=== PATIENT | male | born 1955 | race Two or more races ===

== ENCOUNTER 2018-02-11 09:17 | Inpatient (IN) | payer OTHER ==
[~2018-02-11] VITALS: Ht 152.4 cm; Wt 52.2 kg
--- NOTE | 2018-02-11 09:31 | NUR ---
BIB EMS [facility] FOR POSITIVE OCCULT BLOOD TEST. PT IS AWAKE, NON VERBAL. TRACHED-ON O2. NAD. VSS RR EVEN AND UNLABORED. SKIN IS WARM AND NON DIAPHROETIC. SEEN AND EVALUATED BY ER
[2018-02-11 10:01] LABS: HEMATOCRIT 25 % (39-51); HEMOGLOBIN 8.7 g/dL (13.5-17.5); MEAN CORPUSCULAR HEMOGLOBIN 32 PG (26.0-33.0); MEAN CORPUSCULAR HGB CONC 34 g/dl (31.0-36.0); MEAN CORPUSCULAR VOLUME 95 fL (80-96); NEUTROPHILS % (AUTO) 69.9 % (43.0-81.0); PLATELET COUNT (AUTO) 802 /CMM (150-450); RDW COEFFICIENT OF VARIATION 14.4 (11.5-15.0); RED BLOOD CELL COUNT(AUTO) 2.68 MIL/uL (4.5-6.0); WHITE BLOOD COUNT (AUTO) 16.4 K/uL (4.3-11.0)
[2018-02-11 10:02] LABS: CALCIUM, SERUM 9.3 mg/dL (8.5-10.1); CARBON DIOXIDE 25 mmol/L (21-32); CHLORIDE 102 mmol/L (98-107); CREATININE 1.3 mg/dL (0.6-1.3); EOSINOPHILS % (AUTO) 3.4 % (0.0-6.0); GLUCOSE 113 mg/dL (74-106); INR 0.93 (0.87-1.13); LYMPHOCYTES % (AUTO) 17.5 % (20.0-44.0); MONOCYTES % (AUTO) 8.2 % (2.0-12.0); POTASSIUM 3.5 mmol/L (3.5-5.1); SODIUM SERUM 138 mmol/L (136-145); UREA NITROGEN, BLOOD 33 mg/dL (7-18)
[2018-02-11 10:07] LABS: ALANINE AMINOTRANSFERASE 164 U/L (12-78); ALBUMIN 2.7 g/dL (3.4-5.0); ALKALINE PHOSPHATASE 394 U/L (46-116); ASPARTATE AMINOTRANSFERASE 44 U/L (15-37); BILIRUBIN,TOTAL 0.3 mg/dL (0.2-1.0); LIPASE 153 U/L (73-393); TOTAL PROTEIN, SERUM 7.6 g/dL (6.4-8.2)
[2018-02-11 10:09] LABS: TROPONIN I < 0.017 ng/mL (0.00-0.056)
--- NOTE | 2018-02-11 10:15 | NUR ---
[facility].
[2018-02-11] MEDS ORDERED: AMAN100C16 GT (10:39)
[2018-02-11] MEDS ORDERED: IPRA3AMP23 IH ×2 (10:39)
[2018-02-11] MEDS ORDERED: INSU100V7 SQ (10:39)
[2018-02-11] MEDS ORDERED: CHOL100062 GT (10:39)
[2018-02-11] MEDS ORDERED: AMLO10TA2 GT (10:39)
[2018-02-11] MEDS ORDERED: LABE300T2 PO (10:39)
[2018-02-11] MEDS ORDERED: TERA1CAP4 PO (10:39)
[2018-02-11] MEDS ORDERED: SACC250C GT (10:39)
[2018-02-11] MEDS ORDERED: LORA-259 GT (10:39)
[2018-02-11] MEDS ORDERED: ACET650S26 GT (10:39)
[2018-02-11] MEDS ORDERED: DOCU100C36 GT (10:39)
[2018-02-11] MEDS ORDERED: SENN-167 GT (10:39)
[2018-02-11] MEDS ORDERED: POLY17PO4 PO (10:39)
[2018-02-11] MEDS ORDERED: HYDR-4075 GT (10:39)
[2018-02-11] MEDS ORDERED: HEPA500014 SQ (10:39)
[2018-02-11] MEDS ORDERED: CALC-20 GT (10:39)
[2018-02-11] MEDS ORDERED: THIA100T13 GT (10:39)
--- NOTE | 2018-02-11 11:38 | NUR ---
REPORT GIVEN TO ADAM RODRIGUEZ FOR [facility] TELE [phone]
[2018-02-11 11:40] VITALS: BP 113/76
--- NOTE | 2018-02-11 11:40 | NUR ---
Received patient from ER via rflint. Admitting diagnosis of Anemia. Patient is awake and alert, nonverbal, opens eye, response to verbal stimuli. Patient has a trach on cool aerosol, patient tolerated well, sating at 100%. On telemonitor, SR 83. No acute distress, No sob. No s/s of pain or discomfort. IV on left forearm gauge 20, intact and patent. Patient has a GTUBE, intact and patent. Patient is non ambulatory. Skin assessment done, photos taken and placed it on chart. Kept patient safe and comfortable. Bed in low/locked position, siderails up, HOB elevated, call light in reach. Awaiting for admitting orders. Will continue to monitor accordingly.
[2018-02-11] MEDS ORDERED: ZOLPIDEM TARTRATE 5 MG TABLET PO PRN (13:30)
[2018-02-11] MEDS ORDERED: ACETAMINOPHEN 325 MG TABLET PO PRN (13:30)
[2018-02-11] MEDS ORDERED: Z GUARD REMEDY 2 OZ OINT TP PRN (13:30)
[2018-02-11] MEDS ORDERED: ONDANSETRON HCL/PF 4 MG/2 ML VIAL IVP PRN (13:30)
[2018-02-11] MEDS ORDERED: MAG HYDROX/AL HYDROX/SIMETH 30 ML UDC PO PRN (13:30)
[2018-02-11] MEDS ORDERED: HYDROCODONE/APAP 5/325MG 1 EACH TABLET PO PRN (13:30)
[2018-02-11 16:00] VITALS: BP 138/50
[2018-02-11 16:10] VITALS: BP 127/69
--- NOTE | 2018-02-11 16:30 | NUR ---
RN NOTES Antionette Corley NP at bedside. New orders noted and carried out.
--- NOTE | 2018-02-11 16:32 | NUR ---
RN NOTES Notified Antionette Corley NP about patient's medrecon. Per Antionette, "OK".
--- NOTE | 2018-02-11 16:54 | NUR ---
sputum specimen collected for sputum culture as ordered by Antionette Corley,SENIOR CLINICAL PROJECT MANAGER
[2018-02-11] MEDS ORDERED: LORAZEPAM 1 MG TABLET GT PRN (17:00)
--- NOTE | 2018-02-11 17:55 | NUR ---
[facility] Per Leonarda, patients's getting Nepro 1.8 @50cc/hr x 20hrs. Called the kitchen and placed the order.
--- NOTE | 2018-02-11 18:00 | NUR ---
Unable to collect urine specimen. will endorse specimen collection to night RN.
[2018-02-11] MEDS: THIAMINE HCL 100 MG TABLET GT SCH (18:03)
[2018-02-11] MEDS: DOCUSATE SODIUM 100 MG CAPSULE PO SCH (18:03)
--- NOTE | 2018-02-11 19:05 | NUR ---
EMERGENCY PHYSICIAN OPENING NOTES: RECEIVED PT IN BED AND IS SITTING UPRIGHT. PT IS NONVERBAL AND OPENS EYES. PT IS CONNECTED TO PULSE OX. PT IS ON TRACH COLLAR AND IS ON 5LPM VIA COOL AEROSOL. IV REMAINS INTACT. CURRENTLY H/L. PT TO BE STARTED ON G TUBE FEEDING NEPRO. PT HAS G TUBE AND IS PATENT AND INTACT. HAS BEEN FLUSHED. PT ON TELE BOX AND READING SHOWS SR 84 WITH BBBS. CALL LIGHT WITHIN PT'S REACH. BED KEPT IN LOW, LOCKED POSITION, AND SIDE RAILS X 2UP. WILL CONTINUE TO MONITOR PT.
--- NOTE | 2018-02-11 19:30 | NUR ---
RN CLOSING NOTES PATIENT IN STABLE CONDITION. ALL NEEDS ATTENDED AND PROVIDED. KEPT PATIENT SAFE AND COMFORTABLE. TURNED AND REPOSITIONED EVERY 2 HRS NEEDED. BED IN LOW/LOCKED POSITION, SIDERAILS UP, HOB ELEVATED, CALL LIGHT IN REACH. ENDORSED TO NIGHT RN FOR HAMILTON.
[2018-02-11] MEDS: NEPRO 1,000 ML BOTTLE GT PRN (19:32)
[2018-02-11 20:35] VITALS: BP 129/79
[2018-02-11] MEDS: CALCIUM CARB 600MG /VIT D 1 EACH TABLET GT SCH (21:23)
[2018-02-11] MEDS: LABETALOL HCL (100MG) 100 MG TABLET PO SCH (21:24)
--- NOTE | 2018-02-11 23:40 | NUR ---
PATIENT ACCESS COORDINATOR NOTES: SPOKE WITH DR. ALYCE Ellis INFORMED HIM THAT PT HAS HX OF DM2 BUT NOT ON ACCUCHEKS. GOT ORDER FOR ACCUCHEKS Q6HR AND MILD SLIDING SCALE.
[2018-02-12] MEDS ORDERED: DEXTROSE 50%-WATER 50 ML DISP.SYRIN IV PRN (00:30)
[2018-02-12] MEDS ORDERED: INSULIN REGULAR, HUMAN 100 UNIT/ML 3 ML VIAL SQ PRN (00:30)
[2018-02-12 00:35] VITALS: BP 126/86
[2018-02-12 03:01] LABS: APPEARANCE,URINE CLEAR (CLEAR); BILIRUBIN,URINE NEGATIVE (NEGATIVE); BLOOD, URINE NEGATIVE Ery/uL (NEGATIVE); COLOR,URINE YELLOW (YELLOW); KETONES,URINE NEGATIVE (NEGATIVE); LEUKOCYTE ESTERASE ,URINE NEGATIVE (NEGATIVE); NITRITE, URINE NEGATIVE (NEGATIVE); PH,URINE 6.5 (5.0-8.0); PROTEIN,URINE TRACE mg/dl (NEGATIVE); UGLUCOSE NEGATIVE (NEGATIVE); UROBILINOGEN,URINE 0.2 EU/dL (0.2)
[2018-02-12 03:10] LABS: BACTERIA,URINE None seen /HPF (None Seen); RBC,URINE NONE SEEN /HPF (0-2); WBC,URINE 0-2 /HPF (0-3)
[2018-02-12 03:11] LABS: SQUAMOUS EPITHELIAL CELL,UR Few /HPF (None Seen)
[2018-02-12 04:24] VITALS: BP 125/64
--- NOTE | 2018-02-12 04:26 | NUR ---
TOWER OPERATOR NOTES: HAD TO GET 4 TABLETS OF LABETALOL 100MG IN ONE MEDROOM AND THE REMAINDER WHICH IS 2 TABLETS OF LABETALOL 100MG IN ANOTHER MEDROOM SINCE BOTH MEDROOMS DID NOT HAVE SUFFICIENT 6 TABLETS TO MEET THE 600MG.
[2018-02-12] MEDS: LABETALOL HCL (100MG) 100 MG TABLET PO SCH ×3 (04:27→21:41)
[2018-02-12] MEDS: BLOOD SUGAR DIAGNOSTIC 1 EACH STRIP IN SCH ×4 (05:18→23:47)
--- NOTE | 2018-02-12 05:18 | NUR ---
ASBESTOS WIRE FINISHER NOTES: BLOOD SUGAR 107. NO INSULIN WAS ADMINISTERED. PT ON TUBE FEEDING NEPRO 50 CC/HR. WILL CONTINUE TO MONITOR.
--- NOTE | 2018-02-12 06:45 | NUR ---
HELICOPTER DISPATCHER CLOSING NOTES: ALL NEEDS WERE ATTENDED AND ANTICIPATED FOR. PT KEPT CLEAN, DRY, AND COMFORTABLE. PT TURNED AND REPOSITIONED PER PROTOCOL. PT REMAINS ON TRACH COLLAR AT 5LPM AND CONNECTED TO CONTINUOUS PULSE OX FOR MONITORING. PT ON TELE BOX AND READING SHOWS SR WITH 74 WITH BBBS. PT OPENS EYES. PT ON GTUBE FEEDING NEPRO [id number]. NO RESIDUAL NOTED. IV REMAINS INTACT. CURRENTLY S/L. CALL LIGHT WITHIN PT'S REACH. BED KEPT IN LOW, LOCKED POSITION, AND SIDE RAILS X 2UP. WILL ENDORSE TO AM NURSE FOR HAMILTON.
--- NOTE | 2018-02-12 07:21 | NUR ---
SHEET LAYER OPENING NOTES RECEIVED PATIENT IN BED RESTING. HOB ELEVATED. PATIENT IS NONVERBAL AND OPENS EYES. PATIENT ON TRACH COLLAR AND IS ON 5LPM VIA COOL AEROSOL. IV SITE INTACT AND PATENT. GTUBE IN PLACED, NEPRO FEEDING RUNNING AT 50cc/hr. ON TELEMONITORING, SR 80 WITH BBBS. KEPT PATIENT SAFE AND COMFORTABLE. BED IN LOW, LOCKED POSITION, AND SIDE RAILS UP X2. CALL LIGHT IN REACH. WILL CONTINUE TO MONITOR ACCORDINGLY.
[2018-02-12 07:41] LABS: CALCIUM, SERUM 9.7 mg/dL (8.5-10.1); CREATININE 1.5 mg/dL (0.6-1.3); MAGNESIUM 2.5 mg/dL (1.8-2.4); PHOSPHORUS 4.8 mg/dL (2.5-4.9); POTASSIUM 3.5 mmol/L (3.5-5.1)
[2018-02-12 07:49] LABS: BASOPHILS # (AUTO) 0.1 /CMM (0.0-0.2); BASOPHILS % (AUTO) 0.8 % (0.0-2.0); EOSINOPHILS % (AUTO) 3.3 % (0.0-6.0); HEMATOCRIT 25 % (39-51); HEMOGLOBIN 9.1 g/dL (13.5-17.5); LYMPHOCYTES # (AUTO) 2.2 /CMM (0.8-4.8); LYMPHOCYTES % (AUTO) 17.7 % (20.0-44.0); MEAN CORPUSCULAR HEMOGLOBIN 34 PG (26.0-33.0); MEAN CORPUSCULAR HGB CONC 36 g/dl (31.0-36.0); MEAN CORPUSCULAR VOLUME 93 fL (80-96); MONOCYTES % (AUTO) 7.7 % (2.0-12.0); NEUTROPHILS # (AUTO) 8.8 /CMM (1.8-8.9); NEUTROPHILS % (AUTO) 70.5 % (43.0-81.0); PLATELET COUNT (AUTO) 789 /CMM (150-450); RDW COEFFICIENT OF VARIATION 14.3 (11.5-15.0); RED BLOOD CELL COUNT(AUTO) 2.68 MIL/uL (4.5-6.0); WHITE BLOOD COUNT (AUTO) 12.5 K/uL (4.3-11.0)
[2018-02-12 08:27] VITALS: BP 94/54
[2018-02-12] MEDS: CHOLECALCIFEROL 1,000 UNIT TABLET (VIT D3) GT SCH (08:30)
[2018-02-12] MEDS: DOCUSATE SODIUM 100 MG CAPSULE PO SCH ×2 (08:31→17:00)
[2018-02-12] MEDS: CALCIUM CARB 600MG /VIT D 1 EACH TABLET GT SCH ×2 (08:31→21:41)
[2018-02-12] MEDS: TERAZOSIN HCL 1 MG CAPSULE PO SCH (08:33)
[2018-02-12] MEDS: AMLODIPINE BESYLATE 10 MG TABLET GT SCH (08:34)
[2018-02-12] MEDS: hydrALAZINE HCL 10 MG TABLET GT SCH (08:34)
[2018-02-12] MEDS: IV NS 0.9% 1,000 ML IV PRN (11:09)
[2018-02-12] MEDS ORDERED: LEVOFLOXACIN 500 MG /D5W 100ML 500 MG in PREMIX 1 EA IV ONE (12:00)
[2018-02-12 12:57] LABS: THYROID STIMULATING HORMONE 2.905 uIU/mL (0.358-3.74); URIC ACID 8.7 mg/dL (2.6-7.2)
[2018-02-12 16:28] VITALS: BP 148/91
[2018-02-12] MEDS: THIAMINE HCL 100 MG TABLET GT SCH (17:06)
--- NOTE | 2018-02-12 17:07 | NUR ---
RN NOTES HELD COLACE, PATIENT HAD A LOOSE STOOL. WILL MONITOR ACCORDINGLY.
--- NOTE | 2018-02-12 18:00 | NUR ---
RN NOTES UNABLE TO COLLECT STOOL SPECIMEN FOR OB, WILL ENDORSE COLLECTION TO NIGHT RN
--- NOTE | 2018-02-12 19:25 | NUR ---
MS RN OPENING NOTES: RECEIVED PT AND IS NONVERBAL. EYES ARE OPEN. PT IS ON IV FLUIDS AT NS 75ML/HR. PT ON TRACH COLLAR AT 5LPM COOL AEROSOL. PT ON CONT PULSE OX. PT TO BE RESTARTED ON GTUBE NEPRO FEEDING. PT HAS G TUBE FEEDING. NO RESIDUAL NOTED. PT HIGH PABLO'S POSITION. CALL LIGHT WITHIN PT'S REACH. BED KEPT IN LOW, LOCKED POSITION, AND SIDE RAILS X 3UP. WILL CONTINUE TO MONITOR PT.
[2018-02-12] MEDS: NEPRO 1,000 ML BOTTLE GT PRN (19:42)
[2018-02-12 20:00] VITALS: BP 146/90
--- NOTE | 2018-02-12 20:58 | NUR ---
MS RN NOTES: 3 FAMILY MEMBERS AT BEDSIDE.
[2018-02-13] MEDS: IV NS 0.9% 1,000 ML IV PRN ×2 (00:41→16:49)
[2018-02-13] MEDS: LABETALOL HCL (100MG) 100 MG TABLET PO SCH ×2 (04:59→12:40)
[2018-02-13] MEDS: BLOOD SUGAR DIAGNOSTIC 1 EACH STRIP IN SCH ×3 (05:00→17:38)
--- NOTE | 2018-02-13 06:39 | NUR ---
MS RN CLOSING NOTES: ALL NEEDS WERE ATTENDED AND ANTICIPATED FOR. PT KEPT CLEAN, DRY, AND COMFORTABLE. PT TURNED AND REPOSITIONED PER PROTOCOL. PT REMAINS ON TRACH COLLAR 5LPM VIA COOL AEROSOL. PT OPENS EYES AND IS NONVERBAL. WOUND TX PERFORMED ORDERED. STOOL FOR OB WAS COLLECTED THIS AM AND PLACED IN REFRIGERATOR. PT ON G TUBE AND FEEDING IS AT NEPRO 50CC/HR. NO RESIDUAL NOTED. PT IN SEMI-PABLO'S POSITION. CALL LIGHT WITHIN PT'S REACH. BED KEPT IN LOW, LOCKED POSITION, AND SIDE RAILS X 2UP. WILL ENDORSE TO AM NURSE FOR HAMILTON.
[2018-02-13 06:46] LABS: CREATININE 1.4 mg/dL (0.6-1.3); MAGNESIUM 2.2 mg/dL (1.8-2.4); PHOSPHORUS 4.4 mg/dL (2.5-4.9); POTASSIUM 3.6 mmol/L (3.5-5.1)
[2018-02-13 06:54] LABS: BASOPHILS # (AUTO) 0.1 /CMM (0.0-0.2); BASOPHILS % (AUTO) 0.7 % (0.0-2.0); EOSINOPHILS % (AUTO) 3.1 % (0.0-6.0); HEMATOCRIT 26 % (39-51); HEMOGLOBIN 9.5 g/dL (13.5-17.5); LYMPHOCYTES # (AUTO) 1.9 /CMM (0.8-4.8); LYMPHOCYTES % (AUTO) 16.3 % (20.0-44.0); MEAN CORPUSCULAR HEMOGLOBIN 35 PG (26.0-33.0); MEAN CORPUSCULAR HGB CONC 37 g/dl (31.0-36.0); MEAN CORPUSCULAR VOLUME 94 fL (80-96); MONOCYTES # (AUTO) 1.1 /CMM (0.1-1.30); MONOCYTES % (AUTO) 9.4 % (2.0-12.0); NEUTROPHILS % (AUTO) 70.5 % (43.0-81.0); PLATELET COUNT (AUTO) 753 /CMM (150-450); RDW COEFFICIENT OF VARIATION 15.1 (11.5-15.0); RED BLOOD CELL COUNT(AUTO) 2.74 MIL/uL (4.5-6.0); WHITE BLOOD COUNT (AUTO) 11.5 K/uL (4.3-11.0)
--- NOTE | 2018-02-13 07:30 | NUR ---
AM RN NOTE Received patient awake, non-verbal. On trach collar @5LPM cool aerosol. Continue on GT feeding as ordered. IV site intact and patent. Bed in low locked position. Will continue to monitor.
[2018-02-13 08:00] VITALS: BP 122/75
[2018-02-13] MEDS: CHOLECALCIFEROL 1,000 UNIT TABLET (VIT D3) GT SCH (08:33)
[2018-02-13] MEDS: AMLODIPINE BESYLATE 10 MG TABLET GT SCH (08:33)
[2018-02-13] MEDS: CALCIUM CARB 600MG /VIT D 1 EACH TABLET GT SCH (08:33)
[2018-02-13] MEDS: hydrALAZINE HCL 10 MG TABLET GT SCH (08:34)
[2018-02-13] MEDS: TERAZOSIN HCL 1 MG CAPSULE PO SCH (08:34)
[2018-02-13] MEDS: DOCUSATE SODIUM 100 MG CAPSULE PO SCH ×2 (08:34→17:38)
[2018-02-13] MEDS ORDERED: AMANTADINE HCL 100 MG CAPSULE GT SCH (09:00)
[2018-02-13] MEDS ORDERED: LEVOFLOXACIN 250 MG /D5W 50 ML 250 MG in PREMIX 1 EA IV SCH (12:00)
--- NOTE | 2018-02-13 14:09 | NUR ---
AM RN NOTE Pt positive for MRSA nares, new order obtained for Bactroban from noted and carried out.
[2018-02-13 16:00] VITALS: BP 131/77
[2018-02-13] MEDS: THIAMINE HCL 100 MG TABLET GT SCH (17:38)
--- NOTE | 2018-02-13 18:41 | NUR ---
AM RN NOTE Pt with new order for discharge noted. Skin pictures taken and placed in chart. Pt calm, will endorse remaining discharge paperwork and pt's care to next shift.
[2018-02-13 18:44] LABS: OCCULT BLOOD STOOL NEGATIVE (NEGATIVE)
--- NOTE | 2018-02-13 19:05 | NUR ---
RN NOTES RECEIVED REPORT FROM MORNING RN PT IS FOR DISCHARGE AND WILL BE TIME STUDY STATISTICIAN AT 1999. PT AWAKE, HOB ELEVATED WITH COOL AEROSOL AT 5LPM O2 VIA TRACH AND TOLERATED WELL. IV ACCESS ON LEFT FOREARM PATENT AND INTACT WITH ONGOING IVF INFUSING WELL. GT PATENT AND INTACT. KEPT CLEAN AND DRY. AWAITING FOR AMBULANCE FOR TIME STUDY STATISTICIAN.
[2018-02-13 20:37] VITALS: BP 111/55
[2018-02-13] MEDS ORDERED: MUPIROCIN OINT 2% 22 GM TUBE SCH (21:00)
--- NOTE | 2018-02-13 21:00 | NUR ---
RN NOTES PT PICKED UP BY [facility], VITAL SIGNS STABLE, NO SIGNS OF DISTRESS AND DISCOMFORT NOTED. IV CATHETER REMOVED COMPLETELY. RT ASSISTED IN SETTING UP THE T-PIECE WHEN PT IS IN THE GURNEY. DISCHARGED WAKE, IN STABLE CONDITION.
== END 2018-02-13 21:00 | DRG 137 ==
LOC: ER 09:18 → TELE 11:22 → MED 02-12 08:49
PROVIDERS: ADMIT Nurse Practitioner Acute Care; ATTEND Nurse Practitioner Acute Care
DX: J15.6 Pneumonia due to other Gram-negative bacteria (principal); N17.0 Acute kidney failure with tubular necrosis; G93.41 Metabolic encephalopathy; J96.10 Chronic respiratory failure, unspecified whether with hypoxia or hypercapnia; L89.310 Pressure ulcer of right buttock, unstageable; E44.0 Moderate protein-calorie malnutrition; L89.322 Pressure ulcer of left buttock, stage 2; D72.829 Elevated white blood cell count, unspecified; K92.2 Gastrointestinal hemorrhage, unspecified; D64.9 Anemia, unspecified; R74.0 Nonspecific elevation of levels of transaminase and lactic acid dehydrogenase [LDH]; Z68.22 Body mass index [BMI] 22.0-22.9, adult; D47.3 Essential (hemorrhagic) thrombocythemia; Z93.1 Gastrostomy status; Z93.0 Tracheostomy status; N39.0 Urinary tract infection, site not specified; R32 Unspecified urinary incontinence; L22 Diaper dermatitis; E86.9 Volume depletion, unspecified
CPT/HCPCS: 31720; 36415; 71045-TC; 80048-TC; 80061-TC; 80076-TC; 81000-TC; 82272-TC; 82306; 82378; 82728-TC; 82746; 82962-TC; 83540-TC; 83615-TC; 83690-TC; 83735-TC; 84100-TC; 84443-TC; 84484-TC; 84550-TC; 85025-TC; 85652-TC; 85730-TC; 87070-TC; 87081-TC; 87086-TC; 87186-TC; 94640-TC; A4216; A4349; A4606; J1815; J1956; J7030; Z7610

== ENCOUNTER 2019-03-23 19:00 | Inpatient (IN) | payer MEDICAID ==
[~2019-03-23 19:00] MED LIST: ACET650S26 GT; AMAN100C16 GT; AMLO10TA7 GT; CALC-20 GT; CHOL100062 GT; DOCU100C36 GT; HYDR-4075 GT; INSU100V7 SQ; IPRA3AMP23 IH; LABE300T2 PO; LORA-259 GT; POLY17PO4 PO; SACC250C GT; SENN-168 GT; TERA1CAP4 GT; THIA100T13 GT
[2019-03-23] MEDS ORDERED: EPOE1VIA7 SQ (19:30)
[2019-03-23] MEDS ORDERED: DOCU50LI GT (19:30)
[2019-03-23] MEDS ORDERED: NUT.237L67 GT (19:30)
[2019-03-23] MEDS ORDERED: ASPI-1169 GT (19:30)
[2019-03-23] MEDS ORDERED: PANTOPRAZOLE 40 MG VIAL IV ONE (19:30)
[2019-03-23] MEDS ORDERED: ALBU2.5V38 IH (19:30)
[2019-03-23] MEDS ORDERED: PANTOPRAZOLE 40 MG VIAL ONE (19:30)
[2019-03-23] MEDS ORDERED: OMEG1CAP GT (19:30)
[2019-03-23] MEDS ORDERED: MAGN400O6 GT (19:30)
[2019-03-23] MEDS ORDERED: GEMF600T5 GT (19:30)
[2019-03-23] MEDS ORDERED: CHLO473M5 MM (19:30)
[2019-03-23] MEDS ORDERED: LABE200T5 GT (19:30)
[2019-03-23] MEDS ORDERED: IV NS 0.9% 1,000 ML BAG IV ONE (19:30)
[2019-03-23] MEDS ORDERED: ACET650S26 GT (19:30)
[2019-03-23] MEDS ORDERED: INSU100V3 SQ (19:30)
[2019-03-23] MEDS ORDERED: POTA20PA34 GT (19:30)
[2019-03-23] MEDS ORDERED: INSU100I26 SQ (19:30)
[2019-03-23] MEDS ORDERED: BISA10SU11 RC (19:30)
[2019-03-23] MEDS ORDERED: NA P133E RC (19:30)
[2019-03-24] MEDS ORDERED: Z GUARD REMEDY 2 OZ OINT TP PRN
[2019-03-24] MEDS ORDERED: ONDANSETRON HCL/PF 4 MG/2 ML VIAL IVP PRN
[2019-03-24] MEDS ORDERED: ACETAMINOPHEN 650 MG/SUPP.RECT RC PRN
[2019-03-24] MEDS ORDERED: DEXTROSE 50%-WATER 50 ML DISP.SYRIN IV PRN
[2019-03-24] MEDS: IV D5 LR 1,000 ML IV PRN ×2 (00:20→09:42)
[2019-03-24] MEDS: BLOOD SUGAR DIAGNOSTIC 1 EACH STRIP IN SCH ×4 (00:38→17:19)
[2019-03-24] MEDS: INSULIN REGULAR, HUMAN 100 UNIT/ML 3 ML VIAL SQ PRN (06:33)
[2019-03-24] MEDS ORDERED: PANTOPRAZOLE 40 MG VIAL IV SCH (09:00)
[2019-03-24] MEDS: IV D5/0.45 NACL 1,000 ML IV PRN (09:58)
[2019-03-24] MEDS: NEXIUM 40 MG VIAL IV SCH (16:36)
[2019-03-25] MEDS: BLOOD SUGAR DIAGNOSTIC 1 EACH STRIP IN SCH ×4 (00:06→17:22)
[2019-03-25] MEDS: IV D5/0.45 NACL 1,000 ML IV PRN (00:23)
[2019-03-25] MEDS: NEXIUM 40 MG VIAL IV SCH ×2 (08:20→17:22)
[2019-03-25] MEDS ORDERED: POTASSIUM CL. PREMIX PERIPHER. 50 ML IV SCH (10:46)
[2019-03-25] MEDS: SUCRALFATE 1 G/10 ML UDC GT SCH ×2 (12:30→17:22)
[2019-03-25] MEDS: IV D5W 1,000 ML IV PRN (12:32)
[2019-03-25] MEDS: INSULIN REGULAR, HUMAN 100 UNIT/ML 3 ML VIAL SQ PRN ×2 (12:40→17:28)
[2019-03-25] MEDS: NEOMY SULF/BACITRAC ZN/POLY 15 GM TUBE TP SCH (18:30)
[2019-03-25] MEDS: MUPIROCIN OINT 2% 22 GM TUBE SCH (21:27)
[2019-03-26] MEDS: BLOOD SUGAR DIAGNOSTIC 1 EACH STRIP IN SCH ×4 (00:29→18:25)
[2019-03-26] MEDS: SUCRALFATE 1 G/10 ML UDC GT SCH ×4 (00:29→18:24)
[2019-03-26] MEDS: NEPRO 1,000 ML BOTTLE GT PRN (00:29)
[2019-03-26] MEDS: IV D5W 1,000 ML IV PRN (05:29)
[2019-03-26] MEDS: NEXIUM 40 MG VIAL IV SCH ×2 (09:54→18:24)
[2019-03-26] MEDS: NEOMY SULF/BACITRAC ZN/POLY 15 GM TUBE TP SCH (09:54)
[2019-03-26] MEDS: MUPIROCIN OINT 2% 22 GM TUBE SCH ×2 (10:10→23:27)
[2019-03-26] MEDS ORDERED: POTASSIUM CHLORIDE 20 MEQ POWDER PACKET GT SCH (12:30)
[2019-03-26] MEDS: INSULIN REGULAR, HUMAN 100 UNIT/ML 3 ML VIAL SQ PRN (18:48)
[2019-03-27] MEDS: BLOOD SUGAR DIAGNOSTIC 1 EACH STRIP IN SCH ×5 (00:21→23:30)
[2019-03-27] MEDS: SUCRALFATE 1 G/10 ML UDC GT SCH ×5 (00:21→23:32)
[2019-03-27] MEDS: NEPRO 1,000 ML BOTTLE GT PRN (06:06)
[2019-03-27] MEDS: IV D5W 1,000 ML IV PRN (06:13)
[2019-03-27] MEDS: INSULIN REGULAR, HUMAN 100 UNIT/ML 3 ML VIAL SQ PRN ×4 (07:07→23:31)
[2019-03-27] MEDS: NEXIUM 40 MG VIAL IV SCH ×2 (09:29→18:07)
[2019-03-27] MEDS: MUPIROCIN OINT 2% 22 GM TUBE SCH ×2 (09:32→21:06)
[2019-03-27] MEDS: NEOMY SULF/BACITRAC ZN/POLY 15 GM TUBE TP SCH (09:35)
[2019-03-27] MEDS ORDERED: NEUTRA PHOS 1 POWD.PACKET GT ONE (13:30)
[2019-03-27] MEDS: Potassium Chloride 40 MEQ in IV D5W 1,000 ML IV PRN (13:39)
[2019-03-27] MEDS ORDERED: ACETAMINOPHEN 325 MG TABLET PO PRN ×2 (21:00)
[2019-03-28] MEDS: Potassium Chloride 40 MEQ in IV D5W 1,000 ML IV PRN ×2 (01:47→18:00)
[2019-03-28] MEDS: NEPRO 1,000 ML BOTTLE GT PRN (01:48)
[2019-03-28] MEDS: SUCRALFATE 1 G/10 ML UDC GT SCH ×3 (06:03→17:23)
[2019-03-28] MEDS: BLOOD SUGAR DIAGNOSTIC 1 EACH STRIP IN SCH ×3 (06:03→17:33)
[2019-03-28] MEDS: NEOMY SULF/BACITRAC ZN/POLY 15 GM TUBE TP SCH (08:29)
[2019-03-28] MEDS: NEXIUM 40 MG VIAL IV SCH ×2 (08:29→17:23)
[2019-03-28] MEDS: MUPIROCIN OINT 2% 22 GM TUBE SCH ×2 (08:31→21:41)
[2019-03-28] MEDS ORDERED: VANCOMYCIN 1 GM in IV D5W 250 ML IV STA (11:25)
[2019-03-28] MEDS: INSULIN REGULAR, HUMAN 100 UNIT/ML 3 ML VIAL SQ PRN ×2 (11:28→17:26)
[2019-03-28] MEDS ORDERED: FEE PK DOSING 1 MIN EA MC ONE (11:39)
[2019-03-28] MEDS: VANCOMYCIN 0.75 GM in IV D5W 250 ML IV SCH (12:54)
[2019-03-28] MEDS: MEROPENEM 500 MG in IV NS 0.9% 50 ML IV SCH ×2 (14:18→21:40)
[2019-03-29] MEDS: SUCRALFATE 1 G/10 ML UDC GT SCH ×3 (00:35→12:45)
[2019-03-29] MEDS: BLOOD SUGAR DIAGNOSTIC 1 EACH STRIP IN SCH ×3 (00:35→12:42)
[2019-03-29] MEDS: INSULIN REGULAR, HUMAN 100 UNIT/ML 3 ML VIAL SQ PRN (00:41)
[2019-03-29] MEDS: VANCOMYCIN 0.75 GM in IV D5W 250 ML IV SCH ×2 (00:45→12:44)
[2019-03-29] MEDS: NEPRO 1,000 ML BOTTLE GT PRN (02:23)
[2019-03-29] MEDS: MEROPENEM 500 MG in IV NS 0.9% 50 ML IV SCH ×2 (05:31→14:28)
[2019-03-29] MEDS: MUPIROCIN OINT 2% 22 GM TUBE SCH (09:37)
[2019-03-29] MEDS: NEOMY SULF/BACITRAC ZN/POLY 15 GM TUBE TP SCH (09:37)
[2019-03-29] MEDS: NEXIUM 40 MG VIAL IV SCH (10:43)
[2019-03-29] MEDS ORDERED: ESOM40VI IV (11:28)
[2019-03-29] MEDS ORDERED: VANC750P13 IV (11:30)
[2019-03-29] MEDS ORDERED: MERO500V3 IV (11:30)
== END 2019-03-29 17:40 | DRG 241 ==
DX: K25.4 Chronic or unspecified gastric ulcer with hemorrhage (principal); N17.0 Acute kidney failure with tubular necrosis; G93.49 Other encephalopathy; Z99.11 Dependence on respirator [ventilator] status; J96.10 Chronic respiratory failure, unspecified whether with hypoxia or hypercapnia; E44.0 Moderate protein-calorie malnutrition; R53.2 Functional quadriplegia; K22.70 Barrett's esophagus without dysplasia; E87.0 Hyperosmolality and hypernatremia; I50.9 Heart failure, unspecified; D72.829 Elevated white blood cell count, unspecified; E86.1 Hypovolemia; Z93.1 Gastrostomy status; Z93.0 Tracheostomy status; Z79.4 Long term (current) use of insulin; Z79.82 Long term (current) use of aspirin; R13.10 Dysphagia, unspecified; E11.65 Type 2 diabetes mellitus with hyperglycemia; D63.8 Anemia in other chronic diseases classified elsewhere; G40.909 Epilepsy, unspecified, not intractable, without status epilepticus; K21.9 Gastro-esophageal reflux disease without esophagitis; G81.90 Hemiplegia, unspecified affecting unspecified side; D62 Acute posthemorrhagic anemia; E86.9 Volume depletion, unspecified; E88.09 Other disorders of plasma-protein metabolism, not elsewhere classified; Z68.24 Body mass index [BMI] 24.0-24.9, adult; L90.5 Scar conditions and fibrosis of skin; I13.0 Hypertensive heart and chronic kidney disease with heart failure and stage 1 through stage 4 chronic kidney disease, or unspecified chronic kidney disease; N18.9 Chronic kidney disease, unspecified

== ENCOUNTER 2019-05-04 13:33 | Inpatient (IN) | payer MEDICAID ==
[~2019-05-04] VITALS: Ht 165.1 cm; Wt 66.7 kg
[~2019-05-04 13:33] MED LIST changes: +ALBU2.5V38 IH; +ASPI-1169 GT; +BISA10SU11 RC; +CHLO473M5 MM; -DOCU100C36 GT; +DOCU50LI GT; +EPOE1VIA7 SQ; +ESOM40VI IV; +GEMF600T5 GT; +INSU100I26 SQ; +INSU100V3 SQ; -INSU100V7 SQ; +LABE200T5 GT; -LABE300T2 PO; -LORA-259 GT; +MAGN400O6 GT; +MERO500V3 IV; +NA P133E RC; +NUT.237L67 GT; +OMEG1CAP GT; -POLY17PO4 PO; +POTA20PA3 GT; -SACC250C GT; -SENN-168 GT; +VANC750P13 IV
[2019-05-04] MEDS ORDERED: OMEP20CA11 GT (13:47)
[2019-05-04] MEDS ORDERED: FERR300L GT (13:47)
--- NOTE | 2019-05-04 13:52 | NUR ---
[id number], FROM SNF, CAME IN DUE TO POSSIBLE ASPIRATION, TURNED CYANOTIC FOR 5 SECONDS AND CAME BACK TO NORMAL AFTER TRACH SUCTIONING. PT NON VERBAL, EYES OPEN. RR EVEN & UNLABORED. SKIN PINK WARM & INTACT. PLACED ON FACETOR. WILL CONT TO MONITOR.
[2019-05-04 13:59] LABS: BASOPHILS # (AUTO) 0.1 /CMM (0.0-0.2); BASOPHILS % (AUTO) 1.1 % (0.0-2.0); EOSINOPHILS % (AUTO) 7.2 % (0.0-6.0); HEMATOCRIT 41 % (39-51); HEMOGLOBIN 13.5 g/dL (13.5-17.5); LYMPHOCYTES # (AUTO) 1.2 /CMM (0.8-4.8); LYMPHOCYTES % (AUTO) 9.4 % (20.0-44.0); MEAN CORPUSCULAR HGB CONC 33 g/dl (31.0-36.0); MEAN CORPUSCULAR VOLUME 88 fL (80-96); MONOCYTES # (AUTO) 0.7 /CMM (0.1-1.30); MONOCYTES % (AUTO) 5.8 % (2.0-12.0); NEUTROPHILS # (AUTO) 9.5 /CMM (1.8-8.9); NEUTROPHILS % (AUTO) 76.5 % (43.0-81.0); PLATELET COUNT (AUTO) 467 /CMM (150-450); RED BLOOD CELL COUNT(AUTO) 4.69 MIL/uL (4.5-6.0); WHITE BLOOD COUNT (AUTO) 12.4 K/uL (4.3-11.0)
[2019-05-04 14:06] LABS: CALCIUM, SERUM 9.6 mg/dL (8.5-10.1); CREATININE 1.7 mg/dL (0.6-1.3); POTASSIUM 4.4 mmol/L (3.5-5.1)
[2019-05-04] MEDS ORDERED: CLINDAMYCIN 600 MG in IV D5W 100 ML IV ONE (14:30)
[2019-05-04] MEDS ORDERED: LEVOFLOXACIN 750 MG /D5W 150ML 150 ML IV ONE (14:30)
[2019-05-04 14:52] LABS: ALANINE AMINOTRANSFERASE 25 U/L (12-78); ALBUMIN 3.4 g/dL (3.4-5.0); ALKALINE PHOSPHATASE 129 U/L (46-116); ASPARTATE AMINOTRANSFERASE 20 U/L (15-37); B-TYPE NATRIURETIC PEPTIDE 217 PG/ML (0-125); BILIRUBIN,DIRECT 0.1 mg/dL (0.0-0.2); BILIRUBIN,TOTAL 0.2 mg/dL (0.2-1.0); TOTAL PROTEIN, SERUM 8.8 g/dL (6.4-8.2)
--- NOTE | 2019-05-04 15:30 | NUR ---
PT EYES OPEN, NON VERBAL. RR EVEN & UNLABORED. SKIN PINK WARM & DRY. ON AUTOMOBILE DAMAGE FIELD APPRAISER, SR. NO ACUTE DISTRESS NOTED @ THIS TIME. WILL CONT TO MONITOR.
--- NOTE | 2019-05-04 15:53 | NUR ---
CALLED NURSING SUP FOR BED
[2019-05-04] MEDS ORDERED: INSULIN REGULAR, HUMAN 100 UNIT/ML 3 ML VIAL SQ PRN (16:00)
[2019-05-04] MEDS ORDERED: IV NS 0.9% 1,000 ML IV SCH (16:00)
[2019-05-04] MEDS ORDERED: hydrALAZINE HCL 10 MG TABLET GT PRN (16:00)
[2019-05-04] MEDS ORDERED: MAGNESIUM HYDROXIDE 30 ML UDC PO PRN (16:00)
[2019-05-04] MEDS ORDERED: Z GUARD REMEDY 2 OZ OINT TP PRN (16:00)
[2019-05-04] MEDS ORDERED: *INSULIN REGULAR(HUMULIN R)HUM 100 UNIT/ML VIAL SQ PRN (16:00)
[2019-05-04] MEDS ORDERED: BISACODYL SUPP (10 MG) 10 MG/SUPP.RECT SUPP.RECT RC PRN (16:00)
[2019-05-04] MEDS ORDERED: IV NS 0.9% 1,000 ML BAG IV ONE (16:00)
[2019-05-04] MEDS ORDERED: DEXTROSE 50%-WATER 50 ML DISP.SYRIN IV PRN (16:00)
[2019-05-04] MEDS ORDERED: ACETAMINOPHEN 325 MG TABLET PO PRN (16:00)
[2019-05-04] MEDS ORDERED: ACETAMINOPHEN 650 MG/20.3 ML UDC GT PRN ×2 (16:00)
[2019-05-04] MEDS ORDERED: MAG HYDROX/AL HYDROX/SIMETH 30 ML UDC PO PRN (16:00)
[2019-05-04] MEDS ORDERED: NA PHOS,M-B/NA PHOS,DI-BA 1 EA ENEMA RC PRN (16:00)
[2019-05-04] MEDS ORDERED: ALBUTEROL FS 2.5 MG/3 ML VIAL.NEB IH PRN (16:00)
[2019-05-04] MEDS ORDERED: MAGNESIUM HYDROXIDE 30 ML UDC GT PRN (16:00)
--- NOTE | 2019-05-04 16:44 | NUR ---
REPORT GIVEN TO ADAM NIELSEN FOR HAMILTON
[2019-05-04] MEDS: FERROUS SULFATE UDC 300 MG/5 ML UDC GT SCH (17:00)
[2019-05-04] MEDS: DOCUSATE SODIUM LIQ 100 MG/10 ML UDC GT SCH (17:00)
[2019-05-04] MEDS ORDERED: Medication Not On Formulary EA (Omega-3 Fatty Acids/Fish Oil (Fish Oil 1,000 Mg Capsule) GT SCH (17:00)
[2019-05-04] MEDS ORDERED: LABETALOL HCL 200 MG TABLET GT SCH (17:00)
[2019-05-04] MEDS ORDERED: FEE PK DOSING 1 MIN EA MC ONE (17:16)
[2019-05-04 17:30] VITALS: BP 147/80
--- NOTE | 2019-05-04 17:30 | NUR ---
RN NOTE PTAOX1, RESPONSED TO NAME, NON-VERBAL, ABLE TO MOVE LEFT ARM AND HAND, WITH PURPOSEFUL MOVEMENTS, ARRIVED FROM ER ON ROOM AIR, TRACH IN PLACE, PORTEX 7, COUGHS AND VOMITTEDX1, SUCTIONED, GTUBE CLAMPED AND CLOGGED, CLEARED, FLUSHED, IV IN L HAND 20 G, PATENT, INTACT. PT PLACED ON AIR POLLUTION ENGINEER, SR-ST 104, VS STABLE. PICTURES TO BE TAKEN, CALL LIGHT WITHIN REACH, SAFETY MEASURES IN PLACE, KEPT CLEAN AN DRY, WILL FOLLOW THROUGH WITH ADMITTING ORDERS. Addendum: 05/04/19 at 2018 by TAYLER ARNOLD RN IVF NS 2000ML INFUSING AT THIS TIME.
[2019-05-04] MEDS: ONDANSETRON HCL/PF 4 MG/2 ML VIAL IVP PRN (18:14)
[2019-05-04] MEDS: BLOOD SUGAR DIAGNOSTIC 1 EACH STRIP VI SCH ×2 (18:17→21:12)
[2019-05-04] MEDS: ZOSYN IVPB 3.375 G in IV D5W 50ml IV SCH ×2 (18:31→23:32)
[2019-05-04] MEDS: LABETALOL HCL (100MG) 100 MG TABLET GT SCH (18:53)
[2019-05-04] MEDS: IPRATROPIUM NEB FS 0.5 MG/2.5 ML AMPUL.NEB NEB SCH (19:03)
[2019-05-04] MEDS: ALBUTEROL FS 2.5 MG/3 ML VIAL.NEB NEB SCH (19:03)
[2019-05-04] MEDS: VANCOMYCIN 0.75 GM in IV D5W 250 ML IV SCH (19:15)
[2019-05-04] MEDS ORDERED: Medication Not On Formulary EA (Ipratropium/Albuterol Sulfate (Duoneb 2.5-0.5 Mg/3 Ml So IH SCH (19:30)
[2019-05-04 20:00] VITALS: BP 131/87
[2019-05-04] MEDS: IV NS 0.9% 1,000 ML IV PRN (20:26)
[2019-05-04] MEDS: NEPRO 1,000 ML BOTTLE GT PRN (20:48)
[2019-05-04] MEDS: GEMFIBROZIL 600 MG TABLET GT SCH (21:12)
[2019-05-04] MEDS: HYDROCODONE/APAP 5/325MG 1 EACH TABLET PO PRN (21:12)
[2019-05-04] MEDS: CHLORHEXIDINE GLUCONATE 15 ML UDC MM SCH (21:12)
[2019-05-04] MEDS: INSULIN GLARGINE, 100 UNIT/ML CARTRIDGE SQ SCH (21:18)
[2019-05-05] VITALS: BP 144/92
[2019-05-05] MEDS: ALBUTEROL FS 2.5 MG/3 ML VIAL.NEB NEB SCH ×4 (01:47→19:12)
[2019-05-05] MEDS: IPRATROPIUM NEB FS 0.5 MG/2.5 ML AMPUL.NEB NEB SCH ×4 (01:47→19:12)
[2019-05-05] MEDS: HYDROCODONE/APAP 5/325MG 1 EACH TABLET PO PRN ×2 (02:03→06:03)
[2019-05-05 04:00] VITALS: BP 153/97
[2019-05-05] MEDS: ZOSYN IVPB 3.375 G in IV D5W 50ml IV SCH ×4 (05:08→23:45)
[2019-05-05] MEDS: VANCOMYCIN 0.75 GM in IV D5W 250 ML IV SCH ×2 (05:38→17:57)
[2019-05-05] MEDS ORDERED: PANTOPRAZOLE 40 MG TABLET.DR PO SCH (07:30)
--- NOTE | 2019-05-05 07:50 | NUR ---
RN NOTE: RECEIVED PATIENT IN BED, ASLEEP, ABLE TO SPONTANEOUSLY OPEN HIS EYES, NONVERBAL. RESPIRATION EVEN AND UNLABORED SATURATING 100% WITH FIO2 28% 5L/MIN COOL AEROSOL (T-PIECE). NO FACIAL GRIMACING NOTED. HOB ELEVATED AT ALL TIMES. (L) FOREARM IV SITE NOTED PATENT AND INTACT INFUSING NS @75ML/HR. GT FEEDING OF NEPHRO @50ML/HR, WITH NO RESIDUAL NOTED. AFEBRILE. SKIN WARM TO TOUCH. CONDOM CATHETER IN PLACED WITH GOOD AMOUNT OF YELLOW URINE DRAINING TO GRAVITY. BED ALARMED AND LOCKED AT ALL TIMES. CALL LIGHT WITHIN REACH. NEEDS ANTICIPATED.
[2019-05-05 08:00] VITALS: BP 150/84
[2019-05-05] MEDS: BLOOD SUGAR DIAGNOSTIC 1 EACH STRIP VI SCH (08:10)
[2019-05-05] MEDS ORDERED: DEXTROSE 50%-WATER 50 ML DISP.SYRIN IV PRN (08:30)
[2019-05-05] MEDS ORDERED: INSULIN REGULAR, HUMAN 100 UNIT/ML 3 ML VIAL SQ PRN (08:30)
[2019-05-05] MEDS: ASPIRIN 81 MG TAB.CHEW GT SCH (09:00)
[2019-05-05] MEDS ORDERED: PANTOPRAZOLE 40 MG/PACK PACK GT SCH (09:00)
--- NOTE | 2019-05-05 09:00 | NUR ---
RN NOTE: ASPIRIN WAS HELD DUE TO BLOOD TINGED TRACHEAL SECRETION NOTED.
[2019-05-05] MEDS: TERAZOSIN HCL 1 MG CAPSULE GT SCH (09:52)
[2019-05-05] MEDS: CHOLECALCIFEROL 1,000 UNIT TABLET (VIT D3) GT SCH (09:52)
[2019-05-05] MEDS: THIAMINE HCL 100 MG TABLET GT SCH (09:53)
[2019-05-05] MEDS: GEMFIBROZIL 600 MG TABLET GT SCH ×2 (09:53→21:13)
[2019-05-05] MEDS: FERROUS SULFATE UDC 300 MG/5 ML UDC GT SCH ×2 (09:54→16:52)
[2019-05-05] MEDS: CHLORHEXIDINE GLUCONATE 15 ML UDC MM SCH ×2 (09:54→21:15)
[2019-05-05] MEDS: POTASSIUM CHLORIDE 20 MEQ POWDER PACKET GT SCH (09:58)
[2019-05-05] MEDS: LABETALOL HCL (100MG) 100 MG TABLET GT SCH ×2 (09:59→16:52)
[2019-05-05] MEDS: AMLODIPINE BESYLATE 10 MG TABLET GT SCH (09:59)
[2019-05-05] MEDS ORDERED: ESOMEPRAZOLE MAGNESIUM 40 MG SUSPDR.PKT GT SCH (10:00)
[2019-05-05 10:08] LABS: BASOPHILS # (AUTO) 0.1 /CMM (0.0-0.2); BASOPHILS % (AUTO) 0.7 % (0.0-2.0); EOSINOPHILS % (AUTO) 4.9 % (0.0-6.0); HEMATOCRIT 37 % (39-51); HEMOGLOBIN 12.3 g/dL (13.5-17.5); LYMPHOCYTES # (AUTO) 1.1 /CMM (0.8-4.8); LYMPHOCYTES % (AUTO) 11.5 % (20.0-44.0); MEAN CORPUSCULAR HGB CONC 33 g/dl (31.0-36.0); MEAN CORPUSCULAR VOLUME 86 fL (80-96); MONOCYTES # (AUTO) 1.1 /CMM (0.1-1.30); MONOCYTES % (AUTO) 11.2 % (2.0-12.0); NEUTROPHILS # (AUTO) 6.9 /CMM (1.8-8.9); NEUTROPHILS % (AUTO) 71.7 % (43.0-81.0); PLATELET COUNT (AUTO) 448 /CMM (150-450); RED BLOOD CELL COUNT(AUTO) 4.28 MIL/uL (4.5-6.0); WHITE BLOOD COUNT (AUTO) 9.6 K/uL (4.3-11.0)
[2019-05-05 10:19] LABS: CALCIUM, SERUM 9.1 mg/dL (8.5-10.1); CREATININE 1.5 mg/dL (0.6-1.3); MAGNESIUM 2.2 mg/dL (1.8-2.4); PHOSPHORUS 3.5 mg/dL (2.5-4.9); POTASSIUM 3.6 mmol/L (3.5-5.1)
[2019-05-05] MEDS: ESOMEPRAZOLE MAGNESIUM 40 MG SUSPDR.PKT GT SCH (10:50)
[2019-05-05] MEDS: BLOOD SUGAR DIAGNOSTIC 1 EACH STRIP IN SCH ×3 (12:24→23:59)
[2019-05-05] MEDS: IV NS 0.9% 1,000 ML IV PRN (13:55)
[2019-05-05] MEDS: ONDANSETRON HCL/PF 4 MG/2 ML VIAL IVP PRN (14:13)
--- NOTE | 2019-05-05 15:15 | NUR ---
RN NOTE: MRSA NARES COLLECTED ON PATIENT'S (L) NARE AND SENT TO LAB. DATED, TIMED AND INITIALED.
[2019-05-05 16:00] VITALS: BP 129/82
[2019-05-05] MEDS: LACTOBACILLUS RHAMNOSUS GG 1 EACH CAP.SPRINK PO SCH (16:52)
[2019-05-05] MEDS: DOCUSATE SODIUM LIQ 100 MG/10 ML UDC GT SCH (16:52)
--- NOTE | 2019-05-05 19:20 | NUR ---
MS RN NOTE RECEIVED PT IN STABLE CONDITION, PT NOTED TO BE NON-VERBAL. NO SIGNS OF SOB OR DISTRESS, NO INDICATIONS OF PAIN, NO N/V NOTED. CONDOM CATH IN PLACE WITH ADEQUATE YELLOW URINE DRAINING. IV IN L FA IN PLACE WITH IVF FLUIDS INFUSING, TOLERATING WELL. ALL CURRENT NEEDS ATTENDED TO. BED LOW, LOCKED, UPPER RAILS UP, AND CALL LIGHT WITHIN REACH. WILL CONT. TO MONITOR.
--- NOTE | 2019-05-05 19:50 | NUR ---
RN NOTE: BEDSIDE REPORT WAS GIVEN TO PM SHIFT NURSE FOR CONTINUITY OF CARE. PATIENT HAD 1 TIME EPISODE OF VOMITING DURING THE SHIFT AND ZOFRAN PER MD ORDER WAS ADMINISTERED. CONDOM CATHETER REMAINED INTACT AND IN PLACED WITH YELLOW URINE DRAINAGE.
[2019-05-05 20:00] VITALS: BP 131/76
--- NOTE | 2019-05-05 21:00 | NUR ---
MS RN NOTE PT NOTED WITH R INNER THIGH REDNESS. PHOTO TAKEN AND PLACED IN CHART, CHARGE NURSE DELLA NOTIFIED, PER CHARGE NURSE, NO INCIDENT REPORT NEEDS TO BE DONE. WILL CONT. TO MONITOR.
[2019-05-05] MEDS: INSULIN GLARGINE, 100 UNIT/ML CARTRIDGE SQ SCH (21:16)
[2019-05-06] MEDS: ALBUTEROL FS 2.5 MG/3 ML VIAL.NEB NEB SCH ×3 (01:14→13:59)
[2019-05-06] MEDS: IPRATROPIUM NEB FS 0.5 MG/2.5 ML AMPUL.NEB NEB SCH ×3 (01:14→13:59)
[2019-05-06 04:00] VITALS: BP 131/85
[2019-05-06] MEDS: ZOSYN IVPB 3.375 G in IV D5W 50ml IV SCH ×2 (05:02→12:14)
[2019-05-06] MEDS: BLOOD SUGAR DIAGNOSTIC 1 EACH STRIP IN SCH ×2 (05:03→12:10)
[2019-05-06] MEDS: NEPRO 1,000 ML BOTTLE GT PRN (05:06)
[2019-05-06] MEDS: IV NS 0.9% 1,000 ML IV PRN (05:06)
[2019-05-06 05:41] LABS: CALCIUM, SERUM 9.1 mg/dL (8.5-10.1); CREATININE 1.5 mg/dL (0.6-1.3); POTASSIUM 3.8 mmol/L (3.5-5.1)
--- NOTE | 2019-05-06 05:49 | NUR ---
PATIENT RECEIVED ON 28% AEROSOL T-TUBE, TOLERATING WITH NO DISTRESS/SOB NOTED. SUCTIONED FOR MINIMAL, THICK, YELLOW SECRETIONS. GIVEN IN-LINE TREATMENTS WITH NO ADVERSE REACTIONS. AMBU BAG AT BEDSIDE. Addendum: 05/06/19 at 0550 by ANDREZ ZUNIGA RT Amended: Links added.
[2019-05-06] MEDS: VANCOMYCIN 0.75 GM in IV D5W 250 ML IV SCH (06:22)
--- NOTE | 2019-05-06 06:42 | NUR ---
MS RN NOTE PT REMAINS IN STABLE CONDITION, PT NOTED ALERT BUT NON-VERBAL. NO SIGNS OF SOB OR DISTRESS, NO INDICATIONS OF PAIN, NO N/V NOTED. CONDOM CATH IN PLACE WITH ADEQUATE YELLOW URINE DRAINING. GTUBE FEEDING IN PLACE WITH MINIMAL RESIDUE NOTED, FEEDING INFUSING, TOLERATING WELL. IV IN L FA IN PLACE WITH IVF FLUIDS INFUSING, TOLERATING WELL. ALL CURRENT NEEDS ATTENDED TO. BED LOW, LOCKED, UPPER RAILS UP, PT REPOSITIONED PER PROTOCOL AND CALL LIGHT WITHIN REACH. WILL CONT. TO MONITOR AND ENDORSE TO NEXT SHIFT FOR HAMILTON.
[2019-05-06 07:45] LABS: BASOPHILS # (AUTO) 0.1 /CMM (0.0-0.2); BASOPHILS % (AUTO) 0.8 % (0.0-2.0); EOSINOPHILS % (AUTO) 8.8 % (0.0-6.0); HEMATOCRIT 38 % (39-51); HEMOGLOBIN 12.3 g/dL (13.5-17.5); LYMPHOCYTES # (AUTO) 1.1 /CMM (0.8-4.8); LYMPHOCYTES % (AUTO) 10.6 % (20.0-44.0); MEAN CORPUSCULAR HGB CONC 32 g/dl (31.0-36.0); MEAN CORPUSCULAR VOLUME 88 fL (80-96); MONOCYTES % (AUTO) 9.7 % (2.0-12.0); NEUTROPHILS # (AUTO) 7.4 /CMM (1.8-8.9); NEUTROPHILS % (AUTO) 70.1 % (43.0-81.0); PLATELET COUNT (AUTO) 410 /CMM (150-450); RED BLOOD CELL COUNT(AUTO) 4.34 MIL/uL (4.5-6.0); WHITE BLOOD COUNT (AUTO) 10.6 K/uL (4.3-11.0)
--- NOTE | 2019-05-06 07:48 | NUR ---
MS RN NOTES RECIVED PT IN BED ALERT AWAKEN. NONVERBAL. NO SIGNS OF DISCOMFORT AND SOB NOTED AT THIS TIME. NO RESIDUAL NOTED FROM GT. LFA IV LINE PATENT AND NS IS RUNNING @75 ML/H. BED AT THE LOWEST POSITION AND LUCKED. SIDE RAILS UP CALL LIGHT WITHIN REACH. REPOSITIONED THE PT. WILL CONTINUE TO MONITOR.
[2019-05-06 08:00] VITALS: BP 120/68
[2019-05-06] MEDS ORDERED: AMANTADINE HCL 100 MG CAPSULE GT SCH (09:00)
[2019-05-06] MEDS: FERROUS SULFATE UDC 300 MG/5 ML UDC GT SCH (09:23)
[2019-05-06] MEDS: POTASSIUM CHLORIDE 20 MEQ POWDER PACKET GT SCH (09:23)
[2019-05-06] MEDS: THIAMINE HCL 100 MG TABLET GT SCH (09:23)
[2019-05-06] MEDS: GEMFIBROZIL 600 MG TABLET GT SCH (09:24)
[2019-05-06] MEDS: LACTOBACILLUS RHAMNOSUS GG 1 EACH CAP.SPRINK PO SCH (09:24)
[2019-05-06] MEDS: ASPIRIN 81 MG TAB.CHEW GT SCH (09:24)
[2019-05-06] MEDS: AMLODIPINE BESYLATE 10 MG TABLET GT SCH (09:24)
[2019-05-06] MEDS: CHOLECALCIFEROL 1,000 UNIT TABLET (VIT D3) GT SCH (09:24)
[2019-05-06] MEDS: LABETALOL HCL (100MG) 100 MG TABLET GT SCH (09:25)
[2019-05-06] MEDS: CHLORHEXIDINE GLUCONATE 15 ML UDC MM SCH (09:26)
[2019-05-06] MEDS: TERAZOSIN HCL 1 MG CAPSULE GT SCH (09:27)
[2019-05-06] MEDS: ESOMEPRAZOLE MAGNESIUM 40 MG SUSPDR.PKT GT SCH (09:27)
[2019-05-06] MEDS ORDERED: PIPE3.379 IV (12:46)
[2019-05-06] MEDS: ACETYLCYSTEINE 10% SOLN 400 MG/4 ML VIAL NEB SCH ×2 (13:59→16:03)
[2019-05-06 16:00] VITALS: BP 115/72
[2019-05-07] MEDS ORDERED: VANCOMYCIN 0.75 GM in IV D5W 250 ML IV SCH ×2
[2019-05-07] MEDS ORDERED: EPOETIN ALFA (10,000 UNIT) 10,000 UNIT/ML VIAL SQ SCH (17:00)
== END 2019-05-06 17:15 | DRG 137 ==
LOC: ER 13:36 → TELE-TD 16:47 → MEDSG1 05-05 09:17
PROVIDERS: ADMIT Internal Medicine; ATTEND Internal Medicine
DX: J69.0 Pneumonitis due to inhalation of food and vomit (principal); J96.21 Acute and chronic respiratory failure with hypoxia; N17.0 Acute kidney failure with tubular necrosis; E43 Unspecified severe protein-calorie malnutrition; G93.41 Metabolic encephalopathy; R53.2 Functional quadriplegia; Z93.0 Tracheostomy status; D68.69 Other thrombophilia; E11.22 Type 2 diabetes mellitus with diabetic chronic kidney disease; T17.990A Other foreign object in respiratory tract, part unspecified in causing asphyxiation, initial encounter; E87.1 Hypo-osmolality and hyponatremia; Z93.1 Gastrostomy status; E88.09 Other disorders of plasma-protein metabolism, not elsewhere classified; D47.3 Essential (hemorrhagic) thrombocythemia; G40.909 Epilepsy, unspecified, not intractable, without status epilepticus; E86.1 Hypovolemia; R13.10 Dysphagia, unspecified; Z79.4 Long term (current) use of insulin; X58.XXXA Exposure to other specified factors, initial encounter; Y93.9 Activity, unspecified; Y92.129 Unspecified place in nursing home as the place of occurrence of the external cause; K22.70 Barrett's esophagus without dysplasia; I12.9 Hypertensive chronic kidney disease with stage 1 through stage 4 chronic kidney disease, or unspecified chronic kidney disease; N18.9 Chronic kidney disease, unspecified; Z68.24 Body mass index [BMI] 24.0-24.9, adult; Z98.890 Other specified postprocedural states
CPT/HCPCS: 31720; 36415; 71045-TC; 80048-TC; 80076-TC; 80202-TC; 82962-TC; 83605-TC; 83735-TC; 83880; 84100-TC; 84484-TC; 85025-TC; 85730-TC; 87040-TC; 87081-TC; 94640-TC; 94664-TC; 94760-TC; A4349; A4623; A6403; G0378; J1815; J1956; J2405; J2543; J3370; J3490; J7030; J7040; J7060

== ENCOUNTER 2020-08-08 23:52 | Inpatient (IN) | payer MEDICAID ==
[~2020-08-08] VITALS: Ht 162.6 cm; Wt 64.4 kg
[~2020-08-08 23:52] MED LIST changes: +AMLO-213 GT; -AMLO10TA7 GT; -CALC-20 GT; -ESOM40VI IV; +FERR300L GT; -GEMF600T5 GT; +GEMF600T90 GT; -MERO500V3 IV; +OMEP20CA15 GT; +PIPE3.379 IV; -VANC750P13 IV
[2020-08-09] MEDS ORDERED: ACETAMINOPHEN 650 MG/SUPP.RECT RC ONE ×2 (00:30→00:32)
[2020-08-09 00:33] LABS: ABG BASE EXCESS -7.3 mmol/L; ABG OXYGEN SATURATION 89.3 % (92.0-98.5); ABG PCO2 22.9 mmHg (35.0-45.0); ABG PH 7.434 (7.350-7.450); ABG PO2 57.2 mmHg (75.0-100.0); AaDO2 345.4 mmHg; COHb 0.2 % (0.5-1.5); MetHb 0.4 % (0.0-1.5); O2Hb 88.8 % (94.0-97.0); SITE, ABG Left Radial; VENT MODE, BG 10 L T-Piece
[2020-08-09] MEDS ORDERED: LIDOCAINE 2% JEL UROJET 10 ML MM ONE (00:33)
[2020-08-09 00:35] LABS: BASOPHILS # (AUTO) 0.1 /CMM (0.0-0.2); BASOPHILS % (AUTO) 0.3 % (0.0-2.0); HEMATOCRIT 40 % (39-51); HEMOGLOBIN 12.4 g/dL (13.5-17.5); LYMPHOCYTES % (AUTO) 5.9 % (20.0-44.0); MEAN CORPUSCULAR HGB CONC 31 g/dl (31.0-36.0); MEAN CORPUSCULAR VOLUME 87 fL (80-96); MONOCYTES # (AUTO) 1.2 /CMM (0.1-1.30); NEUTROPHILS # (AUTO) 14.9 /CMM (1.8-8.9); NEUTROPHILS % (AUTO) 86.8 % (43.0-81.0); PLATELET COUNT (AUTO) 421 /CMM (150-450); RED BLOOD CELL COUNT(AUTO) 4.56 MIL/uL (4.5-6.0); WHITE BLOOD COUNT (AUTO) 17.2 K/uL (4.3-11.0)
--- NOTE | 2020-08-09 00:51 | NUR ---
MIHIR 85 FROM [facility] FOR LOW O2 SAT. TESTED + FOR COVID 07/27 TO ER BED 5. LINE STARTED, LABS DRAWN. KNUTSON IN PLACE, URINE SENT TO LAB
[2020-08-09] MEDS ORDERED: CEFEPIME 1 GM in IV D5W 50 ML IV ONE (01:00)
[2020-08-09] MEDS ORDERED: ASPIRIN 300 MG/SUPP.RECT RC ONE ×2 (01:00→01:09)
[2020-08-09] MEDS ORDERED: AZITHROMYCIN 500 MG in IV D5W 250 ML IV ONE (01:00)
[2020-08-09 01:01] LABS: ALANINE AMINOTRANSFERASE 359 U/L (12-78); ALBUMIN 2.6 g/dL (3.4-5.0); ALKALINE PHOSPHATASE 438 U/L (46-116); ASPARTATE AMINOTRANSFERASE 387 U/L (15-37); B-TYPE NATRIURETIC PEPTIDE 167 PG/ML (0-125); BILIRUBIN,DIRECT 0.4 mg/dL (0.0-0.2); BILIRUBIN,TOTAL 0.6 mg/dL (0.2-1.0); CALCIUM, SERUM 9.3 mg/dL (8.5-10.1); CARBON DIOXIDE 19 mmol/L (21-32); CHLORIDE 124 mmol/L (98-107); CREATININE 2.1 mg/dL (0.6-1.3); GLUCOSE 154 mg/dL (74-106); POTASSIUM 4.8 mmol/L (3.5-5.1); UREA NITROGEN, BLOOD 55 mg/dL (7-18)
[2020-08-09] MEDS ORDERED: ENOX40DI SQ (01:03)
[2020-08-09] MEDS ORDERED: CHOL400T11 GT (01:03)
[2020-08-09 01:04] LABS: SODIUM SERUM 160 mmol/L (136-145)
[2020-08-09] MEDS ORDERED: CEFEPIME 1 GM VIAL ONE (01:09)
[2020-08-09] MEDS ORDERED: AZITHROMYCIN 500 MG VIAL ONE (01:09)
[2020-08-09 01:17] LABS: BILIRUBIN,URINE NEGATIVE (NEGATIVE); COLOR,URINE YELLOW (YELLOW); LEUKOCYTE ESTERASE ,URINE NEGATIVE (NEGATIVE); NITRITE, URINE POSITIVE (NEGATIVE); PROTEIN,URINE 30 mg/dl (NEGATIVE); UGLUCOSE NEGATIVE (NEGATIVE); UROBILINOGEN,URINE 0.2 EU/dL (0.2)
[2020-08-09 01:25] LABS: BACTERIA,URINE 2+ /HPF (None Seen); SQUAMOUS EPITHELIAL CELL,UR Few /HPF (None Seen); URINE AMORPHOUS URATE Moderate /HPF (None Seen)
[2020-08-09] MEDS ORDERED: ACETAMINOPHEN 325 MG TABLET PO PRN (01:30)
[2020-08-09] MEDS ORDERED: DEXTROSE 50%-WATER 50 ML DISP.SYRIN IV PRN (01:30)
[2020-08-09] MEDS ORDERED: ALBUTEROL SULFATE 8 GM HFA.AER.AD IH PRN (01:30)
--- NOTE | 2020-08-09 03:39 | NUR ---
pt remains in bed, sleeping vss on t peice 12L O2 in no apparent pain or discomfort at the moment
[2020-08-09] MEDS: BLOOD SUGAR DIAGNOSTIC 1 EACH STRIP IN SCH ×4 (06:17→23:59)
--- NOTE | 2020-08-09 06:19 | NUR ---
insulin dose held, pt yet to have gtube feeding started
--- NOTE | 2020-08-09 08:00 | NUR ---
PATIENT ON 15LPM VIA T-PIECE WITH SPO2 OF 97%. NO DISTRESS NOTED. PATIENT TURNED AND REPOSITIONED. KEPT COMFORTABLE.
[2020-08-09] MEDS ORDERED: HEPARIN SODIUM, PORCINE 5000 UNITS/1 ML VIAL ONE ×2 (08:03→21:44)
[2020-08-09] MEDS ORDERED: DEXAMETHASONE SOD PHOSPHATE 10 MG/ML VIAL ONE (08:03)
[2020-08-09] MEDS: DEXAMETHASONE SOD PHOSPHATE 10 MG/ML VIAL IV SCH (08:38)
[2020-08-09] MEDS: HEPARIN SODIUM, PORCINE 5000 UNITS/1 ML VIAL SQ SCH ×2 (08:38→21:49)
[2020-08-09] MEDS ORDERED: DEXA4TAB GT (09:00)
[2020-08-09] MEDS ORDERED: METO-295 GT (09:00)
[2020-08-09] MEDS ORDERED: CEFEPIME 1 GM in IV D5W 50 ML IV SCH (09:00)
[2020-08-09] MEDS ORDERED: ALBU6.7H9 IH ×2 (09:00)
[2020-08-09 11:57] LABS: BASOPHILS # (AUTO) 0.1 /CMM (0.0-0.2); BASOPHILS % (AUTO) 0.5 % (0.0-2.0); HEMATOCRIT 38 % (39-51); HEMOGLOBIN 12.1 g/dL (13.5-17.5); LYMPHOCYTES # (AUTO) 0.7 /CMM (0.8-4.8); LYMPHOCYTES % (AUTO) 5.4 % (20.0-44.0); MEAN CORPUSCULAR HGB CONC 32 g/dl (31.0-36.0); MEAN CORPUSCULAR VOLUME 89 fL (80-96); MONOCYTES # (AUTO) 0.7 /CMM (0.1-1.30); MONOCYTES % (AUTO) 5.4 % (2.0-12.0); NEUTROPHILS # (AUTO) 12.2 /CMM (1.8-8.9); NEUTROPHILS % (AUTO) 88.7 % (43.0-81.0); PLATELET COUNT (AUTO) 359 /CMM (150-450); WHITE BLOOD COUNT (AUTO) 13.7 K/uL (4.3-11.0)
[2020-08-09] MEDS: IV D5W 1,000 ML IV PRN (12:00)
[2020-08-09] MEDS: CEFEPIME 2 GM in IV D5W 100 ML IV SCH (12:06)
--- NOTE | 2020-08-09 12:07 | NUR ---
INSULIN DOSE HELD, PATIENT HAS NO G-TUBE FEEDING ORDER AT THIS TIME. WAITING FOR MD.
[2020-08-09 16:46] LABS: CREATININE, URINE 89.9 MG/DL (30.0-125.0); URINE TOTAL PROTEIN 117.2 mg/dL (0-11.9)
--- NOTE | 2020-08-09 16:52 | NUR ---
PATIENT TURNED AND REPOSITIONED, KEPT COMFOTABLE. NO DISTRESS NOTED. CONTINUES ON 15LPM VIA TPIECE AND TOLERATING WELL.
--- NOTE | 2020-08-09 17:06 | NUR ---
PATIENT NOTED TO HAVE ELEVATED HR FROM 108-150S, DR. POMPA MADE AWARE WITH AN ORDER OF EKG. RT MADE AWARE
[2020-08-09] MEDS ORDERED: ALBUTEROL SULFATE INH 18 GM HFA.AER.AD IH SCH (18:00)
[2020-08-09] MEDS ORDERED: hydrALAZINE HCL 10 MG TABLET GT PRN (18:00)
[2020-08-09] MEDS ORDERED: ALBUTEROL SULFATE INH 18 GM HFA.AER.AD IH PRN (18:00)
[2020-08-09] MEDS ORDERED: METOCLOPRAMIDE HCL 10 MG TABLET GT PRN (18:00)
[2020-08-09] MEDS ORDERED: NA PHOS,M-B/NA PHOS,DI-BA 1 EA ENEMA RC PRN (18:00)
[2020-08-09] MEDS ORDERED: BISACODYL SUPP (10 MG) 10 MG/SUPP.RECT SUPP.RECT RC PRN (18:00)
[2020-08-09] MEDS ORDERED: MAGNESIUM HYDROXIDE 30 ML UDC GT PRN (18:00)
[2020-08-09] MEDS ORDERED: THIAMINE HCL 100 MG TABLET ONE (18:11)
[2020-08-09] MEDS ORDERED: INSULIN REGULAR, HUMAN 100 UNIT/ML 10 ML VIAL ONE (18:11)
[2020-08-09] MEDS: THIAMINE HCL 100 MG TABLET GT SCH (18:13)
--- NOTE | 2020-08-09 18:17 | NUR ---
HEART RATE IMPROVED. PATIENT RESTING, NO DISTRESS NOTED. TURNED AND REPOSITIONED, KEPT COMFORTABLE.
--- NOTE | 2020-08-09 18:20 | NUR ---
G-TUBE FEEDING ORDERED, AGREED BY DR. POMPA.
[2020-08-09] MEDS: NEPRO VAN 237 ML CAN GT SCH (18:22)
[2020-08-09] MEDS: INSULIN REGULAR, HUMAN 100 UNIT/ML 3 ML VIAL SQ PRN (18:23)
[2020-08-09] MEDS ORDERED: NEPRO VAN 237 ML CAN GT SCH (18:30)
[2020-08-09 19:07] LABS: ALBUMIN 2.4 g/dL (3.4-5.0); BILIRUBIN,DIRECT 0.3 mg/dL (0.0-0.2); BILIRUBIN,TOTAL 0.7 mg/dL (0.2-1.0); TOTAL PROTEIN, SERUM 8.9 g/dL (6.4-8.2)
[2020-08-09] MEDS: CHLORHEXIDINE GLUCONATE 15 ML UDC MM SCH (21:00)
[2020-08-09] MEDS ORDERED: Medication Not On Formulary EA (Omega-3 Fatty Acids/Fish Oil (Fish Oil 1,000 Mg Capsule) GT SCH (21:00)
[2020-08-09] MEDS: INSULIN GLARGINE, 100 UNIT/ML CARTRIDGE SQ SCH (22:31)
--- NOTE | 2020-08-09 22:49 | NUR ---
PT NOTED TO SAT 89%, REPOSITIONED, SAT 92-95%.
[2020-08-10] VITALS: BP 123/89
[2020-08-10] MEDS: CEFEPIME 2 GM in IV D5W 100 ML IV SCH ×3 (00:20→23:44)
[2020-08-10] MEDS: IV D5W 1,000 ML IV PRN (00:20)
--- NOTE | 2020-08-10 00:30 | NUR ---
PT SAT LOW 80'S. PT REPOSITIONED, RT CALLED.
--- NOTE | 2020-08-10 00:39 | NUR ---
PER ARYA Marie DNP, PT TO BE PLACED ON A VENT.
[2020-08-10] MEDS ORDERED: LORAZEPAM INJ 2 MG/ML VIAL ONE (01:20)
--- NOTE | 2020-08-10 01:34 | NUR ---
PT NOTED TO BE ADGITATED, PER ARYA DNP, ORDER ATIVAN 1MG IVP NOW.
--- NOTE | 2020-08-10 01:45 | NUR ---
RT pt placed on vent per md order. pt on 10L t-piece, saturation 76%. pt was repositioned and suctioned. vent settings: AC 20 500 100% +5 pt tachypnic on vent. saturation high 80s-low 90s. vent plugged in to red outlet. ambu bag at head of bed. no secretions suctioned via trach. will continue to monitor.
--- NOTE | 2020-08-10 01:50 | NUR ---
RT AT BEDSIDE, PT PLACED ON VENT. SETTING: AC 20 500 100% +5
[2020-08-10] MEDS ORDERED: LORAZEPAM INJ 2 MG/ML VIAL IV PRN (02:00)
[2020-08-10 04:41] LABS: BASOPHILS # (AUTO) 0.1 /CMM (0.0-0.2); BASOPHILS % (AUTO) 0.8 % (0.0-2.0); HEMATOCRIT 43 % (39-51); HEMOGLOBIN 13.8 g/dL (13.5-17.5); LYMPHOCYTES # (AUTO) 0.9 /CMM (0.8-4.8); MEAN CORPUSCULAR HGB CONC 32 g/dl (31.0-36.0); MEAN CORPUSCULAR VOLUME 89 fL (80-96); MONOCYTES # (AUTO) 0.8 /CMM (0.1-1.30); NEUTROPHILS # (AUTO) 15.1 /CMM (1.8-8.9); NEUTROPHILS % (AUTO) 89.2 % (43.0-81.0); PLATELET COUNT (AUTO) 400 /CMM (150-450); RED BLOOD CELL COUNT(AUTO) 4.84 MIL/uL (4.5-6.0); WHITE BLOOD COUNT (AUTO) 16.9 K/uL (4.3-11.0)
[2020-08-10 04:52] LABS: ALBUMIN 2.6 g/dL (3.4-5.0); BILIRUBIN,TOTAL 0.6 mg/dL (0.2-1.0); CALCIUM, SERUM 9.8 mg/dL (8.5-10.1); CREATININE 1.9 mg/dL (0.6-1.3); MAGNESIUM 3.1 mg/dL (1.8-2.4); PHOSPHORUS 5.2 mg/dL (2.5-4.9); POTASSIUM 4.6 mmol/L (3.5-5.1); TOTAL PROTEIN, SERUM 9.3 g/dL (6.4-8.2)
--- NOTE | 2020-08-10 05:55 | NUR ---
PT CLEANED AND REPOSITIONED.
[2020-08-10] MEDS: BLOOD SUGAR DIAGNOSTIC 1 EACH STRIP IN SCH ×4 (06:15→23:44)
--- NOTE | 2020-08-10 06:18 | NUR ---
IV LINE INFILTRATED, IV ESTABLISHED LH. Addendum: 08/10/20 at 0619 by BLADEOR Jaycee FIELD
--- NOTE | 2020-08-10 07:43 | NUR ---
REPORT GIVEN TO JASMIN MEDINA FOR HAMILTON
[2020-08-10] MEDS ORDERED: DEXAMETHASONE SOD PHOSPHATE 10 MG/ML VIAL ONE (08:20)
[2020-08-10] MEDS ORDERED: HEPARIN SODIUM, PORCINE 5000 UNITS/1 ML VIAL ONE (08:20)
[2020-08-10] MEDS ORDERED: LABETALOL HCL (100MG) 100 MG TABLET ONE (08:21)
[2020-08-10] MEDS ORDERED: AMLODIPINE BESYLATE 5 MG TABLET ONE (08:21)
[2020-08-10] MEDS ORDERED: ACETAMINOPHEN 325 MG TABLET ONE (08:21)
--- NOTE | 2020-08-10 08:34 | NUR ---
Pt in bed awake. breathing rapid and looks uncomfortable. pt care rendered. repositioned. pt's breathing got better. on vent. pt just had a trach changed. pt will be medicated for pain.
[2020-08-10] MEDS ORDERED: ENOXAPARIN SODIUM 40 MG/0.4 ML DISP.SYRIN SQ SCH (09:00)
[2020-08-10] MEDS ORDERED: CHOLECALCIFEROL (VITAMIN D 3) 400 UNIT TABLET GT SCH (09:00)
[2020-08-10] MEDS: ACETAMINOPHEN 650 MG/20.3 ML UDC GT PRN ×2 (09:06→23:59)
[2020-08-10] MEDS: CHOLECALCIFEROL 1,000 UNIT TABLET (VIT D3) GT SCH (09:53)
[2020-08-10] MEDS: AZITHROMYCIN 500 MG in IV D5W 250 ML IV SCH (09:53)
[2020-08-10] MEDS: DEXAMETHASONE SOD PHOSPHATE 10 MG/ML VIAL IV SCH (09:53)
[2020-08-10] MEDS: LABETALOL HCL (100MG) 100 MG TABLET GT SCH ×2 (09:53→16:32)
[2020-08-10] MEDS: CHLORHEXIDINE GLUCONATE 15 ML UDC MM SCH ×2 (09:54→21:24)
[2020-08-10] MEDS: HEPARIN SODIUM, PORCINE 5000 UNITS/1 ML VIAL SQ SCH ×2 (09:54→21:23)
--- NOTE | 2020-08-10 09:56 | NUR ---
STANLEY AND VERA Norman HELD FOR THE TIME BEING D/T WAS JUST GIVEN LABETALOL 200MG W/ BP OF 113/83 AND HR OF 143.
--- NOTE | 2020-08-10 10:12 | NUR ---
LAB CALLED PT IS DAISY +
[2020-08-10 11:06] LABS: ABG BASE EXCESS -10.5 mmol/L; ABG OXYGEN SATURATION 96.4 % (92.0-98.5); ABG PCO2 25.6 mmHg (35.0-45.0); ABG PH 7.344 (7.350-7.450); ABG PO2 93.5 mmHg (75.0-100.0); COHb 0.3 % (0.5-1.5); MetHb 0.4 % (0.0-1.5); O2Hb 95.7 % (94.0-97.0); PEEP,BG 5 cm H2O; SITE, ABG Left Radial; VT, ABG 500 mL
--- NOTE | 2020-08-10 11:30 | NUR ---
URINE OUTPUT FROM URINE BAG NOTED @ 1150ML
[2020-08-10] MEDS: INSULIN REGULAR, HUMAN 100 UNIT/ML 3 ML VIAL SQ PRN ×3 (12:42→23:46)
--- NOTE | 2020-08-10 13:07 | NUR ---
DR. POMPA NOTIFIED THAT AMLODIPINE 10MG AND HYTRIN 1GM STILL NOT GIVEN BECAUSE PT'S BP WAS IN BORDERLINE @ 112/73. EARLIER LABETALOL WAS GIVEN D/T HR WAS IN THE 140s, NOW HR IS IN THE 90s. ORDERED TO HOLD AMLODIPINE AND HYTRIN FOR TODAY. BP MEDS PARAMETER IS TO BE HELPD IF SBP IS <100. ORDERS NOTED AND CARRIED OUT.
[2020-08-10] MEDS: TERAZOSIN HCL 1 MG CAPSULE GT SCH (13:10)
[2020-08-10] MEDS: AMLODIPINE BESYLATE 10 MG TABLET GT SCH (13:11)
--- NOTE | 2020-08-10 14:18 | NUR ---
room [id number]
--- NOTE | 2020-08-10 15:18 | NUR ---
REPORT GIVEN TO ADAM OVALLE FOR HAMILTON
--- NOTE | 2020-08-10 15:35 | NUR ---
PT TRABNSPORTED TO UNIT ON [facility] WITH EMT, RT AND RN AT BEDSIDE. NAD NOTED DURING TRANSPORT.
[2020-08-10 16:00] VITALS: BP 90/58
--- NOTE | 2020-08-10 16:10 | NUR ---
RECEIVED REPORT FROM ADAM CASTELLANOS, FROM ER.
--- NOTE | 2020-08-10 16:15 | NUR ---
CIVIL CLERK NOTE RECEIVED PATIENT AOX1 NONVERBAL. PATIENT IS ON A TRACH/VENT. VENT SETTINGS ARE AC SO, FIO2 80% AND PEEP 5. MONITOR NOTES O2 AT 90%. PATIENTS RIGHT ARM IS CONTRACTED TO CHEST AND HAS BILATERAL BENDING AT THE KNEES. PATIENTS G TUBE IS INTACT AND FLUSHED WITH NO RESISTANCE. TRACHEOSTOMY DRESSING IS NON SOILED. PATIENT'S SKIN HAS REDNESS BEHIND HEELS. RHAND #22 GAUGE IS PATENT, INTACT, AND HAS NO SIGNS OF INFILTRATION. BED IS LOCKED IN THE LOWEST POSITION, 3 SIDE RAILS ARE RAISED, CALL SANTILLAN WITHIN REACH, AND ALL HOSPITAL SAFETY PRECAUTIONS ARE IN PLACE. WILL CONTINUE TO MONITOR THROUGHOUT SHIFT.
[2020-08-10] MEDS: THIAMINE HCL 100 MG TABLET GT SCH (18:03)
[2020-08-10] MEDS: DOCUSATE SODIUM LIQ 100 MG/10 ML UDC GT SCH (18:03)
--- NOTE | 2020-08-10 18:43 | NUR ---
CLOSING RN NOTE PATIENT IS IN BED WITH HOB RAISED TO SEMI PABLO'S POSITION. PATIENT IS AOX1. TRACHEOSTOMY IS IN PLACE AND CONNECTED TO VENT VIA T TUBE WITH SETTINGS AC 20, O2 80%, AND PEEP 5. RHAND #22 GAUGE IS INTACT, PATENT, AND HAS NO SIGNS OF INFILTRATION. PATIENT HAS SKIN PROTECTION PADS ON BOTH HEELS. G TUBE IS IN PLACE AND FLUSHES WITH MINIMAL RESISTANCE. BED IS LOCKED IN THE LOWEST POSITION, CALL SANTILLAN WITHIN REACH, THREE GUARD RAILS RAISED, AND ALL HOSPITAL SAFETY PRECAUTIONS ARE BEING FOLLOWED. WILL ENDORSE TO CONCRETE JOURNEYMAN NURSE.
[2020-08-10 20:00] VITALS: BP 111/78
--- NOTE | 2020-08-10 20:35 | NUR ---
RN NOTE PATIENT IN BED A/OX1. OPENS EYES. HOB RAISED TO SEMI PABLO'S POSITION. [facility], TOLERATING WELL. NO S/S OF ANY DISCOMFORT. WITH RIGHT HAND#22 WITH D5W @ 75ML/HR RUNNING. G TUBE IN PLACE, PLACEMENT CHECKED AND VERIFIED THROUGH AUSCULTATION, RUNING NEPRO @ 45ML/HR. BED LOCKED AND IN LOWEST POSITION. SIDE RAILS UP X2. SAFETY MEASURES IMPLEMENTED. CALL LIGHT WITHIN REACH. WILL CONTINUE TO MONITOR.
[2020-08-10] MEDS: INSULIN GLARGINE, 100 UNIT/ML CARTRIDGE SQ SCH (21:29)
[2020-08-10] MEDS: NEPRO VAN 237 ML CAN GT SCH (23:20)
[2020-08-11] VITALS (14 sets, daily range): BP systolic 89–149; BP diastolic 45–89
--- NOTE | 2020-08-11 04:50 | NUR ---
PATIENT ANXIOUS ON VENT, O2 SAT @ 88% AT THIS TIME, RESTLESS, AND SCRATCHING FACE. INFORMED ARYA, WITH NEW ORDER FOR ATIVAN 1MG IVP Q8HRS PRN. NOTED AND CARRIED OUT.
[2020-08-11] MEDS ORDERED: LORAZEPAM INJ 2 MG/ML VIAL IVP PRN (05:00)
--- NOTE | 2020-08-11 05:44 | NUR ---
ATIVAN 1MG IVP ADMINISTERED ORDERED. WILL CONTINUE TO MONITOR.
[2020-08-11] MEDS: BLOOD SUGAR DIAGNOSTIC 1 EACH STRIP IN SCH ×3 (05:45→17:57)
[2020-08-11] MEDS: INSULIN REGULAR, HUMAN 100 UNIT/ML 3 ML VIAL SQ PRN ×3 (05:54→17:43)
--- NOTE | 2020-08-11 06:00 | NUR ---
PATIENT RESTING AT THIS TIME WITH HOB ELEVATED. ATIVAN EFFECTIVE, O2 SAT 94% ON MECH VENT. WILL CONTINUE TO MONITOR.
[2020-08-11] MEDS: IV D5W 1,000 ML IV PRN (06:50)
[2020-08-11 07:33] LABS: BASOPHILS % (AUTO) 0.1 % (0.0-2.0); EOSINOPHILS % (AUTO) 0.6 % (0.0-6.0); HEMATOCRIT 37 % (39-51); HEMOGLOBIN 11.7 g/dL (13.5-17.5); LYMPHOCYTES # (AUTO) 0.4 /CMM (0.8-4.8); LYMPHOCYTES % (AUTO) 2.2 % (20.0-44.0); MEAN CORPUSCULAR HGB CONC 32 g/dl (31.0-36.0); MEAN CORPUSCULAR VOLUME 89 fL (80-96); MONOCYTES # (AUTO) 0.4 /CMM (0.1-1.30); MONOCYTES % (AUTO) 2.8 % (2.0-12.0); NEUTROPHILS # (AUTO) 15.1 /CMM (1.8-8.9); NEUTROPHILS % (AUTO) 94.3 % (43.0-81.0); PLATELET COUNT (AUTO) 396 /CMM (150-450); RED BLOOD CELL COUNT(AUTO) 4.17 MIL/uL (4.5-6.0)
[2020-08-11 07:37] LABS: ALBUMIN 2.2 g/dL (3.4-5.0); BILIRUBIN,DIRECT 0.3 mg/dL (0.0-0.2); BILIRUBIN,TOTAL 0.5 mg/dL (0.2-1.0); CALCIUM, SERUM 8.9 mg/dL (8.5-10.1); CREATININE 2.6 mg/dL (0.6-1.3); PHOSPHORUS 6.5 mg/dL (2.5-4.9); POTASSIUM 4.2 mmol/L (3.5-5.1); TOTAL PROTEIN, SERUM 8.1 g/dL (6.4-8.2)
[2020-08-11 08:08] LABS: ABG BASE EXCESS -10.5 mmol/L; ABG OXYGEN SATURATION 93.1 % (92.0-98.5); ABG PCO2 34.4 mmHg (35.0-45.0); ABG PH 7.269 (7.350-7.450); ABG PO2 73.4 mmHg (75.0-100.0); AaDO2 352.6 mmHg; COHb 0.2 % (0.5-1.5); MetHb 0.1 % (0.0-1.5); O2Hb 92.8 % (94.0-97.0); SITE, ABG Left Radial; VENT MODE, BG AC20 500 65% +8
--- NOTE | 2020-08-11 08:14 | NUR ---
RN NOTE PATIENT IN BED A/OX1. OPENS EYES. HOB RAISED TO SEMI PABLO'S POSITION. [facility], TOLERATING WELL. NO S/S OF ANY DISCOMFORT. WITH LEFT FOREARM #22 WITH D5W @ 75ML/HR RUNNING. GTUBE PATENT AND INTACT, RUNNING NEPRO @ 45ML/HR. BED LOCKED AND IN LOWEST POSITION. SIDE RAILS UP X2. SAFETY MEASURES IMPLEMENTED. CALL LIGHT WITHIN REACH. ENDORSED TO ONCOMING SHIFT.
--- NOTE | 2020-08-11 08:30 | NUR ---
RN OPENING NOTE PATIENT RESTING IN BED AT THIS TIME. A&O X 1. OPENS EYES TO TOUCH OR NAME. [facility]IN[facility] - TOLERATING WELL. NO S/S OF RESPIRATORY DISTRESS. GTUBE PATENT WITH NO RESIDUAL THIS MORNING. NO S/S OF PAIN NOTED. WILL CONTINUE TO MONITOR.
[2020-08-11] MEDS: LABETALOL HCL (100MG) 100 MG TABLET GT SCH ×2 (09:05→16:55)
[2020-08-11] MEDS: TERAZOSIN HCL 1 MG CAPSULE GT SCH (09:06)
[2020-08-11] MEDS: AMLODIPINE BESYLATE 10 MG TABLET GT SCH (09:06)
[2020-08-11] MEDS: CHOLECALCIFEROL 1,000 UNIT TABLET (VIT D3) GT SCH (09:06)
[2020-08-11] MEDS: CHLORHEXIDINE GLUCONATE 15 ML UDC MM SCH ×2 (09:12→20:41)
[2020-08-11] MEDS: DEXAMETHASONE SOD PHOSPHATE 10 MG/ML VIAL IV SCH (09:12)
[2020-08-11] MEDS: HEPARIN SODIUM, PORCINE 5000 UNITS/1 ML VIAL SQ SCH ×2 (09:13→21:15)
[2020-08-11] MEDS: AZITHROMYCIN 500 MG in IV D5W 250 ML IV SCH (09:21)
--- NOTE | 2020-08-11 10:22 | NUR ---
RN NOTES FIO2 CHANGED TO 80%, TRACH CARE PROVIDED, SUCTIONED SECRETIOONS NEEDED, WILL CONTINUE TO MONITOR.
[2020-08-11] MEDS: LORAZEPAM INJ 2 MG/ML VIAL IV PRN (11:09)
--- NOTE | 2020-08-11 11:21 | NUR ---
RN NOTES REPORT GIVEN TO DANILO MEDINA FOR CONTINUITY OF CARE.
--- NOTE | 2020-08-11 11:30 | NUR ---
ICU OVER FLOW NOTE PATIENT IN BED OPEN BOTH YES BUT NOT RESPONSE TO VERBAL COMMAND , ON TEL MONITOR ST 115 HR AT THIS TIME, WITH KNUTSON CATH TO GRAVITY WITH YELLOW COLOR URINE , ON G TUBE FEEDING KEEP HOB ELEVATED AT ALL TIME, LT GA HL INTACT AND ON IVF ORDERED. BED IN LOWEST AND LOCKED POSITION
[2020-08-11] MEDS: CEFEPIME 2 GM in IV D5W 100 ML IV SCH ×2 (11:53→19:35)
[2020-08-11] MEDS ORDERED: PROPOFOL 100 ML IV PRN (13:30)
--- NOTE | 2020-08-11 13:47 | NUR ---
NANNETTE MEDINA NOTE PER DR SHANNA COYLE TO START SIM CROWE ORDER PER HOSPITAL PROTOCOL RR 37-40 TACHYPNEIC Addendum: 08/11/20 at 1350 by DANILO ALVARADO RN OK TO HAVE PICC LINE PER MALCOLM REED RN SUPERVISOR STONE , EMERGENCY CONSENT DONE BY LESLEY MEDINA
[2020-08-11] MEDS: PROPOFOL 10MG/ML 50ML 50 ML IV PRN ×3 (13:58→21:31)
--- NOTE | 2020-08-11 14:11 | NUR ---
ICU OVER FLOW RN NOTE PROPOFOL DRIP STARTED PER HOSPITAL PROTOCOL
[2020-08-11] MEDS: VANCOMYCIN 0.75 GM in IV D5W 250 ML IV SCH (15:44)
[2020-08-11] MEDS ORDERED: ZOSYN IVPB 2.25 G in IV D5W 50ml IV SCH (16:00)
[2020-08-11] MEDS: DOCUSATE SODIUM LIQ 100 MG/10 ML UDC GT SCH (16:55)
[2020-08-11] MEDS: THIAMINE HCL 100 MG TABLET GT SCH (17:23)
[2020-08-11] MEDS: EPOETIN ALFA (10,000 UNIT) 10,000 UNIT/ML VIAL SQ SCH (18:00)
[2020-08-11] MEDS ORDERED: NOREPINEPHRINE 8 MG in IV NS 0.9% 242 ML IV PRN (18:30)
--- NOTE | 2020-08-11 18:32 | NUR ---
icu overflow rn note on propofol drip as ordered at 30 mcgkg\min , and ivf as ordered keep clean dry, on vent setting as ordered ,with g tube feeding as ordered will cont to monitor
[2020-08-11] MEDS: NEPRO VAN 237 ML CAN GT SCH (18:51)
--- NOTE | 2020-08-11 19:30 | NUR ---
RECEIVED PT ON BED SEDATED ON TRACH VENT SETTING PER MD, SPO2 98% TELE MONITOR READS SINUS TACHY 100'S HAVE RIGHT THIGH PICC LINE PATENT AND FLUSHED WITH ONGOING PROPOFOL @ 30MCG/KG/MIN, NS @ 75ML/HR INFUSING WELL HAVE GTUBE ON PLACE PLACEMENT CHECKED RESIDUAL 0ML, WITH ONGOING NEPHRO @ 45ML/HR, HAVE KNUTSON CATHETER WITH YELLOW URINE DRAINING VIA GRAVITY, BED ON LOWEST POSITION AND LOCKED SIDE RAILS UP X3 CALL WILL CONT TO MONITOR
[2020-08-11] MEDS: MUPIROCIN OINT 2% 22 GM TUBE NS SCH (20:41)
[2020-08-11] MEDS: INSULIN GLARGINE, 100 UNIT/ML CARTRIDGE SQ SCH (21:16)
[2020-08-12] VITALS (25 sets, daily range): BP systolic 92–121; BP diastolic 54–76
[2020-08-12] MEDS: BLOOD SUGAR DIAGNOSTIC 1 EACH STRIP IN SCH ×5 (00:09→23:22)
[2020-08-12] MEDS: INSULIN REGULAR, HUMAN 100 UNIT/ML 3 ML VIAL SQ PRN ×5 (00:10→23:25)
--- NOTE | 2020-08-12 00:15 | NUR ---
PT ON BED SEDATED WITH PROPOFOL @ 25MCG/KG/MIN SPO2 98% NO SIGN OF DISTRESS,STILL ON TRACH VENT SETTING PER MD, WILL CONT TO MONITOR
[2020-08-12] MEDS: IV D5W 1,000 ML IV PRN ×2 (00:22→13:43)
[2020-08-12] MEDS: PROPOFOL 10MG/ML 50ML 50 ML IV PRN ×6 (02:31→20:03)
[2020-08-12 07:08] LABS: ALBUMIN 1.8 g/dL (3.4-5.0); BILIRUBIN,DIRECT 0.2 mg/dL (0.0-0.2); BILIRUBIN,TOTAL 0.4 mg/dL (0.2-1.0); CALCIUM, SERUM 8.9 mg/dL (8.5-10.1); CREATININE 2.6 mg/dL (0.6-1.3); MAGNESIUM 3.2 mg/dL (1.8-2.4); PHOSPHORUS 4.6 mg/dL (2.5-4.9); POTASSIUM 3.2 mmol/L (3.5-5.1); TOTAL PROTEIN, SERUM 7.2 g/dL (6.4-8.2)
--- NOTE | 2020-08-12 07:25 | NUR ---
ICU OVERFLOW RN OPENING NOTE RECEIVED PT IN BED, SEDATED. TRACH VENT SETTING TOLERATING WELL, SPO2 @100% TELE MONITOR READS SR - ST. RIGHT THIGH PICC LINE INTACT, PATENT AND FLUSHED. WITH ONGOING PROPOFOL @25MCG/KG/MIN, D5W @75ML/HR INFUSING WELL. GTUBE IN PLACE. PLACEMENT CHECKED, NO RESIDUAL. NEPHRO @45ML/HR TOLERATING FEEDING WELL. KNUTSON CATHETER IN PLACE, DRAINING YELLOW URINE VIA GRAVITY. SAFETY MEASURES IN PLACE. CALL LIGHT WITHIN REACH. BED LOCKED AND IN LOWEST POSITION WITH SIDE RAILS UP X3. WILL CONTINUE TO MONITOR
[2020-08-12 07:27] LABS: BASOPHILS % (AUTO) 0.5 % (0.0-2.0); EOSINOPHILS % (AUTO) 0.9 % (0.0-6.0); HEMATOCRIT 37 % (39-51); HEMOGLOBIN 12.2 g/dL (13.5-17.5); LYMPHOCYTES # (AUTO) 0.4 /CMM (0.8-4.8); LYMPHOCYTES % (AUTO) 4.2 % (20.0-44.0); MEAN CORPUSCULAR HGB CONC 33 g/dl (31.0-36.0); MEAN CORPUSCULAR VOLUME 88 fL (80-96); MONOCYTES # (AUTO) 0.4 /CMM (0.1-1.30); MONOCYTES % (AUTO) 3.5 % (2.0-12.0); NEUTROPHILS # (AUTO) 9.1 /CMM (1.8-8.9); NEUTROPHILS % (AUTO) 90.9 % (43.0-81.0); PLATELET COUNT (AUTO) 297 /CMM (150-450); RED BLOOD CELL COUNT(AUTO) 4.24 MIL/uL (4.5-6.0); WHITE BLOOD COUNT (AUTO) 10.1 K/uL (4.3-11.0)
--- NOTE | 2020-08-12 07:48 | NUR ---
PT ON BED SEDATED STILL ON TRACH VENT SETTING PER MD, TELE MONITOR READS SINUR RHYTHM 80'S NO SIGNIFICANT CHANGES ON CONATION NOTED, ALL NEEDS ATTENDED, DROPLET ISOLATION MAINTAIN, BED ON LOWEST POSITION AND LOCKED SIDE RAIL UP WILL ENDORSED TO AM SHIFT NURSE
[2020-08-12] MEDS: CHLORHEXIDINE GLUCONATE 15 ML UDC MM SCH ×2 (08:31→20:10)
[2020-08-12] MEDS: CHOLECALCIFEROL 1,000 UNIT TABLET (VIT D3) GT SCH (08:31)
[2020-08-12] MEDS: DEXAMETHASONE SOD PHOSPHATE 10 MG/ML VIAL IV SCH (08:32)
[2020-08-12] MEDS: HEPARIN SODIUM, PORCINE 5000 UNITS/1 ML VIAL SQ SCH ×2 (08:33→20:12)
[2020-08-12] MEDS: MUPIROCIN OINT 2% 22 GM TUBE NS SCH ×2 (08:34→20:13)
[2020-08-12] MEDS: TERAZOSIN HCL 1 MG CAPSULE GT SCH (08:47)
[2020-08-12] MEDS: AMLODIPINE BESYLATE 10 MG TABLET GT SCH (08:47)
[2020-08-12] MEDS: LABETALOL HCL (100MG) 100 MG TABLET GT SCH ×2 (08:48→17:12)
--- NOTE | 2020-08-12 09:00 | NUR ---
RN NOTES BP OF 99/64. WILL HOLD HYTRIN, TRANDATE AND NORVASC
[2020-08-12] MEDS: VANCOMYCIN 0.75 GM in IV D5W 250 ML IV SCH (14:17)
[2020-08-12 17:03] LABS: C-REACTIVE PROTEIN 32.9 mg/dL (0.0-0.9)
[2020-08-12] MEDS: LORAZEPAM INJ 2 MG/ML VIAL IV PRN (17:04)
[2020-08-12] MEDS: DOCUSATE SODIUM LIQ 100 MG/10 ML UDC GT SCH (17:11)
[2020-08-12] MEDS: THIAMINE HCL 100 MG TABLET GT SCH (17:11)
--- NOTE | 2020-08-12 17:20 | NUR ---
RN NOTES RR OF 45, DIPRIVAN INCREASED TO 30MCG/KG/MIN
--- NOTE | 2020-08-12 18:47 | NUR ---
ICU OVERFLOW RN OPENING NOTE PT IN BED, SEDATED. TRACH VENT SETTING TOLERATING WELL, SPO2 @99% TELE MONITOR READS SR - ST. RIGHT THIGH PICC LINE INTACT, PATENT AND FLUSHED. WITH ONGOING PROPOFOL @30MCG/KG/MIN, D5W @75ML/HR INFUSING WELL. GTUBE IN PLACE. PLACEMENT CHECKED, NO RESIDUAL. NEPHRO @45ML/HR TOLERATING FEEDING WELL. KNUTSON CATHETER IN PLACE, DRAINING YELLOW URINE VIA GRAVITY. SAFETY MEASURES IN PLACE. CALL LIGHT WITHIN REACH. BED LOCKED AND IN LOWEST POSITION WITH SIDE RAILS UP X3. WILL ENDORSE TO NIGHT NURSE FOR HAMILTON
[2020-08-12] MEDS: CEFEPIME 2 GM in IV D5W 100 ML IV SCH (19:47)
[2020-08-12] MEDS: INSULIN GLARGINE, 100 UNIT/ML CARTRIDGE SQ SCH (23:23)
[2020-08-13] VITALS (24 sets, daily range): BP systolic 92–135; BP diastolic 6–88
[2020-08-13] MEDS: PROPOFOL 10MG/ML 50ML 50 ML IV PRN ×9 (00:46→22:01)
[2020-08-13] MEDS: IV D5W 1,000 ML IV PRN (04:59)
[2020-08-13] MEDS: BLOOD SUGAR DIAGNOSTIC 1 EACH STRIP IN SCH ×4 (05:57→23:25)
[2020-08-13] MEDS: INSULIN REGULAR, HUMAN 100 UNIT/ML 3 ML VIAL SQ PRN ×4 (05:59→22:12)
[2020-08-13 06:51] LABS: ALBUMIN 1.7 g/dL (3.4-5.0); BILIRUBIN,DIRECT 0.2 mg/dL (0.0-0.2); BILIRUBIN,TOTAL 0.4 mg/dL (0.2-1.0); CALCIUM, SERUM 8.8 mg/dL (8.5-10.1); CREATININE 2.4 mg/dL (0.6-1.3); MAGNESIUM 2.9 mg/dL (1.8-2.4); PHOSPHORUS 3.3 mg/dL (2.5-4.9); POTASSIUM 3.1 mmol/L (3.5-5.1); TOTAL PROTEIN, SERUM 6.9 g/dL (6.4-8.2)
[2020-08-13 07:15] LABS: EOSINOPHILS % (AUTO) 0.2 % (0.0-6.0); HEMATOCRIT 27 % (39-51); HEMOGLOBIN 8.6 g/dL (13.5-17.5); LYMPHOCYTES # (AUTO) 0.9 /CMM (0.8-4.8); MEAN CORPUSCULAR HGB CONC 32 g/dl (31.0-36.0); MEAN CORPUSCULAR VOLUME 85 fL (80-96); MONOCYTES # (AUTO) 0.5 /CMM (0.1-1.30); MONOCYTES % (AUTO) 2.6 % (2.0-12.0); NEUTROPHILS # (AUTO) 17.5 /CMM (1.8-8.9); NEUTROPHILS % (AUTO) 92.2 % (43.0-81.0); PLATELET COUNT (AUTO) 454 /CMM (150-450); RED BLOOD CELL COUNT(AUTO) 3.19 MIL/uL (4.5-6.0); WHITE BLOOD COUNT (AUTO) 18.9 K/uL (4.3-11.0)
--- NOTE | 2020-08-13 07:30 | NUR ---
C CONSULTANT OVERFLOW OPENING NOTE PT IN BED, SEDATED. TRACH VENT SETTING PER MD ORDER AND TOLERATING WELL, SPO2 @98% TELE MONITOR READING SR IN 80S. RIGHT THIGH PICC LINE INTACT, PATENT AND FLUSHED AND INFUSING PROPOFOL @35MCG/KG/MIN, D5W @75ML/HR INFUSING WELL. G-TUBE CHECKED FOR PLACEMENT, NO RESIDUAL AND PT ON NEPHRO @45ML/HR TOLERATING FEEDING WELL. PT BILATERAL WRIST CMS INTACT. KNUTSON CATHETER IN PLACE, DRAINING YELLOW URINE VIA GRAVITY. ALL PT SAFETY MEASURES IN PLACE, CALL LIGHT WITHIN REACH, BED LOCKED AND IN LOWEST POSITION WITH SIDE RAILS UP X3. WILL CONTINUE TO MONITOR.
--- NOTE | 2020-08-13 07:56 | NUR ---
ICU OVERFLOW RN CLOSING NOTE, PT IN BED, SEDATED. TRACH VENT SETTING TOLERATING WELL, SPO2 @99% TELE MONITOR READS SR - ST. RIGHT THIGH PICC LINE INTACT, PATENT AND FLUSHED. WITH ONGOING PROPOFOL @35MCG/KG/MIN, D5W @75ML/HR INFUSING WELL. GTUBE IN PLACE. PLACEMENT CHECKED, NO RESIDUAL NOTED ON NEPHRO @45ML/HR TOLERATING FEEDING WELL. KNUTSON CATHETER IN PLACE, DRAINING YELLOW URINE VIA GRAVITY. SAFETY MEASURES IN PLACE, NO SIGNIFICANT CHANGE IN CONDITION DURING THE NIGHT, CALL LIGHT WITHIN REACH, BED LOCKED AND IN LOWEST POSITION WITH SIDE RAILS UP X3. ENDORSED TO ADITYA MEDINA FOR CONTINUATION OF CARE.
[2020-08-13] MEDS: MUPIROCIN OINT 2% 22 GM TUBE NS SCH ×2 (09:00→21:19)
[2020-08-13] MEDS: TERAZOSIN HCL 1 MG CAPSULE GT SCH (09:00)
[2020-08-13] MEDS: CHLORHEXIDINE GLUCONATE 15 ML UDC MM SCH ×3 (09:00→20:11)
[2020-08-13] MEDS: LABETALOL HCL (100MG) 100 MG TABLET GT SCH ×2 (09:00→16:18)
[2020-08-13] MEDS: AMLODIPINE BESYLATE 10 MG TABLET GT SCH (09:00)
[2020-08-13] MEDS: DEXAMETHASONE SOD PHOSPHATE 10 MG/ML VIAL IV SCH (09:49)
[2020-08-13] MEDS: CHOLECALCIFEROL 1,000 UNIT TABLET (VIT D3) GT SCH (09:49)
--- NOTE | 2020-08-13 10:00 | NUR ---
RN NOTE PT G TUBE NOT PATENT, CLOGGED. WILL ORDER DE-CLOGGER AND ATTEMPT THIS FIRST BEFORE CONTACTING GI
--- NOTE | 2020-08-13 10:08 | NUR ---
RN NOTE PER AUTOMATIC GLOVE FORMER MALCOLM, HOLD BP MEDS D/T LOW BP
[2020-08-13] MEDS ORDERED: POTASSIUM CHLORIDE 20 MEQ POWDER PACKET PO SCH ×2 (11:00→16:30)
[2020-08-13 12:03] LABS: BAND % (MANUAL) 2 % (0.0-5.0); LYMPHOCYTES % (MANUAL) 4 % (16-48); MONOCYTES % (MANUAL) 8 % (0-11.0); NEUTROPHILS % (MANUAL) 86 (42-76)
[2020-08-13] MEDS ORDERED: DEXTROSE 50%-WATER 50 ML DISP.SYRIN IV PRN (13:30)
--- NOTE | 2020-08-13 13:37 | NUR ---
RN NOTE PER LEONIDES MOORE TO MAX OUT PROPOFOL TO 100 MCG/KG/MIN. PT WAS NOT SEDATED AND RR OF 38 AT 40 MCG/KG/MIN. WILL TITRATE ACCORDINGLY
--- NOTE | 2020-08-13 14:15 | NUR ---
RN NOTE UNABLE TO GIVE MORNING G-TUBE MEDS D/T CLOGGED G-TUBE. G-TUBE SUCCESSFULLY UNCLOGGED AND WILL ADMIN MEDS ORDERED Addendum: 08/13/20 at 1851 by ELISA POLANCO RN PT AUSCULTATED FOR PLACEMENT, NO RESIDUALS
[2020-08-13 14:16] LABS: BASOPHILS # (AUTO) 0.2 /CMM (0.0-0.2); BASOPHILS % (AUTO) 0.8 % (0.0-2.0); HEMATOCRIT 30 % (39-51); HEMOGLOBIN 9.6 g/dL (13.5-17.5); LYMPHOCYTES # (AUTO) 0.6 /CMM (0.8-4.8); LYMPHOCYTES % (AUTO) 2.9 % (20.0-44.0); MEAN CORPUSCULAR HGB CONC 32 g/dl (31.0-36.0); MEAN CORPUSCULAR VOLUME 84 fL (80-96); MONOCYTES # (AUTO) 0.6 /CMM (0.1-1.30); NEUTROPHILS # (AUTO) 18.8 /CMM (1.8-8.9); NEUTROPHILS % (AUTO) 92.3 % (43.0-81.0); PLATELET COUNT (AUTO) 481 /CMM (150-450); RED BLOOD CELL COUNT(AUTO) 3.57 MIL/uL (4.5-6.0); WHITE BLOOD COUNT (AUTO) 20.4 K/uL (4.3-11.0)
[2020-08-13] MEDS: VANCOMYCIN 0.75 GM in IV D5W 250 ML IV SCH (14:47)
--- NOTE | 2020-08-13 15:30 | NUR ---
RN NOTE PER DNP MALCOLM, OCCULT STOOL SAMPLE ORDERED
[2020-08-13] MEDS: DOCUSATE SODIUM LIQ 100 MG/10 ML UDC GT SCH (16:18)
[2020-08-13] MEDS: PANTOPRAZOLE 40 MG VIAL IV SCH (16:20)
[2020-08-13] MEDS: THIAMINE HCL 100 MG TABLET GT SCH (17:23)
[2020-08-13 17:25] LABS: BAND % (MANUAL) 3 % (0.0-5.0); LYMPHOCYTES % (MANUAL) 11 % (16-48); MONOCYTES % (MANUAL) 4 % (0-11.0); MYELOCYTES % 2 % (0-0); NEUTROPHILS % (MANUAL) 80 (42-76)
[2020-08-13] MEDS: EPOETIN ALFA (10,000 UNIT) 10,000 UNIT/ML VIAL SQ SCH (17:25)
[2020-08-13] MEDS ORDERED: NEPRO 1,000 ML BOTTLE GT SCH (18:30)
--- NOTE | 2020-08-13 19:00 | NUR ---
ICU OVERFLOW RN CLOSING NOTE PT IN STABLE CONDITION. PT ON VENT SETTINGS PER MD ORDER, NO SIGNS OF RESP DISTRESS OR SOB. PT SEDATED RUNNING PROPOFOL AT 50 MCG/KG/MIN CURRENTLY IN RT THIGH PICC LINE. D5W DISCONTINUED AND NO IVF ORDERED. PT G-TUBE AUSCULTATED FOR PLACEMENT ONCE AGAIN (PLACEMENT VERIFIED) WITH NO RESIDUALS. ALL PT SAFETY PRECAUTIONS IN PLACE. ONCOMING RN AWARE OF DR OTERO'S ORDER TO MAX OUT PROPOFOL TO 100 MCG/KG/ML IF NEEDED, PT IS TOLERATING 50 MCG/KG/MIN CURRENTLY.
[2020-08-13] MEDS: CEFEPIME 2 GM in IV D5W 100 ML IV SCH (20:09)
[2020-08-13] MEDS: INSULIN GLARGINE, 100 UNIT/ML CARTRIDGE SQ SCH (22:10)
[2020-08-13] MEDS: LORAZEPAM INJ 2 MG/ML VIAL IV PRN (23:24)
[2020-08-14] VITALS (24 sets, daily range): BP systolic 84–116; BP diastolic 51–70
[2020-08-14] MEDS: PROPOFOL 10MG/ML 50ML 50 ML IV PRN ×13 (01:10→23:25)
[2020-08-14] MEDS: BLOOD SUGAR DIAGNOSTIC 1 EACH STRIP IN SCH ×4 (06:00→23:15)
[2020-08-14] MEDS: INSULIN REGULAR, HUMAN 100 UNIT/ML 3 ML VIAL SQ PRN ×4 (06:01→23:18)
--- NOTE | 2020-08-14 06:58 | NUR ---
RN otes In bed, resting comfortably with no distress noted. Vent setting well tolerated. Breathing even and unlabored. No physical manifestation of pain or discomfort. Noted with anxiety manifested by hyperventilation, ativan 1 mg administered with relief. Opens eyes, sedated. Feeding well tolerated. No residual. On Profonol drip started at 50mcg and slowly increasing up to 65mcg. No adverse effect noted. Kept clean and dry. Will endorse to next shift.
--- NOTE | 2020-08-14 07:30 | NUR ---
RN OPENING NOTES Patient present in bed, sedated on Propofol @65mcg/kg/min, relaxed, eyes closed, tolerating vent settings well, SPO2 is 99%, respirations even and unlabored , RR 22, at this moment, Tele-monitor readings shows NSR 90-92, G-tube noted in place, residual 10 cc noted, auscultated and flushed well, tolerating feeding (Nephro @45cc/hr) well, Fields cath in place, draining clean yellow urine by gravity. Safety measures in place, bed is locked, in lowest position, HOB elevated, will cont to monitor
[2020-08-14 07:58] LABS: ALBUMIN 1.7 g/dL (3.4-5.0); BILIRUBIN,DIRECT 0.2 mg/dL (0.0-0.2); BILIRUBIN,TOTAL 0.4 mg/dL (0.2-1.0); CALCIUM, SERUM 9.5 mg/dL (8.5-10.1); CREATININE 2.1 mg/dL (0.6-1.3); POTASSIUM 3.7 mmol/L (3.5-5.1); TOTAL PROTEIN, SERUM 7.1 g/dL (6.4-8.2)
[2020-08-14] MEDS: DEXAMETHASONE SOD PHOSPHATE 10 MG/ML VIAL IV SCH (08:32)
[2020-08-14] MEDS: CHLORHEXIDINE GLUCONATE 15 ML UDC MM SCH ×2 (08:32→20:23)
[2020-08-14] MEDS: AMLODIPINE BESYLATE 10 MG TABLET GT SCH (08:34)
[2020-08-14] MEDS: LABETALOL HCL (100MG) 100 MG TABLET GT SCH ×2 (08:35→17:00)
[2020-08-14] MEDS: TERAZOSIN HCL 1 MG CAPSULE GT SCH (08:36)
[2020-08-14] MEDS: MUPIROCIN OINT 2% 22 GM TUBE NS SCH ×2 (08:37→20:23)
[2020-08-14] MEDS: CHOLECALCIFEROL 1,000 UNIT TABLET (VIT D3) GT SCH (08:37)
--- NOTE | 2020-08-14 09:05 | NUR ---
WOUND CARE CONSULT: REVIEWED CHART, NURSING DOCUMENTATION AND SPOKE WITH NURSE. PT HAS HISTORY OF SACRAL SCAR. CURRENT MAISHA SCORE IS 12. RECOMMENDATIONS MADE FOR SKIN PROTECTION. DISCUSSED WITH NURSING STAFF. M D IN AGREEMENT WITH PLAN OF CARE. FIRST STEP LOW AIRLOSS MATTRESS IS ON ORDER.
[2020-08-14] MEDS ORDERED: Z GUARD REMEDY 2 OZ OINT TP ONE (09:30)
[2020-08-14] MEDS: Z GUARD REMEDY 2 OZ OINT TP PRN ×2 (11:19→11:20)
[2020-08-14] MEDS: CEFEPIME 2 GM in IV D5W 100 ML IV SCH ×2 (11:19→22:54)
[2020-08-14] MEDS: PANTOPRAZOLE 40 MG VIAL IV SCH (17:02)
[2020-08-14] MEDS: DOCUSATE SODIUM LIQ 100 MG/10 ML UDC GT SCH (17:02)
[2020-08-14] MEDS: THIAMINE HCL 100 MG TABLET GT SCH (17:26)
[2020-08-14] MEDS: NEPRO 1,000 ML BOTTLE GT PRN (17:58)
--- NOTE | 2020-08-14 19:18 | NUR ---
RN CLOSING NOTES PATIENT REMAINS IN BED, TOLERATING VENT SETTINGS WELL, SPO2 OS 99-100%, VS STABLE THROUGH THE SHIFT, CLEANED AND REPOSITIONED FREQUENTLY, WOUND CARE DONE AND, PICTURES TAKEN AND PLACED IN CHART. KNUTSON CATH OUTPUT IS 550 CC, NO BM, FEEDING IS RUNNING @ 45CC/HR. SAFETY MEASURES IN PLACE, BED IS LOCKED, HOB ELEVATED, WILL ENDORSE TO PM SHIFT RN FOR HAMILTON
--- NOTE | 2020-08-14 19:30 | NUR ---
RN OPENING NOTES RECEIVED SEDATED PATIENT IN NO S/SX OF ACUTE DISTRESS AT THIS TIME. NO SOB NOTED. PATIENT'S BREATHING IS EVEN AND UNLABORED. NO S/SX OF ACUTE DISTRESS AT THIS TIME. NO SOB NOTED. PATIENT'S BREATHING IS EVEN AND UNLABORED. PATIENT ON MECHANICAL VENT; SETTINGS PRESCRIBED; PT TOLERATED WELL. AMBU BAG AT BED SIDE ALARMS SET PER PROTOCOL AND AUDIBLE. VENT PLUGGED IN TO RED OUTLET. NO DISTRESS NOTED.G TUBE FLUSHING AND PATENT; SITE CLEAN DRY AND INTACT; NO RESIDUAL NOTED. WITH ONGOING FEEDING OF NEPRO @45ML/HR. NOTED IV SITE ON (L FA #[id number] AND R FEMORAL PICC LINE ;PATENT, INTACT AND FLUSHING WELL; NO S/S OF INFECTION OR INFILTRATION. PATIENT HAS ONGOING PROPOFOL DRIP ; RECEIVED @ DOSE RATE OF 701MCG/KG/MIN MONITORED AND TITRATED PER PROTOCOL. KNUTSON CATH IN PLACE, MODERATE URINE OUTPUT NOTED BILATERAL SOFT WRIST RESTRAINTS IN PLACE, ASSESSED PER PROTOCOL. SAFETY MEASURES HAVE BEEN PROVIDED AND IMPLEMENTED. PATIENT BED ALARM IS ON. HEAD OF BED ELEVATED. BED IS LOCKED, IN LOWEST POSITION AND SIDE RAILS UP. CALL LIGHT WITHIN REACH OF THE PATIENT. APPLICABLE ISOLATION PRECAUTIONS IN PLACE. WILL CONTINUE TO MONITOR AND REASSESS FOR ANY CHANGES AND WILL CARRY OUT ANY ONGOING AND ACTIVE MD ORDER. Addendum: 08/16/20 at 0249 by MANUELA CHAU RN CORRECTION: NO BILATERAL SOFT WRIST RESTRAINTS FOR THIS PATIENT AND PROPOFOL DRIP WAS RECEIVED @70MCG/KG/MIN NOT 701MCG/KG/MIN
--- NOTE | 2020-08-14 23:00 | NUR ---
RN NOTES PATIENT REMAINS IN NO ACUTE RESPIRATORY DISTRESS AT THIS TIME, NO CHANGES TO CONDITION/STATUS. ANODIZER WELL AWARE. WILL CONTINUE TO MONITOR AND REASSESS FOR ANY CHANGES THROUGHOUT THE SHIFT
[2020-08-14] MEDS: INSULIN GLARGINE, 100 UNIT/ML CARTRIDGE SQ SCH (23:17)
[2020-08-15] VITALS (24 sets, daily range): BP systolic 89–121; BP diastolic 57–81
[2020-08-15] MEDS: PROPOFOL 10MG/ML 50ML 50 ML IV PRN ×14 (01:12→22:25)
[2020-08-15] MEDS ORDERED: VANCOMYCIN 0.75 GM in IV D5W 250 ML IV SCH (03:00)
--- NOTE | 2020-08-15 03:00 | NUR ---
RN NOTES NO CHANGE IN PATIENT CONDITION AT THIS TIME PATIENT VITALS STABLE, NO SIGNS OF ACUTE RESPIRATORY DISTRESS. PIPE FITTER MARINE MADE AWARE. WILL CONTINUE TO MONITOR AND REASSESS FOR ANY CHANGES THROUGHOUT THE SHIFT.
--- NOTE | 2020-08-15 03:55 | NUR ---
RN NOTES STILL AWAITING FOR VANCO TROUGH RESULT ; DUE VANCO AT 0300AM WILL BE GIVEN ONCE TROUGH LEVEL COMES OUT. JAVA PROJECT MANAGER MADE AWARE. Addendum: 08/15/20 at 0452 by MANUELA CHAU RN -AT 0445 VANCO TROUGH CAME OUT 21. -CALLED [facility] TO CHECK IF MEDICATION NEEDS TO BE PUT ON HOLD OR PROCEED WITH ADMNISTRATION. SPOKE WITH MISHA AND ADVISE RESULT @21. SHE SAID PROCEED AND ADMINSTER. WILL ADMINSTER ADVISED BY PHARMACY. JAVA PROJECT MANAGER MADE AWARE.
[2020-08-15] MEDS: BLOOD SUGAR DIAGNOSTIC 1 EACH STRIP IN SCH ×4 (05:15→23:26)
[2020-08-15] MEDS: INSULIN REGULAR, HUMAN 100 UNIT/ML 3 ML VIAL SQ PRN ×4 (05:20→23:29)
[2020-08-15 06:58] LABS: BASOPHILS # (AUTO) 0.2 /CMM (0.0-0.2); BASOPHILS % (AUTO) 0.9 % (0.0-2.0); EOSINOPHILS % (AUTO) 0.9 % (0.0-6.0); HEMATOCRIT 27 % (39-51); HEMOGLOBIN 8.8 g/dL (13.5-17.5); LYMPHOCYTES # (AUTO) 1.2 /CMM (0.8-4.8); LYMPHOCYTES % (AUTO) 5.7 % (20.0-44.0); MEAN CORPUSCULAR HGB CONC 33 g/dl (31.0-36.0); MEAN CORPUSCULAR VOLUME 89 fL (80-96); MONOCYTES % (AUTO) 4.8 % (2.0-12.0); NEUTROPHILS # (AUTO) 18.1 /CMM (1.8-8.9); NEUTROPHILS % (AUTO) 87.7 % (43.0-81.0); PLATELET COUNT (AUTO) 366 /CMM (150-450); RED BLOOD CELL COUNT(AUTO) 2.98 MIL/uL (4.5-6.0); WHITE BLOOD COUNT (AUTO) 20.6 K/uL (4.3-11.0)
--- NOTE | 2020-08-15 07:07 | NUR ---
RN CLOSING NOTE: PATIENT REMAINS IN ROOM IN NO SIGNS OF RESPIRATORY DISTRESS. SAFETY MEASURES IMPLEMENTED, BED IN LOWEST POSITION, LOCKED, SIDE RAILS UP, CALL LIGHT WITHIN REACH. ALL NEEDS AND ORDERS ADDRESSED DURING THE SHIFT. IV ACCESS MAINTAINED INTACT, SECURED AND FLUSHING WELL. ALL DUE MEDS GIVEN ORDERED & SCHEDULED ; PATIENT TOLERATED WELL. PATIENT KEPT CLEAN AND COMFORTABLE WITHIN THE SHIFT. ENDORSED TO INCOMING SHIFT RN FOR CONTINUITY OF CARE.
[2020-08-15 07:29] LABS: CALCIUM, SERUM 8.2 mg/dL (8.5-10.1); CREATININE 2.2 mg/dL (0.6-1.3); MAGNESIUM 2.7 mg/dL (1.8-2.4); PHOSPHORUS 3.2 mg/dL (2.5-4.9); POTASSIUM 3.3 mmol/L (3.5-5.1)
--- NOTE | 2020-08-15 07:30 | NUR ---
RN OPENING NOTES PATIENT PRESENT IN JILL, SEDATED OB PROPOFOL @65MCG/KG/MIN, RELAXED, FLACC 0, ON MECH VENT, TOLERATING SETTINGS WELL, SPO2 IS 96%, NSR ON TELEMONITOR, 90S, KNUTSON CATH IN PLACE, DRAINING CLEAR YELLOW URINE BY GRAVITY, G-TUBE NOTED, FLUSHED AND AUSCULTATED, RUNNING FEEDING FORMULA (NEPHRO@45CC/HR), NO RESIDUAL NOTED, IV LINES PATENT AND INTACT, FLUSHES WELL, PATIENT ON ISOLATION FOR COVID-19, SAFETY MEASURES IN PLACE, BED IS LOCKED, HOB ELEVATED, ALARMS CHECKED, WILL CONT TO MONITOR
[2020-08-15 07:38] LABS: ALBUMIN 1.5 g/dL (3.4-5.0); BILIRUBIN,TOTAL 0.8 mg/dL (0.2-1.0); TOTAL PROTEIN, SERUM 6.1 g/dL (6.4-8.2)
[2020-08-15] MEDS: LABETALOL HCL (100MG) 100 MG TABLET GT SCH ×2 (09:00→16:48)
[2020-08-15] MEDS: TERAZOSIN HCL 1 MG CAPSULE GT SCH (09:00)
[2020-08-15] MEDS: AMLODIPINE BESYLATE 10 MG TABLET GT SCH (09:00)
[2020-08-15] MEDS: DEXAMETHASONE SOD PHOSPHATE 10 MG/ML VIAL IV SCH (09:31)
[2020-08-15] MEDS: CHLORHEXIDINE GLUCONATE 15 ML UDC MM SCH ×2 (09:32→20:16)
[2020-08-15] MEDS: CHOLECALCIFEROL 1,000 UNIT TABLET (VIT D3) GT SCH (09:32)
[2020-08-15] MEDS: MUPIROCIN OINT 2% 22 GM TUBE NS SCH ×2 (09:34→20:17)
[2020-08-15] MEDS ORDERED: POTASSIUM CHLORIDE 20 MEQ POWDER PACKET GT ONE (11:00)
[2020-08-15] MEDS: CEFEPIME 2 GM in IV D5W 100 ML IV SCH ×2 (11:32→22:45)
[2020-08-15 14:02] LABS: BAND % (MANUAL) 5 % (0.0-5.0); LYMPHOCYTES % (MANUAL) 2 % (16-48); METAMYELOCYTES % 1 % (0-0); MYELOCYTES % 6 % (0-0); NEUTROPHILS % (MANUAL) 86 (42-76)
[2020-08-15] MEDS: HEPARIN SODIUM, PORCINE 5000 UNITS/1 ML VIAL SQ SCH ×2 (14:12→20:24)
[2020-08-15] MEDS: PANTOPRAZOLE 40 MG VIAL IV SCH (16:34)
[2020-08-15] MEDS: DOCUSATE SODIUM LIQ 100 MG/10 ML UDC GT SCH (16:46)
[2020-08-15] MEDS: NEPRO 1,000 ML BOTTLE GT PRN (16:46)
[2020-08-15] MEDS: THIAMINE HCL 100 MG TABLET GT SCH (17:04)
[2020-08-15] MEDS: EPOETIN ALFA (10,000 UNIT) 10,000 UNIT/ML VIAL SQ SCH (17:32)
--- NOTE | 2020-08-15 18:45 | NUR ---
RN CLOSING NOTES PATIENT REMAINS IN BED, TOLERATING VENT SETTINGS WELL, SPO2 OS 99-100%, VS STABLE THROUGH THE SHIFT, CLEANED AND REPOSITIONED FREQUENTLY, NOTED SMALL LEAKAGE ON G-TUBE, HOSPITALIST NOTIFIED AND CHECKED, OK TO PUT DRESSING AND MONITOR FOR CHANGES, NO BM, FEEDING IS RUNNING @ 45CC/HR. SAFETY MEASURES IN PLACE, BED IS LOCKED, HOB ELEVATED, WILL ENDORSE TO PM SHIFT RN FOR HAMILTNO
--- NOTE | 2020-08-15 19:30 | NUR ---
RN NOTES PATIENT REMAINS IN NO ACUTE RESPIRATORY DISTRESS AT THIS TIME;STILL ON PRESCRIBED VENT SETTINGS & TOLERATES WELL, NO CHANGES TO CONDITION/STATUS. AERIAL CROP DUSTER WELL AWARE. WILL CONTINUE TO MONITOR AND REASSESS FOR ANY CHANGES THROUGHOUT THE SHIFT Addendum: 08/16/20 at 0649 by MANUELA CHAU RN please disregard wrong time of documentation
--- NOTE | 2020-08-15 19:30 | NUR ---
RN OPENING NOTES RECEIVED SEDATED PATIENT IN NO S/SX OF ACUTE DISTRESS AT THIS TIME. NO SOB NOTED. PATIENT'S BREATHING IS EVEN AND UNLABORED. NO S/SX OF ACUTE DISTRESS AT THIS TIME. NO SOB NOTED. PATIENT'S BREATHING IS EVEN AND UNLABORED. PATIENT ON MECHANICAL VENT; SETTINGS PRESCRIBED; PT TOLERATED WELL. AMBU BAG AT BED SIDE ALARMS SET PER PROTOCOL AND AUDIBLE. VENT PLUGGED IN TO RED OUTLET. NO DISTRESS NOTED. G TUBE FLUSHING AND PATENT; SITE CLEAN DRY AND INTACT; NO RESIDUAL NOTED. WITH ONGOING FEEDING OF NEPRO @45ML/HR, PT TOLERATES WELL. NOTED IV SITE ON L FA #22 AND R FEMORAL PICC LINE ;PATENT, INTACT AND FLUSHING WELL; NO S/S OF INFECTION OR INFILTRATION. PATIENT HAS ONGOING PROPOFOL DRIP ; RECEIVED @ DOSE RATE OF 90MCG/KG/MIN MONITORED AND TITRATED PER PROTOCOL. KNUTSON CATH IN PLACE, MODERATE URINE OUTPUT NOTED. WITH LOW AIR LOSS MATTRESS ON SAFETY MEASURES HAVE BEEN PROVIDED AND IMPLEMENTED. PATIENT BED ALARM IS ON. HEAD OF BED ELEVATED. BED IS LOCKED, IN LOWEST POSITION AND SIDE RAILS UP. CALL LIGHT WITHIN REACH OF THE PATIENT. APPLICABLE ISOLATION PRECAUTIONS IN PLACE. WILL CONTINUE TO MONITOR AND REASSESS FOR ANY CHANGES AND WILL CARRY OUT ANY ONGOING AND ACTIVE MD ORDER.
[2020-08-15] MEDS ORDERED: SORBITOL SOLUTION 30 ML PO ONE (21:00)
[2020-08-15] MEDS ORDERED: LACTULOSE 10 G/15 ML UDC (PYXIS) PO ONE (21:00)
--- NOTE | 2020-08-15 23:00 | NUR ---
RN NOTES PATIENT REMAINS IN NO ACUTE RESPIRATORY DISTRESS AT THIS TIME;STILL ON PRESCRIBED VENT SETTINGS & TOLERATES WELL, NO CHANGES TO CONDITION/STATUS. VEHICLE MODIFICATION TECHNICIAN WELL AWARE. WILL CONTINUE TO MONITOR AND REASSESS FOR ANY CHANGES THROUGHOUT THE SHIFT
[2020-08-15] MEDS: INSULIN GLARGINE, 100 UNIT/ML CARTRIDGE SQ SCH (23:27)
[2020-08-16] VITALS (23 sets, daily range): BP systolic 98–130; BP diastolic 53–86
[2020-08-16] MEDS: PROPOFOL 10MG/ML 50ML 50 ML IV PRN ×15 (01:35→22:57)
[2020-08-16] MEDS: BLOOD SUGAR DIAGNOSTIC 1 EACH STRIP IN SCH ×4 (05:47→23:09)
[2020-08-16] MEDS: INSULIN REGULAR, HUMAN 100 UNIT/ML 3 ML VIAL SQ PRN ×4 (05:56→23:09)
[2020-08-16 06:26] LABS: ABG BASE EXCESS -10.9 mmol/L; ABG OXYGEN SATURATION 96.6 % (92.0-98.5); ABG PCO2 30.4 mmHg (35.0-45.0); ABG PH 7.293 (7.350-7.450); ABG PO2 89.4 mmHg (75.0-100.0); AaDO2 268.9 mmHg; COHb 0.1 % (0.5-1.5); MetHb 0.3 % (0.0-1.5); O2Hb 96.2 % (94.0-97.0); SITE, ABG Left Radial
--- NOTE | 2020-08-16 06:49 | NUR ---
ADAM NOTES FORWARDED ABG RESULT TO ELSY SIEGEL. MIGUEL ANGEL MEDINA MADE AWARE. Addendum: 08/16/20 at 0652 by MANUELA CHAU RN PER ELSY SIEGEL WILL NEED TO INCREASE FIO2. MIGUEL ANGEL MEDINA MADE AWARE. WILL ENDORSE TO INCOMING CARRIE MEDINA
--- NOTE | 2020-08-16 06:50 | NUR ---
RN CLOSING NOTE: PATIENT REMAINS IN ROOM IN NO SIGNS OF RESPIRATORY DISTRESS. SAFETY MEASURES IMPLEMENTED, BED IN LOWEST POSITION, LOCKED, SIDE RAILS UP, CALL LIGHT WITHIN REACH. ALL NEEDS AND ORDERS ADDRESSED DURING THE SHIFT. IV ACCESS MAINTAINED INTACT, SECURED AND FLUSHING WELL. ALL DUE MEDS GIVEN ORDERED & SCHEDULED ; PATIENT TOLERATED WELL. PATIENT KEPT CLEAN AND COMFORTABLE WITHIN THE SHIFT. ENDORSED TO INCOMING SHIFT RN FOR CONTINUITY OF CARE, WILL ALSO INFORM INCOMING SHIFT RN TO SECURE STOOL SPECIMEN FOR OCCULT BLOOD TEST PT DID NOT PASS A STOOL DURING CROP RANCH HAND.
[2020-08-16 07:16] LABS: BASOPHILS # (AUTO) 0.1 /CMM (0.0-0.2); BASOPHILS % (AUTO) 0.4 % (0.0-2.0); EOSINOPHILS % (AUTO) 2.3 % (0.0-6.0); HEMATOCRIT 31 % (39-51); HEMOGLOBIN 9.7 g/dL (13.5-17.5); LYMPHOCYTES # (AUTO) 1.2 /CMM (0.8-4.8); LYMPHOCYTES % (AUTO) 4.7 % (20.0-44.0); MEAN CORPUSCULAR HGB CONC 31 g/dl (31.0-36.0); MEAN CORPUSCULAR VOLUME 87 fL (80-96); MONOCYTES # (AUTO) 0.7 /CMM (0.1-1.30); MONOCYTES % (AUTO) 2.7 % (2.0-12.0); NEUTROPHILS # (AUTO) 22.2 /CMM (1.8-8.9); NEUTROPHILS % (AUTO) 89.9 % (43.0-81.0); PLATELET COUNT (AUTO) 471 /CMM (150-450); RED BLOOD CELL COUNT(AUTO) 3.58 MIL/uL (4.5-6.0); WHITE BLOOD COUNT (AUTO) 24.7 K/uL (4.3-11.0)
[2020-08-16 07:22] LABS: CALCIUM, SERUM 9.8 mg/dL (8.5-10.1); CREATININE 2.1 mg/dL (0.6-1.3); MAGNESIUM 3.1 mg/dL (1.8-2.4); PHOSPHORUS 4.1 mg/dL (2.5-4.9); POTASSIUM 3.3 mmol/L (3.5-5.1)
[2020-08-16 07:25] LABS: ALBUMIN 1.7 g/dL (3.4-5.0); BILIRUBIN,DIRECT 0.2 mg/dL (0.0-0.2); BILIRUBIN,TOTAL 0.4 mg/dL (0.2-1.0); TOTAL PROTEIN, SERUM 7.1 g/dL (6.4-8.2)
--- NOTE | 2020-08-16 07:30 | NUR ---
RN OPENING NOTES RECEIVED SEDATED PATIENT IN NO S/SX OF ACUTE DISTRESS AT THIS TIME. NO SOB NOTED. PATIENT'S BREATHING IS EVEN AND UNLABORED. NO S/SX OF ACUTE DISTRESS AT THIS TIME. NO SOB NOTED. PATIENT'S BREATHING IS EVEN AND UNLABORED. PATIENT ON MECHANICAL VENT; SETTINGS PRESCRIBED; PT TOLERATED WELL. AMBU BAG AT BED SIDE ALARMS SET PER PROTOCOL AND AUDIBLE. VENT PLUGGED IN TO RED OUTLET. NO DISTRESS NOTED. G TUBE FLUSHING AND PATENT; SITE CLEAN DRY AND INTACT; NO RESIDUAL NOTED. WITH ONGOING FEEDING OF NEPRO @45ML/HR, PT TOLERATES WELL. NOTED IV SITE ON L FA #22 AND R FEMORAL PICC LINE ;PATENT, INTACT AND FLUSHING WELL; NO S/S OF INFECTION OR INFILTRATION. PATIENT HAS ONGOING PROPOFOL DRIP ; RECEIVED @ DOSE RATE OF 75MCG/KG/MIN. KNUTSON CATH IN PLACE, MODERATE URINE OUTPUT NOTED. WITH LOW AIR LOSS MATTRESS ON SAFETY MEASURES HAVE BEEN PROVIDED AND IMPLEMENTED. PATIENT BED ALARM IS ON. HEAD OF BED ELEVATED. BED IS LOCKED, IN LOWEST POSITION AND SIDE RAILS UP. CALL LIGHT WITHIN REACH OF THE PATIENT. APPLICABLE ISOLATION PRECAUTIONS IN PLACE. WILL CONTINUE TO MONITOR AND PROVIDE TREATMENT
[2020-08-16] MEDS: CHOLECALCIFEROL 1,000 UNIT TABLET (VIT D3) GT SCH (08:40)
[2020-08-16] MEDS: DEXAMETHASONE SOD PHOSPHATE 10 MG/ML VIAL IV SCH (08:40)
[2020-08-16] MEDS: CHLORHEXIDINE GLUCONATE 15 ML UDC MM SCH ×2 (08:40→21:12)
[2020-08-16] MEDS: HEPARIN SODIUM, PORCINE 5000 UNITS/1 ML VIAL SQ SCH ×2 (08:41→21:40)
[2020-08-16] MEDS: LABETALOL HCL (100MG) 100 MG TABLET GT SCH ×2 (08:44→16:31)
[2020-08-16] MEDS: MUPIROCIN OINT 2% 22 GM TUBE NS SCH ×2 (08:44→21:15)
[2020-08-16] MEDS: AMLODIPINE BESYLATE 10 MG TABLET GT SCH (08:45)
[2020-08-16] MEDS: TERAZOSIN HCL 1 MG CAPSULE GT SCH (08:45)
[2020-08-16] MEDS: CEFEPIME 2 GM in IV D5W 100 ML IV SCH ×2 (10:24→23:02)
[2020-08-16 10:25] LABS: BAND % (MANUAL) 3 % (0.0-5.0); LYMPHOCYTES % (MANUAL) 4 % (16-48); METAMYELOCYTES % 1 % (0-0); MONOCYTES % (MANUAL) 5 % (0-11.0); MYELOCYTES % 9 % (0-0); NEUTROPHILS % (MANUAL) 78 (42-76)
[2020-08-16] MEDS ORDERED: POTASSIUM CHLORIDE 20 MEQ POWDER PACKET GT ONE (11:30)
[2020-08-16] MEDS: PANTOPRAZOLE 40 MG/PACK PACK GT SCH (13:49)
[2020-08-16] MEDS: THIAMINE HCL 100 MG TABLET GT SCH (17:03)
[2020-08-16] MEDS: DOCUSATE SODIUM LIQ 100 MG/10 ML UDC GT SCH (17:03)
--- NOTE | 2020-08-16 19:10 | NUR ---
RN CLOSING NOTES PATIENT IN BED, SEDATED IN NO S/SX OF ACUTE DISTRESS AT THIS TIME. NO SOB NOTED. PATIENT'S BREATHING IS EVEN AND UNLABORED. NO S/SX OF ACUTE DISTRESS AT THIS TIME. NO SOB NOTED. PATIENT'S BREATHING IS EVEN AND UNLABORED. PATIENT ON MECHANICAL VENT; SETTINGS PRESCRIBED; PT TOLERATED WELL. AMBU BAG AT BED SIDE ALARMS SET PER PROTOCOL AND AUDIBLE. VENT PLUGGED IN TO RED OUTLET. NO DISTRESS NOTED. G TUBE FLUSHING AND PATENT; SITE CLEAN DRY AND INTACT; NO RESIDUAL NOTED. WITH ONGOING FEEDING OF NEPRO @45ML/HR, PT TOLERATES WELL. NOTED IV SITE ON L FA #22 AND R FEMORAL PICC LINE ;PATENT, INTACT AND FLUSHING WELL; NO S/S OF INFECTION OR INFILTRATION. PATIENT HAS ONGOING PROPOFOL DRIP ; RECEIVED @ DOSE RATE OF 75MCG/KG/MIN. KNUTSON CATH IN PLACE, MODERATE URINE OUTPUT NOTED. WITH LOW AIR LOSS MATTRESS ON SAFETY MEASURES HAVE BEEN PROVIDED AND IMPLEMENTED. PATIENT BED ALARM IS ON. HEAD OF BED ELEVATED. BED IS LOCKED, IN LOWEST POSITION AND SIDE RAILS UP. CALL LIGHT WITHIN REACH OF THE PATIENT. APPLICABLE ISOLATION PRECAUTIONS IN PLACE. WILL ENDORSE TO TAB CARD PRESS OPERATOR NURSE FOR HAMILTON.
--- NOTE | 2020-08-16 19:40 | NUR ---
RN OPENING NOTES, PATIENT IN BED, SEDATED NO SOB NOTED, ON MECHANICAL VENTILATOR, TOLERATING CURRENT SETTINGS, NO DISTRESS NOTED, ST IN TELE MONITOR WITH HR 100S, IV SITE ON L FA #22 AND R FEMORAL PICC LINE, PATENT, INTACT, ON PROPOFOL DRIP, @ DOSE RATE OF 80MCG/KG/HELENA TUBE FLUSHING AND PATENT, NO RESIDUAL NOTED, NOTED SITE SIGHTLY LEAKING, REINFORCED DRESSING, NEPRO @45ML/HR, PT TOLERATES WELL, KNUTSON CATH IN PLACE, YELLOW URINE DRAINING BY GRAVITY, PATENCY INTACT, ALL SAFETY MEASURES IMPLEMENTED, PATIENT BED ALARM IS ON, HEAD OF BED ELEVATED, BED IS LOCKED, IN LOWEST POSITION AND SIDE RAILS UP, CALL LIGHT WITHIN REACH OF THE PATIENT, APPLICABLE ISOLATION PRECAUTIONS IN PLACE, WILL CONTINUE TO MONITOR CLOSELY.
[2020-08-16] MEDS: NEPRO 1,000 ML BOTTLE GT PRN (21:33)
[2020-08-16] MEDS: INSULIN GLARGINE, 100 UNIT/ML CARTRIDGE SQ SCH (23:50)
[2020-08-17] VITALS (24 sets, daily range): BP systolic 85–113; BP diastolic 55–81
[2020-08-17] MEDS ORDERED: VANCOMYCIN 0.75 GM in IV D5W 250 ML IV SCH ×2
[2020-08-17] MEDS: PROPOFOL 10MG/ML 50ML 50 ML IV PRN ×18 (00:24→21:31)
[2020-08-17] MEDS: LORAZEPAM INJ 2 MG/ML VIAL IV PRN (02:31)
[2020-08-17] MEDS: PANTOPRAZOLE 40 MG/PACK PACK GT SCH (05:26)
[2020-08-17] MEDS: BLOOD SUGAR DIAGNOSTIC 1 EACH STRIP IN SCH ×4 (05:33→22:59)
[2020-08-17] MEDS: INSULIN REGULAR, HUMAN 100 UNIT/ML 3 ML VIAL SQ PRN ×4 (05:35→23:07)
[2020-08-17 05:47] LABS: OCCULT BLOOD STOOL NEGATIVE (NEGATIVE)
[2020-08-17 06:23] LABS: BASOPHILS # (AUTO) 0.3 /CMM (0.0-0.2); BASOPHILS % (AUTO) 1.1 % (0.0-2.0); EOSINOPHILS % (AUTO) 1.2 % (0.0-6.0); HEMATOCRIT 30 % (39-51); HEMOGLOBIN 9.7 g/dL (13.5-17.5); LYMPHOCYTES # (AUTO) 1.6 /CMM (0.8-4.8); MEAN CORPUSCULAR HGB CONC 32 g/dl (31.0-36.0); MEAN CORPUSCULAR VOLUME 91 fL (80-96); MONOCYTES # (AUTO) 0.9 /CMM (0.1-1.30); MONOCYTES % (AUTO) 2.9 % (2.0-12.0); NEUTROPHILS # (AUTO) 27.7 /CMM (1.8-8.9); NEUTROPHILS % (AUTO) 89.8 % (43.0-81.0); PLATELET COUNT (AUTO) 414 /CMM (150-450); RED BLOOD CELL COUNT(AUTO) 3.32 MIL/uL (4.5-6.0)
[2020-08-17 07:15] LABS: ALBUMIN 1.6 g/dL (3.4-5.0); BILIRUBIN,TOTAL 0.5 mg/dL (0.2-1.0); CALCIUM, SERUM 8.9 mg/dL (8.5-10.1); CREATININE 2.3 mg/dL (0.6-1.3); MAGNESIUM 2.4 mg/dL (1.8-2.4); TOTAL PROTEIN, SERUM 6.9 g/dL (6.4-8.2)
--- NOTE | 2020-08-17 07:25 | NUR ---
RN CLOSING NOTES, PATIENT IN BED, SEDATED NO SOB NOTED, ON MECHANICAL VENTILATOR, TOLERATING CURRENT SETTINGS, HAD EPISODES OF HIGHER RESPIRATORY RATE AND HR THROUGHOUT THE NIGHT, ST IN TELE MONITOR WITH HR 100-140S, ONE DOSE OF ATIVAN GIVEN, IV SITE ON L FA #22 AND R FEMORAL PICC LINE, PATENT, INTACT, ON PROPOFOL DRIP, @ DOSE RATE OF 90MCG/KG/HELENA TUBE FLUSHING AND PATENT, NO RESIDUAL NOTED, NEPRO @45ML/HR, ALL SAFETY MEASURES IMPLEMENTED, PATIENT BED ALARM IS ON, HEAD OF BED ELEVATED, BED IS LOCKED, IN LOWEST POSITION AND SIDE RAILS UP, CALL LIGHT WITHIN REACH, ENDORSED TO ADAM HENRY FOR CONTINUATION OF CARE.
--- NOTE | 2020-08-17 07:46 | NUR ---
RN OPENING NOTE PATIENT IS IN BED SEDATED WITH HOB AT SEMI PABLO'S POSITION. PATIENT IS CURRENTLY ON A VENT TRACH WITH THE SETTINGS OF AC 20, TV 500, FIO2 50%, AND PEEP OF 8. PATIENT HAS SACRAL REDNESS. PATIENT'S R FEMORAL AND LFA ARE PATENT, INTACT, AND HAVE NO SIGNS OF INFILTRATION. PATIENT IS CURRENTLY RUNNING 100 MCG/KG/MIN OF DIPRIVAN. BED IS LOCKED IN THE LOWEST POSITION, CALL SANTILLAN WITHIN REACH, AND ALL HOSPITAL SAFETY PRECAUTIONS ARE BEING FOLLOWED. WILL CONTINUE TO MONITOR THROUGHOUT SHIFT.
[2020-08-17 08:24] LABS: BILIRUBIN,DIRECT 0.2 mg/dL (0.0-0.2)
[2020-08-17] MEDS: HEPARIN SODIUM, PORCINE 5000 UNITS/1 ML VIAL SQ SCH ×2 (08:33→20:36)
[2020-08-17] MEDS: CHOLECALCIFEROL 1,000 UNIT TABLET (VIT D3) GT SCH (08:36)
[2020-08-17] MEDS: DEXAMETHASONE SOD PHOSPHATE 10 MG/ML VIAL IV SCH (08:36)
[2020-08-17] MEDS: CHLORHEXIDINE GLUCONATE 15 ML UDC MM SCH ×2 (08:36→20:35)
[2020-08-17] MEDS: TERAZOSIN HCL 1 MG CAPSULE GT SCH (08:36)
[2020-08-17] MEDS: LABETALOL HCL (100MG) 100 MG TABLET GT SCH ×2 (08:37→16:29)
[2020-08-17] MEDS: AMLODIPINE BESYLATE 10 MG TABLET GT SCH (08:37)
[2020-08-17] MEDS: MUPIROCIN OINT 2% 22 GM TUBE NS SCH ×2 (08:39→20:35)
--- NOTE | 2020-08-17 09:00 | NUR ---
RN NOTES BP OF 99/61. TO HOLD HYTRIN, NORVASC AND TRANDATE.
[2020-08-17] MEDS: POTASSIUM CL. PREMIX PERIPHER. 50 ML IV SCH ×4 (09:06→12:26)
[2020-08-17 09:43] LABS: ABG BASE EXCESS -13.7 mmol/L; ABG OXYGEN SATURATION 97.9 % (92.0-98.5); ABG PCO2 28.1 mmHg (35.0-45.0); ABG PO2 112.3 mmHg (75.0-100.0); AaDO2 212.6 mmHg; COHb 0.3 % (0.5-1.5); MetHb 0.1 % (0.0-1.5); O2Hb 97.5 % (94.0-97.0); PEEP,BG 8 cm H2O; SITE, ABG Left Radial; VT, ABG 500 mL
[2020-08-17 09:58] LABS: WHITE BLOOD COUNT (AUTO) 30.9 K/uL (4.3-11.0)
[2020-08-17] MEDS: CEFEPIME 2 GM in IV D5W 100 ML IV SCH ×2 (10:26→23:09)
[2020-08-17 11:23] LABS: BAND % (MANUAL) 6 % (0.0-5.0); EOSINOPHILS % (MANUAL) 2 % (0-4); LYMPHOCYTES % (MANUAL) 10 % (16-48); METAMYELOCYTES % 2 % (0-0); MONOCYTES % (MANUAL) 2 % (0-11.0); MYELOCYTES % 2 % (0-0); NEUTROPHILS % (MANUAL) 76 (42-76)
[2020-08-17] MEDS: DOCUSATE SODIUM LIQ 100 MG/10 ML UDC GT SCH (16:29)
--- NOTE | 2020-08-17 17:00 | NUR ---
RN NOTES BP OF 98/63. TO HOLD TRANDATE
[2020-08-17] MEDS: THIAMINE HCL 100 MG TABLET GT SCH (17:21)
[2020-08-17] MEDS: NEPRO 1,000 ML BOTTLE GT PRN (17:21)
--- NOTE | 2020-08-17 18:33 | NUR ---
RN CLOSING NOTES PT IN BED SEDATED, DIPRIVAN RUNNING @100 MCG/KG/MIN. ON MARSHALL TRACH WITH SETTINGS OF AC 20, TV 500, FIO2 50%, AND PEEP OF 5. SACRAL REDNESS NOTED, APPLIED MEPILEX. R FEMORAL AND LFA BOTH INTACT AND PATENT. ALL MEDS GIVEN. NEEDS ATTENDED. NO SIGNIFICANT CHANGES. SAFETY PRECAUTIONS IN PLACE. CALL LIGHT WITHIN REACH. BED LOCKED AND IN LOWEST POSITION. WILL ENDORSE TO NIGHT NURSE FOR HAMILTON
[2020-08-17] MEDS: INSULIN GLARGINE, 100 UNIT/ML CARTRIDGE SQ SCH (23:06)
[2020-08-18] VITALS (35 sets, daily range): BP systolic 85–131; BP diastolic 52–80
[2020-08-18] MEDS: ACETAMINOPHEN 650 MG/20.3 ML UDC GT PRN ×2 (00:19→05:24)
[2020-08-18] MEDS: LORAZEPAM INJ 2 MG/ML VIAL IV PRN (00:19)
[2020-08-18] MEDS: PROPOFOL 10MG/ML 50ML 50 ML IV PRN ×8 (01:05→10:15)
[2020-08-18] MEDS ORDERED: MORPHINE SULFATE INJ 4 MG/ML DISP.SYRIN IVP PRN (02:00)
[2020-08-18] MEDS: PANTOPRAZOLE 40 MG/PACK PACK GT SCH (05:15)
[2020-08-18] MEDS: BLOOD SUGAR DIAGNOSTIC 1 EACH STRIP IN SCH ×4 (05:36→23:14)
[2020-08-18] MEDS: INSULIN REGULAR, HUMAN 100 UNIT/ML 3 ML VIAL SQ PRN ×3 (05:38→17:22)
[2020-08-18 06:30] LABS: HEMATOCRIT 27 % (39-51); HEMOGLOBIN 8.5 g/dL (13.5-17.5); LYMPHOCYTES # (AUTO) 2.3 /CMM (0.8-4.8); LYMPHOCYTES % (AUTO) 6.8 % (20.0-44.0); MEAN CORPUSCULAR HGB CONC 31 g/dl (31.0-36.0); MEAN CORPUSCULAR VOLUME 91 fL (80-96); MONOCYTES # (AUTO) 1.7 /CMM (0.1-1.30); NEUTROPHILS # (AUTO) 29.8 /CMM (1.8-8.9); NEUTROPHILS % (AUTO) 88.2 % (43.0-81.0); PLATELET COUNT (AUTO) 322 /CMM (150-450); RED BLOOD CELL COUNT(AUTO) 3.01 MIL/uL (4.5-6.0)
[2020-08-18 06:58] LABS: WHITE BLOOD COUNT (AUTO) 33.8 K/uL (4.3-11.0)
--- NOTE | 2020-08-18 08:00 | NUR ---
RADIOPHARMACIST NOTES, PATIENT IN BED, SEDATED WITH SOB SLIGHTINGLY NOTED, ON MECHANICAL VENTILATOR, TOLERATING CURRENT SETTINGS, WITH RESPIRATORY RATE 31 AND HR THROUGHOUT THE NIGHT, ST IN TELE MONITOR WITH HR 120 AT THIS TIME , IV SITE ON L FA #22 AND R FEMORAL PICC LINE, PATENT, INTACT, ON PROPOFOL DRIP, @ DOSE RATE OF 100 MCG/KG/HELENA TUBE FLUSHING AND PATENT, NO RESIDUAL NOTED, NEPRO @45ML/HR, ALL SAFETY MEASURES IMPLEMENTED, PATIENT BED ALARM IS ON, HEAD OF BED ELEVATED, BED IS LOCKED, IN LOWEST POSITION AND SIDE RAILS UP, CALL
[2020-08-18 08:05] LABS: ALBUMIN 1.6 g/dL (3.4-5.0); BILIRUBIN,DIRECT 0.2 mg/dL (0.0-0.2); BILIRUBIN,TOTAL 0.5 mg/dL (0.2-1.0); CALCIUM, SERUM 9.5 mg/dL (8.5-10.1); CREATININE 2.9 mg/dL (0.6-1.3); MAGNESIUM 2.6 mg/dL (1.8-2.4); PHOSPHORUS 5.2 mg/dL (2.5-4.9); POTASSIUM 3.4 mmol/L (3.5-5.1); TOTAL PROTEIN, SERUM 6.9 g/dL (6.4-8.2)
--- NOTE | 2020-08-18 08:10 | NUR ---
RN CLOSING NOTES, CONTINUE ON DIPRIVAN 100MCG, STLL WITH EPISODES OF HIGH HR/RR, ATIVAN GIVEN ONCE AND CONTINUE WITHOUT CHANGE, INFORMED MD AND ORDERED FOR MORPHINE RECEIVED, GIVEN ORDERED, ENDORSED TO DANILO FOR CONTINUATION OF CARE.
[2020-08-18] MEDS: CHOLECALCIFEROL 1,000 UNIT TABLET (VIT D3) GT SCH (08:38)
[2020-08-18] MEDS: LABETALOL HCL (100MG) 100 MG TABLET GT SCH ×2 (08:38→16:49)
[2020-08-18] MEDS: TERAZOSIN HCL 1 MG CAPSULE GT SCH (08:39)
[2020-08-18] MEDS: AMLODIPINE BESYLATE 10 MG TABLET GT SCH (08:39)
[2020-08-18] MEDS: CHLORHEXIDINE GLUCONATE 15 ML UDC MM SCH ×2 (08:40→21:54)
[2020-08-18] MEDS: CITRIC ACID/SODIUM CITRATE (BICITRA)15 ML UDC GT SCH ×4 (08:40→21:54)
[2020-08-18] MEDS: HEPARIN SODIUM, PORCINE 5000 UNITS/1 ML VIAL SQ SCH ×2 (08:41→21:56)
[2020-08-18] MEDS: DEXAMETHASONE SOD PHOSPHATE 10 MG/ML VIAL IV SCH (08:41)
[2020-08-18] MEDS: MUPIROCIN OINT 2% 22 GM TUBE NS SCH (08:42)
[2020-08-18] MEDS: ONDANSETRON HCL/PF 4 MG/2 ML VIAL IVP PRN (10:42)
[2020-08-18] MEDS: CEFEPIME 2 GM in IV D5W 100 ML IV SCH (10:42)
--- NOTE | 2020-08-18 10:54 | NUR ---
pedicurist note noted vomiting Zofran iv given hold g tube feeding at this ti e
[2020-08-18 11:02] LABS: BAND % (MANUAL) 1 % (0.0-5.0); LYMPHOCYTES % (MANUAL) 7 % (16-48); MONOCYTES % (MANUAL) 1 % (0-11.0); MYELOCYTES % 2 % (0-0); NEUTROPHILS % (MANUAL) 89 (42-76)
--- NOTE | 2020-08-18 13:00 | NUR ---
RECEIVED PATIENT FRO ICU OVERFLOW, PLACED IN ROOM 263, CONT TO MONITOR
--- NOTE | 2020-08-18 13:00 | NUR ---
tele note transferred to icu, report given to Mary transferred to room 263
--- NOTE | 2020-08-18 13:30 | NUR ---
REPORTED TO MD RECENT VOMITING, HOLD FEEDING PER DOCTOR, WILL MONITOR CLOSELY
[2020-08-18] MEDS ORDERED: IV 1/2NS 1000 ML 1,000 ML IV PRN (14:00)
[2020-08-18] MEDS: PROPOFOL 100 ML IV PRN ×4 (14:47→22:09)
[2020-08-18] MEDS: DOCUSATE SODIUM LIQ 100 MG/10 ML UDC GT SCH (16:48)
[2020-08-18] MEDS: THIAMINE HCL 100 MG TABLET GT SCH (17:20)
[2020-08-18] MEDS: EPOETIN ALFA (10,000 UNIT) 10,000 UNIT/ML VIAL SQ SCH (18:37)
--- NOTE | 2020-08-18 19:20 | NUR ---
N CLOSING NOTES PATIENT REMAINS IN BED, TOLERATING VENT SETTINGS WELL, SPO2 OS 99-100%, VS STABLE THROUGH THE SHIFT, CLEANED AND REPOSITIONED FREQUENTLY, FEEDING STOP FOR NOW DUE PATIENT VOMITED EARLIER, MD NOTIFIED . SAFETY MEASURES IN PLACE, BED IS LOCKED, HOB ELEVATED, WILL ENDORSE TO PM SHIFT RN FOR HAMILTON
[2020-08-18] MEDS ORDERED: MEROPENEM 500 MG in IV NS 0.9% 50 ML IV ONE (21:30)
[2020-08-18] MEDS ORDERED: METRONIDAZOLE 500MG/ NS 100ML 100 ML IV ONE (22:08)
[2020-08-18] MEDS ORDERED: MEROPENEM 500 MG VIAL IV ONE (22:08)
[2020-08-18] MEDS: METRONIDAZOLE 500MG/ NS 100ML 500 MG in PREMIX 1 EA IV SCH (22:12)
[2020-08-18] MEDS: INSULIN GLARGINE, 100 UNIT/ML CARTRIDGE SQ SCH (23:11)
[2020-08-19] VITALS (69 sets, daily range): BP systolic 71–113; BP diastolic 49–74
[2020-08-19] MEDS: PROPOFOL 100 ML IV PRN ×6 (00:29→12:16)
[2020-08-19] MEDS ORDERED: METRONIDAZOLE 500MG/ NS 100ML 100 ML IV ONE (05:14)
[2020-08-19] MEDS: METRONIDAZOLE 500MG/ NS 100ML 500 MG in PREMIX 1 EA IV SCH ×2 (05:29→14:14)
[2020-08-19 05:35] LABS: BASOPHILS # (AUTO) 0.3 /CMM (0.0-0.2); BASOPHILS % (AUTO) 0.9 % (0.0-2.0); EOSINOPHILS % (AUTO) 1.5 % (0.0-6.0); HEMATOCRIT 31 % (39-51); HEMOGLOBIN 10.3 g/dL (13.5-17.5); LYMPHOCYTES % (AUTO) 6.7 % (20.0-44.0); MEAN CORPUSCULAR HGB CONC 33 g/dl (31.0-36.0); MEAN CORPUSCULAR VOLUME 90 fL (80-96); MONOCYTES # (AUTO) 1.1 /CMM (0.1-1.30); MONOCYTES % (AUTO) 3.9 % (2.0-12.0); NEUTROPHILS # (AUTO) 25.5 /CMM (1.8-8.9); PLATELET COUNT (AUTO) 442 /CMM (150-450); RED BLOOD CELL COUNT(AUTO) 3.45 MIL/uL (4.5-6.0); WHITE BLOOD COUNT (AUTO) 29.3 K/uL (4.3-11.0)
[2020-08-19] MEDS: BLOOD SUGAR DIAGNOSTIC 1 EACH STRIP IN SCH ×4 (06:13→23:21)
[2020-08-19] MEDS: PANTOPRAZOLE 40 MG/PACK PACK GT SCH (06:33)
[2020-08-19 06:34] LABS: ALBUMIN 1.5 g/dL (3.4-5.0); BILIRUBIN,TOTAL 0.6 mg/dL (0.2-1.0); CREATININE 3.9 mg/dL (0.6-1.3); MAGNESIUM 2.5 mg/dL (1.8-2.4); PHOSPHORUS 7.7 mg/dL (2.5-4.9); POTASSIUM 4.1 mmol/L (3.5-5.1); TOTAL PROTEIN, SERUM 6.6 g/dL (6.4-8.2)
--- NOTE | 2020-08-19 07:30 | NUR ---
RN OPENING NOTES Patient present in bed, sedated on Propofol @100mcg/kg/min, relaxed, eyes closed, tolerating vent settings well, SPO2 is 96%, respirations even and unlabored , RR 38, at this moment, Tele-monitor readings shows NST 110-112, G-tube noted in place, residual MORE THAN 65 cc noted, auscultated and flushed well, Fields cath in place, draining clean yellow urine by gravity. Safety measures in place, bed is locked, in lowest position, HOB elevated, will cont to monitor
[2020-08-19] MEDS: CHOLECALCIFEROL 1,000 UNIT TABLET (VIT D3) GT SCH ×2 (08:43→09:00)
[2020-08-19] MEDS: HEPARIN SODIUM, PORCINE 5000 UNITS/1 ML VIAL SQ SCH ×2 (08:43→21:57)
[2020-08-19] MEDS: CHLORHEXIDINE GLUCONATE 15 ML UDC MM SCH ×2 (08:45→21:55)
[2020-08-19] MEDS: CITRIC ACID/SODIUM CITRATE (BICITRA)15 ML UDC GT SCH ×5 (08:45→21:55)
[2020-08-19] MEDS: TERAZOSIN HCL 1 MG CAPSULE GT SCH (08:48)
[2020-08-19] MEDS: LABETALOL HCL (100MG) 100 MG TABLET GT SCH ×2 (08:49→17:00)
[2020-08-19] MEDS: AMLODIPINE BESYLATE 10 MG TABLET GT SCH (08:49)
[2020-08-19] MEDS ORDERED: MEROPENEM 500 MG in IV NS 0.9% 50 ML IV SCH (09:00)
--- NOTE | 2020-08-19 09:00 | NUR ---
Patient is vomiting, having residual more than 65cc, notified, dr Howard notifyed, will hold PO meds
[2020-08-19] MEDS: ONDANSETRON HCL/PF 4 MG/2 ML VIAL IVP PRN (09:08)
--- NOTE | 2020-08-19 09:08 | NUR ---
vomiting, will give Zofran prn, called RT for Assistance
[2020-08-19] MEDS ORDERED: FENTANYL CITRATE IV 1,250 MCG in IV NS 0.9% 225 ML IV PRN ×4 (09:30)
[2020-08-19] MEDS: MEROPENEM 500 MG in IV NS 0.9% 100 ML IV SCH ×2 (09:42→21:55)
--- NOTE | 2020-08-19 09:46 | NUR ---
RN WILL CALL BACK FOR CAT SCAN
[2020-08-19] MEDS: INSULIN REGULAR, HUMAN 100 UNIT/ML 3 ML VIAL SQ PRN ×3 (11:15→23:29)
[2020-08-19] MEDS ORDERED: NOREPINEPHRINE 32 MG in IV NS 0.9% 218 ML IV PRN (13:00)
[2020-08-19] MEDS ORDERED: IV NS 0.9% 500 ML BAG IV ONE (13:00)
[2020-08-19] MEDS ORDERED: PHENYLEPHRINE 100 MG in IV NS 0.9% 240 ML IV PRN (13:30)
--- NOTE | 2020-08-19 13:30 | NUR ---
PER DR OTERO STOP PROPOFOL. FENTANYL AND VERSED FOR SEDATION, ALSO PUT PATIENT ON LEVOPHED, WILL CONT TO MONITOR
[2020-08-19] MEDS: Sodium Bicarbonate 150 MEQ in IV D5W 1,000 ML IV PRN (13:43)
[2020-08-19 13:44] LABS: ABG BASE EXCESS -18.8 mmol/L; ABG OXYGEN SATURATION 94.8 % (92.0-98.5); ABG PCO2 22.8 mmHg (35.0-45.0); ABG PH 7.166 (7.350-7.450); ABG PO2 84.2 mmHg (75.0-100.0); AaDO2 246.7 mmHg; COHb 0.3 % (0.5-1.5); MetHb 0.4 % (0.0-1.5); O2Hb 94.1 % (94.0-97.0); SITE, ABG Left Radial; VENT MODE, BG AC 20 500 +5 50%
[2020-08-19] MEDS: NS 0.9% IV PRN (13:54)
[2020-08-19] MEDS: FENTANYL CITRATE IV PRN (13:54)
[2020-08-19] MEDS: MIDAZOLAM HCL 100 MG in IV NS 0.9% 80 ML IV PRN (14:14)
[2020-08-19 14:49] LABS: AMYLASE 64 U/L (25-115); LIPASE 118 U/L (73-393)
[2020-08-19] MEDS: HYDROCORTISONE SOD SUCCINATE 100 MG/2 ML VIAL IV SCH ×2 (15:19→21:55)
[2020-08-19] MEDS: DOCUSATE SODIUM LIQ 100 MG/10 ML UDC GT SCH (17:00)
[2020-08-19] MEDS: THIAMINE HCL 100 MG TABLET GT SCH (17:43)
--- NOTE | 2020-08-19 18:53 | NUR ---
RN CLOSING NOTES PATIENT REMAINS IN BED, TOLERATING VENT SETTINGS WELL, SPO2 OS 95-97%, VS STABLE THROUGH THE SHIFT, CLEANED AND REPOSITIONED FREQUENTLY, NPO DUE PATIENT VOMITED EARLIER, MD NOTIFIED . SAFETY MEASURES IN PLACE, BED IS LOCKED, HOB ELEVATED, WILL ENDORSE TO PM SHIFT RN FOR HAMILTON
[2020-08-19] MEDS: INSULIN GLARGINE, 100 UNIT/ML CARTRIDGE SQ SCH (23:28)
[2020-08-20] VITALS (76 sets, daily range): BP systolic 82–147; BP diastolic 47–107
[2020-08-20] MEDS: Sodium Bicarbonate 150 MEQ in IV D5W 1,000 ML IV PRN ×2 (02:00→14:40)
[2020-08-20] MEDS: PANTOPRAZOLE 40 MG/PACK PACK GT SCH (05:47)
[2020-08-20] MEDS: HYDROCORTISONE SOD SUCCINATE 100 MG/2 ML VIAL IV SCH ×3 (05:47→20:44)
[2020-08-20] MEDS: BLOOD SUGAR DIAGNOSTIC 1 EACH STRIP IN SCH ×3 (05:48→18:23)
[2020-08-20] MEDS: INSULIN REGULAR, HUMAN 100 UNIT/ML 3 ML VIAL SQ PRN ×3 (05:57→18:23)
--- NOTE | 2020-08-20 06:28 | NUR ---
Patient remains in no acute distress in bed. patient did not have any significant change in condition during shift. all needs met, all orders carried out. Patient tolerated vent setting well and is well sedated on versed and fentanyl. Corona off at 0400. will endorse care to am RN for continuity of care.
[2020-08-20 06:37] LABS: BILIRUBIN,URINE NEGATIVE (NEGATIVE); COLOR,URINE YELLOW (YELLOW); LEUKOCYTE ESTERASE ,URINE TRACE (NEGATIVE); NITRITE, URINE NEGATIVE (NEGATIVE); PROTEIN,URINE TRACE mg/dl (NEGATIVE); UGLUCOSE NEGATIVE (NEGATIVE); UROBILINOGEN,URINE 0.2 EU/dL (0.2)
[2020-08-20 07:09] LABS: CREATININE, URINE 26.4 MG/DL (30.0-125.0); URINE TOTAL PROTEIN 76.7 mg/dL (0-11.9)
[2020-08-20] MEDS: FENTANYL CITRATE IV PRN (07:19)
[2020-08-20] MEDS: NS 0.9% IV PRN (07:19)
[2020-08-20 08:15] LABS: ABG BASE EXCESS -12.3 mmol/L; ABG OXYGEN SATURATION 90.9 % (92.0-98.5); ABG PH 7.326 (7.350-7.450); ABG PO2 62.3 mmHg (75.0-100.0); AaDO2 303.2 mmHg; COHb 0.2 % (0.5-1.5); MetHb 0.1 % (0.0-1.5); O2Hb 90.6 % (94.0-97.0); PEEP,BG 0 cm H2O; SITE, ABG Right Radial; VT, ABG 550 mL
[2020-08-20] MEDS: TERAZOSIN HCL 1 MG CAPSULE GT SCH (09:00)
[2020-08-20] MEDS: CHOLECALCIFEROL 1,000 UNIT TABLET (VIT D3) GT SCH (09:00)
[2020-08-20] MEDS: AMLODIPINE BESYLATE 10 MG TABLET GT SCH (09:00)
[2020-08-20] MEDS: LABETALOL HCL (100MG) 100 MG TABLET GT SCH ×2 (09:00→16:37)
[2020-08-20] MEDS: CITRIC ACID/SODIUM CITRATE (BICITRA)15 ML UDC GT SCH ×4 (09:00→21:00)
[2020-08-20 10:21] LABS: BACTERIA,URINE Few /HPF (None Seen); SQUAMOUS EPITHELIAL CELL,UR Rare /HPF (None Seen); YEAST,URINE Many /HPF (None Seen)
[2020-08-20 10:22] LABS: WBC,URINE 0-3 /HPF (0-3)
[2020-08-20 10:32] LABS: BASOPHILS # (AUTO) 0.2 /CMM (0.0-0.2); BASOPHILS % (AUTO) 0.7 % (0.0-2.0); EOSINOPHILS % (AUTO) 1.2 % (0.0-6.0); HEMATOCRIT 26 % (39-51); HEMOGLOBIN 8.6 g/dL (13.5-17.5); LYMPHOCYTES # (AUTO) 0.7 /CMM (0.8-4.8); LYMPHOCYTES % (AUTO) 3.1 % (20.0-44.0); MEAN CORPUSCULAR HGB CONC 33 g/dl (31.0-36.0); MEAN CORPUSCULAR VOLUME 87 fL (80-96); MONOCYTES # (AUTO) 0.7 /CMM (0.1-1.30); MONOCYTES % (AUTO) 3.3 % (2.0-12.0); NEUTROPHILS # (AUTO) 20.3 /CMM (1.8-8.9); NEUTROPHILS % (AUTO) 91.7 % (43.0-81.0); PLATELET COUNT (AUTO) 367 /CMM (150-450); RED BLOOD CELL COUNT(AUTO) 3.03 MIL/uL (4.5-6.0); WHITE BLOOD COUNT (AUTO) 22.2 K/uL (4.3-11.0)
[2020-08-20] MEDS: HEPARIN SODIUM, PORCINE 5000 UNITS/1 ML VIAL SQ SCH ×2 (10:38→20:45)
[2020-08-20] MEDS: CHLORHEXIDINE GLUCONATE 15 ML UDC MM SCH ×2 (10:42→20:44)
[2020-08-20] MEDS: MEROPENEM 500 MG in IV NS 0.9% 100 ML IV SCH ×2 (10:44→20:44)
[2020-08-20 10:58] LABS: EOSINOPHIL,URINE None Seen
[2020-08-20 11:06] LABS: CALCIUM, SERUM 7.7 mg/dL (8.5-10.1); CREATININE 4.4 mg/dL (0.6-1.3); POTASSIUM 3.6 mmol/L (3.5-5.1)
[2020-08-20] MEDS: MIDAZOLAM HCL 100 MG in IV NS 0.9% 80 ML IV PRN (13:16)
[2020-08-20] MEDS: DOCUSATE SODIUM LIQ 100 MG/10 ML UDC GT SCH (16:37)
[2020-08-20] MEDS: THIAMINE HCL 100 MG TABLET GT SCH (16:38)
[2020-08-20] MEDS: EPOETIN ALFA (10,000 UNIT) 10,000 UNIT/ML VIAL SQ SCH (18:24)
--- NOTE | 2020-08-20 20:00 | NUR ---
RN NOTES RECEIVED PT IN BED ON TRACH WITH VENT SETTINGS OF AC 28 TV 550 FIO2 55 % AND PEEP 5. O2 SAT AT 98%. PT OPEN EYES. ON TELE MONITOR SHOWS SR WITH HR 84. PT WITH RASHES ON NECK AND CHEST AREA. PER PREVIOUS NURSE HE HAD IT FOR DAYS.CONTRACTURES ON RIGHT UPPER AND LOWER EXTREMITY. ON KNUTSON CATH, WITH CLEAR YELLOW URINE OUTPUT. WITH R FEMORAL PICC LINE AND LFA G 22. BOTH PATENT AND INTACT, FLUSHED. ON VERSED AT 2MG/HR AND FENTANYL AT 2MCG/KG/HR, NA BICARB AT 100ML/HR. ALL INFUSING WELL NO SIGNS OF INFILTRATION. ALL SAFETY MEASURE IMPLEMENTED PER PROTOCOL. BED LOCKED IN LOWEST POSITION, SIDE RAILS UP. ISOLATION PRECAUTION OBTAINED.
[2020-08-20] MEDS: INSULIN GLARGINE, 100 UNIT/ML CARTRIDGE SQ SCH (23:15)
[2020-08-21] VITALS (30 sets, daily range): BP systolic 114–142; BP diastolic 66–88
[2020-08-21] MEDS: BLOOD SUGAR DIAGNOSTIC 1 EACH STRIP IN SCH ×5 (00:29→23:19)
[2020-08-21] MEDS: Sodium Bicarbonate 150 MEQ in IV D5W 1,000 ML IV PRN ×2 (02:01→14:15)
[2020-08-21 03:48] LABS: BASOPHILS # (AUTO) 5.9 /CMM (0.0-0.2); HEMATOCRIT 24 % (39-51); HEMOGLOBIN 7.9 g/dL (13.5-17.5); MEAN CORPUSCULAR HGB CONC 34 g/dl (31.0-36.0); MEAN CORPUSCULAR VOLUME 83 fL (80-96); MONOCYTES # (AUTO) 0.7 /CMM (0.1-1.30); PLATELET COUNT (AUTO) 353 /CMM (150-450); RED BLOOD CELL COUNT(AUTO) 2.85 MIL/uL (4.5-6.0); WHITE BLOOD COUNT (AUTO) 19.8 K/uL (4.3-11.0)
[2020-08-21 04:04] LABS: CALCIUM, SERUM 7.4 mg/dL (8.5-10.1); CREATININE 4.3 mg/dL (0.6-1.3); MAGNESIUM 2.3 mg/dL (1.8-2.4); POTASSIUM 2.9 mmol/L (3.5-5.1)
[2020-08-21] MEDS: FENTANYL CITRATE IV PRN ×2 (04:05→21:57)
[2020-08-21] MEDS: NS 0.9% IV PRN ×2 (04:05→21:57)
[2020-08-21 04:18] LABS: PHOSPHORUS 8.9 mg/dL (2.5-4.9)
--- NOTE | 2020-08-21 04:34 | NUR ---
RN NOTE RECEIVED CALL FROM LAB, PT PHOSPHORUS 8.9 AND BUN 99. AGRICULTURIST GLEN NOTIFIED. NO NEW ORDER MADE.
[2020-08-21] MEDS: HYDROCORTISONE SOD SUCCINATE 100 MG/2 ML VIAL IV SCH ×3 (05:28→20:24)
[2020-08-21] MEDS: PANTOPRAZOLE 40 MG/PACK PACK GT SCH (06:00)
[2020-08-21] MEDS: INSULIN REGULAR, HUMAN 100 UNIT/ML 3 ML VIAL SQ PRN ×2 (06:02→17:22)
--- NOTE | 2020-08-21 07:05 | NUR ---
RN NOTES PT REMAINS IN BED, TOLERATING VENT SETTINGS. NOT IN ANY ACUTE DISTRESS. O2 SAT AT 96%. NORMAL SINUS RHYTHM HR AT 83.REMAINS NPO. CONTINUE ON VERSED 2MG/HR, FENTANYL AT 2MCG/KG/HR AND NA BICARB AT 100ML/HR. NO SIGNS OF INFILTRATION NOTED. PT REMAINS AFEBRILE. ON FREQUENT VISUAL CHECKS. KNUTSON IN PLACE. INDWELLING WELL. BED LOCKED IN LOWEST POSITION. SIDE RAILS UP X2. ISOLATION PRECAUTION MAINTAINED. WILL ENDORSE TO NEXT SHIFT NURSE FOR HAMILTON.
[2020-08-21 08:31] LABS: ABG OXYGEN SATURATION 92.1 % (92.0-98.5); ABG PCO2 25.7 mmHg (35.0-45.0); ABG PH 7.532 (7.350-7.450); ABG PO2 62.5 mmHg (75.0-100.0); AaDO2 301.1 mmHg; COHb 0.3 % (0.5-1.5); MetHb 0.3 % (0.0-1.5); O2Hb 91.5 % (94.0-97.0); SITE, ABG Left Radial; VENT MODE, BG ac 28 550 +5 55%
[2020-08-21] MEDS: MEROPENEM 500 MG in IV NS 0.9% 100 ML IV SCH ×2 (09:10→20:27)
[2020-08-21] MEDS: HEPARIN SODIUM, PORCINE 5000 UNITS/1 ML VIAL SQ SCH ×2 (09:13→20:30)
[2020-08-21] MEDS: AMLODIPINE BESYLATE 10 MG TABLET GT SCH (09:16)
[2020-08-21] MEDS: CITRIC ACID/SODIUM CITRATE (BICITRA)15 ML UDC GT SCH ×4 (09:16→20:24)
[2020-08-21] MEDS: CHOLECALCIFEROL 1,000 UNIT TABLET (VIT D3) GT SCH (09:16)
[2020-08-21] MEDS: CHLORHEXIDINE GLUCONATE 15 ML UDC MM SCH ×2 (09:16→20:24)
[2020-08-21] MEDS: LABETALOL HCL (100MG) 100 MG TABLET GT SCH ×2 (09:17→17:20)
[2020-08-21] MEDS: TERAZOSIN HCL 1 MG CAPSULE GT SCH (09:22)
[2020-08-21] MEDS ORDERED: POTASSIUM CHLORIDE 20 MEQ POWDER PACKET GT ONE (09:30)
[2020-08-21] MEDS: THIAMINE HCL 100 MG TABLET GT SCH (17:20)
[2020-08-21] MEDS: DOCUSATE SODIUM LIQ 100 MG/10 ML UDC GT SCH (17:21)
--- NOTE | 2020-08-21 18:33 | NUR ---
RN NOTE Trache to vent, FIO2 55% +5, remained on sedation, no sedation vacation per MD for now. Continue sedation due to agitation due to Covid PNA. Right fem TLC intact. K 2.9, made Dr. Alonso aware, with order of 40mEq /gt. Still noted with high BUN/ Cr. Contact isolation prec for Covid and MRSA nares, maintained and observed. Fields cath intact, with 750mL veronica colored urine with sediments. DC Na bicarb, on D5NS 70, Versed 2, Fentanyl 2. No GT leakage noted, will continue to monitor.
--- NOTE | 2020-08-21 19:45 | NUR ---
RN OPENING NOTES RECEIVED PT IN BED ON TRACH WITH VENT SETTINGS OF AC 28 TV 500 FIO2 55 % AND PEEP 5. O2 SAT AT 97%. TOLERATING WELL. NO SOB OR RESP DISTRESS NOTED AT THIS TIME. PT IS ABLE TO OPEN EYES. ON TELE MONITORING SHOWS NSR WITH HR 85. GTUBE CLAMPED, AUSCULTATED TO CONFIRM PLACEMENT RESIDUAL OF 0. FLUSHED PATENT. KNUTSON CATH PRESENT DRAINING CLEAR YELLOW URINE OUTPUT. PT HAS LEFT FA #22, INTACT FLUSHED. IV SITE R FEMORAL PICC LINE, 1 PORT OCCLUDED OTHERS FLUSHED ASEPTICALLY PATENT. PT IS ON VERSED AT 2MG/HR AND FENTANYL AT 2MCG/KG/HR, D5NS @70CC/HR. ALL INFUSING WELL NO SIGNS OF INFILTRATION. ALL SAFETY MEASURES IN PLACE. BED LOCKED IN LOWEST POSITION, SIDE RAILS UP X2. ISOLATION PRECAUTION IN PLACE. WILL CONT TO MONITOR.
[2020-08-21] MEDS: MIDAZOLAM HCL 100 MG in IV NS 0.9% 80 ML IV PRN (21:58)
[2020-08-21] MEDS: INSULIN GLARGINE, 100 UNIT/ML CARTRIDGE SQ SCH (23:00)
[2020-08-22] VITALS (55 sets, daily range): BP systolic 118–162; BP diastolic 70–92
[2020-08-22] MEDS: HYDROCORTISONE SOD SUCCINATE 100 MG/2 ML VIAL IV SCH ×3 (05:55→21:28)
[2020-08-22] MEDS: PANTOPRAZOLE 40 MG/PACK PACK GT SCH (05:55)
[2020-08-22] MEDS: BLOOD SUGAR DIAGNOSTIC 1 EACH STRIP IN SCH ×4 (05:55→23:23)
[2020-08-22] MEDS: INSULIN REGULAR, HUMAN 100 UNIT/ML 3 ML VIAL SQ PRN ×3 (06:47→17:44)
[2020-08-22] MEDS: IV D5/ 0.9% NACL 1,000 ML IV PRN ×2 (06:59→09:42)
--- NOTE | 2020-08-22 07:35 | NUR ---
RN CLOSING NOTES NO SIGNIFICANT CHANGES, PT STILL ON SAME ORDERED VENT SETTINGS. NO SOB OR RESP DISTRESS NOTED AT THIS TIME. PT IS ON VERSED AT 2MG/HR AND FENTANYL AT 2MCG/KG/HR, D5NS @70CC/HR. ALL INFUSING WELL ALL SAFETY MEASURES IN PLACE. BED LOCKED IN LOWEST POSITION, SIDE RAILS UP X2. ISOLATION PRECAUTION IN PLACE. WILL CONT TO MONITOR.
[2020-08-22] MEDS: MEROPENEM 500 MG in IV NS 0.9% 100 ML IV SCH ×2 (09:38→20:24)
[2020-08-22] MEDS: TERAZOSIN HCL 1 MG CAPSULE GT SCH (09:38)
[2020-08-22] MEDS: CHLORHEXIDINE GLUCONATE 15 ML UDC MM SCH ×2 (09:38→21:28)
[2020-08-22] MEDS: LABETALOL HCL (100MG) 100 MG TABLET GT SCH ×2 (09:38→17:32)
[2020-08-22] MEDS: AMLODIPINE BESYLATE 10 MG TABLET GT SCH (09:38)
[2020-08-22] MEDS: CITRIC ACID/SODIUM CITRATE (BICITRA)15 ML UDC GT SCH ×4 (09:38→21:28)
[2020-08-22] MEDS: CHOLECALCIFEROL 1,000 UNIT TABLET (VIT D3) GT SCH (09:38)
[2020-08-22] MEDS: HEPARIN SODIUM, PORCINE 5000 UNITS/1 ML VIAL SQ SCH (09:39)
[2020-08-22 09:44] LABS: ABG BASE EXCESS 2.5 mmol/L; ABG PCO2 30.4 mmHg (35.0-45.0); ABG PH 7.531 (7.350-7.450); ABG PO2 82.8 mmHg (75.0-100.0); AaDO2 275.5 mmHg; COHb 0.2 % (0.5-1.5); MetHb 0.3 % (0.0-1.5); O2Hb 95.5 % (94.0-97.0); PEEP,BG 5 cm H2O; SITE, ABG Left Radial; VT, ABG 500 mL
[2020-08-22 15:48] LABS: CREATININE 3.9 mg/dL (0.6-1.3)
[2020-08-22 15:53] LABS: POTASSIUM 2.6 mmol/L (3.5-5.1)
[2020-08-22] MEDS: DOCUSATE SODIUM LIQ 100 MG/10 ML UDC GT SCH (17:32)
[2020-08-22] MEDS: THIAMINE HCL 100 MG TABLET GT SCH (17:32)
[2020-08-22] MEDS: EPOETIN ALFA (10,000 UNIT) 10,000 UNIT/ML VIAL SQ SCH (17:47)
[2020-08-22] MEDS: FENTANYL CITRATE IV PRN (18:24)
[2020-08-22] MEDS: NS 0.9% IV PRN (18:24)
--- NOTE | 2020-08-22 19:20 | NUR ---
RN NOTE RECEIVED SEDATED PATIENT IN NO S/SX OF ACUTE DISTRESS AT THIS TIME. NO SOB NOTED. PATIENT'S BREATHING IS EVEN AND UNLABORED. PATIENT ON MECHANICAL VENT; SETTINGS PRESCRIBED;TRACH MIDLINE PT TOLERATED WELL. AMBU BAG AT BED SIDE ALARMS SET PER PROTOCOL AND AUDIBLE. VENT PLUGGED IN TO RED OUTLET. NO DISTRESS NOTED. NOTED WITH GT CLAMPED AT THIS TIME. PLACEMENT VERIFIED WITH AUSCULTATION. NO RESIDUAL TAKEN AT THIS TIME. NOTED IV SITE ON (LFA #22) AND WITH RIGHT FEMORAL PICC LINE PATENT, INTACT AND FLUSHING WELL; NO S/S OF INFECTION OR INFILTRATION. WITH IV FLUID RUNNING ORDERED. PATIENT HAS ONGOING FENTANYL DRIP @2MCG/KG/MIN AND VERSED DRIP VIA PHERESIS SPECIALIST @2MCG/KG/MIN; MONITORED PER PROTOCOL. KNUTSON CATH IN PLACE, MODERATE URINE OUTPUT NOTED VIA GRAVITY. SAFETY MEASURES HAVE BEEN PROVIDED AND IMPLEMENTED. PATIENT BED ALARM IS ON. HEAD OF BED ELEVATED. BED IS LOCKED, IN LOWEST POSITION AND SIDE RAILS UP. CALL LIGHT WITHIN REACH OF THE PATIENT. APPLICABLE ISOLATION PRECAUTIONS IN PLACE. WILL CONTINUE TO MONITOR AND REASSESS FOR ANY CHANGES AND WILL CARRY OUT ANY ONGOING AND ACTIVE MD ORDER
[2020-08-22] MEDS: FLUCONAZOLE (100 MG) 100 MG TABLET PO SCH (21:28)
[2020-08-22] MEDS: INSULIN GLARGINE, 100 UNIT/ML CARTRIDGE SQ SCH (21:45)
[2020-08-23] VITALS (95 sets, daily range): BP systolic 108–162; BP diastolic 68–101
[2020-08-23] MEDS: IV D5/ 0.9% NACL 1,000 ML IV PRN
--- NOTE | 2020-08-23 | NUR ---
RN NOTE COMPLETE BED BATH/AM CARE AND LINEN CHANGE COMPLETED. PT TOLERATED WELL. WOUND CARE DONE ORDERED, REPOSITIONED PATIENT FOR COMFORT, VITAL SIGNS STABLE VIA BEDSIDE MONITOR, WILL CONTINUE TO MONITOR
--- NOTE | 2020-08-23 04:00 | NUR ---
RN NOTE NO CHANGE IN PATIENT CONDITION AT THIS TIME PATIENT VITALS STABLE, NO SIGNS OF ACUTE RESPIRATORY DISTRESS. PT REPOSITIONED FOR COMFORT. KEPT CLEAN AND DRY. ORAL CARE DONE Q2H. WILL CONTINUE TO MONITOR AND REASSESS FOR ANY CHANGES THROUGHOUT THE SHIFT.
[2020-08-23] MEDS: HYDROCORTISONE SOD SUCCINATE 100 MG/2 ML VIAL IV SCH ×3 (04:25→17:26)
[2020-08-23 05:14] LABS: BASOPHILS # (AUTO) 0.3 /CMM (0.0-0.2); EOSINOPHILS % (AUTO) 0.9 % (0.0-6.0); HEMATOCRIT 26 % (39-51); HEMOGLOBIN 8.4 g/dL (13.5-17.5); LYMPHOCYTES # (AUTO) 1.1 /CMM (0.8-4.8); LYMPHOCYTES % (AUTO) 7.2 % (20.0-44.0); MEAN CORPUSCULAR HGB CONC 32 g/dl (31.0-36.0); MEAN CORPUSCULAR VOLUME 89 fL (80-96); MONOCYTES # (AUTO) 0.6 /CMM (0.1-1.30); MONOCYTES % (AUTO) 3.9 % (2.0-12.0); NEUTROPHILS # (AUTO) 13.2 /CMM (1.8-8.9); PLATELET COUNT (AUTO) 341 /CMM (150-450); RED BLOOD CELL COUNT(AUTO) 2.93 MIL/uL (4.5-6.0); WHITE BLOOD COUNT (AUTO) 15.3 K/uL (4.3-11.0)
[2020-08-23] MEDS: PANTOPRAZOLE 40 MG/PACK PACK GT SCH (05:20)
[2020-08-23 05:38] LABS: CALCIUM, SERUM 7.3 mg/dL (8.5-10.1); CREATININE 3.3 mg/dL (0.6-1.3); MAGNESIUM 2.2 mg/dL (1.8-2.4)
--- NOTE | 2020-08-23 05:54 | NUR ---
ADAM NOTE RECIEVED ALERT FOR CRITICAL LAB POTASSIUM 2.0. TRENTON EUBANKS NP WELFARE SERVICE AIDE. Addendum: 08/23/20 at 0609 by SRI PORTER RN RAIMUNDO GARCIA WITH ORDER TO ADMINISTER KCL 80MEQ IV. ORDER NOTED AND CARRIED OUT.
[2020-08-23] MEDS: BLOOD SUGAR DIAGNOSTIC 1 EACH STRIP IN SCH ×3 (05:57→17:26)
[2020-08-23] MEDS: INSULIN REGULAR, HUMAN 100 UNIT/ML 3 ML VIAL SQ PRN ×2 (05:59→18:12)
[2020-08-23] MEDS: POTASSIUM CL. PREMIX PERIPHER. 50 ML IV SCH ×8 (06:23→14:13)
--- NOTE | 2020-08-23 07:15 | NUR ---
RN NOTE NO ACUTE CHANGES OBSERVED, PT SEDATED IN NO S/SX OF ACUTE DISTRESS AT THIS TIME. NO SOB NOTED. PATIENT'S BREATHING IS EVEN AND UNLABORED. PATIENT ON MECHANICAL VENT; SETTINGS PRESCRIBED;TRACH MIDLINE PT TOLERATED WELL. AMBU BAG AT BED SIDE ALARMS SET PER PROTOCOL AND AUDIBLE. VENT PLUGGED IN TO RED OUTLET. NO DISTRESS NOTED. NOTED WITH GT CLAMPED AT THIS TIME. NO RESIDUAL NOTED. NOTED IV SITE ON (LFA #22) AND WITH RIGHT FEMORAL PICC LINE PATENT; NO S/S OF INFECTION OR INFILTRATION. WITH IV FLUID RUNNING ORDERED. PATIENT HAS ONGOING FENTANYL DRIP @2MCG/KG/MIN AND VERSED DRIP VIA CAR SALTER @2MCG/KG/MIN; MONITORED PER PROTOCOL. KNUTSON CATH IN PLACE, MODERATE URINE OUTPUT NOTED VIA GRAVITY. SAFETY MEASURES HAVE BEEN PROVIDED AND IMPLEMENTED. PATIENT BED ALARM IS ON. HEAD OF BED ELEVATED. BED IS LOCKED, IN LOWEST POSITION AND SIDE RAILS UP. ISOLATION PRECAUTIONS IN PLACE. ENDORSED TO MORNING RN FOR H[place]ILTON.
--- NOTE | 2020-08-23 07:30 | NUR ---
RN OPENING NOTES Patient present in bed, sedated Versed and Fenatnyl, relaxed, eyes slightly open, tolerating vent settings well, SPO2 is 98%, respirations even and unlabored , RR 28, at this moment, Tele-monitor readings shows NSR 72-74; G-tube noted in place, residual 35 CC noted, auscultated and flushed well, Fields cath in place, draining clean yellow urine by gravity. Safety measures in place, bed is locked, in lowest position, HOB elevated, will cont to monitor
[2020-08-23] MEDS: MIDAZOLAM HCL 100 MG in IV NS 0.9% 80 ML IV PRN (07:32)
[2020-08-23 07:52] LABS: ABG BASE EXCESS 1.9 mmol/L; ABG OXYGEN SATURATION 95.2 % (92.0-98.5); ABG PCO2 31.1 mmHg (35.0-45.0); ABG PH 7.516 (7.350-7.450); ABG PO2 77.7 mmHg (75.0-100.0); AaDO2 171.7 mmHg; COHb 0.3 % (0.5-1.5); MetHb 0.2 % (0.0-1.5); O2Hb 94.7 % (94.0-97.0); SITE, ABG Right Radial; VENT MODE, BG AC 28 450 40% +5
[2020-08-23] MEDS: CHOLECALCIFEROL 1,000 UNIT TABLET (VIT D3) GT SCH (08:46)
[2020-08-23] MEDS: CHLORHEXIDINE GLUCONATE 15 ML UDC MM SCH ×2 (08:47→20:15)
[2020-08-23] MEDS: FLUCONAZOLE (100 MG) 100 MG TABLET PO SCH (08:47)
[2020-08-23] MEDS: AMLODIPINE BESYLATE 10 MG TABLET GT SCH (08:47)
[2020-08-23] MEDS: CITRIC ACID/SODIUM CITRATE (BICITRA)15 ML UDC GT SCH ×4 (08:47→20:15)
[2020-08-23] MEDS: LABETALOL HCL (100MG) 100 MG TABLET GT SCH ×2 (08:47→17:26)
[2020-08-23] MEDS: TERAZOSIN HCL 1 MG CAPSULE GT SCH (08:53)
--- NOTE | 2020-08-23 09:00 | NUR ---
Per Dr Fitzpatrick, stop Fenatnyl, remain on Versed drip, will cont to monitor
[2020-08-23] MEDS: MEROPENEM 500 MG in IV NS 0.9% 100 ML IV SCH (09:46)
[2020-08-23] MEDS ORDERED: DIATR MEGLU/DIATRIZOATE SODIUM 30 ML BOTTLE (GASTROGRAPHIN) ONE (12:32)
--- NOTE | 2020-08-23 16:30 | NUR ---
Had 2 liquid brown stools , will hold Colace
[2020-08-23] MEDS: DOCUSATE SODIUM LIQ 100 MG/10 ML UDC GT SCH (17:00)
[2020-08-23 17:14] LABS: CALCIUM, SERUM 7.5 mg/dL (8.5-10.1)
[2020-08-23] MEDS: THIAMINE HCL 100 MG TABLET GT SCH (17:26)
[2020-08-23 17:36] LABS: POTASSIUM 2.8 mmol/L (3.5-5.1)
--- NOTE | 2020-08-23 19:33 | NUR ---
RN CLOSING NOTES PATIENT REMAINS IN BED, TOLERATING VENT SETTINGS WELL, SPO2 OS 98-100%, VS STABLE THROUGH THE SHIFT, CLEANED AND REPOSITIONED FREQUENTLY,had 2 liquid stools for the shift, notifyed upcoming shift, SAFETY MEASURES IN PLACE, BED IS LOCKED, HOB ELEVATED, WILL ENDORSE TO PM SHIFT RN FOR HAMILTON
[2020-08-23] MEDS: METRONIDAZOLE 500 MG TABLET PO SCH (20:50)
[2020-08-23] MEDS ORDERED: MICAFUNGIN SODIUM 100 MG VIAL IV ONE (21:19)
[2020-08-23] MEDS: MICAFUNGIN SODIUM 100 MG in IV NS 0.9% 100 ML IV SCH (21:44)
[2020-08-23] MEDS: INSULIN GLARGINE, 100 UNIT/ML CARTRIDGE SQ SCH (22:00)
--- NOTE | 2020-08-23 22:00 | NUR ---
LANTUS NON ADMINISTER PT'S BLOOD SUGAR IS 90 AND NPO STATUS,ON REGULAR FLUIDS, FEEDING IS OFF.
[2020-08-24] VITALS (86 sets, daily range): BP systolic 106–170; BP diastolic 45–109
[2020-08-24] MEDS: BLOOD SUGAR DIAGNOSTIC 1 EACH STRIP IN SCH ×4 (00:53→17:47)
[2020-08-24] MEDS ORDERED: MIDAZOLAM HCL 2 MG/2ML VIAL ONE (01:08)
--- NOTE | 2020-08-24 01:30 | NUR ---
[facility] DID NOT LEAVE EXTRA BAG OF VERSED DRIP. D/T SHORTAGE OF VERSED IN OMNICELL ONLY 12 MG OF VERSED IS AVAILABLE, WHICH WAS MIXED WITH APPROPRIATE VOLUME OF NS TO CONTINUE VERSED DRIP TILL PHARMACY WILL COME & PREPARE A NEW BAG OF VERSED DRIP BY 7 A.M. AIRPORT ENGINEER CHRIS RIBEIRO...
[2020-08-24 05:00] LABS: BASOPHILS % (AUTO) 0.1 % (0.0-2.0); EOSINOPHILS % (AUTO) 5.8 % (0.0-6.0); HEMATOCRIT 29 % (39-51); HEMOGLOBIN 9.2 g/dL (13.5-17.5); LYMPHOCYTES # (AUTO) 1.7 /CMM (0.8-4.8); LYMPHOCYTES % (AUTO) 13.6 % (20.0-44.0); MEAN CORPUSCULAR HGB CONC 31 g/dl (31.0-36.0); MEAN CORPUSCULAR VOLUME 90 fL (80-96); MONOCYTES # (AUTO) 0.9 /CMM (0.1-1.30); MONOCYTES % (AUTO) 7.1 % (2.0-12.0); NEUTROPHILS # (AUTO) 9.1 /CMM (1.8-8.9); NEUTROPHILS % (AUTO) 73.4 % (43.0-81.0); PLATELET COUNT (AUTO) 321 /CMM (150-450); RED BLOOD CELL COUNT(AUTO) 3.25 MIL/uL (4.5-6.0); WHITE BLOOD COUNT (AUTO) 12.4 K/uL (4.3-11.0)
[2020-08-24 05:31] LABS: CALCIUM, SERUM 7.9 mg/dL (8.5-10.1); CREATININE 2.7 mg/dL (0.6-1.3); MAGNESIUM 2.1 mg/dL (1.8-2.4); PHOSPHORUS 4.8 mg/dL (2.5-4.9)
[2020-08-24 05:52] LABS: POTASSIUM 2.2 mmol/L (3.5-5.1)
[2020-08-24] MEDS: METRONIDAZOLE 500 MG TABLET PO SCH ×3 (05:57→20:48)
[2020-08-24] MEDS: PANTOPRAZOLE 40 MG/PACK PACK GT SCH (06:23)
[2020-08-24] MEDS: POTASSIUM CL. PREMIX PERIPHER. 50 ML IV SCH ×8 (06:24→17:20)
--- NOTE | 2020-08-24 07:30 | NUR ---
DIET AID OPENING NOTES PT SEDATED IN BED ON VENT SETTINGS TOLERATING WELL WITH NO SIGNS OF RESP DISTRESS OR SOB, SPO2 AT 98%. PT ON VERSED @ 4MG/HR, SEDATED NO DISTRESS NOTED. PT NSR IN 90S. PT G-TUBE PLACEMENT VERIFIED VIA AUSCULTATION, NO RESIDUALS, PATENT AND INTACT. PT HAS RT FEMORAL PICC THAT IS NOT PATENT AND HAS NO BLOOD RETURN. WILL ORDER MIDLINE IV INSERTION SHORTLY. LFA #22 PATENT AND INFUSING WELL. BOTH LINES HAVE NO SIGNS OF INFILTRATION OR INFECTION. PT KNUTSON CATH DRAINING TORRES COLORED URINE TO GRAVITY. ALL SAFETY MEASURES IN PLACE. WILL CONTINUE TO MONITOR
[2020-08-24] MEDS: AMLODIPINE BESYLATE 10 MG TABLET GT SCH (08:54)
[2020-08-24] MEDS: CHOLECALCIFEROL 1,000 UNIT TABLET (VIT D3) GT SCH (08:54)
[2020-08-24] MEDS: CITRIC ACID/SODIUM CITRATE (BICITRA)15 ML UDC GT SCH ×4 (08:54→20:47)
[2020-08-24] MEDS: LABETALOL HCL (100MG) 100 MG TABLET GT SCH ×2 (08:55→16:25)
[2020-08-24] MEDS: CHLORHEXIDINE GLUCONATE 15 ML UDC MM SCH ×2 (09:00→20:47)
[2020-08-24] MEDS: HYDROCORTISONE SOD SUCCINATE 100 MG/2 ML VIAL IV SCH ×2 (09:59→16:24)
[2020-08-24] MEDS: TERAZOSIN HCL 1 MG CAPSULE GT SCH (11:14)
[2020-08-24] MEDS: MIDAZOLAM HCL 100 MG in IV NS 0.9% 80 ML IV PRN (12:29)
[2020-08-24] MEDS: Potassium Chloride 20 MEQ in IV D5W 1,000 ML IV PRN (12:53)
[2020-08-24] MEDS: NEPRO 1,000 ML BOTTLE GT PRN (15:37)
[2020-08-24] MEDS: HEPARIN SODIUM, PORCINE 5000 UNITS/1 ML VIAL SQ SCH ×2 (16:12→22:56)
[2020-08-24] MEDS: DOCUSATE SODIUM LIQ 100 MG/10 ML UDC GT SCH (16:24)
[2020-08-24 17:43] LABS: CALCIUM, SERUM 7.5 mg/dL (8.5-10.1); CREATININE 2.4 mg/dL (0.6-1.3); POTASSIUM 3.1 mmol/L (3.5-5.1)
[2020-08-24] MEDS: THIAMINE HCL 100 MG TABLET GT SCH (17:51)
--- NOTE | 2020-08-24 19:00 | NUR ---
BOX CAR WASHER CLOSING NOTES NO CHANGES TO PT STATUS, PT STABLE. ALL PT SAFETY PRECAUTION IN PLACE. WILL ENDORSE HAMILTON TO ONCOMING RN
[2020-08-24] MEDS: INSULIN GLARGINE, 100 UNIT/ML CARTRIDGE SQ SCH (22:00)
[2020-08-24] MEDS: MICAFUNGIN SODIUM 100 MG in IV NS 0.9% 100 ML IV SCH (22:02)
[2020-08-25] VITALS (62 sets, daily range): BP systolic 98–182; BP diastolic 51–109
[2020-08-25] MEDS: INSULIN REGULAR, HUMAN 100 UNIT/ML 3 ML VIAL SQ PRN ×3 (00:03→17:34)
[2020-08-25] MEDS: BLOOD SUGAR DIAGNOSTIC 1 EACH STRIP IN SCH ×4 (00:16→17:36)
[2020-08-25] MEDS: METRONIDAZOLE 500 MG TABLET PO SCH ×3 (05:07→21:02)
[2020-08-25] MEDS: PANTOPRAZOLE 40 MG/PACK PACK GT SCH (05:09)
--- NOTE | 2020-08-25 08:00 | NUR ---
research agricultural engineer note patient in bed with ett tube to vent setting as ordered, both eyes open , with Fields cath to gravity , with yellow color urine, llfa hl intact and rt femoral picc line in place on versed drip as ordered will monitor bed in lowest and locked position,
--- NOTE | 2020-08-25 08:00 | NUR ---
CONTINUOUS CHURN BUTTERMAKER NOTE CORRECTION IN CHARTING PATIENT IN BED WITH TRACH TO VENT SETTING ORDERED
--- NOTE | 2020-08-25 08:30 | NUR ---
FEEDER DRIVER NOTE PER DR OTERO OK TO TRY TO DECREASE DOSE OF VERSED WILL MONITOR
[2020-08-25] MEDS: HYDROCORTISONE SOD SUCCINATE 100 MG/2 ML VIAL IV SCH ×2 (08:37→16:34)
[2020-08-25] MEDS: CHLORHEXIDINE GLUCONATE 15 ML UDC MM SCH ×2 (08:37→21:02)
[2020-08-25] MEDS: CITRIC ACID/SODIUM CITRATE (BICITRA)15 ML UDC GT SCH ×4 (08:37→21:02)
[2020-08-25] MEDS: CHOLECALCIFEROL 1,000 UNIT TABLET (VIT D3) GT SCH (08:38)
[2020-08-25] MEDS: AMLODIPINE BESYLATE 10 MG TABLET GT SCH (08:38)
[2020-08-25] MEDS: TERAZOSIN HCL 1 MG CAPSULE GT SCH (08:38)
[2020-08-25] MEDS: LABETALOL HCL (100MG) 100 MG TABLET GT SCH ×2 (08:43→16:34)
[2020-08-25] MEDS: HEPARIN SODIUM, PORCINE 5000 UNITS/1 ML VIAL SQ SCH ×2 (08:45→21:04)
[2020-08-25 08:52] LABS: BASOPHILS # (AUTO) 0.1 /CMM (0.0-0.2); BASOPHILS % (AUTO) 1.1 % (0.0-2.0); EOSINOPHILS % (AUTO) 7.5 % (0.0-6.0); HEMATOCRIT 29 % (39-51); HEMOGLOBIN 9.5 g/dL (13.5-17.5); LYMPHOCYTES # (AUTO) 1.6 /CMM (0.8-4.8); LYMPHOCYTES % (AUTO) 13.1 % (20.0-44.0); MEAN CORPUSCULAR HGB CONC 33 g/dl (31.0-36.0); MEAN CORPUSCULAR VOLUME 95 fL (80-96); MONOCYTES # (AUTO) 0.6 /CMM (0.1-1.30); MONOCYTES % (AUTO) 5.3 % (2.0-12.0); NEUTROPHILS # (AUTO) 8.7 /CMM (1.8-8.9); PLATELET COUNT (AUTO) 277 /CMM (150-450); RED BLOOD CELL COUNT(AUTO) 3.01 MIL/uL (4.5-6.0); WHITE BLOOD COUNT (AUTO) 11.9 K/uL (4.3-11.0)
[2020-08-25 09:30] LABS: CALCIUM, SERUM 7.7 mg/dL (8.5-10.1); CREATININE 2.1 mg/dL (0.6-1.3)
[2020-08-25 09:45] LABS: POTASSIUM 2.5 mmol/L (3.5-5.1)
--- NOTE | 2020-08-25 11:10 | NUR ---
QUALITY FACILITATOR NOTE REPORTED TO MALCOLM REED THAT K 2.5 NO NEW ORDER GIVEN AT THIS TIME
--- NOTE | 2020-08-25 11:24 | NUR ---
olericulture professor note spoke with dr abdalla aware that k 2.5 stated that will check it out
[2020-08-25] MEDS: Potassium Chloride 20 MEQ in IV D5W 1,000 ML IV PRN ×2 (13:15→22:01)
[2020-08-25] MEDS: POTASSIUM CL. PREMIX PERIPHER. 50 ML IV SCH ×6 (13:47→18:31)
[2020-08-25 13:55] LABS: EOSINOPHILS % (MANUAL) 6 % (0-4); LYMPHOCYTES % (MANUAL) 18 % (16-48); MONOCYTES % (MANUAL) 2 % (0-11.0); NEUTROPHILS % (MANUAL) 74 (42-76)
--- NOTE | 2020-08-25 14:00 | NUR ---
LAY OUT FORMER NOTE NO RESIDUAL NOTED OK TO INCREASE RATE OF FEEDING AT 35 ML PER HOUR, WILL MONITOR
--- NOTE | 2020-08-25 15:33 | NUR ---
agricultural technical officer note hold on versed at this time per dr franz, no sob noted at this time rr 28
[2020-08-25] MEDS ORDERED: LORAZEPAM INJ 2 MG/ML VIAL IV PRN (16:00)
[2020-08-25] MEDS: DOCUSATE SODIUM LIQ 100 MG/10 ML UDC GT SCH (16:34)
[2020-08-25] MEDS: EPOETIN ALFA (10,000 UNIT) 10,000 UNIT/ML VIAL SQ SCH (17:15)
[2020-08-25] MEDS: THIAMINE HCL 100 MG TABLET GT SCH (17:35)
--- NOTE | 2020-08-25 18:36 | NUR ---
GLASS MECHANIC NOTE CONT ON VENT SETTING ORDERED, ON IVF ORDERED WITH KNUTSON CATH TO GRAVITY , ON G TUBE FEEDING ORDERED KEEP HOB ELELVATED AT ALL TIME WILL MONITOR
[2020-08-25] MEDS: INSULIN GLARGINE, 100 UNIT/ML CARTRIDGE SQ SCH (22:00)
[2020-08-25] MEDS: MICAFUNGIN SODIUM 100 MG in IV NS 0.9% 100 ML IV SCH (22:09)
[2020-08-26] VITALS (42 sets, daily range): BP systolic 72–169; BP diastolic 41–109
[2020-08-26] MEDS: BLOOD SUGAR DIAGNOSTIC 1 EACH STRIP IN SCH ×4 (00:12→18:24)
[2020-08-26] MEDS: INSULIN REGULAR, HUMAN 100 UNIT/ML 3 ML VIAL SQ PRN ×2 (00:14→11:57)
[2020-08-26 04:35] LABS: BASOPHILS # (AUTO) 0.2 /CMM (0.0-0.2); BASOPHILS % (AUTO) 0.8 % (0.0-2.0); EOSINOPHILS % (AUTO) 3.5 % (0.0-6.0); HEMATOCRIT 32 % (39-51); HEMOGLOBIN 9.9 g/dL (13.5-17.5); LYMPHOCYTES # (AUTO) 1.6 /CMM (0.8-4.8); MEAN CORPUSCULAR HGB CONC 31 g/dl (31.0-36.0); MEAN CORPUSCULAR VOLUME 91 fL (80-96); MONOCYTES # (AUTO) 0.5 /CMM (0.1-1.30); MONOCYTES % (AUTO) 2.6 % (2.0-12.0); NEUTROPHILS # (AUTO) 16.7 /CMM (1.8-8.9); NEUTROPHILS % (AUTO) 85.1 % (43.0-81.0); PLATELET COUNT (AUTO) 306 /CMM (150-450); RED BLOOD CELL COUNT(AUTO) 3.53 MIL/uL (4.5-6.0); WHITE BLOOD COUNT (AUTO) 19.6 K/uL (4.3-11.0)
[2020-08-26 04:53] LABS: ALBUMIN 1.7 g/dL (3.4-5.0); BILIRUBIN,TOTAL 0.4 mg/dL (0.2-1.0); CALCIUM, SERUM 7.9 mg/dL (8.5-10.1); MAGNESIUM 1.5 mg/dL (1.8-2.4); PHOSPHORUS 2.4 mg/dL (2.5-4.9); POTASSIUM 2.9 mmol/L (3.5-5.1); TOTAL PROTEIN, SERUM 6.6 g/dL (6.4-8.2)
[2020-08-26] MEDS: PANTOPRAZOLE 40 MG/PACK PACK GT SCH (05:32)
[2020-08-26] MEDS: METRONIDAZOLE 500 MG TABLET PO SCH ×3 (05:32→21:03)
[2020-08-26] MEDS: ACETAMINOPHEN 650 MG/20.3 ML UDC GT PRN (05:41)
[2020-08-26] MEDS: Potassium Chloride 20 MEQ in IV D5W 1,000 ML IV PRN ×2 (05:56→17:05)
--- NOTE | 2020-08-26 08:00 | NUR ---
DNP BRIANNA NOTIFIED OF K RESULT OF 2.9, PHOS 2.4, AND MAG 1.5. AWAITING ORDERS FOR REPLACEMENT
[2020-08-26] MEDS: CITRIC ACID/SODIUM CITRATE (BICITRA)15 ML UDC GT SCH ×4 (08:34→21:03)
[2020-08-26] MEDS: CHLORHEXIDINE GLUCONATE 15 ML UDC MM SCH ×2 (08:34→21:03)
[2020-08-26] MEDS: HYDROCORTISONE SOD SUCCINATE 100 MG/2 ML VIAL IV SCH ×2 (08:34→17:26)
[2020-08-26] MEDS: TERAZOSIN HCL 1 MG CAPSULE GT SCH (08:35)
[2020-08-26] MEDS: LABETALOL HCL (100MG) 100 MG TABLET GT SCH ×2 (08:35→17:27)
[2020-08-26] MEDS: CHOLECALCIFEROL 1,000 UNIT TABLET (VIT D3) GT SCH (08:35)
[2020-08-26] MEDS: AMLODIPINE BESYLATE 10 MG TABLET GT SCH (08:36)
[2020-08-26] MEDS: HEPARIN SODIUM, PORCINE 5000 UNITS/1 ML VIAL SQ SCH ×2 (08:40→21:04)
[2020-08-26] MEDS ORDERED: Magnesium 1GM/D5W 100ML PREMIX 100 ML IV SCH (10:00)
--- NOTE | 2020-08-26 10:00 | NUR ---
DR OTERO DOWNGRADES PT TO TELE, PT TRANSFERRED TO ROOM 106 IN [place] TO [place]. NO BELONGINGS WITH PATIENT, BELONGINGS PAPER SIGNED.
--- NOTE | 2020-08-26 10:15 | NUR ---
FINE GRADE BULLDOZER OPERATOR NOTES BEDSIDE REPORT RECEIVED FROM RUY MONTGOMERY) FROM ICU. NO DISTRESS NOTED. PT NSR IN 90S. PT G-TUBE PLACEMENT VERIFIED VIA AUSCULTATION, WITH RESIDUAL OF 100CC.. PT HAS RT FEMORAL PICC THAT IS NOT PATENT AND HAS NO BLOOD RETURN. PT KNUTSON CATH DRAINING TORRES COLORED URINE TO GRAVITY. ALL SAFETY MEASURES IN PLACE. WILL CONTINUE TO MONITOR.
[2020-08-26] MEDS: POTASSIUM CL. PREMIX PERIPHER. 50 ML IV SCH ×3 (11:16→12:02)
[2020-08-26] MEDS: DOCUSATE SODIUM LIQ 100 MG/10 ML UDC GT SCH (17:25)
[2020-08-26] MEDS: THIAMINE HCL 100 MG TABLET GT SCH (17:26)
[2020-08-26] MEDS: NEPRO 1,000 ML BOTTLE GT PRN (18:27)
[2020-08-26] MEDS ORDERED: K PHOS NEUTRAL 250 MG TABLET GT ONE (18:30)
--- NOTE | 2020-08-26 18:44 | NUR ---
RN CLOSING NOTES PT IN BED ON VENT SETTINGS TOLERATING WELL WITH NO SIGNS OF RESP DISTRESS OR SOB, SPO2 AT 98%. PT NSR IN 90S. PT G-TUBE PLACEMENT VERIFIED VIA AUSCULTATION, NO RESIDUALS, PATENT AND INTACT. RIGHT FEMORAL IV SITE INTACT AND FLUSHED WELL. BOTH LINES HAVE NO SIGNS OF INFILTRATION OR INFECTION. PT KNUTSON CATH DRAINING TORRES COLORED URINE TO GRAVITY. ALL SAFETY MEASURES IN PLACE. WILL ENDORSE TO NEXT SHIFT.
--- NOTE | 2020-08-26 19:59 | NUR ---
RN NOTES PATIENT IN BED ON VENT SETTINGS TOLERATING WELL. NO SIGNS OF RESP DISTRESS OR SOB, SPO2 AT 98%. PT NSR IN 90S. WITH G-TUBE PLACEMENT VERIFIED VIA AUSCULTATION ON NEPRO @35ML/HR. RIGHT FEMORAL IV SITE INTACT AND FLUSHED WELL. NO S/S OF ANY INFILTRATION OR INFECTION. PT KNUTSON CATH DRAINING TORRES COLORED URINE TO GRAVITY. BED LOCKED AND IN LOWEST POSITION WITH SIDE RAILS UP X2. ALL SAFETY MEASURES IN PLACE. WILL CONTINUE TO MONITOR.
[2020-08-26] MEDS: MICAFUNGIN SODIUM 100 MG in IV NS 0.9% 100 ML IV SCH (21:59)
[2020-08-26] MEDS: INSULIN GLARGINE, 100 UNIT/ML CARTRIDGE SQ SCH (22:40)
[2020-08-27] VITALS: BP 143/87
[2020-08-27] MEDS: BLOOD SUGAR DIAGNOSTIC 1 EACH STRIP IN SCH ×5 (00:24→23:41)
[2020-08-27] MEDS: INSULIN REGULAR, HUMAN 100 UNIT/ML 3 ML VIAL SQ PRN ×3 (00:25→18:42)
[2020-08-27] MEDS: Potassium Chloride 20 MEQ in IV D5W 1,000 ML IV PRN ×2 (01:08→08:29)
[2020-08-27 04:00] VITALS: BP 144/78
[2020-08-27] MEDS: METRONIDAZOLE 500 MG TABLET PO SCH ×3 (05:50→22:14)
[2020-08-27] MEDS: PANTOPRAZOLE 40 MG/PACK PACK GT SCH (05:51)
--- NOTE | 2020-08-27 07:10 | NUR ---
RN OPENING NOTES RECEIVED PT IN BED, OPENS EYES. VENT SETTINGS TOLERATING WELL. NO SOB OR ANY DISTRESS. SPO2 @99%. SR IN TELE MONITOR. G-TUBE PLACEMENT VERIFIED VIA AUSCULTATION. NO RESIDUAL. FEEDING OF NEPRO @35ML/HR, TOLERATING FEEDING WELL. RIGHT FEMORAL IV SITE INTACT, PATENT AND FLUSHED. KNUTSON CATH DRAINING TORRES COLORED URINE TO GRAVITY OUTPUT. SAFETY MEASURES IN PLACE. CALL LIGHT WITHIN REACH. BED LOCKED AND IN LOWEST POSITION WITH SIDE RAILS UP X2. WILL CONTINUE TO MONITOR.
--- NOTE | 2020-08-27 07:15 | NUR ---
RN NOTES PATIENT IN BED ON VENT SETTINGS TOLERATING WELL. NO SOB AT THIS TIME, SPO2 AT 96%. PT NSR IN 80S. WITH G-TUBE PLACEMENT VERIFIED VIA AUSCULTATION ON NEPRO @35ML/HR WITH 30 ML RESIDUAL. RIGHT FEMORAL IV SITE INTACT AND FLUSHED WELL. NO S/S OF ANY INFILTRATION OR INFECTION. PT KNUTSON CATH DRAINING TORRES COLORED URINE TO GRAVITY OUTPUT 1200. BED LOCKED AND IN LOWEST POSITION WITH SIDE RAILS UP X2. ALL SAFETY MEASURES IN PLACE. WILL ENDORSE TO ONCOMING SHIFT.
[2020-08-27 07:20] LABS: CREATININE 1.5 mg/dL (0.6-1.3); MAGNESIUM 1.5 mg/dL (1.8-2.4); PHOSPHORUS 2.5 mg/dL (2.5-4.9)
[2020-08-27 07:34] LABS: POTASSIUM 2.5 mmol/L (3.5-5.1)
[2020-08-27 08:00] VITALS: BP 156/78
[2020-08-27] MEDS: CHLORHEXIDINE GLUCONATE 15 ML UDC MM SCH ×2 (09:19→22:13)
[2020-08-27] MEDS: CHOLECALCIFEROL 1,000 UNIT TABLET (VIT D3) GT SCH (09:19)
[2020-08-27] MEDS: TERAZOSIN HCL 1 MG CAPSULE GT SCH (09:20)
[2020-08-27] MEDS: HYDROCORTISONE SOD SUCCINATE 100 MG/2 ML VIAL IV SCH ×2 (09:20→17:44)
[2020-08-27] MEDS: AMLODIPINE BESYLATE 10 MG TABLET GT SCH (09:21)
[2020-08-27] MEDS: LABETALOL HCL (100MG) 100 MG TABLET GT SCH ×2 (09:21→17:44)
[2020-08-27] MEDS: HEPARIN SODIUM, PORCINE 5000 UNITS/1 ML VIAL SQ SCH ×2 (09:24→22:19)
[2020-08-27] MEDS: CITRIC ACID/SODIUM CITRATE (BICITRA)15 ML UDC GT SCH ×4 (09:30→22:13)
[2020-08-27 12:00] VITALS: BP 159/82
[2020-08-27] MEDS ORDERED: Magnesium 1GM/D5W 100ML PREMIX 100 ML IV SCH (12:30)
[2020-08-27 12:56] LABS: BASOPHILS % (AUTO) 0.2 % (0.0-2.0); EOSINOPHILS % (AUTO) 9.2 % (0.0-6.0); HEMATOCRIT 27 % (39-51); HEMOGLOBIN 8.5 g/dL (13.5-17.5); LYMPHOCYTES # (AUTO) 1.6 /CMM (0.8-4.8); LYMPHOCYTES % (AUTO) 11.5 % (20.0-44.0); MEAN CORPUSCULAR HGB CONC 32 g/dl (31.0-36.0); MEAN CORPUSCULAR VOLUME 89 fL (80-96); MONOCYTES # (AUTO) 0.5 /CMM (0.1-1.30); MONOCYTES % (AUTO) 3.6 % (2.0-12.0); NEUTROPHILS # (AUTO) 10.7 /CMM (1.8-8.9); NEUTROPHILS % (AUTO) 75.5 % (43.0-81.0); PLATELET COUNT (AUTO) 247 /CMM (150-450); RED BLOOD CELL COUNT(AUTO) 2.97 MIL/uL (4.5-6.0); WHITE BLOOD COUNT (AUTO) 14.2 K/uL (4.3-11.0)
[2020-08-27] MEDS ORDERED: POTASSIUM CHLORIDE 20 MEQ POWDER PACKET GT ONE (13:00)
[2020-08-27 16:00] VITALS: BP 152/80
[2020-08-27] MEDS: DOCUSATE SODIUM LIQ 100 MG/10 ML UDC GT SCH (17:43)
[2020-08-27] MEDS: THIAMINE HCL 100 MG TABLET GT SCH (17:44)
[2020-08-27] MEDS: EPOETIN ALFA (10,000 UNIT) 10,000 UNIT/ML VIAL SQ SCH (18:29)
--- NOTE | 2020-08-27 19:16 | NUR ---
RN NOTE RECEIVED PT A/OX 2IN BED RESTING COMFORTABLY IN SEMI PABLO'S POSITION.PATIENT IN NO S/SX OF ACUTE DISTRESS AT THIS TIME. NO SOB NOTED. PATIENT'S BREATHING IS EVEN AND UNLABORED. PATIENT IS ON (2) L OF OXYGEN VIA (NC); TOLERATING WELL. PATIENT ON TELE MONITORING UNCONTROLLED AFIB 109 NOTED HILDA MIDLINE PATENT, INTACT AND FLUSHING WELL; NO S/S OF INFECTION OR INFILTRATION. WITH IV FLUID RUNNING ORDERED. SAFETY MEASURES HAVE BEEN PROVIDED AND IMPLEMENTED. PATIENT BED ALARM IS ON. HEAD OF BED ELEVATED. BED IS LOCKED, IN LOWEST POSITION AND SIDE RAILS UP. CALL LIGHT WITHIN REACH OF THE PATIENT. APPLICABLE ISOLATION PRECAUTIONS IN PLACE. WILL CONTINUE TO MONITOR AND REASSESS FOR ANY CHANGES AND WILL CARRY OUT ANY ONGOING AND ACTIVE MD ORDER. Addendum: 08/27/20 at 2302 by SRI PORTER RN ERROR. WRONG PATIENT.
--- NOTE | 2020-08-27 19:20 | NUR ---
RN NOTE RECEIVED PATIENT IN NO S/SX OF ACUTE DISTRESS AT THIS TIME. NO SOB NOTED. PATIENT'S BREATHING IS EVEN AND UNLABORED.PATIENT ON MECHANICAL VENT; SETTINGS PRESCRIBED; PT TOLERATED WELL. AMBU BAG AT BED SIDE ALARMS SET PER PROTOCOL AND AUDIBLE. VENT PLUGGED IN TO RED OUTLET. NO DISTRESS NOTED. PATIENT ON TELE MONITORING READING SINUS RHYTHM HR NOTED GT CLAMPED AT THIS TIME. PLACEMENT VERIFIED WITH AUSCULTATION. NO RESIDUAL TAKEN AT THIS TIME. RESUMED TUBE FEEDING ORDERED. NOTED IV SITE ON RIGHT FEMORAL PICC.INTACT AND FLUSHING WELL; NO S/S OF INFECTION OR INFILTRATION. KNUTSON CATH IN PLACE, DRAINING URINE VIA GRAVITY. SAFETY MEASURES HAVE BEEN PROVIDED AND IMPLEMENTED. PATIENT BED ALARM IS ON. HEAD OF BED ELEVATED. BED IS LOCKED, IN LOWEST POSITION AND SIDE RAILS UP. APPLICABLE ISOLATION PRECAUTIONS IN PLACE. WILL CONTINUE TO MONITOR AND REASSESS FOR ANY CHANGES AND WILL CARRY OUT ANY ONGOING AND ACTIVE MD ORDER.
--- NOTE | 2020-08-27 19:38 | NUR ---
RN CLOSING NOTES PT IN BED, OPENS EYES. VENT SETTINGS TOLERATING WELL. NO SOB OR ANY DISTRESS. SPO2 @99%. SR IN TELE MONITOR. G-TUBE PLACEMENT VERIFIED VIA AUSCULTATION. RESIDUAL OF 80. FEEDING OF NEPRO @35ML/HR, ON HOLD. RIGHT FEMORAL IV SITE INTACT, PATENT AND FLUSHED. KNUTSON CATH DRAINING TORRES COLORED URINE TO GRAVITY OUTPUT. SAFETY MEASURES IN PLACE. CALL LIGHT WITHIN REACH. BED LOCKED AND IN LOWEST POSITION WITH SIDE RAILS UP X2. WILL ENDORSE TO NIGHT NURSE FOR HAMILTON.
[2020-08-27 20:00] VITALS: BP 133/71
--- NOTE | 2020-08-27 20:19 | NUR ---
RT NOTE Pt rec'd trached on [facility] vent on AC noted settings as charted. Pt shows no signs of resp distress or sob. Pt sx'd for thick mod amt of yellow secretions. Alarms are set and audible. ambu bag and emergency spare trach bedside. vent plugged into red outlet. will continue to monitor closely. Addendum: 08/27/20 at 2020 by BEN HURLEY RT Amended: Links added.
[2020-08-27] MEDS: MICAFUNGIN SODIUM 100 MG in IV NS 0.9% 100 ML IV SCH (22:13)
[2020-08-27] MEDS: INSULIN GLARGINE, 100 UNIT/ML CARTRIDGE SQ SCH (22:23)
[2020-08-28] VITALS: BP 132/89
[2020-08-28] MEDS: NEPRO 1,000 ML BOTTLE GT PRN (01:16)
[2020-08-28 04:00] VITALS: BP 119/70
--- NOTE | 2020-08-28 04:00 | NUR ---
RN NOTE NO CHANGE IN PATIENT CONDITION AT THIS TIME PATIENT VITALS STABLE, NO SIGNS OF ACUTE RESPIRATORY DISTRESS. WILL CONTINUE TO MONITOR AND REASSESS FOR ANY CHANGES THROUGHOUT THE SHIFT.
[2020-08-28] MEDS: METRONIDAZOLE 500 MG TABLET PO SCH ×3 (04:16→22:09)
[2020-08-28] MEDS: PANTOPRAZOLE 40 MG/PACK PACK GT SCH (05:35)
[2020-08-28] MEDS: BLOOD SUGAR DIAGNOSTIC 1 EACH STRIP IN SCH ×4 (05:57→23:17)
--- NOTE | 2020-08-28 06:52 | NUR ---
RN NOTE NO ACUTE CHANGES OBSERVED OVERNIGHT. PT REMAINS OBTUNDED BUT PHYSICALLY RESPONSIVE TO VERBAL AND TACTILE STIMULI. NO SOB NOTED. PATIENT'S BREATHING IS EVEN AND UNLABORED. PATIENT ON MECHANICAL VENT; SETTINGS PRESCRIBED; PT TOLERATED WELL. AMBU BAG AT BED SIDE ALARMS SET PER PROTOCOL AND AUDIBLE. VENT PLUGGED IN TO RED OUTLET. NO DISTRESS NOTED. PATIENT ON TELE MONITORING READING SINUS RHYTHM HR GT PATENT. PLACEMENT VERIFIED WITH AUSCULTATION. NO RESIDUAL NOTED. TUBE FEEDING RUNNING ORDERED. TUBE FEEDING ORDERED. RIGHT FEMORAL PICC LINE INTACT AND FLUSHING WELL; NO S/S OF INFECTION OR INFILTRATION. KNUTSON CATH IN PLACE DRAINING URINE VIA GRAVITY. ALL NEEDS MET AND ATTENDED TO, ALL DUE MEDICATIONS ADMINISTERED, PT KEPT CLEAN, REPOSITIONED Q2H FOR COMFORT. SAFETY MEASURES HAVE BEEN PROVIDED AND IMPLEMENTED. PATIENT BED ALARM IS ON. HEAD OF BED ELEVATED. BED IS LOCKED, IN LOWEST POSITION AND SIDE RAILS UP. APPLICABLE ISOLATION PRECAUTIONS IN PLACE. WILL ENDORSE TO MORNING RN FOR HAMILTON.
[2020-08-28 07:41] LABS: BASOPHILS % (AUTO) 0.3 % (0.0-2.0); EOSINOPHILS % (AUTO) 5.7 % (0.0-6.0); HEMATOCRIT 28 % (39-51); HEMOGLOBIN 9.3 g/dL (13.5-17.5); LYMPHOCYTES # (AUTO) 1.2 /CMM (0.8-4.8); LYMPHOCYTES % (AUTO) 11.8 % (20.0-44.0); MEAN CORPUSCULAR HGB CONC 33 g/dl (31.0-36.0); MEAN CORPUSCULAR VOLUME 89 fL (80-96); MONOCYTES # (AUTO) 0.6 /CMM (0.1-1.30); MONOCYTES % (AUTO) 5.8 % (2.0-12.0); NEUTROPHILS % (AUTO) 76.4 % (43.0-81.0); PLATELET COUNT (AUTO) 263 /CMM (150-450); RED BLOOD CELL COUNT(AUTO) 3.16 MIL/uL (4.5-6.0); WHITE BLOOD COUNT (AUTO) 10.4 K/uL (4.3-11.0)
[2020-08-28 07:51] LABS: CALCIUM, SERUM 7.4 mg/dL (8.5-10.1); CREATININE 1.4 mg/dL (0.6-1.3); MAGNESIUM 1.6 mg/dL (1.8-2.4); PHOSPHORUS 2.2 mg/dL (2.5-4.9)
[2020-08-28 07:55] LABS: POTASSIUM 2.1 mmol/L (3.5-5.1)
[2020-08-28 08:00] VITALS: BP_SYST 112; BP_SYST 142; BP_DIAS 62; BP_DIAS 78
[2020-08-28] MEDS: AMLODIPINE BESYLATE 10 MG TABLET GT SCH (09:07)
[2020-08-28] MEDS: CHOLECALCIFEROL 1,000 UNIT TABLET (VIT D3) GT SCH (09:08)
[2020-08-28] MEDS: HEPARIN SODIUM, PORCINE 5000 UNITS/1 ML VIAL SQ SCH ×2 (09:09→22:10)
[2020-08-28] MEDS: HYDROCORTISONE SOD SUCCINATE 100 MG/2 ML VIAL IV SCH ×2 (09:10→17:17)
[2020-08-28] MEDS: TERAZOSIN HCL 1 MG CAPSULE GT SCH (09:11)
[2020-08-28] MEDS: POTASSIUM CHLORIDE 20 MEQ POWDER PACKET GT SCH (09:12)
[2020-08-28] MEDS: LABETALOL HCL (100MG) 100 MG TABLET GT SCH ×2 (09:12→17:16)
[2020-08-28] MEDS: CITRIC ACID/SODIUM CITRATE (BICITRA)15 ML UDC GT SCH ×4 (09:12→22:09)
[2020-08-28] MEDS: CHLORHEXIDINE GLUCONATE 15 ML UDC MM SCH ×2 (09:12→22:09)
[2020-08-28] MEDS: POTASSIUM CL. PREMIX PERIPHER. 50 ML IV SCH ×7 (09:18→17:17)
[2020-08-28] MEDS: Magnesium 1GM/D5W 100ML PREMIX 100 ML IV SCH ×2 (12:10→13:47)
[2020-08-28] MEDS ORDERED: NEUTRA PHOS 1 POWD.PACKET GT ONE (13:00)
--- NOTE | 2020-08-28 14:12 | NUR ---
RT NOTE PT REMAINS MECHANICALLY VENTILATED VIA CUFFED TRACHEOSTOMY TUBE. CUFF INFLATED. TRACH TUBE MIDLINE AND SECURE. VENTILATOR SETTINGS PRESCRIBED. ALARMS SET PER PROTOCOL AND AUDIBLE. VENT PLUGGED IN TO RED OUTLET. AMBU BAG AND BACK UP TRACH AT BED SIDE. NO DISTRESS NOTED. Addendum: 08/28/20 at 1414 by MARY ROWLEY RT Amended: Links added.
[2020-08-28 14:47] VITALS: BP 135/75
[2020-08-28] MEDS: INSULIN REGULAR, HUMAN 100 UNIT/ML 3 ML VIAL SQ PRN ×3 (14:48→23:11)
[2020-08-28 16:04] LABS: CALCIUM, SERUM 7.7 mg/dL (8.5-10.1); CREATININE 1.4 mg/dL (0.6-1.3)
[2020-08-28 16:35] VITALS: BP 127/78
[2020-08-28] MEDS: THIAMINE HCL 100 MG TABLET GT SCH (17:17)
[2020-08-28] MEDS: DOCUSATE SODIUM LIQ 100 MG/10 ML UDC GT SCH (17:17)
--- NOTE | 2020-08-28 19:24 | NUR ---
RN CLOSING NOTE PATIENT IS IN BED WITH HOB AT SEMI FOWLERS POSITION. PATIENT IS ABLE TO OPEN EYES. KNUTSON CATHETER IS IN PLACE. GTUBE IN PLACE WITH NO RESIDUAL. FEMORAL PICC AND LFOREARM SL ARE PATENT AND HAVE NO SIGNS OF INFILTRATION. VENT/TRACH SETTINGS ARE APPLIED. BED IS LOCKED IN THE LOWEST POSITION, CALL SANTILLAN WITHIN REACH, 3 GUARD RAILS RAISED, AND ALL HOSPITAL SAFETY PRECAUTIONS ARE BEING FOLLOWED.
--- NOTE | 2020-08-28 19:52 | NUR ---
RT pt received on mechanical vent with current settings. vent plugged in to red outlet. trached, portex 7 cuffed. ambu bag at [facility]. no sob, no resp distress. thick moderate secretions suctioned via trach. will continue to monitor.
[2020-08-28 20:00] VITALS: BP 151/72
--- NOTE | 2020-08-28 20:00 | NUR ---
RN NOTES PATIENT IN BED EYE OPEN ON VENT SETTINGS TOLERATING WELL. NO SOB AT THIS TIME, SPO2 AT 96%. ON TELE SR ON THE MONITOR WITH G-TUBE PLACEMENT VERIFIED VIA AUSCULTATION. ON NEPRO @35ML/HR WITH NO RESIDUAL NOTED . RIGHT FEMORAL IV SITE INTACT AND FLUSHED WELL. NO S/S OF ANY INFILTRATION OR INFECTION. PT KNUTSON CATH DRAINING WITH YELLOW COLORED URINE TO GRAVITY OUTPUT . BED LOCKED AND IN LOWEST POSITION WITH SIDE RAILS UP X2. ALL SAFETY MEASURES IN PLACE. WILL ENDORSE TO ONCOMING SHIFT.SUCTION SECRETION DONE , TURNED AND REPOSITION Q 2 HRS .ALL NEEDS ATTENDED TOO.ALL DUE MEDS GIVEN ORDERED ,V/S STABLE AFEBRILE.WILL CONTINUE TO MONITOR PTS
[2020-08-28] MEDS: MICAFUNGIN SODIUM 100 MG in IV NS 0.9% 100 ML IV SCH (22:15)
[2020-08-28] MEDS ORDERED: POTASSIUM CHLORIDE 20 MEQ POWDER PACKET GT ONE (22:30)
[2020-08-28] MEDS: INSULIN GLARGINE, 100 UNIT/ML CARTRIDGE SQ SCH (23:16)
[2020-08-29] VITALS: BP 151/78
--- NOTE | 2020-08-29 | NUR ---
CUSTOMER EXPERIENCE STRATEGIST NOTES BLOOD SUGAR AT 12MN IS 131MMOL LANTUS 5 UNITS GIVEN ORDERED. AND 2 UNITS OF REGULAR INSULIN GIVEN PER SLIDING SCALE.
[2020-08-29 04:00] VITALS: BP 154/75
[2020-08-29] MEDS: METRONIDAZOLE 500 MG TABLET PO SCH ×2 (05:09→14:32)
[2020-08-29] MEDS: PANTOPRAZOLE 40 MG/PACK PACK GT SCH (05:10)
[2020-08-29] MEDS: NEPRO 1,000 ML BOTTLE GT PRN (05:12)
[2020-08-29] MEDS: INSULIN REGULAR, HUMAN 100 UNIT/ML 3 ML VIAL SQ PRN ×3 (05:26→18:00)
[2020-08-29] MEDS: BLOOD SUGAR DIAGNOSTIC 1 EACH STRIP IN SCH ×3 (05:26→17:41)
--- NOTE | 2020-08-29 05:28 | NUR ---
telecine operator notes blood sugar at 6am is 127 mmol no insulin coverage per sliding scale given.
--- NOTE | 2020-08-29 05:46 | NUR ---
RN CLOSING NOTE PATIENT IS IN BED AWAKE WITH EYES OPEN WITH HOB AT SEMI FOWLERS POSITION. KNUTSON CATHETER IS IN PLACE. GTUBE IN PLACE WITH NO RESIDUAL. FEMORAL PICC AND LEFT FOREARM SL ARE PATENT AND HAVE NO SIGNS OF INFILTRATION. VENT/TRACH SETTINGS ARE APPLIED. BED IS LOCKED IN THE LOWEST POSITION, CALL SANTILLAN WITHIN REACH, ALL HOSPITAL SAFETY PRECAUTIONS ARE BEING FOLLOWED. WELL ENDORSE TO RN DAY SHIFT FOR CONTINUITY OF CARE.
[2020-08-29 06:49] LABS: BASOPHILS # (AUTO) 0.1 /CMM (0.0-0.2); BASOPHILS % (AUTO) 1.2 % (0.0-2.0); EOSINOPHILS % (AUTO) 2.7 % (0.0-6.0); HEMATOCRIT 28 % (39-51); HEMOGLOBIN 9.3 g/dL (13.5-17.5); MEAN CORPUSCULAR HGB CONC 34 g/dl (31.0-36.0); MEAN CORPUSCULAR VOLUME 89 fL (80-96); MONOCYTES # (AUTO) 0.7 /CMM (0.1-1.30); MONOCYTES % (AUTO) 6.9 % (2.0-12.0); NEUTROPHILS # (AUTO) 8.1 /CMM (1.8-8.9); NEUTROPHILS % (AUTO) 79.2 % (43.0-81.0); PLATELET COUNT (AUTO) 270 /CMM (150-450); RED BLOOD CELL COUNT(AUTO) 3.09 MIL/uL (4.5-6.0); WHITE BLOOD COUNT (AUTO) 10.2 K/uL (4.3-11.0)
[2020-08-29 07:25] LABS: CALCIUM, SERUM 7.3 mg/dL (8.5-10.1); CREATININE 1.3 mg/dL (0.6-1.3); MAGNESIUM 1.9 mg/dL (1.8-2.4); PHOSPHORUS 1.9 mg/dL (2.5-4.9)
--- NOTE | 2020-08-29 07:25 | NUR ---
RN OPENING NOTE PATIENT RECEIVED IN BED AWAKE WITH EYES OPEN WITH HOB AT SEMI FOWLERS POSITION. KNUTSON CATHETER AND COLLECTING URINE. G-TUBE IN PLACE WITH NO RESIDUAL. NEPHRO CURRENTLY RUNNING AT 300 ML/HR. FEMORAL PICC AND LEFT FOREARM SL ARE PATENT AND HAVE NO SIGNS OF INFILTRATION. VENT/TRACH SETTINGS ARE APPLIED. BED IS LOCKED IN LOWEST POSITION, CALL SANTILLAN WITHIN REACH. WILL CONTINUE TO MONITOR CLIENT AND PROVIDE CARE THROUGHOUT SHIFT.
[2020-08-29 07:31] LABS: POTASSIUM 2.3 mmol/L (3.5-5.1)
[2020-08-29 08:00] VITALS: BP 121/82
[2020-08-29] MEDS ORDERED: POTASSIUM CHLORIDE 20 MEQ POWDER PACKET GT ONE (08:00)
[2020-08-29] MEDS: CITRIC ACID/SODIUM CITRATE (BICITRA)15 ML UDC GT SCH ×3 (08:48→17:11)
[2020-08-29] MEDS: CHOLECALCIFEROL 1,000 UNIT TABLET (VIT D3) GT SCH (08:49)
[2020-08-29] MEDS: CHLORHEXIDINE GLUCONATE 15 ML UDC MM SCH (08:50)
[2020-08-29] MEDS: HYDROCORTISONE SOD SUCCINATE 100 MG/2 ML VIAL IV SCH ×2 (08:50→17:12)
[2020-08-29] MEDS: HEPARIN SODIUM, PORCINE 5000 UNITS/1 ML VIAL SQ SCH (09:05)
[2020-08-29] MEDS: LABETALOL HCL (100MG) 100 MG TABLET GT SCH ×2 (09:06→17:12)
[2020-08-29] MEDS: POTASSIUM CHLORIDE 20 MEQ POWDER PACKET GT SCH (09:07)
[2020-08-29] MEDS: AMLODIPINE BESYLATE 10 MG TABLET GT SCH (09:07)
[2020-08-29] MEDS: TERAZOSIN HCL 1 MG CAPSULE GT SCH (09:07)
[2020-08-29] MEDS: POTASSIUM PHOSPHATE MM 7.5 MMOL in IV NS 0.9% 100 ML IV SCH ×2 (09:08→14:29)
[2020-08-29 09:42] LABS: EOSINOPHILS % (MANUAL) 3 % (0-4); LYMPHOCYTES % (MANUAL) 7 % (16-48); MONOCYTES % (MANUAL) 8 % (0-11.0); NEUTROPHILS % (MANUAL) 82 (42-76)
[2020-08-29 12:00] VITALS: BP 126/78
[2020-08-29] MEDS ORDERED: Hydrocortisone Sod Succinate IV (12:03)
[2020-08-29] MEDS ORDERED: HEPA50008 SQ (12:03)
[2020-08-29] MEDS ORDERED: LORA2VIA11 IV (12:03)
[2020-08-29] MEDS ORDERED: CITR15SO GT (12:03)
[2020-08-29] MEDS ORDERED: Nepro GT (12:03)
[2020-08-29 15:34] LABS: CALCIUM, SERUM 7.6 mg/dL (8.5-10.1); CREATININE 1.4 mg/dL (0.6-1.3); POTASSIUM 2.9 mmol/L (3.5-5.1)
[2020-08-29 16:00] VITALS: BP 121/84
[2020-08-29] MEDS: DOCUSATE SODIUM LIQ 100 MG/10 ML UDC GT SCH (17:11)
[2020-08-29 17:12] VITALS: BP 121/84
[2020-08-29] MEDS: THIAMINE HCL 100 MG TABLET GT SCH (17:12)
[2020-08-29] MEDS: EPOETIN ALFA (10,000 UNIT) 10,000 UNIT/ML VIAL SQ SCH (17:13)
--- NOTE | 2020-08-29 18:30 | NUR ---
Patient discharged from hospital to nursing facility. patient transported via ambulance and accompanied by RT. Patient d/c in stable condition.
== END 2020-08-29 18:48 | DRG 720 ==
LOC: ER 23:52 → TRANSITION 08-09 02:07 → OBSVTOIN 08-09 02:07 → TELE1 08-10 14:53 → ICUOV 08-11 08:37 → ICU 08-18 11:45 → TELE1 08-26 10:02
PROVIDERS: ADMIT Student in an Organized Health Care Education/Training Program; ATTEND Registered Nurse
PROC: 5A1955Z Respiratory Ventilation, Greater than 96 Consecutive Hours (ICD-10-PCS; 2020-08-10)
PROC: 06H033Z Insertion of Infusion Device into Inferior Vena Cava, Percutaneous Approach (ICD-10-PCS; principal; 2020-08-11)
PROC: B549ZZA Ultrasonography of Inferior Vena Cava, Guidance (ICD-10-PCS; 2020-08-11)
PROC: 06H033Z Insertion of Infusion Device into Inferior Vena Cava, Percutaneous Approach (ICD-10-PCS; 2020-08-27)
PROC: B549ZZA Ultrasonography of Inferior Vena Cava, Guidance (ICD-10-PCS; 2020-08-27)
DX: A41.89 Other specified sepsis (principal); U07.1 COVID-19; J12.82 Pneumonia due to coronavirus disease 2019; I21.A1 Myocardial infarction type 2; G92 Toxic encephalopathy; E43 Unspecified severe protein-calorie malnutrition; J96.21 Acute and chronic respiratory failure with hypoxia; N17.0 Acute kidney failure with tubular necrosis; N13.9 Obstructive and reflux uropathy, unspecified; N39.0 Urinary tract infection, site not specified; Z87.01 Personal history of pneumonia (recurrent); N18.9 Chronic kidney disease, unspecified; R53.2 Functional quadriplegia; D64.9 Anemia, unspecified; D68.69 Other thrombophilia; E11.22 Type 2 diabetes mellitus with diabetic chronic kidney disease; Z93.1 Gastrostomy status; E87.0 Hyperosmolality and hypernatremia; E87.2 Acidosis; G40.909 Epilepsy, unspecified, not intractable, without status epilepticus; J90 Pleural effusion, not elsewhere classified; R74.01 Elevation of levels of liver transaminase levels; E88.09 Other disorders of plasma-protein metabolism, not elsewhere classified; I12.9 Hypertensive chronic kidney disease with stage 1 through stage 4 chronic kidney disease, or unspecified chronic kidney disease; Z68.24 Body mass index [BMI] 24.0-24.9, adult; K22.70 Barrett's esophagus without dysplasia; Z22.322 Carrier or suspected carrier of Methicillin resistant Staphylococcus aureus; B96.89 Other specified bacterial agents as the cause of diseases classified elsewhere; B37.49 Other urogenital candidiasis; R65.21 Severe sepsis with septic shock; I13.0 Hypertensive heart and chronic kidney disease with heart failure and stage 1 through stage 4 chronic kidney disease, or unspecified chronic kidney disease; I50.9 Heart failure, unspecified; Z93.0 Tracheostomy status; E27.40 Unspecified adrenocortical insufficiency; E86.9 Volume depletion, unspecified; E87.6 Hypokalemia; Z79.4 Long term (current) use of insulin; Z79.82 Long term (current) use of aspirin; J15.9 Unspecified bacterial pneumonia
CPT/HCPCS: 31720; 36415; 36569; 36600; 71045-TC; 71250-TC; 74018; 76700-TC; 80048-TC; 80053-TC; 80076-TC; 80202-TC; 81001; 82150-TC; 82272-TC; 82533; 82550-TC; 82570-TC; 82728-TC; 82803-TC; 82962-TC; 83605-TC; 83615-TC; 83690-TC; 83735-TC; 83880; 84100-TC; 84132-TC; 84155-TC; 84300-TC; 84478-TC; 84484-TC; 85025-TC; 85378-TC; 85730-TC; 86140-TC; 87040-TC; 87081-TC; 87086-TC; 87186-TC; 94002-TC; 94003-TC; 94760-TC; 94762-TC; 94799-TC; 99082-TC; A4216; A4623; A6403; A7526; C1751; C9113; C9803; G0378; J0456; J0692; J0885; J1100; J1644; J1720; J1815; J2060; J2185; J2248; J2250; J2270; J2370; J2405; J2543; J3010; J3370; J3475; J3480; J3490; J7030; J7040; J7042; J7050; J7060; J7070; J8597; Q9963; U0003

== ENCOUNTER 2021-01-30 20:36 | Inpatient (IN) | payer MEDICAID ==
[~2021-01-30] VITALS: Ht 162.6 cm; Wt 57.6 kg
[~2021-01-30 20:36] MED LIST changes: -ALBU2.5V38 IH; +ALBU6.7H9 IH; -AMAN100C16 GT; -ASPI-1169 GT; -CHOL100062 GT; +CHOL400T11 GT; +CITR15SO GT; +ENOX40DI SQ; -FERR300L GT; +HEPA50008 SQ; +Hydrocortisone Sod Succinate IV; -IPRA3AMP23 IH; +LORA2VIA11 IV; +METO-295 GT; +Nepro GT; -PIPE3.379 IV
--- NOTE | 2021-01-30 20:52 | NUR ---
Patient came to er bed 5 for de anda catheter change. Dark blood with clots noted in the urine from currently catheter. Will change catheter per MD's order. Patient is AAOX0. Patient is contracted on the right extremities. Patient has a tracheostomy in place with 5L oxygen connected to the blow-by piece. Per rescue's report, patient's blood pressure was low. Will continue to monitor the patient's blood pressure. Patient connected to the school lunch monitor.
[2021-01-30] MEDS ORDERED: IV NS 0.9% 1,000 ML BAG IV ONE ×2 (21:00→22:00)
--- NOTE | 2021-01-30 21:10 | NUR ---
URINE COLLECTED AND SENT TO THE LAB.
--- NOTE | 2021-01-30 21:26 | NUR ---
COVID PCR COLLECTED AND SENT TO THE LAB.
[2021-01-30 21:29] LABS: BASOPHILS % (AUTO) 0.2 % (0.0-2.0); EOSINOPHILS % (AUTO) 1.1 % (0.0-6.0); HEMATOCRIT 32 % (39-51); HEMOGLOBIN 10.1 g/dL (13.5-17.5); LYMPHOCYTES # (AUTO) 1.4 K/uL (0.8-4.8); LYMPHOCYTES % (AUTO) 7.2 % (20.0-44.0); MEAN CORPUSCULAR HGB CONC 31 g/dl (31.0-36.0); MEAN CORPUSCULAR VOLUME 86 fL (80-96); MONOCYTES # (AUTO) 0.8 K/uL (0.1-1.30); MONOCYTES % (AUTO) 4.2 % (2.0-12.0); NEUTROPHILS # (AUTO) 16.7 K/uL (1.8-8.9); NEUTROPHILS % (AUTO) 87.3 % (43.0-81.0); PLATELET COUNT (AUTO) 427 K/uL (150-450); RED BLOOD CELL COUNT(AUTO) 3.72 MIL/uL (4.5-6.0); WHITE BLOOD COUNT (AUTO) 19.1 K/uL (4.3-11.0)
--- NOTE | 2021-01-30 21:30 | NUR ---
[facility] medical group investigations consultant paged via exchange
[2021-01-30 21:38] LABS: CALCIUM, SERUM 8.9 mg/dL (8.5-10.1); CREATININE 4.2 mg/dL (0.6-1.3)
[2021-01-30 21:41] LABS: POTASSIUM 7.4 mmol/L (3.5-5.1)
[2021-01-30 21:42] LABS: COLOR,URINE RED (YELLOW)
[2021-01-30 21:43] LABS: ALBUMIN 2.4 g/dL (3.4-5.0); BILIRUBIN,DIRECT 0.1 mg/dL (0.0-0.2); BILIRUBIN,TOTAL 0.4 mg/dL (0.2-1.0)
[2021-01-30 21:46] LABS: BACTERIA,URINE 3+ /HPF (None Seen); RBC,URINE TOO NUMEROUS TO COUN /HPF (0-2); SQUAMOUS EPITHELIAL CELL,UR 0-2 /HPF (None Seen); WBC,URINE 21-50 /HPF (0-3)
[2021-01-30 21:58] LABS: BAND % (MANUAL) 23 % (0.0-5.0); LYMPHOCYTES % (MANUAL) 10 % (16-48); MONOCYTES % (MANUAL) 2 % (0-11.0); NEUTROPHILS % (MANUAL) 65 (42-76)
[2021-01-30] MEDS ORDERED: CEFEPIME 1 GM in IV D5W 50 ML IV ONE (22:00)
[2021-01-30] MEDS ORDERED: MAGNESIUM HYDROXIDE 30 ML UDC PO PRN (22:00)
[2021-01-30] MEDS ORDERED: MAG HYDROX/AL HYDROX/SIMETH 30 ML UDC PO PRN (22:00)
[2021-01-30] MEDS ORDERED: NA PHOS,M-B/NA PHOS,DI-BA 1 EA ENEMA RC PRN (22:00)
[2021-01-30] MEDS ORDERED: IV 1/2NS 1000 ML 1,000 ML IV PRN (22:00)
[2021-01-30] MEDS ORDERED: METOCLOPRAMIDE HCL 10 MG TABLET GT PRN (22:00)
[2021-01-30] MEDS ORDERED: CALCIUM CHLORIDE 1,000 MG/10 ML DISP.SYRIN IV ONE (22:00)
[2021-01-30] MEDS ORDERED: ONDANSETRON HCL/PF 4 MG/2 ML VIAL IVP PRN (22:00)
[2021-01-30] MEDS ORDERED: ALBUTEROL FS 2.5 MG/3 ML VIAL.NEB CONTNEB ONE (22:00)
[2021-01-30] MEDS ORDERED: INSULIN REGULAR, HUMAN 100 UNIT/ML 10 ML VIAL IV ONE (22:00)
[2021-01-30] MEDS ORDERED: ALBUTEROL SULFATE INH 18 GM HFA.AER.AD IH PRN (22:00)
[2021-01-30] MEDS ORDERED: NEPRO VAN 237 ML CAN GT SCH (22:00)
[2021-01-30] MEDS ORDERED: DEXTROSE 50%-WATER 50 ML DISP.SYRIN IV PRN (22:00)
[2021-01-30] MEDS ORDERED: DEXTROSE 50%-WATER 50 ML DISP.SYRIN IVP ONE (22:00)
[2021-01-30] MEDS ORDERED: Z GUARD REMEDY 2 OZ OINT TP PRN (22:00)
[2021-01-30] MEDS ORDERED: MAGNESIUM HYDROXIDE 30 ML UDC GT PRN (22:00)
[2021-01-30] MEDS ORDERED: CEFEPIME 1 GM VIAL ONE (22:05)
--- NOTE | 2021-01-30 22:24 | NUR ---
Report given to the floor nurse for the hyerkalemia: calcium chloride 1 amp IVP x 1 Insulin 8 units IVP x 1 D50 IVP x 1
--- NOTE | 2021-01-30 22:59 | NUR ---
INFO ANALYST NOTES PT ARRIVED TO UNIT ACCOMPANIED BY RT AND ER VIA GURNEY. PT AWAKE PT NON VERBAL NO SIGNS OF PAIN OR DISCOMFORT VISIBLE. PT HAS T PIECE PORTEX 7 WITH COOL AEROSOL AND 5 L OF OXYGEN. PT TOLERATING WELL. ALL NURSING NEEDS MET AT THIS TIME. PT HAS SACRUM LOWER BACK, AND SCROTAL MASD PHOTOS TAKEN AND WOUND CONSULT ORDERED SKIN CLEANSED WITH NS AND PAT DRY. PT HAS A KNUTSON CATHETER INTACT WITH URINE OUTPUT PT HAS HEMATURIA WITH SOME CLOTS NOTED.NO ABDOMINAL DISTENTION NOTED. SKIN IS WARM AND DRY TO THE TOUCH. PT HAS IV ACCESS ON THE L FOREARM 20 G PATENT INTACT NO REDNESS OR SWELLING NOTED AT SITE.. SAFETY MEASURES FOLLOWED AT ALL TIMES CALL LIGHT WITHIN REACH. BILATERAL SIDE RAILS UP BED LOCKED IN POSITION. HOB ELEVATED. BED ALARM ON. PT PUT ON TELE MONITOR. WILL CONTINUE TO MONITOR.
[2021-01-30] MEDS ORDERED: MEROPENEM 500 MG in IV NS 0.9% 50 ML IV ONE (23:45)
[2021-01-30] MEDS ORDERED: MEROPENEM 500 MG VIAL IV ONE (23:52)
[2021-01-31] VITALS (7 sets, daily range): BP systolic 81–108; BP diastolic 42–70
--- NOTE | 2021-01-31 | NUR ---
IRON BENDER NOTES PT SCHEDULED AQ CHECK DONE PT BLPOOD SUGAR CRITICALLY LOW PRN DEXTROSE ADMINISTERED AND RECEIVED OR SURESH TO CHANGE PT IV FLUIDS TO D5 NS ORDER NOTED AND CARRIED OUT. WILL CONTINUE TO MONITOR.
[2021-01-31] MEDS ORDERED: IV D5/ 0.9% NACL 1,000 ML IV ONE (00:30)
[2021-01-31] MEDS ORDERED: ALBUTEROL SULFATE INH 18 GM HFA.AER.AD IH PRN (00:30)
[2021-01-31] MEDS: BLOOD SUGAR DIAGNOSTIC 1 EACH STRIP IN SCH ×4 (00:33→18:00)
--- NOTE | 2021-01-31 00:56 | NUR ---
ASSEMBLER PRODUCT NOTES PTS BLOOD GLUCOSE RE CHECKED BLOOD SUGAR IS 158 WILL CONTINUE TO MONITOR.
[2021-01-31] MEDS ORDERED: SODIUM POLYSTYRENE SULFONATE 15 G/60 ML BOTTLE PO ONE (01:00)
[2021-01-31] MEDS ORDERED: SODIUM POLYSTYRENE SULFONATE 15 G/60 ML BOTTLE ONE (01:33)
[2021-01-31] MEDS: NEPRO 1,000 ML BOTTLE GT PRN (03:00)
[2021-01-31] MEDS: LORAZEPAM INJ 2 MG/ML VIAL IV PRN ×2 (04:16→06:34)
--- NOTE | 2021-01-31 06:53 | NUR ---
UNIT AID NOTES PT ASLEEP BUT ABLE TO BE WOKEN UP EASILY PT NON VERBAL NO SIGNS OF PAIN OR DISCOMFORT VISIBLE. PT HAS T PIECE PORTEX 7 WITH COOL AEROSOL AND 5 L OF OXYGEN. PT TOLERATING WELL. ALL NURSING NEEDS MET AT THIS TIME. PT HAS SACRUM LOWER BACK, AND SCROTAL MASD PHOTOS TAKEN AND WOUND CONSULT ORDERED SKIN CLEANSED WITH NS AND PAT DRY. PT HAS A KNUTSON CATHETER INTACT. PT HAS IV ACCESS ON THE L FOREARM 20 G PATENT INTACT NO REDNESS OR SWELLING NOTED AT SITE..SAFETY MEASURES FOLLOWED AT ALL TIMES CALL LIGHT WITHIN REACH. BILATERAL SIDE RAILS UP BED LOCKED IN POSITION. HOB ELEVATED. BED ALARM ON. ALL DUE MEDS GIVEN AND TOLERATED WELL. WILL ENDORSE CARE TO DAY SHIFT NURSE.
[2021-01-31] MEDS ORDERED: VANCOMYCIN 1 GM in IV D5W 250ml IV ONE (07:00)
[2021-01-31] MEDS ORDERED: ALBUTEROL FS 2.5 MG/3 ML VIAL.NEB NEB PRN (07:00)
[2021-01-31] MEDS ORDERED: VANCOMYCIN 1 GM VIAL ONE (07:01)
[2021-01-31 07:13] LABS: BASOPHILS % (AUTO) 0.2 % (0.0-2.0); EOSINOPHILS % (AUTO) 2.4 % (0.0-6.0); HEMATOCRIT 33 % (39-51); HEMOGLOBIN 9.8 g/dL (13.5-17.5); LYMPHOCYTES # (AUTO) 1.2 K/uL (0.8-4.8); LYMPHOCYTES % (AUTO) 9.6 % (20.0-44.0); MEAN CORPUSCULAR HGB CONC 30 g/dl (31.0-36.0); MEAN CORPUSCULAR VOLUME 88 fL (80-96); MONOCYTES # (AUTO) 0.3 K/uL (0.1-1.30); MONOCYTES % (AUTO) 2.7 % (2.0-12.0); NEUTROPHILS # (AUTO) 10.3 K/uL (1.8-8.9); NEUTROPHILS % (AUTO) 85.1 % (43.0-81.0); PLATELET COUNT (AUTO) 420 K/uL (150-450); RED BLOOD CELL COUNT(AUTO) 3.68 MIL/uL (4.5-6.0); WHITE BLOOD COUNT (AUTO) 12.1 K/uL (4.3-11.0)
[2021-01-31 07:42] LABS: CALCIUM, SERUM 9.2 mg/dL (8.5-10.1); CARBON DIOXIDE 20 mmol/L (21-32); CHLORIDE 111 mmol/L (98-107); CREATININE 3.2 mg/dL (0.6-1.3); GLUCOSE 121 mg/dL (74-106); MAGNESIUM 2.7 mg/dL (1.8-2.4); PHOSPHORUS 3.8 mg/dL (2.5-4.9); POTASSIUM 5.7 mmol/L (3.5-5.1); SODIUM SERUM 143 mmol/L (136-145); UREA NITROGEN, BLOOD 68 mg/dL (7-18)
--- NOTE | 2021-01-31 07:50 | NUR ---
BUDDER OPENING NOTE PATIENT IS IN BED RESTING, PATIENT IS ON TRACH WITH COOL AEROSOL, SATURATING WELL. PATIENT IS ON TELE MONITOR READING ST 100s. PATIENT TIS ON KNUTSON CATHETER. PATIENT IS ON G-TUBE RUNNING NEPHRO @35ML/HR. SAFETY PRECAUTIONS ARE ON, BED IS LOCKED IN THE LOWEST POSITION WITH SIDE RAILS UP, CALL LIGHT WITHIN REACH, WILL CONTINUE TO MONITOR CLOSELY.
[2021-01-31] MEDS: ALBUTEROL FS 2.5 MG/3 ML VIAL.NEB NEB SCH ×3 (07:56→19:30)
[2021-01-31] MEDS ORDERED: ALBUTEROL SULFATE INH 18 GM HFA.AER.AD IH SCH ×3 (08:00)
[2021-01-31] MEDS: PANTOPRAZOLE 40 MG/PACK PACK GT SCH (08:54)
[2021-01-31] MEDS: CITRIC ACID/SODIUM CITRATE (BICITRA)15 ML UDC GT SCH ×4 (08:54→20:46)
[2021-01-31] MEDS: LABETALOL HCL (100MG) 100 MG TABLET GT SCH ×2 (08:55→17:00)
[2021-01-31] MEDS: CHOLECALCIFEROL 1,000 UNIT TABLET (VIT D3) GT SCH (08:56)
[2021-01-31] MEDS: AMLODIPINE BESYLATE 10 MG TABLET GT SCH (08:56)
[2021-01-31] MEDS: TERAZOSIN HCL 1 MG CAPSULE GT SCH (08:56)
[2021-01-31] MEDS: APIXABAN 2.5 MG TABLET GT SCH ×2 (08:57→17:23)
[2021-01-31] MEDS ORDERED: PREVACID (NF) 30 MG TAB GT SCH (09:00)
[2021-01-31] MEDS ORDERED: Medication Not On Formulary EA (Omega-3 Fatty Acids/Fish Oil (Fish Oil 1,000 Mg Capsule) GT SCH (09:00)
[2021-01-31] MEDS: GEMFIBROZIL 600 MG TABLET GT SCH ×2 (09:01→20:46)
[2021-01-31] MEDS: MEROPENEM 500 MG in IV NS 0.9% 50 ML IV SCH (12:08)
[2021-01-31] MEDS: ACETAMINOPHEN 325 MG TABLET PO PRN (12:09)
--- NOTE | 2021-01-31 12:09 | NUR ---
DIRECTOR APPOINTMENT NOTE PATIENT HAS A TEMP OIF 101.4 Addendum: 01/31/21 at 1211 by JELLY BILLINGS RN DIRECTOR APPOINTMENT NOTE PATIENT HAS A TEMPERATURE OF 101.4, TYLENOL GIVEN, PATIENTS HEART RATE IS 130, AND LACTIC ACID IS 2.8, MADE MD FOWLER AWARE.
[2021-01-31] MEDS ORDERED: IV NS 0.9% 1,000 ML IV ONE (12:30)
[2021-01-31] MEDS: INSULIN REGULAR, HUMAN 100 UNIT/ML 3 ML VIAL SQ PRN ×2 (13:26→18:00)
--- NOTE | 2021-01-31 14:05 | NUR ---
FLUID DYNAMICIST NOTE PATIENTS TEMPERATURE WENT DOWN, DR. MALCOLM REED PLACED AN ORDER FOR 1000ML OF NS BOLUS TO INCREASE BLOOD PRESSURE.
[2021-01-31 14:10] LABS: CALCIUM, SERUM 8.6 mg/dL (8.5-10.1); POTASSIUM 4.6 mmol/L (3.5-5.1)
[2021-01-31] MEDS: IV D5/0.45 NACL 1,000 ML IV PRN (15:46)
[2021-01-31] MEDS: DOCUSATE SODIUM LIQ 100 MG/10 ML UDC GT SCH (17:21)
[2021-01-31] MEDS: THIAMINE HCL 100 MG TABLET GT SCH (17:21)
--- NOTE | 2021-01-31 19:39 | NUR ---
BRONC BREAKER CLOSING NOTE PATIENT IS IN BED RESTING, PATIENT IS ON TRACH WITH COOL AEROSOL, SATURATING WELL. PATIENT IS ON TELE MONITOR READING ST 130s. PATIENT IS ON KNUTSON CATHETER. PATIENT IS ON G-TUBE RUNNING NEPHRO @35ML/HR. SAFETY PRECAUTIONS ARE ON, BED IS LOCKED IN THE LOWEST POSITION WITH SIDE RAILS UP, CALL LIGHT WITHIN REACH, ENDORSE PATIENT TO MAINFRAME SYSTEMS ADMINISTRATOR NURSE FOR HAMILTON.
--- NOTE | 2021-01-31 19:55 | NUR ---
RT NOTE TX NOT GIVEN DUE TO PENDING PCR RESULTS. NO DISTRESS NOTED AT THIS TIME. WILL MONITOR.
--- NOTE | 2021-01-31 19:56 | NUR ---
RN NOTE PATIENT IN BED, NON VERBAL. OPENS EYES. ON TRACH WITH COOL AEROSOL, 5L OXYGEN. RESPIRATIONS EVEN AND UNLABORED. NO SIGNS OF DISTRESS. TELE MONITOR ON, READING ST 120'S. NO SIGNS OF PAIN OR DISCOMFORT. KNUTSON CATHETER NOTED DRAINING YELLOW CLEAR URINE. LEFT HAND MITTEN NOTED, SKIN AND CIRCULATIONS ASSESSED. NO SIGNS OF SKIN BREAKDOWN. G-TUBE RUNNING NEPRO @ 35ML/HR, NO RESIDUAL NOTED. IV ACCESS ON LEFT FOREARM RUNNING D5 1/2NS @ 70ML/HR, NO SIGNS OF INFILTRATION. HEAD OF BED ELEVATED. BED LOCKED AND IN LOWEST POSITION. CALL LIGHT WITHIN REACH. SAFETY MEASURES MAINTAINED. ALL NEEDS ANTICIPATED.
[2021-02-01] VITALS: BP 129/61
[2021-02-01] MEDS: BLOOD SUGAR DIAGNOSTIC 1 EACH STRIP IN SCH ×5 (00:07→23:42)
[2021-02-01] MEDS: INSULIN REGULAR, HUMAN 100 UNIT/ML 3 ML VIAL SQ PRN ×3 (00:08→12:32)
[2021-02-01] MEDS: MEROPENEM 500 MG in IV NS 0.9% 50 ML IV SCH ×2 (00:08→12:29)
[2021-02-01] MEDS: ALBUTEROL FS 2.5 MG/3 ML VIAL.NEB NEB SCH ×4 (01:21→19:27)
[2021-02-01 04:00] VITALS: BP 118/68
[2021-02-01] MEDS: ACETAMINOPHEN 325 MG TABLET PO PRN (04:10)
--- NOTE | 2021-02-01 04:12 | NUR ---
PATIENT NOTED WITH TEMP 101.3 AND HR 142. COOLING MEASURES PROVIDED AND ADMINISTERED TYLENOL PRN ORDERED. WILL CONTINUE TO MONITOR.
--- NOTE | 2021-02-01 06:35 | NUR ---
RN NOTE PATIENT IN BED, NON VERBAL. OPENS EYES. ON TRACH 4L OXYGEN, O2 SAT 100%. RESPIRATIONS EVEN AND UNLABORED. NO SIGNS OF DISTRESS. TELE MONITOR ON, READING ST 115-120'S. NO SIGNS OF PAIN. KNUTSON CATHETER NOTED DRAINING YELLOW CLEAR URINE OUTPUT 1100.. LEFT HAND MITTEN NOTED, SKIN AND CIRCULATIONS ASSESSED. NO SIGNS OF SKIN BREAKDOWN. G-TUBE RUNNING NEPRO @ 35ML/HR, NO RESIDUAL NOTED. IV ACCESS ON RIGHT HAND #24 RUNNING D5 1/2NS @ 70ML/HR, NO SIGNS OF INFILTRATION. RECEIVED ORDER FROM ADRI HAHN FOR MIDLINE INSERTION, NOTED AND CARRIED OUT. HEAD OF BED ELEVATED. BED LOCKED AND IN LOWEST POSITION. CALL LIGHT WITHIN REACH. SAFETY MEASURES MAINTAINED. WILL ENDORSE TO AM SHIFT.
[2021-02-01 06:36] LABS: BASOPHILS % (AUTO) 0.1 % (0.0-2.0); EOSINOPHILS % (AUTO) 6.9 % (0.0-6.0); HEMATOCRIT 25 % (39-51); HEMOGLOBIN 7.7 g/dL (13.5-17.5); LYMPHOCYTES # (AUTO) 1.2 K/uL (0.8-4.8); LYMPHOCYTES % (AUTO) 8.2 % (20.0-44.0); MEAN CORPUSCULAR HGB CONC 32 g/dl (31.0-36.0); MEAN CORPUSCULAR VOLUME 86 fL (80-96); MONOCYTES # (AUTO) 0.6 K/uL (0.1-1.30); MONOCYTES % (AUTO) 3.8 % (2.0-12.0); NEUTROPHILS # (AUTO) 12.4 K/uL (1.8-8.9); PLATELET COUNT (AUTO) 439 K/uL (150-450); RED BLOOD CELL COUNT(AUTO) 2.84 MIL/uL (4.5-6.0); WHITE BLOOD COUNT (AUTO) 15.3 K/uL (4.3-11.0)
[2021-02-01 07:13] LABS: ALBUMIN 1.7 g/dL (3.4-5.0); BILIRUBIN,TOTAL 0.3 mg/dL (0.2-1.0); CALCIUM, SERUM 8.9 mg/dL (8.5-10.1); CREATININE 2.6 mg/dL (0.6-1.3); MAGNESIUM 2.3 mg/dL (1.8-2.4); PHOSPHORUS 2.7 mg/dL (2.5-4.9); POTASSIUM 3.4 mmol/L (3.5-5.1); TOTAL PROTEIN, SERUM 6.8 g/dL (6.4-8.2)
--- NOTE | 2021-02-01 07:58 | NUR ---
NUTRITIONIST OPENING NOTE RECEIVED PATIENT IN BED AWAKE, ABLE TO OPEN EYES, NON-VERBAL. PATIENT IS ON TELE MONITOR READING ST 100s. PATIENT IS ON KNUTSON CATHETER, DRAINING YELLOW CLEAR URINE. PATIENT IS ON G-TUBE RUNNING NEPHRO @35ML/HR. SAFETY PRECAUTIONS ARE IN PLACE, BED IS LOCKED IN THE LOWEST POSITION WITH SIDE RAILS UP, CALL LIGHT WITHIN REACH, WILL CONTINUE TO MONITOR THROUGHOUT SHIFT.
[2021-02-01 08:00] VITALS: BP 111/63
[2021-02-01] MEDS: GEMFIBROZIL 600 MG TABLET GT SCH ×2 (09:12→21:07)
[2021-02-01] MEDS: CITRIC ACID/SODIUM CITRATE (BICITRA)15 ML UDC GT SCH ×3 (09:12→16:18)
[2021-02-01] MEDS: CHOLECALCIFEROL 1,000 UNIT TABLET (VIT D3) GT SCH (09:13)
[2021-02-01] MEDS: LABETALOL HCL (100MG) 100 MG TABLET GT SCH ×2 (09:13→16:19)
[2021-02-01] MEDS: TERAZOSIN HCL 1 MG CAPSULE GT SCH (09:13)
[2021-02-01] MEDS: PANTOPRAZOLE 40 MG/PACK PACK GT SCH (09:15)
[2021-02-01] MEDS: AMLODIPINE BESYLATE 10 MG TABLET GT SCH (09:18)
[2021-02-01] MEDS: APIXABAN 2.5 MG TABLET GT SCH ×2 (09:25→16:24)
[2021-02-01] MEDS: IV D5/0.45 NACL 1,000 ML IV PRN (09:51)
[2021-02-01] MEDS ORDERED: POTASSIUM CHLORIDE 20 MEQ POWDER PACKET GT ONE (11:30)
[2021-02-01 12:00] VITALS: BP 95/53
[2021-02-01] MEDS ORDERED: IV 1/2NS 1000 ML 1,000 ML IV PRN (12:00)
[2021-02-01] MEDS ORDERED: POTASSIUM CL. PREMIX PERIPHER. 100 ML ONE (12:20)
[2021-02-01] MEDS: POTASSIUM CL. PREMIX PERIPHER. 50 ML IV SCH ×2 (12:29→13:22)
[2021-02-01] MEDS ORDERED: VANCOMYCIN 1 GM in IV D5W 250ml IV SCH (13:00)
[2021-02-01 16:08] VITALS: BP 101/45
[2021-02-01] MEDS: DOCUSATE SODIUM LIQ 100 MG/10 ML UDC GT SCH (16:18)
[2021-02-01] MEDS ORDERED: CRAN3875 GT (16:51)
[2021-02-01] MEDS ORDERED: AMIN30LI2 GT (16:51)
[2021-02-01] MEDS ORDERED: DIPH25CA51 GT (16:51)
[2021-02-01] MEDS ORDERED: SACC250C GT (16:51)
[2021-02-01] MEDS ORDERED: ASCO-352 GT (16:51)
[2021-02-01] MEDS ORDERED: TRAM50TA2 GT (16:51)
[2021-02-01] MEDS: THIAMINE HCL 100 MG TABLET GT SCH (18:00)
--- NOTE | 2021-02-01 19:30 | NUR ---
RN Opening Notes Patient was seen sleeping in bed. Patient is able to open his eyes and is non-verbal. Patient's in no respiratory distress. Patient's on a tele monitor in no cardiac distress. Patient has a de anda catheter. Patient is on a g-tube running nephro at 35 ml/hr. Safety measures are in place: Bed is locked, bed alarm is on, side rails are up x3, and call light is within reach of the patient. Will continue to monitor the patient. Addendum: 02/01/21 at 1939 by MAXX PAK RN Patient has an IV access on his R hand gauge #24, which is intact and patent.
--- NOTE | 2021-02-01 19:36 | NUR ---
[place]Y COUNTY CLERK CLOSING NOTE PATIENT IN BED AWAKE, ABLE TO OPEN EYES, NON-VERBAL. PATIENT IS ON TELE MONITOR READING ST 100s. PATIENT IS ON KNUTSON CATHETER, DRAINING YELLOW CLEAR URINE. PATIENT IS ON G-TUBE RUNNING NEPHRO @35ML/HR. SAFETY PRECAUTIONS ARE IN PLACE, BED IS LOCKED IN THE LOWEST POSITION WITH SIDE RAILS UP, CALL LIGHT WITHIN REACH, WILL ENDORSE CONTINUITY OF CARE TO ONCOMING SHIFT.
[2021-02-01 20:31] VITALS: BP 110/62
--- NOTE | 2021-02-01 23:21 | NUR ---
RN Notes Patient's blood sugar is 130 mg/dL at 2314. Will continue to monitor the patient.
[2021-02-02] VITALS: BP 117/65
[2021-02-02] MEDS: MEROPENEM 500 MG in IV NS 0.9% 50 ML IV SCH ×2 (01:05→14:07)
[2021-02-02] MEDS: ALBUTEROL FS 2.5 MG/3 ML VIAL.NEB NEB SCH ×4 (01:16→20:36)
[2021-02-02 04:00] VITALS: BP_SYST 123; BP_SYST 126; BP_DIAS 70; BP_DIAS 72
[2021-02-02] MEDS: BLOOD SUGAR DIAGNOSTIC 1 EACH STRIP IN SCH ×3 (05:41→17:19)
--- NOTE | 2021-02-02 05:45 | NUR ---
RN Notes Patient's blood sugar at 0517 was 137 mg/dL. Will continue to monitor the patient.
[2021-02-02] MEDS: INSULIN REGULAR, HUMAN 100 UNIT/ML 3 ML VIAL SQ PRN ×2 (05:47→17:19)
[2021-02-02 06:54] LABS: EOSINOPHILS % (AUTO) 5.8 % (0.0-6.0); HEMATOCRIT 30 % (39-51); HEMOGLOBIN 9.4 g/dL (13.5-17.5); LYMPHOCYTES # (AUTO) 1.5 K/uL (0.8-4.8); LYMPHOCYTES % (AUTO) 10.5 % (20.0-44.0); MEAN CORPUSCULAR HGB CONC 31 g/dl (31.0-36.0); MEAN CORPUSCULAR VOLUME 87 fL (80-96); MONOCYTES # (AUTO) 0.8 K/uL (0.1-1.30); MONOCYTES % (AUTO) 5.7 % (2.0-12.0); NEUTROPHILS # (AUTO) 11.3 K/uL (1.8-8.9); PLATELET COUNT (AUTO) 458 K/uL (150-450); RED BLOOD CELL COUNT(AUTO) 3.49 MIL/uL (4.5-6.0); WHITE BLOOD COUNT (AUTO) 14.5 K/uL (4.3-11.0)
[2021-02-02 07:21] LABS: CALCIUM, SERUM 9.9 mg/dL (8.5-10.1); MAGNESIUM 2.3 mg/dL (1.8-2.4); PHOSPHORUS 2.4 mg/dL (2.5-4.9); POTASSIUM 3.3 mmol/L (3.5-5.1)
--- NOTE | 2021-02-02 07:45 | NUR ---
RT PATIENT REC'D TRACHED ON T-PIECE 3L IN LINE. FIO2 TITRATED DOWN TO 1L. SPO2 100% PATIENT SUCTIONED WITH MOD AMT [place] SECRETIONS. NO DISTRESS NOTED Addendum: 02/02/21 at 0827 by BRANDIE MEZA RT Amended: Links added.
--- NOTE | 2021-02-02 07:45 | NUR ---
RN NOTE PATIENT IS IN BED WITH HOB AT SEMI FOWLERS POSITION. PATIENT IS ON TPIECE 1L WITH NO SIGNS OF LABORED BREATHING. PATIENT IS AOX0. KNUTSON CATHETER IS IN PLACE DRAINING CLEAR YELLOW URINE. GTUBE IS IN PLACE. BED IS LOCKED IN THE LOWEST POSITION, 3 GUARD RAILS RAISED, CALL SANTILLAN WITHIN REACH, AND ALL HOSPITAL SAFETY PRECAUTIONS ARE BEING FOLLOWED. WILL CONTINUE TO MONITOR THROUGHOUT SHIFT.
[2021-02-02 08:00] VITALS: BP 142/73
--- NOTE | 2021-02-02 08:02 | NUR ---
RN Closing Notes Patient was seen sleeping in bed. Patient is able to open his eyes and is non-verbal. Patient's in no respiratory distress. Patient's on a tele monitor in no cardiac distress. Patient has a de anda catheter. Patient is on a g-tube running nephro at 35 ml/hr. Patient's in no acute distress at this time. Safety measures are in place: Bed is locked, bed alarm is on, side rails are up x3, and call light is within reach of the patient. Endorsed care to the day shift nurse.
[2021-02-02] MEDS: CHOLECALCIFEROL 1,000 UNIT TABLET (VIT D3) GT SCH (09:03)
[2021-02-02] MEDS: TERAZOSIN HCL 1 MG CAPSULE GT SCH (09:03)
[2021-02-02] MEDS: LABETALOL HCL (100MG) 100 MG TABLET GT SCH ×2 (09:03→16:33)
[2021-02-02] MEDS: AMLODIPINE BESYLATE 10 MG TABLET GT SCH (09:03)
[2021-02-02] MEDS: PANTOPRAZOLE 40 MG/PACK PACK GT SCH (09:04)
[2021-02-02] MEDS: APIXABAN 2.5 MG TABLET GT SCH ×2 (09:05→16:34)
[2021-02-02] MEDS: GEMFIBROZIL 600 MG TABLET GT SCH ×2 (09:10→21:05)
--- NOTE | 2021-02-02 10:00 | NUR ---
RN NOTE FLUSHED 250CC VIA GTUBE PER MD ORDER
--- NOTE | 2021-02-02 10:51 | NUR ---
WOUND CARE CONSULT: PT PRESENTS WITH HEALING STAGE 4 ULCER TO SACRUM WITH SCARRING, PRESENT ON ADMISSION. DR ANDERSON FOLLOWING PT FOR SACRUM. RECOMMENDATIONS MADE FOR SKIN PROTECTION. DISCUSSED WITH NURSING STAFF. IN AGREEMENT WITH PLAN OF CARE.
[2021-02-02] MEDS ORDERED: NEUTRA PHOS 1 POWD.PACKET GT ONE (11:00)
[2021-02-02] MEDS ORDERED: POTASSIUM CL. PREMIX PERIPHER. 50 ML IV SCH ×2 (11:00→14:30)
[2021-02-02 11:07] LABS: CREATININE KINASE (CK),MB 2.4 ng/mL (0.0-10.4); PTH, INTACT 38 pg/mL (15-65)
[2021-02-02] MEDS: ACETAMINOPHEN 325 MG TABLET PO PRN (11:51)
[2021-02-02 12:00] VITALS: BP 99/54
--- NOTE | 2021-02-02 12:23 | NUR ---
rn note administered tylenol for temp of 99.8
--- NOTE | 2021-02-02 14:00 | NUR ---
RN NOTE FLUSHED 300 CC VIA GTUBE PER MD ORDER.
--- NOTE | 2021-02-02 14:00 | NUR ---
RN NOTE HELD AM IV MEDS UNTIL AFTER MIDLINE INSERTION. MIDLINE INTACT AND PATENT. WILL ADMINISTER IV MEDS.
[2021-02-02] MEDS: IV D5W 1,000 ML IV PRN (14:07)
[2021-02-02] MEDS: VANCOMYCIN 1 GM in IV D5W 250ml IV SCH (15:59)
[2021-02-02 16:00] VITALS: BP 105/63
[2021-02-02] MEDS: DOCUSATE SODIUM LIQ 100 MG/10 ML UDC GT SCH (16:33)
[2021-02-02] MEDS: THIAMINE HCL 100 MG TABLET GT SCH (17:01)
--- NOTE | 2021-02-02 18:00 | NUR ---
RN NOTE FLUSHED 300 CC VIA GTUBE PER MD ORDER.
[2021-02-02] MEDS: NEPRO 1,000 ML BOTTLE GT PRN (18:17)
--- NOTE | 2021-02-02 18:50 | NUR ---
RN NOTE PATIENT IS IN BED WITH HOB AT SEMI FOWLERS POSITION. PATIENT IS ON TPIECE 1L WITH NO SIGNS OF LABORED BREATHING. PATIENT IS AOX0 AND OPENS EYES. KNUTSON CATHETER IS IN PLACE DRAINING CLEAR YELLOW URINE. GTUBE IS IN PLACE. BED IS LOCKED IN THE LOWEST POSITION, 3 GUARD RAILS RAISED, CALL SANTILLAN WITHIN REACH, AND ALL HOSPITAL SAFETY PRECAUTIONS ARE BEING FOLLOWED. ALL DUE MEDS GIVEN AND PATIENT REMAINED STABLE THROUGHOUT SHIFT. WILL ENDORSE TO OCCUPATIONAL THERAPIST REHAB MANAGER RN.
--- NOTE | 2021-02-02 19:30 | NUR ---
RN CLOSING NOTE RECD PT IN BED. PT IS ON TPIECE DELIVERING 1L OF O2. PT TOLERATING WELL. NO SOB NO RESP DISTRESS. GTUBE FLUSHED ASPIRATED AUSCULTATED FOR PLACEMENT. 0 RESIDUAL. GTF RUNNING ORDERED. PT ON TELE MONITOR PRESENTS WITH SINUS TACHY 108 PT BASELINE. IV SITE FLUSHED ASEPTICALLY. ALL NEEDS ATTENDED. PT NOT IN DISTRESS. SAFETY MEASURES IN PLACE HOB ELEVATED SIDE RAILS UP X2 BED LOCKED IN LOWEST POSITION WITH BED ALARM ON. CALL LIGHT WITHIN REACH. ENDORSED TO DAY SHIFT RN FOR CONTINUATION OF CARE
[2021-02-02 20:00] VITALS: BP 132/75
[2021-02-03] VITALS: BP 124/102
[2021-02-03] MEDS: BLOOD SUGAR DIAGNOSTIC 1 EACH STRIP IN SCH ×4 (00:03→17:00)
[2021-02-03] MEDS: MEROPENEM 500 MG in IV NS 0.9% 50 ML IV SCH ×3 (00:03→23:51)
[2021-02-03] MEDS: INSULIN REGULAR, HUMAN 100 UNIT/ML 3 ML VIAL SQ PRN ×2 (00:12→06:14)
[2021-02-03] MEDS: IV D5W 1,000 ML IV PRN ×2 (01:19→10:05)
[2021-02-03] MEDS: ALBUTEROL FS 2.5 MG/3 ML VIAL.NEB NEB SCH ×4 (01:50→19:54)
[2021-02-03 04:00] VITALS: BP 126/70
[2021-02-03 07:14] LABS: BASOPHILS % (AUTO) 0.3 % (0.0-2.0); EOSINOPHILS % (AUTO) 5.5 % (0.0-6.0); HEMATOCRIT 28 % (39-51); HEMOGLOBIN 8.6 g/dL (13.5-17.5); LYMPHOCYTES # (AUTO) 1.8 K/uL (0.8-4.8); LYMPHOCYTES % (AUTO) 12.4 % (20.0-44.0); MEAN CORPUSCULAR HGB CONC 31 g/dl (31.0-36.0); MEAN CORPUSCULAR VOLUME 86 fL (80-96); MONOCYTES # (AUTO) 1.1 K/uL (0.1-1.30); MONOCYTES % (AUTO) 7.4 % (2.0-12.0); NEUTROPHILS # (AUTO) 10.7 K/uL (1.8-8.9); NEUTROPHILS % (AUTO) 74.4 % (43.0-81.0); PLATELET COUNT (AUTO) 465 K/uL (150-450); RED BLOOD CELL COUNT(AUTO) 3.25 MIL/uL (4.5-6.0); WHITE BLOOD COUNT (AUTO) 14.4 K/uL (4.3-11.0)
--- NOTE | 2021-02-03 07:36 | NUR ---
RN CLOSING NOTE NO SIGNIFICANT CHANGES IN PT CONDITION. PT REMAINS ON TPIECE AT 1L OF O2 TOLERATING WELL. ALL NEEDS ATTENDED. PT NOT IN DISTRESS. SAFETY MEASURES IN PLACE HOB ELEVATED SIDE RAILS UP X2 BED LOCKED IN LOWEST POSITION WITH BED ALARM ON. CALL LIGHT WITHIN REACH. ENDORSED TO DAY SHIFT RN FOR CONTINUATION OF CARE.
[2021-02-03 07:59] LABS: CALCIUM, SERUM 9.2 mg/dL (8.5-10.1); CREATININE 1.7 mg/dL (0.6-1.3); MAGNESIUM 1.9 mg/dL (1.8-2.4); POTASSIUM 3.2 mmol/L (3.5-5.1)
[2021-02-03 08:00] VITALS: BP 142/63
--- NOTE | 2021-02-03 08:00 | NUR ---
RN NOTE FLUSHED 300 CC VIA GTUBE PER MD ORDER.
--- NOTE | 2021-02-03 08:12 | NUR ---
RN NOTE PATIENT IS IN BED WITH HOB AT SEMI FOWLERS POSITION. PATIENT IS ON TPIECE 1L WITH NO SIGNS OF LABORED BREATHING. PATIENT IS AOX0 AND OPENS EYES. MAILE MIDLINE IS PATENT AND INTACT. KNUTSON CATHETER IS IN PLACE DRAINING CLEAR YELLOW URINE. GTUBE IS IN PLACE. BED IS LOCKED IN THE LOWEST POSITION, 3 GUARD RAILS RAISED, CALL SANTILLAN WITHIN REACH, AND ALL HOSPITAL SAFETY PRECAUTIONS ARE BEING FOLLOWED. WILL CONTINUE TO MONITOR THROUGHOUT SHIFT
[2021-02-03] MEDS: CHOLECALCIFEROL 1,000 UNIT TABLET (VIT D3) GT SCH (08:27)
[2021-02-03] MEDS: TERAZOSIN HCL 1 MG CAPSULE GT SCH (08:27)
[2021-02-03] MEDS: PANTOPRAZOLE 40 MG/PACK PACK GT SCH (08:28)
[2021-02-03] MEDS: AMLODIPINE BESYLATE 10 MG TABLET GT SCH (08:28)
[2021-02-03] MEDS: LABETALOL HCL (100MG) 100 MG TABLET GT SCH ×2 (08:28→16:28)
[2021-02-03] MEDS: APIXABAN 2.5 MG TABLET GT SCH ×2 (08:30→16:27)
[2021-02-03] MEDS: GEMFIBROZIL 600 MG TABLET GT SCH ×2 (08:34→22:04)
[2021-02-03 09:00] LABS: PHOSPHORUS 3.3 mg/dL (2.5-4.9)
[2021-02-03 09:26] LABS: EOSINOPHILS % (MANUAL) 7 % (0-4); LYMPHOCYTES % (MANUAL) 10 % (16-48); MONOCYTES % (MANUAL) 6 % (0-11.0); MYELOCYTES % 1 % (0-0); NEUTROPHILS % (MANUAL) 76 (42-76)
[2021-02-03 09:47] LABS: *SPE A/G RATIO 0.5 (0.7-1.7); *SPE ALBUMIN 1.9 g/dL (2.9-4.4); *SPE ALPHA-1-GLOBULIN 0.6 g/dL (0.0-0.4); *SPE BETA GLOBULIN 0.9 g/dL (0.7-1.3); *SPE GLOBULIN, TOTAL 3.8 g/dL (2.2-3.9); *SPE M-SPIKE Not Observed g/dL (Not Observed); *SPEGAMMA GLOBULIN 1.3 g/dL (0.4-1.8)
[2021-02-03] MEDS ORDERED: POTASSIUM CHLORIDE 20 MEQ POWDER PACKET GT ONE (10:00)
[2021-02-03 12:00] VITALS: BP 103/43
--- NOTE | 2021-02-03 12:00 | NUR ---
RN NOTE FLUSHED 300 CC VIA GTUBE PER MD ORDER.
[2021-02-03 16:00] VITALS: BP 115/52
--- NOTE | 2021-02-03 16:00 | NUR ---
RN NOTE FLUSHED 300 CC VIA GTUBE PER MD ORDER.
[2021-02-03] MEDS: VANCOMYCIN 1 GM in IV D5W 250ml IV SCH (16:26)
[2021-02-03] MEDS: DOCUSATE SODIUM LIQ 100 MG/10 ML UDC GT SCH (16:26)
[2021-02-03] MEDS: THIAMINE HCL 100 MG TABLET GT SCH (17:00)
[2021-02-03] MEDS: IV NS 0.9% 1,000 ML IV PRN (17:45)
--- NOTE | 2021-02-03 19:00 | NUR ---
RN NOTE PATIENT IS IN BED WITH HOB AT SEMI FOWLERS POSITION. PATIENT IS ON TPIECE 1L WITH NO SIGNS OF LABORED BREATHING. PATIENT IS AOX0 AND OPENS EYES. MAILE MIDLINE IS PATENT AND INTACT. KNUTSON CATHETER IS IN PLACE DRAINING CLEAR YELLOW URINE. GTUBE IS IN PLACE. BED IS LOCKED IN THE LOWEST POSITION, 3 GUARD RAILS RAISED, CALL SANTILLAN WITHIN REACH, AND ALL HOSPITAL SAFETY PRECAUTIONS ARE BEING FOLLOWED. ALL DUE MEDS ARE GIVEN AND PATIENT REMAINED STABLE THROUGHOUT SHIFT. WILL ENDORSE TO PACKAGE CAR DRIVER RN.
--- NOTE | 2021-02-03 19:45 | NUR ---
PEOPLESOFT CRM DEVELOPER OPENING NOTE PATIENT A/OX1. TOLERATING O2 VIA T-PIECE AT 5 LPM; O2SAT AT 96%. EXTERNAL MACHINE PACK ASSEMBLER READS NSR AT 97. NO S/SX PAIN OR DISCOMFORT AT THIS TIME. MAILE MIDLINE INFUSING NS @ 60 ML/HR; PATENT AND INTACT. GT PEG FEEDINGS: NEPHRO @ 35ML/HR; TOLERATING WELL. F/C DRAINING CLEAR YELLOW URINE; PATENT AND INTACT. RESTRAINT TO LEFT WRIST FOR SAFETY; GOOD BLOOD CIRCULATION NOTED. SAFETY MEASURES IN PLACE: BED IN LOWEST LOCKED POSITION, SIDE RAILS UPX2, CALL LIGHT WITHIN EASY REACH, BED ALARMS ON. PATIENT IN STABLE CONDITION; WILL CONTINUE PLAN OF CARE.
[2021-02-03 20:00] VITALS: BP 109/96
[2021-02-03] MEDS: ACETAMINOPHEN 325 MG TABLET PO PRN (22:04)
--- NOTE | 2021-02-03 22:04 | NUR ---
VEHICLE MODIFICATION TECHNICIAN NOTE - TEMP PATIENT NOTED WITH TEMP OF 100.0 F. PATIENT WARM TO TOUCH. NO SHAKINESS OR PERSPIRATION NOTED. INITIATED COOLING MEASURES. ADMINISTERED TYLENOL ORDERED. WILL CONTINUE TO REASSESS PATIENT'S TEMP.
[2021-02-03] MEDS: THERAHONEY GEL 1.5 OZ TUBE TP SCH (22:06)
[2021-02-04] VITALS: BP 112/62
[2021-02-04] MEDS: BLOOD SUGAR DIAGNOSTIC 1 EACH STRIP IN SCH ×5 (00:09→22:22)
[2021-02-04] MEDS: ALBUTEROL FS 2.5 MG/3 ML VIAL.NEB NEB SCH ×4 (01:35→19:29)
[2021-02-04 04:00] VITALS: BP 122/69
[2021-02-04] MEDS: INSULIN REGULAR, HUMAN 100 UNIT/ML 3 ML VIAL SQ PRN ×2 (06:02→22:23)
--- NOTE | 2021-02-04 06:10 | NUR ---
INFORMATICS NURSE NOTE - ROOM CHANGE PATIENT CHANGED FROM ROOM 117-2 TO 118-2 VIA ACLS PRECAUTIONS. PATIENT ON CONTACT ISOLATION FOR ESBL IN URINE.
--- NOTE | 2021-02-04 06:31 | NUR ---
WATCH TRAIN ASSEMBLER CLOSING NOTE PATIENT A/OX1; NODS HEAD TO SIMPLE QUESTIONS. TOLERATING O2 VIA T-PIECE AT 5 LPM; O2SAT AT 99%. EXTERNAL ADON READS NSR AT 97. NO S/SX PAIN OR DISCOMFORT AT THIS TIME. AFEBRILE. MAILE MIDLINE INFUSING NS @ 60 ML/HR; PATENT AND INTACT. GT PEG FEEDINGS: NEPHRO @ 35ML/HR; TOLERATING WELL. F/C DRAINING CLEAR YELLOW URINE; PATENT AND INTACT. RESTRAINT TO LEFT WRIST FOR SAFETY; GOOD BLOOD CIRCULATION NOTED. SAFETY MEASURES IN PLACE: BED IN LOWEST LOCKED POSITION, SIDE RAILS UPX2, CALL LIGHT WITHIN EASY REACH, BED ALARMS ON. PATIENT IN STABLE CONDITION; WILL ENDORSE PLAN OF CARE TO ONCOMING MORNING RN.
[2021-02-04 06:56] LABS: BASOPHILS % (AUTO) 0.2 % (0.0-2.0); EOSINOPHILS % (AUTO) 6.2 % (0.0-6.0); HEMATOCRIT 24 % (39-51); HEMOGLOBIN 7.3 g/dL (13.5-17.5); LYMPHOCYTES # (AUTO) 3.4 K/uL (0.8-4.8); MEAN CORPUSCULAR HGB CONC 31 g/dl (31.0-36.0); MEAN CORPUSCULAR VOLUME 86 fL (80-96); MONOCYTES # (AUTO) 1.8 K/uL (0.1-1.30); MONOCYTES % (AUTO) 9.9 % (2.0-12.0); NEUTROPHILS # (AUTO) 11.6 K/uL (1.8-8.9); NEUTROPHILS % (AUTO) 64.7 % (43.0-81.0); PLATELET COUNT (AUTO) 432 K/uL (150-450); RED BLOOD CELL COUNT(AUTO) 2.77 MIL/uL (4.5-6.0); WHITE BLOOD COUNT (AUTO) 17.9 K/uL (4.3-11.0)
--- NOTE | 2021-02-04 07:34 | NUR ---
RN NOTE PATIENT IS IN BED WITH HOB AT SEMI FOWLERS POSITION. PATIENT IS ON TPIECE 5L WITH NO SIGNS OF LABORED BREATHING. PATIENT IS AOX0 AND OPENS EYES. MAILE MIDLINE IS PATENT AND INTACT. KNUTSON CATHETER IS IN PLACE DRAINING CLEAR YELLOW URINE. GTUBE IS IN PLACE. BED IS LOCKED IN THE LOWEST POSITION, 3 GUARD RAILS RAISED, CALL SANTILLAN WITHIN REACH, AND ALL HOSPITAL SAFETY PRECAUTIONS ARE BEING FOLLOWED. WILL CONTINUE TO MONITOR THROUGHOUT SHIFT.
[2021-02-04 08:00] VITALS: BP 126/71
[2021-02-04] MEDS: TERAZOSIN HCL 1 MG CAPSULE GT SCH (08:03)
[2021-02-04] MEDS: PANTOPRAZOLE 40 MG/PACK PACK GT SCH (08:03)
[2021-02-04] MEDS: GEMFIBROZIL 600 MG TABLET GT SCH ×2 (08:03→22:04)
[2021-02-04] MEDS: CHOLECALCIFEROL 1,000 UNIT TABLET (VIT D3) GT SCH (08:03)
[2021-02-04] MEDS: APIXABAN 2.5 MG TABLET GT SCH ×2 (08:04→17:10)
[2021-02-04] MEDS: LABETALOL HCL (100MG) 100 MG TABLET GT SCH ×2 (08:10→17:13)
[2021-02-04] MEDS: AMLODIPINE BESYLATE 10 MG TABLET GT SCH (08:11)
[2021-02-04 08:18] LABS: CALCIUM, SERUM 8.5 mg/dL (8.5-10.1); CREATININE 1.6 mg/dL (0.6-1.3); POTASSIUM 3.7 mmol/L (3.5-5.1)
[2021-02-04] MEDS: ACETAMINOPHEN 325 MG TABLET PO PRN (08:23)
[2021-02-04] MEDS: THERAHONEY GEL 1.5 OZ TUBE TP SCH (08:24)
--- NOTE | 2021-02-04 08:35 | NUR ---
RN NOTE ADMINISTERED TYLENOL FOR TEMPERATURE OF 99.4 WILL CONTINUE TO MONITOR.
--- NOTE | 2021-02-04 10:15 | NUR ---
RN NOTE NOTIFIED DR. REED ABOUT PROCALCITONIN OF 2.89
[2021-02-04] MEDS: IV NS 0.9% 1,000 ML IV PRN (10:30)
[2021-02-04] MEDS: MEROPENEM 500 MG in IV NS 0.9% 50 ML IV SCH (11:07)
[2021-02-04 12:00] VITALS: BP 103/53
[2021-02-04] MEDS: VANCOMYCIN 1 GM in IV D5W 250ml IV SCH (15:35)
--- NOTE | 2021-02-04 15:36 | NUR ---
RN NOTE VANCOMYCIN HELD FOR TROUGH OF 27.
[2021-02-04 16:00] VITALS: BP 109/55
[2021-02-04] MEDS: NEPRO 1,000 ML BOTTLE GT PRN (16:34)
[2021-02-04] MEDS: DOCUSATE SODIUM LIQ 100 MG/10 ML UDC GT SCH (17:10)
[2021-02-04] MEDS: THIAMINE HCL 100 MG TABLET GT SCH (17:13)
--- NOTE | 2021-02-04 18:40 | NUR ---
RN NOTE PATIENT IS IN BED WITH HOB AT SEMI FOWLERS POSITION. PATIENT IS ON TPIECE 5L WITH NO SIGNS OF LABORED BREATHING. PATIENT IS AOX0 AND OPENS EYES. MAILE MIDLINE IS PATENT AND INTACT. KNUTSON CATHETER IS IN PLACE DRAINING CLEAR YELLOW URINE. GTUBE IS IN PLACE. BED IS LOCKED IN THE LOWEST POSITION, 3 GUARD RAILS RAISED, CALL SANTILLAN WITHIN REACH, AND ALL HOSPITAL SAFETY PRECAUTIONS ARE BEING FOLLOWED. ALL DUE MEDS GIVEN AND PATIENT REMAINED STABLE THROUGHOUT SHIFT. WILL ENDORSE TO TELEVISION CABLE INSTALLER RN.
[2021-02-04 20:00] VITALS: BP 103/49
[2021-02-05] VITALS: BP 124/55
[2021-02-05] MEDS: MEROPENEM 500 MG in IV NS 0.9% 50 ML IV SCH ×2 (00:11→11:32)
[2021-02-05] MEDS: ALBUTEROL FS 2.5 MG/3 ML VIAL.NEB NEB SCH ×3 (01:23→12:54)
[2021-02-05] MEDS: IV NS 0.9% 1,000 ML IV PRN (02:45)
--- NOTE | 2021-02-05 03:36 | NUR ---
RN notes In bed resting comfortably with no distress noted. Alert and oriented, mainly bhutanese speaking. On T-piece via cool mist well tolerated. Breathing even and unlabored. Suctioned large amount of semi loose yellowish secretion. No complaint of pain or discomfort. Noted left neck with persistent infected fungating mass, cleanse and treatment done. Kept clean and comfortable. Will endorse to next shift for continuity of care. Addendum: 02/05/21 at 0341 by ALEC PAINTING RN wrong documentation
--- NOTE | 2021-02-05 03:43 | NUR ---
RN notes In bed resting comfortably with no distress noted. Alert with eye tracking, non verbal On T-piece via cool mist well tolerated. Breathing even and unlabored. Suctioned large amount of semi loose yellowish secretion. No physical manifestation of pain or discomfort. Kept clean and comfortable. Will endorse to next shift for continuity of care.
[2021-02-05 04:00] VITALS: BP 125/59
[2021-02-05] MEDS: BLOOD SUGAR DIAGNOSTIC 1 EACH STRIP IN SCH ×2 (06:08→11:21)
[2021-02-05] MEDS: INSULIN REGULAR, HUMAN 100 UNIT/ML 3 ML VIAL SQ PRN (06:09)
[2021-02-05 06:36] LABS: BASOPHILS % (AUTO) 0.3 % (0.0-2.0); EOSINOPHILS % (AUTO) 6.2 % (0.0-6.0); HEMATOCRIT 23 % (39-51); HEMOGLOBIN 7.6 g/dL (13.5-17.5); LYMPHOCYTES # (AUTO) 2.3 K/uL (0.8-4.8); LYMPHOCYTES % (AUTO) 16.6 % (20.0-44.0); MEAN CORPUSCULAR HGB CONC 33 g/dl (31.0-36.0); MEAN CORPUSCULAR VOLUME 83 fL (80-96); MONOCYTES # (AUTO) 1.4 K/uL (0.1-1.30); MONOCYTES % (AUTO) 9.9 % (2.0-12.0); NEUTROPHILS # (AUTO) 9.3 K/uL (1.8-8.9); PLATELET COUNT (AUTO) 464 K/uL (150-450); WHITE BLOOD COUNT (AUTO) 13.9 K/uL (4.3-11.0)
[2021-02-05 06:52] LABS: CALCIUM, SERUM 8.7 mg/dL (8.5-10.1); CREATININE 1.5 mg/dL (0.6-1.3); MAGNESIUM 2.4 mg/dL (1.8-2.4); PHOSPHORUS 4.8 mg/dL (2.5-4.9); POTASSIUM 3.6 mmol/L (3.5-5.1)
--- NOTE | 2021-02-05 07:30 | NUR ---
ACCOUNT MANAGER FOREST SERVICE NOTES PT IN BED, AWAKE, NO SIGN OF PAIN OR DISTRESS, GT FEEDING INFUSING WELL, F/C IN PLACE, NO SHORTNESS OF BREATH, KEPT WARM AND COMFORTABLE IN BED.
[2021-02-05 08:00] VITALS: BP 140/65
[2021-02-05] MEDS ORDERED: VANCOMYCIN 1 GM in IV D5W 250ml IV SCH (08:00)
[2021-02-05] MEDS: PANTOPRAZOLE 40 MG/PACK PACK GT SCH (08:57)
[2021-02-05] MEDS: CHOLECALCIFEROL 1,000 UNIT TABLET (VIT D3) GT SCH (08:57)
[2021-02-05] MEDS: LABETALOL HCL (100MG) 100 MG TABLET GT SCH (08:58)
[2021-02-05] MEDS: AMLODIPINE BESYLATE 10 MG TABLET GT SCH (08:58)
[2021-02-05] MEDS: TERAZOSIN HCL 1 MG CAPSULE GT SCH (08:58)
[2021-02-05] MEDS: APIXABAN 2.5 MG TABLET GT SCH (09:01)
[2021-02-05] MEDS: GEMFIBROZIL 600 MG TABLET GT SCH (09:02)
[2021-02-05] MEDS ORDERED: COLL30OI TP (09:07)
[2021-02-05] MEDS: THERAHONEY GEL 1.5 OZ TUBE TP SCH (09:13)
[2021-02-05 09:34] LABS: EOSINOPHILS % (MANUAL) 4 % (0-4); LYMPHOCYTES % (MANUAL) 14 % (16-48); METAMYELOCYTES % 1 % (0-0); MONOCYTES % (MANUAL) 9 % (0-11.0); MYELOCYTES % 4 % (0-0); NEUTROPHILS % (MANUAL) 68 (42-76)
[2021-02-05 12:00] VITALS: BP 113/63
[2021-02-05] MEDS ORDERED: MERO500P IV (12:11)
--- NOTE | 2021-02-05 13:00 | NUR ---
HOGSHEAD WEIGHER NOTES PT IN BED RESTING, NOT IN DISTRESS, NO SIGN OF PAIN, GT FEEDING INFUSING WELL, SEEN AND EXAMINED BY DR. REED, DISCHARGE ORDER GIVEN.
--- NOTE | 2021-02-05 19:25 | NUR ---
EGG WORKER NOTES PT IN BED, AWAKE, NO SIGN OF PAIN OR DISTRESS, NO SHORTNESS OF BREATH NOTED, SEEN BY DR. HAHN, DISCHARGE AND MEDICATION INSTRUCTIONS PROVIDED TO ADMITTING NUR[facility], PICKED UP BY 2 AMBULANCE PERSONNEL, LEFT VIA GUERNEY IN STABLE CONDITION.
--- NOTE | 2021-02-05 20:43 | NUR ---
RN NOTES: UPON ENDORSEMENT TIME AT 1925 PATIENT WAS ABOUT TO LEAVE AND OUTGOING NURSE IS PREPARING TO SEND OUT THE PATIENT VIA AMBULANCE IN STABLE CONDITION.
== END 2021-02-05 21:15 | DRG 720 ==
LOC: ER 20:38 → TELE1 22:31
PROVIDERS: ADMIT Nurse Practitioner Acute Care; ATTEND Nurse Practitioner Acute Care
PROC: 05H633Z Insertion of Infusion Device into Left Subclavian Vein, Percutaneous Approach (ICD-10-PCS; principal; 2021-02-02)
PROC: B547ZZA Ultrasonography of Left Subclavian Vein, Guidance (ICD-10-PCS; 2021-02-02)
DX: A41.9 Sepsis, unspecified organism (principal); N17.0 Acute kidney failure with tubular necrosis; J69.0 Pneumonitis due to inhalation of food and vomit; J96.11 Chronic respiratory failure with hypoxia; J15.6 Pneumonia due to other Gram-negative bacteria; E87.4 Mixed disorder of acid-base balance; G93.40 Encephalopathy, unspecified; E44.0 Moderate protein-calorie malnutrition; L89.154 Pressure ulcer of sacral region, stage 4; D68.59 Other primary thrombophilia; E11.22 Type 2 diabetes mellitus with diabetic chronic kidney disease; I13.0 Hypertensive heart and chronic kidney disease with heart failure and stage 1 through stage 4 chronic kidney disease, or unspecified chronic kidney disease; I50.22 Chronic systolic (congestive) heart failure; R53.2 Functional quadriplegia; N18.4 Chronic kidney disease, stage 4 (severe); Z93.0 Tracheostomy status; G40.909 Epilepsy, unspecified, not intractable, without status epilepticus; Z93.1 Gastrostomy status; B96.20 Unspecified Escherichia coli [E. coli] as the cause of diseases classified elsewhere; D64.9 Anemia, unspecified; K22.70 Barrett's esophagus without dysplasia; E87.5 Hyperkalemia; N39.0 Urinary tract infection, site not specified; B96.4 Proteus (mirabilis) (morganii) as the cause of diseases classified elsewhere; Z16.12 Extended spectrum beta lactamase (ESBL) resistance; E83.9 Disorder of mineral metabolism, unspecified; E88.09 Other disorders of plasma-protein metabolism, not elsewhere classified; M62.50 Muscle wasting and atrophy, not elsewhere classified, unspecified site; Z68.21 Body mass index [BMI] 21.0-21.9, adult; E87.1 Hypo-osmolality and hyponatremia; Z20.822 Contact with and (suspected) exposure to COVID-19; N13.9 Obstructive and reflux uropathy, unspecified; K21.9 Gastro-esophageal reflux disease without esophagitis; I69.351 Hemiplegia and hemiparesis following cerebral infarction affecting right dominant side; R31.0 Gross hematuria; Z79.4 Long term (current) use of insulin
CPT/HCPCS: 31720; 36415; 71045-TC; 76770-TC; 80048-TC; 80053-TC; 80076-TC; 80202-TC; 81001; 82550-TC; 82553; 82962-TC; 83605-TC; 83690-TC; 83735-TC; 83970; 84100-TC; 84132-TC; 84155; 84165; 85025-TC; 87040-TC; 87081-TC; 87086-TC; 87186-TC; 94640-TC; 94760-TC; 94762-TC; 94799-TC; A6253; A6403; G0378; J0692; J1815; J2060; J2185; J3370; J3480; J3490; J7030; J7042; J7050; J7060; J7070; U0003

== ENCOUNTER 2021-11-10 12:17 | Inpatient (IN) | payer MEDICAID ==
[~2021-11-10] VITALS: Ht 160 cm; Wt 49.0 kg
[~2021-11-10 12:17] MED LIST changes: +AMIN30LI2 GT; +ASCO-352 GT; -CITR15SO GT; +COLL30OI TP; +CRAN3875 GT; +DIPH25CA51 GT; -HEPA50008 SQ; -Hydrocortisone Sod Succinate IV; -LORA2VIA11 IV; +MERO500P IV; -METO-295 GT; -Nepro GT; +SACC250C GT; +TRAM50TA2 GT
[2021-11-10] MEDS ORDERED: IV NS 0.9% 1,000 ML BAG IV ONE (12:30)
[2021-11-10] MEDS ORDERED: MULT-447 GT (12:34)
[2021-11-10] MEDS ORDERED: METO25TA20 GT (12:34)
[2021-11-10] MEDS ORDERED: LEVO250T59 GT (12:34)
[2021-11-10 13:00] LABS: BASOPHILS # (AUTO) 0.1 K/uL (0.0-0.2); BASOPHILS % (AUTO) 0.4 % (0.0-2.0); HEMATOCRIT 26 % (39-51); HEMOGLOBIN 8.2 g/dL (13.5-17.5); LYMPHOCYTES # (AUTO) 2.3 K/uL (0.8-4.8); LYMPHOCYTES % (AUTO) 11.1 % (20.0-44.0); MEAN CORPUSCULAR HGB CONC 32 g/dl (31.0-36.0); MEAN CORPUSCULAR VOLUME 88 fL (80-96); MONOCYTES % (AUTO) 9.7 % (2.0-12.0); NEUTROPHILS # (AUTO) 15.8 K/uL (1.8-8.9); NEUTROPHILS % (AUTO) 77.8 % (43.0-81.0); PLATELET COUNT (AUTO) 885 K/uL (150-450); RED BLOOD CELL COUNT(AUTO) 2.93 MIL/uL (4.5-6.0); WHITE BLOOD COUNT (AUTO) 20.3 K/uL (4.3-11.0)
[2021-11-10] MEDS ORDERED: CEFEPIME 1 GM in IV D5W 50 ML IV ONE (13:00)
[2021-11-10] MEDS ORDERED: VANCOMYCIN 1 GM in IV D5W 250 ML IV ONE (13:00)
[2021-11-10 13:27] LABS: ALANINE AMINOTRANSFERASE 22 U/L (12-78); ALBUMIN 1.7 g/dL (3.4-5.0); ALKALINE PHOSPHATASE 148 U/L (46-116); ASPARTATE AMINOTRANSFERASE 20 U/L (15-37); BILIRUBIN,DIRECT 0.1 mg/dL (0.0-0.2); BILIRUBIN,TOTAL 0.3 mg/dL (0.2-1.0); CALCIUM, SERUM 11.3 mg/dL (8.5-10.1); CARBON DIOXIDE 20 mmol/L (21-32); CHLORIDE 106 mmol/L (98-107); CREATININE 4.6 mg/dL (0.6-1.3); GLUCOSE 112 mg/dL (74-106); POTASSIUM 5.7 mmol/L (3.5-5.1); SODIUM SERUM 139 mmol/L (136-145); TOTAL PROTEIN, SERUM 10.3 g/dL (6.4-8.2)
[2021-11-10 13:28] LABS: UREA NITROGEN, BLOOD 120 mg/dL (7-18)
[2021-11-10] MEDS ORDERED: ASPIRIN 300 MG/SUPP.RECT RC ONE ×2 (14:00)
[2021-11-10 14:25] LABS: BILIRUBIN,URINE NEGATIVE (NEGATIVE); COLOR,URINE YELLOW (YELLOW); LEUKOCYTE ESTERASE ,URINE MODERATE (NEGATIVE); NITRITE, URINE POSITIVE (NEGATIVE); PROTEIN,URINE 30 mg/dl (NEGATIVE); UGLUCOSE NEGATIVE (NEGATIVE); UROBILINOGEN,URINE 0.2 EU/dL (0.2)
[2021-11-10 14:33] LABS: BACTERIA,URINE Many /HPF (None Seen); RBC,URINE TOO NUMEROUS TO COUN /HPF (0-2); SQUAMOUS EPITHELIAL CELL,UR Few /HPF (None Seen); WBC,URINE TOO NUMEROUS TO COUN /HPF (0-3)
[2021-11-10] MEDS ORDERED: NEPRO VAN 237 ML CAN GT SCH (17:00)
[2021-11-10] MEDS ORDERED: MAG HYDROX/AL HYDROX/SIMETH 30 ML UDC PO PRN (17:00)
[2021-11-10] MEDS ORDERED: Z GUARD REMEDY 4 OZ OINT TP PRN (17:00)
[2021-11-10] MEDS ORDERED: NA PHOS,M-B/NA PHOS,DI-BA 1 EA ENEMA RC PRN (17:00)
[2021-11-10] MEDS ORDERED: Medication Not On Formulary EA (Saccharomyces Boulardii (Florastor) 250 MG) GT SCH (17:00)
[2021-11-10] MEDS ORDERED: diphenhydrAMINE HCL 25 MG CAPSULE PO PRN (17:00)
[2021-11-10] MEDS ORDERED: BISACODYL SUPP (10 MG) 10 MG/SUPP.RECT SUPP.RECT RC PRN (17:00)
[2021-11-10] MEDS ORDERED: ONDANSETRON HCL/PF 4 MG/2 ML VIAL IVP PRN (17:00)
[2021-11-10] MEDS ORDERED: MAGNESIUM HYDROXIDE 30 ML UDC PO PRN (17:00)
[2021-11-10] MEDS ORDERED: ZOLPIDEM TARTRATE 5 MG TABLET PO PRN (17:00)
[2021-11-10] MEDS ORDERED: Medication Not On Formulary EA (Cran/Vitc/Mannose/Inulin/Brom (Uti-Stat Liquid) 3,875 MG GT SCH (17:00)
[2021-11-10 17:52] LABS: BILIRUBIN,DIRECT 0.1 mg/dL (0.0-0.2); BILIRUBIN,TOTAL 0.3 mg/dL (0.2-1.0)
[2021-11-10 17:53] LABS: ALBUMIN 1.6 g/dL (3.4-5.0); TOTAL PROTEIN, SERUM 8.5 g/dL (6.4-8.2)
[2021-11-10] MEDS: ASCORBIC ACID 500 MG TABLET GT SCH (18:00)
[2021-11-10] MEDS: THIAMINE HCL 100 MG TABLET GT SCH (18:00)
[2021-11-10] MEDS ORDERED: ALBUTEROL FS 2.5 MG/0.5 ML VIAL.NEB NEB PRN (18:00)
[2021-11-10] MEDS: ALBUTEROL FS 2.5 MG/0.5 ML VIAL.NEB NEB SCH ×2 (19:30→20:18)
[2021-11-10] MEDS: IV NS 0.9% 1,000 ML IV SCH (19:59)
[2021-11-10 20:00] VITALS: BP 111/74
[2021-11-10] MEDS ORDERED: Medication Not On Formulary EA (Omega-3 Fatty Acids/Fish Oil (Fish Oil 1,000 Mg Capsule) GT SCH (21:00)
[2021-11-10] MEDS ORDERED: GEMFIBROZIL 600 MG TABLET GT SCH (21:00)
[2021-11-10] MEDS: MEROPENEM 500 MG in IV NS 0.9% 50 ML IV SCH (21:04)
[2021-11-10] MEDS: CHLORHEXIDINE GLUCONATE 15 ML UDC MM SCH (21:04)
[2021-11-10] MEDS: DOXYCYCLINE 100 MG in IV D5W 100 ML IV SCH (21:25)
[2021-11-10] MEDS: METOPROLOL TARTRATE 25 MG TABLET GT SCH (21:25)
[2021-11-10] MEDS: INSULIN GLARGINE, 100 UNIT/ML CARTRIDGE SQ SCH (22:00)
[2021-11-11] VITALS: BP 120/52
[2021-11-11] MEDS: ALBUTEROL FS 2.5 MG/0.5 ML VIAL.NEB NEB SCH ×4 (02:01→20:47)
[2021-11-11 04:00] VITALS: BP 91/46
[2021-11-11] MEDS: IV NS 0.9% 1,000 ML IV SCH ×2 (06:28→15:51)
[2021-11-11 07:12] LABS: BASOPHILS % (AUTO) 0.2 % (0.0-2.0); EOSINOPHILS % (AUTO) 1.7 % (0.0-6.0); HEMATOCRIT 27 % (39-51); HEMOGLOBIN 8.6 g/dL (13.5-17.5); LYMPHOCYTES # (AUTO) 1.1 K/uL (0.8-4.8); LYMPHOCYTES % (AUTO) 5.3 % (20.0-44.0); MEAN CORPUSCULAR HGB CONC 32 g/dl (31.0-36.0); MEAN CORPUSCULAR VOLUME 89 fL (80-96); MONOCYTES # (AUTO) 0.8 K/uL (0.1-1.30); MONOCYTES % (AUTO) 3.9 % (2.0-12.0); NEUTROPHILS # (AUTO) 18.8 K/uL (1.8-8.9); NEUTROPHILS % (AUTO) 88.9 % (43.0-81.0); PLATELET COUNT (AUTO) 850 K/uL (150-450); WHITE BLOOD COUNT (AUTO) 21.1 K/uL (4.3-11.0)
[2021-11-11 07:18] LABS: CALCIUM, SERUM 9.7 mg/dL (8.5-10.1); CREATININE 4.4 mg/dL (0.6-1.3); MAGNESIUM 2.7 mg/dL (1.8-2.4); PHOSPHORUS 5.5 mg/dL (2.5-4.9); POTASSIUM 4.9 mmol/L (3.5-5.1)
[2021-11-11] MEDS: MEROPENEM 500 MG in IV NS 0.9% 50 ML IV SCH ×2 (07:42→19:33)
[2021-11-11 08:00] VITALS: BP 100/37
[2021-11-11] MEDS: CHOLECALCIFEROL 1,000 UNIT TABLET (VIT D3) GT SCH (08:56)
[2021-11-11] MEDS: MULTIVIT W/MINERALS 1 TAB TABLET GT SCH (08:56)
[2021-11-11] MEDS: PANTOPRAZOLE 40 MG/PACK PACK GT SCH (08:56)
[2021-11-11] MEDS: TRAMADOL HCL 50 MG TABLET GT SCH (08:56)
[2021-11-11] MEDS: CHLORHEXIDINE GLUCONATE 15 ML UDC MM SCH ×2 (08:56→22:05)
[2021-11-11] MEDS: ENOXAPARIN SODIUM 30 MG/0.3 ML DISP.SYRIN SQ SCH (08:57)
[2021-11-11] MEDS: METOPROLOL TARTRATE 25 MG TABLET GT SCH ×2 (08:58→17:16)
[2021-11-11] MEDS: TERAZOSIN HCL 1 MG CAPSULE GT SCH (08:58)
[2021-11-11] MEDS ORDERED: PROSOURCE / PROSTAT (PYXIS) 30 ML UDC GT SCH (09:00)
[2021-11-11] MEDS ORDERED: AMLODIPINE BESYLATE 10 MG TABLET GT SCH (09:00)
[2021-11-11] MEDS ORDERED: PROSTAT (PYXIS) 30 ML UDC GT SCH (09:00)
[2021-11-11] MEDS: DOXYCYCLINE 100 MG in IV D5W 100 ML IV SCH ×2 (09:01→22:05)
[2021-11-11 12:00] VITALS: BP 106/43
[2021-11-11] MEDS ORDERED: CEFEPIME 2 GM in IV D5W 100 ML IV SCH (13:00)
[2021-11-11] MEDS ORDERED: NEPRO VAN 237 ML CAN GT SCH (14:00)
[2021-11-11] MEDS: NEPRO 1,000 ML BOTTLE GT PRN (15:51)
[2021-11-11 16:00] VITALS: BP 109/56
[2021-11-11] MEDS: THIAMINE HCL 100 MG TABLET GT SCH (17:15)
[2021-11-11] MEDS: ASCORBIC ACID 500 MG TABLET GT SCH (17:15)
[2021-11-11] MEDS: EPOETIN ALFA-EPBX 10,000 UNIT/ML VIAL SQ SCH (18:01)
[2021-11-11 20:00] VITALS: BP 108/61
[2021-11-11] MEDS: INSULIN GLARGINE, 100 UNIT/ML CARTRIDGE SQ SCH (22:14)
[2021-11-12] VITALS: BP 108/62
[2021-11-12] MEDS: ALBUTEROL FS 2.5 MG/0.5 ML VIAL.NEB NEB SCH ×4 (01:56→20:00)
[2021-11-12] MEDS: IV NS 0.9% 1,000 ML IV SCH ×2 (02:41→12:47)
[2021-11-12] MEDS: ACETAMINOPHEN 650 MG/20.3 ML UDC GT PRN (02:45)
[2021-11-12] MEDS ORDERED: IV NS 0.9% 1,000 ML IV ONE (03:30)
[2021-11-12 04:00] VITALS: BP 111/58
[2021-11-12] MEDS: MEROPENEM 500 MG in IV NS 0.9% 50 ML IV SCH ×2 (07:48→19:50)
[2021-11-12 08:00] VITALS: BP 127/60
[2021-11-12 08:01] LABS: BASOPHILS # (AUTO) 0.1 K/uL (0.0-0.2); BASOPHILS % (AUTO) 0.4 % (0.0-2.0); EOSINOPHILS % (AUTO) 2.1 % (0.0-6.0); HEMATOCRIT 22 % (39-51); HEMOGLOBIN 7.1 g/dL (13.5-17.5); LYMPHOCYTES # (AUTO) 1.2 K/uL (0.8-4.8); LYMPHOCYTES % (AUTO) 5.9 % (20.0-44.0); MEAN CORPUSCULAR HGB CONC 33 g/dl (31.0-36.0); MEAN CORPUSCULAR VOLUME 88 fL (80-96); MONOCYTES # (AUTO) 1.5 K/uL (0.1-1.30); MONOCYTES % (AUTO) 7.4 % (2.0-12.0); NEUTROPHILS # (AUTO) 16.6 K/uL (1.8-8.9); NEUTROPHILS % (AUTO) 84.2 % (43.0-81.0); PLATELET COUNT (AUTO) 804 K/uL (150-450); RED BLOOD CELL COUNT(AUTO) 2.49 MIL/uL (4.5-6.0); WHITE BLOOD COUNT (AUTO) 19.8 K/uL (4.3-11.0)
[2021-11-12 08:19] LABS: CALCIUM, SERUM 9.5 mg/dL (8.5-10.1); CREATININE 4.1 mg/dL (0.6-1.3); POTASSIUM 3.8 mmol/L (3.5-5.1)
[2021-11-12] MEDS ORDERED: AMIODARONE 150 MG in IV D5W 100 ML IV ONE (08:30)
[2021-11-12] MEDS ORDERED: AMIODARONE 450 MG in IV D5W 250 ML IV PRN (08:50)
[2021-11-12] MEDS: ENOXAPARIN SODIUM 30 MG/0.3 ML DISP.SYRIN SQ SCH (09:00)
[2021-11-12] MEDS: CHLORHEXIDINE GLUCONATE 15 ML UDC MM SCH ×2 (09:03→21:25)
[2021-11-12] MEDS: CHOLECALCIFEROL 1,000 UNIT TABLET (VIT D3) GT SCH (09:03)
[2021-11-12] MEDS: PANTOPRAZOLE 40 MG/PACK PACK GT SCH (09:03)
[2021-11-12] MEDS: MULTIVIT W/MINERALS 1 TAB TABLET GT SCH (09:04)
[2021-11-12] MEDS: METOPROLOL TARTRATE 25 MG TABLET GT SCH ×2 (09:04→17:45)
[2021-11-12] MEDS: TRAMADOL HCL 50 MG TABLET GT SCH (09:04)
[2021-11-12] MEDS: TERAZOSIN HCL 1 MG CAPSULE GT SCH (09:05)
[2021-11-12] MEDS: DOXYCYCLINE 100 MG in IV D5W 100 ML IV SCH ×2 (09:42→21:26)
[2021-11-12 12:00] VITALS: BP 128/41
[2021-11-12] MEDS: ACETAMINOPHEN 325 MG TABLET PO PRN (13:08)
[2021-11-12 13:16] LABS: BAND % (MANUAL) 2 % (0.0-5.0); EOSINOPHILS % (MANUAL) 2 % (0-4); LYMPHOCYTES % (MANUAL) 7 % (16-48); MONOCYTES % (MANUAL) 8 % (0-11.0); NEUTROPHILS % (MANUAL) 81 (42-76)
[2021-11-12 16:00] VITALS: BP 116/48
[2021-11-12] MEDS: ASCORBIC ACID 500 MG TABLET GT SCH (17:46)
[2021-11-12] MEDS: THIAMINE HCL 100 MG TABLET GT SCH (17:46)
[2021-11-12] MEDS: NEPRO 1,000 ML BOTTLE GT PRN (18:53)
[2021-11-12 20:00] VITALS: BP 122/56
[2021-11-12] MEDS: Sodium Bicarbonate 100 MEQ in IV NS 0.9% 1,000 ML IV SCH (20:57)
[2021-11-12] MEDS: INSULIN GLARGINE, 100 UNIT/ML CARTRIDGE SQ SCH (21:25)
[2021-11-13] VITALS: BP 122/53
[2021-11-13] MEDS: ALBUTEROL FS 2.5 MG/0.5 ML VIAL.NEB NEB SCH ×4 (01:14→20:32)
[2021-11-13 04:00] VITALS: BP 137/56
[2021-11-13 06:52] LABS: BASOPHILS # (AUTO) 0.1 K/uL (0.0-0.2); BASOPHILS % (AUTO) 0.3 % (0.0-2.0); EOSINOPHILS % (AUTO) 1.9 % (0.0-6.0); HEMATOCRIT 24 % (39-51); HEMOGLOBIN 7.7 g/dL (13.5-17.5); LYMPHOCYTES % (AUTO) 9.8 % (20.0-44.0); MEAN CORPUSCULAR HGB CONC 32 g/dl (31.0-36.0); MEAN CORPUSCULAR VOLUME 87 fL (80-96); MONOCYTES # (AUTO) 1.7 K/uL (0.1-1.30); MONOCYTES % (AUTO) 8.6 % (2.0-12.0); NEUTROPHILS % (AUTO) 79.4 % (43.0-81.0); PLATELET COUNT (AUTO) 737 K/uL (150-450); RED BLOOD CELL COUNT(AUTO) 2.78 MIL/uL (4.5-6.0); WHITE BLOOD COUNT (AUTO) 20.2 K/uL (4.3-11.0)
[2021-11-13 07:10] LABS: CALCIUM, SERUM 9.9 mg/dL (8.5-10.1); POTASSIUM 4.2 mmol/L (3.5-5.1)
[2021-11-13 08:00] VITALS: BP 145/65
[2021-11-13] MEDS: MULTIVIT W/MINERALS 1 TAB TABLET GT SCH (09:37)
[2021-11-13] MEDS: TERAZOSIN HCL 1 MG CAPSULE GT SCH (09:37)
[2021-11-13] MEDS: MEROPENEM 500 MG in IV NS 0.9% 50 ML IV SCH ×2 (09:37→20:43)
[2021-11-13] MEDS: CHOLECALCIFEROL 1,000 UNIT TABLET (VIT D3) GT SCH (09:37)
[2021-11-13] MEDS: TRAMADOL HCL 50 MG TABLET GT SCH (09:38)
[2021-11-13] MEDS: PANTOPRAZOLE 40 MG/PACK PACK GT SCH (09:38)
[2021-11-13] MEDS: CHLORHEXIDINE GLUCONATE 15 ML UDC MM SCH ×2 (09:39→21:58)
[2021-11-13] MEDS: ENOXAPARIN SODIUM 30 MG/0.3 ML DISP.SYRIN SQ SCH (09:39)
[2021-11-13] MEDS: DOXYCYCLINE 100 MG in IV D5W 100 ML IV SCH ×2 (10:48→21:58)
[2021-11-13 12:00] VITALS: BP 122/53
[2021-11-13] MEDS: AMIODARONE 450 MG in IV D5W 241 ML IV PRN (12:09)
[2021-11-13] MEDS: GENTAMICIN 80 MG in IV D5W 50 ML IV SCH (13:27)
[2021-11-13] MEDS: DIGOXIN INJ 0.5 MG/2 ML AMPUL IV SCH ×3 (13:28→23:25)
[2021-11-13 16:00] VITALS: BP 118/54
[2021-11-13] MEDS: Sodium Bicarbonate 100 MEQ in IV NS 0.9% 1,000 ML IV SCH (16:07)
[2021-11-13] MEDS: ASCORBIC ACID 500 MG TABLET GT SCH (17:16)
[2021-11-13] MEDS: METOPROLOL TARTRATE 25 MG TABLET GT SCH (17:17)
[2021-11-13] MEDS: THIAMINE HCL 100 MG TABLET GT SCH (17:18)
[2021-11-13] MEDS: EPOETIN ALFA-EPBX 10,000 UNIT/ML VIAL SQ SCH (17:46)
[2021-11-13 20:00] VITALS: BP 108/52
[2021-11-13] MEDS: INSULIN GLARGINE, 100 UNIT/ML CARTRIDGE SQ SCH (22:05)
[2021-11-14] VITALS (12 sets, daily range): BP systolic 104–144; BP diastolic 53–75
[2021-11-14] MEDS: Sodium Bicarbonate 100 MEQ in IV NS 0.9% 1,000 ML IV SCH ×3 (02:46→21:49)
[2021-11-14] MEDS: AMIODARONE 450 MG in IV D5W 241 ML IV PRN (02:48)
[2021-11-14] MEDS: NEPRO 1,000 ML BOTTLE GT PRN (02:48)
[2021-11-14] MEDS: ALBUTEROL FS 2.5 MG/0.5 ML VIAL.NEB NEB SCH ×4 (04:16→20:21)
[2021-11-14 07:47] LABS: CALCIUM, SERUM 9.4 mg/dL (8.5-10.1); POTASSIUM 3.9 mmol/L (3.5-5.1)
[2021-11-14 08:28] LABS: BASOPHILS # (AUTO) 0.1 K/uL (0.0-0.2); BASOPHILS % (AUTO) 0.4 % (0.0-2.0); EOSINOPHILS % (AUTO) 1.2 % (0.0-6.0); HEMATOCRIT 21 % (39-51); LYMPHOCYTES # (AUTO) 2.2 K/uL (0.8-4.8); LYMPHOCYTES % (AUTO) 9.8 % (20.0-44.0); MEAN CORPUSCULAR HGB CONC 32 g/dl (31.0-36.0); MEAN CORPUSCULAR VOLUME 87 fL (80-96); MONOCYTES # (AUTO) 2.1 K/uL (0.1-1.30); MONOCYTES % (AUTO) 9.4 % (2.0-12.0); NEUTROPHILS % (AUTO) 79.2 % (43.0-81.0); PLATELET COUNT (AUTO) 594 K/uL (150-450); RED BLOOD CELL COUNT(AUTO) 2.44 MIL/uL (4.5-6.0); WHITE BLOOD COUNT (AUTO) 22.7 K/uL (4.3-11.0)
[2021-11-14 08:55] LABS: HEMOGLOBIN 6.8 g/dL (13.5-17.5)
[2021-11-14] MEDS: CHLORHEXIDINE GLUCONATE 15 ML UDC MM SCH ×2 (09:02→21:49)
[2021-11-14] MEDS: MEROPENEM 500 MG in IV NS 0.9% 50 ML IV SCH ×2 (09:02→20:41)
[2021-11-14] MEDS: METOPROLOL TARTRATE 25 MG TABLET GT SCH ×2 (09:04→17:01)
[2021-11-14] MEDS: TERAZOSIN HCL 1 MG CAPSULE GT SCH (09:05)
[2021-11-14] MEDS: MULTIVIT W/MINERALS 1 TAB TABLET GT SCH (09:05)
[2021-11-14] MEDS: PANTOPRAZOLE 40 MG/PACK PACK GT SCH (09:06)
[2021-11-14] MEDS: CHOLECALCIFEROL 1,000 UNIT TABLET (VIT D3) GT SCH (09:06)
[2021-11-14] MEDS: TRAMADOL HCL 50 MG TABLET GT SCH (09:06)
[2021-11-14] MEDS: ENOXAPARIN SODIUM 30 MG/0.3 ML DISP.SYRIN SQ SCH (09:10)
[2021-11-14 11:43] LABS: HEMOGLOBIN 6.3 g/dL (13.5-17.5)
[2021-11-14] MEDS: ACETAMINOPHEN 325 MG TABLET PO PRN ×2 (12:42→21:59)
[2021-11-14 13:36] LABS: BAND % (MANUAL) 1 % (0.0-5.0); LYMPHOCYTES % (MANUAL) 11 % (16-48); MONOCYTES % (MANUAL) 7 % (0-11.0); NEUTROPHILS % (MANUAL) 81 (42-76)
[2021-11-14] MEDS: THIAMINE HCL 100 MG TABLET GT SCH (17:00)
[2021-11-14] MEDS: ASCORBIC ACID 500 MG TABLET GT SCH (17:01)
[2021-11-14] MEDS: INSULIN GLARGINE, 100 UNIT/ML CARTRIDGE SQ SCH (22:23)
[2021-11-15] VITALS: BP 152/63
[2021-11-15] MEDS: ALBUTEROL FS 2.5 MG/0.5 ML VIAL.NEB NEB SCH ×4 (01:58→20:13)
[2021-11-15 04:00] VITALS: BP 150/88
[2021-11-15] MEDS: NEPRO 1,000 ML BOTTLE GT PRN (07:17)
[2021-11-15 07:22] LABS: BASOPHILS # (AUTO) 0.1 K/uL (0.0-0.2); BASOPHILS % (AUTO) 0.7 % (0.0-2.0); EOSINOPHILS % (AUTO) 1.9 % (0.0-6.0); HEMATOCRIT 28 % (39-51); LYMPHOCYTES # (AUTO) 2.1 K/uL (0.8-4.8); LYMPHOCYTES % (AUTO) 9.5 % (20.0-44.0); MEAN CORPUSCULAR HGB CONC 33 g/dl (31.0-36.0); MEAN CORPUSCULAR VOLUME 87 fL (80-96); MONOCYTES # (AUTO) 1.9 K/uL (0.1-1.30); MONOCYTES % (AUTO) 8.5 % (2.0-12.0); NEUTROPHILS # (AUTO) 17.7 K/uL (1.8-8.9); NEUTROPHILS % (AUTO) 79.4 % (43.0-81.0); PLATELET COUNT (AUTO) 574 K/uL (150-450); RED BLOOD CELL COUNT(AUTO) 3.17 MIL/uL (4.5-6.0); WHITE BLOOD COUNT (AUTO) 22.3 K/uL (4.3-11.0)
[2021-11-15 07:30] LABS: CALCIUM, SERUM 8.9 mg/dL (8.5-10.1); CREATININE 3.9 mg/dL (0.6-1.3); POTASSIUM 3.4 mmol/L (3.5-5.1)
[2021-11-15 08:00] VITALS: BP 136/62
[2021-11-15] MEDS: CHLORHEXIDINE GLUCONATE 15 ML UDC MM SCH ×2 (08:38→20:31)
[2021-11-15] MEDS: MULTIVIT W/MINERALS 1 TAB TABLET GT SCH (08:38)
[2021-11-15] MEDS: CHOLECALCIFEROL 1,000 UNIT TABLET (VIT D3) GT SCH (08:39)
[2021-11-15] MEDS: PANTOPRAZOLE 40 MG/PACK PACK GT SCH (08:39)
[2021-11-15] MEDS: TRAMADOL HCL 50 MG TABLET GT SCH (08:39)
[2021-11-15] MEDS: TERAZOSIN HCL 1 MG CAPSULE GT SCH (08:40)
[2021-11-15] MEDS: METOPROLOL TARTRATE 25 MG TABLET GT SCH ×2 (08:40→17:30)
[2021-11-15] MEDS: ENOXAPARIN SODIUM 30 MG/0.3 ML DISP.SYRIN SQ SCH (08:41)
[2021-11-15] MEDS: MEROPENEM 500 MG in IV NS 0.9% 50 ML IV SCH ×2 (09:28→20:30)
[2021-11-15] MEDS: Sodium Bicarbonate 100 MEQ in IV NS 0.9% 1,000 ML IV SCH ×2 (09:28→20:30)
[2021-11-15 09:30] LABS: BAND % (MANUAL) 6 % (0.0-5.0); LYMPHOCYTES % (MANUAL) 11 % (16-48); MONOCYTES % (MANUAL) 5 % (0-11.0); NEUTROPHILS % (MANUAL) 78 (42-76)
[2021-11-15] MEDS: POTASSIUM CL. PREMIX PERIPHER. 50 ML IV SCH ×2 (10:05→11:08)
[2021-11-15] MEDS ORDERED: POTASSIUM CHLORIDE 20 MEQ POWDER PACKET GT SCH (11:30)
[2021-11-15 12:00] VITALS: BP 144/56
[2021-11-15 16:00] VITALS: BP 152/72
[2021-11-15] MEDS: ASCORBIC ACID 500 MG TABLET GT SCH (17:30)
[2021-11-15] MEDS: THIAMINE HCL 100 MG TABLET GT SCH (17:31)
[2021-11-15 20:00] VITALS: BP 141/75
[2021-11-15] MEDS: ACETAMINOPHEN 325 MG TABLET PO PRN (20:34)
[2021-11-15] MEDS: INSULIN GLARGINE, 100 UNIT/ML CARTRIDGE SQ SCH (21:34)
[2021-11-16] VITALS: BP 142/63
[2021-11-16] MEDS: ALBUTEROL FS 2.5 MG/0.5 ML VIAL.NEB NEB SCH ×4 (02:20→19:37)
[2021-11-16 04:00] VITALS: BP 144/87
[2021-11-16] MEDS: Sodium Bicarbonate 100 MEQ in IV NS 0.9% 1,000 ML IV SCH (06:39)
[2021-11-16 07:38] LABS: BASOPHILS # (AUTO) 0.1 K/uL (0.0-0.2); BASOPHILS % (AUTO) 0.4 % (0.0-2.0); EOSINOPHILS % (AUTO) 1.4 % (0.0-6.0); HEMATOCRIT 26 % (39-51); HEMOGLOBIN 8.4 g/dL (13.5-17.5); LYMPHOCYTES # (AUTO) 1.9 K/uL (0.8-4.8); LYMPHOCYTES % (AUTO) 9.5 % (20.0-44.0); MEAN CORPUSCULAR HGB CONC 33 g/dl (31.0-36.0); MEAN CORPUSCULAR VOLUME 87 fL (80-96); MONOCYTES # (AUTO) 1.6 K/uL (0.1-1.30); MONOCYTES % (AUTO) 7.7 % (2.0-12.0); NEUTROPHILS # (AUTO) 16.5 K/uL (1.8-8.9); PLATELET COUNT (AUTO) 515 K/uL (150-450); RED BLOOD CELL COUNT(AUTO) 2.98 MIL/uL (4.5-6.0); WHITE BLOOD COUNT (AUTO) 20.4 K/uL (4.3-11.0)
[2021-11-16 07:46] LABS: CREATININE 3.6 mg/dL (0.6-1.3); POTASSIUM 3.5 mmol/L (3.5-5.1)
[2021-11-16 08:00] VITALS: BP 183/80
[2021-11-16] MEDS: CHLORHEXIDINE GLUCONATE 15 ML UDC MM SCH ×2 (08:08→21:20)
[2021-11-16] MEDS: PANTOPRAZOLE 40 MG/PACK PACK GT SCH (08:08)
[2021-11-16] MEDS: MEROPENEM 500 MG in IV NS 0.9% 50 ML IV SCH ×2 (08:08→19:41)
[2021-11-16] MEDS: MULTIVIT W/MINERALS 1 TAB TABLET GT SCH (08:08)
[2021-11-16] MEDS: CHOLECALCIFEROL 1,000 UNIT TABLET (VIT D3) GT SCH (08:09)
[2021-11-16] MEDS: TERAZOSIN HCL 1 MG CAPSULE GT SCH (08:09)
[2021-11-16] MEDS: TRAMADOL HCL 50 MG TABLET GT SCH (08:09)
[2021-11-16] MEDS: METOPROLOL TARTRATE 25 MG TABLET GT SCH ×2 (08:11→17:20)
[2021-11-16] MEDS: ENOXAPARIN SODIUM 30 MG/0.3 ML DISP.SYRIN SQ SCH (08:14)
[2021-11-16] MEDS: NITROGLYCERIN 30 GM TUBE TP SCH ×2 (11:27→21:21)
[2021-11-16 12:00] VITALS: BP 151/77
[2021-11-16] MEDS: ACETAMINOPHEN 650 MG/20.3 ML UDC GT PRN (12:48)
[2021-11-16] MEDS: GENTAMICIN 80 MG in IV D5W 50 ML IV SCH (12:55)
[2021-11-16] MEDS: NEPRO 1,000 ML BOTTLE GT SCH (14:22)
[2021-11-16 16:00] VITALS: BP 151/76
[2021-11-16] MEDS: THIAMINE HCL 100 MG TABLET GT SCH (17:20)
[2021-11-16] MEDS: ASCORBIC ACID 500 MG TABLET GT SCH (17:20)
[2021-11-16] MEDS: EPOETIN ALFA-EPBX 10,000 UNIT/ML VIAL SQ SCH (17:52)
[2021-11-16 20:00] VITALS: BP 124/77
[2021-11-16] MEDS: INSULIN GLARGINE, 100 UNIT/ML CARTRIDGE SQ SCH (21:29)
[2021-11-17] VITALS (7 sets, daily range): BP systolic 131–150; BP diastolic 62–79
[2021-11-17 01:10] LABS: HEMOGLOBIN 7.9 g/dL (13.5-17.5)
[2021-11-17] MEDS: ALBUTEROL FS 2.5 MG/0.5 ML VIAL.NEB NEB SCH ×4 (01:18→19:49)
[2021-11-17 06:46] LABS: BASOPHILS # (AUTO) 0.1 K/uL (0.0-0.2); BASOPHILS % (AUTO) 0.7 % (0.0-2.0); EOSINOPHILS % (AUTO) 1.8 % (0.0-6.0); HEMATOCRIT 25 % (39-51); HEMOGLOBIN 7.8 g/dL (13.5-17.5); LYMPHOCYTES # (AUTO) 1.8 K/uL (0.8-4.8); LYMPHOCYTES % (AUTO) 9.2 % (20.0-44.0); MEAN CORPUSCULAR HGB CONC 32 g/dl (31.0-36.0); MEAN CORPUSCULAR VOLUME 90 fL (80-96); MONOCYTES # (AUTO) 1.6 K/uL (0.1-1.30); MONOCYTES % (AUTO) 8.2 % (2.0-12.0); NEUTROPHILS # (AUTO) 15.4 K/uL (1.8-8.9); NEUTROPHILS % (AUTO) 80.1 % (43.0-81.0); PLATELET COUNT (AUTO) 505 K/uL (150-450); RED BLOOD CELL COUNT(AUTO) 2.78 MIL/uL (4.5-6.0); WHITE BLOOD COUNT (AUTO) 19.2 K/uL (4.3-11.0)
[2021-11-17 07:09] LABS: CALCIUM, SERUM 9.1 mg/dL (8.5-10.1); CREATININE 3.9 mg/dL (0.6-1.3); MAGNESIUM 2.4 mg/dL (1.8-2.4); PHOSPHORUS 3.9 mg/dL (2.5-4.9); POTASSIUM 3.8 mmol/L (3.5-5.1)
[2021-11-17] MEDS: MEROPENEM 500 MG in IV NS 0.9% 50 ML IV SCH ×2 (08:43→20:56)
[2021-11-17] MEDS: IV D5W 1,000 ML IV PRN ×2 (08:44→21:11)
[2021-11-17] MEDS: TERAZOSIN HCL 1 MG CAPSULE GT SCH (08:54)
[2021-11-17] MEDS: METOPROLOL TARTRATE 25 MG TABLET GT SCH ×2 (08:55→17:00)
[2021-11-17] MEDS: PANTOPRAZOLE 40 MG/PACK PACK GT SCH (08:56)
[2021-11-17] MEDS: MULTIVIT W/MINERALS 1 TAB TABLET GT SCH (08:56)
[2021-11-17] MEDS: TRAMADOL HCL 50 MG TABLET GT SCH (08:56)
[2021-11-17] MEDS: CHOLECALCIFEROL 1,000 UNIT TABLET (VIT D3) GT SCH (08:57)
[2021-11-17] MEDS: CHLORHEXIDINE GLUCONATE 15 ML UDC MM SCH ×2 (09:37→20:56)
[2021-11-17] MEDS: NITROGLYCERIN 30 GM TUBE TP SCH ×2 (09:38→20:56)
[2021-11-17 10:09] LABS: HEMOGLOBIN 7.8 g/dL (13.5-17.5)
[2021-11-17 13:56] LABS: BAND % (MANUAL) 1 % (0.0-5.0); LYMPHOCYTES % (MANUAL) 10 % (16-48); NEUTROPHILS % (MANUAL) 86 (42-76)
[2021-11-17 13:57] LABS: MONOCYTES % (MANUAL) 3 % (0-11.0)
[2021-11-17 17:09] LABS: HEMOGLOBIN 7.3 g/dL (13.5-17.5)
[2021-11-17] MEDS: ASCORBIC ACID 500 MG TABLET GT SCH (17:09)
[2021-11-17] MEDS: THIAMINE HCL 100 MG TABLET GT SCH (17:09)
[2021-11-17] MEDS: INSULIN GLARGINE, 100 UNIT/ML CARTRIDGE SQ SCH (22:00)
[2021-11-17 22:09] LABS: HEMOGLOBIN 7.4 g/dL (13.5-17.5)
[2021-11-18] VITALS: BP 116/62
[2021-11-18] MEDS: ALBUTEROL FS 2.5 MG/0.5 ML VIAL.NEB NEB SCH ×4 (01:18→20:08)
[2021-11-18 04:00] VITALS: BP 146/75
[2021-11-18 07:24] LABS: BASOPHILS # (AUTO) 0.1 K/uL (0.0-0.2); BASOPHILS % (AUTO) 0.6 % (0.0-2.0); EOSINOPHILS % (AUTO) 2.3 % (0.0-6.0); HEMATOCRIT 25 % (39-51); HEMOGLOBIN 7.9 g/dL (13.5-17.5); LYMPHOCYTES # (AUTO) 1.2 K/uL (0.8-4.8); LYMPHOCYTES % (AUTO) 8.1 % (20.0-44.0); MEAN CORPUSCULAR HGB CONC 31 g/dl (31.0-36.0); MEAN CORPUSCULAR VOLUME 90 fL (80-96); MONOCYTES % (AUTO) 7.1 % (2.0-12.0); NEUTROPHILS # (AUTO) 11.7 K/uL (1.8-8.9); NEUTROPHILS % (AUTO) 81.9 % (43.0-81.0); PLATELET COUNT (AUTO) 420 K/uL (150-450); RED BLOOD CELL COUNT(AUTO) 2.81 MIL/uL (4.5-6.0); WHITE BLOOD COUNT (AUTO) 14.3 K/uL (4.3-11.0)
[2021-11-18 08:00] VITALS: BP 167/73
[2021-11-18 08:02] LABS: CALCIUM, SERUM 9.2 mg/dL (8.5-10.1); CREATININE 3.9 mg/dL (0.6-1.3); MAGNESIUM 2.4 mg/dL (1.8-2.4); PHOSPHORUS 3.8 mg/dL (2.5-4.9); POTASSIUM 3.4 mmol/L (3.5-5.1)
[2021-11-18] MEDS: CHLORHEXIDINE GLUCONATE 15 ML UDC MM SCH ×2 (08:25→21:30)
[2021-11-18] MEDS: MEROPENEM 500 MG in IV NS 0.9% 50 ML IV SCH ×2 (08:25→18:32)
[2021-11-18] MEDS: NITROGLYCERIN 30 GM TUBE TP SCH ×2 (08:31→21:31)
[2021-11-18] MEDS: PANTOPRAZOLE 40 MG/PACK PACK GT SCH (09:00)
[2021-11-18] MEDS: METOPROLOL TARTRATE 25 MG TABLET GT SCH ×2 (09:00→17:00)
[2021-11-18] MEDS: CHOLECALCIFEROL 1,000 UNIT TABLET (VIT D3) GT SCH (09:00)
[2021-11-18] MEDS: MULTIVIT W/MINERALS 1 TAB TABLET GT SCH (09:00)
[2021-11-18] MEDS ORDERED: hydrALAZINE HCL IV 20 MG VIAL IV PRN (09:00)
[2021-11-18] MEDS: TRAMADOL HCL 50 MG TABLET GT SCH (09:00)
[2021-11-18] MEDS: TERAZOSIN HCL 1 MG CAPSULE GT SCH (09:00)
[2021-11-18 09:13] LABS: HEMOGLOBIN 7.2 g/dL (13.5-17.5)
[2021-11-18] MEDS ORDERED: CLONIDINE HCL 0.3 MG/24H PTWK 1 EA PATCH TD SCH (10:00)
[2021-11-18] MEDS: IV D5W 1,000 ML IV PRN (11:14)
[2021-11-18 12:00] VITALS: BP 148/70
[2021-11-18 16:00] VITALS: BP 137/61
[2021-11-18] MEDS: THIAMINE HCL 100 MG TABLET GT SCH (17:18)
[2021-11-18] MEDS: ASCORBIC ACID 500 MG TABLET GT SCH (17:18)
[2021-11-18] MEDS: EPOETIN ALFA-EPBX 10,000 UNIT/ML VIAL SQ SCH (18:25)
[2021-11-18 20:00] VITALS: BP 139/68
[2021-11-18] MEDS: INSULIN GLARGINE, 100 UNIT/ML CARTRIDGE SQ SCH (21:39)
[2021-11-19] VITALS (8 sets, daily range): BP systolic 97–127; BP diastolic 48–60
[2021-11-19] MEDS: ALBUTEROL FS 2.5 MG/0.5 ML VIAL.NEB NEB SCH ×4 (01:27→20:29)
[2021-11-19] MEDS: IV D5W 1,000 ML IV PRN ×2 (01:49→20:59)
[2021-11-19 02:00] LABS: HEMOGLOBIN 7.9 g/dL (13.5-17.5)
[2021-11-19 07:19] LABS: CALCIUM, SERUM 8.7 mg/dL (8.5-10.1); CREATININE 3.8 mg/dL (0.6-1.3); MAGNESIUM 2.5 mg/dL (1.8-2.4); PHOSPHORUS 4.6 mg/dL (2.5-4.9); POTASSIUM 3.7 mmol/L (3.5-5.1)
[2021-11-19] MEDS: MEROPENEM 500 MG in IV NS 0.9% 50 ML IV SCH ×2 (08:00→19:25)
[2021-11-19 08:08] LABS: BASOPHILS # (AUTO) 0.1 K/uL (0.0-0.2); BASOPHILS % (AUTO) 0.5 % (0.0-2.0); EOSINOPHILS % (AUTO) 3.7 % (0.0-6.0); HEMATOCRIT 23 % (39-51); HEMOGLOBIN 7.2 g/dL (13.5-17.5); LYMPHOCYTES # (AUTO) 1.5 K/uL (0.8-4.8); LYMPHOCYTES % (AUTO) 12.7 % (20.0-44.0); MEAN CORPUSCULAR HGB CONC 32 g/dl (31.0-36.0); MEAN CORPUSCULAR VOLUME 88 fL (80-96); MONOCYTES # (AUTO) 0.9 K/uL (0.1-1.30); MONOCYTES % (AUTO) 7.2 % (2.0-12.0); NEUTROPHILS # (AUTO) 9.1 K/uL (1.8-8.9); NEUTROPHILS % (AUTO) 75.9 % (43.0-81.0); PLATELET COUNT (AUTO) 407 K/uL (150-450); RED BLOOD CELL COUNT(AUTO) 2.59 MIL/uL (4.5-6.0)
[2021-11-19] MEDS: METOPROLOL TARTRATE 25 MG TABLET GT SCH ×2 (09:00→17:37)
[2021-11-19] MEDS: NITROGLYCERIN 30 GM TUBE TP SCH ×2 (09:00→20:27)
[2021-11-19] MEDS ORDERED: ANESTHESIA TRAY IN PYXIS 1 EA TRAY MC ONE (09:47)
[2021-11-19] MEDS: NEPRO 1,000 ML BOTTLE GT SCH (12:12)
[2021-11-19] MEDS: PANTOPRAZOLE 40 MG/PACK PACK GT SCH (13:46)
[2021-11-19] MEDS: MULTIVIT W/MINERALS 1 TAB TABLET GT SCH (13:46)
[2021-11-19] MEDS: CHLORHEXIDINE GLUCONATE 15 ML UDC MM SCH ×2 (13:46→20:20)
[2021-11-19] MEDS: TRAMADOL HCL 50 MG TABLET GT SCH (13:46)
[2021-11-19] MEDS: CHOLECALCIFEROL 1,000 UNIT TABLET (VIT D3) GT SCH (13:47)
[2021-11-19] MEDS: TERAZOSIN HCL 1 MG CAPSULE GT SCH (13:47)
[2021-11-19] MEDS: TOBRAMYCIN 80 MG in IV D5W 50 ML IV SCH (16:16)
[2021-11-19] MEDS: THIAMINE HCL 100 MG TABLET GT SCH (17:36)
[2021-11-19] MEDS: ASCORBIC ACID 500 MG TABLET GT SCH (17:36)
[2021-11-19 17:55] LABS: HEMOGLOBIN 6.7 g/dL (13.5-17.5)
[2021-11-19] MEDS: INSULIN GLARGINE, 100 UNIT/ML CARTRIDGE SQ SCH (23:00)
[2021-11-20] VITALS (8 sets, daily range): BP systolic 100–129; BP diastolic 55–71
[2021-11-20] MEDS: ALBUTEROL FS 2.5 MG/0.5 ML VIAL.NEB NEB SCH ×4 (01:55→19:54)
[2021-11-20 07:28] LABS: CALCIUM, SERUM 8.8 mg/dL (8.5-10.1); CREATININE 3.8 mg/dL (0.6-1.3); MAGNESIUM 2.6 mg/dL (1.8-2.4); PHOSPHORUS 6.1 mg/dL (2.5-4.9); POTASSIUM 4.4 mmol/L (3.5-5.1)
[2021-11-20 07:34] LABS: BASOPHILS # (AUTO) 0.1 K/uL (0.0-0.2); BASOPHILS % (AUTO) 0.9 % (0.0-2.0); EOSINOPHILS % (AUTO) 4.8 % (0.0-6.0); HEMATOCRIT 33 % (39-51); HEMOGLOBIN 10.3 g/dL (13.5-17.5); MEAN CORPUSCULAR HGB CONC 31 g/dl (31.0-36.0); MEAN CORPUSCULAR VOLUME 92 fL (80-96); MONOCYTES % (AUTO) 7.2 % (2.0-12.0); NEUTROPHILS # (AUTO) 9.8 K/uL (1.8-8.9); NEUTROPHILS % (AUTO) 72.1 % (43.0-81.0); PLATELET COUNT (AUTO) 288 K/uL (150-450); RED BLOOD CELL COUNT(AUTO) 3.55 MIL/uL (4.5-6.0); WHITE BLOOD COUNT (AUTO) 13.6 K/uL (4.3-11.0)
[2021-11-20] MEDS: MEROPENEM 500 MG in IV NS 0.9% 50 ML IV SCH ×2 (08:15→19:49)
[2021-11-20] MEDS: TERAZOSIN HCL 1 MG CAPSULE GT SCH (08:23)
[2021-11-20] MEDS: METOPROLOL TARTRATE 25 MG TABLET GT SCH ×2 (08:26→17:30)
[2021-11-20] MEDS: MULTIVIT W/MINERALS 1 TAB TABLET GT SCH (08:26)
[2021-11-20] MEDS: PANTOPRAZOLE 40 MG/PACK PACK GT SCH (08:26)
[2021-11-20] MEDS: TRAMADOL HCL 50 MG TABLET GT SCH (08:27)
[2021-11-20] MEDS: CHOLECALCIFEROL 1,000 UNIT TABLET (VIT D3) GT SCH (08:27)
[2021-11-20] MEDS: CHLORHEXIDINE GLUCONATE 15 ML UDC MM SCH ×2 (08:30→21:51)
[2021-11-20] MEDS: NITROGLYCERIN 30 GM TUBE TP SCH ×2 (08:31→21:51)
[2021-11-20] MEDS: IV D5/ 0.9% NACL 1,000 ML IV PRN (13:43)
[2021-11-20] MEDS: ASCORBIC ACID 500 MG TABLET GT SCH (17:30)
[2021-11-20] MEDS: THIAMINE HCL 100 MG TABLET GT SCH (17:31)
[2021-11-20] MEDS: EPOETIN ALFA-EPBX 10,000 UNIT/ML VIAL SQ SCH (17:53)
[2021-11-20] MEDS: INSULIN GLARGINE, 100 UNIT/ML CARTRIDGE SQ SCH (21:51)
[2021-11-21] VITALS: BP 102/60
[2021-11-21] MEDS: ALBUTEROL FS 2.5 MG/0.5 ML VIAL.NEB NEB SCH ×4 (01:34→20:02)
[2021-11-21 04:00] VITALS: BP 111/76
[2021-11-21 06:09] LABS: BASOPHILS # (AUTO) 0.1 K/uL (0.0-0.2); BASOPHILS % (AUTO) 0.8 % (0.0-2.0); EOSINOPHILS % (AUTO) 4.9 % (0.0-6.0); HEMATOCRIT 28 % (39-51); LYMPHOCYTES # (AUTO) 1.2 K/uL (0.8-4.8); LYMPHOCYTES % (AUTO) 11.3 % (20.0-44.0); MEAN CORPUSCULAR HGB CONC 33 g/dl (31.0-36.0); MEAN CORPUSCULAR VOLUME 89 fL (80-96); MONOCYTES # (AUTO) 0.8 K/uL (0.1-1.30); MONOCYTES % (AUTO) 7.4 % (2.0-12.0); NEUTROPHILS # (AUTO) 8.2 K/uL (1.8-8.9); NEUTROPHILS % (AUTO) 75.6 % (43.0-81.0); PLATELET COUNT (AUTO) 404 K/uL (150-450); WHITE BLOOD COUNT (AUTO) 10.9 K/uL (4.3-11.0)
[2021-11-21 06:28] LABS: CALCIUM, SERUM 8.4 mg/dL (8.5-10.1); CREATININE 3.8 mg/dL (0.6-1.3); MAGNESIUM 2.5 mg/dL (1.8-2.4); PHOSPHORUS 6.4 mg/dL (2.5-4.9); POTASSIUM 3.9 mmol/L (3.5-5.1)
[2021-11-21 08:00] VITALS: BP 132/59
[2021-11-21] MEDS: MEROPENEM 500 MG in IV NS 0.9% 50 ML IV SCH ×2 (08:04→19:33)
[2021-11-21] MEDS: IV D5/ 0.9% NACL 1,000 ML IV PRN (09:40)
[2021-11-21] MEDS: PANTOPRAZOLE 40 MG/PACK PACK GT SCH (10:19)
[2021-11-21] MEDS: CHLORHEXIDINE GLUCONATE 15 ML UDC MM SCH ×2 (10:19→20:51)
[2021-11-21] MEDS: MULTIVIT W/MINERALS 1 TAB TABLET GT SCH (10:19)
[2021-11-21] MEDS: TRAMADOL HCL 50 MG TABLET GT SCH (10:20)
[2021-11-21] MEDS: TERAZOSIN HCL 1 MG CAPSULE GT SCH (10:20)
[2021-11-21] MEDS: CHOLECALCIFEROL 1,000 UNIT TABLET (VIT D3) GT SCH (10:21)
[2021-11-21] MEDS: METOPROLOL TARTRATE 25 MG TABLET GT SCH ×2 (10:21→17:30)
[2021-11-21] MEDS: NITROGLYCERIN 30 GM TUBE TP SCH ×2 (10:25→20:52)
[2021-11-21 12:00] VITALS: BP 126/60
[2021-11-21 16:00] VITALS: BP 140/68
[2021-11-21] MEDS: NEPRO 1,000 ML BOTTLE GT SCH (17:30)
[2021-11-21] MEDS: THIAMINE HCL 100 MG TABLET GT SCH (17:30)
[2021-11-21] MEDS: ASCORBIC ACID 500 MG TABLET GT SCH (17:31)
[2021-11-21 20:00] VITALS: BP 116/62
[2021-11-21] MEDS: INSULIN GLARGINE, 100 UNIT/ML CARTRIDGE SQ SCH (21:58)
[2021-11-22] VITALS: BP 118/68
[2021-11-22] MEDS: ALBUTEROL FS 2.5 MG/0.5 ML VIAL.NEB NEB SCH ×4 (01:06→19:40)
[2021-11-22 04:00] VITALS: BP 125/83
[2021-11-22] MEDS: IV D5/ 0.9% NACL 1,000 ML IV PRN (05:19)
[2021-11-22] MEDS: MEROPENEM 500 MG in IV NS 0.9% 50 ML IV SCH ×2 (07:51→19:22)
[2021-11-22 08:00] VITALS: BP 137/72
[2021-11-22 08:02] LABS: CREATININE 3.6 mg/dL (0.6-1.3); PHOSPHORUS 5.7 mg/dL (2.5-4.9); POTASSIUM 3.9 mmol/L (3.5-5.1)
[2021-11-22 08:09] LABS: CALCIUM, SERUM 9.1 mg/dL (8.5-10.1); MAGNESIUM 2.5 mg/dL (1.8-2.4)
[2021-11-22 08:21] LABS: BASOPHILS # (AUTO) 0.1 K/uL (0.0-0.2); BASOPHILS % (AUTO) 0.7 % (0.0-2.0); EOSINOPHILS % (AUTO) 4.4 % (0.0-6.0); HEMATOCRIT 31 % (39-51); HEMOGLOBIN 9.7 g/dL (13.5-17.5); LYMPHOCYTES # (AUTO) 1.6 K/uL (0.8-4.8); LYMPHOCYTES % (AUTO) 13.9 % (20.0-44.0); MEAN CORPUSCULAR HGB CONC 31 g/dl (31.0-36.0); MEAN CORPUSCULAR VOLUME 93 fL (80-96); MONOCYTES # (AUTO) 0.9 K/uL (0.1-1.30); MONOCYTES % (AUTO) 8.3 % (2.0-12.0); NEUTROPHILS # (AUTO) 8.3 K/uL (1.8-8.9); NEUTROPHILS % (AUTO) 72.7 % (43.0-81.0); PLATELET COUNT (AUTO) 423 K/uL (150-450); RED BLOOD CELL COUNT(AUTO) 3.39 MIL/uL (4.5-6.0); WHITE BLOOD COUNT (AUTO) 11.4 K/uL (4.3-11.0)
[2021-11-22] MEDS: CHLORHEXIDINE GLUCONATE 15 ML UDC MM SCH ×2 (08:37→21:22)
[2021-11-22] MEDS: MULTIVIT W/MINERALS 1 TAB TABLET GT SCH (08:37)
[2021-11-22] MEDS: CHOLECALCIFEROL 1,000 UNIT TABLET (VIT D3) GT SCH (08:38)
[2021-11-22] MEDS: TRAMADOL HCL 50 MG TABLET GT SCH (08:38)
[2021-11-22] MEDS: PANTOPRAZOLE 40 MG/PACK PACK GT SCH (08:38)
[2021-11-22] MEDS: METOPROLOL TARTRATE 25 MG TABLET GT SCH ×2 (08:38→17:00)
[2021-11-22] MEDS: TERAZOSIN HCL 1 MG CAPSULE GT SCH (08:39)
[2021-11-22] MEDS: NITROGLYCERIN 30 GM TUBE TP SCH ×2 (08:40→22:06)
[2021-11-22 12:00] VITALS: BP 118/69
[2021-11-22] MEDS: TOBRAMYCIN 80 MG in IV D5W 50 ML IV SCH (12:52)
[2021-11-22 16:00] VITALS: BP 96/67
[2021-11-22] MEDS: ASCORBIC ACID 500 MG TABLET GT SCH (17:39)
[2021-11-22] MEDS: THIAMINE HCL 100 MG TABLET GT SCH (17:39)
[2021-11-22 20:00] VITALS: BP 121/62
[2021-11-22] MEDS: INSULIN GLARGINE, 100 UNIT/ML CARTRIDGE SQ SCH (21:27)
[2021-11-23 00:48] VITALS: BP 129/65
[2021-11-23] MEDS: ALBUTEROL FS 2.5 MG/0.5 ML VIAL.NEB NEB SCH ×3 (01:34→14:07)
[2021-11-23 04:31] VITALS: BP 144/71
[2021-11-23 07:40] LABS: BASOPHILS # (AUTO) 0.1 K/uL (0.0-0.2); BASOPHILS % (AUTO) 0.5 % (0.0-2.0); EOSINOPHILS % (AUTO) 3.2 % (0.0-6.0); HEMATOCRIT 28 % (39-51); HEMOGLOBIN 9.2 g/dL (13.5-17.5); LYMPHOCYTES # (AUTO) 1.4 K/uL (0.8-4.8); MEAN CORPUSCULAR HGB CONC 32 g/dl (31.0-36.0); MEAN CORPUSCULAR VOLUME 90 fL (80-96); MONOCYTES # (AUTO) 0.9 K/uL (0.1-1.30); NEUTROPHILS # (AUTO) 11.6 K/uL (1.8-8.9); NEUTROPHILS % (AUTO) 80.3 % (43.0-81.0); PLATELET COUNT (AUTO) 448 K/uL (150-450); RED BLOOD CELL COUNT(AUTO) 3.15 MIL/uL (4.5-6.0); WHITE BLOOD COUNT (AUTO) 14.4 K/uL (4.3-11.0)
[2021-11-23 07:45] LABS: CREATININE 3.3 mg/dL (0.6-1.3); MAGNESIUM 2.3 mg/dL (1.8-2.4); POTASSIUM 3.8 mmol/L (3.5-5.1)
[2021-11-23 08:00] VITALS: BP 151/65
[2021-11-23] MEDS: MEROPENEM 500 MG in IV NS 0.9% 50 ML IV SCH (08:53)
[2021-11-23] MEDS: METOPROLOL TARTRATE 25 MG TABLET GT SCH ×2 (08:55→16:08)
[2021-11-23] MEDS: PANTOPRAZOLE 40 MG/PACK PACK GT SCH (08:56)
[2021-11-23] MEDS: TRAMADOL HCL 50 MG TABLET GT SCH (08:57)
[2021-11-23] MEDS: CHOLECALCIFEROL 1,000 UNIT TABLET (VIT D3) GT SCH (08:57)
[2021-11-23] MEDS: TERAZOSIN HCL 1 MG CAPSULE GT SCH (08:58)
[2021-11-23] MEDS: MULTIVIT W/MINERALS 1 TAB TABLET GT SCH (08:58)
[2021-11-23] MEDS: CHLORHEXIDINE GLUCONATE 15 ML UDC MM SCH (09:01)
[2021-11-23] MEDS: NITROGLYCERIN 30 GM TUBE TP SCH (09:01)
[2021-11-23 12:00] VITALS: BP 141/64
[2021-11-23 16:00] VITALS: BP 139/55
[2021-11-23 16:08] VITALS: BP 139/55
[2021-11-24] MEDS ORDERED: TOBRAMYCIN 80 MG in IV D5W 50 ML IV SCH (12:00)
== END 2021-11-23 16:38 | DRG 720 ==
LOC: ER 12:18 → TELE1 18:28 → TELE-TD 11-13 06:56 → TELE1 11-14 08:23 → MEDSG1 11-23 13:05
PROVIDERS: ADMIT Family Medicine
PROC: 05HA33Z Insertion of Infusion Device into Left Brachial Vein, Percutaneous Approach (ICD-10-PCS; 2021-11-12)
PROC: 05H933Z Insertion of Infusion Device into Right Brachial Vein, Percutaneous Approach (ICD-10-PCS; 2021-11-13)
PROC: 30233N1 Transfusion of Nonautologous Red Blood Cells into Peripheral Vein, Percutaneous Approach (ICD-10-PCS; principal; 2021-11-14)
PROC: 0DH63UZ Insertion of Feeding Device into Stomach, Percutaneous Approach (ICD-10-PCS; 2021-11-19)
DX: A41.51 Sepsis due to Escherichia coli [E. coli] (principal); N17.0 Acute kidney failure with tubular necrosis; G93.49 Other encephalopathy; E43 Unspecified severe protein-calorie malnutrition; J96.10 Chronic respiratory failure, unspecified whether with hypoxia or hypercapnia; I21.A1 Myocardial infarction type 2; I69.351 Hemiplegia and hemiparesis following cerebral infarction affecting right dominant side; E11.649 Type 2 diabetes mellitus with hypoglycemia without coma; E87.2 Acidosis; I13.0 Hypertensive heart and chronic kidney disease with heart failure and stage 1 through stage 4 chronic kidney disease, or unspecified chronic kidney disease; I50.9 Heart failure, unspecified; J18.9 Pneumonia, unspecified organism; E11.22 Type 2 diabetes mellitus with diabetic chronic kidney disease; R65.20 Severe sepsis without septic shock; D63.8 Anemia in other chronic diseases classified elsewhere; D75.839 Thrombocytosis, unspecified; E87.5 Hyperkalemia; N39.0 Urinary tract infection, site not specified; E83.52 Hypercalcemia; Z20.822 Contact with and (suspected) exposure to COVID-19; K29.70 Gastritis, unspecified, without bleeding; N18.9 Chronic kidney disease, unspecified; Z16.12 Extended spectrum beta lactamase (ESBL) resistance; G40.909 Epilepsy, unspecified, not intractable, without status epilepticus; F41.9 Anxiety disorder, unspecified; E88.09 Other disorders of plasma-protein metabolism, not elsewhere classified; R13.10 Dysphagia, unspecified; E86.9 Volume depletion, unspecified; K22.70 Barrett's esophagus without dysplasia; E11.65 Type 2 diabetes mellitus with hyperglycemia; E11.36 Type 2 diabetes mellitus with diabetic cataract; E87.6 Hypokalemia; R74.8 Abnormal levels of other serum enzymes; L89.159 Pressure ulcer of sacral region, unspecified stage; N13.6 Pyonephrosis; I48.92 Unspecified atrial flutter; J98.11 Atelectasis; I48.91 Unspecified atrial fibrillation; E87.0 Hyperosmolality and hypernatremia; R31.9 Hematuria, unspecified; N28.89 Other specified disorders of kidney and ureter; X58.XXXA Exposure to other specified factors, initial encounter; Y92.9 Unspecified place or not applicable; S37.092A Other injury of left kidney, initial encounter; Z99.11 Dependence on respirator [ventilator] status
CPT/HCPCS: 36410; 36415; 43246; 71045-TC; 76770-TC; 80048-TC; 80076-TC; 80170-TC; 81001; 82962-TC; 83605-TC; 83735-TC; 84100-TC; 84484-TC; 85025-TC; 85027-TC; 85730-TC; 86850-TC; 87040-TC; 87081-TC; 87086-TC; 87186-TC; 93307-TC; 94640-TC; 94760-TC; 94799-TC; A6253; C9803; G0378; J0282; J0360; J0692; J0885; J1160; J1580; J1650; J1815; J2185; J2704; J3260; J3370; J3480; J3490; J7030; J7040; J7042; J7050; J7060; J7070; P9016; Q0163

== ENCOUNTER 2022-02-16 10:46 | Inpatient (IN) | payer MEDICAID ==
[~2022-02-16] VITALS: Ht 152.4 cm; Wt 50.3 kg
[~2022-02-16 10:46] MED LIST changes: -COLL30OI TP; -DOCU50LI GT; -INSU100V3 SQ; -LABE200T5 GT; +LEVO250T59 GT; -MERO500P IV; +METO25TA20 GT; +MULT-447 GT
--- NOTE | 2022-02-16 10:48 | NUR ---
BIB RA78 FROM [facility] FOR NOTED O2 DESTURATION AND BRADYCARDIA. PT IS VENT DEPENDANT AND SATTING AT 95% UPON ARRIVAL. PT IS NON VERBAL. G TUBE AND KNUTSON IN PLACE. ATTACHED TO MONIOTR. PT HAS A WOUND ON HIS BUTTOCKS. DR LO AND RT AT BEDSIDE. AWAITING MD ORDERS.
[2022-02-16] MEDS ORDERED: VANCOMYCIN 1 GM in IV D5W 250 ML IV ONE (11:00)
[2022-02-16] MEDS ORDERED: CEFEPIME 1 GM in IV D5W 50 ML IV ONE (11:00)
[2022-02-16] MEDS ORDERED: LANT10005 GT (11:06)
[2022-02-16] MEDS ORDERED: PIPE3.379 IV (11:06)
[2022-02-16] MEDS ORDERED: DILT30TA14 GT (11:06)
[2022-02-16] MEDS ORDERED: ZINC50TA69 GT (11:06)
[2022-02-16] MEDS ORDERED: VANC1VIA34 IV (11:06)
[2022-02-16] MEDS ORDERED: PANT40TA2 GT (11:06)
[2022-02-16] MEDS ORDERED: MULT1TAB70 GT (11:06)
[2022-02-16] MEDS ORDERED: BUME1TAB8 GT (11:06)
[2022-02-16] MEDS ORDERED: GABA250S2 GT (11:06)
[2022-02-16] MEDS ORDERED: INSU100V39 SQ (11:06)
--- NOTE | 2022-02-16 11:17 | NUR ---
MOVE SHEET SUBMITTED.
--- NOTE | 2022-02-16 11:19 | NUR ---
X RAY AT BEDSIDE
--- NOTE | 2022-02-16 11:27 | NUR ---
COVID TEST COLLECTED AND SENT
[2022-02-16 11:34] LABS: HEMOGLOBIN 7.7 g/dL (13.5-17.5)
--- NOTE | 2022-02-16 11:36 | NUR ---
VENT SETTINGS: MODE: A/C PRVC FIO2: 40 RATE: 18 I:E 1:2 PEEP: 5 PMAX: 2
[2022-02-16 11:51] LABS: ALANINE AMINOTRANSFERASE 22 U/L (12-78); ALKALINE PHOSPHATASE 392 U/L (46-116); ASPARTATE AMINOTRANSFERASE 21 U/L (15-37); BILIRUBIN,DIRECT 0.2 mg/dL (0.0-0.2); BILIRUBIN,TOTAL 0.4 mg/dL (0.2-1.0); CARBON DIOXIDE 20 mmol/L (21-32); CHLORIDE 94 mmol/L (98-107); CREATININE 3.7 mg/dL (0.6-1.3); GLUCOSE 103 mg/dL (74-106); POTASSIUM 3.6 mmol/L (3.5-5.1); SODIUM SERUM 128 mmol/L (136-145); UREA NITROGEN, BLOOD 78 mg/dL (7-18)
[2022-02-16 11:58] LABS: BASOPHILS % (AUTO) 0.1 % (0.0-2.0); HEMATOCRIT 24 % (39-51); LYMPHOCYTES # (AUTO) 1.9 K/uL (0.8-4.8); LYMPHOCYTES % (AUTO) 6.4 % (20.0-44.0); MEAN CORPUSCULAR HGB CONC 33 g/dl (31.0-36.0); MEAN CORPUSCULAR VOLUME 91 fL (80-96); MONOCYTES # (AUTO) 1.6 K/uL (0.1-1.30); MONOCYTES % (AUTO) 5.6 % (2.0-12.0); NEUTROPHILS # (AUTO) 25.3 K/uL (1.8-8.9); NEUTROPHILS % (AUTO) 86.9 % (43.0-81.0); PLATELET COUNT (AUTO) 575 K/uL (150-450); RED BLOOD CELL COUNT(AUTO) 2.61 MIL/uL (4.5-6.0); WHITE BLOOD COUNT (AUTO) 29.2 K/uL (4.3-11.0)
[2022-02-16 12:03] LABS: CALCIUM, SERUM 12.2 mg/dL (8.5-10.1)
[2022-02-16 12:09] LABS: ALBUMIN 1.4 g/dL (3.4-5.0)
--- NOTE | 2022-02-16 12:12 | NUR ---
[facility] CALLED [place] [place] GUIDE PAGED.
[2022-02-16] MEDS ORDERED: IPRATROPIUM BROMIDE 14 GM INHALER (or 12.9 GM) IH PRN (12:30)
[2022-02-16 12:59] LABS: BAND % (MANUAL) 5 % (0.0-5.0); EOSINOPHILS % (MANUAL) 1 % (0-4); LYMPHOCYTES % (MANUAL) 7 % (16-48); MONOCYTES % (MANUAL) 5 % (0-11.0); NEUTROPHILS % (MANUAL) 82 (42-76)
[2022-02-16] MEDS ORDERED: NEPRO VAN 237 ML CAN GT SCH (13:00)
[2022-02-16] MEDS ORDERED: BISACODYL SUPP (10 MG) 10 MG/SUPP.RECT SUPP.RECT RC PRN (13:00)
[2022-02-16] MEDS ORDERED: ALBUTEROL FS 2.5 MG/0.5 ML VIAL.NEB NEB PRN (13:30)
[2022-02-16 14:33] LABS: ABG BASE EXCESS -9.2 mmol/L; ABG PCO2 28.1 mmHg (35.0-45.0); ABG PH 7.355 (7.350-7.450); ABG PO2 82.1 mmHg (75.0-100.0); COHb 0.3 % (0.5-1.5); MetHb 0.6 % (0.0-1.5); O2Hb 95.2 % (94.0-97.0); PEEP,BG 5 cm H2O; SITE, ABG Right Radial; VT, ABG 500 mL
--- NOTE | 2022-02-16 14:57 | NUR ---
REPORT GIVEN TO NURSE BEST FOR HAMILTON
--- NOTE | 2022-02-16 15:04 | NUR ---
ULTRASOUND AT BEDSIDE
--- NOTE | 2022-02-16 15:28 | NUR ---
URINE COLLECTED AND SENT TO THE LAB
--- NOTE | 2022-02-16 15:56 | NUR ---
THE PATIENT IS TRANSFERED TO ROOM 104 IN STABLE CONDITION AND PER ACLS POLICY.
[2022-02-16 16:00] VITALS: BP 130/56
[2022-02-16 16:02] LABS: THYROID STIMULATING HORMONE 4.068 uIU/mL (0.358-3.74)
--- NOTE | 2022-02-16 16:29 | NUR ---
RN NOTE RECEIVED PT VIA YUMIKO FROM ER. PT TRACH IN PLACE WITH VENT SETTINGS TOLERATED WELL WITH O2 SAT OF 99. V/S STABLE. WILL CONT TO MONITOR.
[2022-02-16] MEDS ORDERED: Medication Not On Formulary EA (Cran/Vitc/Mannose/Inulin/Brom (Uti-Stat Liquid) 3,875 MG GT SCH (17:00)
[2022-02-16 18:00] LABS: COLOR,URINE YELLOW (YELLOW); CREATININE, URINE 37.6 MG/DL (30.0-125.0)
[2022-02-16] MEDS ORDERED: PIPERACILLIN /TAZOBACTAM 3.375 G in IV D5W 50 ML IV SCH (18:00)
[2022-02-16] MEDS ORDERED: PIPERACILLIN /TAZOBACTAM 2.25 G in IV D5W 50 ML IV SCH (18:00)
[2022-02-16 18:04] LABS: PROTEIN,URINE 2+ mg/dl (NEGATIVE)
[2022-02-16 18:05] LABS: LEUKOCYTE ESTERASE ,URINE 2+ (NEGATIVE); PH,URINE 6.5 (5.0-8.0); UGLUCOSE NEGATIVE (NEGATIVE)
[2022-02-16 18:06] LABS: NITRITE, URINE NEGATIVE (NEGATIVE)
[2022-02-16 18:08] LABS: BILIRUBIN,URINE NEGATIVE (NEGATIVE)
[2022-02-16] MEDS: ASCORBIC ACID 500 MG TABLET GT SCH (18:11)
[2022-02-16] MEDS: HEPARIN SODIUM, PORCINE 5000 UNITS/1 ML VIAL SQ SCH (18:12)
[2022-02-16] MEDS: BLOOD SUGAR DIAGNOSTIC 1 EACH STRIP IN SCH ×2 (18:12→18:30)
[2022-02-16 18:21] LABS: RBC,URINE TOO NUMEROUS TO COUN /HPF (0-2); WBC,URINE 21-50 /HPF (0-3)
[2022-02-16 18:23] LABS: BACTERIA,URINE Many /HPF (None Seen); SQUAMOUS EPITHELIAL CELL,UR Few /HPF (None Seen); YEAST,URINE Moderate /HPF (None Seen)
--- NOTE | 2022-02-16 19:35 | NUR ---
RN OPENING NOTES: RECEIVED PATIENT IN BED, OBTUNDED, BOTH EYES CLOSED. ON TRACH TO VENT SETTING: S#6, AC= 18, DS=749, FIO2= 40, PEEP=5 AND PT TOLERATED WELL. IV ACCESS ON LAC#20G INTACT AND PATENT. NO S/S OF INFILTRATIONS. NO FACIAL GRIMACING NOTED. NO ACUTE DISTRESS. ALL SAFETY MEASURES IN PLACE. BED IN LOWEST POSITION AND LOCKED, PLACE CALL LIGHT WITHIN REACH, SIDE RAILS UP X3. WILL CONTINUE TO MONITOR.
[2022-02-16 20:00] VITALS: BP 127/67
[2022-02-16] MEDS ORDERED: NEPRO 1,000 ML BOTTLE GT PRN (20:30)
[2022-02-16] MEDS: LANTHANUM CARBONATE 500 MG TAB.CHEW GT SCH (21:34)
[2022-02-16] MEDS: GABAPENTIN 100 MG CAPSULE PO SCH (21:35)
[2022-02-16] MEDS: MEROPENEM 500 MG in IV NS 0.9% 50 ML IV SCH (21:38)
[2022-02-16] MEDS: FLUCONAZOLE (100 MG) 100 MG TABLET PO SCH (21:43)
[2022-02-16] MEDS: DILTIAZEM HCL 30 MG TABLET GT SCH (21:45)
[2022-02-16] MEDS ORDERED: MAGNESIUM HYDROXIDE 30 ML UDC GT PRN (22:00)
[2022-02-17] VITALS: BP 118/57
[2022-02-17] MEDS: BLOOD SUGAR DIAGNOSTIC 1 EACH STRIP IN SCH ×4 (00:03→17:12)
--- NOTE | 2022-02-17 00:04 | NUR ---
RN NOTES: PT'S BLOOD SUGAR 85. NO COVERAGE NEEDED. NO S/S OF HYPER/HYPOGLYCEMIA. WILL CONTINUE TO MONITOR
[2022-02-17 04:00] VITALS: BP 126/60
[2022-02-17] MEDS: GABAPENTIN 100 MG CAPSULE PO SCH ×3 (04:30→20:12)
[2022-02-17] MEDS: LANTHANUM CARBONATE 500 MG TAB.CHEW GT SCH ×3 (04:30→20:12)
[2022-02-17] MEDS: DILTIAZEM HCL 30 MG TABLET GT SCH ×3 (04:31→20:11)
[2022-02-17 06:26] LABS: BASOPHILS # (AUTO) 0.1 K/uL (0.0-0.2); BASOPHILS % (AUTO) 0.3 % (0.0-2.0); EOSINOPHILS % (AUTO) 1.5 % (0.0-6.0); HEMATOCRIT 23 % (39-51); HEMOGLOBIN 7.1 g/dL (13.5-17.5); LYMPHOCYTES # (AUTO) 1.5 K/uL (0.8-4.8); LYMPHOCYTES % (AUTO) 7.2 % (20.0-44.0); MEAN CORPUSCULAR HGB CONC 31 g/dl (31.0-36.0); MEAN CORPUSCULAR VOLUME 97 fL (80-96); MONOCYTES # (AUTO) 0.9 K/uL (0.1-1.30); MONOCYTES % (AUTO) 4.3 % (2.0-12.0); NEUTROPHILS # (AUTO) 18.6 K/uL (1.8-8.9); NEUTROPHILS % (AUTO) 86.7 % (43.0-81.0); PLATELET COUNT (AUTO) 177 K/uL (150-450); RED BLOOD CELL COUNT(AUTO) 2.37 MIL/uL (4.5-6.0); WHITE BLOOD COUNT (AUTO) 21.4 K/uL (4.3-11.0)
--- NOTE | 2022-02-17 06:40 | NUR ---
RN CLOSING NOTES: PATIENT IN BED, OBTUNDED, BOTH EYES CLOSED. ON TRACH TO VENT SETTING: S#6, AC= 18, XG=570, FIO2= 40, PEEP=5 AND PT TOLERATED WELL. O2 SAT 100%. IV ACCESS ON LAC#20G AND RT HAND #20G INTACT AND PATENT. NO S/S OF INFILTRATIONS. NO FACIAL GRIMACING NOTED. NO ACUTE DISTRESS. ALL DUE MEDS GIVEN ORDERED. BLOOD SUGAR IN THE MORNING 86. NO S/S OF HYPER/HYPOGLYCEMIA. ALL DUE MEDS GIVEN ORDERED. ALL SAFETY MEASURES IN PLACE. BED IN LOWEST POSITION AND LOCKED, PLACE CALL LIGHT WITHIN REACH, SIDE RAILS UP X3. WILL ENDORSE TO MORNING SHIFT NURSE.
--- NOTE | 2022-02-17 06:45 | NUR ---
RN NOTES: GTUBE FEEDING TOLERATED WELL WITH NEPRO AT 40CC/HR X20 HOURS. NOTED GTUBE SITE WITH SCANT AMOUNT OF DRAINAGE. APPLIED DRY DRESSING.
[2022-02-17 07:13] LABS: BILIRUBIN,TOTAL 0.3 mg/dL (0.2-1.0); CALCIUM, SERUM 12.4 mg/dL (8.5-10.1); CREATININE 3.9 mg/dL (0.6-1.3); MAGNESIUM 2.1 mg/dL (1.8-2.4); PHOSPHORUS 4.2 mg/dL (2.5-4.9); POTASSIUM 3.5 mmol/L (3.5-5.1); TOTAL PROTEIN, SERUM 7.4 g/dL (6.4-8.2)
--- NOTE | 2022-02-17 07:46 | NUR ---
RN OPENING NOTES RECEIVED PATIENT IN BED, OBTUNDED, BOTH EYES CLOSED. ON TRACH TO VENT SETTING: S#6, AC= 18, GX=882, FIO2= 40, PEEP=5 AND PT TOLERATED WELL. IV ACCESS ON LAC#20G, RT HAND 20G INTACT AND PATENT. NO S/S OF INFILTRATIONS. NO FACIAL GRIMACING NOTED. NO ACUTE DISTRESS. ALL SAFETY MEASURES IN PLACE. BED IN LOWEST POSITION AND LOCKED, PLACE CALL LIGHT WITHIN REACH, SIDE RAILS UP X3. WILL CONTINUE TO MONITOR.
[2022-02-17 07:58] LABS: ALBUMIN 1.3 g/dL (3.4-5.0)
[2022-02-17 08:00] VITALS: BP 130/70
[2022-02-17 08:11] LABS: THYROID STIMULATING HORMONE 3.219 uIU/mL (0.358-3.74)
[2022-02-17] MEDS: BUMETANIDE (1 MG) 1 MG TABLET GT SCH (08:13)
[2022-02-17] MEDS: ZINC SULFATE 220 MG CAPSULE GT SCH (08:13)
[2022-02-17] MEDS: PANTOPRAZOLE 40 MG/PACK PACK GT SCH (08:13)
[2022-02-17] MEDS: FLUCONAZOLE (100 MG) 100 MG TABLET PO SCH (08:13)
[2022-02-17] MEDS: MEROPENEM 500 MG in IV NS 0.9% 50 ML IV SCH ×2 (08:14→20:07)
[2022-02-17] MEDS: HEPARIN SODIUM, PORCINE 5000 UNITS/1 ML VIAL SQ SCH ×2 (08:50→17:11)
[2022-02-17] MEDS ORDERED: Medication Not On Formulary EA (Zinc 50 MG) GT SCH (09:00)
[2022-02-17] MEDS ORDERED: DEXAMETHASONE SOD PHOSPHATE 10 MG/ML VIAL IV SCH (09:00)
[2022-02-17] MEDS: ACETAMINOPHEN 650 MG/20.3 ML UDC GT PRN (09:08)
[2022-02-17] MEDS: INSULIN REGULAR, HUMAN 100 UNIT/ML 3 ML VIAL SQ PRN (11:17)
[2022-02-17 12:34] VITALS: BP 128/77
[2022-02-17 16:00] VITALS: BP 120/68
[2022-02-17] MEDS: ASCORBIC ACID 500 MG TABLET GT SCH (17:12)
--- NOTE | 2022-02-17 18:56 | NUR ---
RN CLOSING NOTE PT IS RESTING IN BED, OBTUNDED. NO S/S OF DISTRESS AT THIS TIME. PT ON ORDERED VENT SETTINGS. 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 IV ACCESS NOTED AT LAC 20G. R HAND 20G. GTUBE RUNNING NEPRO AT 40ML/HR RUNNING FOR 24 HRS. ENDING AT 1040 02/18/22. ALL SAFETY MEASURES IN PLACE, FALL PRECAUTIONS IN PLACE, WILL ENDORSE TO SPRINKLER IRRIGATION EQUIPMENT MECHANIC RN FOR HAMILTON.
--- NOTE | 2022-02-17 19:30 | NUR ---
DASHA/MANAGER RELIABILITY REPORT RECIEVED FROM AM SHIFT, SEE IV SPREAD SHEET FOR IV'S. ALSO SEE FLOWSHEET FOR ASSESSMENT, PT CURRENTLY HAS MANY SKIN ISSUES WHICH ARE ADDRESSED ON THE FLOWSHEET ALONG WITH THE INTERVENTIONS TO EACH. PT TURNED AND REPOSITIONED FOR COMFORT AND CARE.
[2022-02-17 20:00] VITALS: BP 156/57
[2022-02-17] MEDS: IV NS 0.9% 1,000 ML IV SCH (20:12)
--- NOTE | 2022-02-17 22:30 | NUR ---
DASHA/HAIR STYLIST PT HAD MANY SKIN ISSUES, WOUND PHOTO WAS DONE. NEW SKIN ISSUES WERE ALSO ADDRESSED ON THE FLOWSHEET ALONG WITH INTERVENTIONS TO THESE.
[2022-02-18] VITALS: BP 156/86
[2022-02-18] MEDS: BLOOD SUGAR DIAGNOSTIC 1 EACH STRIP IN SCH ×4 (00:22→17:43)
[2022-02-18] MEDS: INSULIN REGULAR, HUMAN 100 UNIT/ML 3 ML VIAL SQ PRN ×5 (00:23→18:04)
--- NOTE | 2022-02-18 00:40 | NUR ---
DASHA/CHRISTIAN COUNSELOR ACCU CHECK WAS DONE , BLOOD SUGAR WAS 175 AND SLIDING SCALE USED TO COVER THIS WHICH WAS 3 UNITS. WILL CONTINUE TO MONITOR THIS PT AND HIS SUGARS.
[2022-02-18] MEDS: NEPRO 1,000 ML BOTTLE GT PRN (01:04)
--- NOTE | 2022-02-18 03:00 | NUR ---
DASHA/METAL BOX MAKER PT WAS GIVEN AM CARE, THEN TURNED AND REPOSITIONED FOR COMFORT AND CARE. WILL CONTINUE TO MONITOR THIS PT. NO ACUTE DISTRESS SEEN.
[2022-02-18 04:00] VITALS: BP 146/81
[2022-02-18] MEDS: GABAPENTIN 100 MG CAPSULE PO SCH ×3 (05:22→21:47)
[2022-02-18] MEDS: LANTHANUM CARBONATE 500 MG TAB.CHEW GT SCH ×3 (05:23→21:47)
[2022-02-18] MEDS: DILTIAZEM HCL 30 MG TABLET GT SCH ×3 (05:23→21:48)
[2022-02-18 07:32] LABS: BASOPHILS % (AUTO) 0.1 % (0.0-2.0); HEMATOCRIT 22 % (39-51); HEMOGLOBIN 7.2 g/dL (13.5-17.5); LYMPHOCYTES # (AUTO) 1.4 K/uL (0.8-4.8); LYMPHOCYTES % (AUTO) 6.4 % (20.0-44.0); MEAN CORPUSCULAR HGB CONC 33 g/dl (31.0-36.0); MEAN CORPUSCULAR VOLUME 90 fL (80-96); MONOCYTES # (AUTO) 1.1 K/uL (0.1-1.30); MONOCYTES % (AUTO) 4.8 % (2.0-12.0); NEUTROPHILS # (AUTO) 19.5 K/uL (1.8-8.9); NEUTROPHILS % (AUTO) 88.7 % (43.0-81.0); PLATELET COUNT (AUTO) 524 K/uL (150-450); RED BLOOD CELL COUNT(AUTO) 2.41 MIL/uL (4.5-6.0)
[2022-02-18 08:00] VITALS: BP 154/77
[2022-02-18] MEDS: IV NS 0.9% 1,000 ML IV SCH (08:30)
[2022-02-18 09:04] LABS: CREATININE 3.9 mg/dL (0.6-1.3); MAGNESIUM 2.4 mg/dL (1.8-2.4); PHOSPHORUS 4.7 mg/dL (2.5-4.9); POTASSIUM 3.3 mmol/L (3.5-5.1)
[2022-02-18 09:05] LABS: BAND % (MANUAL) 6 % (0.0-5.0); LYMPHOCYTES % (MANUAL) 7 % (16-48); MONOCYTES % (MANUAL) 2 % (0-11.0); NEUTROPHILS % (MANUAL) 85 (42-76)
[2022-02-18] MEDS: PANTOPRAZOLE 40 MG/PACK PACK GT SCH (09:05)
[2022-02-18] MEDS: BUMETANIDE (1 MG) 1 MG TABLET GT SCH (09:05)
[2022-02-18] MEDS: FLUCONAZOLE (100 MG) 100 MG TABLET PO SCH (09:05)
[2022-02-18] MEDS: MEROPENEM 500 MG in IV NS 0.9% 50 ML IV SCH ×2 (09:05→21:48)
[2022-02-18] MEDS: ZINC SULFATE 220 MG CAPSULE GT SCH (09:05)
[2022-02-18] MEDS: HEPARIN SODIUM, PORCINE 5000 UNITS/1 ML VIAL SQ SCH ×2 (09:07→17:47)
--- NOTE | 2022-02-18 09:30 | NUR ---
RN NOTES DUE MEDS GIVEN
[2022-02-18 09:45] LABS: CALCIUM, SERUM 13.1 mg/dL (8.5-10.1)
--- NOTE | 2022-02-18 09:48 | NUR ---
RN NOTES CALCIUM LEVEL 13.10. CRITICAL RESULT RELAYED TO SUSAN VARGHESE NP
--- NOTE | 2022-02-18 11:09 | NUR ---
WOUND CARE CONSULT: PT PRESENTS WITH FRAGILE SKIN AND AREAS OF OPEN SKIN, SACRAL STAGE 4 ULCER, RT BUTTOCK UNSTAGEABLE ULCER, DISCOLORATION TO RT TOES, RT SHOULDER OPEN SKIN, LEFT BUTTOCK SCARRING AND OPEN SKIN TO SCROTUM, ALL PRESENT ON ADMISSION. DR ANDERSON CALLED FOR SURGICAL CONSULT. DISCUSSED SKIN PROTECTION WITH NURSING STAFF. PT NOTED TO BE SCRATCHING HIS SKIN AT TIMES. PT IS ON PHYLLIS ISOFLEX LOW AIRLOSS BED. M D IN AGREEMENT WITH PLAN OF CARE.
--- NOTE | 2022-02-18 11:24 | NUR ---
TD RN Notes: Pt "scratching" pulling at lines at times. Mittens ordered per MD. Will reevaluate.
[2022-02-18] MEDS: Z GUARD REMEDY 4 OZ OINT TP SCH (11:29)
[2022-02-18 12:00] VITALS: BP 156/76
[2022-02-18] MEDS ORDERED: VANCOMYCIN 1 GM in IV D5W 250 ML IV SCH (12:00)
[2022-02-18] MEDS ORDERED: LIDOCAINE 1%-EPI 1:100,000 20 ML VIAL TP ONE (15:00)
[2022-02-18] MEDS ORDERED: SILVER NITRATE APPLICATOR 1 EA BOX TP SCH (15:00)
[2022-02-18] MEDS: THERAHONEY GEL 1.5 OZ TUBE TP SCH (15:50)
[2022-02-18 16:00] VITALS: BP 158/74
[2022-02-18] MEDS: ASCORBIC ACID 500 MG TABLET GT SCH (17:47)
--- NOTE | 2022-02-18 18:41 | NUR ---
RN CLOSING NOTES: PATIENT IN BED AWAKE, OBTUNDED. ON MECHANICAL VENT WITH SETTING OF AC 18, TIDAL VOLUME 500, FI02 40, PEEP 5. NO S/S OF RESPIRATORY DISTRESS AT THIS TIME. ON TELEMETRY MONITORING OF SR WITH HR OF 78. PATIENT HAS IV ACCESS ON LEFT AC # 20 WITH NS @ 75 ML/HR AND HAS SALINE LOCK ON RIGHT HAND # 20. GTUBE WITH NEPHRO RUNNING AT 40ML/HR. MITTEN PLACED ON LEFT HAND, NOTED WITH GOOD CIRCULATION, RELEASED EVERY [address] ME[address] PL[address]. BED LOCKED AND IN LOWEST POSITION, BED ALARM ON. CALL LIGHT WITHIN REACH. WILL ENDORSE TO NEXT SHIFT NURSE FOR HAMILTON.
--- NOTE | 2022-02-18 19:10 | NUR ---
WORKFORCE INVESTMENT ACT CAREER MANAGER OPENING NOTES: RECEIVED PATIENT IN BED, ASLEEP,EASILY AROUSABLE TO TOUCH AND VOICE, NON VERBAL, OBTUNDED. NO S/S OF DISTRESS NOTED. NOT IN PAIN. WITH LEFT HAND MITTEN ON, CHECKED CMS, WNL, NOTED A VERY SMALL BRUISE ON THE BASE OF THE FIRST FINGER. WITH KNUTSON CATHETER INTACT DRAINING CLEAR YELLOW URINE. RIGHT ARM CONTRACTED.WITH GT FEEDING RUNNING AT 40ML/HR.HOB ELEVATED AT ALL TIMES.
--- NOTE | 2022-02-18 19:10 | NUR ---
ON TELE MONITOR WITH SINUS 82.
[2022-02-18 20:00] VITALS: BP 165/85
[2022-02-18] MEDS: Z GUARD REMEDY 4 OZ OINT TP PRN (23:23)
[2022-02-19] VITALS: BP 151/66
[2022-02-19] MEDS: INSULIN REGULAR, HUMAN 100 UNIT/ML 3 ML VIAL SQ PRN ×2 (00:20→06:28)
--- NOTE | 2022-02-19 00:20 | NUR ---
BLOOD SUGAR CHECKED= 121, NO INSULIN GIVEN.
[2022-02-19 04:00] VITALS: BP 155/80
[2022-02-19] MEDS: LANTHANUM CARBONATE 500 MG TAB.CHEW GT SCH ×3 (05:29→20:58)
[2022-02-19] MEDS: GABAPENTIN 100 MG CAPSULE PO SCH ×3 (05:29→20:56)
[2022-02-19] MEDS: DILTIAZEM HCL 30 MG TABLET GT SCH ×3 (05:31→21:01)
[2022-02-19] MEDS: BLOOD SUGAR DIAGNOSTIC 1 EACH STRIP IN SCH ×4 (06:00→17:29)
--- NOTE | 2022-02-19 06:29 | NUR ---
blood sugar lpuzsoo=675, no insulin given.
--- NOTE | 2022-02-19 06:30 | NUR ---
FIBERGLASS BOAT BUILDER CLOSING NOTES: PATIENT IN BED, ASLEEP.NO S/S OF DISTRESS NOTED. NOT IN PAIN. BED ALARM ON. BED IN LOWEST AND LOCKED POSITION. HOB ELEVATED. GT DRESSING CHANGED. HEELS OFFLOADED AT ALL TIMES. TURNED AND REPOSITIONED Q 2HOURS.
--- NOTE | 2022-02-19 07:10 | NUR ---
RN OPEN NOTE\ RECEIVED PATIENT IN BED, OBTUNDED, BOTH EYES CLOSED. ON TRACH TO VENT SETTING: S#6, AC= 18, FH=916, FIO2= 40, PEEP=5 AND PT TOLERATED WELL. PAIENTB HAS IV ACCESS ON LAC#20G INTACT AND PATENT. NO S/S OF INFILTRATIONS. NO FACIAL GRIMACING NOTED. NO ACUTE DISTRESS. ALL SAFETY MEASURES IN PLACE. BED IN LOWEST POSITION AND LOCKED, PLACE CALL LIGHT WITHIN REACH, SIDE RAILS UP X3. WILL CONTINUE TO MONITOR.
[2022-02-19 07:29] LABS: BASOPHILS % (AUTO) 0.1 % (0.0-2.0); HEMATOCRIT 24 % (39-51); HEMOGLOBIN 7.9 g/dL (13.5-17.5); LYMPHOCYTES # (AUTO) 1.8 K/uL (0.8-4.8); LYMPHOCYTES % (AUTO) 6.4 % (20.0-44.0); MEAN CORPUSCULAR HGB CONC 33 g/dl (31.0-36.0); MEAN CORPUSCULAR VOLUME 94 fL (80-96); MONOCYTES # (AUTO) 1.6 K/uL (0.1-1.30); MONOCYTES % (AUTO) 5.7 % (2.0-12.0); NEUTROPHILS # (AUTO) 24.4 K/uL (1.8-8.9); NEUTROPHILS % (AUTO) 87.8 % (43.0-81.0); PLATELET COUNT (AUTO) 542 K/uL (150-450); RED BLOOD CELL COUNT(AUTO) 2.58 MIL/uL (4.5-6.0); WHITE BLOOD COUNT (AUTO) 27.7 K/uL (4.3-11.0)
[2022-02-19 07:52] LABS: CREATININE 3.4 mg/dL (0.6-1.3); MAGNESIUM 2.4 mg/dL (1.8-2.4); PHOSPHORUS 5.3 mg/dL (2.5-4.9); POTASSIUM 3.3 mmol/L (3.5-5.1)
[2022-02-19 07:55] LABS: CALCIUM, SERUM 13.1 mg/dL (8.5-10.1)
[2022-02-19 08:00] VITALS: BP 154/78
[2022-02-19] MEDS: THERAHONEY GEL 1.5 OZ TUBE TP SCH (08:55)
[2022-02-19] MEDS: Z GUARD REMEDY 4 OZ OINT TP PRN (08:55)
[2022-02-19] MEDS: ZINC SULFATE 220 MG CAPSULE GT SCH (08:57)
[2022-02-19] MEDS: FLUCONAZOLE (100 MG) 100 MG TABLET PO SCH (08:57)
[2022-02-19] MEDS: HEPARIN SODIUM, PORCINE 5000 UNITS/1 ML VIAL SQ SCH ×2 (08:57→16:04)
[2022-02-19] MEDS: Z GUARD REMEDY 4 OZ OINT TP SCH (08:58)
[2022-02-19] MEDS: BUMETANIDE (1 MG) 1 MG TABLET GT SCH (08:58)
[2022-02-19] MEDS: PANTOPRAZOLE 40 MG/PACK PACK GT SCH (08:58)
[2022-02-19] MEDS: MEROPENEM 500 MG in IV NS 0.9% 50 ML IV SCH (09:00)
--- NOTE | 2022-02-19 09:12 | NUR ---
patient w/ multiple iv antibiotics only have one line,requested for midline.
[2022-02-19] MEDS: VITAMINS A AND D 56.7 GM TUBE TP SCH (11:57)
[2022-02-19 12:00] VITALS: BP 169/92
[2022-02-19] MEDS ORDERED: VANCOMYCIN 1 GM in IV D5W 250 ML IV SCH (12:00)
--- NOTE | 2022-02-19 12:17 | NUR ---
yvon fink patient has Vanco level 24 , called to the pharmacy order to hold Vancomycin received
[2022-02-19] MEDS ORDERED: IV NS 0.9% 500 ML BAG IV ONE (12:30)
[2022-02-19] MEDS ORDERED: IV 1/2NS 1000 ML 1,000 ML IV SCH (12:30)
[2022-02-19] MEDS ORDERED: PAMIDRONATE 90 MG in IV NS 0.9% 500 ML IV ONE (13:00)
[2022-02-19] MEDS ORDERED: IV NS 0.9% 1,000 ML IV PRN (13:30)
[2022-02-19] MEDS ORDERED: VORICONAZOLE 200 MG TABLET PO SCH (14:00)
[2022-02-19] MEDS ORDERED: DOSING PER PHARMACY-AMIKACI IV XX PRN (14:00)
[2022-02-19] MEDS: CEFEPIME 1 GM in IV D5W 50 ML IV SCH (15:15)
[2022-02-19] MEDS: AMIKACIN 400 MG in IV D5W 100 ML IV SCH (15:50)
[2022-02-19 16:00] VITALS: BP 170/93
[2022-02-19] MEDS: VORICONAZOLE 200 MG TABLET PO SCH ×2 (16:07→20:56)
[2022-02-19] MEDS: ASCORBIC ACID 500 MG TABLET GT SCH (17:23)
--- NOTE | 2022-02-19 18:37 | NUR ---
RN CLOSING NOTE PATIENT IN BED AWAKE, OBTUNDED. ON MECHANICAL VENT WITH SETTING OF AC 18, TIDAL VOLUME 500, FI02 40, PEEP 5. NO S/S OF RESPIRATORY DISTRESS AT THIS TIME. ON TELEMETRY MONITORING OF SR WITH HR OF 78. PATIENT HAS IV ACCESS ON LEFT HILDA MID LINE 18 G @ 75 ML/HR RUNNING . GTUBE WITH NEPHRO RUNNING AT 40ML/HR. MITTEN PLACED ON LEFT HAND, NOTED WITH GOOD CIRCULATION, RELEASED EVERY [address] MEAS[address] IN PL[address]. BED LOCKED AND IN LOWEST POSITION, BED ALARM ON. CALL LIGHT WITHIN REACH. WILL ENDORSE TO NEXT SHIFT NURSE FOR HAMILTON. Addendum: 02/19/22 at 1845 by KEANU MENDEZ RN CHANGE IVF TO 1/2 NS
[2022-02-19] MEDS ORDERED: IV 1/2NS 1000 ML 1,000 ML IV PRN (19:00)
--- NOTE | 2022-02-19 19:10 | NUR ---
RN NOTES: PATIENT IN BED AWAKE, OBTUNDED. ON MECHANICAL VENT WITH SETTING OF AC 18, TIDAL VOLUME 500, FI02 40, PEEP 5, NO SIGN OF RESPIRATORY DISTRESS, NON LABORED BREATHING,ALERT, OBTUNDED, NON VERBAL, ON TELE MONITOR SR-88, ON KNUTSON CATH DRAINING INTO DARK YELLOWISH COLORED URINE AT 100 CC LEVEL, (+)RIGHT ARM CONTRACTURES, LEFT HAND MITTEN ON, GOOD CIRCULATION, ON G-TUBE FEEDING OF NEPHRO AT 40 ML/HR, HILDA MIDLINE INTACT, IVF OF LR AT 75 ML/HR ONGOING, KEPT ON CLOSE WATCH. -SAFETY, ASPIRATION AND FALL PRECAUTION OBSERVED, KEPT CALL LIGHT WITHIN EASY REACH.
[2022-02-19 20:00] VITALS: BP 165/88
--- NOTE | 2022-02-19 20:13 | NUR ---
RN NOTES: TURNING AND REPOSITIONING DONE.
[2022-02-19] MEDS: DOXYCYCLINE 100 MG in IV D5W 100 ML IV SCH (20:55)
[2022-02-20] VITALS: BP 158/81
[2022-02-20] MEDS: BLOOD SUGAR DIAGNOSTIC 1 EACH STRIP IN SCH ×4 (00:07→17:11)
[2022-02-20] MEDS: INSULIN REGULAR, HUMAN 100 UNIT/ML 3 ML VIAL SQ PRN (00:08)
--- NOTE | 2022-02-20 00:09 | NUR ---
RN NOTES: BLOOD SUGAR CHECKED-101, NO INSULIN PER SCALE, CONTINUE FEEDING WITH NEPHRO AT 40ML/HR VIA G-TUBE.
--- NOTE | 2022-02-20 01:50 | NUR ---
RN NOTES: -AT 0000 PERIODS OF RESTLESSNESS TRYING TO REMOVE TUBINGS, ORDER RENEW FOR SOFT LH MITTENS.KEPT ON CLOSE WATCH.
[2022-02-20] MEDS: CEFEPIME 1 GM in IV D5W 50 ML IV SCH ×2 (02:04→15:30)
--- NOTE | 2022-02-20 03:04 | NUR ---
RN NOTES: MORNING CARE DONE, BED BATH RENDERED, DRESSING DONE ON THE SACRAL AREA,CLEAN AND CHANGE.REPOSITIONED AND OFF LOADING OBSERVED.
[2022-02-20 04:00] VITALS: BP 166/89
[2022-02-20] MEDS: GABAPENTIN 100 MG CAPSULE PO SCH ×3 (04:45→21:06)
[2022-02-20] MEDS: DILTIAZEM HCL 30 MG TABLET GT SCH ×3 (04:45→21:15)
[2022-02-20] MEDS: LANTHANUM CARBONATE 500 MG TAB.CHEW GT SCH ×3 (04:45→21:07)
[2022-02-20 06:52] LABS: BASOPHILS % (AUTO) 0.1 % (0.0-2.0); EOSINOPHILS % (AUTO) 1.4 % (0.0-6.0); HEMATOCRIT 23 % (39-51); HEMOGLOBIN 7.7 g/dL (13.5-17.5); LYMPHOCYTES # (AUTO) 2.1 K/uL (0.8-4.8); LYMPHOCYTES % (AUTO) 7.4 % (20.0-44.0); MEAN CORPUSCULAR HGB CONC 33 g/dl (31.0-36.0); MEAN CORPUSCULAR VOLUME 91 fL (80-96); MONOCYTES # (AUTO) 2.4 K/uL (0.1-1.30); MONOCYTES % (AUTO) 8.3 % (2.0-12.0); NEUTROPHILS # (AUTO) 23.3 K/uL (1.8-8.9); NEUTROPHILS % (AUTO) 82.8 % (43.0-81.0); PLATELET COUNT (AUTO) 577 K/uL (150-450); RED BLOOD CELL COUNT(AUTO) 2.56 MIL/uL (4.5-6.0); WHITE BLOOD COUNT (AUTO) 28.2 K/uL (4.3-11.0)
[2022-02-20 07:11] LABS: CALCIUM, SERUM 12.6 mg/dL (8.5-10.1); MAGNESIUM 2.1 mg/dL (1.8-2.4)
--- NOTE | 2022-02-20 07:15 | NUR ---
RN OPENING NOTE PATIENT IS AWAKE LAYING ON THE BED A&OX1 OBTUNDED. ALL VSS, PATIENT SATTING AT 96% ON TRACH RATE OF 18, TV 500, PEEP 5. SR. VOIDING VIA KNUTSON PATENT DRAINING BELOW THE BLADDER. IV LAC #290G HILDA PATENT, INTACT, AND FLUSHED WITH NS. DIET NEPRO @40. ALL SAFETY FALL PRECAUTIONS IN PLACE BED IN LOWEST POSITION, SIDE RAILS UP, BED LOCK ON, BED ALARM ON, CALL LIGHT WITHIN REACH. WILL CONTINUE TO MONITOR.
[2022-02-20 07:35] LABS: POTASSIUM 2.7 mmol/L (3.5-5.1)
--- NOTE | 2022-02-20 07:37 | NUR ---
RN NOTES: PATIENT IS ASLEEP, ON VENTILATOR, SPO2-100% NO SIG OF DISTRESS, STILL ON LEFT AND MITTENS,HILDA-ML WITH IVF LR AT 75 ML/HR ONGOING,DRESSING ON SACRAL AND RIGHT BUTTOCKS DECUB DONE, G-TUBE SITE DRESSING DONE, FOR LABS THIS MORNING,ENDORSED FOR CONTINUITY OF CARE. Addendum: 02/20/22 at 0752 by RONY MATA RN ADDED NOTES: ON TELE MONITOR SR-BBB RATE-80'S.
[2022-02-20 08:00] VITALS: BP 143/85
[2022-02-20] MEDS: HEPARIN SODIUM, PORCINE 5000 UNITS/1 ML VIAL SQ SCH ×2 (09:36→17:30)
[2022-02-20] MEDS: DOXYCYCLINE 100 MG in IV D5W 100 ML IV SCH ×2 (09:36→21:07)
[2022-02-20] MEDS: PANTOPRAZOLE 40 MG/PACK PACK GT SCH (09:37)
[2022-02-20] MEDS: ZINC SULFATE 220 MG CAPSULE GT SCH (09:37)
[2022-02-20] MEDS: BUMETANIDE (1 MG) 1 MG TABLET GT SCH (09:37)
[2022-02-20] MEDS: VORICONAZOLE 200 MG TABLET PO SCH ×2 (09:37→21:06)
[2022-02-20] MEDS: THERAHONEY GEL 1.5 OZ TUBE TP SCH (09:38)
[2022-02-20] MEDS: VITAMINS A AND D 56.7 GM TUBE TP SCH (09:38)
[2022-02-20] MEDS: Z GUARD REMEDY 4 OZ OINT TP SCH (09:38)
[2022-02-20] MEDS: POTASSIUM CHLORIDE 20 MEQ TAB.PRT.SR PO SCH (09:41)
[2022-02-20] MEDS: Potassium Chloride 20 MEQ in IV NS 0.9% 1,000 ML IV SCH ×2 (11:02→23:20)
[2022-02-20 12:00] VITALS: BP 163/93
[2022-02-20] MEDS ORDERED: VANCOMYCIN 1 GM in IV D5W 250 ML IV SCH (12:00)
[2022-02-20 16:00] VITALS: BP 165/91
[2022-02-20] MEDS: ASCORBIC ACID 500 MG TABLET GT SCH (17:30)
--- NOTE | 2022-02-20 19:08 | NUR ---
ending report patient stable all vss care endorsed to shift nurse manager.
--- NOTE | 2022-02-20 19:30 | NUR ---
RN OPENING NOTE RECEIVED PATIENT IN BED AWAKE, A/OX1, NON VERBAL. ON TRACH RATE OF 18, TV 500, PEEP 5. TOLERATING WELL. NO S/SX OF ACUTE DISTRESS NOTED AT THIS TIME. ON TELE MONITOR SHOWING SR. IV ACCESS NOTED IN LAC #20 G RUNNING KMEQ @ 75 CC/HR AND HILDA ML, BOTH PATENT AND INTACT. LEFT HAND MITTEN NOTED. ON GTF OF NEPRO AT 40 CC/HR. KNUTSON CATHETER NOTED DRAINING YELLOW URINE VIA GRAVITY. ALL SAFETY FALL PRECAUTIONS IN PLACE: BED IN LOWEST POSITION, SIDE RAILS UP, BED LOCK ON, BED ALARM ON, CALL LIGHT WITHIN REACH. WILL CONTINUE TO MONITOR THE PT.
[2022-02-20 20:00] VITALS: BP 148/83
[2022-02-21] VITALS: BP 150/78
[2022-02-21] MEDS: BLOOD SUGAR DIAGNOSTIC 1 EACH STRIP IN SCH ×5 (01:18→22:59)
[2022-02-21] MEDS: INSULIN REGULAR, HUMAN 100 UNIT/ML 3 ML VIAL SQ PRN ×4 (01:19→17:31)
[2022-02-21] MEDS: AMIKACIN 400 MG in IV D5W 100 ML IV SCH (02:06)
[2022-02-21] MEDS: CEFEPIME 1 GM in IV D5W 50 ML IV SCH ×2 (03:09→14:29)
[2022-02-21 04:00] VITALS: BP 147/84
[2022-02-21] MEDS: GABAPENTIN 100 MG CAPSULE PO SCH ×3 (04:04→20:47)
[2022-02-21] MEDS: DILTIAZEM HCL 30 MG TABLET GT SCH ×3 (04:05→21:00)
[2022-02-21] MEDS: LANTHANUM CARBONATE 500 MG TAB.CHEW GT SCH ×3 (04:09→20:47)
--- NOTE | 2022-02-21 06:50 | NUR ---
RN CLOSING NOTE NI SIGNIFICANT CHANGES THROUGHOUT THE SHIFT. ALL DUE MEDS GIVEN. NEEDS ATTENDED TO. SAFETY MEASURES IN PLACE. CALL LIGHT WITHIN REACH. WILL ENDORSE TO AM SHIFT NURSE FOR HAMILTON.
[2022-02-21 07:20] LABS: BASOPHILS % (AUTO) 0.2 % (0.0-2.0); EOSINOPHILS % (AUTO) 4.3 % (0.0-6.0); HEMATOCRIT 27 % (39-51); HEMOGLOBIN 9.1 g/dL (13.5-17.5); LYMPHOCYTES # (AUTO) 2.8 K/uL (0.8-4.8); LYMPHOCYTES % (AUTO) 10.9 % (20.0-44.0); MEAN CORPUSCULAR HGB CONC 34 g/dl (31.0-36.0); MEAN CORPUSCULAR VOLUME 91 fL (80-96); MONOCYTES # (AUTO) 1.8 K/uL (0.1-1.30); MONOCYTES % (AUTO) 6.8 % (2.0-12.0); NEUTROPHILS # (AUTO) 20.1 K/uL (1.8-8.9); NEUTROPHILS % (AUTO) 77.8 % (43.0-81.0); PLATELET COUNT (AUTO) 527 K/uL (150-450); RED BLOOD CELL COUNT(AUTO) 2.97 MIL/uL (4.5-6.0); WHITE BLOOD COUNT (AUTO) 25.8 K/uL (4.3-11.0)
--- NOTE | 2022-02-21 07:27 | NUR ---
PRESS HAND OPENING NOTE RECEIVED PATIENT IN BED AWAKE, A/OX1, NON VERBAL. ON TRACH RATE OF 18, TV 500, PEEP 5. TOLERATING WELL. NO S/SX OF RESPIRATORY DISTRESS NOTED AT THIS TIME. ON TELE MONITOR WITH CURRENT READING OF SINUS RHYTHM, HR 90. IV ACCESS NOTED IN HILDA ML INTACT AND PATENT WITH KMEQ INFUSING AT 75ML/HR. PT NOTED WITH LEFT HAND MITTEN. ON GTF OF NEPRO AT 40 CC/HR. KEPT HEAD OF BED ELEVATED. KNUTSON CATHETER IN PLACE AND DRAINING WELL. SAFETY PRECAUTIONS IN PLACE: BED IN LOWEST AND LOCKED POSITION, SIDE RAILS UP, BED ALARM ON, AND CALL LIGHT WITHIN REACH. WILL CONTINUE TO MONITOR THE PT.
[2022-02-21 07:55] LABS: CALCIUM, SERUM 12.4 mg/dL (8.5-10.1); CREATININE 2.7 mg/dL (0.6-1.3); PHOSPHORUS 3.9 mg/dL (2.5-4.9); POTASSIUM 3.4 mmol/L (3.5-5.1)
[2022-02-21 08:00] VITALS: BP 150/79
[2022-02-21] MEDS ORDERED: IV NS 0.9% 500 ML IV ONE (09:00)
[2022-02-21] MEDS: ZINC SULFATE 220 MG CAPSULE GT SCH (09:11)
[2022-02-21] MEDS: POTASSIUM CHLORIDE 20 MEQ TAB.PRT.SR PO SCH (09:11)
[2022-02-21] MEDS: PANTOPRAZOLE 40 MG/PACK PACK GT SCH (09:11)
[2022-02-21] MEDS: VORICONAZOLE 200 MG TABLET PO SCH ×2 (09:12→20:47)
[2022-02-21] MEDS: BUMETANIDE (1 MG) 1 MG TABLET GT SCH (09:12)
[2022-02-21] MEDS: DOXYCYCLINE 100 MG in IV D5W 100 ML IV SCH ×2 (09:20→20:42)
[2022-02-21] MEDS: HEPARIN SODIUM, PORCINE 5000 UNITS/1 ML VIAL SQ SCH ×2 (09:23→17:05)
[2022-02-21] MEDS: THERAHONEY GEL 1.5 OZ TUBE TP SCH (09:47)
[2022-02-21] MEDS: VITAMINS A AND D 56.7 GM TUBE TP SCH (09:47)
[2022-02-21] MEDS: Z GUARD REMEDY 4 OZ OINT TP SCH (09:50)
[2022-02-21 10:31] LABS: BAND % (MANUAL) 7 % (0.0-5.0); EOSINOPHILS % (MANUAL) 3 % (0-4); LYMPHOCYTES % (MANUAL) 10 % (16-48); METAMYELOCYTES % 2 % (0-0); MONOCYTES % (MANUAL) 4 % (0-11.0); MYELOCYTES % 2 % (0-0); NEUTROPHILS % (MANUAL) 72 (42-76)
[2022-02-21 12:00] VITALS: BP 152/80
[2022-02-21] MEDS: Potassium Chloride 20 MEQ in IV NS 0.9% 1,000 ML IV SCH (13:22)
[2022-02-21 16:00] VITALS: BP 134/60
[2022-02-21] MEDS: ASCORBIC ACID 500 MG TABLET GT SCH (17:04)
--- NOTE | 2022-02-21 18:37 | NUR ---
INFERTILITY MEDICAL ASSISTANT CLOSING NOTE PATIENT IN BED AWAKE, A/O X0, NON VERBAL. ON TRACH RATE OF 18, TV 500, PEEP 5. TOLERATING WELL. NO S/SX OF RESPIRATORY DISTRESS NOTED AT THIS TIME. ON TELE MONITOR WITH CURRENT READING OF SINUS RHYTHM, HR 80. NO SIGNS OF CARDIAC DISTRESS NOTED AT THIS TIME. IV ACCESS NOTED IN HILDA ML INTACT AND PATENT WITH KMEQ INFUSING AT 75ML/HR. PT'S LEFT HAND MITTEN IN PLACE WITH NO CIRCULATION OR SKIN ISSUES NOTED. ON GTF OF NEPRO AT 40 CC/HR. KEPT HEAD OF BED ELEVATED. KNUTSON CATHETER IN PLACE AND DRAINING WELL. ALL NEEDS ATTENDED. KEPT CLEAN AND COMFORTABLE. TURNED AND REPOSITIONED Q2HRS AND NEEDED. SAFETY PRECAUTIONS IN PLACE: BED IN LOWEST AND LOCKED POSITION, SIDE RAILS UP, BED ALARM ON, AND CALL LIGHT WITHIN REACH. WILL ENDORSE TO PRINCIPAL TECHNOLOGIST NURSE FOR HAMILTON.
--- NOTE | 2022-02-21 19:35 | NUR ---
DASHA/WAFER FABRICATION OPERATOR REPORT RECIEVED FROM DAY SHIFT NURSE, SEE FLOWSHEET FOR ASSESSMENT, PT CURRENTLY HAS MANY SKIN ISSUES WHICH ARE ADDRESSED ON THE FLOWSHEET ALONG WITH THE INTERVENTIONS TO EACH. PT TURNED AND REPOSITIONED FOR COMFORT AND CARE. WILL CONTINUE TO MONITOR THIS PT
[2022-02-21 20:00] VITALS: BP 131/75
--- NOTE | 2022-02-21 21:30 | NUR ---
DASHA/POLITICAL ANALYST PT TURNED AND REPOSITIONED FOR COMFORT AND CARE. PT WAS AT THIS TIME PROVIDED ORAL CARE. PT TOLERATED THIS WELL, REMAINS ON CURRENT VENT SETTINGS. WILL CONTINUE TO MONITOR THIS PT.
[2022-02-22] VITALS: BP 145/71
--- NOTE | 2022-02-22 00:45 | NUR ---
DASHA/DRAWING IN MACHINE TENDER HELPER PT AT THIS TIME WAS GIVEN PM CARE. PT REMAINS ON CURRENT VENT SETTINGS, WITH SATURATION AT 100%. PT WAS THEN TURNED AND REPOSITIONED FOR COMFORT AND CARE. PT TOLERATED THIS WELL, WILL CONTINUE TO MONITOR THIS PT.
[2022-02-22 04:00] VITALS: BP 152/77
[2022-02-22] MEDS: DILTIAZEM HCL 30 MG TABLET GT SCH ×4 (04:24→21:22)
[2022-02-22] MEDS: Potassium Chloride 20 MEQ in IV NS 0.9% 1,000 ML IV SCH ×3 (04:24→20:57)
[2022-02-22] MEDS: GABAPENTIN 100 MG CAPSULE PO SCH ×3 (04:24→21:21)
[2022-02-22] MEDS: LANTHANUM CARBONATE 500 MG TAB.CHEW GT SCH ×3 (04:25→21:22)
[2022-02-22] MEDS: NEPRO 1,000 ML BOTTLE GT PRN (05:16)
[2022-02-22] MEDS: BLOOD SUGAR DIAGNOSTIC 1 EACH STRIP IN SCH ×4 (06:00→23:37)
--- NOTE | 2022-02-22 06:39 | NUR ---
DASHA/WATER METER READER CALLED [facility] [phone] FOR SACRAL & RIGHT HIP DEBRIDEMENT, HOWEVER NO ANSWER DID LEAVE MESSAGE TO CALL BACK DASHA DAY NURSE [phone].
[2022-02-22 07:30] LABS: BASOPHILS # (AUTO) 0.1 K/uL (0.0-0.2); BASOPHILS % (AUTO) 0.3 % (0.0-2.0); EOSINOPHILS % (AUTO) 3.5 % (0.0-6.0); HEMATOCRIT 27 % (39-51); HEMOGLOBIN 8.7 g/dL (13.5-17.5); LYMPHOCYTES # (AUTO) 2.7 K/uL (0.8-4.8); LYMPHOCYTES % (AUTO) 9.6 % (20.0-44.0); MEAN CORPUSCULAR HGB CONC 32 g/dl (31.0-36.0); MEAN CORPUSCULAR VOLUME 92 fL (80-96); MONOCYTES # (AUTO) 1.6 K/uL (0.1-1.30); MONOCYTES % (AUTO) 5.6 % (2.0-12.0); NEUTROPHILS # (AUTO) 22.8 K/uL (1.8-8.9); PLATELET COUNT (AUTO) 510 K/uL (150-450); WHITE BLOOD COUNT (AUTO) 28.2 K/uL (4.3-11.0)
--- NOTE | 2022-02-22 07:36 | NUR ---
RN OPENING NOTE RECEIVED PATIENT IN BED AWAKE, A/OX1, NON VERBAL. ON TRACH RATE OF 18, TV 500, PEEP 5. TOLERATING WELL. NO S/SX OF RESPIRATORY DISTRESS NOTED AT THIS TIME. ON TELE MONITOR WITH CURRENT READING OF SINUS RHYTHM, HR 90. IV ACCESS NOTED IN HILDA ML INTACT AND PATENT WITH KMEQ INFUSING AT 75ML/HR. PT NOTED WITH LEFT WRIST RESTRAINT. ON GTF OF NEPRO AT 40 CC/HR. KEPT HEAD OF BED ELEVATED. KNUTSON CATHETER IN PLACE AND DRAINING WELL. SAFETY PRECAUTIONS IN PLACE: BED IN LOWEST AND LOCKED POSITION, SIDE RAILS UP, BED ALARM ON, AND CALL LIGHT WITHIN REACH. WILL CONTINUE PLAN OF CARE AND ANTICIPATE NEEDS.
[2022-02-22 08:00] VITALS: BP 140/74
[2022-02-22] MEDS: VORICONAZOLE 200 MG TABLET PO SCH ×2 (08:44→21:21)
[2022-02-22] MEDS: BUMETANIDE (1 MG) 1 MG TABLET GT SCH (08:44)
[2022-02-22] MEDS: ZINC SULFATE 220 MG CAPSULE GT SCH (08:44)
[2022-02-22] MEDS: PANTOPRAZOLE 40 MG/PACK PACK GT SCH (08:44)
[2022-02-22] MEDS: POTASSIUM CHLORIDE 20 MEQ TAB.PRT.SR PO SCH (08:45)
[2022-02-22] MEDS: THERAHONEY GEL 1.5 OZ TUBE TP SCH (08:45)
[2022-02-22] MEDS: Z GUARD REMEDY 4 OZ OINT TP SCH (08:45)
[2022-02-22] MEDS: DOXYCYCLINE 100 MG in IV D5W 100 ML IV SCH ×2 (08:45→21:22)
[2022-02-22] MEDS: VITAMINS A AND D 56.7 GM TUBE TP SCH (08:46)
[2022-02-22] MEDS: HEPARIN SODIUM, PORCINE 5000 UNITS/1 ML VIAL SQ SCH ×2 (08:51→17:17)
[2022-02-22 09:05] LABS: CREATININE 2.5 mg/dL (0.6-1.3); MAGNESIUM 1.8 mg/dL (1.8-2.4); PHOSPHORUS 3.5 mg/dL (2.5-4.9); POTASSIUM 4.5 mmol/L (3.5-5.1)
[2022-02-22 09:52] LABS: BAND % (MANUAL) 5 % (0.0-5.0); BASOPHILS % (MANUAL) 0 % (0.0-2.0); EOSINOPHILS % (MANUAL) 2 % (0-4); LYMPHOCYTES % (MANUAL) 7 % (16-48); METAMYELOCYTES % 2 % (0-0); MONOCYTES % (MANUAL) 6 % (0-11.0); MYELOCYTES % 1 % (0-0); NEUTROPHILS % (MANUAL) 77 (42-76)
[2022-02-22 12:00] VITALS: BP 137/82
[2022-02-22] MEDS: CEFEPIME 1 GM in IV D5W 50 ML IV SCH (14:14)
--- NOTE | 2022-02-22 15:30 | NUR ---
CALLED PHARMACY TO REQUEST PATIENTS AMIKIN FOR 1500 ADMINISTRATION. PER DRY CHAIN PULLER, MEDICATION IS "ON THE WAY OVER"
[2022-02-22 16:00] VITALS: BP 141/78
[2022-02-22] MEDS: AMIKACIN 400 MG in IV D5W 100 ML IV SCH (16:28)
[2022-02-22] MEDS: ASCORBIC ACID 500 MG TABLET GT SCH (17:15)
--- NOTE | 2022-02-22 18:35 | NUR ---
RN CLOSING NOTE PATIENT IN BED AWAKE, A/OX1, NON VERBAL. ON TRACH RATE OF 18, TV 500, PEEP 5. TOLERATING WELL. NO S/SX OF RESPIRATORY DISTRESS NOTED AT THIS TIME. ON TELE MONITOR WITH CURRENT READING OF SINUS RHYTHM, HR 90. IV ACCESS NOTED IN HILDA ML INTACT AND PATENT WITH KMEQ INFUSING AT 75ML/HR. PT NOTED WITH LEFT WRIST RESTRAINT. ON GTF OF NEPRO AT 40 CC/HR. KEPT HEAD OF BED ELEVATED. KNUTSON CATHETER IN PLACE AND DRAINING WELL. SAFETY PRECAUTIONS IN PLACE: BED IN LOWEST AND LOCKED POSITION, SIDE RAILS UP, BED ALARM ON, AND CALL LIGHT WITHIN REACH. ALL DUE MEDICATIONS GIVEN, KEPT CLEAN AND DRY THROUGHOUT SHIFT. WILL ENDORSE TO NIGHTSHIFT RN FOR CONTINUATION OF CARE.
--- NOTE | 2022-02-22 19:38 | NUR ---
METAL ANNEALER OPENING NOTE RECEIVED PATIENT AWAKE IN BED. A/OX1, NON VERBAL. ON TRACH RATE OF 18, TV 500, PEEP 5. NO SOB OR S/S OF RESPIRATORY DISTRESS. ON EXTERNAL PHYSICAL THERAPIST TECHNICIAN READING SR 92. IV ACCESS NOTED HILDA ML, INTACT AND PATENT, RUNNING KMEQ INFUSING AT 75ML/HR. PT NOTED WITH LEFT WRIST RESTRAINT. ON GTF OF NEPRO AT 40 CC/HR. WITH KNUTSON CATHETER IN PLACE AND DRAINING WELL. SAFETY PRECAUTIONS IN PLACE. BED IN LOWEST LOCKED POSITION, SIDE RAILS UP X3, HOB ELEVATED, BED ALARM ON, AND CALL LIGHT AND TABLE WITHIN REACH. ALL NEEDS MET AT THIS TIME.
[2022-02-22 20:00] VITALS: BP 142/76
[2022-02-23] VITALS: BP 124/74
[2022-02-23 04:00] VITALS: BP 118/69
[2022-02-23] MEDS: GABAPENTIN 100 MG CAPSULE PO SCH ×3 (05:18→20:21)
[2022-02-23] MEDS: LANTHANUM CARBONATE 500 MG TAB.CHEW GT SCH ×3 (05:19→20:20)
[2022-02-23] MEDS: DILTIAZEM HCL 30 MG TABLET GT SCH ×3 (05:19→20:26)
[2022-02-23] MEDS: BLOOD SUGAR DIAGNOSTIC 1 EACH STRIP IN SCH ×4 (05:40→23:58)
--- NOTE | 2022-02-23 06:38 | NUR ---
BROKE BEATER OPERATOR CLOSING NOTE PATIENT AWAKE IN BED. A/OX1, NON VERBAL. ON [facility] VENT WITH SETTINGS: AC 18, TV 500, FIO2 30%, AND PEEP 5. NO SOB OR S/S OF RESPIRATORY DISTRESS. ON EXTERNAL SOLAR SALES AMBASSADOR READING SR 90. IV ACCESS NOTED HILDA ML, INTACT AND PATENT, RUNNING K CL 20 MEQ RUNNING @ 75ML/HR. WITH LEFT WRIST RESTRAINT, RELEASED Q2H AND CIRCULATION CHECKED. WITH GTUBE RUNNING NEPRO AT 40 CC/HR. WITH KNUTSON CATHETER IN PLACE AND DRAINING WELL, DRAINED 1500 ML THIS SHIFT. WOUND CARE DONE ORDERED. KEPT CLEAN AND DRY. TURNED AND REPOSITIONED Q2H. ALL DUE MEDS GIVEN ORDERED. SAFETY PRECAUTIONS IN PLACE AT ALL TIMES. BED IN LOWEST LOCKED POSITION, SIDE RAILS UP X3, HOB ELEVATED, BED ALARM ON, AND CALL LIGHT AND TABLE WITHIN REACH. ALL NEEDS MET AT THIS TIME AND WILL ENDORSE TO ONCOMING NURSE FOR HAMILTON.
[2022-02-23 07:02] LABS: ALBUMIN 1.8 g/dL (3.4-5.0); BILIRUBIN,TOTAL 0.3 mg/dL (0.2-1.0); CALCIUM, SERUM 10.6 mg/dL (8.5-10.1); CREATININE 2.5 mg/dL (0.6-1.3); MAGNESIUM 1.7 mg/dL (1.8-2.4); PHOSPHORUS 3.5 mg/dL (2.5-4.9); POTASSIUM 5.1 mmol/L (3.5-5.1); TOTAL PROTEIN, SERUM 7.7 g/dL (6.4-8.2)
[2022-02-23] MEDS: Potassium Chloride 20 MEQ in IV NS 0.9% 1,000 ML IV SCH ×2 (07:03→17:09)
[2022-02-23 07:05] LABS: BASOPHILS # (AUTO) 0.1 K/uL (0.0-0.2); BASOPHILS % (AUTO) 0.4 % (0.0-2.0); EOSINOPHILS % (AUTO) 4.7 % (0.0-6.0); HEMATOCRIT 25 % (39-51); HEMOGLOBIN 8.2 g/dL (13.5-17.5); LYMPHOCYTES # (AUTO) 2.8 K/uL (0.8-4.8); LYMPHOCYTES % (AUTO) 11.8 % (20.0-44.0); MEAN CORPUSCULAR HGB CONC 33 g/dl (31.0-36.0); MEAN CORPUSCULAR VOLUME 94 fL (80-96); MONOCYTES # (AUTO) 1.4 K/uL (0.1-1.30); MONOCYTES % (AUTO) 5.9 % (2.0-12.0); NEUTROPHILS # (AUTO) 18.4 K/uL (1.8-8.9); NEUTROPHILS % (AUTO) 77.2 % (43.0-81.0); PLATELET COUNT (AUTO) 508 K/uL (150-450); RED BLOOD CELL COUNT(AUTO) 2.69 MIL/uL (4.5-6.0); WHITE BLOOD COUNT (AUTO) 23.9 K/uL (4.3-11.0)
--- NOTE | 2022-02-23 07:22 | NUR ---
DIRECTOR GLOBAL SALES OPENING NOTE RECEIVED PATIENT AWAKE IN BED. A/OX1, NON VERBAL. ON TRACH RATE OF 18, TV 500, PEEP 5. NO SOB OR S/S OF RESPIRATORY DISTRESS. ON EXTERNAL SECURITY TEAM LEAD. IV ACCESS NOTED HILDA ML, INTACT AND PATENT, RUNNING KMEQ . PT NOTED WITH LEFT WRIST RESTRAINT. ON GTF OF NEPRO AT 40 CC/HR. WITH KNUTSON CATHETER IN PLACE AND DRAINING WELL. SAFETY PRECAUTIONS IN PLACE. BED IN LOWEST LOCKED POSITION, SIDE RAILS UP X3, HOB ELEVATED, BED ALARM ON, AND CALL LIGHT AND TABLE WITHIN REACH.
[2022-02-23 08:00] VITALS: BP 130/66
[2022-02-23] MEDS: VITAMINS A AND D 56.7 GM TUBE TP SCH (09:00)
[2022-02-23] MEDS: Z GUARD REMEDY 4 OZ OINT TP SCH (09:00)
[2022-02-23] MEDS: THERAHONEY GEL 1.5 OZ TUBE TP SCH (09:00)
[2022-02-23] MEDS: POTASSIUM CHLORIDE 20 MEQ TAB.PRT.SR PO SCH (09:00)
[2022-02-23] MEDS ORDERED: Magnesium 1GM/D5W 100ML PREMIX 100 ML IV SCH (09:30)
[2022-02-23] MEDS: VORICONAZOLE 200 MG TABLET PO SCH ×2 (09:38→20:22)
[2022-02-23] MEDS: BUMETANIDE (1 MG) 1 MG TABLET GT SCH (09:38)
[2022-02-23] MEDS: PANTOPRAZOLE 40 MG/PACK PACK GT SCH (09:38)
[2022-02-23] MEDS: ZINC SULFATE 220 MG CAPSULE GT SCH (09:38)
[2022-02-23 09:45] LABS: BAND % (MANUAL) 2 % (0.0-5.0); BASOPHILS % (MANUAL) 0 % (0.0-2.0); EOSINOPHILS % (MANUAL) 4 % (0-4); LYMPHOCYTES % (MANUAL) 12 % (16-48); MONOCYTES % (MANUAL) 10 % (0-11.0); NEUTROPHILS % (MANUAL) 72 (42-76)
[2022-02-23] MEDS: HEPARIN SODIUM, PORCINE 5000 UNITS/1 ML VIAL SQ SCH (09:55)
[2022-02-23] MEDS: DOXYCYCLINE 100 MG in IV D5W 100 ML IV SCH ×2 (09:57→20:21)
--- NOTE | 2022-02-23 10:30 | NUR ---
RN NOTE HELD PATIENT POTASSIUM DOSE THIS MORNING ALONG WITH KCL IV FLUIDS DUE TO PATIENT POTASSIUM LEVEL 5.1.
[2022-02-23] MEDS: INSULIN REGULAR, HUMAN 100 UNIT/ML 3 ML VIAL SQ PRN ×3 (11:39→23:58)
[2022-02-23 12:05] VITALS: BP 141/73
[2022-02-23] MEDS: CEFEPIME 1 GM in IV D5W 50 ML IV SCH (15:17)
[2022-02-23] MEDS: NEPRO 1,000 ML BOTTLE GT PRN (15:26)
[2022-02-23 16:31] VITALS: BP 130/76
[2022-02-23] MEDS: AMIKACIN 400 MG in IV D5W 100 ML IV SCH (17:03)
[2022-02-23] MEDS: ASCORBIC ACID 500 MG TABLET GT SCH (17:28)
--- NOTE | 2022-02-23 18:14 | NUR ---
RN NOTE PER DR CAROLINE JOHNSON TO DC KCL IV AND START NS 0.9% AT 75MLS HR. ORDERS PLACED
[2022-02-23] MEDS: IV NS 0.9% 1,000 ML IV PRN (18:37)
--- NOTE | 2022-02-23 18:43 | NUR ---
SPRAYER OPERATOR CLOSING NOTE PATIENT AWAKE IN BED. A/OX1, NON VERBAL. ON [facility] VENT WITH SETTINGS: AC 18, TV 500, FIO2 30%, AND PEEP 5. NO SOB OR S/S OF RESPIRATORY DISTRESS. ON EXTERNAL RIDING DOUBLE . IV ACCESS NOTED HILDA ML, INTACT AND PATENT, NS RUNNING @ 75ML/HR. WITH LEFT WRIST RESTRAINT, RELEASED Q2H AND CIRCULATION CHECKED. WITH GTUBE RUNNING NEPRO AT 40 CC/HR. WITH KNUTSON CATHETER IN PLACE AND DRAINING WELL. WOUND CARE DONE ORDERED. KEPT CLEAN AND DRY. TURNED AND REPOSITIONED Q2H. ALL DUE MEDS GIVEN ORDERED. SAFETY PRECAUTIONS IN PLACE AT ALL TIMES. BED IN LOWEST LOCKED POSITION, SIDE RAILS UP X3, HOB ELEVATED, BED ALARM ON, AND CALL LIGHT AND TABLE WITHIN REACH. ALL NEEDS MET AT THIS TIME AND WILL ENDORSE TO ONCOMING NURSE FOR HAMILTON.
--- NOTE | 2022-02-23 19:15 | NUR ---
BAT LATHE OPERATOR CLOSING NOTE PATIENT AWAKE IN BED. A/OX1, NON VERBAL. ON [facility] VENT WITH SETTINGS: AC 18, TV 500, FIO2 30%, AND PEEP 5. NO SOB OR S/S OF RESPIRATORY DISTRESS. ON EXTERNAL CREDENTIALING COORDINATOR . IV ACCESS NOTED HILDA ML, INTACT AND PATENT, NS RUNNING @ 75ML/HR. WITH LEFT WRIST RESTRAINT, RELEASED Q2H AND CIRCULATION CHECKED. WITH GTUBE RUNNING NEPRO AT 40 CC/HR. WITH KNUTSON CATHETER IN PLACE AND DRAINING WELL. KEEP CLEAN AND DRY. TURNED AND REPOSITIONED Q2H. SAFETY PRECAUTIONS IN PLACE AT ALL TIMES. BED IN LOWEST LOCKED POSITION, SIDE RAILS UP X3, HOB ELEVATED, BED ALARM ON, AND CALL LIGHT AND TABLE WITHIN REACH. ALL NEEDS MET AT THIS TIME AND WILL CONTINUE TO MONITOR.
[2022-02-23 20:00] VITALS: BP 135/69
[2022-02-24 00:20] VITALS: BP 137/74
[2022-02-24] MEDS: ACETAMINOPHEN 650 MG/20.3 ML UDC GT PRN (03:34)
--- NOTE | 2022-02-24 03:43 | NUR ---
ACCOUNT SERVICES MANAGER NOTES TYLENOL 650MG GIVEN FOR MILD PAIN WILL CONTINUE TO MONITOR
[2022-02-24 04:10] VITALS: BP 121/74
[2022-02-24] MEDS: DILTIAZEM HCL 30 MG TABLET GT SCH ×3 (04:34→21:42)
[2022-02-24] MEDS: GABAPENTIN 100 MG CAPSULE PO SCH ×3 (04:34→21:39)
[2022-02-24] MEDS: LANTHANUM CARBONATE 500 MG TAB.CHEW GT SCH ×3 (04:34→21:45)
[2022-02-24] MEDS: BLOOD SUGAR DIAGNOSTIC 1 EACH STRIP IN SCH ×3 (06:07→18:19)
[2022-02-24] MEDS: INSULIN REGULAR, HUMAN 100 UNIT/ML 3 ML VIAL SQ PRN ×3 (06:08→18:19)
--- NOTE | 2022-02-24 06:38 | NUR ---
PERFUME AND TOILET WATER MAKER CLOSING NOTE PATIENT AWAKE IN BED. A/OX1, NON VERBAL. ON [facility] VENT WITH SETTINGS: AC 18, TV 500, FIO2 30%, AND PEEP 5. NO SOB OR S/S OF RESPIRATORY DISTRESS. ON EXTERNAL CLOTH OPENER HAND . IV ACCESS NOTED HILDA ML, INTACT AND PATENT, NS RUNNING @ 75ML/HR. WITH LEFT WRIST RESTRAINT, RELEASED Q2H AND CIRCULATION CHECKED. WITH GTUBE RUNNING NEPRO AT 40 CC/HR. WITH KNUTSON CATHETER IN PLACE AND DRAINING WELL. KEEP CLEAN AND DRY. TURNED AND REPOSITIONED Q2H. SAFETY PRECAUTIONS IN PLACE AT ALL TIMES. ALL DUE MEDS GIVEN AND TOLERATED WELL.BED IN LOWEST LOCKED POSITION, SIDE RAILS UP X3, HOB ELEVATED, BED ALARM ON, AND CALL LIGHT AND TABLE WITHIN REACH. ALL NEEDS MET AT THIS TIME AND WILL ENDORSE CARE TO DAY SHIFT NURSE.
[2022-02-24 06:55] LABS: BASOPHILS # (AUTO) 0.1 K/uL (0.0-0.2); BASOPHILS % (AUTO) 0.2 % (0.0-2.0); EOSINOPHILS % (AUTO) 2.9 % (0.0-6.0); HEMATOCRIT 22 % (39-51); LYMPHOCYTES # (AUTO) 2.3 K/uL (0.8-4.8); LYMPHOCYTES % (AUTO) 9.6 % (20.0-44.0); MEAN CORPUSCULAR HGB CONC 32 g/dl (31.0-36.0); MEAN CORPUSCULAR VOLUME 92 fL (80-96); MONOCYTES # (AUTO) 1.5 K/uL (0.1-1.30); MONOCYTES % (AUTO) 6.4 % (2.0-12.0); NEUTROPHILS # (AUTO) 19.1 K/uL (1.8-8.9); NEUTROPHILS % (AUTO) 80.9 % (43.0-81.0); PLATELET COUNT (AUTO) 408 K/uL (150-450); RED BLOOD CELL COUNT(AUTO) 2.35 MIL/uL (4.5-6.0); WHITE BLOOD COUNT (AUTO) 23.6 K/uL (4.3-11.0)
--- NOTE | 2022-02-24 07:10 | NUR ---
QUARRY WORKER OPENING NOTE RECEIVED PATIENT AWAKE IN BED. A/OX1, NON VERBAL. ON TRACH RATE OF 18, TV 500, PEEP 5. NO SOB OR S/S OF RESPIRATORY DISTRESS. ON EXTERNAL SWITCH COUPLER. IV ACCESS NOTED HILDA ML, INTACT AND PATENT . PT NOTED WITH LEFT WRIST RESTRAINT. ON GTF OF NEPRO AT 40 CC/HR. WITH KNUTSON CATHETER IN PLACE AND DRAINING WELL. SAFETY PRECAUTIONS IN PLACE. BED IN LOWEST LOCKED POSITION, SIDE RAILS UP X3, HOB ELEVATED, BED ALARM ON, AND CALL LIGHT AND TABLE WITHIN REACH.
--- NOTE | 2022-02-24 07:12 | NUR ---
TOWER SUPERVISOR NOTES RECEIVED CALL FROM LAB PTS HGB IS 7.0 AND HCT 22 WILL ENDORSE LAB RESULTS TO DAY SHIFT NURSE.
[2022-02-24 07:26] LABS: ALBUMIN 1.8 g/dL (3.4-5.0); BILIRUBIN,TOTAL 0.3 mg/dL (0.2-1.0); CALCIUM, SERUM 10.1 mg/dL (8.5-10.1); CREATININE 2.6 mg/dL (0.6-1.3); PHOSPHORUS 3.9 mg/dL (2.5-4.9); POTASSIUM 4.9 mmol/L (3.5-5.1); TOTAL PROTEIN, SERUM 7.6 g/dL (6.4-8.2)
[2022-02-24 08:00] VITALS: BP 117/60
[2022-02-24] MEDS: VORICONAZOLE 200 MG TABLET PO SCH ×2 (08:13→21:42)
[2022-02-24] MEDS: BUMETANIDE (1 MG) 1 MG TABLET GT SCH (08:13)
[2022-02-24] MEDS: PANTOPRAZOLE 40 MG/PACK PACK GT SCH (08:13)
[2022-02-24] MEDS: ZINC SULFATE 220 MG CAPSULE GT SCH (08:15)
[2022-02-24] MEDS: THERAHONEY GEL 1.5 OZ TUBE TP SCH (08:16)
[2022-02-24] MEDS: Z GUARD REMEDY 4 OZ OINT TP SCH (08:16)
[2022-02-24] MEDS: VITAMINS A AND D 56.7 GM TUBE TP SCH (08:16)
[2022-02-24 09:33] LABS: BAND % (MANUAL) 3 % (0.0-5.0); BASOPHILS % (MANUAL) 0 % (0.0-2.0); EOSINOPHILS % (MANUAL) 2 % (0-4); LYMPHOCYTES % (MANUAL) 10 % (16-48); MONOCYTES % (MANUAL) 6 % (0-11.0); NEUTROPHILS % (MANUAL) 79 (42-76)
[2022-02-24] MEDS: DOXYCYCLINE 100 MG in IV D5W 100 ML IV SCH ×2 (09:55→21:46)
[2022-02-24 12:00] VITALS: BP 111/70
[2022-02-24] MEDS: IV NS 0.9% 1,000 ML IV PRN (13:19)
[2022-02-24] MEDS: CEFEPIME 1 GM in IV D5W 50 ML IV SCH (15:48)
[2022-02-24 16:00] VITALS: BP 116/55
[2022-02-24] MEDS: AMIKACIN 400 MG in IV D5W 100 ML IV SCH (17:15)
[2022-02-24] MEDS: ASCORBIC ACID 500 MG TABLET GT SCH (17:16)
[2022-02-24] MEDS: NEPRO 1,000 ML BOTTLE GT PRN (17:17)
--- NOTE | 2022-02-24 18:38 | NUR ---
INSPECTOR GOLF BALL CLOSING NOTE PATIENT AWAKE IN BED. A/OX1, NON VERBAL. ON [facility] VENT WITH SETTINGS: AC 18, TV 500, FIO2 30%, AND PEEP 5. NO SOB OR S/S OF RESPIRATORY DISTRESS. ON EXTERNAL MOTOR EXPERT . IV ACCESS NOTED HILDA ML, INTACT AND PATENT, NS RUNNING @ 75ML/HR. WITH LEFT WRIST RESTRAINT, RELEASED Q2H AND CIRCULATION CHECKED. WITH GTUBE RUNNING NEPRO AT 40 CC/HR. WITH KNUTSON CATHETER IN PLACE AND DRAINING WELL. WOUND CARE DONE ORDERED. KEPT CLEAN AND DRY. TURNED AND REPOSITIONED Q2H. ALL DUE MEDS GIVEN ORDERED. SAFETY PRECAUTIONS IN PLACE AT ALL TIMES. BED IN LOWEST LOCKED POSITION, SIDE RAILS UP X3, HOB ELEVATED, BED ALARM ON, AND CALL LIGHT AND TABLE WITHIN REACH. ALL NEEDS MET AT THIS TIME AND WILL ENDORSE TO ONCOMING NURSE FOR HAMILTON.
--- NOTE | 2022-02-24 19:10 | NUR ---
RN NOTE PATIENT AWAKE IN BED. A/OX1, NON VERBAL. [facility]: AC 18, TV 500, FIO2 30%, AND PEEP 5. NO SOB OR S/S OF RESPIRATORY DISTRESS. ON EXTERNAL TABLE GAMES FLOOR SUPERVISOR . IV ACCESS NOTED HILDA ML, INTACT AND PATENT, NS RUNNING @ 75ML/HR. WITH LEFT WRIST RESTRAINT, RELEASED Q2H AND CIRCULATION CHECKED. WITH GTUBE RUNNING NEPRO AT 40 CC/HR. WITH KNUTSON CATHETER IN PLACE AND DRAINING WELL. KEEP CLEAN AND DRY. TURNED AND REPOSITIONED Q2H. SAFETY PRECAUTIONS IN PLACE AT ALL TIMES. BED IN LOWEST LOCKED POSITION, SIDE RAILS UP X3, HOB ELEVATED, BED ALARM ON, AND CALL LIGHT AND TABLE WITHIN REACH. ALL NEEDS MET AT THIS TIME AND WILL CONTINUE TO MONITOR.
[2022-02-24 20:00] VITALS: BP 135/78
[2022-02-25] VITALS: BP 130/58
[2022-02-25] MEDS: BLOOD SUGAR DIAGNOSTIC 1 EACH STRIP IN SCH ×5 (00:06→23:52)
[2022-02-25 04:00] VITALS: BP 117/66
[2022-02-25] MEDS: LANTHANUM CARBONATE 500 MG TAB.CHEW GT SCH ×3 (04:59→21:19)
[2022-02-25] MEDS: GABAPENTIN 100 MG CAPSULE PO SCH ×3 (04:59→21:19)
[2022-02-25] MEDS: DILTIAZEM HCL 30 MG TABLET GT SCH ×3 (05:00→21:19)
[2022-02-25 06:34] LABS: BASOPHILS % (AUTO) 0.1 % (0.0-2.0); EOSINOPHILS % (AUTO) 2.1 % (0.0-6.0); HEMATOCRIT 23 % (39-51); HEMOGLOBIN 7.5 g/dL (13.5-17.5); LYMPHOCYTES % (AUTO) 10.7 % (20.0-44.0); MEAN CORPUSCULAR HGB CONC 32 g/dl (31.0-36.0); MEAN CORPUSCULAR VOLUME 93 fL (80-96); MONOCYTES % (AUTO) 7.2 % (2.0-12.0); NEUTROPHILS # (AUTO) 22.3 K/uL (1.8-8.9); NEUTROPHILS % (AUTO) 79.9 % (43.0-81.0); PLATELET COUNT (AUTO) 409 K/uL (150-450); RED BLOOD CELL COUNT(AUTO) 2.49 MIL/uL (4.5-6.0)
--- NOTE | 2022-02-25 06:42 | NUR ---
RN NOTES PATIENT REMAINS STABLE NO SIGNIFICANT CHANGES IN HEALTH CONDITION. ALL DUE MEDS GIVEN ORDERED. STILL WITH R UA MIDLINE PATENT ON CONTINUOS IV NS @ 75CC/HR. ON TRACH CONNECTED TO MV WITH PRESCRIBED SETTING. WITH GT PATENT CONNECTED TO CONTINUOS GT TOLERATING WELL. WITH KNUTSON PATENT. ALL SAFETY MEASURES IN PLACE AT ALL TIMES. HOB ELEVATED. CALL LIGHT WITHIN REACH. WILL ENDORSED TO MORNING SHIFT THE FOR HAMILTON
[2022-02-25 07:19] LABS: ALBUMIN 1.7 g/dL (3.4-5.0); BILIRUBIN,TOTAL 0.4 mg/dL (0.2-1.0); CALCIUM, SERUM 10.3 mg/dL (8.5-10.1); CREATININE 2.7 mg/dL (0.6-1.3); MAGNESIUM 1.8 mg/dL (1.8-2.4); PHOSPHORUS 4.2 mg/dL (2.5-4.9); POTASSIUM 4.6 mmol/L (3.5-5.1); TOTAL PROTEIN, SERUM 7.5 g/dL (6.4-8.2)
--- NOTE | 2022-02-25 07:39 | NUR ---
RN OPENING NOTES RECIEVED REPORT FROM NIGHTSVTFT RN. PATIENT IN BED OBTUNDED AND NON-VERBAL. TOLERATING VENT SETTINGS. ATTACHED TO EXTERNAL MEDICAL SOCIOLOGIST READING SINUS RHTHYM. IV ACCESS ON HILDA MIDLINE PATENT ON CONTINUOS IV NS @ 75CC/HR. ON TRACH CONNECTED TO MV WITH PRESCRIBED SETTING. WITH GT PATENT CONNECTED TO CONTINUOS GT TOLERATING WELL. WITH KNUTSON PATENT. ALL SAFETY MEASURES IN PLACE AT ALL TIMES. HOB ELEVATED. CALL LIGHT WITHIN REACH. WILL CONTINUE PLAN OF CARE AND ANTICIPATE NEEDS.
[2022-02-25 08:00] VITALS: BP 126/60
[2022-02-25] MEDS: VITAMINS A AND D 56.7 GM TUBE TP SCH (09:00)
[2022-02-25] MEDS: THERAHONEY GEL 1.5 OZ TUBE TP SCH (09:00)
[2022-02-25] MEDS: DOXYCYCLINE 100 MG in IV D5W 100 ML IV SCH ×2 (09:00→21:18)
[2022-02-25] MEDS: Z GUARD REMEDY 4 OZ OINT TP SCH (09:00)
[2022-02-25] MEDS: PANTOPRAZOLE 40 MG/PACK PACK GT SCH (10:03)
[2022-02-25] MEDS: ZINC SULFATE 220 MG CAPSULE GT SCH (10:04)
[2022-02-25] MEDS: VORICONAZOLE 200 MG TABLET PO SCH ×2 (10:04→21:19)
[2022-02-25] MEDS: BUMETANIDE (1 MG) 1 MG TABLET GT SCH (10:04)
[2022-02-25 10:13] LABS: BAND % (MANUAL) 6 % (0.0-5.0); LYMPHOCYTES % (MANUAL) 6 % (16-48); METAMYELOCYTES % 3 % (0-0); MONOCYTES % (MANUAL) 2 % (0-11.0); MYELOCYTES % 3 % (0-0); NEUTROPHILS % (MANUAL) 78 (42-76)
[2022-02-25] MEDS: IV NS 0.9% 1,000 ML IV PRN (10:56)
[2022-02-25 12:00] VITALS: BP 138/66
[2022-02-25] MEDS: ACETAMINOPHEN 650 MG/20.3 ML UDC GT PRN (13:18)
[2022-02-25] MEDS: CEFEPIME 1 GM in IV D5W 50 ML IV SCH (14:49)
[2022-02-25 16:00] VITALS: BP 126/60
[2022-02-25] MEDS: ASCORBIC ACID 500 MG TABLET GT SCH (17:29)
[2022-02-25] MEDS: AMIKACIN 400 MG in IV D5W 100 ML IV SCH (18:35)
--- NOTE | 2022-02-25 19:10 | NUR ---
RN NOTE PATIENT AWAKE IN BED. A/OX1, NON VERBAL. [facility] AC 18, TV 500, FIO2 30%, AND PEEP 5. NO SOB OR S/S OF RESPIRATORY DISTRESS. ON EXTERNAL PERIOPERATIVE TECH . IV ACCESS NOTED HILDA ML, INTACT AND PATENT, NS RUNNING @ 75ML/HR. WITH LEFT WRIST RESTRAINT, RELEASED Q2H AND CIRCULATION CHECKED. WITH GTUBE RUNNING NEPRO AT 40 CC/HR. WITH KNUTSON CATHETER IN PLACE AND DRAINING WELL. KEEP CLEAN AND DRY. TURNED AND REPOSITIONED Q2H. SAFETY PRECAUTIONS IN PLACE AT ALL TIMES. BED IN LOWEST LOCKED POSITION, SIDE RAILS UP X3, HOB ELEVATED, BED ALARM ON, AND CALL LIGHT AND TABLE WITHIN REACH. ALL NEEDS MET AT THIS TIME AND WILL CONTINUE TO MONITOR.
--- NOTE | 2022-02-25 19:32 | NUR ---
RN CLOSING NOTES PATIENT IN BED OBTUNDED AND NON-VERBAL. TOLERATING VENT SETTINGS. ATTACHED TO EXTERNAL FISHER OYSTER READING SINUS RHTHYM. IV ACCESS ON HILDA MIDLINE PATENT ON CONTINUOS IV NS @ 75CC/HR. ON TRACH CONNECTED TO MV WITH PRESCRIBED SETTING. WITH GT PATENT CONNECTED TO CONTINUOS GT TOLERATING WELL. WITH KNUTSON PATENT. ALL SAFETY MEASURES IN PLACE AT ALL TIMES. HOB ELEVATED. CALL LIGHT WITHIN REACH. WILL ENDORSE TO NIGHTSHIFT RN FOR HAMILTON.
[2022-02-25 20:00] VITALS: BP 127/61
[2022-02-26] VITALS (9 sets, daily range): BP systolic 91–142; BP diastolic 50–67
[2022-02-26] MEDS: NEPRO 1,000 ML BOTTLE GT PRN (04:25)
[2022-02-26] MEDS: GABAPENTIN 100 MG CAPSULE PO SCH ×3 (05:09→21:07)
[2022-02-26] MEDS: LANTHANUM CARBONATE 500 MG TAB.CHEW GT SCH ×3 (05:10→21:07)
[2022-02-26] MEDS: ACETAMINOPHEN 650 MG/20.3 ML UDC GT PRN ×2 (05:10→20:02)
[2022-02-26] MEDS: DILTIAZEM HCL 30 MG TABLET GT SCH ×3 (05:10→21:08)
[2022-02-26] MEDS: BLOOD SUGAR DIAGNOSTIC 1 EACH STRIP IN SCH ×3 (05:20→17:40)
[2022-02-26] MEDS: IV NS 0.9% 1,000 ML IV PRN (05:51)
[2022-02-26 06:00] LABS: BASOPHILS # (AUTO) 0.1 K/uL (0.0-0.2); BASOPHILS % (AUTO) 0.3 % (0.0-2.0); EOSINOPHILS % (AUTO) 1.7 % (0.0-6.0); HEMATOCRIT 21 % (39-51); LYMPHOCYTES # (AUTO) 2.4 K/uL (0.8-4.8); LYMPHOCYTES % (AUTO) 7.5 % (20.0-44.0); MEAN CORPUSCULAR HGB CONC 33 g/dl (31.0-36.0); MEAN CORPUSCULAR VOLUME 91 fL (80-96); MONOCYTES % (AUTO) 6.3 % (2.0-12.0); NEUTROPHILS # (AUTO) 26.6 K/uL (1.8-8.9); NEUTROPHILS % (AUTO) 84.2 % (43.0-81.0); PLATELET COUNT (AUTO) 371 K/uL (150-450); RED BLOOD CELL COUNT(AUTO) 2.29 MIL/uL (4.5-6.0)
[2022-02-26 06:12] LABS: HEMOGLOBIN 6.9 g/dL (13.5-17.5); WHITE BLOOD COUNT (AUTO) 31.5 K/uL (4.3-11.0)
[2022-02-26 06:29] LABS: ALBUMIN 1.7 g/dL (3.4-5.0); BILIRUBIN,TOTAL 0.3 mg/dL (0.2-1.0); CALCIUM, SERUM 9.7 mg/dL (8.5-10.1); CREATININE 2.8 mg/dL (0.6-1.3); MAGNESIUM 1.7 mg/dL (1.8-2.4); PHOSPHORUS 4.4 mg/dL (2.5-4.9); POTASSIUM 4.7 mmol/L (3.5-5.1); TOTAL PROTEIN, SERUM 7.4 g/dL (6.4-8.2)
[2022-02-26 09:20] LABS: EOSINOPHILS % (MANUAL) 3 % (0-4); LYMPHOCYTES % (MANUAL) 7 % (16-48); MONOCYTES % (MANUAL) 7 % (0-11.0); NEUTROPHILS % (MANUAL) 83 (42-76)
[2022-02-26] MEDS: DOXYCYCLINE 100 MG in IV D5W 100 ML IV SCH ×2 (09:54→21:07)
[2022-02-26] MEDS: VORICONAZOLE 200 MG TABLET PO SCH ×2 (09:55→21:07)
[2022-02-26] MEDS: ZINC SULFATE 220 MG CAPSULE GT SCH (09:55)
[2022-02-26] MEDS: PANTOPRAZOLE 40 MG/PACK PACK GT SCH (09:55)
[2022-02-26] MEDS: BUMETANIDE (1 MG) 1 MG TABLET GT SCH (09:56)
[2022-02-26] MEDS: THERAHONEY GEL 1.5 OZ TUBE TP SCH (10:01)
[2022-02-26] MEDS: VITAMINS A AND D 56.7 GM TUBE TP SCH (10:02)
[2022-02-26] MEDS: Z GUARD REMEDY 4 OZ OINT TP SCH (10:04)
[2022-02-26 11:15] LABS: BASOPHILS # (AUTO) 0.1 K/uL (0.0-0.2); BASOPHILS % (AUTO) 0.2 % (0.0-2.0); LYMPHOCYTES # (AUTO) 2.2 K/uL (0.8-4.8); LYMPHOCYTES % (AUTO) 7.5 % (20.0-44.0); MEAN CORPUSCULAR HGB CONC 33 g/dl (31.0-36.0); MEAN CORPUSCULAR VOLUME 91 fL (80-96); MONOCYTES % (AUTO) 6.8 % (2.0-12.0); NEUTROPHILS # (AUTO) 24.2 K/uL (1.8-8.9); NEUTROPHILS % (AUTO) 83.5 % (43.0-81.0); PLATELET COUNT (AUTO) 370 K/uL (150-450)
[2022-02-26 11:20] LABS: HEMATOCRIT 19 % (39-51); HEMOGLOBIN 6.2 g/dL (13.5-17.5)
--- NOTE | 2022-02-26 11:40 | NUR ---
DR. GONZALES MADE AWARE REGARDING ABNORMAL LABS AND ALSO Hgb=6.2 and Magnesium= 1.7.
--- NOTE | 2022-02-26 12:30 | NUR ---
CHARGE NURSE -SOON AWARE THAT DR. GONZALES HAS NO RESPONSE YET RELATED TO THE REPORTED ABNORMAL LABS AT 11:40AM. CHARGE NURSE STATES "THAT'S OKAY AND NO NEED TO MAKE FOLLOW UP NOW."
[2022-02-26] MEDS ORDERED: OLANZAPINE 10 MG VIAL IM ONE (12:50)
[2022-02-26] MEDS: CEFEPIME 1 GM in IV D5W 50 ML IV SCH (15:20)
--- NOTE | 2022-02-26 16:23 | NUR ---
ARASH MADE AWARE OF THE ABNORMAL LABS.
--- NOTE | 2022-02-26 16:25 | NUR ---
RADHA WISEMAN AT THE UNIT WITH NEW ORDER MADE.
[2022-02-26] MEDS ORDERED: Magnesium 1GM/D5W 100ML PREMIX PIGGYBACK IV ONE (17:00)
[2022-02-26] MEDS: ASCORBIC ACID 500 MG TABLET GT SCH (17:24)
[2022-02-26] MEDS: PANTOPRAZOLE 40 MG VIAL IV SCH ×2 (17:26→21:07)
[2022-02-26] MEDS: AMIKACIN 400 MG in IV D5W 100 ML IV SCH (18:01)
--- NOTE | 2022-02-26 19:10 | NUR ---
RN NOTE PATIENT AWAKE IN BED. A/OX1, NON VERBAL. [facility] WITH SETTINGS: AC 18, TV 500, FIO2 30%, AND PEEP 5. NO SOB OR S/S OF RESPIRATORY DISTRESS. ON EXTERNAL ROLLWAY WORKER . IV ACCESS NOTED HILDA ML, INTACT AND PATENT, NS RUNNING @ 75ML/HR. WITH LEFT WRIST RESTRAINT, RELEASED Q2H AND CIRCULATION CHECKED. WITH GTUBE RUNNING NEPRO AT 40 CC/HR. WITH KNUTSON CATHETER IN PLACE AND DRAINING WELL. KEEP CLEAN AND DRY. TURNED AND REPOSITIONED Q2H. SAFETY PRECAUTIONS IN PLACE AT ALL TIMES. BED IN LOWEST LOCKED POSITION, SIDE RAILS UP X3, HOB ELEVATED, BED ALARM ON, AND CALL LIGHT AND TABLE WITHIN REACH. ALL NEEDS MET AT THIS TIME AND WILL CONTINUE TO MONITOR.
--- NOTE | 2022-02-26 19:30 | NUR ---
RN NOTES PATIENT IS FOR BLOOD TRANSFUSION I UNIT. VITAL SIGNS TAKEN FOLLOWS. BP 105/58 HR 112, RR 28 TEMP 101.2. COOLING MEASURES RENDERED. TEMP WENT DOWN TO 100.8. DR RUSH INFORMED WILL HOLD BLOOD TRANSFUSION FOR NOW UNTIL PATIENT AFEBRILE. PRN ACETAMINOPHEN GIVEN WELL. WILL CONTINUE TO MONITOR THE PATIENT
--- NOTE | 2022-02-26 20:30 | NUR ---
RN NOTES PATIENT TEMPERATURE STILL ON 99.8 WILL CONTINUE COOLING MEASURES.
--- NOTE | 2022-02-26 21:40 | NUR ---
RN NOTES TEMP 98.7. DR RUSH INFORMED MAY CONTINUE TO TRANSFUSE BLOOD. WILL CONTINUE TO MONITOR THE PATIENT
--- NOTE | 2022-02-26 22:20 | NUR ---
RN NOTES STARTED BLOOD TRANSFUSION OF 1 UNIT PRBC TYPE A POSITIVE.TYPE AND SCREENED DONE BY CLS. VITAL SIGNS TAKEN AND RECORDED PRIOR TO BLOOD TRANSFUSION. PATIENT REMAINS STABLE. WILL CLOSELY MONITOR FOR ANY TRANSFUSION REACTION.
[2022-02-27] VITALS (8 sets, daily range): BP systolic 106–135; BP diastolic 55–78
[2022-02-27] MEDS: BLOOD SUGAR DIAGNOSTIC 1 EACH STRIP IN SCH ×4 (00:33→17:40)
[2022-02-27] MEDS: IV NS 0.9% 1,000 ML IV SCH ×3 (01:29→16:39)
--- NOTE | 2022-02-27 01:30 | NUR ---
RN NOTES TRANSFUSION COMPLETED. NO BLOOD TRANSFUSION REACTION NOTED AT THIS TIME. VITAL SIGNS TAKEN AND RECORDED. WILL CONTINUE TO MONITOR THE PATIENT
--- NOTE | 2022-02-27 05:18 | NUR ---
RT NOTE PT RECEIVED TRACH'D AND ON [facility] VENT. ALARMS ARE SET AND AUDIBLE. PT SX'D W NO ADVERSE REACTIONS. NO RESP DISTRESS NOTED T/O SHIFT. Addendum: 02/27/22 at 0519 by FUENTES SALAMANCA RT Amended: Links added.
[2022-02-27] MEDS: LANTHANUM CARBONATE 500 MG TAB.CHEW GT SCH ×3 (05:24→21:05)
[2022-02-27] MEDS: DILTIAZEM HCL 30 MG TABLET GT SCH ×3 (05:24→21:06)
[2022-02-27] MEDS: GABAPENTIN 100 MG CAPSULE PO SCH ×3 (05:24→21:05)
[2022-02-27 06:18] LABS: OCCULT BLOOD STOOL NEGATIVE (NEGATIVE)
[2022-02-27 07:09] LABS: CALCIUM, SERUM 9.9 mg/dL (8.5-10.1); CREATININE 2.9 mg/dL (0.6-1.3); POTASSIUM 5.8 mmol/L (3.5-5.1)
--- NOTE | 2022-02-27 07:58 | NUR ---
RN open note PATIENT AWAKE IN BED. A/OX1, NON VERBAL. ON [facility] VENT WITH SETTINGS: AC 18, TV 500, FIO2 30%, AND PEEP 5. NO DISTRESS NOTED ON EXTERNAL APPLICATION SUPPORT CONSULTANT . IV ACCESS NOTED HILDA ML, INTACT AND PATENT, NS RUNNING @ 75ML/HR. WITH LEFT WRIST SOFT RESTRAINT, RELEASED Q2H AND CIRCULATION CHECKED. WITH GTUBE RUNNING NEPRO AT 40 CC/HR. KNUTSON CATHETER IN PLACE AND DRAINING CLEAR YELLOW URINE WILL KEEP PATIENT CLEAN AND DRY. TURNED AND REPOSITIONED Q2H. SAFETY PRECAUTIONS IN PLACE AT ALL TIMES. BED IN LOWEST LOCKED POSITION, SIDE RAILS UP X3, HOB ELEVATED, BED ALARM ON, AND CALL LIGHT AND TABLE WITHIN REACH. ALL NEEDS MET AT THIS TIME AND WILL CONTINUE TO MONITOR.
[2022-02-27] MEDS: BUMETANIDE (1 MG) 1 MG TABLET GT SCH (08:46)
[2022-02-27] MEDS: PANTOPRAZOLE 40 MG VIAL IV SCH ×2 (08:46→21:06)
[2022-02-27] MEDS: DOXYCYCLINE 100 MG in IV D5W 100 ML IV SCH ×2 (08:46→20:53)
[2022-02-27] MEDS: ZINC SULFATE 220 MG CAPSULE GT SCH (08:46)
[2022-02-27] MEDS: VORICONAZOLE 200 MG TABLET PO SCH ×2 (08:46→21:06)
[2022-02-27] MEDS: THERAHONEY GEL 1.5 OZ TUBE TP SCH (08:51)
[2022-02-27] MEDS: Z GUARD REMEDY 4 OZ OINT TP SCH (08:51)
[2022-02-27] MEDS: VITAMINS A AND D 56.7 GM TUBE TP SCH (08:52)
[2022-02-27 09:57] LABS: CALCIUM, SERUM 9.3 mg/dL (8.5-10.1); CREATININE 2.9 mg/dL (0.6-1.3); POTASSIUM 4.3 mmol/L (3.5-5.1)
[2022-02-27 10:38] LABS: BASOPHILS # (AUTO) 0.1 K/uL (0.0-0.2); BASOPHILS % (AUTO) 0.3 % (0.0-2.0); EOSINOPHILS % (AUTO) 1.7 % (0.0-6.0); HEMATOCRIT 27 % (39-51); LYMPHOCYTES # (AUTO) 1.5 K/uL (0.8-4.8); LYMPHOCYTES % (AUTO) 5.8 % (20.0-44.0); MEAN CORPUSCULAR HGB CONC 33 g/dl (31.0-36.0); MEAN CORPUSCULAR VOLUME 90 fL (80-96); MONOCYTES # (AUTO) 1.9 K/uL (0.1-1.30); MONOCYTES % (AUTO) 7.2 % (2.0-12.0); NEUTROPHILS # (AUTO) 22.5 K/uL (1.8-8.9); PLATELET COUNT (AUTO) 345 K/uL (150-450); RED BLOOD CELL COUNT(AUTO) 3.01 MIL/uL (4.5-6.0); WHITE BLOOD COUNT (AUTO) 26.5 K/uL (4.3-11.0)
[2022-02-27 11:27] LABS: BASOPHILS % (MANUAL) 0 % (0.0-2.0); EOSINOPHILS % (MANUAL) 1 % (0-4); LYMPHOCYTES % (MANUAL) 5 % (16-48); MONOCYTES % (MANUAL) 7 % (0-11.0); NEUTROPHILS % (MANUAL) 87 (42-76)
[2022-02-27] MEDS: SODIUM POLYSTYRENE SULF. PWD 15 GM UDC PO SCH (11:31)
[2022-02-27] MEDS: CEFEPIME 1 GM in IV D5W 50 ML IV SCH (14:05)
[2022-02-27] MEDS: ACETAMINOPHEN 650 MG/20.3 ML UDC GT PRN (16:48)
[2022-02-27] MEDS: ASCORBIC ACID 500 MG TABLET GT SCH (17:23)
--- NOTE | 2022-02-27 18:38 | NUR ---
RN CLOSING NOTE PATIENT IN BED OBTUNDED AND NON-VERBAL. TOLERATING VENT SETTINGS. ATTACHED TO EXTERNAL SCALLOP CUTTER READING SINUS TACHYCARDIAC 130-140. IV ACCESS ON HILDA MIDLINE PATENT ON CONTINUOS IV NS @ 75 ML/HR. GT IS IN PLACE WITH NEPHRO AT 40 CC/HR TOLERATING WELL. KNUTSON CATH DRAINING YELLOW CLEAR URINE , WOUND CARE OF THE LOW BACK WAS DONE PER ORDER , ALL SAFETY MEASURES ARE IN PLACE AT . HOB ELEVATED. CALL LIGHT WITHIN REACH. WILL ENDORSE TO NIGHTSHIFT RN FOR HAMILTON.
--- NOTE | 2022-02-27 19:45 | NUR ---
1944 Patient noted with tachycardic HR 150s and tachypneic RR 40s on the ventilator. Skin hot and diaphoretic. Noted to have a fever of 100.9 axillary. Patient not in distress. Complete bed bath with cold water rendered. Will cont. to monitor.
--- NOTE | 2022-02-27 20:15 | NUR ---
2015 Temp. 99.3 when re checked. Patient remains on cooling measures. HR improved to 130s. Kept patient clean and dry.
--- NOTE | 2022-02-27 22:00 | NUR ---
2200 Patient resting comfortably. No signs of distress noted. HR 111 on the monitor. Kept clean and dry.
[2022-02-28] VITALS: BP 123/69
[2022-02-28] MEDS: BLOOD SUGAR DIAGNOSTIC 1 EACH STRIP IN SCH ×5 (00:26→23:22)
--- NOTE | 2022-02-28 00:28 | NUR ---
RN NOTES: BLOOD SUGAR 89. NO COVERAGE NEEDED. NO S/S OF HYPER/HYPOGLYCEMIA. WILL CONTINUE TO MONITOR
[2022-02-28 04:00] VITALS: BP 133/70
[2022-02-28] MEDS: LANTHANUM CARBONATE 500 MG TAB.CHEW GT SCH ×3 (05:17→21:01)
[2022-02-28] MEDS: GABAPENTIN 100 MG CAPSULE PO SCH ×3 (05:17→21:01)
[2022-02-28] MEDS: DILTIAZEM HCL 30 MG TABLET GT SCH ×3 (05:18→21:01)
[2022-02-28] MEDS: IV NS 0.9% 1,000 ML IV SCH ×2 (06:08→17:19)
--- NOTE | 2022-02-28 06:45 | NUR ---
RN CLOSING NOTES: PATIENT IN BED, A/O X0 AND NON-VERBAL. ON TRACH TO VENT SETTINGS AND PT TOLERATED WELL. O2 SAT 100%. IV ACCESS ON HILDA MIDLINE PATENT AND INTACT, RUNNING IV NS @ 90 ML/HR. GTUBE FEEDING WELL TOLERATED. ON NEPHRO AT 40 CC/HR. KNUTSON CATH DRAINING YELLOW CLEAR URINE. ALL DUE MEDS GIVEN ORDERED. WOUND CARE DONE. ALL SAFETY MEASURES IN PLACE. SIDE RAILS UP X3, BED IN LOWEST POSITION AND LOCKED. PLACE CALL LIGHT WITHIN REACH. WILL ENDORSE TO MORNING NURSE.
[2022-02-28 06:50] LABS: BASOPHILS # (AUTO) 0.1 K/uL (0.0-0.2); BASOPHILS % (AUTO) 0.6 % (0.0-2.0); HEMATOCRIT 23 % (39-51); HEMOGLOBIN 7.8 g/dL (13.5-17.5); LYMPHOCYTES % (AUTO) 8.5 % (20.0-44.0); MEAN CORPUSCULAR HGB CONC 34 g/dl (31.0-36.0); MEAN CORPUSCULAR VOLUME 90 fL (80-96); MONOCYTES # (AUTO) 2.1 K/uL (0.1-1.30); MONOCYTES % (AUTO) 8.8 % (2.0-12.0); NEUTROPHILS # (AUTO) 19.1 K/uL (1.8-8.9); NEUTROPHILS % (AUTO) 79.1 % (43.0-81.0); PLATELET COUNT (AUTO) 386 K/uL (150-450); WHITE BLOOD COUNT (AUTO) 24.1 K/uL (4.3-11.0)
[2022-02-28 07:21] LABS: ALBUMIN 1.7 g/dL (3.4-5.0); BILIRUBIN,TOTAL 0.4 mg/dL (0.2-1.0); CALCIUM, SERUM 9.4 mg/dL (8.5-10.1); MAGNESIUM 1.9 mg/dL (1.8-2.4); PHOSPHORUS 4.7 mg/dL (2.5-4.9); POTASSIUM 3.7 mmol/L (3.5-5.1); TOTAL PROTEIN, SERUM 7.6 g/dL (6.4-8.2)
[2022-02-28 08:00] VITALS: BP 113/61
--- NOTE | 2022-02-28 08:00 | NUR ---
RN NOTES PATIENT SEEN TACHE/VENT DEPENDENT, ON PORTEX 7, FIO2-30, PEEP IS 5, HR - 116 AT HIS TIME. NO RESIDUAL, PLACEMENT ALSO CHECKED. PATIENT TOLERATING FEEDING WELL NEPRO @40ML/HR, KNUTSON DRAINING YELLOW OUTPUT, DRESSING CHANGED, PATIENT CONTRACTED. DUE MEDICATION ADMINISTERED. ASSIST TURN AND REPOSTION Q 2 HR. IV ACCESS HILDA MIDLINE INFUSING NS @75 ML/HR INTACT. KEEP HOB ELEVATED FOR ASPIRATION PRECAUTION. WILL FOLLOW UP.
[2022-02-28] MEDS: SODIUM POLYSTYRENE SULF. PWD 15 GM UDC PO SCH ×2 (09:00→11:40)
[2022-02-28] MEDS: ZINC SULFATE 220 MG CAPSULE GT SCH (11:11)
[2022-02-28] MEDS: PANTOPRAZOLE 40 MG VIAL IV SCH ×2 (11:11→21:01)
[2022-02-28] MEDS: BUMETANIDE (1 MG) 1 MG TABLET GT SCH (11:11)
[2022-02-28] MEDS: VITAMINS A AND D 56.7 GM TUBE TP SCH (11:12)
[2022-02-28] MEDS: Z GUARD REMEDY 4 OZ OINT TP SCH (11:13)
[2022-02-28] MEDS: THERAHONEY GEL 1.5 OZ TUBE TP SCH (11:13)
[2022-02-28] MEDS: DOXYCYCLINE 100 MG in IV D5W 100 ML IV SCH ×2 (11:18→21:01)
[2022-02-28] MEDS: VORICONAZOLE 200 MG TABLET PO SCH ×2 (11:18→21:01)
[2022-02-28 12:00] VITALS: BP 118/63
--- NOTE | 2022-02-28 14:27 | NUR ---
UNABLE TO DO MRI PATIENT ON VENT
[2022-02-28] MEDS: ACETAMINOPHEN 650 MG/20.3 ML UDC GT PRN (14:53)
--- NOTE | 2022-02-28 14:54 | NUR ---
RN NOTES T-100F ADMINISTERED TYLENOL 650 MG/ML VIA GT AT THIS TIME.
[2022-02-28] MEDS: CEFEPIME 1 GM in IV D5W 50 ML IV SCH (15:12)
[2022-02-28] MEDS: NEPRO 1,000 ML BOTTLE GT PRN (15:49)
[2022-02-28 16:00] VITALS: BP 112/75
[2022-02-28] MEDS ORDERED: AMIKACIN 400 MG in IV D5W 100 ML IV SCH (17:00)
[2022-02-28] MEDS: ASCORBIC ACID 500 MG TABLET GT SCH (17:19)
--- NOTE | 2022-02-28 18:30 | NUR ---
RN NOTES STILL PENDING AMIKIN TROUGH AT THIS TIME, PER LABORATORY RESULT WILL BE AFTER FOUR HR, PHARMACY AWARE OF.PATIENT TOLERATING FEEDING WELL, BS-90MG/DL, DUE MEDICATION ADMINISTERED. ASSIST TURN AND REPOSTION Q 2 HR, INFUSING NS @ 90ML/HR ON LEFT HILDA MIDLINE INTACT. RECHECKED T-99.5F. KNUTSON OUTPUT WAS 600ML. ENDORSED ONCOMING NURSE HAMILTON.
[2022-02-28 20:00] VITALS: BP 110/56
--- NOTE | 2022-02-28 20:09 | NUR ---
RT NOTE PT RECEIVED TRACHED ON MECHANICAL VENTILATION. SHILEY [address] AMBU BAG/BACK UP TRACH @ BEDSIDE. HHN TX GIVEN, NO ADVERSE REACTIONS NOTED. SX DONE, TRACH SECURED AND PATENT. ALARMS ON AND AUDIBLE. NO RESPIRATORY DISTRESS NOTED. WILL MONITOR T/O SHIFT. Addendum: 02/28/22 at 2011 by VÍCTOR LEROY RT Amended: Links added. Addendum: 02/28/22 at 2012 by VÍCTOR LEROY RT NO HHN TX GIVEN. ERROR
--- NOTE | 2022-02-28 22:35 | NUR ---
RN NOTE AMIKACIN NON ADMINISTER D/T LEVEL CAME BACK 15.1 HIGH.
[2022-02-28] MEDS: INSULIN REGULAR, HUMAN 100 UNIT/ML 3 ML VIAL SQ PRN (23:22)
[2022-03-01] VITALS: BP_SYST 137; BP_SYST 154; BP_DIAS 79; BP_DIAS 95
[2022-03-01 04:00] VITALS: BP 141/90
[2022-03-01] MEDS: LANTHANUM CARBONATE 500 MG TAB.CHEW GT SCH ×3 (05:16→20:27)
[2022-03-01] MEDS: GABAPENTIN 100 MG CAPSULE PO SCH ×3 (05:16→20:27)
[2022-03-01] MEDS: DILTIAZEM HCL 30 MG TABLET GT SCH ×3 (05:16→20:31)
[2022-03-01] MEDS: IV NS 0.9% 1,000 ML IV SCH ×2 (05:16→15:32)
[2022-03-01] MEDS: BLOOD SUGAR DIAGNOSTIC 1 EACH STRIP IN SCH ×4 (05:41→23:30)
[2022-03-01] MEDS: INSULIN REGULAR, HUMAN 100 UNIT/ML 3 ML VIAL SQ PRN (05:47)
--- NOTE | 2022-03-01 06:29 | NUR ---
RN CLOSING NOTE PATIENT RESTING IN BED. NONVERBAL. ON MECHANICAL VENT. NO RESPIRATORY DISTRESS NOTED. PATIENT DOES HAVE BLOODY SECRETIONS. SINUS TACHYCARDIA HR 120S ON THE MONITOR. KNUTSON CATHETER DRAINING TO GRAVITY. LEFT HAND RESTRAINT IN PLACE. NO REDNESS NOTED. GTUBE RUNNNG JACQUELINE@40, NO RESIDUAL. BLOOD SUGARS MONITORED. PENDING CT ABD/PELVIS.
[2022-03-01 06:52] LABS: BASOPHILS # (AUTO) 0.1 K/uL (0.0-0.2); BASOPHILS % (AUTO) 0.6 % (0.0-2.0); EOSINOPHILS % (AUTO) 2.6 % (0.0-6.0); HEMATOCRIT 22 % (39-51); HEMOGLOBIN 7.4 g/dL (13.5-17.5); LYMPHOCYTES # (AUTO) 1.4 K/uL (0.8-4.8); LYMPHOCYTES % (AUTO) 7.2 % (20.0-44.0); MEAN CORPUSCULAR HGB CONC 33 g/dl (31.0-36.0); MEAN CORPUSCULAR VOLUME 91 fL (80-96); MONOCYTES # (AUTO) 2.2 K/uL (0.1-1.30); MONOCYTES % (AUTO) 11.4 % (2.0-12.0); NEUTROPHILS # (AUTO) 15.1 K/uL (1.8-8.9); NEUTROPHILS % (AUTO) 78.2 % (43.0-81.0); PLATELET COUNT (AUTO) 353 K/uL (150-450); RED BLOOD CELL COUNT(AUTO) 2.45 MIL/uL (4.5-6.0); WHITE BLOOD COUNT (AUTO) 19.4 K/uL (4.3-11.0)
[2022-03-01 07:31] LABS: ALBUMIN 1.6 g/dL (3.4-5.0); BILIRUBIN,TOTAL 1.4 mg/dL (0.2-1.0); CALCIUM, SERUM 9.2 mg/dL (8.5-10.1); CREATININE 2.9 mg/dL (0.6-1.3); MAGNESIUM 1.7 mg/dL (1.8-2.4); PHOSPHORUS 4.2 mg/dL (2.5-4.9); POTASSIUM 3.6 mmol/L (3.5-5.1); TOTAL PROTEIN, SERUM 7.2 g/dL (6.4-8.2)
--- NOTE | 2022-03-01 07:32 | NUR ---
TELE RNNOTE PATIENT IN BED. NONVERBAL. ON MECHANICAL VENT. WITH SLIGHT LABORED RESPIRATION NOTED AT THIS TIME PATIENT DOES HAVE BLOODY SECRETIONS. SINUS TACHYCARDIA HR 128 ON THE MONITOR. KNUTSON CATHETER DRAINING TO GRAVITY. LEFT HAND RESTRAINT IN PLACE. NO REDNESS NOTED. GTUBE RUNNNG JACQUELINE@40, NO RESIDUAL. ON IVF ORDERED VIA RT UPPER ARM MID LINE, BED IN LOWEST AND LOCKED POSITION, WILL CONT TO MONITOR
[2022-03-01 08:00] VITALS: BP 137/74
[2022-03-01] MEDS: VORICONAZOLE 200 MG TABLET PO SCH ×2 (08:05→20:27)
[2022-03-01] MEDS: BUMETANIDE (1 MG) 1 MG TABLET GT SCH (08:05)
[2022-03-01] MEDS: ZINC SULFATE 220 MG CAPSULE GT SCH (08:05)
[2022-03-01] MEDS: PANTOPRAZOLE 40 MG VIAL IV SCH ×2 (08:05→20:27)
[2022-03-01] MEDS: Z GUARD REMEDY 4 OZ OINT TP SCH (08:08)
[2022-03-01] MEDS: VITAMINS A AND D 56.7 GM TUBE TP SCH (08:09)
[2022-03-01] MEDS: THERAHONEY GEL 1.5 OZ TUBE TP SCH (08:09)
[2022-03-01] MEDS: DOXYCYCLINE 100 MG in IV D5W 100 ML IV SCH (08:19)
--- NOTE | 2022-03-01 08:28 | NUR ---
EDUCATIONAL PSYCHOLOGY TEACHER NOTE K 3.[address] CAROLINE COYLE TO HOLD KAYEXALATE
--- NOTE | 2022-03-01 09:22 | NUR ---
DENITRATOR NOTE SPOKE WITH DR OTERO MINE WEDGE SAWYER NOTIFIED THAT STILL BLOOD SECRETION WHEN SUCTION TRACH ASLO HG 7.4 AND HAS SLIGHT LABORED RESPIRATION STATED THAT WILL CHECK IT WILL F\U
[2022-03-01 12:00] VITALS: BP 131/75
--- NOTE | 2022-03-01 12:00 | NUR ---
BEAMER HAND NOTE TAKEN TO CT ABDOMEN WITH RT
[2022-03-01] MEDS: ACETAMINOPHEN 650 MG/20.3 ML UDC GT PRN (12:31)
[2022-03-01] MEDS: MEROPENEM 500 MG in IV NS 0.9% 50 ML IV SCH ×2 (12:37→23:30)
--- NOTE | 2022-03-01 12:51 | NUR ---
GLASS DECORATOR NOTE DR GONZALES AT BEDSIDE NOTIFIED THAN AFTER TAKING TO CT SCAN HR ST 138-140 TYLENOL VIA G TUBE GIVE FOR PAIN ,COOLING MEASURE PROVIDED , DR GONZALES STATED ITS PHYSIOLOGICAL ,NO NEW ORDER GIVEN AT THIS TIME
--- NOTE | 2022-03-01 13:31 | NUR ---
RECEPTIONIST DOCTOR'S OFFICE NOTE CALLED TO DR OTERO NOTIFIED THAT HR ST 139-140 BECOME TACHYPNEIC RR 47 AT THIS TIME, ORDERED STAT ABG A ND CHEST X RAY
[2022-03-01 13:43] LABS: ABG BASE EXCESS -10.8 mmol/L; ABG OXYGEN SATURATION 95.8 % (92.0-98.5); ABG PCO2 24.5 mmHg (35.0-45.0); ABG PH 7.355 (7.350-7.450); ABG PO2 87.9 mmHg (75.0-100.0); AaDO2 97.2 mmHg; COHb 0.1 % (0.5-1.5); MetHb 0.6 % (0.0-1.5); O2Hb 95.1 % (94.0-97.0); SITE, ABG Right Radial; VENT MODE, BG ac 18 500 30% +5
[2022-03-01] MEDS: NEPRO 1,000 ML BOTTLE GT PRN (14:58)
[2022-03-01] MEDS ORDERED: LORAZEPAM 1 MG TABLET PO PRN (15:00)
--- NOTE | 2022-03-01 15:00 | NUR ---
television equipment operator note dr franz at bedside aware of abg result stated no changes but ok to give Ativan 1 mg ivp q6 hour order carried out
--- NOTE | 2022-03-01 15:13 | NUR ---
television presenter note nathaly marketing assistant rn application architect aware that patent has some bloody secretion from suction and aware that earlier hr [id number]
[2022-03-01] MEDS: LORAZEPAM INJ 2 MG/ML VIAL IV PRN ×2 (15:19→22:41)
--- NOTE | 2022-03-01 15:35 | NUR ---
telecommunications network planner note dr franz aware of chest x ray result, no nr new order given at this time, will monitor
[2022-03-01 16:00] VITALS: BP 130/61
[2022-03-01 17:08] LABS: IRON, SERUM 37 ug/dl (50-175); TOTAL IRON BINDING CAPACITY 123 ug/dl (250-450)
[2022-03-01 17:09] LABS: D-DIMER 4.93 mg/L(FEU (0.17-0.50)
[2022-03-01] MEDS: ASCORBIC ACID 500 MG TABLET GT SCH (17:28)
[2022-03-01 17:49] LABS: FERRITIN 4381 ng/mL (8-388)
--- NOTE | 2022-03-01 18:37 | NUR ---
RADIO ELECTRICIAN NOTE PATIENT IN BED AWAKE WITH TRACH TO VENT SETTING ORDERED WITH G TUBE FEEDING ORDERED KEEP HOB ELEVATED AT ALL TIME, NO RESIDUAL ,LT UPPER ARM MID SHARAN LINE IN PLACE AND FLASHED WELL NOTED AT THIS TIME,ON TELE MONITOR ST 122 AT THIS TIME AND STILL WITH SOME LABORED RESPIRATION DR GONZALES AWARE OF IT ,WITH KNUTSON CATH TO GRAVITY WITH YELLOW COLOR URINE, UNABLE TO REMOVE MITTENS LT HAND STILL TRYING TO REMOVE ALL LINES, TURN REPOSITION CALL LIGHT WITHIN REACH, WILL CONT TO MONITOR CLOSELY
--- NOTE | 2022-03-01 19:54 | NUR ---
CARGOMAN OPENING NOTES RECEIVED PATIENT IN BED, A/O X 0 AND NON-VERBAL. ON TRACH TO VENT SETTINGS AND PT TOLERATED WELL. O2 SAT 100%. IV ACCESS ON HILDA MIDLINE PATENT AND INTACT, RUNNING IV NS @ 90 ML/HR. ON GTUBE FEEDING RUNNING NEPHRO AT 40 CC/HR, TOLERATING WELL. ON TELEMONITORING CURRENTLY READING ST AT 110-120. ON KNUTSON CATH DRAINING TO GRAVITY WITH YELLOWISH COLORED URINE. ALL SAFETY MEASURES IN PLACE. SIDE RAILS UP X3, BED IN LOWEST POSITION AND LOCKED. PLACE CALL LIGHT WITHIN REACH. WILL CONTINUE TO MONITOR THROUGHOUT THE SHIFT.
[2022-03-01 20:00] VITALS: BP 143/79
[2022-03-01] MEDS ORDERED: AMIKACIN 250 MG in IV D5W 100 ML IV SCH (21:00)
--- NOTE | 2022-03-01 23:47 | NUR ---
RN NOTE NOTED PATIENT HR TACHYCARDIC AT 130S, ATIVAN GIVEN ORDERED. RT AT BEDSIDE TRYING TO SUCTION PATIENT, HE THEN STARTED TO VOMIT FROM THE MOUTH. NO PRN ORDER FOR N&V INFORMED FIXED INTEREST DEALER MONY CHERRY. ORDERED ZOFRAN 4MG Q4H PRN. WILL CARRY OUT ORDER AND MONITOR ANY CHANGES THROUGHOUT THE SHIFT.
[2022-03-02] VITALS (9 sets, daily range): BP systolic 106–154; BP diastolic 56–79
[2022-03-02] MEDS ORDERED: ONDANSETRON HCL 4 MG/5 ML SOLUTION PO PRN (03:00)
[2022-03-02] MEDS ORDERED: ONDANSETRON HCL/PF 4 MG/2 ML VIAL IV PRN (03:00)
[2022-03-02] MEDS: IV NS 0.9% 1,000 ML IV SCH ×2 (03:51→14:06)
[2022-03-02] MEDS: LANTHANUM CARBONATE 500 MG TAB.CHEW GT SCH ×3 (04:07→21:07)
[2022-03-02] MEDS: GABAPENTIN 100 MG CAPSULE PO SCH ×3 (04:07→21:07)
[2022-03-02] MEDS: DILTIAZEM HCL 30 MG TABLET GT SCH ×3 (04:12→21:08)
[2022-03-02] MEDS: ACETAMINOPHEN 650 MG/20.3 ML UDC GT PRN ×2 (04:55→21:07)
--- NOTE | 2022-03-02 04:55 | NUR ---
RN NOTE NOTED PATIENT WITH HIGH TEMPERATURE AT 101.0. COOLING MEASURES PROVIDED, PRN TYLENOL GIVEN FOR FEVER. WILL CONT TO MONITOR.
--- NOTE | 2022-03-02 05:22 | NUR ---
RN NOTE BS CHECKED AT 68 MG/DL, GT FEEDING RUNNING AT 40 ML/HR. WILL CONT TO MONITOR.
[2022-03-02] MEDS: BLOOD SUGAR DIAGNOSTIC 1 EACH STRIP IN SCH ×3 (05:23→17:21)
--- NOTE | 2022-03-02 05:53 | NUR ---
RN NOTE RECHECKED TEMPERATURE NOW AT 99.7
--- NOTE | 2022-03-02 06:56 | NUR ---
STREET CAR INSPECTOR CLOSING NOTES PATIENT IN BED, A/O X 0 AND NON-VERBAL. ON TRACH TO VENT SETTINGS, TOLERATED WELL. O2 SAT 100%. IV ACCESS ON HILDA MIDLINE PATENT AND INTACT, RUNNING IV NS @ 90 ML/HR. ON GTUBE FEEDING RUNNING NEPHRO AT 40 CC/HR, TOLERATING WELL. ON TELEMONITORING CURRENTLY READING ST AT 130's. ON KNUTSON CATH DRAINING TO GRAVITY WITH YELLOWISH COLORED URINE. ALL SAFETY MEASURES IN PLACE. SIDE RAILS UP X3, BED IN LOWEST POSITION AND LOCKED. CALL LIGHT WITHIN REACH. WILL ENDORSE TO AM SHIFT NURSE.
[2022-03-02 07:06] LABS: IMMUNOGLOBULIN A, SERUM 369 mg/dL (61-437); IMMUNOGLOBULIN G, SERUM 2034 mg/dL (603-1613); IMMUNOGLOBULIN M, SERUM 52 mg/dL (20-172)
--- NOTE | 2022-03-02 07:24 | NUR ---
TELE/RN PATIENT RECEIVED IN BED, OBTUNDED, EYES OPEN. PATIENT ON MECHANICAL VENTILATOR WITH TRACH TUBE FIO2 30% SAT 99% ON BEDSIDE MONITOR. KNUTSON CATH IN PLACE, PATENT AND DRAINING CLOUD TORRES COLOR URINE. LEFT SOFT WRIST AND MITTEN RESTRAIN ON, SKIN WARM AND INTACT. GTUBE IN PLACE RUNNING NEPHRO AT 40CC/HR. BED LOCKED AND IN LOWEST POSITION, CALL LIGHT WITHIN REACH, 3 SIDE RAILS UP.
[2022-03-02 07:34] LABS: BILIRUBIN,TOTAL 3.3 mg/dL (0.2-1.0); CALCIUM, SERUM 8.5 mg/dL (8.5-10.1); CREATININE 2.9 mg/dL (0.6-1.3); MAGNESIUM 1.6 mg/dL (1.8-2.4); PHOSPHORUS 3.6 mg/dL (2.5-4.9); POTASSIUM 3.4 mmol/L (3.5-5.1); TOTAL PROTEIN, SERUM 6.7 g/dL (6.4-8.2)
[2022-03-02 07:48] LABS: ALBUMIN 1.4 g/dL (3.4-5.0)
[2022-03-02 08:23] LABS: BASOPHILS # (AUTO) 0.1 K/uL (0.0-0.2); BASOPHILS % (AUTO) 0.5 % (0.0-2.0); EOSINOPHILS % (AUTO) 2.1 % (0.0-6.0); HEMATOCRIT 21 % (39-51); LYMPHOCYTES # (AUTO) 1.4 K/uL (0.8-4.8); LYMPHOCYTES % (AUTO) 8.3 % (20.0-44.0); MEAN CORPUSCULAR HGB CONC 33 g/dl (31.0-36.0); MEAN CORPUSCULAR VOLUME 93 fL (80-96); MONOCYTES % (AUTO) 11.8 % (2.0-12.0); NEUTROPHILS # (AUTO) 13.3 K/uL (1.8-8.9); NEUTROPHILS % (AUTO) 77.3 % (43.0-81.0); PLATELET COUNT (AUTO) 323 K/uL (150-450); RED BLOOD CELL COUNT(AUTO) 2.23 MIL/uL (4.5-6.0); WHITE BLOOD COUNT (AUTO) 17.2 K/uL (4.3-11.0)
[2022-03-02] MEDS: BUMETANIDE (1 MG) 1 MG TABLET GT SCH (08:23)
[2022-03-02] MEDS: VORICONAZOLE 200 MG TABLET PO SCH ×2 (08:23→21:07)
[2022-03-02] MEDS: PANTOPRAZOLE 40 MG VIAL IV SCH (08:23)
[2022-03-02] MEDS: ZINC SULFATE 220 MG CAPSULE GT SCH (08:23)
[2022-03-02] MEDS: VITAMINS A AND D 56.7 GM TUBE TP SCH (08:25)
[2022-03-02] MEDS: THERAHONEY GEL 1.5 OZ TUBE TP SCH (08:25)
[2022-03-02] MEDS: Z GUARD REMEDY 4 OZ OINT TP SCH (08:26)
[2022-03-02 08:27] LABS: HEMOGLOBIN 6.8 g/dL (13.5-17.5)
--- NOTE | 2022-03-02 08:28 | NUR ---
TELE/RN HEMOGLOBIN 6.8. REPORTED TO DR. SWENSON
[2022-03-02 10:04] LABS: BASOPHILS % (MANUAL) 0 % (0.0-2.0); EOSINOPHILS % (MANUAL) 1 % (0-4); LYMPHOCYTES % (MANUAL) 9 % (16-48); MONOCYTES % (MANUAL) 11 % (0-11.0); NEUTROPHILS % (MANUAL) 79 (42-76)
[2022-03-02] MEDS: MEROPENEM 500 MG in IV NS 0.9% 50 ML IV SCH (12:19)
[2022-03-02 13:07] LABS: *SPE A/G RATIO 0.5 (0.7-1.7); *SPE ALPHA-1-GLOBULIN 0.5 g/dL (0.0-0.4); *SPE ALPHA-2-GLOBULIN 0.9 g/dL (0.4-1.0); *SPE BETA GLOBULIN 0.8 g/dL (0.7-1.3); *SPE M-SPIKE Not Observed g/dL (Not Observed)
[2022-03-02] MEDS: NEPRO 1,000 ML BOTTLE GT PRN (16:23)
[2022-03-02] MEDS: ASCORBIC ACID 500 MG TABLET GT SCH (17:21)
--- NOTE | 2022-03-02 17:48 | NUR ---
TELE/RN PHONE CONSENT DONE WITH MATTHEW PERRY (SON) REGARDING SCHEDULED HIDA SCAN FOR AM
--- NOTE | 2022-03-02 18:40 | NUR ---
TELE/RN PATIENT REMAINS IN BED, OBTUNDED, EYES OPEN. PATIENT ON MECHANICAL VENTILATOR WITH TRACH TUBE FIO2 30% SAT 100% ON BEDSIDE MONITOR. KNUTSON CATH IN PLACE, PATENT AND DRAINING CLOUD TORRES COLOR URINE. LEFT SOFT WRIST AND MITTEN RESTRAIN ON, SKIN WARM AND INTACT. GTUBE IN PLACE RUNNING NEPHRO AT 40CC/HR. ALL NEEDS ATTENDED DURING SHIFT. BED LOCKED AND IN LOWEST POSITION, CALL LIGHT WITHIN REACH, 3 SIDE RAILS UP. WILL ENDORSE TO STILL OPERATOR HELPER RN FOR [facility].
[2022-03-02] MEDS: PANTOPRAZOLE 40 MG/PACK PACK NG SCH (21:07)
--- NOTE | 2022-03-02 21:20 | NUR ---
TRANSACTION ADVISORY SERVICES MANAGER OPENING NOTE PT RECEIVED IN BED, NON-VERBAL, OBTUNDED, OPENS EYES. ON SHILEY #6, AC18, TV 500, [id number]%, PEEP 5 WITH CURRENT O2SAT OF 99%; NO S/S OF RESP DISTRESS, NO SOB OR COUGH, NON-LABORED AND EQUAL BREATHING. PT ATTACHED TO EXTERNAL MONITOR ST WITH CURRENT HR OF 127. KNUTSON INTACT AND PATENT WITH NO SIGNS OF LEAKING, DRAINING CLEAR AND YELLOW URINE. PT NOTED TO HAVE SOFT WRIST RESTRAINT AND MITTEN ON LEFT HAND; NO SIGNS OF IMPAIRED SKIN OR CIRCULATION; WILL PROVIDE RELEASE OF RESTRAINTS, HYGIENE. GTD C/D/I WITH GLUCERNA NEPRO RUNNING AT 40 ML/HR; WILL TURN OFF FEEDING AT 0000 03/03/22 FOR HIDA SCAN SCHEDULED FOR TOMORROW. HILDA MIDLINE INTACT AND PATENT, FLUSHES EASILY WITH NO RESISTANCE, NS RUNNING AT 90 ML/HR. BED IN LOWEST POSITION, CALL LIGHT WITHIN REACH, SIDE RAILS UP X3. WILL CONTINUE TO MONITOR THROUGHOUT THE NIGHT.
--- NOTE | 2022-03-02 23:59 | NUR ---
RN NOTE GT FEEDING GLUCERNA HELD FOR HIDA SCAN SCHEDULED FOR TODAY.
[2022-03-03] VITALS: BP 137/82
[2022-03-03] MEDS: MEROPENEM 500 MG in IV NS 0.9% 50 ML IV SCH ×3 (00:20→23:25)
[2022-03-03] MEDS: BLOOD SUGAR DIAGNOSTIC 1 EACH STRIP IN SCH ×5 (00:41→23:17)
[2022-03-03] MEDS: IV NS 0.9% 1,000 ML IV SCH ×2 (02:02→12:45)
[2022-03-03 04:00] VITALS: BP 135/79
[2022-03-03] MEDS: LANTHANUM CARBONATE 500 MG TAB.CHEW GT SCH ×3 (04:08→21:50)
[2022-03-03] MEDS: DILTIAZEM HCL 30 MG TABLET GT SCH ×3 (04:09→21:51)
[2022-03-03] MEDS: GABAPENTIN 100 MG CAPSULE PO SCH ×3 (04:09→21:50)
[2022-03-03] MEDS: DEXTROSE 50%-WATER 50 ML DISP.SYRIN IV PRN ×2 (05:32→12:40)
--- NOTE | 2022-03-03 05:32 | NUR ---
RN NOTE PT NOTED TO HAVE BG OF 63. D50 ADMINISTERED. WILL MONITOR FOR EFFECTIVENESS.
--- NOTE | 2022-03-03 06:24 | NUR ---
RN NOTE AFTER ADMINISTERING D5, BG INCREASED TO 129 MG/DL
[2022-03-03 06:40] LABS: BASOPHILS # (AUTO) 0.2 K/uL (0.0-0.2); BASOPHILS % (AUTO) 0.9 % (0.0-2.0); EOSINOPHILS % (AUTO) 3.1 % (0.0-6.0); HEMATOCRIT 25 % (39-51); HEMOGLOBIN 8.2 g/dL (13.5-17.5); LYMPHOCYTES # (AUTO) 1.3 K/uL (0.8-4.8); LYMPHOCYTES % (AUTO) 6.9 % (20.0-44.0); MEAN CORPUSCULAR HGB CONC 33 g/dl (31.0-36.0); MEAN CORPUSCULAR VOLUME 90 fL (80-96); MONOCYTES # (AUTO) 2.1 K/uL (0.1-1.30); MONOCYTES % (AUTO) 11.2 % (2.0-12.0); NEUTROPHILS # (AUTO) 14.4 K/uL (1.8-8.9); NEUTROPHILS % (AUTO) 77.9 % (43.0-81.0); PLATELET COUNT (AUTO) 336 K/uL (150-450); RED BLOOD CELL COUNT(AUTO) 2.76 MIL/uL (4.5-6.0); WHITE BLOOD COUNT (AUTO) 18.5 K/uL (4.3-11.0)
--- NOTE | 2022-03-03 06:51 | NUR ---
TRAILER TRUCK DRIVER CLOSING NOTE PT REMAINS IN BED, NON-VERBAL, OBTUNDED, OPENS EYES. PT REMAINS ON SAME VENT SETTINGS WITH O2SAT RANGING FROM 99%-100% THROUGHOUT THE NIGHT; PT TOLERATED VENT SETTINGS WELL; NO S/S OF RESP DISTRESS, NON-LABORED AND EQUAL BREATHING, NO COUGH OR SOB. ATTACHED TO EXTERNAL MONITOR, ST WITH HR 110-127, HR WAS HIGH 135. KNUTSON INTACT AND PATENT, NO SIGNS OF LEAKING, DRAINING CLEAR AND YELLOW URINE. WOUND CARE PERFORMED AND APPLIED NEW DRESSING. LEFT SOFT WRIST RESTRAINT AND MITTEN REMAINS IN PLACE, RENEWED RESTRAINTS AT 0600; NO SIGNS OF IMPAIRED SKIN AND CIRCULATION; PROVIDED PT WITH RELEASE OF RESTRAINTS AND HYGIENE. GTF STOPPED AT 0000 FOR HIDA SCAN. HILDA MIDLINE INTACT AND PATENT, FLUSHES EASILY WITH NO RESISTANCE, NS RUNNING AT 90 ML/HR. BED IN LOWEST POSITION, CALL LIGHT WITHIN REACH, SIDE RAILS UP X3. WILL ENDORSE TO DAYSHIFT NURSE TO CONTINUE CARE.
[2022-03-03 07:25] LABS: ALBUMIN 1.5 g/dL (3.4-5.0); BILIRUBIN,DIRECT 4.5 mg/dL (0.0-0.2); BILIRUBIN,TOTAL 5.1 mg/dL (0.2-1.0); CALCIUM, SERUM 8.1 mg/dL (8.5-10.1); CREATININE 2.7 mg/dL (0.6-1.3); MAGNESIUM 1.6 mg/dL (1.8-2.4); PHOSPHORUS 3.5 mg/dL (2.5-4.9); POTASSIUM 3.3 mmol/L (3.5-5.1); TOTAL PROTEIN, SERUM 7.2 g/dL (6.4-8.2)
--- NOTE | 2022-03-03 07:30 | NUR ---
pt found in bed A/O 4X complaining of pain. is connected to iv fluid. upon assessment iv line patnet no s/s of infiltration. pt in calm and following directions. admitted for generalized abdominal pain. morphine given around the clock for pain control related to GI issue.
[2022-03-03 08:00] VITALS: BP 137/70
[2022-03-03] MEDS: VITAMINS A AND D 56.7 GM TUBE TP SCH (09:00)
[2022-03-03] MEDS: THERAHONEY GEL 1.5 OZ TUBE TP SCH (09:00)
[2022-03-03] MEDS: Z GUARD REMEDY 4 OZ OINT TP SCH (09:00)
[2022-03-03 12:00] VITALS: BP 124/70
[2022-03-03] MEDS: BUMETANIDE (1 MG) 1 MG TABLET GT SCH (12:00)
[2022-03-03] MEDS: PANTOPRAZOLE 40 MG/PACK PACK NG SCH ×2 (12:00→21:50)
[2022-03-03] MEDS: VORICONAZOLE 200 MG TABLET PO SCH ×2 (12:00→21:50)
[2022-03-03] MEDS: ACETAMINOPHEN 650 MG/20.3 ML UDC GT PRN ×2 (12:00→23:36)
[2022-03-03] MEDS: ZINC SULFATE 220 MG CAPSULE GT SCH (12:00)
[2022-03-03 16:00] VITALS: BP 105/62
[2022-03-03] MEDS: ASCORBIC ACID 500 MG TABLET GT SCH (17:12)
--- NOTE | 2022-03-03 18:27 | NUR ---
CLOSING NOTE PT V/S STABLE, ON MAINTENANCE FLUIDS NS 90ML/HR. PT WENT FOR [facility]IDA SCAN WAITING FOR RESULTS. BLOOD SUGARS CONTINUE TO BE LOW IN THE 60 D5 WAS GIVEN. TUBE FEEDINGS WERE STOPPED MULTIPLE TIMES DUE TO TRANSPORTATION MAY HAVE CAUSED LOW GLUCOSE FEEDINGS HAS SINCE BEEN CONTINUED. SACRAL DRESSING CHANGED AND PACKED.
--- NOTE | 2022-03-03 19:05 | NUR ---
RN NOTES RECEIVED PT FOR CONTINUITY OF CARE. PATIENT A/OX0 IN NO S/SX OF ACUTE DISTRESS AT THIS TIME; CURRENTLY ON MECHANICAL VENT; SETTING PRESCRIBED, WITH 02 SAT >95% AT THIS TIME. WITH IV ACCESS PATENT, INTACT AND FLUSHING WELL. WITH RUNNING NS@90CC/HR AND GTUBE FEEDING RUNNING PRESCRIBED. WILL ENSURE SAFETY MEASURES WITHIN THE SHIFT. PATIENT BED ALARM IS ON. HEAD OF BED ELEVATED. BED IS LOCKED, IN LOWEST POSITION AND SIDE RAILS UP. CALL LIGHT WITHIN REACH OF THE PATIENT. WILL CONTINUE TO MONITOR AND REASSESS FOR ANY CHANGES AND WILL CARRY OUT ANY ONGOING AND ACTIVE MD ORDER.
[2022-03-03 20:00] VITALS: BP 117/76
[2022-03-03] MEDS ORDERED: SILVER NITRATE APPLICATOR 1 EA BOX TP SCH (21:00)
[2022-03-03] MEDS ORDERED: LIDOCAINE 1%-EPI 1:100,000 20 ML VIAL TP ONE (21:00)
[2022-03-03] MEDS ORDERED: SODIUM BICARBONATE SYR 50 MEQ/50 ML DISP.SYRIN ONE (22:36)
[2022-03-03] MEDS: Sodium Bicarbonate 50 MEQ in IV NS 0.9% 1,000 ML IV SCH (22:39)
[2022-03-03] MEDS: INSULIN REGULAR, HUMAN 100 UNIT/ML 3 ML VIAL SQ PRN (23:17)
[2022-03-04] VITALS (12 sets, daily range): BP systolic 110–155; BP diastolic 62–89
--- NOTE | 2022-03-04 04:00 | NUR ---
RN NOTES PATIENT REMAINED TO BE IN NO SIGNS OF ACUTE RESPIRATORY DISTRESS , VITAL SIGNS STABLE AT THIS TIME. REGULAR TURNING AND REPOSITIONING DONE, SUCTIONING DONE, WOUND CARE AND AM PATIENT CARE RENDERED WILL CONTINUE TO MONITOR AND REASSESS FOR ANY CHANGES THROUGHOUT THE SHIFT.
[2022-03-04] MEDS: DILTIAZEM HCL 30 MG TABLET GT SCH ×3 (05:23→21:12)
[2022-03-04] MEDS: LANTHANUM CARBONATE 500 MG TAB.CHEW GT SCH ×3 (05:23→21:12)
[2022-03-04] MEDS: PANTOPRAZOLE 40 MG/PACK PACK NG SCH ×2 (05:30→21:12)
[2022-03-04] MEDS: BLOOD SUGAR DIAGNOSTIC 1 EACH STRIP IN SCH ×3 (05:42→18:00)
[2022-03-04] MEDS: GABAPENTIN 100 MG CAPSULE PO SCH ×3 (05:43→21:12)
[2022-03-04] MEDS: INSULIN REGULAR, HUMAN 100 UNIT/ML 3 ML VIAL SQ PRN (05:43)
[2022-03-04 06:33] LABS: BILIRUBIN,DIRECT 3.8 mg/dL (0.0-0.2); BILIRUBIN,TOTAL 4.4 mg/dL (0.2-1.0); CALCIUM, SERUM 7.9 mg/dL (8.5-10.1); CREATININE 2.6 mg/dL (0.6-1.3); MAGNESIUM 1.8 mg/dL (1.8-2.4); PHOSPHORUS 3.6 mg/dL (2.5-4.9); POTASSIUM 3.6 mmol/L (3.5-5.1); TOTAL PROTEIN, SERUM 7.2 g/dL (6.4-8.2)
[2022-03-04 06:42] LABS: ALBUMIN 1.4 g/dL (3.4-5.0)
[2022-03-04 06:46] LABS: BASOPHILS # (AUTO) 0.1 K/uL (0.0-0.2); BASOPHILS % (AUTO) 0.8 % (0.0-2.0); EOSINOPHILS % (AUTO) 3.5 % (0.0-6.0); HEMATOCRIT 25 % (39-51); HEMOGLOBIN 8.6 g/dL (13.5-17.5); LYMPHOCYTES # (AUTO) 1.1 K/uL (0.8-4.8); MEAN CORPUSCULAR HGB CONC 34 g/dl (31.0-36.0); MEAN CORPUSCULAR VOLUME 90 fL (80-96); MONOCYTES # (AUTO) 1.8 K/uL (0.1-1.30); MONOCYTES % (AUTO) 11.2 % (2.0-12.0); NEUTROPHILS # (AUTO) 12.2 K/uL (1.8-8.9); NEUTROPHILS % (AUTO) 77.5 % (43.0-81.0); PLATELET COUNT (AUTO) 420 K/uL (150-450); RED BLOOD CELL COUNT(AUTO) 2.81 MIL/uL (4.5-6.0); WHITE BLOOD COUNT (AUTO) 15.8 K/uL (4.3-11.0)
--- NOTE | 2022-03-04 06:46 | NUR ---
RN CLOSING NOTE: PATIENT REMAINS IN ROOM IN NO SIGNS OF RESPIRATORY DISTRESS, PATIENT STILL ON MECH VENT; SETTINGS PRESCRIBED;TOLERATING WELL SATURATING @ >95% SP02. SAFETY MEASURES IMPLEMENTED, BED IN LOWEST POSITION, LOCKED, SIDE RAILS UP, CALL LIGHT WITHIN REACH. ALL NEEDS AND ORDERS ADDRESSED DURING THE SHIFT. IV ACCESS MAINTAINED INTACT, SECURED AND FLUSHING WELL WITH IV FLUID RUNNING ORDERED AND TUBE FEEDING PRESCRIBED. ALL DUE MEDS GIVEN ORDERED & SCHEDULED; PATIENT TOLERATED WELL. PATIENT KEPT CLEAN AND COMFORTABLE WITHIN THE SHIFT. PATIENT ENDORSED TO INCOMING SHIFT RN WITH STABLE VITAL SIGN AND FOR CONTINUITY OF CARE.
--- NOTE | 2022-03-04 07:30 | NUR ---
CORE RESCUER OPENING NOTE PATIENT IN BED. PATIENT IS NONVERBAL AND OBTUNDED. PATIENT IS SINUS TACHYCARDIA. PATIENT IS NPO EXCEPT MEDS. PATIENT HAS NEPHRO RUNNING AT 40 ML/HR. PATIENT HAS RESTRAINTS ON LEFT ARM. SOFT MITTEN RESTRAINT. PATIENT HAS RIGHT UPPER ARM MIDLINE. PATIENT IS ON MECHANICAL VENTILATOR WITH ORDERED SETTINGS. TOLERATING WELL AT 100%. GTUBE PATENT. ALL SAFETY MEASURES IMPLEMENTED, BED LOCKED IN LOWEST POSITION, LOCKED, SIDE RAILS UP, CALL LIGHT WITHIN REACH.WILL CONTINUE TO ASSESS THROUGHOUT SHIFT
[2022-03-04] MEDS: Sodium Bicarbonate 50 MEQ in IV NS 0.9% 1,000 ML IV SCH ×3 (08:41→21:27)
[2022-03-04] MEDS: VORICONAZOLE 200 MG TABLET PO SCH ×2 (09:00→21:12)
[2022-03-04] MEDS: ZINC SULFATE 220 MG CAPSULE GT SCH (09:19)
[2022-03-04] MEDS: BUMETANIDE (1 MG) 1 MG TABLET GT SCH (09:19)
--- NOTE | 2022-03-04 09:28 | NUR ---
SPOKE WITH . ORDERED PERCUTANEOUS CHOLECYSTOMY TUBE PLACEMENT.
[2022-03-04] MEDS: THERAHONEY GEL 1.5 OZ TUBE TP SCH (09:49)
--- NOTE | 2022-03-04 11:34 | NUR ---
rabia rn note spoke with dr Az bryant to place cholecystomy tube placement under interventional radiologist, consent done ,spoke with radiologist stated thst dr dolan radiologist will do and of he consider will be done, then procedure possible do tomorrow
[2022-03-04] MEDS: VITAMINS A AND D 56.7 GM TUBE TP SCH (12:47)
[2022-03-04] MEDS: Z GUARD REMEDY 4 OZ OINT TP SCH (12:48)
[2022-03-04] MEDS: MEROPENEM 500 MG in IV NS 0.9% 50 ML IV SCH (12:48)
[2022-03-04] MEDS: ACETAMINOPHEN 650 MG/20.3 ML UDC GT PRN (13:18)
--- NOTE | 2022-03-04 14:23 | NUR ---
rabia/tele note per radiologist unable to do procedure today due to unavailable staff at this time gave radiologist phone number to call dr. kennedy will follow up patient is too fragile for CT scan at this time due to elevated HR and low grade fever.
--- NOTE | 2022-03-04 14:37 | NUR ---
[facility] RN NOTE PER RADIOLOGIST BASILIO UNABLE TO TO PROCEDURE AT THIS TIME PLACEMENT CHOLECYSTOMY TUBE UDDER INTERVENTIONAL RADIOLOGIST DUE TO NURSING STUFF NOT AVAILABLE AT THIS TIME, HE SPOKE WITH DR SUAREZ SURGEON, AWARE OF THIS ,MOST LIKELY WILL BE DONE ON MONDAY , NO NEW ORDER GIVEN AT THIS TIME
[2022-03-04] MEDS ORDERED: IOHEXOL-300 100 ML VIAL IV ONE (15:33)
[2022-03-04] MEDS ORDERED: FLUMAZENIL 0.5 MG VIAL IV PRN (17:30)
[2022-03-04] MEDS ORDERED: FENTANYL PF 250MCG/5ML AMPUL IV PRN (17:30)
[2022-03-04] MEDS ORDERED: MIDAZOLAM HCL 2 MG/2ML VIAL IV PRN (17:30)
[2022-03-04] MEDS ORDERED: NALOXONE PREFILLED SYRINGE 2 MG/2 ML SYRINGE IV PRN (17:30)
[2022-03-04] MEDS: ASCORBIC ACID 500 MG TABLET GT SCH (18:00)
--- NOTE | 2022-03-04 18:15 | NUR ---
patient picked up for procedure Addendum: 03/04/22 at 1836 by SHAHLA GALAVIZ RN percutaneous cholecystomy tube placement and ct scan Addendum: 03/04/22 at 1843 by SHAHLA GALAVIZ RN by interventional radiology
--- NOTE | 2022-03-04 18:15 | NUR ---
RN NOTES PT RECEIVED TO RADIOLOGY DEPT, PT IS VENT/ TRACH DEPENDENT, OBTUNDED , OPENS EYES AT TIMES , ON MONITOR HR IN 120'S, ST , DU=888/80, O2 100%, R=29, WAITING FOR RADIOLOGIST TO ARRIVE FOR PROCEDURE, CONTINUE TO MONITOR
--- NOTE | 2022-03-04 18:36 | NUR ---
WEB RETAILER CLOSING NOTE PATIENT CURRENTLY IN PROCEDURE ROOM FOR PERCUTANEOUS CHOLECYSTOMY TUBE PLACEMENT BY INTERVENTIONAL RADIOLOGY AND CT SCAN. BEFORE PATIENT LEFT FOR PROCEDURE. PATIENT IN BED.PATIENT IS NONVERBAL AND OBTUNDED. PATIENT IS CURRENTLY ON TELE MONITOR AT SINUS TACHYCARDIA. PATIENT IS NPO EXCEPT MEDS. PATIENT HAS NEPHRO RUNNING AT 40 ML/HR. PATIENT HAS SOFT RESTRAINTS ON LEFT ARM. RELEASED RESTRAINTS EVERY 2 HOURS AND CHECKED FOR CIRCULATION. SOFT MITTEN RESTRAINT ON LEFT ARM. PATIENT HAS RIGHT UPPER ARM MIDLINE. IV PATENT AND FLUSHES WELL. PATIENT HAS KNUTSON CATHETHER. DRAINING TO GRAVITY. PATIENT IS ON MECHANICAL VENTILATOR WITH ORDERED SETTINGS. TOLERATING WELL AT 100%. GTUBE PATENT. ALL SAFETY MEASURES IMPLEMENTED, BED LOCKED IN LOWEST POSITION, LOCKED, SIDE RAILS UP.
--- NOTE | 2022-03-04 19:00 | NUR ---
RN NOTES GALLBLADDER DRAIN INSERTION DONE BY DR QUEZADA AT RADIOLOGY DEPT , NO SEDATION GIVEN DURING THE PROCEDURE PER DR QUEZADA ORDER . PT TOLERATED THE PROCEDURE WELL, VSS STABLE. CONTINUE TO MONITOR
--- NOTE | 2022-03-04 19:20 | NUR ---
PT TRANSPORTED BACK FROM CT SCAN TO [facility] ROOM 112. NO RESPIRATORY DISTRESS NOTED AT THIS TIME.
--- NOTE | 2022-03-04 19:20 | NUR ---
RN NOTES PT BACK TO ROOM 112-1 , GALLBLADDER DRAIN BAG DRAINING TO GRAVITY WITH SMALL AMOUNT OF SEROSANGUINEOUS FLUID, SITE CLEAN , DRY AND INTACT, PT STABLE , REPORT GIVEN TO ALYSA MEDINA FOR CONTINUITY OF CARE .
--- NOTE | 2022-03-04 19:25 | NUR ---
RN NOTES RECEIVED PT FOR CONTINUITY OF CARE FROM PACU, REPORT GIVEN BY ADAM CASE. PATIENT OBTAUNDED IN NO S/SX OF ACUTE DISTRESS AT THIS TIME; CURRENTLY ON MECH VENT WITH SETTINGS PRESCRIBED; WITH 02 SAT 99% AT THIS TIME. PT S/P PERCUTANEOUS CHOLECYSTECTOMY TUBE PLACEMENT ON THE R ABDOMEN WITH TUBE SECURED AND INTACT, BAG DRAINING SMALL AMOUNT OF REDDISH OUTPUT AT THIS TIME. WITH IV ACCESS PATENT, INTACT AND FLUSHING WELL. WILL RESUME IV FLUID AND TUBE FEEDING PRESCRIBED. WILL ENSURE SAFETY MEASURES WITHIN THE SHIFT. PATIENT BED ALARM IS ON. HEAD OF BED ELEVATED. BED IS LOCKED, IN LOWEST POSITION AND SIDE RAILS UP. CALL LIGHT WITHIN REACH OF THE PATIENT. WILL CONTINUE TO MONITOR AND REASSESS FOR ANY CHANGES AND WILL CARRY OUT ANY ONGOING AND ACTIVE MD ORDER.
--- NOTE | 2022-03-04 19:40 | NUR ---
PT RECEIVED TRACHED WITH SHILEY 6 CUFFED ON MECHANICAL VENTILATION WITH THE SETTINGS OF AC 18,VT 500,FIO2 30%,PEEP 5. AMBU BAG/BACK UP TRACH @ BEDSIDE. SX DONE, TRACH SECURED AND PATENT. ALARMS ON AND AUDIBLE. NO RESPIRATORY DISTRESS NOTED. WILL MONITOR T/O SHIFT.
[2022-03-05] VITALS: BP 135/71
[2022-03-05] MEDS: MEROPENEM 500 MG in IV NS 0.9% 50 ML IV SCH ×3 (00:16→23:08)
[2022-03-05] MEDS: BLOOD SUGAR DIAGNOSTIC 1 EACH STRIP IN SCH ×5 (00:20→23:09)
[2022-03-05] MEDS: INSULIN REGULAR, HUMAN 100 UNIT/ML 3 ML VIAL SQ PRN ×3 (00:21→23:12)
[2022-03-05] MEDS: ACETAMINOPHEN 650 MG/20.3 ML UDC GT PRN ×2 (02:24→18:03)
[2022-03-05 04:00] VITALS: BP 132/73
--- NOTE | 2022-03-05 04:00 | NUR ---
RN NOTES PATIENT REMAINED TO BE IN NO SIGNS OF ACUTE RESPIRATORY DISTRESS , VITAL SIGNS STABLE AT THIS TIME. REGULAR TURNING AND REPOSITIONING DONE, SUCTIONING DONE, AND AM PATIENT CARE RENDERED WILL CONTINUE TO MONITOR AND REASSESS FOR ANY CHANGES THROUGHOUT THE SHIFT.
[2022-03-05] MEDS: LANTHANUM CARBONATE 500 MG TAB.CHEW GT SCH ×3 (04:53→21:42)
[2022-03-05] MEDS: GABAPENTIN 100 MG CAPSULE PO SCH ×3 (04:58→21:42)
[2022-03-05] MEDS: DILTIAZEM HCL 30 MG TABLET GT SCH ×3 (04:58→21:42)
[2022-03-05] MEDS: NEPRO 1,000 ML BOTTLE GT PRN (05:08)
[2022-03-05 06:09] LABS: BASOPHILS # (AUTO) 0.1 K/uL (0.0-0.2); BASOPHILS % (AUTO) 1.2 % (0.0-2.0); EOSINOPHILS % (AUTO) 7.5 % (0.0-6.0); HEMATOCRIT 23 % (39-51); HEMOGLOBIN 7.7 g/dL (13.5-17.5); LYMPHOCYTES # (AUTO) 1.5 K/uL (0.8-4.8); LYMPHOCYTES % (AUTO) 12.3 % (20.0-44.0); MEAN CORPUSCULAR HGB CONC 34 g/dl (31.0-36.0); MEAN CORPUSCULAR VOLUME 90 fL (80-96); MONOCYTES # (AUTO) 1.1 K/uL (0.1-1.30); MONOCYTES % (AUTO) 9.2 % (2.0-12.0); NEUTROPHILS # (AUTO) 8.5 K/uL (1.8-8.9); NEUTROPHILS % (AUTO) 69.8 % (43.0-81.0); PLATELET COUNT (AUTO) 392 K/uL (150-450); RED BLOOD CELL COUNT(AUTO) 2.54 MIL/uL (4.5-6.0); WHITE BLOOD COUNT (AUTO) 12.2 K/uL (4.3-11.0)
--- NOTE | 2022-03-05 06:53 | NUR ---
RN CLOSING NOTE: PATIENT REMAINS IN ROOM IN NO SIGNS OF RESPIRATORY DISTRESS, PATIENT STILL ON MECH VENT; SETTINGS PRESCRIBED;TOLERATING WELL SATURATING @ >95% SP02. CHOLECYSTECTOMY TUBE IN PLACE, INTACT AND SECURED, DRAINING 75 OUTPUT FOR THE SHIFT. SAFETY MEASURES IMPLEMENTED, BED IN LOWEST POSITION, LOCKED, SIDE RAILS UP, CALL LIGHT WITHIN REACH. ALL NEEDS AND ORDERS ADDRESSED DURING THE SHIFT. IV ACCESS MAINTAINED INTACT, SECURED AND FLUSHING WELL WITH IV FLUID RUNNING ORDERED AND TUBE FEEDING PRESCRIBED. ALL DUE MEDS GIVEN ORDERED & SCHEDULED; PATIENT TOLERATED WELL. PATIENT KEPT CLEAN AND COMFORTABLE WITHIN THE SHIFT. PATIENT ENDORSED TO INCOMING SHIFT RN WITH STABLE VITAL SIGN AND FOR CONTINUITY OF CARE.
[2022-03-05 07:26] LABS: BILIRUBIN,TOTAL 2.1 mg/dL (0.2-1.0); CALCIUM, SERUM 7.5 mg/dL (8.5-10.1); CREATININE 2.6 mg/dL (0.6-1.3); MAGNESIUM 1.7 mg/dL (1.8-2.4); PHOSPHORUS 3.1 mg/dL (2.5-4.9); TOTAL PROTEIN, SERUM 6.9 g/dL (6.4-8.2)
[2022-03-05 07:39] LABS: ALBUMIN 1.3 g/dL (3.4-5.0)
[2022-03-05 08:00] VITALS: BP 122/68
[2022-03-05] MEDS: VORICONAZOLE 200 MG TABLET PO SCH ×2 (08:27→21:42)
[2022-03-05] MEDS: BUMETANIDE (1 MG) 1 MG TABLET GT SCH (08:27)
[2022-03-05] MEDS: ZINC SULFATE 220 MG CAPSULE GT SCH (08:27)
[2022-03-05] MEDS: PANTOPRAZOLE 40 MG/PACK PACK NG SCH ×2 (08:27→22:04)
[2022-03-05] MEDS: Z GUARD REMEDY 4 OZ OINT TP SCH (09:00)
[2022-03-05] MEDS: VITAMINS A AND D 56.7 GM TUBE TP SCH (09:00)
[2022-03-05] MEDS: THERAHONEY GEL 1.5 OZ TUBE TP SCH (09:00)
[2022-03-05] MEDS ORDERED: POTASSIUM CHLORIDE 10 MEQ/50 ML PREMIXED IVPB FOR PERIPHERAL LINE IV ONE (10:00)
[2022-03-05] MEDS: Sodium Bicarbonate 50 MEQ in IV NS 0.9% 1,000 ML IV SCH ×3 (11:47→21:42)
[2022-03-05 12:00] VITALS: BP 132/77
--- NOTE | 2022-03-05 13:09 | NUR ---
RN NOTES RECEIVED PT IN BED, OBTUNDED. NO S/SX OF ACUTE DISTRESS AT THIS TIME, TRACH IN PLACE WITH VENT SETTINGS TOLERATING WELL. S/P PERCUTANEOUS CHOLECYSTECTOMY TUBE PLACEMENT ON THE R ABDOMEN INTACT, BAG DRAINING SMALL AMOUNT SEROSANGUINEOUS OUTPUT. IV ACCESS PATENT AND FLUSHING WELL. IV FLUID NA BICARB @ 125CC/HR. G TUBE NEPRO FEEDING PRESCRIBED. WILL ENSURE SAFETY MEASURES WITHIN THE SHIFT. WILL CONT TO MONITOR.
[2022-03-05 16:00] VITALS: BP 133/70
[2022-03-05] MEDS: ASCORBIC ACID 500 MG TABLET GT SCH (17:18)
--- NOTE | 2022-03-05 18:15 | NUR ---
RT Patient received on vent: AC 18 500 30% +5. Patient tachypneic and tachycardic. Suctioned small amount of secretions. Ambu bag and back up trach at bedside. Vent alarms on and audible. Vent plugged into red outlet. Addendum: 03/05/22 at 1832 by JACLYN RAUSCH RT RT Patient received on vent: AC 18 500 30% +5. Trach secured and patent. Suctioned small amount of secretions. Ambu bag and back up trach at bedside. Vent plugged into red outlet with alarms on and audible. Patient tachypneic and tachycardic. RN aware.
--- NOTE | 2022-03-05 18:45 | NUR ---
RN NOTE PT NOTED WITH T 100.3. PRN TYLENOL 650MG GIVEN. COOLING MEASURES DONE. WILL CONT TO MONITOR.
--- NOTE | 2022-03-05 19:03 | NUR ---
RN CLOSING NOTES PT IN BED, OBTUNDED. LEFT SOFT WRIST RESTRAINT IN PLACE, NO COMPLICATIONS NOTED.TRACH IN PLACE WITH VENT SETTINGS TOLERATING WELL. S/P PERCUTANEOUS CHOLECYSTECTOMY TUBE PLACEMENT ON THE R ABDOMEN INTACT, BAG DRAINING 50CC SEROSANGUINEOUS OUTPUT. IV ACCESS PATENT AND FLUSHING WELL. IV FLUID NA BICARB @ 125CC/HR. G TUBE NEPRO FEEDING AT 40ML/HR PRESCRIBED. ALL DUE MEDICATIONS GIVEN. WILL ENSURE SAFETY MEASURES WITHIN THE SHIFT. WILL ENDORSE TO NIGHTSHIFT RN.
--- NOTE | 2022-03-05 19:05 | NUR ---
RN NOTES RECEIVED PT FOR CONTINUITY OF CARE FROM PACU, REPORT GIVEN BY ADAM CASE. PATIENT OBTUNDED IN NO S/SX OF ACUTE DISTRESS AT THIS TIME; CURRENTLY ON MECH VENT WITH SETTINGS PRESCRIBED; WITH 02 SAT >95% AT THIS TIME. WITH IV ACCESS PATENT, INTACT AND FLUSHING WELL. WILL RESUME IV FLUID AND TUBE FEEDING PRESCRIBED. WITH CHOLECYSTECTOMY TUBE PLACEMENT ON THE R ABDOMEN WITH TUBE SECURED AND INTACT, BAG DRAINING SMALL AMOUNT OF REDDISH OUTPUT AT THIS TIME. WILL ENSURE SAFETY MEASURES WITHIN THE SHIFT. PATIENT BED ALARM IS ON. HEAD OF BED ELEVATED. BED IS LOCKED, IN LOWEST POSITION AND SIDE RAILS UP. CALL LIGHT WITHIN REACH OF THE PATIENT. WILL CONTINUE TO MONITOR AND REASSESS FOR ANY CHANGES AND WILL CARRY OUT ANY ONGOING AND ACTIVE MD ORDER.
[2022-03-05 20:00] VITALS: BP 139/67
--- NOTE | 2022-03-05 20:45 | NUR ---
RN NOTES NOTED PT'S TEMP IS AT 100.6@2000; COOLING MEASURES RENDERED. MEAT BUTCHER MADE AWARE. WILL CONTINUE TO MONITOR AND ASSESS THROUGHOUT THE SHIFT.
[2022-03-05] MEDS: LORAZEPAM INJ 2 MG/ML VIAL IV PRN (20:47)
[2022-03-06] VITALS: BP 125/61
[2022-03-06 04:00] VITALS: BP 127/81
[2022-03-06] MEDS: LANTHANUM CARBONATE 500 MG TAB.CHEW GT SCH ×3 (05:13→21:17)
[2022-03-06] MEDS: DILTIAZEM HCL 30 MG TABLET GT SCH ×3 (05:20→21:17)
[2022-03-06] MEDS: GABAPENTIN 100 MG CAPSULE PO SCH ×3 (05:20→21:17)
[2022-03-06] MEDS: BLOOD SUGAR DIAGNOSTIC 1 EACH STRIP IN SCH ×4 (05:32→23:39)
[2022-03-06] MEDS: INSULIN REGULAR, HUMAN 100 UNIT/ML 3 ML VIAL SQ PRN (05:32)
--- NOTE | 2022-03-06 06:30 | NUR ---
RN CLOSING NOTE: PATIENT REMAINS IN ROOM IN NO SIGNS OF RESPIRATORY DISTRESS, PATIENT STILL ON MECH VENT; SETTINGS PRESCRIBED;TOLERATING WELL SATURATING @ >95% SP02. CHOLECYSTECTOMY TUBE IN PLACE, INTACT AND SECURED, DRAINING 80CC OUTPUT FOR THE SHIFT. TMAX: 100.6; COOLING MEASURES GIVEN RECHECK DONE WNL. SAFETY MEASURES IMPLEMENTED, BED IN LOWEST POSITION, LOCKED, SIDE RAILS UP, CALL LIGHT WITHIN REACH. ALL NEEDS AND ORDERS ADDRESSED DURING THE SHIFT. IV ACCESS MAINTAINED INTACT, SECURED AND FLUSHING WELL WITH IV FLUID RUNNING ORDERED AND TUBE FEEDING PRESCRIBED. ALL DUE MEDS GIVEN ORDERED & SCHEDULED; PATIENT TOLERATED WELL. PATIENT KEPT CLEAN AND COMFORTABLE WITHIN THE SHIFT. PATIENT ENDORSED TO INCOMING SHIFT RN WITH STABLE VITAL SIGN AND FOR CONTINUITY OF CARE.
--- NOTE | 2022-03-06 07:00 | NUR ---
RN OPENING NOTE: RECEIVED REPORT FROM NIGHTSHIFT RN. PATIENT IN ROOM, NO SIGNS OF RESPIRATORY DISTRESS, PATIENT STILL ON MECH VENT; SETTINGS PRESCRIBED;TOLERATING WELL SATURATING @ >95% SP02. CHOLECYSTECTOMY TUBE IN PLACE, INTACT AND SECURED. SAFETY MEASURES IMPLEMENTED, BED IN LOWEST POSITION, LOCKED, SIDE RAILS UP, CALL LIGHT WITHIN REACH. IV ACCESS MAINTAINED INTACT, SECURED AND FLUSHING WELL WITH IV FLUID RUNNING ORDERED AND TUBE FEEDING PRESCRIBED. WILL CONTINUE PLAN OF CARE AND ANTICIPATE NEEDS.
[2022-03-06 07:17] LABS: BASOPHILS # (AUTO) 0.1 K/uL (0.0-0.2); EOSINOPHILS % (AUTO) 8.2 % (0.0-6.0); HEMATOCRIT 24 % (39-51); LYMPHOCYTES # (AUTO) 1.2 K/uL (0.8-4.8); LYMPHOCYTES % (AUTO) 9.2 % (20.0-44.0); MEAN CORPUSCULAR HGB CONC 34 g/dl (31.0-36.0); MEAN CORPUSCULAR VOLUME 88 fL (80-96); MONOCYTES # (AUTO) 1.2 K/uL (0.1-1.30); MONOCYTES % (AUTO) 9.3 % (2.0-12.0); NEUTROPHILS # (AUTO) 9.1 K/uL (1.8-8.9); NEUTROPHILS % (AUTO) 72.3 % (43.0-81.0); PLATELET COUNT (AUTO) 427 K/uL (150-450); RED BLOOD CELL COUNT(AUTO) 2.67 MIL/uL (4.5-6.0); WHITE BLOOD COUNT (AUTO) 12.6 K/uL (4.3-11.0)
[2022-03-06 08:00] VITALS: BP 144/82
[2022-03-06] MEDS: BUMETANIDE (1 MG) 1 MG TABLET GT SCH (08:46)
[2022-03-06] MEDS: PANTOPRAZOLE 40 MG/PACK PACK NG SCH ×2 (08:46→21:17)
[2022-03-06] MEDS: VORICONAZOLE 200 MG TABLET PO SCH (08:46)
[2022-03-06] MEDS: ZINC SULFATE 220 MG CAPSULE GT SCH (08:46)
[2022-03-06] MEDS: THERAHONEY GEL 1.5 OZ TUBE TP SCH (08:47)
[2022-03-06] MEDS: VITAMINS A AND D 56.7 GM TUBE TP SCH (08:47)
[2022-03-06] MEDS: Z GUARD REMEDY 4 OZ OINT TP SCH (08:47)
[2022-03-06 09:27] LABS: BILIRUBIN,TOTAL 1.3 mg/dL (0.2-1.0); CALCIUM, SERUM 7.5 mg/dL (8.5-10.1); CREATININE 2.5 mg/dL (0.6-1.3); MAGNESIUM 1.6 mg/dL (1.8-2.4); PHOSPHORUS 2.9 mg/dL (2.5-4.9); POTASSIUM 3.2 mmol/L (3.5-5.1); TOTAL PROTEIN, SERUM 6.9 g/dL (6.4-8.2)
[2022-03-06 09:42] LABS: ALBUMIN 1.3 g/dL (3.4-5.0)
[2022-03-06] MEDS: Sodium Bicarbonate 50 MEQ in IV NS 0.9% 1,000 ML IV SCH ×2 (10:22→18:22)
[2022-03-06 12:00] VITALS: BP 137/66
[2022-03-06] MEDS: MEROPENEM 500 MG in IV NS 0.9% 50 ML IV SCH (12:02)
[2022-03-06 16:00] VITALS: BP 145/77
[2022-03-06] MEDS: ASCORBIC ACID 500 MG TABLET GT SCH (17:45)
[2022-03-06] MEDS: LINEZOLID 600 MG TABLET PO SCH ×2 (17:45→21:17)
--- NOTE | 2022-03-06 18:35 | NUR ---
RN CLOSING NOTE: PATIENT IN ROOM, NO SIGNS OF RESPIRATORY DISTRESS, PATIENT STILL ON MECH VENT; SETTINGS PRESCRIBED;TOLERATING WELL SATURATING @ >95% SP02. CHOLECYSTECTOMY TUBE IN PLACE 30 MLS OUTPUT DURING SHIFT, INTACT AND SECURED. SAFETY MEASURES IMPLEMENTED, BED IN LOWEST POSITION, LOCKED, SIDE RAILS UP, CALL LIGHT WITHIN REACH. IV ACCESS MAINTAINED INTACT, SECURED AND FLUSHING WELL WITH IV FLUID RUNNING ORDERED AND TUBE FEEDING PRESCRIBED. ON SPORTS BROADCASTING INTERNSHIP SINUS TACHYCARDIA AT 132 BEATS PER MINUTE. KNUTSON CATHETER DRAINING YELLOW URINE. ALL DUE MEDICATIONS GIVEN. WILL ENDORSE TO NIGHTSHIFT FOR CONTINUATION OF CARE.
[2022-03-06] MEDS: NEPRO 1,000 ML BOTTLE GT PRN (19:52)
[2022-03-06 20:00] VITALS: BP 123/60
--- NOTE | 2022-03-06 21:06 | NUR ---
FURNITURE DETAILER OPENING NOTE PT RECEIVED IN BED, OBTUNDED, NON-VERBAL, OPENS EYES. PT ON SHILEY #6, AC 18, TV 500, FIO2 30%, PEEP 5; CURRENT O2SAT OF 99%; NO S/S OF RESP DISTRESS, NO SOB OR COUGH, NON-LABORED AND EQUAL BREATHING; APPEARS COMFORTABLE OVERALL. PT ATTACHED TO EXTERNAL MONITOR ST WITH HR OF 131. PT NOTED TO HAVE CHOLECYSTOSTOMY TUBE, DRAINING SEROUSANGUINOUS FLUID; TUBE INTACT AND PATENT WITH NO SIGNS OF LEAKING. KNUTSON INTACT AND PATENT, NO SIGNS OF LEAKING, DRAINING CLEAR AND YELLOW URINE. GTD C/D/I WITH NEPRO RUNNING AT 40 ML/HR; NO RESIDUAL NOTED. HILDA MIDLINE INTACT AND PATENT, FLUSHES EASILY WITH NO RESISTANCE, NAHCO3 RUNNING AT 125 ML/HR. BED IN LOWEST POSITION, CALL LIGHT WITHIN REACH, SIDE RAILS UP X3. WILL CONTINUE TO MONITOR THROUGHOUT THE NIGHT. Addendum: 03/07/22 at 0446 by PRINCESS NAEEM MEDINA CHOLECYSTOSTOMY TUBE DRAINING SANGUINEOUS FLUID
[2022-03-06] MEDS: ACETAMINOPHEN 650 MG/20.3 ML UDC GT PRN (21:18)
--- NOTE | 2022-03-06 21:18 | NUR ---
RN NOTE PT NOTED TO HAVE TEMPERATURE OF 101.2. PT ADMINISTERED TYLENOL 650 MG. WILL MONITOR FOR EFFECTIVENESS.
[2022-03-07] VITALS: BP 111/59
[2022-03-07] MEDS: Sodium Bicarbonate 50 MEQ in IV NS 0.9% 1,000 ML IV SCH ×3 (02:52→20:58)
[2022-03-07 04:00] VITALS: BP 117/69
[2022-03-07] MEDS: BLOOD SUGAR DIAGNOSTIC 1 EACH STRIP IN SCH ×4 (05:12→23:47)
[2022-03-07] MEDS: GABAPENTIN 100 MG CAPSULE PO SCH ×3 (05:15→20:19)
[2022-03-07] MEDS: LANTHANUM CARBONATE 500 MG TAB.CHEW GT SCH ×3 (05:15→20:18)
[2022-03-07] MEDS: DILTIAZEM HCL 30 MG TABLET GT SCH ×3 (05:16→20:59)
--- NOTE | 2022-03-07 06:46 | NUR ---
RN NOTE PT REMAINS IN BED, OBTUNDED, NON-VERBAL, OPENS EYES, NO SIGNIFICANT CHANGES TO NEURO STATUS. PT REMAINS ON SAME VENT SETTINGS; TOLERATED VENT SETTINGS WELL; O2SAT RANGED FROM 99%-100% THROUGHOUT THE NIGHT; NO S/S OF RESPIRATORY DISTRESS, NO SOB OR COUGH, NON-LABORED AND EQUAL BREATHING. ATTACHED TO EXTERNAL MONITOR, ST WITH BBB, HR RANGED FROM 106-131 LAST NIGHT. KNUTSON INTACT AND PATENT, NO SIGNS OF LEAKING, DRAINING CLEAR AND YELLOW URINE. CHOLECYSTOSTOMY INTACT AND PATENT, DRAINING SANGUINOUS FLUIDS WITH TOTAL OUTPUT OF 50 ML DURING THE NIGHT. GTD C/D/I, NEPRO RUNNING AT 40 ML/HR; PT TOLERATED FEEDING WELL. HILDA MIDLINE INTACT AND PATENT, FLUSHES EASILY WITH NO RESISTANCE, HAS SODIUM BICARB RUNNING AT 125 ML/HR. WOUNDS CLEANSED AND NEW DRESSINGS APPLIED. ALL DUE MEDS ADMINISTERED DURING THE NIGHT. BED IN LOWEST POSITION, CALL LIGHT WITHIN REACH, SIDE RAILS UP X3. WILL ENDORSE TO DAYSHIFT NURSE TO CONTINUE CARE.
[2022-03-07 07:03] LABS: CALCIUM, SERUM 7.4 mg/dL (8.5-10.1); CREATININE 2.3 mg/dL (0.6-1.3); MAGNESIUM 1.5 mg/dL (1.8-2.4); PHOSPHORUS 2.5 mg/dL (2.5-4.9); TOTAL PROTEIN, SERUM 6.4 g/dL (6.4-8.2)
[2022-03-07 07:28] LABS: ALBUMIN 1.2 g/dL (3.4-5.0)
--- NOTE | 2022-03-07 07:44 | NUR ---
OPENING NOTES RECEIVED REPORT FROM NIGHTSHIFT RN. PATIENT IN ROOM, NO SIGNS OF RESPIRATORY DISTRESS, PATIENT STILL ON MECH VENT; SETTINGS PRESCRIBED;TOLERATING WELL, CHOLECYSTECTOMY TUBE IN PLACE, INTACT AND SECURED. SAFETY MEASURES IMPLEMENTED, BED IN LOWEST POSITION, LOCKED, SIDE RAILS UP, CALL LIGHT WITHIN REACH. IV ACCESS MAINTAINED INTACT, TUBE FEEDING PRESCRIBED. WILL CONTINUE PLAN OF CARE AND ANTICIPATE NEEDS
--- NOTE | 2022-03-07 07:46 | NUR ---
RN NOTE RECEIVED CRITICAL LAB HGB 6.7. 03/07/2022 HGB WAS 8.0. ASKED FOR A REDRAW.
[2022-03-07 08:00] VITALS: BP 118/68
[2022-03-07] MEDS: BUMETANIDE (1 MG) 1 MG TABLET GT SCH (08:15)
[2022-03-07] MEDS: ZINC SULFATE 220 MG CAPSULE GT SCH (08:15)
[2022-03-07] MEDS: PANTOPRAZOLE 40 MG/PACK PACK NG SCH ×2 (08:15→20:14)
[2022-03-07] MEDS: LINEZOLID 600 MG TABLET PO SCH ×2 (08:15→20:14)
[2022-03-07 08:19] LABS: BASOPHILS # (AUTO) 0.1 K/uL (0.0-0.2); BASOPHILS % (AUTO) 0.7 % (0.0-2.0); EOSINOPHILS % (AUTO) 7.8 % (0.0-6.0); HEMATOCRIT 22 % (39-51); HEMOGLOBIN 7.4 g/dL (13.5-17.5); LYMPHOCYTES # (AUTO) 1.5 K/uL (0.8-4.8); LYMPHOCYTES % (AUTO) 10.9 % (20.0-44.0); MEAN CORPUSCULAR HGB CONC 34 g/dl (31.0-36.0); MEAN CORPUSCULAR VOLUME 89 fL (80-96); MONOCYTES # (AUTO) 1.3 K/uL (0.1-1.30); MONOCYTES % (AUTO) 9.5 % (2.0-12.0); NEUTROPHILS % (AUTO) 71.1 % (43.0-81.0); PLATELET COUNT (AUTO) 463 K/uL (150-450); RED BLOOD CELL COUNT(AUTO) 2.49 MIL/uL (4.5-6.0)
[2022-03-07] MEDS: Z GUARD REMEDY 4 OZ OINT TP SCH (08:42)
[2022-03-07] MEDS: VITAMINS A AND D 56.7 GM TUBE TP SCH (08:43)
[2022-03-07] MEDS: THERAHONEY GEL 1.5 OZ TUBE TP SCH (08:43)
[2022-03-07] MEDS ORDERED: Magnesium 1GM/D5W 100ML PREMIX 100 ML IV SCH (10:00)
[2022-03-07] MEDS: POTASSIUM CL. PREMIX PERIPHER. 50 ML IV SCH ×5 (11:07→18:30)
[2022-03-07 12:00] VITALS: BP 157/76
[2022-03-07] MEDS: INSULIN REGULAR, HUMAN 100 UNIT/ML 3 ML VIAL SQ PRN ×2 (12:05→23:47)
[2022-03-07] MEDS: MEROPENEM 500 MG in IV NS 0.9% 50 ML IV SCH ×3 (12:09)
[2022-03-07 16:00] VITALS: BP 152/89
[2022-03-07] MEDS: ASCORBIC ACID 500 MG TABLET GT SCH (17:31)
[2022-03-07] MEDS: NEPRO 1,000 ML BOTTLE GT PRN (18:35)
--- NOTE | 2022-03-07 18:56 | NUR ---
RN CLOSING NOTE: PATIENT IN ROOM, NO SIGNS OF RESPIRATORY DISTRESS, PATIENT STILL ON MECH VENT; SETTINGS PRESCRIBED;TOLERATING WELL SATURATING @ >95% SP02. CHOLECYSTECTOMY TUBE IN PLACE 30 MLS OUTPUT DURING SHIFT, INTACT AND SECURED. SAFETY MEASURES IMPLEMENTED, BED IN LOWEST POSITION, LOCKED, SIDE RAILS UP, CALL LIGHT WITHIN REACH. IV ACCESS MAINTAINED INTACT, SECURED AND FLUSHING WELL WITH IV FLUID RUNNING ORDERED AND TUBE FEEDING PRESCRIBED. ON STRAPPER OPERATOR. KNUTSON CATHETER DRAINING YELLOW URINE. ALL DUE MEDICATIONS GIVEN. WILL ENDORSE TO NIGHTSHIFT FOR CONTINUATION OF CARE.
--- NOTE | 2022-03-07 19:30 | NUR ---
AUTOMOTIVE METALSMITH OPENING NOTE PT RECEIVED IN BED, OBTUNDED, NON-VERBAL, OPENS EYES. PT ON SHILEY #6, AC 18, TV 500, FIO2 30%, PEEP 5; CURRENT O2 SAT OF 100%; NO S/S OF RESP DISTRESS, NO SOB OR COUGH, NON-LABORED AND EQUAL BREATHING; APPEARS COMFORTABLE OVERALL. PT ATTACHED TO EXTERNAL MONITOR ST WITH HR OF 124. RESTRAINTS NOTED IN LEFT WRIST WITH MITTEN. NO CIRCULATION ISSUES. CHOLECYSTOSTOMY TUBE NOTED, DRAINING SEROSANGUINEOUS FLUID; TUBE INTACT AND PATENT WITH NO SIGNS OF LEAKING. KNUTSON INTACT AND PATENT, NO SIGNS OF LEAKING, DRAINING CLEAR AND YELLOW URINE. GTD C/D/I WITH NEPRO RUNNING AT 40 ML/HR; NO RESIDUAL NOTED. HILDA MIDLINE INTACT AND PATENT, FLUSHES EASILY WITH NO RESISTANCE, NAHCO3 RUNNING AT 125 ML/HR. ALL SAFETY MEASURES IN PLACE: BED IN LOWEST POSITION, CALL LIGHT WITHIN REACH, SIDE RAILS UP X3. WILL CONTINUE TO MONITOR THROUGHOUT THE NIGHT.
[2022-03-07 20:00] VITALS: BP 108/67
--- NOTE | 2022-03-07 20:45 | NUR ---
RN NOTE PT NOTED TO HAVE TEMPERATURE OF 100.4. ADMINISTERED TYLENOL 650 MG ORDERED. COOLING MEASURES DONE. WILL MONITOR FOR EFFECTIVENESS.
[2022-03-07] MEDS: ACETAMINOPHEN 650 MG/20.3 ML UDC GT PRN (20:58)
[2022-03-08] MEDS: MEROPENEM 500 MG in IV NS 0.9% 50 ML IV SCH ×2 (01:00→12:10)
[2022-03-08 01:15] VITALS: BP 108/67
[2022-03-08 04:00] VITALS: BP 128/70
[2022-03-08] MEDS: LANTHANUM CARBONATE 500 MG TAB.CHEW GT SCH ×3 (04:02→20:11)
[2022-03-08] MEDS: GABAPENTIN 100 MG CAPSULE PO SCH ×3 (04:02→20:10)
[2022-03-08] MEDS: INSULIN REGULAR, HUMAN 100 UNIT/ML 3 ML VIAL SQ PRN ×2 (05:05→23:39)
[2022-03-08] MEDS: BLOOD SUGAR DIAGNOSTIC 1 EACH STRIP IN SCH ×4 (05:05→23:38)
[2022-03-08] MEDS: DILTIAZEM HCL 30 MG TABLET GT SCH ×3 (05:07→20:10)
--- NOTE | 2022-03-08 07:55 | NUR ---
RN NOTE PT RECEIVED IN BED, OBTUNDED, NON-VERBAL, TRACH IN PLACE, SHILEY #6,WITH VENT SETTINGS AC 18, TV 500, FIO2 30%, PEEP 5; TOLERATING WELL WITH O2 SAT OF 100%; NO S/S OF RESP DISTRESS. PT ST WITH HR OF 129. SOFT RESTRAINTS IN LEFT WRIST WITH MITTEN, NO CIRCULATION ISSUES. CHOLECYSTOSTOMY TUBE NOTED, DRAINING SEROSANGUINEOUS FLUID. G TUBE INTACT AND PATENT WITH FEEDING. HOB ELEVATED. KNUTSON INTACT AND PATENT DRAINING CLEAR AND YELLOW URINE. HILDA MIDLINE INTACT AND PATENT WITH IVF NAHCO3 RUNNING AT 125 ML/HR. ALL SAFETY MEASURES IN PLACE.
[2022-03-08 08:00] VITALS: BP 137/86
[2022-03-08] MEDS: BUMETANIDE (1 MG) 1 MG TABLET GT SCH (08:16)
[2022-03-08] MEDS: PANTOPRAZOLE 40 MG/PACK PACK NG SCH ×2 (08:16→20:09)
[2022-03-08] MEDS: LINEZOLID 600 MG TABLET PO SCH ×2 (08:17→20:09)
[2022-03-08] MEDS: ZINC SULFATE 220 MG CAPSULE GT SCH (08:17)
[2022-03-08 08:21] LABS: BASOPHILS # (AUTO) 0.2 K/uL (0.0-0.2); BASOPHILS % (AUTO) 1.2 % (0.0-2.0); EOSINOPHILS % (AUTO) 11.2 % (0.0-6.0); HEMATOCRIT 21 % (39-51); LYMPHOCYTES # (AUTO) 2.1 K/uL (0.8-4.8); LYMPHOCYTES % (AUTO) 15.2 % (20.0-44.0); MEAN CORPUSCULAR HGB CONC 33 g/dl (31.0-36.0); MEAN CORPUSCULAR VOLUME 89 fL (80-96); MONOCYTES # (AUTO) 1.2 K/uL (0.1-1.30); MONOCYTES % (AUTO) 8.8 % (2.0-12.0); NEUTROPHILS # (AUTO) 8.8 K/uL (1.8-8.9); NEUTROPHILS % (AUTO) 63.6 % (43.0-81.0); PLATELET COUNT (AUTO) 469 K/uL (150-450); RED BLOOD CELL COUNT(AUTO) 2.35 MIL/uL (4.5-6.0); WHITE BLOOD COUNT (AUTO) 13.9 K/uL (4.3-11.0)
[2022-03-08] MEDS: VITAMINS A AND D 56.7 GM TUBE TP SCH (08:32)
[2022-03-08] MEDS: THERAHONEY GEL 1.5 OZ TUBE TP SCH (08:33)
[2022-03-08] MEDS: Z GUARD REMEDY 4 OZ OINT TP SCH (08:33)
[2022-03-08 08:55] LABS: BILIRUBIN,TOTAL 0.8 mg/dL (0.2-1.0); CALCIUM, SERUM 7.4 mg/dL (8.5-10.1); CREATININE 2.1 mg/dL (0.6-1.3); MAGNESIUM 1.8 mg/dL (1.8-2.4); PHOSPHORUS 2.3 mg/dL (2.5-4.9); TOTAL PROTEIN, SERUM 6.6 g/dL (6.4-8.2)
[2022-03-08 08:58] LABS: ALBUMIN 1.2 g/dL (3.4-5.0)
[2022-03-08 09:00] LABS: POTASSIUM 3.5 mmol/L (3.5-5.1)
[2022-03-08] MEDS: Potassium Chloride 20 MEQ in IV D5W 1,000 ML IV SCH ×2 (10:51→22:40)
[2022-03-08 12:00] VITALS: BP 137/86
[2022-03-08 13:09] LABS: BAND % (MANUAL) 6 % (0.0-5.0); EOSINOPHILS % (MANUAL) 9 % (0-4); LYMPHOCYTES % (MANUAL) 14 % (16-48); MONOCYTES % (MANUAL) 4 % (0-11.0); NEUTROPHILS % (MANUAL) 67 (42-76)
[2022-03-08 16:00] VITALS: BP 137/88
[2022-03-08] MEDS: ASCORBIC ACID 500 MG TABLET GT SCH (17:21)
--- NOTE | 2022-03-08 17:46 | NUR ---
RN NOTE PT RESTING IN BED, OBTUNDED, NON-VERBAL, TRACH IN PLACE, SHILEY #6,WITH VENT SETTINGS AC 18, TV 500, FIO2 30%, PEEP 5; TOLERATING WELL WITH O2 SAT OF 100%; NO S/S OF RESP DISTRESS. PT ST WITH HR OF 129. SOFT RESTRAINTS IN LEFT WRIST WITH MITTEN, NO CIRCULATION ISSUES. CHOLECYSTOSTOMY TUBE NOTED, DRAINING SEROSANGUINEOUS FLUID. G TUBE INTACT AND PATENT WITH FEEDING. HOB ELEVATED. DUE MEDICATIONS GIVEN, AM AND PM CARE DONE. KNUTSON INTACT AND PATENT DRAINING CLEAR AND YELLOW URINE. HILDA MIDLINE INTACT AND PATENT WITH IVF NAHCO3 RUNNING AT 125 ML/HR. ALL SAFETY MEASURES IN PLACE. WILL ENDORSE TO NEXT SHIFT.
--- NOTE | 2022-03-08 19:30 | NUR ---
RN OPENING NOTE RECEIVED PT RESTING IN BED, OBTUNDED, NON-VERBAL, TRACH IN PLACE, SHILEY #6,WITH VENT SETTINGS AC 18, TV 500, FIO2 30%, PEEP 5; TOLERATING WELL WITH O2 SAT OF 100%; NO S/S OF RESP DISTRESS. TELE MONITOR READING ST 133. SOFT RESTRAINTS IN LEFT WRIST WITH MITTEN, NO CIRCULATION ISSUES. CHOLECYSTOSTOMY TUBE NOTED, DRAINING SEROSANGUINEOUS FLUID. G TUBE INTACT AND PATENT RUNNING NEPHRO AT 40ML/HR. . HOB ELEVATED. KNUTSON INTACT AND PATENT DRAINING CLEAR AND YELLOW URINE. HILDA MIDLINE INTACT AND PATENT WITH IVF POTASSIUM CHLORIDE RUNNING AT 75 ML/HR. ALL SAFETY MEASURES IN PLACE. WILL CONTINUE TO MONITOR THROUGH SHIFT.
[2022-03-08 20:00] VITALS: BP 140/75
[2022-03-08] MEDS: ACETAMINOPHEN 650 MG/20.3 ML UDC GT PRN (20:08)
--- NOTE | 2022-03-08 20:08 | NUR ---
RT NOTE PT RECEIVED TRACHED ON MECHANICAL VENTILATION. CUFF CHECKED VIA SALES CONSULTANT RESIDENTIAL MANAGER. TIMBO [address] AMBU BAG/BACK UP TRACH @ BEDSIDE. SUCTION DONE, TRACH SECURED AND PATENT. ALARMS ON AND AUDIBLE. VENT PLUGGED TO RED OUTLET. CONT. PULSE OX CONNECTED. Addendum: 03/08/22 at 2009 by VÍCTOR LEROY RT Amended: Links added.
[2022-03-08] MEDS ORDERED: MEROPENEM 500 MG VIAL IV ONE (23:55)
[2022-03-09] VITALS: BP 132/86
--- NOTE | 2022-03-09 | NUR ---
G TUBE FEEDING AND LINES CHANGED.
[2022-03-09] MEDS: MEROPENEM 500 MG in IV NS 0.9% 50 ML IV SCH ×2 (00:15→12:35)
[2022-03-09 04:00] VITALS: BP 143/85
[2022-03-09] MEDS: GABAPENTIN 100 MG CAPSULE PO SCH ×3 (05:47→21:02)
[2022-03-09] MEDS: DILTIAZEM HCL 30 MG TABLET GT SCH ×3 (05:47→19:28)
[2022-03-09] MEDS: LANTHANUM CARBONATE 500 MG TAB.CHEW GT SCH ×3 (05:47→21:02)
[2022-03-09] MEDS: BLOOD SUGAR DIAGNOSTIC 1 EACH STRIP IN SCH ×3 (06:12→18:09)
[2022-03-09] MEDS: INSULIN REGULAR, HUMAN 100 UNIT/ML 3 ML VIAL SQ PRN ×2 (06:12→12:03)
[2022-03-09 06:26] LABS: BASOPHILS # (AUTO) 0.1 K/uL (0.0-0.2); BASOPHILS % (AUTO) 0.5 % (0.0-2.0); EOSINOPHILS % (AUTO) 8.5 % (0.0-6.0); HEMATOCRIT 21 % (39-51); LYMPHOCYTES % (AUTO) 14.8 % (20.0-44.0); MEAN CORPUSCULAR HGB CONC 33 g/dl (31.0-36.0); MEAN CORPUSCULAR VOLUME 90 fL (80-96); MONOCYTES # (AUTO) 1.1 K/uL (0.1-1.30); MONOCYTES % (AUTO) 8.1 % (2.0-12.0); NEUTROPHILS # (AUTO) 9.1 K/uL (1.8-8.9); NEUTROPHILS % (AUTO) 68.1 % (43.0-81.0); PLATELET COUNT (AUTO) 493 K/uL (150-450); RED BLOOD CELL COUNT(AUTO) 2.35 MIL/uL (4.5-6.0); WHITE BLOOD COUNT (AUTO) 13.4 K/uL (4.3-11.0)
--- NOTE | 2022-03-09 06:52 | NUR ---
VEHICLE WINDOW TINTER CLOSING NOTE: PATIENT ASLEEP IN BED, NO S/S OF RESP DISTRESS, PATIENT STILL ON MECH VENT; SETTINGS PRESCRIBED;TOLERATING WELL SATURATING @ 100% SP02. TELE MONITOR READING ST 119.IV ACCESS HILDA MIDLINE, INTACT AND PATENT, RUNNING POTASSIUM CHLORIDE 20meq /NS @ 75ML/HR. CHOLECYSTECTOMY TUBE IN PLACE DRAINED 10 ML OF SEROSANGUINEOUS , INTACT AND SECURED. SAFETY MEASURES IMPLEMENTED, BED IN LOWEST POSITION, LOCKED, SIDE RAILS UP, CALL LIGHT WITHIN REACH. ALL DUE MEDICATIONS GIVEN. WILL ENDORSE TO MORNING SHIFT FOR CONTINUATION OF CARE.
--- NOTE | 2022-03-09 07:33 | NUR ---
RN OPENING NOTE RECEIVED PT RESTING IN BED, OBTUNDED, NON-VERBAL, TRACH IN PLACE, SHILEY #6,WITH VENT SETTINGS AC 18, TV 500, FIO2 30%, PEEP 5; TOLERATING WELL WITH O2 SAT OF 100%; NO S/S OF RESP DISTRESS. TELE MONITOR READING ST 130's. SOFT RESTRAINTS IN LEFT WRIST WITH MITTEN, NO CIRCULATION ISSUES. CHOLECYSTOSTOMY TUBE NOTED, DRAINING SEROSANGUINEOUS FLUID. G TUBE INTACT AND PATENT RUNNING NEPHRO AT 40ML/HR. . HOB ELEVATED. KNUTSON INTACT AND PATENT DRAINING CLEAR AND YELLOW URINE. HILDA MIDLINE INTACT AND PATENT WITH IVF D5W+ POTASSIUM CHLORIDE INFUSING AT 75 ML/HR. ALL SAFETY MEASURES IN PLACE. WILL CONTINUE PLAN OF CARE.
--- NOTE | 2022-03-09 07:40 | NUR ---
CALL RECEIVED FROM LAB. PT'S HGB IS 7. CHARGE NURSE AND MD INFORMED. NO NEW ORDER AT THIS TIME.
[2022-03-09 08:00] VITALS: BP 138/76
[2022-03-09] MEDS: ZINC SULFATE 220 MG CAPSULE GT SCH (09:23)
[2022-03-09] MEDS: PANTOPRAZOLE 40 MG/PACK PACK NG SCH ×2 (09:23→21:02)
[2022-03-09] MEDS: BUMETANIDE (1 MG) 1 MG TABLET GT SCH (09:23)
[2022-03-09] MEDS: LINEZOLID 600 MG TABLET PO SCH ×2 (09:23→21:02)
[2022-03-09] MEDS: THERAHONEY GEL 1.5 OZ TUBE TP SCH (09:24)
[2022-03-09] MEDS: Z GUARD REMEDY 4 OZ OINT TP SCH (09:24)
[2022-03-09] MEDS: VITAMINS A AND D 56.7 GM TUBE TP SCH (09:25)
[2022-03-09] MEDS: Potassium Chloride 20 MEQ in IV D5W 1,000 ML IV SCH (11:43)
[2022-03-09 12:00] VITALS: BP 140/76
[2022-03-09] MEDS ORDERED: MERO500V23 IV (13:04)
[2022-03-09] MEDS ORDERED: Linezolid PO (13:04)
[2022-03-09] MEDS ORDERED: Ipratropium Bromide IH (13:04)
[2022-03-09] MEDS ORDERED: ALBU2.5V13 NEB (13:04)
[2022-03-09 16:00] VITALS: BP 140/76
[2022-03-09] MEDS: ASCORBIC ACID 500 MG TABLET GT SCH (18:09)
[2022-03-09] MEDS: LORAZEPAM INJ 2 MG/ML VIAL IV PRN (18:55)
--- NOTE | 2022-03-09 18:59 | NUR ---
REVIEWED DISCHARGE INSTRUCTION WITH FACILITY RN. PT DISCHARGED VIA [facility] WITH PRESCRIPTION, INSTRUCTIONS. TELEMONITOR DISCONTINUED. MIDLINE KEPT IN PLACE REQUESTED. PT DISCHRGED TO [facility] FOR CONTINUITY OF CARE. Addendum: 03/09/22 at 1932 by MARIANA MCBRIDE RN WHILE PT IS ON [facility] PT SHOWED SIGNS OF SOB AND BECAME TACHYCARDIC. CHARGE NURSE AND MD INFORMED. PAIN MEDICATION TYLENOL 650MG AND CARDIZEM 60 MG ADMINISTERED ORDERED. WILL STAY. WILL ENDORSE TO [employer] OPERATOR NURSE FOR CONTINUITY OF CARE.
[2022-03-09] MEDS: ACETAMINOPHEN 650 MG/20.3 ML UDC GT PRN (19:27)
[2022-03-09 20:00] VITALS: BP 126/78
--- NOTE | 2022-03-09 20:00 | NUR ---
CHARGE NURSE INFORMED MD RE: PATIENT WILL NOT BE D/C DUE TO TACHYCARDIA HR 135. AND PATIENT WILL BE PICKED UP BY AMBULANCE TOMORROW AM AT 0800. PER CHARGE NURSE STATED THAT OKAY PATIENT TO STAY TONIGHT.
[2022-03-09] MEDS ORDERED: IV D5W 1,000 ML IV SCH (23:30)
[2022-03-10] VITALS: BP 121/73
--- NOTE | 2022-03-10 | NUR ---
RIGHT SIDE ABDOMEN DRAIN DRESSING CHANGED.
[2022-03-10] MEDS: MEROPENEM 500 MG in IV NS 0.9% 50 ML IV SCH (00:14)
[2022-03-10] MEDS: INSULIN REGULAR, HUMAN 100 UNIT/ML 3 ML VIAL SQ PRN ×2 (00:36→05:42)
--- NOTE | 2022-03-10 00:37 | NUR ---
blood sugar checked=82, no insulin given.
[2022-03-10 04:00] VITALS: BP 116/76
[2022-03-10] MEDS: Z GUARD REMEDY 4 OZ OINT TP PRN (04:30)
[2022-03-10] MEDS: NEPRO 1,000 ML BOTTLE GT PRN (04:31)
[2022-03-10] MEDS: GABAPENTIN 100 MG CAPSULE PO SCH (04:43)
[2022-03-10] MEDS: LANTHANUM CARBONATE 500 MG TAB.CHEW GT SCH (04:43)
[2022-03-10] MEDS: ACETAMINOPHEN 650 MG/20.3 ML UDC GT PRN (04:43)
[2022-03-10 04:44] VITALS: BP 116/76
[2022-03-10] MEDS: DILTIAZEM HCL 30 MG TABLET GT SCH (04:44)
[2022-03-10] MEDS: LORAZEPAM INJ 2 MG/ML VIAL IV PRN (05:40)
[2022-03-10] MEDS: BLOOD SUGAR DIAGNOSTIC 1 EACH STRIP IN SCH ×2 (05:42)
--- NOTE | 2022-03-10 05:43 | NUR ---
blood sugar checked= 104, no insulin given.
--- NOTE | 2022-03-10 07:30 | NUR ---
RN OPENING NOTE RECEIVED PT RESTING IN BED, OBTUNDED, NON-VERBAL, TRACH IN PLACE, SHILEY #6,WITH VENT SETTINGS AC 18, TV 500, FIO2 30%, PEEP 5; TOLERATING WELL WITH O2 SAT OF 100%; NO S/S OF RESP DISTRESS. TELE MONITOR READING ST 107. SOFT RESTRAINTS IN LEFT WRIST WITH MITTEN, NO CIRCULATION ISSUES. CHOLECYSTOSTOMY TUBE NOTED, DRAINING SEROSANGUINEOUS FLUID. G TUBE INTACT AND PATENT RUNNING NEPHRO AT 40ML/HR. . HOB ELEVATED. KNUTSON INTACT AND PATENT DRAINING CLEAR AND YELLOW URINE. HILDA MIDLINE INTACT AND PATENT WITH ORDERED IV FLUIDS. WILL CONT. TO MONITOR THROUGHOUT SHIFT.
== END 2022-03-10 08:19 | DRG 710 ==
LOC: ER 10:47 → TELE1 14:39 → TELE-TD 20:40 → TELE1 02-18 12:06 → TELE-TD 03-03 19:53 → TELE1 03-05 09:10
PROVIDERS: ADMIT Registered Nurse; ATTEND Nurse Practitioner Acute Care
PROC: 5A1955Z Respiratory Ventilation, Greater than 96 Consecutive Hours (ICD-10-PCS; principal; 2022-02-16)
PROC: 05H933Z Insertion of Infusion Device into Right Brachial Vein, Percutaneous Approach (ICD-10-PCS; 2022-02-19)
PROC: 30233N1 Transfusion of Nonautologous Red Blood Cells into Peripheral Vein, Percutaneous Approach (ICD-10-PCS; 2022-02-26)
PROC: 0QB10ZZ Excision of Sacrum, Open Approach (ICD-10-PCS; 2022-03-04)
PROC: 0JB90ZZ Excision of Buttock Subcutaneous Tissue and Fascia, Open Approach (ICD-10-PCS; 2022-03-04)
PROC: 0F9430Z Drainage of Gallbladder with Drainage Device, Percutaneous Approach (ICD-10-PCS; 2022-03-08)
PROC: BF121ZZ Fluoroscopy of Gallbladder using Low Osmolar Contrast (ICD-10-PCS; 2022-03-08)
PROC: 0QB10ZZ Excision of Sacrum, Open Approach (ICD-10-PCS; 2022-03-08)
PROC: 0JB90ZZ Excision of Buttock Subcutaneous Tissue and Fascia, Open Approach (ICD-10-PCS; 2022-03-08)
DX: A41.9 Sepsis, unspecified organism (principal); J96.21 Acute and chronic respiratory failure with hypoxia; N17.0 Acute kidney failure with tubular necrosis; G92.9 Unspecified toxic encephalopathy; J95.851 Ventilator associated pneumonia; L89.154 Pressure ulcer of sacral region, stage 4; L89.314 Pressure ulcer of right buttock, stage 4; R53.2 Functional quadriplegia; L89.896 Pressure-induced deep tissue damage of other site; I13.0 Hypertensive heart and chronic kidney disease with heart failure and stage 1 through stage 4 chronic kidney disease, or unspecified chronic kidney disease; E87.0 Hyperosmolality and hypernatremia; I50.9 Heart failure, unspecified; D63.1 Anemia in chronic kidney disease; E11.36 Type 2 diabetes mellitus with diabetic cataract; I69.351 Hemiplegia and hemiparesis following cerebral infarction affecting right dominant side; Z99.11 Dependence on respirator [ventilator] status; E11.22 Type 2 diabetes mellitus with diabetic chronic kidney disease; G40.909 Epilepsy, unspecified, not intractable, without status epilepticus; B96.1 Klebsiella pneumoniae [K. pneumoniae] as the cause of diseases classified elsewhere; Z93.0 Tracheostomy status; Z93.1 Gastrostomy status; R13.10 Dysphagia, unspecified; Z20.822 Contact with and (suspected) exposure to COVID-19; N18.9 Chronic kidney disease, unspecified; M62.49 Contracture of muscle, multiple sites; M62.50 Muscle wasting and atrophy, not elsewhere classified, unspecified site; F41.9 Anxiety disorder, unspecified; Z79.4 Long term (current) use of insulin; Z79.899 Other long term (current) drug therapy; Y95 Nosocomial condition; Z16.24 Resistance to multiple antibiotics; Z16.21 Resistance to vancomycin; K22.70 Barrett's esophagus without dysplasia; Z98.890 Other specified postprocedural states; E88.09 Other disorders of plasma-protein metabolism, not elsewhere classified; E87.1 Hypo-osmolality and hyponatremia; D68.59 Other primary thrombophilia; Z74.09 Other reduced mobility; B96.5 Pseudomonas (aeruginosa) (mallei) (pseudomallei) as the cause of diseases classified elsewhere; B95.2 Enterococcus as the cause of diseases classified elsewhere; M46.28 Osteomyelitis of vertebra, sacral and sacrococcygeal region; E11.69 Type 2 diabetes mellitus with other specified complication; B37.49 Other urogenital candidiasis; E87.6 Hypokalemia; E11.42 Type 2 diabetes mellitus with diabetic polyneuropathy; L85.3 Xerosis cutis; N28.89 Other specified disorders of kidney and ureter; N20.2 Calculus of kidney with calculus of ureter; Z90.49 Acquired absence of other specified parts of digestive tract; D72.821 Monocytosis (symptomatic); Y84.8 Other medical procedures as the cause of abnormal reaction of the patient, or of later complication, without mention of misadventure at the time of the procedure; Y92.129 Unspecified place in nursing home as the place of occurrence of the external cause; N13.6 Pyonephrosis; K80.00 Calculus of gallbladder with acute cholecystitis without obstruction; J90 Pleural effusion, not elsewhere classified; D68.9 Coagulation defect, unspecified; R74.01 Elevation of levels of liver transaminase levels; D17.71 Benign lipomatous neoplasm of kidney; J18.9 Pneumonia, unspecified organism
CPT/HCPCS: 31720; 36410; 36415; 36600; 71045-TC; 71250-TC; 75989; 75989-TC; 76705-TC; 76770-TC; 78226; 80048-TC; 80053-TC; 80076-TC; 80150; 80202-TC; 81001; 82272-TC; 82533; 82570-TC; 82607-TC; 82728-TC; 82784; 82803-TC; 82962-TC; 83540-TC; 83605-TC; 83615-TC; 83735-TC; 83880; 84100-TC; 84155; 84165; 84300-TC; 84443-TC; 84484-TC; 85025-TC; 85396; 85730-TC; 86334; 86850-TC; 87040-TC; 87070-TC; 87081-TC; 87086-TC; 87186-TC; 94002-TC; 94003-TC; 94760-TC; 94762-TC; 94799-TC; 99082-TC; A4623; A6253; A6403; A7526; A9537; C9113; C9803; G0378; J0278; J0692; J1100; J1644; J1815; J2060; J2185; J2430; J2543; J3370; J3475; J3480; J3490; J7030; J7040; J7050; J7060; J7070; P9016; Q9967; U0003

== ENCOUNTER 2022-03-26 17:35 | Inpatient (IN) | payer MEDICAID ==
[~2022-03-26] VITALS: Ht 162.6 cm; Wt 77.1 kg
[~2022-03-26 17:35] MED LIST changes: +ALBU2.5V13 NEB; -ALBU6.7H9 IH; -AMIN30LI2 GT; -AMLO-213 GT; +BUME1TAB8 GT; -CHLO473M5 MM; -CHOL400T11 GT; +DILT30TA14 GT; -DIPH25CA51 GT; -ENOX40DI SQ; -EPOE1VIA7 SQ; +GABA250S2 GT; -GEMF600T90 GT; -HYDR-4075 GT; -INSU100I26 SQ; +INSU100V39 SQ; +Ipratropium Bromide IH; +LANT10005 GT; -LEVO250T59 GT; +Linezolid PO; +MERO500V23 IV; -MULT-447 GT; +MULT1TAB70 GT; -OMEG1CAP GT; -OMEP20CA15 GT; +PANT40TA2 GT; -POTA20PA3 GT; -SACC250C GT; -TERA1CAP4 GT; -THIA100T13 GT; -TRAM50TA2 GT; +ZINC50TA69 GT
--- NOTE | 2022-03-26 18:17 | NUR ---
RT AT BEDSIDE FOR VENT SETUP. TV 500, AC 18, PEEP 5, FIO2 30%, SHILEY 6.
--- NOTE | 2022-03-26 18:18 | NUR ---
PT NOTED W/ KNUTSON CATH, DRAINING URINE OF YELLOW COLOR. G-TUBE IN PLACE, NO RESIDUAL NOTED.
--- NOTE | 2022-03-26 18:19 | NUR ---
MAILE MIDLINE #[address] SENIOR ENVIRONMENTAL TECHNICIAN
[2022-03-26] MEDS ORDERED: MERO500P IV (18:28)
[2022-03-26] MEDS ORDERED: ALBU18HF2 IH (18:28)
--- NOTE | 2022-03-26 18:39 | NUR ---
COVID SWAB COLLECTED AND SENT TO LAB
--- NOTE | 2022-03-26 18:41 | NUR ---
BUCKRAM SEWER AT BEDSIDE FOR XRAY
[2022-03-26] MEDS ORDERED: IV NS 0.9% 1,000 ML BAG IV ONE (19:00)
--- NOTE | 2022-03-26 19:48 | NUR ---
RECEIVED PT IN ROOM 10. PT IS AAOX0, ON VENTILATOR. GTUBE AND KNUTSON CATH NOTED. CONNECTED TO MONITOR. WILL CONTINUE TO MONITOR.
[2022-03-26 19:53] LABS: BASOPHILS # (AUTO) 0.1 K/uL (0.0-0.2); BASOPHILS % (AUTO) 0.5 % (0.0-2.0); EOSINOPHILS % (AUTO) 2.7 % (0.0-6.0); LYMPHOCYTES % (AUTO) 6.7 % (20.0-44.0); MEAN CORPUSCULAR HGB CONC 34 g/dl (31.0-36.0); MEAN CORPUSCULAR VOLUME 92 fL (80-96); MONOCYTES # (AUTO) 3.1 K/uL (0.1-1.30); MONOCYTES % (AUTO) 10.3 % (2.0-12.0); NEUTROPHILS # (AUTO) 23.7 K/uL (1.8-8.9); NEUTROPHILS % (AUTO) 79.8 % (43.0-81.0); PLATELET COUNT (AUTO) 304 K/uL (150-450); WHITE BLOOD COUNT (AUTO) 29.7 K/uL (4.3-11.0)
[2022-03-26 19:56] LABS: BILIRUBIN,URINE NEGATIVE (NEGATIVE); COLOR,URINE YELLOW (YELLOW); LEUKOCYTE ESTERASE ,URINE LARGE (NEGATIVE); NITRITE, URINE NEGATIVE (NEGATIVE); PROTEIN,URINE 30 mg/dl (NEGATIVE); UGLUCOSE NEGATIVE (NEGATIVE); UROBILINOGEN,URINE 0.2 EU/dL (0.2)
[2022-03-26 19:58] LABS: CALCIUM, SERUM 9.1 mg/dL (8.5-10.1); CARBON DIOXIDE 22 mmol/L (21-32); CHLORIDE 103 mmol/L (98-107); CREATININE 2.1 mg/dL (0.6-1.3); GLUCOSE 107 mg/dL (74-106); POTASSIUM 3.1 mmol/L (3.5-5.1); SODIUM SERUM 138 mmol/L (136-145); UREA NITROGEN, BLOOD 66 mg/dL (7-18)
[2022-03-26 20:01] LABS: RED BLOOD CELL COUNT(AUTO) 1.75 MIL/uL (4.5-6.0)
[2022-03-26 20:02] LABS: HEMATOCRIT 16 % (39-51); HEMOGLOBIN 5.4 g/dL (13.5-17.5)
[2022-03-26 20:09] LABS: ALANINE AMINOTRANSFERASE 16 U/L (12-78); ALKALINE PHOSPHATASE 361 U/L (46-116); ASPARTATE AMINOTRANSFERASE 16 U/L (15-37); BILIRUBIN,DIRECT 0.3 mg/dL (0.0-0.2); BILIRUBIN,TOTAL 0.5 mg/dL (0.2-1.0); TOTAL PROTEIN, SERUM 6.7 g/dL (6.4-8.2)
[2022-03-26 20:11] LABS: BACTERIA,URINE Rare /HPF (None Seen); SQUAMOUS EPITHELIAL CELL,UR Few /HPF (None Seen)
[2022-03-26 20:14] LABS: ALBUMIN 1.3 g/dL (3.4-5.0)
[2022-03-26] MEDS ORDERED: VANCOMYCIN 1 GM in IV D5W 250 ML IV ONE (20:30)
[2022-03-26] MEDS ORDERED: VANCOMYCIN 1 GM VIAL ONE (20:33)
--- NOTE | 2022-03-26 20:43 | NUR ---
PT BEING TRANSPORTED TO CT VIA GURNEY WITH RT
[2022-03-26] MEDS ORDERED: ALBUTEROL FS 2.5 MG/0.5 ML VIAL.NEB NEB PRN (21:00)
[2022-03-26] MEDS ORDERED: Z GUARD REMEDY 4 OZ OINT TP PRN (21:00)
[2022-03-26] MEDS ORDERED: MAGNESIUM HYDROXIDE 30 ML UDC GT PRN (21:00)
[2022-03-26] MEDS ORDERED: NEPRO VAN 237 ML CAN GT SCH (21:00)
[2022-03-26] MEDS ORDERED: NA PHOS,M-B/NA PHOS,DI-BA 1 EA ENEMA RC PRN (21:00)
[2022-03-26] MEDS ORDERED: BISACODYL SUPP (10 MG) 10 MG/SUPP.RECT SUPP.RECT RC PRN (21:00)
[2022-03-26] MEDS ORDERED: LANTHANUM CARBONATE 1,000 MG TAB.CHEW GT SCH (21:00)
--- NOTE | 2022-03-26 21:30 | NUR ---
VERBAL CONSENT OBTAINED FOR BLOOD TRANSFUSION FROM SISTER RADHIKA PERRY (SISTER) OVER THE PHONE. WITNESSED BY TWO RN.
[2022-03-26 21:32] LABS: BAND % (MANUAL) 4 % (0.0-5.0); BASOPHILS % (MANUAL) 0 % (0.0-2.0); EOSINOPHILS % (MANUAL) 1 % (0-4); LYMPHOCYTES % (MANUAL) 8 % (16-48); MONOCYTES % (MANUAL) 12 % (0-11.0); NEUTROPHILS % (MANUAL) 75 (42-76)
[2022-03-26] MEDS ORDERED: MEROPENEM 500 MG VIAL IV ONE (22:47)
[2022-03-26] MEDS ORDERED: ASCORBIC ACID 500 MG TABLET ONE (22:47)
[2022-03-26] MEDS ORDERED: DILTIAZEM HCL 30 MG TABLET ONE (22:47)
[2022-03-26] MEDS ORDERED: BUMETANIDE (1 MG) 1 MG TABLET ONE (22:47)
[2022-03-26] MEDS ORDERED: PANTOPRAZOLE 40 MG VIAL ONE (22:47)
[2022-03-26] MEDS ORDERED: METOPROLOL TARTRATE 50 MG TABLET ONE (22:48)
[2022-03-26] MEDS: DILTIAZEM HCL 30 MG TABLET GT SCH (22:52)
[2022-03-26] MEDS: METOPROLOL TARTRATE 25 MG TABLET GT SCH (22:52)
[2022-03-26] MEDS: PANTOPRAZOLE 40 MG VIAL IV SCH (22:55)
[2022-03-26] MEDS: MEROPENEM 500 MG in IV NS 0.9% 50 ML IV SCH (22:55)
[2022-03-26] MEDS: BLOOD SUGAR DIAGNOSTIC 1 EACH STRIP IN SCH (23:09)
--- NOTE | 2022-03-26 23:09 | NUR ---
POC BG 99. NO INSULIN ADMIN PER SLIDING SCALE.
--- NOTE | 2022-03-26 23:35 | NUR ---
BLOOD TRANSFUSION INITATED AT 75ML/HR. PRETRANSFUSION V/S WNL. UNIT VERIFIED BY TWO RN. SIGNED CONSENT IN PT CHART
--- NOTE | 2022-03-26 23:50 | NUR ---
PT TOLERATING TRANSFUSION WELL. NO S/S OF TRANSFUSION REACTION. INFUSION RATE INCREASED TO 200ML/HR.
--- NOTE | 2022-03-27 01:34 | NUR ---
BLOOD TRANSFUSION COMPLETED AND RECIEVED ENTIRE UNIT WITHOUT INCIDENT. V/S REMAINED WNL.
--- NOTE | 2022-03-27 01:36 | NUR ---
LAB AT BEDSIDE FOR REPEAT H&H
[2022-03-27 01:48] LABS: HEMOGLOBIN 9.4 g/dL (13.5-17.5)
[2022-03-27] MEDS ORDERED: MORPHINE SULFATE INJ 2 MG/ML DISP.SYRIN ONE ×2 (04:02→14:27)
[2022-03-27] MEDS: MORPHINE SULFATE INJ 2 MG/ML DISP.SYRIN IV PRN ×2 (04:06→14:28)
[2022-03-27 04:57] LABS: BASOPHILS # (AUTO) 0.1 K/uL (0.0-0.2); BASOPHILS % (AUTO) 0.4 % (0.0-2.0); EOSINOPHILS % (AUTO) 2.8 % (0.0-6.0); HEMATOCRIT 26 % (39-51); HEMOGLOBIN 8.7 g/dL (13.5-17.5); LYMPHOCYTES # (AUTO) 2.4 K/uL (0.8-4.8); LYMPHOCYTES % (AUTO) 6.9 % (20.0-44.0); MEAN CORPUSCULAR HGB CONC 33 g/dl (31.0-36.0); MEAN CORPUSCULAR VOLUME 91 fL (80-96); MONOCYTES # (AUTO) 2.9 K/uL (0.1-1.30); MONOCYTES % (AUTO) 8.1 % (2.0-12.0); NEUTROPHILS % (AUTO) 81.8 % (43.0-81.0); PLATELET COUNT (AUTO) 368 K/uL (150-450)
[2022-03-27] MEDS: MEROPENEM 500 MG in IV NS 0.9% 50 ML IV SCH ×3 (05:00→22:56)
[2022-03-27 05:07] LABS: WHITE BLOOD COUNT (AUTO) 35.5 K/uL (4.3-11.0)
--- NOTE | 2022-03-27 05:07 | NUR ---
WBC 35.5
[2022-03-27 05:37] LABS: CALCIUM, SERUM 9.2 mg/dL (8.5-10.1); MAGNESIUM 2.3 mg/dL (1.8-2.4); PHOSPHORUS 3.8 mg/dL (2.5-4.9); POTASSIUM 3.6 mmol/L (3.5-5.1)
--- NOTE | 2022-03-27 05:40 | NUR ---
RT PT RECVD ON CURRENT AC VENT SETTINGS AND RICARDA WELL. SHILEY 6 TRACH PATENT AND SECURED. SUCTION Q2/PRN, NO SOB OR RESPIRATORY DISTRESS NOTED AT THIS TIME. TRACH CARE DONE AT THIS TIME. SPO2 >92% MAINTAINED THROUGHOUT SHIFT. TRANSPORTED PT TO CT USING ACLS PROTOCOL, PT PLACED BACK ON VENT WITHOUT INCIDENT. VENT IS PLUGGED INTO RED OUTLET WITH ALARMS ON AND AUDIBLE. SPARE TRACH AND AMBU AT BEDSIDE.
[2022-03-27] MEDS: BLOOD SUGAR DIAGNOSTIC 1 EACH STRIP IN SCH ×4 (06:14→18:59)
--- NOTE | 2022-03-27 06:14 | NUR ---
POC BG 75. NO INSULIN ADMIN PER SLIDING SCALE.
[2022-03-27 06:20] LABS: BAND % (MANUAL) 4 % (0.0-5.0); BASOPHILS % (MANUAL) 0 % (0.0-2.0); EOSINOPHILS % (MANUAL) 2 % (0-4); LYMPHOCYTES % (MANUAL) 7 % (16-48); MONOCYTES % (MANUAL) 5 % (0-11.0); NEUTROPHILS % (MANUAL) 82 (42-76)
[2022-03-27] MEDS ORDERED: LINEZOLID 600 MG TABLET PO SCH (07:00)
[2022-03-27] MEDS ORDERED: DILTIAZEM HCL 30 MG TABLET ONE ×2 (09:38→13:19)
[2022-03-27] MEDS ORDERED: MULTIVIT W/MINERALS 1 TAB TABLET ONE (09:38)
[2022-03-27] MEDS ORDERED: BUMETANIDE (1 MG) 1 MG TABLET ONE (09:38)
[2022-03-27] MEDS ORDERED: METOPROLOL TARTRATE 25 MG TABLET ONE (09:39)
[2022-03-27] MEDS ORDERED: PANTOPRAZOLE 40 MG VIAL ONE (09:40)
[2022-03-27] MEDS: MULTIVITAMINS,THERAGRAN 1 UDTAB TABLET GT SCH (09:40)
[2022-03-27] MEDS: BUMETANIDE (1 MG) 1 MG TABLET GT SCH (09:40)
[2022-03-27] MEDS: LINEZOLID 600 MG TABLET PO SCH ×2 (09:41→22:44)
[2022-03-27] MEDS: PANTOPRAZOLE 40 MG VIAL IV SCH ×2 (09:42→22:45)
[2022-03-27] MEDS: LANTHANUM CARBONATE 500 MG TAB.CHEW GT SCH ×3 (09:42→21:00)
[2022-03-27] MEDS: DILTIAZEM HCL 30 MG TABLET GT SCH ×3 (09:48→22:44)
[2022-03-27] MEDS: METOPROLOL TARTRATE 25 MG TABLET GT SCH ×2 (09:48→22:43)
--- NOTE | 2022-03-27 12:21 | NUR ---
BLOOD SUGAR IS 72.
[2022-03-27] MEDS ORDERED: ACETAMINOPHEN 325 MG TABLET ONE (15:12)
[2022-03-27] MEDS ORDERED: ASCORBIC ACID 500 MG TABLET ONE (18:08)
[2022-03-27] MEDS: ASCORBIC ACID 500 MG TABLET GT SCH (18:09)
--- NOTE | 2022-03-27 18:44 | NUR ---
GOING TO TELE 115.1 AFTER SHIFT
--- NOTE | 2022-03-27 19:32 | NUR ---
REPORT GIVEN TO MARIANA LOU RN FOR HAMILTON
--- NOTE | 2022-03-27 19:51 | NUR ---
transferred to 114 under ACLS
--- NOTE | 2022-03-27 19:57 | NUR ---
RT NOTE PT RECEIVED TRACHED ON MECHANICAL VENTILATION. SHILEY [address] PT TRANSFERRED TO [facility] VIA AMBU BAG. NO RESPIRATORY DISTRESS NOTED. SUCTION DONE, TRACH SECURED AND PATENT. VENT ALARMS ON AND AUDIBLE. PT CURRENT SETTINGS AC 16, 400, 30%, +5. WILL CONTINUE TO MONITOR CLOSELY. Addendum: 03/27/22 at 2010 by VÍCTOR LEROY RT Amended: Links added.
--- NOTE | 2022-03-27 19:57 | NUR ---
PT TRANSFERRED TO [facility] 115 VIA ACLS PROTOCOL WITH RT
--- NOTE | 2022-03-27 20:15 | NUR ---
ADMITTED A 66 Y/O MALE. NON VERBAL. WITH ADMITTING DX OF SEPSIS AND ACUTE ANEMIA. PTS IS COVID NEGATIVE ON 03/27/22. ADMISSION ROUTINE CARE RENDERED , BODY CHECKED. PICTURES OF WOUNDS TAKEN. VENT PT SATING AT 100%. LT UPPER ARM ML INTACT AND PATENT. SAFETY MEASURES IN PLACE. BED LOCKED AND IN LOWEST POSITION, CALL LIGHT WITHIN REACH. BED ALARM ON, SIDE RAILS UP X2,WILL CONTINUE PLAN OF CARE.
[2022-03-27 21:00] VITALS: BP 140/83
[2022-03-27] MEDS ORDERED: MEROPENEM 500 MG VIAL IV ONE (22:53)
[2022-03-28] MEDS: DEXTROSE 50%-WATER 50 ML DISP.SYRIN IV PRN (00:01)
[2022-03-28] MEDS: BLOOD SUGAR DIAGNOSTIC 1 EACH STRIP IN SCH ×5 (00:02→23:57)
--- NOTE | 2022-03-28 00:25 | NUR ---
SUPERVISOR PROPELLANT CHARGE LOADING NOTE VERIFIED WITH ARYA REGARDING PT TO BE NPO OR NOT, PER ARYA CONTINUE TUBE FEEDING AND NO NPO. ALSO ARYA GAVE A ORDER OF RESTRAINTS ON LT WRIST SOFT RESTRAINTS. ORDER NOTED AND CARRIED OUT. PT WAS TRYING TO GRAB TRACH TUBE. CONTINUE TO MONITOR.
[2022-03-28 01:00] VITALS: BP 138/83
[2022-03-28] MEDS: INSULIN REGULAR, HUMAN 100 UNIT/ML 3 ML VIAL SQ PRN (01:59)
[2022-03-28 05:00] VITALS: BP 135/83
[2022-03-28] MEDS: LANTHANUM CARBONATE 500 MG TAB.CHEW GT SCH ×3 (05:00→21:55)
[2022-03-28] MEDS: DILTIAZEM HCL 30 MG TABLET GT SCH ×3 (05:08→21:53)
[2022-03-28 05:19] LABS: ABG BASE EXCESS -4.7 mmol/L; ABG OXYGEN SATURATION 97.5 % (92.0-98.5); ABG PCO2 30.2 mmHg (35.0-45.0); ABG PH 7.415 (7.350-7.450); AaDO2 74.4 mmHg; COHb 0.2 % (0.5-1.5); MetHb 0.2 % (0.0-1.5); O2Hb 97.1 % (94.0-97.0); PEEP,BG 5 cm H2O; SITE, ABG Left Radial; VENT MODE, BG AC 16 400 30% +5; VT, ABG 400 mL
[2022-03-28] MEDS: HYDROCODONE/APAP 5/325MG TABLET GT PRN ×2 (05:19→08:17)
[2022-03-28] MEDS: ACETAMINOPHEN 325 MG TABLET MC PRN (05:19)
[2022-03-28] MEDS: MORPHINE SULFATE INJ 2 MG/ML DISP.SYRIN IV PRN (06:22)
--- NOTE | 2022-03-28 06:43 | NUR ---
PATIENT IN BED, ASLEEP. ASLEEP BUT EASILY AROUSES TO VOICE AND SOUND. NON VERBAL. NOT IN DISTRESS. VENT PT SATING AT 100%. LT UPPER ARM ML INTACT AND PATENT. FC DRAINING CLEAR YELLOW URINE, NEPHROSTOMY TUBE PATENT AND INTACT. WOUND CARE PERFORMED. SAFETY MEASURES IN PLACE. BED LOCKED AND IN LOWEST POSITION, CALL LIGHT WITHIN REACH. BED ALARM ON, SIDE RAILS UP X2, WILL ENDORSE TO NEXT NURSE ON DUTY FOR CONTINUITY OF CARE.
[2022-03-28 06:51] LABS: BASOPHILS # (AUTO) 0.2 K/uL (0.0-0.2); BASOPHILS % (AUTO) 0.7 % (0.0-2.0); EOSINOPHILS % (AUTO) 3.4 % (0.0-6.0); HEMATOCRIT 27 % (39-51); HEMOGLOBIN 8.6 g/dL (13.5-17.5); LYMPHOCYTES # (AUTO) 2.1 K/uL (0.8-4.8); LYMPHOCYTES % (AUTO) 6.5 % (20.0-44.0); MEAN CORPUSCULAR HGB CONC 32 g/dl (31.0-36.0); MEAN CORPUSCULAR VOLUME 94 fL (80-96); MONOCYTES # (AUTO) 1.9 K/uL (0.1-1.30); MONOCYTES % (AUTO) 5.9 % (2.0-12.0); NEUTROPHILS # (AUTO) 27.2 K/uL (1.8-8.9); NEUTROPHILS % (AUTO) 83.5 % (43.0-81.0); PLATELET COUNT (AUTO) 375 K/uL (150-450); RED BLOOD CELL COUNT(AUTO) 2.87 MIL/uL (4.5-6.0)
[2022-03-28 07:02] LABS: CREATININE 2.3 mg/dL (0.6-1.3); POTASSIUM 3.6 mmol/L (3.5-5.1)
[2022-03-28 08:02] LABS: WHITE BLOOD COUNT (AUTO) 32.5 K/uL (4.3-11.0)
[2022-03-28] MEDS: MULTIVITAMINS,THERAGRAN 1 UDTAB TABLET GT SCH (08:15)
[2022-03-28] MEDS: LINEZOLID 600 MG TABLET PO SCH ×2 (08:16→21:53)
[2022-03-28] MEDS: BUMETANIDE (1 MG) 1 MG TABLET GT SCH (08:16)
[2022-03-28] MEDS: METOPROLOL TARTRATE 25 MG TABLET GT SCH ×2 (08:16→21:54)
--- NOTE | 2022-03-28 08:41 | NUR ---
RT RECEIVED PT ON AC 16 400 30% +5. PT TOLERATES CURRENT VENT SETTINGS. SPO2 91% UPON INITIAL ASSESSMENT. TRACH IS SECURED AND PATENT. NO SOB OR RESP DISTRESS NOTED. VENT IS PLUGGED INTO RED OUTLET. ALARMS ARE ON AND AUDIBLE. SPARE TRACH AND AMBU BAG ARE BEDSIDE.
[2022-03-28 09:00] VITALS: BP 133/73
--- NOTE | 2022-03-28 09:24 | NUR ---
WOUND CARE CONSULT: PT PRESENTS WITH MULTIPLE SKIN ISSUES AND WOUNDS INCLUDING SCARRING TO LEFT ELBOW, LEFT HIP AREA AND TO BUTTOCKS AND BACK, DRY DISCOLORATIONS TO FEET, RT LATERAL KNEE DRY SCAB, STAGE 4 ULCERS TO SACRUM AND RT HIP, ALL PRESENT ON ADMISSION. DR ANDERSON NOTIFIED OF SURGICAL CONSULT REQUEST. Addendum: 03/28/22 at 0940 by BOB MOHAMUD WNDNU DISCUSSED SKIN PROTECTION WITH NURSING STAFF. [facility] L[facility] AIRLOSS BED TO BE PLACED. IN AGREEMENT WITH PLAN OF CARE.
[2022-03-28] MEDS: PANTOPRAZOLE 40 MG VIAL IV SCH ×2 (09:42→21:53)
[2022-03-28] MEDS: MEROPENEM 500 MG in IV NS 0.9% 50 ML IV SCH ×2 (10:13→21:54)
--- NOTE | 2022-03-28 10:14 | NUR ---
RN NOTE MEROPENEM WAS ADMINISTERED LATE BECAUSE THE PHARMACY DID NOT DELIVER IT. I CALLED THEM AND PICKED UP THE MEDICATION.
[2022-03-28 10:48] LABS: BAND % (MANUAL) 4 % (0.0-5.0); EOSINOPHILS % (MANUAL) 3 % (0-4); LYMPHOCYTES % (MANUAL) 4 % (16-48); MONOCYTES % (MANUAL) 8 % (0-11.0); NEUTROPHILS % (MANUAL) 81 (42-76)
[2022-03-28 13:00] VITALS: BP 123/71
[2022-03-28] MEDS ORDERED: PERMETHRIN 5% CRM 60 GM TUBE TP ONE (13:30)
[2022-03-28] MEDS ORDERED: IVERMECTIN 3 MG TABLET PO ONE (13:30)
--- NOTE | 2022-03-28 13:46 | NUR ---
RN/NOTE 1300 MEDICATION WAS NOT GIVEN BECAUSE THER PHARMACY DID NOT DELIVER IT. I CALLED TWICE THEY SAID IT IS BEING DELIVERED.
[2022-03-28 17:00] VITALS: BP 140/72
[2022-03-28] MEDS: ASCORBIC ACID 500 MG TABLET GT SCH (17:14)
--- NOTE | 2022-03-28 18:22 | NUR ---
PATIENT VOMITED AFTER SUCTION. PATIENT WERE SUCTION THROUGH TRACH AND MOUTH AFTER VOMITING. TRACH CARE DONE AND TRACH TIE REPLACED. PATIENT RN WERE NOTIFIED. Addendum: 03/28/22 at 1824 by CHAYITO NICHOLAS RT Amended: Links added.
--- NOTE | 2022-03-28 18:52 | NUR ---
RN/NOTE REPORT GIVEN TO FELT HAT INSPECTOR AND PACKER NURSER ALL CARE ENDORSED AND ALL QUESTIONS ANSWERED, PATIENT STABLE AND ALL SAFETY FALL PRECAUTIONS IN PLACE.
--- NOTE | 2022-03-28 20:23 | NUR ---
RN NOTE CLARIFIED ASSISTANT INFANT TEACHER ARYA ABOUT PATIENT DIET AFTER HE VOMITED A GOOD AMOUNT OF YELLOWISH OUTPUT AFTER SUCTIONING. HE THEN ORDERED TO HOLD FEEDING FOR 6 HRS AND CHECK FOR RESIDUAL. OKAY TO ADMINISTER DUE MEDS VIA GT. ORDER TAKEN AND CARRIED OUT. WILL CONT TO MONITOR.
[2022-03-28 21:00] VITALS: BP 147/86
[2022-03-29] VITALS (7 sets, daily range): BP systolic 117–151; BP diastolic 67–89
--- NOTE | 2022-03-29 | NUR ---
RN NOTE BS checked at 86 mg/dl. no coverage given per sliding scale.
[2022-03-29] MEDS: THERAHONEY GEL 1.5 OZ TUBE TP SCH ×2 (00:38→09:36)
--- NOTE | 2022-03-29 02:35 | NUR ---
RN NOTE RECHECKED PATIENT GTUBE FOR RESIDUAL. 0 RESIDUAL NOTED, RESUME GT FEEDING OF NEPHRO AT 40 ML/HR. WILL CONT TO MONITOR.
[2022-03-29] MEDS: LANTHANUM CARBONATE 500 MG TAB.CHEW GT SCH ×3 (04:20→20:28)
[2022-03-29] MEDS: DILTIAZEM HCL 30 MG TABLET GT SCH ×3 (04:31→20:33)
[2022-03-29] MEDS: BLOOD SUGAR DIAGNOSTIC 1 EACH STRIP IN SCH ×3 (05:24→18:21)
--- NOTE | 2022-03-29 05:25 | NUR ---
RN NOTE BS checked at 91 mg/dl. no coverage given per sliding scale.
[2022-03-29 06:15] LABS: BASOPHILS # (AUTO) 0.2 K/uL (0.0-0.2); BASOPHILS % (AUTO) 0.5 % (0.0-2.0); EOSINOPHILS % (AUTO) 2.6 % (0.0-6.0); HEMATOCRIT 25 % (39-51); HEMOGLOBIN 8.5 g/dL (13.5-17.5); LYMPHOCYTES # (AUTO) 2.3 K/uL (0.8-4.8); LYMPHOCYTES % (AUTO) 6.5 % (20.0-44.0); MEAN CORPUSCULAR HGB CONC 34 g/dl (31.0-36.0); MEAN CORPUSCULAR VOLUME 91 fL (80-96); MONOCYTES # (AUTO) 2.4 K/uL (0.1-1.30); MONOCYTES % (AUTO) 6.9 % (2.0-12.0); NEUTROPHILS # (AUTO) 29.4 K/uL (1.8-8.9); NEUTROPHILS % (AUTO) 83.5 % (43.0-81.0); PLATELET COUNT (AUTO) 350 K/uL (150-450); RED BLOOD CELL COUNT(AUTO) 2.77 MIL/uL (4.5-6.0)
--- NOTE | 2022-03-29 06:34 | NUR ---
DAS[facility] RN CLOSING NOTES PATIENT REMAINS IN BED ASLEEP BUT EASILY AROUSES TO TOUCH AND VERBAL STIMULI. A/O X0, NON VERBAL. ON MECHANICAL VENT SETTINGS, TOLERATING WELL, NO S/SX OF DISTRESS NOTED. WITH IV ACCESS ON MAILE ML INTACT AND PATENT RUNNING NS AT TKO. WITH FC DRAINING CLEAR YELLOW URINE, NEPHROSTOMY TUBE INTACT. WOUND CARE DONE. SAFETY MEASURES IN PLACE. ALL DUE MEDS GIVEN, KEPT DRY AND CLEAN, BED LOCKED AND IN LOWEST POSITION, CALL LIGHT WITHIN REACH. BED ALARM ON, SIDE RAILS UP X2, WILL ENDORSE TO AM SHIFT NURSE.
[2022-03-29 06:38] LABS: WHITE BLOOD COUNT (AUTO) 35.2 K/uL (4.3-11.0)
[2022-03-29 06:58] LABS: CREATININE 2.5 mg/dL (0.6-1.3); POTASSIUM 3.4 mmol/L (3.5-5.1)
--- NOTE | 2022-03-29 07:30 | NUR ---
RN OPENING NOTE PATIENT IS IN BED ASLEEP, NON VERBAL BUT OPENS EYES SPONTANEOUSLY. ON OXYGEN VIA TRACHEOSTOMY TO MECHANICAL VENTILATOR WITH THE FOLLOWING SETTINGS: AC MODE RR 16 FI02 30% TV 400 PEEP 5. BREATHING UNLABORED AND NOT IN ANY FORM OF DISTRESS. RIGHT NEPHROSTOMY TUBE INTACT, DRAINIG TO BROWN COLORED FLUID. G-TUBE INTACT AND INFUSING WITH NEPRO AT 40 ML/HR. LEFT UPPER ARM MIDLINE INTACT AND PATENT. PER EVALUATION ASSISTANT REPORT, PATIENT HAD EPISODE OF VOMITING. WILL KEEP PATIENT ON ASPIRATION PRECAUTION. ALL HOSPITAL SAFETY PRECAUTIONS ARE IN PLACE. BED IS LOCKED IN LOWEST POSITION, 3 SIDE RAILS UP, CALL LIGHT WITHIN REACH. WILL CONTINUE TO MONITOR THROUGHOUT SHIFT.
[2022-03-29 08:11] LABS: EOSINOPHILS % (MANUAL) 2 % (0-4); LYMPHOCYTES % (MANUAL) 5 % (16-48); MONOCYTES % (MANUAL) 6 % (0-11.0); NEUTROPHILS % (MANUAL) 87 (42-76)
[2022-03-29] MEDS: MEROPENEM 500 MG in IV NS 0.9% 50 ML IV SCH ×2 (09:35→20:27)
[2022-03-29] MEDS: BUMETANIDE (1 MG) 1 MG TABLET GT SCH (09:36)
[2022-03-29] MEDS: METOPROLOL TARTRATE 25 MG TABLET GT SCH ×2 (09:36→20:32)
[2022-03-29] MEDS: PANTOPRAZOLE 40 MG VIAL IV SCH ×2 (09:36→20:27)
[2022-03-29] MEDS: MULTIVITAMINS,THERAGRAN 1 UDTAB TABLET GT SCH (09:36)
[2022-03-29] MEDS: LINEZOLID 600 MG TABLET PO SCH ×2 (09:36→20:28)
[2022-03-29] MEDS ORDERED: POTASSIUM CL. PREMIX PERIPHER. 50 ML IV SCH (10:00)
--- NOTE | 2022-03-29 11:59 | NUR ---
RN NOTE BLOOD SUGAR 99 MG/DL, NO INSULIN GIVEN.
[2022-03-29] MEDS: NEPRO 1,000 ML BOTTLE GT PRN (12:48)
[2022-03-29] MEDS: ASCORBIC ACID 500 MG TABLET GT SCH (18:21)
--- NOTE | 2022-03-29 18:46 | NUR ---
RN CLOSING NOTE PATIENT REMAINED STABLE THROUGHOUT SHIFT. TOLERATES PRESCRIBED VENTILATOR SETTINGS SATTING AT 100%. G-TUBE, NEPHROSTOMY, AND KNUTSON CATHETER IN PLACE. IV LINE INTACT AND PATENT. BREATHING UNLABORED AND NOT IN ANY FORM OF DISTRESS. WOUND CARE, ORAL CARE, AND PEG CARE RENDERED. SUCTIONED ORAL AND TRACHEAL SECRETIONS NEEDED. TURNED AND REPOSITIONED FREQUENTLY. KEPT ON ASPIRATION PRECAUTION. WILL ENDORSE TO NUTRITIONALIST NURSE FOR CONTINUITY OF CARE.
--- NOTE | 2022-03-29 19:38 | NUR ---
EDITOR NEWS OPENING NOTES PATIENT REMAINS IN BED AWAKE, A/O X0, NON VERBAL. ON TRACHEOSTOMY CONNECTED TO MECHANICAL VENT SETTINGS, TOLERATING WELL, NO S/SX OF DISTRESS NOTED, HOB ELEVATED, WITH IV ACCESS ON MAILE ML INTACT AND PATENT RUNNING NS AT TKO. WITH FC DRAINING CLEAR YELLOW URINE, NEPHROSTOMY TUBE INTACT DRAINING TO DARK BROWN COLORED OUTPUT. SAFETY MEASURES IN PLACE. BED LOCKED AND IN LOWEST POSITION, CALL LIGHT WITHIN REACH. BED ALARM ON, SIDE RAILS UP X2, WILL CONTINUE TO MONITOR THROUGHOUT THE SHIFT.
[2022-03-29] MEDS: DAKINS QUARTER STRENGTH (0.125%) 480 ML BOTTLE TOP SCH (21:00)
[2022-03-29] MEDS ORDERED: SILVER NITRATE APPLICATOR 1 EA BOX TP SCH (21:00)
[2022-03-29] MEDS ORDERED: LIDOCAINE 1%-EPI 1:100,000 20 ML VIAL TP ONE (21:00)
[2022-03-30] VITALS: BP 147/82
[2022-03-30] MEDS: ACETAMINOPHEN 325 MG TABLET MC PRN ×2 (00:07→17:17)
[2022-03-30] MEDS: BLOOD SUGAR DIAGNOSTIC 1 EACH STRIP IN SCH ×4 (00:07→17:10)
[2022-03-30 04:00] VITALS: BP 149/85
--- NOTE | 2022-03-30 04:00 | NUR ---
RN NOTE CALLED SON JERICHO TO OBTAIN TELEPHONE CONSENT IN REGARDS TO WOUND DEBRIDEMENT THIS MORNING. SON DID NOT ANSWER, SENT HIM A VOICEMAIL. WILL CALL HIM BACK BEFORE THE END OF SHIFT.
[2022-03-30] MEDS: DAKINS QUARTER STRENGTH (0.125%) 480 ML BOTTLE TOP SCH ×2 (04:37→08:27)
[2022-03-30] MEDS: LANTHANUM CARBONATE 500 MG TAB.CHEW GT SCH ×3 (04:39→21:14)
[2022-03-30] MEDS: DILTIAZEM HCL 30 MG TABLET GT SCH ×3 (05:04→21:10)
--- NOTE | 2022-03-30 05:24 | NUR ---
RN NOTE BS CHECKED AT 85 MG/DL, NO COVERAGE GIVEN PER SLIDING SCALE.
--- NOTE | 2022-03-30 06:28 | NUR ---
PC MAINTENANCE TECHNICIAN CLOSING NOTES PATIENT REMAINS IN BED AWAKE, NON VERBAL. ON TRACHEOSTOMY CONNECTED TO MECHANICAL VENT SETTINGS, TOLERATING WELL, NO S/SX OF DISTRESS NOTED. WITH IV ACCESS ON MAILE ML INTACT AND PATENT RUNNING NS AT TKO. ON GTUBE RUNNING NEPHRO AT 40 ML/HR. WITH FC DRAINING CLEAR YELLOW URINE, NEPHROSTOMY TUBE INTACT. WOUND CARE DONE. SAFETY MEASURES IN PLACE. ALL DUE MEDS GIVEN, KEPT DRY AND CLEAN, BED LOCKED AND IN LOWEST POSITION, CALL LIGHT WITHIN REACH. BED ALARM ON, SIDE RAILS UP X2, PENDING CONSENT FOR DEBRIDEMENT, CALLED NEXT OF KIN SON AND MORELIA. NO ANSWER. WILL ENDORSE TO AM SHIFT NURSE.
[2022-03-30 06:49] LABS: BASOPHILS # (AUTO) 0.1 K/uL (0.0-0.2); BASOPHILS % (AUTO) 0.3 % (0.0-2.0); EOSINOPHILS % (AUTO) 3.1 % (0.0-6.0); HEMATOCRIT 24 % (39-51); HEMOGLOBIN 7.9 g/dL (13.5-17.5); LYMPHOCYTES # (AUTO) 2.2 K/uL (0.8-4.8); LYMPHOCYTES % (AUTO) 6.9 % (20.0-44.0); MEAN CORPUSCULAR HGB CONC 32 g/dl (31.0-36.0); MEAN CORPUSCULAR VOLUME 92 fL (80-96); MONOCYTES # (AUTO) 2.4 K/uL (0.1-1.30); MONOCYTES % (AUTO) 7.5 % (2.0-12.0); NEUTROPHILS # (AUTO) 26.1 K/uL (1.8-8.9); NEUTROPHILS % (AUTO) 82.2 % (43.0-81.0); PLATELET COUNT (AUTO) 365 K/uL (150-450); RED BLOOD CELL COUNT(AUTO) 2.66 MIL/uL (4.5-6.0)
[2022-03-30 07:20] LABS: CALCIUM, SERUM 9.3 mg/dL (8.5-10.1); CREATININE 2.7 mg/dL (0.6-1.3); POTASSIUM 3.3 mmol/L (3.5-5.1)
--- NOTE | 2022-03-30 07:30 | NUR ---
RN OPENING NOTE PATIENT IS IN BED ASLEEP, NON VERBAL BUT OPENS EYES SPONTANEOUSLY. ON OXYGEN VIA TRACHEOSTOMY TO MECHANICAL VENTILATOR WITH THE FOLLOWING SETTINGS: AC MODE RR 16 FI02 30% TV 400 PEEP 5. BREATHING UNLABORED AND NOT IN ANY FORM OF DISTRESS. RIGHT NEPHROSTOMY TUBE INTACT, DRAINIG TO BROWN COLORED FLUID. G-TUBE INTACT AND INFUSING WITH NEPRO AT 40 ML/HR. LEFT UPPER ARM MIDLINE INTACT AND PATENT. WILL KEEP PATIENT ON ASPIRATION PRECAUTION. ALL HOSPITAL SAFETY PRECAUTIONS ARE IN PLACE. BED IS LOCKED IN LOWEST POSITION, 3 SIDE RAILS UP, CALL LIGHT WITHIN REACH. WILL CONTINUE TO MONITOR THROUGHOUT SHIFT.
[2022-03-30 07:55] LABS: WHITE BLOOD COUNT (AUTO) 31.7 K/uL (4.3-11.0)
[2022-03-30 08:00] VITALS: BP 151/82
[2022-03-30] MEDS: MULTIVITAMINS,THERAGRAN 1 UDTAB TABLET GT SCH (08:21)
[2022-03-30] MEDS: MEROPENEM 500 MG in IV NS 0.9% 50 ML IV SCH ×2 (08:21→20:38)
[2022-03-30] MEDS: METOPROLOL TARTRATE 25 MG TABLET GT SCH ×2 (08:26→21:11)
[2022-03-30] MEDS: PANTOPRAZOLE 40 MG VIAL IV SCH ×2 (08:27→21:11)
[2022-03-30] MEDS: LINEZOLID 600 MG TABLET PO SCH ×2 (08:27→21:11)
[2022-03-30] MEDS: BUMETANIDE (1 MG) 1 MG TABLET GT SCH (08:27)
[2022-03-30] MEDS: THERAHONEY GEL 1.5 OZ TUBE TP SCH (08:28)
--- NOTE | 2022-03-30 08:47 | NUR ---
RN NOTE 1OO CC OF MILKY YELLOW RESIDUAL NOTED. WILL WITHHOLD FEEDING FOR 1 HOUR, AFTER WHICH RESIDUAL WILL BE CHECKED. WILL CONTINUE TO MONITOR.
--- NOTE | 2022-03-30 10:00 | NUR ---
RN NOTE NO RESIDUAL NOTED. FEEDING RESUMED. WILL CONTINUE TO MONITOR.
[2022-03-30 10:32] LABS: BAND % (MANUAL) 4 % (0.0-5.0); BASOPHILS % (MANUAL) 0 % (0.0-2.0); EOSINOPHILS % (MANUAL) 2 % (0-4); LYMPHOCYTES % (MANUAL) 4 % (16-48); MONOCYTES % (MANUAL) 10 % (0-11.0); NEUTROPHILS % (MANUAL) 80 (42-76)
--- NOTE | 2022-03-30 11:37 | NUR ---
RN NOTE BLOOD SUGAR 90 MG/DL. NO INSULIN COVERAGE.
[2022-03-30 12:00] VITALS: BP 146/83
[2022-03-30] MEDS: NEPRO 1,000 ML BOTTLE GT PRN (13:07)
--- NOTE | 2022-03-30 15:28 | NUR ---
Pt. received on current vent orders. Trach is patent, midline and secured. No sob or respiratory distress noted. Back up trach and ambubag is at the bedside. Vent plugged in red outlet, alarms are on and audible. Sx. pt. 2x + prn. Will continue to monitor the pt.
[2022-03-30 16:00] VITALS: BP 147/79
[2022-03-30] MEDS: ASCORBIC ACID 500 MG TABLET GT SCH (17:10)
--- NOTE | 2022-03-30 17:32 | NUR ---
RN NOTE BLOOD SUGAR 123 MG/DL, NO INSULIN COVERAGE.
--- NOTE | 2022-03-30 18:53 | NUR ---
RN CLOSING NOTE PATIENT REMAINED STABLE THROUGHOUT SHIFT. TOLERATES PRESCRIBED VENTILATOR SETTINGS, SATTING AT 100%. STILL TACHYCARDIC AT 116 BPM BUT NO SIGNS OF HEMODYNAMIC INSTABILITY. TRACHEOSTOMY, NEPHROSTOMY, G-TUBE, AND KNUTSON CATHETER TUBE INTACT. IV LINE ON LEFT UPPER ARM MIDLINE REMAINS INTACT AND PATENT. SUCTIONED ORAL AND TRACHEAL SECRETIONS NEEDED. TURNED AND REPOSITIONED FREQUENTLY. ALL HOSPITAL SAFETY PRECAUTIONS KEPT IN PLACE. WILL ENDORSE TO CITIZENSHIP INSTRUCTOR NURSE FOR CONTINUITY OF CARE.
--- NOTE | 2022-03-30 19:45 | NUR ---
TELE1 RN NOTES RECEIVED ON BED,A/O X0,OPEN EYES,NON VERBAL,ON TRACH/VENT,SETTINGS TOLERATED WELL,ST 111 ON TELE MONITOR,WITH GT FEEDING OF NEPRO AT 40ML/HR RATE,TOLERATED WELL,WITH 5CC RESIDUAL VOLUME THIS TIME.HOB ELEVATED FOR ASPIRATION PRECAUTION,SACRAL WOUND WITH DRESSING INTACT AND DRY.WILL REPOSITION Q 2 HOURS PER PROTOCOL.KNUTSON CATH IN PLACE DRAINING YELLOWISH URINE OUTPUT,RIGHT NEPHROSTOMY IN PLACE WITH SCANTY YELLOW OUTPUT.WILL CONTINUE TO MONITOR STATUS,FULL CODE.
[2022-03-30 20:00] VITALS: BP 146/82
--- NOTE | 2022-03-30 21:00 | NUR ---
RECONCILING CLERK NOTES DUE MEDS ADMINISTERED/GT,FLUSHED WITH WATER 150ML.NO RESIDUAL VOLUME NOTED.
[2022-03-31] VITALS (7 sets, daily range): BP systolic 132–148; BP diastolic 72–89
--- NOTE | 2022-03-31 | NUR ---
SLATE ROOFER HELPER NOTES ACCU-CHECK BLOOD SUGAR CHECK 123,NO INSULIN COVERAGE.GT FEEDING IN PROGRESS.
[2022-03-31] MEDS: BLOOD SUGAR DIAGNOSTIC 1 EACH STRIP IN SCH ×4 (00:06→18:03)
--- NOTE | 2022-03-31 00:30 | NUR ---
DORMITORY SUPERVISOR NOTES PM CARE RENDERED,TOLERATED WELL.LEFT WRIST SOFT RESTRAINTS IN USED,TRYING TO PULL OUT TUBINGS.
[2022-03-31] MEDS: LANTHANUM CARBONATE 500 MG TAB.CHEW GT SCH ×3 (05:18→20:55)
[2022-03-31] MEDS: DILTIAZEM HCL 30 MG TABLET GT SCH ×3 (05:19→20:54)
[2022-03-31] MEDS: ACETAMINOPHEN 325 MG TABLET MC PRN (05:20)
--- NOTE | 2022-03-31 05:20 | NUR ---
CPO NOTES BODY TEMPERATURE OF 99.7,TYLENOL 650MG GIVEN GT ORDERED FOR INCREASED TEMPERATURE.
--- NOTE | 2022-03-31 05:30 | NUR ---
METAL FLOW COORDINATOR NOTES ACCU-CHECK BLOOD SUGAR CHECK 113,NO INSULIN COVERAGE,GT FEEDING OF NEPRO IN PROGRESS,NO N/V/ D NOTED
--- NOTE | 2022-03-31 06:47 | NUR ---
MS RN NOTES ON BED,REMAINS NON VERBAL,ONLY OPEN EYES,VENT DEPENDENT,SUCTION NEEDED,GT FEEDING TOLERATED WELL WITH NO RESIDUAL VOLUME.REPOSITION PER PROTOCOL,IN NO ACUTE DISTRESS.
--- NOTE | 2022-03-31 07:30 | NUR ---
telemarketer supervisor opening note patient is obtunded and nonverbal.patient is on trach with ordered settings. patient has iv on left arm. iv flushing and tolerating well.patient has nephrostomy tube.yellow color draining to gravity. patient has gtube and patent. patient has restraint on left arm.relleased circulation every 2 hours.no skin issues or problems with circulation at this time.patient on nephro at 40ml/hr. patient is on tele monitor at sinus tachycardia. all safety measures in place. call light with reach.bed locked at lowest position. bedside table next to patient.
[2022-03-31 09:28] LABS: BASOPHILS # (AUTO) 0.2 K/uL (0.0-0.2); BASOPHILS % (AUTO) 0.5 % (0.0-2.0); EOSINOPHILS % (AUTO) 3.6 % (0.0-6.0); HEMATOCRIT 26 % (39-51); HEMOGLOBIN 8.3 g/dL (13.5-17.5); LYMPHOCYTES # (AUTO) 1.8 K/uL (0.8-4.8); LYMPHOCYTES % (AUTO) 5.6 % (20.0-44.0); MEAN CORPUSCULAR HGB CONC 32 g/dl (31.0-36.0); MEAN CORPUSCULAR VOLUME 91 fL (80-96); MONOCYTES # (AUTO) 1.9 K/uL (0.1-1.30); MONOCYTES % (AUTO) 5.7 % (2.0-12.0); NEUTROPHILS # (AUTO) 27.8 K/uL (1.8-8.9); NEUTROPHILS % (AUTO) 84.6 % (43.0-81.0); PLATELET COUNT (AUTO) 384 K/uL (150-450); RED BLOOD CELL COUNT(AUTO) 2.83 MIL/uL (4.5-6.0)
[2022-03-31 09:36] LABS: WHITE BLOOD COUNT (AUTO) 32.9 K/uL (4.3-11.0)
[2022-03-31 09:43] LABS: CALCIUM, SERUM 9.1 mg/dL (8.5-10.1); CREATININE 2.9 mg/dL (0.6-1.3); POTASSIUM 3.5 mmol/L (3.5-5.1)
--- NOTE | 2022-03-31 10:00 | NUR ---
notified that wbc is 32.9 will follow up
[2022-03-31] MEDS: MULTIVITAMINS,THERAGRAN 1 UDTAB TABLET GT SCH (11:05)
[2022-03-31] MEDS: PANTOPRAZOLE 40 MG VIAL IV SCH ×2 (11:05→20:59)
[2022-03-31] MEDS: LINEZOLID 600 MG TABLET PO SCH ×2 (11:05→20:59)
[2022-03-31] MEDS: BUMETANIDE (1 MG) 1 MG TABLET GT SCH (11:05)
[2022-03-31] MEDS: MEROPENEM 500 MG in IV NS 0.9% 50 ML IV SCH ×2 (11:06→20:59)
[2022-03-31] MEDS: METOPROLOL TARTRATE 25 MG TABLET GT SCH ×2 (11:10→20:55)
[2022-03-31 11:20] LABS: BAND % (MANUAL) 2 % (0.0-5.0); BASOPHILS % (MANUAL) 0 % (0.0-2.0); EOSINOPHILS % (MANUAL) 1 % (0-4); LYMPHOCYTES % (MANUAL) 4 % (16-48); MONOCYTES % (MANUAL) 5 % (0-11.0); NEUTROPHILS % (MANUAL) 88 (42-76)
[2022-03-31] MEDS: THERAHONEY GEL 1.5 OZ TUBE TP SCH (11:47)
[2022-03-31] MEDS: DAKINS QUARTER STRENGTH (0.125%) 480 ML BOTTLE TOP SCH (11:48)
[2022-03-31] MEDS: ASCORBIC ACID 500 MG TABLET GT SCH (17:39)
--- NOTE | 2022-03-31 19:00 | NUR ---
telepathist closing note patient is obtunded and nonverbal.patient is on trach with ordered settings tolerating well. patient has iv on left upper arm.iv patent and flushing well. patient is on gtube feeding nephro at 45ml/hr. gtube intact and patent. patient is on soft wrist restraints on left side. checked circulation no skin issues or circulation problems at this time.patient is on tele monitor sinus tachycardia. all safety measures in place. bed locked at lowest position.call light within reach. side rails up x2. head of bed elevated.
--- NOTE | 2022-03-31 19:40 | NUR ---
GERIATRICIAN OPENING NOTES RECEIVED PATIENT IN BED, ALERT AND ORIENTED X 0, NONVERBAL, OPENS EYES. ON TRACH/VENT, SETTINGS WELL TOLERATED. ON TELEMETRY MONITORING WITH READING OF SINUS TACH HR-111 BPM. GT FEEDING: NEPRO @ 40ML/HR RATE, TOLERATING WELL. NO RESIDUAL AT THIS TIME. WITH KNUTSON CATHETER IN PLACE DRAINING TO YELLOW URINE OUTPUT. WITH RIGHT NEPHROSTOMY IN PLACE WITH SCANTY YELLOW OUTPUT. SACRAL WOUND DRESSING INTACT AND DRY. SAFETY AND ASPIRATION MEASURES IMPLEMENTED: HEAD OF ELEVATED, CALL LIGHT WITHIN REACH, SIDE RAILS UP X2, BED IN LOWEST LOCKED POSITION. WILL CONTINUE PLAN OF CARE.
[2022-04-01] VITALS: BP 150/86
--- NOTE | 2022-04-01 00:30 | NUR ---
RN NOTES BLOOD SUGAR CHECKED - 108 MG/DL; NO INSULIN COVERAGE GIVEN.
[2022-04-01] MEDS: BLOOD SUGAR DIAGNOSTIC 1 EACH STRIP IN SCH ×5 (00:34→23:37)
[2022-04-01 04:00] VITALS: BP 158/81
[2022-04-01] MEDS: NEPRO 1,000 ML BOTTLE GT PRN (05:38)
[2022-04-01] MEDS: LANTHANUM CARBONATE 500 MG TAB.CHEW GT SCH ×3 (05:56→21:12)
[2022-04-01] MEDS: DILTIAZEM HCL 30 MG TABLET GT SCH ×3 (05:57→21:12)
--- NOTE | 2022-04-01 06:06 | NUR ---
RN NOTES BLOOD SUGAR - 98 MG/DL; NO INSULIN COVERAGE GIVEN.
[2022-04-01 06:38] LABS: BASOPHILS # (AUTO) 0.2 K/uL (0.0-0.2); BASOPHILS % (AUTO) 0.6 % (0.0-2.0); EOSINOPHILS % (AUTO) 4.1 % (0.0-6.0); HEMATOCRIT 29 % (39-51); HEMOGLOBIN 9.2 g/dL (13.5-17.5); LYMPHOCYTES # (AUTO) 3.8 K/uL (0.8-4.8); LYMPHOCYTES % (AUTO) 10.2 % (20.0-44.0); MEAN CORPUSCULAR HGB CONC 31 g/dl (31.0-36.0); MEAN CORPUSCULAR VOLUME 94 fL (80-96); MONOCYTES % (AUTO) 5.5 % (2.0-12.0); NEUTROPHILS # (AUTO) 29.5 K/uL (1.8-8.9); NEUTROPHILS % (AUTO) 79.6 % (43.0-81.0); PLATELET COUNT (AUTO) 445 K/uL (150-450); RED BLOOD CELL COUNT(AUTO) 3.14 MIL/uL (4.5-6.0)
--- NOTE | 2022-04-01 07:05 | NUR ---
SUPERINTENDENT BOARD MILL CLOSING NOTES PATIENT IN BED, A/O X0, NON VERBAL OPENS EYES. ON TRACH/VENT, SETTINGS WELL TOLERATED. ON TELE MONITORING WITH READING OF SINUS TACH HR-115 BPM. ON NEPRO FEEDING @ 40ML/HR, TOLERATING WELL. WITH KNUTSON CATHETER IN PLACE DRAINING TO YELLOW URINE OUTPUT. WITH RIGHT NEPHROSTOMY IN PLACE WITH SCANTY YELLOW OUTPUT. SACRAL WOUND DRESSING INTACT AND DRY. SAFETY AND ASPIRATION MEASURES IN PLACE: HOB ELEVATED, CALL LIGHT WITHIN REACH, SIDE RAILS UP X2, BED IN LOWEST LOCKED POSITION. ENDORSED TO MORNING SHIFT FOR HAMILTON.
[2022-04-01 07:12] LABS: CREATININE 2.7 mg/dL (0.6-1.3); POTASSIUM 3.8 mmol/L (3.5-5.1)
[2022-04-01] MEDS ORDERED: LEVOFLOXACIN 750 MG /D5W 150ML 750 MG in PREMIX 1 EA IV ONE (07:30)
--- NOTE | 2022-04-01 07:30 | NUR ---
REAL ESTATE OFFICE SUPERVISOR OPENING NOTE Patient is obtuned and nonverbal, opens eyes. patient is on tracheostomy with ordered settings tolerating at well at 100%. patient is on tele monitor with sinus tachycardia. patient has iv on left arm. iv intact and flushing well. patient has soft wrist restraints on left wrist. no skin or circulation issues noted at this time.patient has nephro feeding at 40ml/hr. patient has nephrostomy tube with yellow color urine output. patient has sacral wounds. all safety measures in place. call light with reach.bed locked at lowest position. side rails up x2. head of bed elevated.
[2022-04-01 08:00] VITALS: BP 144/90
[2022-04-01] MEDS: LINEZOLID 600 MG TABLET PO SCH ×2 (09:58→21:12)
[2022-04-01] MEDS: MEROPENEM 500 MG in IV NS 0.9% 50 ML IV SCH ×2 (09:58→21:11)
[2022-04-01] MEDS: BUMETANIDE (1 MG) 1 MG TABLET GT SCH (09:59)
[2022-04-01] MEDS: MULTIVITAMINS,THERAGRAN 1 UDTAB TABLET GT SCH (09:59)
[2022-04-01] MEDS: PANTOPRAZOLE 40 MG VIAL IV SCH ×2 (09:59→21:12)
[2022-04-01] MEDS: METOPROLOL TARTRATE 25 MG TABLET GT SCH ×2 (10:04→21:18)
[2022-04-01] MEDS: ACETAMINOPHEN 325 MG TABLET MC PRN (10:14)
--- NOTE | 2022-04-01 11:30 | NUR ---
rn note patient heart rate 140s-150s. notified that Metoprol was given and Tylenol was given. askede if Cardizem can be given 1 hour earlier due to high heart rate dr. child said okay to give. monitored hr closely for a few minutes. hr went down to 120s. gave Cardizem at scheduled dose 1300
[2022-04-01 11:55] LABS: BAND % (MANUAL) 4 % (0.0-5.0); BASOPHILS % (MANUAL) 0 % (0.0-2.0); EOSINOPHILS % (MANUAL) 2 % (0-4); LYMPHOCYTES % (MANUAL) 11 % (16-48); MONOCYTES % (MANUAL) 5 % (0-11.0); NEUTROPHILS % (MANUAL) 78 (42-76)
[2022-04-01 12:00] VITALS: BP 110/65
[2022-04-01] MEDS: THERAHONEY GEL 1.5 OZ TUBE TP SCH (12:59)
[2022-04-01] MEDS: DAKINS QUARTER STRENGTH (0.125%) 480 ML BOTTLE TOP SCH (12:59)
[2022-04-01 16:00] VITALS: BP 104/58
[2022-04-01] MEDS: ASCORBIC ACID 500 MG TABLET GT SCH (17:30)
--- NOTE | 2022-04-01 19:10 | NUR ---
HOME CARE ASSOCIATE OPENING NOTES RECEIVED PATIENT IN BED, ALERT AND ORIENTED X 0, NONVERBAL, OPENS EYES. ON TRACH/VENT, SETTINGS WELL TOLERATED. ON TELEMETRY MONITORING WITH READING OF SINUS TACH HR-111 BPM. GT FEEDING: NEPRO @ 40ML/HR RATE, TOLERATING WELL. NO RESIDUAL AT THIS TIME. WITH KNUTSON CATHETER IN PLACE CONNECTED TO URINE BAGS DRAINING YELLOWISH URINE OUTPUT. WITH RIGHT NEPHROSTOMY IN PLACE WITH SCANTY YELLOW OUTPUT. SACRAL WOUND DRESSING INTACT AND DRY. SAFETY AND ASPIRATION MEASURES IMPLEMENTED: HEAD OF ELEVATED, CALL LIGHT WITHIN REACH, SIDE RAILS UP X2, BED IN LOWEST LOCKED POSITION. WILL CONTINUE PLAN OF CARE.
--- NOTE | 2022-04-01 19:30 | NUR ---
telephone directory deliverer closing note Patient is obtunded and nonverbal, opens eyes. patient is on tracheostomy with ordered settings tolerating at well at 100%. no pain/discomfort noted at this time. patient is on tele monitor with sinus tachycardia. patient has iv on left arm. iv intact and flushing well. patient has soft wrist restraints on left wrist. no skin or circulation issues noted at this time.patient has nephro feeding at 40ml/hr. patient has nephrostomy tube with yellow color urine output. patient has sacral wounds. all safety measures in place. call light with reach.bed locked at lowest position. side rails up x2. head of bed elevated.
[2022-04-01 20:00] VITALS: BP 123/69
[2022-04-01] MEDS: INSULIN REGULAR, HUMAN 100 UNIT/ML 3 ML VIAL SQ PRN (23:38)
[2022-04-02] VITALS: BP 134/71
[2022-04-02] MEDS: MORPHINE SULFATE INJ 2 MG/ML DISP.SYRIN IV PRN (00:20)
[2022-04-02 04:00] VITALS: BP 117/73
[2022-04-02] MEDS: DILTIAZEM HCL 30 MG TABLET GT SCH ×3 (05:08→20:59)
[2022-04-02] MEDS: BLOOD SUGAR DIAGNOSTIC 1 EACH STRIP IN SCH ×4 (05:09→23:28)
[2022-04-02] MEDS: INSULIN REGULAR, HUMAN 100 UNIT/ML 3 ML VIAL SQ PRN (05:09)
[2022-04-02] MEDS: LANTHANUM CARBONATE 500 MG TAB.CHEW GT SCH ×3 (05:09→21:02)
--- NOTE | 2022-04-02 06:28 | NUR ---
RN NOTES PATIENT REMAINS STABLE NO SIGNIFICANT CHANGES IN HEALTH CONDITION. ALL DUE MEDS GIVEN. ON TRACH CONNECTED TO MV. GT PATENT CONNECTED TO CONTINUOS GT FEEDING TOLERATING WELL. WITH NEPHROSTOMY TUBE INTACT WITH 100 CC OUTPUT. ALL SAFETY MEASURES IN PLACE. HOB ELEVATED. CALL LIGHT WITHIN REACH. WILL ENDORSED TO MORNING SHIFT FOR HAMILTON
[2022-04-02 06:50] LABS: BASOPHILS # (AUTO) 0.1 K/uL (0.0-0.2); BASOPHILS % (AUTO) 0.3 % (0.0-2.0); EOSINOPHILS % (AUTO) 2.9 % (0.0-6.0); HEMATOCRIT 25 % (39-51); HEMOGLOBIN 8.2 g/dL (13.5-17.5); LYMPHOCYTES # (AUTO) 1.9 K/uL (0.8-4.8); LYMPHOCYTES % (AUTO) 6.6 % (20.0-44.0); MEAN CORPUSCULAR HGB CONC 32 g/dl (31.0-36.0); MEAN CORPUSCULAR VOLUME 91 fL (80-96); MONOCYTES # (AUTO) 1.7 K/uL (0.1-1.30); MONOCYTES % (AUTO) 5.8 % (2.0-12.0); NEUTROPHILS # (AUTO) 24.6 K/uL (1.8-8.9); NEUTROPHILS % (AUTO) 84.4 % (43.0-81.0); PLATELET COUNT (AUTO) 415 K/uL (150-450); RED BLOOD CELL COUNT(AUTO) 2.79 MIL/uL (4.5-6.0); WHITE BLOOD COUNT (AUTO) 29.1 K/uL (4.3-11.0)
[2022-04-02 07:10] LABS: CALCIUM, SERUM 10.2 mg/dL (8.5-10.1); CREATININE 2.8 mg/dL (0.6-1.3)
--- NOTE | 2022-04-02 07:30 | NUR ---
telephone information clerk opening note patient is obtunded,nonverbal able to open eyes. patient is on tracheostomy with ordered settings. tolerating well at 98%.patient has gtube patent and intact. patient has iv site on left upper arm. iv patent and flushing well. patient has nephro running at 40ml/hr. patient has nephrostomy and Fields catheter. yellow/veronica color draining to gravity.patient has left soft wrist restraints. checked skin and circulation. no skin issues or circulation noted at this time. all safety measures in place.call light with reach. bed locked at lowest position. side rails up x2.
[2022-04-02 08:00] VITALS: BP 124/74
[2022-04-02] MEDS: METOPROLOL TARTRATE 25 MG TABLET GT SCH ×2 (08:33→21:01)
[2022-04-02] MEDS: BUMETANIDE (1 MG) 1 MG TABLET GT SCH (08:33)
[2022-04-02] MEDS: LINEZOLID 600 MG TABLET PO SCH ×2 (08:34→21:02)
[2022-04-02] MEDS: MEROPENEM 500 MG in IV NS 0.9% 50 ML IV SCH ×2 (08:34→21:03)
[2022-04-02] MEDS: MULTIVITAMINS,THERAGRAN 1 UDTAB TABLET GT SCH (08:34)
[2022-04-02] MEDS: PANTOPRAZOLE 40 MG VIAL IV SCH (08:34)
[2022-04-02] MEDS: DAKINS QUARTER STRENGTH (0.125%) 480 ML BOTTLE TOP SCH (09:26)
[2022-04-02] MEDS: THERAHONEY GEL 1.5 OZ TUBE TP SCH (11:50)
[2022-04-02 12:00] VITALS: BP 108/68
[2022-04-02] MEDS: ACETAMINOPHEN 325 MG TABLET MC PRN (14:51)
--- NOTE | 2022-04-02 15:10 | NUR ---
telegraphic instrument supervisor note notified that patient is pulling on his gtube and other iv lines/feeding tubes. asked if mitten restraint can be ordered said okay.patient currently has left soft wrist restraints
[2022-04-02 16:00] VITALS: BP 99/46
[2022-04-02] MEDS: ASCORBIC ACID 500 MG TABLET GT SCH (17:21)
--- NOTE | 2022-04-02 19:10 | NUR ---
NEUROLOGY PHYSICIAN OPENING NOTES RECEIVED PATIENT IN BED, ALERT rRESPONSIVE TO TACTILE STIMULI, NONVERBAL, OPENS EYES. ON TRACH/VENT, SETTINGS WELL TOLERATED. ON TELEMETRY MONITORING WITH READING OF SINUS TACH HR-111 BPM. GT FEEDING: NEPRO @ 40ML/HR RATE, TOLERATING WELL. NO RESIDUAL AT THIS TIME. WITH KNUTSON CATHETER IN PLACE CONNECTED TO URINE BAGS DRAINING YELLOWISH URINE OUTPUT. WITH RIGHT NEPHROSTOMY IN PLACE WITH SCANTY YELLOW OUTPUT. SACRAL WOUND DRESSING INTACT AND DRY. SAFETY AND ASPIRATION MEASURES IMPLEMENTED: HEAD OF ELEVATED, CALL LIGHT WITHIN REACH, SIDE RAILS UP X2, BED IN LOWEST LOCKED POSITION. WILL CONTINUE PLAN OF CARE.
--- NOTE | 2022-04-02 19:30 | NUR ---
director telehealth closing note patient is obtunded, nonverbal,and able to open eyes. patient is on tele monitor currently sinus rhytm/sinus tachycardia. patient is on tracheostomy with ordered settings tolerating well at 98%.patient has gtube patent and intact. patient has iv site on left upper arm. iv patent and flushing well. patient has nephro running at 40ml/hr. patient has nephrostomy and Fields catheter. yellow/veronica color draining to gravity.patient has left soft wrist restraints. checked skin and circulation. no skin issues or circulation noted at this time. all safety measures in place.call light with reach. head of bed elevated. bed locked at lowest position. side rails up x2.
[2022-04-02 20:00] VITALS: BP 114/64
[2022-04-02] MEDS: PANTOPRAZOLE 40 MG/PACK PACK NG SCH (20:26)
[2022-04-03] VITALS: BP 102/72
[2022-04-03 04:00] VITALS: BP 140/72
[2022-04-03] MEDS: LANTHANUM CARBONATE 500 MG TAB.CHEW GT SCH ×3 (04:43→20:37)
[2022-04-03] MEDS: DILTIAZEM HCL 30 MG TABLET GT SCH ×3 (04:46→20:39)
[2022-04-03] MEDS: INSULIN REGULAR, HUMAN 100 UNIT/ML 3 ML VIAL SQ PRN (05:43)
[2022-04-03] MEDS: BLOOD SUGAR DIAGNOSTIC 1 EACH STRIP IN SCH ×3 (05:43→17:20)
[2022-04-03] MEDS: MORPHINE SULFATE INJ 2 MG/ML DISP.SYRIN IV PRN (05:50)
--- NOTE | 2022-04-03 06:43 | NUR ---
RN NOTES PATIENT REMAINS STABLE NO SIGNIFICANT CHANGES IN HEALTH CONDITION. ALL DUE MEDS GIVEN. ON TRACH CONNECTED TO MV. GT PATENT CONNECTED TO CONTINUOS GT FEEDING TOLERATING WELL. WITH NEPHROSTOMY TUBE INTACT WITH 150 CC OUTPUT. ALL SAFETY MEASURES IN PLACE. HOB ELEVATED. CALL LIGHT WITHIN REACH. WILL ENDORSED TO MORNING SHIFT FOR HAMILTON
[2022-04-03] MEDS: NEPRO 1,000 ML BOTTLE GT PRN (07:00)
--- NOTE | 2022-04-03 07:51 | NUR ---
HAND TIER NOTE PATIENT IN BED WITH TRACH TO VENT SETTING ORDERED,ON TELE MONITOR ST HR 107 RESPIRATION NOTED SLIGHTLY LABORED OPEN BOTH EYES NONVERBAL, WITH KNUTSON CATH TO GRAVITY WITH YELLOW COLOR URINE AND RT SIDE NEPHROSTOMY WITH SMALL AMT OF YELLOW COLOR URINE NOTED, ,ON G TUBE FEEDING ORDERED ,KEEP HOB ELEVATED AT ALL TIME,MAILE MID LINE IN PLCE , BED IN LOWEST AND LOCKED POSITION, SAFETY MEASURE PROVIDED , WILL MONITOR
[2022-04-03 08:00] VITALS: BP 128/67
[2022-04-03] MEDS: LINEZOLID 600 MG TABLET PO SCH ×2 (09:19→20:32)
[2022-04-03] MEDS: MEROPENEM 500 MG in IV NS 0.9% 50 ML IV SCH ×2 (09:19→20:31)
[2022-04-03] MEDS: MULTIVITAMINS,THERAGRAN 1 UDTAB TABLET GT SCH (09:20)
[2022-04-03] MEDS: BUMETANIDE (1 MG) 1 MG TABLET GT SCH (09:20)
[2022-04-03] MEDS: METOPROLOL TARTRATE 25 MG TABLET GT SCH ×2 (09:20→20:39)
[2022-04-03] MEDS: PANTOPRAZOLE 40 MG/PACK PACK NG SCH ×2 (09:21→19:32)
[2022-04-03] MEDS: DAKINS QUARTER STRENGTH (0.125%) 480 ML BOTTLE TOP SCH (09:29)
[2022-04-03] MEDS: THERAHONEY GEL 1.5 OZ TUBE TP SCH (09:29)
[2022-04-03] MEDS: LEVOFLOXACIN 500 MG /D5W 100ML 500 MG in PREMIX 1 EA IV SCH (10:03)
--- NOTE | 2022-04-03 10:30 | NUR ---
TUBING SUPERVISOR NOTE ROUNDS MADE ,STILL WITH SLIGHT SOB, RT AT BEDSIDE TRACH CARE DONE SUCTION DONE WITH LARGE AMT OF WHITE SECRETION WILL MONITOR
--- NOTE | 2022-04-03 11:23 | NUR ---
EVALUATION ADVISOR NOTE DR HOYT [facility] AID AT BEDSIDE ,NOTIFIED THAT PATIENT HAS SLIGHTLY LABORED RESPIRATION TRACH SUCTION DONE AND ORDERED CHEST X RAY ,ORDER CARRIED OUT
[2022-04-03 12:00] VITALS: BP 125/69
--- NOTE | 2022-04-03 13:05 | NUR ---
telegraph service clerk note chest xy done as ordered
[2022-04-03 16:00] VITALS: BP 99/54
[2022-04-03] MEDS: ASCORBIC ACID 500 MG TABLET GT SCH (17:21)
--- NOTE | 2022-04-03 18:56 | NUR ---
PRODUCT BUILDER NOTE PATIENT IN BED STILL SLIGHT LABORED RESPIRATION , WITH TRACH TO VENT SETTING ORDERED , WITH G TUBE FEEDING ORDERED , KEEP HOB ELEVATED AT ALL TIME,MAILE MID LINE DRESSING CHANGED , KEEP CLEAN DRY , BED IN LOWEST AND LOCKED POSITION , WILL CONT TO MONITOR CLOSELY
--- NOTE | 2022-04-03 19:30 | NUR ---
RECEIVED PATIENT IN BED AWAKE. NONVERBAL. SLIGHT LABORED RESPIRATION, WITH TRACH TO VENT SETTING ORDERED, WITH G TUBE INFUSING NEPHRO @ 40ML/HRX20 HRS, FROM 8 AM TO 4 AM, HOB ELEVATED, MAILE MID LINE C/D/I, NEPHROSTOMY TUBE IN PLACE C/D/I. SAFETY MEASURES IN PLACE, SIDE RAILS UP X2, BED ALARM ON, BED LOCKED IN LOWEST POSITION. TABLE AND CALL LIGHT WITHIN REACH. WILL CONTINUE PLAN OF CARE.
[2022-04-03] MEDS: HYDROCODONE/APAP 5/325MG TABLET GT PRN (19:56)
[2022-04-03 20:00] VITALS: BP 121/62
[2022-04-04] VITALS: BP 93/61
[2022-04-04] MEDS: BLOOD SUGAR DIAGNOSTIC 1 EACH STRIP IN SCH ×5 (00:36→23:19)
[2022-04-04] MEDS: INSULIN REGULAR, HUMAN 100 UNIT/ML 3 ML VIAL SQ PRN ×2 (00:37→05:29)
[2022-04-04 04:00] VITALS: BP 102/61
[2022-04-04] MEDS: LANTHANUM CARBONATE 500 MG TAB.CHEW GT SCH ×3 (04:09→21:05)
[2022-04-04] MEDS: DILTIAZEM HCL 30 MG TABLET GT SCH ×3 (04:09→21:08)
--- NOTE | 2022-04-04 06:45 | NUR ---
PATIENT IN BED ASLEEP. OPENS EYES, NONVERBAL. SLIGHTLY LABORED RESPIRATION NOTED, WITH TRACH TO VENT SETTING ORDERED, WITH G TUBE INFUSING NEPHRO @ 40ML/HR, X20 HRS, FROM 8AM TO 4AM, HOB ELEVATED, MAILE MID LINE C/D/I, NEPHROSTOMY TUBE IN PLACE C/D/I. SAFETY MEASURES IN PLACE, SIDE RAILS UP X2, BED ALARM ON, BED LOCKED IN LOWEST POSITION. TABLE AND CALL LIGHT WITHIN REACH. WILL ENDORSE TO NEXT NURSE ON DUTY FOR CONTINUITY OF CARE.
--- NOTE | 2022-04-04 07:25 | NUR ---
telephone order supervisor opening note patient is nonverbal and opens eyes. patient is on trach with ordered settings tolerating at 99%.patient is on tele monitor currently sinus rhytm/sinus tachycardia. patient has wounds on sacral area and hip area. patient has left soft wrist restraints on left arm. no circulation issues noted at this time. patient is on tube feeding.patient currently has nephro running at 40 ml/hr. gtube intact and patent.patient has left upper arm midline.iv intact and patent,flushing well. all safety measures in place. call light with reach.bed locked at lowest position.side rails up x2.
[2022-04-04 08:00] VITALS: BP 84/49
--- NOTE | 2022-04-04 08:20 | NUR ---
television repairer note notified dr. child that patient bp 84/49. patient has metoprol scheduled for 0900. asked md if ok hold to metoprol. said okay. held metoprol
[2022-04-04] MEDS: METOPROLOL TARTRATE 25 MG TABLET GT SCH ×2 (08:23→21:00)
[2022-04-04] MEDS: NEPRO 1,000 ML BOTTLE GT PRN (08:27)
[2022-04-04] MEDS: MEROPENEM 500 MG in IV NS 0.9% 50 ML IV SCH ×2 (08:27→21:04)
[2022-04-04] MEDS: LINEZOLID 600 MG TABLET PO SCH ×2 (08:28→21:05)
[2022-04-04] MEDS: PANTOPRAZOLE 40 MG/PACK PACK NG SCH ×2 (08:28→19:58)
[2022-04-04] MEDS: MULTIVITAMINS,THERAGRAN 1 UDTAB TABLET GT SCH (08:28)
[2022-04-04] MEDS: BUMETANIDE (1 MG) 1 MG TABLET GT SCH (08:28)
--- NOTE | 2022-04-04 09:13 | NUR ---
telecommunications sales representative note notified dr. hcild if mitten restraints can be ordered due to patient pulling on gtube and other tubing. said ok to order
[2022-04-04] MEDS: THERAHONEY GEL 1.5 OZ TUBE TP SCH (09:58)
[2022-04-04] MEDS: DAKINS QUARTER STRENGTH (0.125%) 480 ML BOTTLE TOP SCH (09:59)
[2022-04-04 12:00] VITALS: BP 107/66
[2022-04-04 16:00] VITALS: BP 105/66
[2022-04-04] MEDS: ASCORBIC ACID 500 MG TABLET GT SCH (17:18)
[2022-04-04 17:37] LABS: BILIRUBIN,URINE SMALL (NEGATIVE); COLOR,URINE YELLOW (YELLOW); LEUKOCYTE ESTERASE ,URINE LARGE (NEGATIVE); NITRITE, URINE NEGATIVE (NEGATIVE); PROTEIN,URINE 100 mg/dl (NEGATIVE); UGLUCOSE NEGATIVE (NEGATIVE); UROBILINOGEN,URINE 0.2 EU/dL (0.2)
[2022-04-04 17:55] LABS: RBC,URINE 81-100 /HPF (0-2)
[2022-04-04] MEDS: ACETAMINOPHEN 325 MG TABLET MC PRN (17:55)
[2022-04-04 17:56] LABS: BACTERIA,URINE 3+ /HPF (None Seen); CALCIUM OXALATE CRYSTALS,UR Few /HPF (None Seen); SQUAMOUS EPITHELIAL CELL,UR 0-2 /HPF (None Seen); WBC,URINE 81-100 /HPF (0-3)
--- NOTE | 2022-04-04 19:30 | NUR ---
RN note received patient in bed, awake, non-verbal. Breathing even and unlabored. Tachypneic. tracheostomy, on vent. tolerating vent settings. No distress noted. Skin warm and dry to touch. Noted with Peg tube with TF of Nepro at 40 Ml/hr. 200 ml residual noted. Left upper arm midline, no ivf infusing. indwelling de anda catheter draining by gravity, right neprhostomy draining green residual by gravity. patient turned and repositioned. Bed low, in locked position. Will continue to monitor.
--- NOTE | 2022-04-04 19:30 | NUR ---
COLLABORATING SUPERVISING PHYSICIAN OPENING NOTE PATIENT ABLE TO OPEN EYES AND NONVERBAL. PATIENT IS ON TELE MONITOR SINUS TACHYCARDIA. PATIENT IS ON TRACH WITH ORDERED SETTINGS TOLERATING WELL AT 100%. PATIENT HAS WOUND ON SACRAL AREA, AND HIP AREA.KEPT CLEAN AND DRY. PATIENT IS ON TUBE FEEDING NEPHRO 40ML/HR. GTUBE INTACT AND PATENT. PATIENT HAS MIDLINE ON LEFT UPPER ARM. IV INTACT AND PATENT.ALL SAFETY MEASURES IN PLACE. CALL LIGHT WITH REACH. BED LOCKED AT LOWEST POSITION. SIDE RAILS UP X2. Addendum: 04/04/22 at 1933 by SHAHLA GALAVIZ RN COLLABORATING SUPERVISING PHYSICIAN CLOSING NOTE PATIENT HAS LEFT MITTEN RESTRAINTS. NO SKIN OR CIRCULATION ISSUES NOTED AT THIS TIME. PATIENT PULLS ON GTUBE AND OTHER IV LINES.
[2022-04-04 20:00] VITALS: BP 94/52
--- NOTE | 2022-04-04 22:02 | NUR ---
RN NOTE Endorsed to Gloria MEDINA for HAMILTON.
--- NOTE | 2022-04-04 22:05 | NUR ---
RN NOTE RECEIVED REPORT FROM ADAM GARCIA. FOR HAMILTON. WILL CONTINUE TO MONITOR PT.
[2022-04-05] VITALS: BP 108/65
[2022-04-05] MEDS: INSULIN REGULAR, HUMAN 100 UNIT/ML 3 ML VIAL SQ PRN ×2 (00:49→05:19)
[2022-04-05] MEDS: ACETAMINOPHEN 325 MG TABLET MC PRN (01:34)
[2022-04-05] MEDS: MORPHINE SULFATE INJ 2 MG/ML DISP.SYRIN IV PRN (02:42)
--- NOTE | 2022-04-05 02:50 | NUR ---
RN NOTE PT NOTED TO BE TACHYCARDIC WITH HR OF 140. FACIAL GRIMACE NOTED TOO. GAVE MORPHINE PRN ORDERED. WILL REASSESS IN 30 MINUTES.
--- NOTE | 2022-04-05 03:20 | NUR ---
RN NOTE PT SLEEPING. LOOKED CALM WITH NO FACIAL GRIMACE NOTED THIS TIME. HR WENT DOWN BUT STILL ELEVATED AT >120. BP AT 115/61. NO S/SX OF ACUTE DISTRESS AT THIS TIME. WILL CONTINUE TO MONITOR.
[2022-04-05 04:00] VITALS: BP 115/61
[2022-04-05] MEDS: DILTIAZEM HCL 30 MG TABLET GT SCH ×3 (04:06→20:55)
[2022-04-05] MEDS: BLOOD SUGAR DIAGNOSTIC 1 EACH STRIP IN SCH ×3 (05:15→18:18)
--- NOTE | 2022-04-05 06:26 | NUR ---
RN CLOSING NOTE PT REMAINED TACHYCARDIC ON TELE MONITOR WITH HR IN THE >120. O2 SAT IS 99-100%. PT AFEBRILE. OTHER VS STABLE. ALL DUE MEDS GIVEN. NEEDS ATTENDED TO. MITTEN AND SOFT WRIST RESTRAINT ON THE LEFT HAND STILL IN PLACE. ALL SAFETY MEASURES IMPLEMENTED. WILL ENDORSE TO AM SHIFT NURSE FOR HAMILTON.
[2022-04-05 07:14] LABS: BASOPHILS # (AUTO) 0.1 K/uL (0.0-0.2); BASOPHILS % (AUTO) 0.4 % (0.0-2.0); EOSINOPHILS % (AUTO) 3.2 % (0.0-6.0); HEMATOCRIT 26 % (39-51); HEMOGLOBIN 7.7 g/dL (13.5-17.5); LYMPHOCYTES # (AUTO) 2.4 K/uL (0.8-4.8); LYMPHOCYTES % (AUTO) 10.4 % (20.0-44.0); MEAN CORPUSCULAR HGB CONC 30 g/dl (31.0-36.0); MEAN CORPUSCULAR VOLUME 97 fL (80-96); MONOCYTES # (AUTO) 1.7 K/uL (0.1-1.30); MONOCYTES % (AUTO) 7.2 % (2.0-12.0); NEUTROPHILS # (AUTO) 18.1 K/uL (1.8-8.9); NEUTROPHILS % (AUTO) 78.8 % (43.0-81.0); PLATELET COUNT (AUTO) 385 K/uL (150-450); RED BLOOD CELL COUNT(AUTO) 2.66 MIL/uL (4.5-6.0)
[2022-04-05 07:23] LABS: CALCIUM, SERUM 10.5 mg/dL (8.5-10.1); CREATININE 3.6 mg/dL (0.6-1.3); POTASSIUM 5.1 mmol/L (3.5-5.1)
--- NOTE | 2022-04-05 07:34 | NUR ---
RN OPEN NOTE SUPERVISOR TREE TRIMMING OPENING NOTE PATIENT IS IN BED ABLE TO OPEN EYES NONVERBAL. PATIENT IS ON TELE MONITOR SINUS TACHYCARDIA. PATIENT IS ON TRACH WITH ORDERED SETTINGS TOLERATING WELL AT 100%. PATIENT HAS WOUND ON SACRAL AREA, AND HIP AREA.KEPT CLEAN AND DRY. PATIENT IS ON TUBE FEEDING NEPHRO 40ML/HR. GTUBE INTACT AND PATENT. PATIENT HAS MIDLINE ON LEFT UPPER ARM. IV INTACT AND PATENT.ALL SAFETY MEASURES IN PLACE. CALL LIGHT WITH REACH. BED LOCKED AT LOWEST POSITION. SIDE RAILS UP X2. PATIENT HAS LEFT MITTEN RESTRAINTS DUE TO TRYI NG TO PULL OUT THR GTUBE . BED IS AT LOWEST POSITION , CALL LIGHT WITHIN REACH, SIDE RAILS ARE UP , WILL CONTINUE TO MONITOR
[2022-04-05 08:00] VITALS: BP 143/62
[2022-04-05] MEDS: BUMETANIDE (1 MG) 1 MG TABLET GT SCH (09:16)
[2022-04-05] MEDS: METOPROLOL TARTRATE 25 MG TABLET GT SCH ×2 (09:16→20:56)
[2022-04-05] MEDS: LINEZOLID 600 MG TABLET PO SCH ×2 (09:16→20:54)
[2022-04-05] MEDS: MULTIVITAMINS,THERAGRAN 1 UDTAB TABLET GT SCH (09:16)
[2022-04-05] MEDS: LEVOFLOXACIN 500 MG /D5W 100ML 500 MG in PREMIX 1 EA IV SCH (09:19)
[2022-04-05] MEDS: MEROPENEM 500 MG in IV NS 0.9% 50 ML IV SCH ×2 (09:19→20:53)
[2022-04-05] MEDS: PANTOPRAZOLE 40 MG/PACK PACK NG SCH ×2 (09:20→19:45)
[2022-04-05] MEDS: THERAHONEY GEL 1.5 OZ TUBE TP SCH (09:21)
[2022-04-05] MEDS: DAKINS QUARTER STRENGTH (0.125%) 480 ML BOTTLE TOP SCH (09:21)
[2022-04-05] MEDS: LANTHANUM CARBONATE 500 MG TAB.CHEW GT SCH ×3 (10:03→20:54)
[2022-04-05 12:00] VITALS: BP 136/57
[2022-04-05 16:00] VITALS: BP 145/60
[2022-04-05] MEDS: ASCORBIC ACID 500 MG TABLET GT SCH (18:06)
--- NOTE | 2022-04-05 18:52 | NUR ---
telesales agent closing note patient is obtunded, nonverbal,and able to open eyes. patient is on tele monitor currently sinus rhytm/sinus tachycardia. patient is on tracheostomy with ordered settings tolerating well at 98%.patient has gtube patent and intact running Nephro 45 ml/hr. patient has iv site on left upper arm. iv patent and flushing well. patient has nephrostomy and Fields catheter. yellow/veronica color draining to gravity.patient has left soft wrist restraints. checked skin and circulation. no skin issues or circulation noted at this time. all safety measures in place.call light with reach. head of bed elevated. bed locked at lowest position. side rails up x2.
--- NOTE | 2022-04-05 19:50 | NUR ---
RN note received patient in bed, awake, non-verbal. Breathing even and unlabored. Tachypneic. tracheostomy, on vent. tolerating vent settings. No distress noted. Skin warm and moist. Noted with Peg tube with TF of Nepro at 45 Ml/hr. 20 ml residual. Left upper arm midline, no ivf infusing. indwelling de anda catheter draining by gravity, right neprhostomy draining green residual by gravity. patient turned and repositioned. Bed low, in locked position. Will continue to monitor.
[2022-04-05] MEDS: NEPRO 1,000 ML BOTTLE GT PRN (19:52)
[2022-04-05 20:00] VITALS: BP 90/57
[2022-04-05] MEDS: HYDROCODONE/APAP 5/325MG TABLET GT PRN (22:36)
[2022-04-06] VITALS: BP 118/59
[2022-04-06] MEDS: BLOOD SUGAR DIAGNOSTIC 1 EACH STRIP IN SCH ×4 (00:03→18:44)
[2022-04-06 04:00] VITALS: BP 104/60
[2022-04-06] MEDS: LANTHANUM CARBONATE 500 MG TAB.CHEW GT SCH ×3 (05:14→20:33)
[2022-04-06] MEDS: DILTIAZEM HCL 30 MG TABLET GT SCH ×3 (05:16→20:32)
[2022-04-06] MEDS: NEPRO 1,000 ML BOTTLE GT PRN (05:57)
--- NOTE | 2022-04-06 07:54 | NUR ---
PATIENT TACHYPNEIC ,HR 140,S,PRN ATIVAN GIVEN ORDERED WILL CONTINUE TO MONITOR.
[2022-04-06 08:00] VITALS: BP 103/53
[2022-04-06] MEDS ORDERED: LORAZEPAM INJ 2 MG/ML VIAL IV ONE (08:00)
[2022-04-06] MEDS: METOPROLOL TARTRATE 25 MG TABLET GT SCH ×2 (09:00→20:33)
[2022-04-06] MEDS: BUMETANIDE (1 MG) 1 MG TABLET GT SCH (09:20)
[2022-04-06] MEDS: LINEZOLID 600 MG TABLET PO SCH ×2 (09:20→20:33)
[2022-04-06] MEDS: PANTOPRAZOLE 40 MG/PACK PACK NG SCH ×2 (09:20→20:33)
[2022-04-06] MEDS: MULTIVITAMINS,THERAGRAN 1 UDTAB TABLET GT SCH (09:20)
[2022-04-06] MEDS: MEROPENEM 500 MG in IV NS 0.9% 50 ML IV SCH ×2 (09:21→20:32)
[2022-04-06] MEDS: DAKINS QUARTER STRENGTH (0.125%) 480 ML BOTTLE TOP SCH ×2 (09:21→10:44)
[2022-04-06] MEDS: THERAHONEY GEL 1.5 OZ TUBE TP SCH ×2 (09:22→10:45)
[2022-04-06 12:00] VITALS: BP 101/46
[2022-04-06] MEDS: MORPHINE SULFATE INJ 2 MG/ML DISP.SYRIN IV PRN (12:43)
[2022-04-06] MEDS ORDERED: IV NS 0.9% 500 ML IV ONE ×2 (13:00→16:30)
--- NOTE | 2022-04-06 15:16 | NUR ---
patient with on going tachypnea despite ivf bolus per susana foundry superintendant he discussed pt. condition with dr. aaron anne,unable to reach family per susana .
--- NOTE | 2022-04-06 15:18 | NUR ---
ARYA SÁNCHEZ NP VERBALIZED PATIENT MIGHT NEED HD SINCE PT WAS DIALYSIS PT. BEFORE,UNABLE TO REACH FAMILY TO CONSENT.MD TO CONSENT. WILL CONTINUE TO FF UP.
[2022-04-06 16:00] VITALS: BP 103/46
[2022-04-06] MEDS: ACETAMINOPHEN 325 MG TABLET MC PRN ×2 (16:24→23:37)
[2022-04-06] MEDS: ONDANSETRON HCL/PF 4 MG/2 ML VIAL IVP PRN (16:24)
[2022-04-06] MEDS: MIDODRINE HCL (5MG) 5 MG TABLET PO SCH (16:25)
[2022-04-06] MEDS: LORAZEPAM INJ 2 MG/ML VIAL IV PRN (16:25)
[2022-04-06] MEDS: IV NS 0.9% 1,000 ML IV SCH (18:25)
[2022-04-06] MEDS: ASCORBIC ACID 500 MG TABLET GT SCH (18:44)
--- NOTE | 2022-04-06 19:00 | NUR ---
RN/NOTE ALL CARE ENDORSED TO LEAD JAVASCRIPT DEVELOPER RN. ALL VSS. NO SIGNS OF DISTRESS
--- NOTE | 2022-04-06 19:42 | NUR ---
PT RCVD TRACHED WITH SIZE SHILEY 6 ON ORDERED VENT SETTINGS AND RICARDA WELL. TRACH IS PATENT AND SECURED. PT IS AWAKE AND NON VERBAL. ELEVATED HR NOTED . SUCTION PRN ,VENT PLUGGED INTO RED OUTLET WITH ALARMS ON AND AUDIBLE. WILL CONTINUE TO MONITOR T/O SHIFT.
--- NOTE | 2022-04-06 19:45 | NUR ---
CHART CLERK OPENING NOTES PATIENT IN BED AWAKE, A/O X0, NON VERBAL. ON TRACHEOSTOMY CONNECTED TO MECHANICAL VENT SETTINGS, TOLERATING WELL, NO S/SX OF DISTRESS NOTED, HOB ELEVATED, WITH IV ACCESS ON MAILE ML INTACT AND PATENT RUNNING NS AT 100 ML/HR. ON TELEMONITORING CURRENTLY READING ST AT 130. WITH FC DRAINING TO GRAVITY WITH YELLOW COLORED URINE, NEPHROSTOMY TUBE INTACT DRAINING TO BLACK COLORED OUTPUT. SAFETY MEASURES IN PLACE. BED LOCKED AND IN LOWEST POSITION, CALL LIGHT WITHIN REACH. BED ALARM ON, SIDE RAILS UP X2, WILL CONTINUE TO MONITOR THROUGHOUT THE SHIFT.
[2022-04-06 20:00] VITALS: BP 95/55
--- NOTE | 2022-04-06 20:19 | NUR ---
RN NOTE NOTED PT HR HIGH AT 130'S AND DECREASING BP AT 95/55, INFORMED TRAVEL SALES CONSULTANT BRIANNA. ASKED FOR PARAMETERS IN HOLDING METROPOLOL AND CARDIZEM AT THIS TIME. SHE THEN ORDERED TO HOLD METROPOLOL AND ADMINISTER CARDIZEM. ORDER TAKEN AND CARRIED OUT. WILL CONT TO MONITOR PATIENT.
--- NOTE | 2022-04-06 23:37 | NUR ---
RN NOTE NOTED PT TEMPERATURE AT 101.4; TYLENOL GIVEN PRN MEDS FOR FEVER AND COOLING MEASURES PROVIDED. ATIVAN GIVEN WELL FOR INC ANXIETY. WASTED PARTIAL DOSE WITH ADAM MAYFIELD.
[2022-04-07] VITALS: BP 120/63
[2022-04-07] MEDS: BLOOD SUGAR DIAGNOSTIC 1 EACH STRIP IN SCH ×4 (00:26→18:10)
[2022-04-07] MEDS: LORAZEPAM INJ 2 MG/ML VIAL IV PRN (00:27)
--- NOTE | 2022-04-07 00:31 | NUR ---
RN NOTE BS CHECKED AT 86 MG/DL, NO COVERAGE GIVEN PER SLIDING SCALE.
[2022-04-07] MEDS: IV NS 0.9% 1,000 ML IV SCH (03:19)
[2022-04-07 04:00] VITALS: BP 104/54
[2022-04-07] MEDS: LANTHANUM CARBONATE 500 MG TAB.CHEW GT SCH ×3 (04:37→23:23)
[2022-04-07] MEDS: DILTIAZEM HCL 30 MG TABLET GT SCH ×3 (04:41→23:25)
--- NOTE | 2022-04-07 05:00 | NUR ---
RN NOTE BS CHECKED AT 75 MG/DL, NO COVERAGE GIVEN PER SLIDING SCALE.
--- NOTE | 2022-04-07 06:44 | NUR ---
SOFTWARE WRITER CLOSING NOTES PATIENT RESTING, A/O X0, NON VERBAL. ON TRACHEOSTOMY CONNECTED TO MECHANICAL VENT SETTINGS, TOLERATING WELL, NO S/SX OF DISTRESS NOTED, HOB ELEVATED, WITH IV ACCESS ON MAILE ML INTACT AND PATENT RUNNING NS AT 100 ML/HR. ON TELEMONITORING CURRENTLY READING ST WITH BBB AT 109. WITH FC DRAINING TO GRAVITY WITH YELLOW COLORED URINE, NEPHROSTOMY TUBE INTACT DRAINING TO BLACK COLORED OUTPUT. SAFETY MEASURES IN PLACE. ALL DUE MEDS GIVEN, V/S TAKEN AND RECORDED, BED LOCKED AND IN LOWEST POSITION, CALL LIGHT WITHIN REACH. BED ALARM ON, SIDE RAILS UP X2, WILL ENDORSE TO AM SHIFT NURSE.
[2022-04-07 07:17] LABS: BASOPHILS # (AUTO) 0.1 K/uL (0.0-0.2); BASOPHILS % (AUTO) 0.4 % (0.0-2.0); EOSINOPHILS % (AUTO) 2.5 % (0.0-6.0); HEMATOCRIT 23 % (39-51); LYMPHOCYTES # (AUTO) 2.4 K/uL (0.8-4.8); MEAN CORPUSCULAR HGB CONC 30 g/dl (31.0-36.0); MEAN CORPUSCULAR VOLUME 96 fL (80-96); MONOCYTES % (AUTO) 6.8 % (2.0-12.0); NEUTROPHILS # (AUTO) 24.4 K/uL (1.8-8.9); NEUTROPHILS % (AUTO) 82.3 % (43.0-81.0); PLATELET COUNT (AUTO) 346 K/uL (150-450); RED BLOOD CELL COUNT(AUTO) 2.37 MIL/uL (4.5-6.0); WHITE BLOOD COUNT (AUTO) 29.6 K/uL (4.3-11.0)
--- NOTE | 2022-04-07 07:20 | NUR ---
RN NOTE RECEIVED PATIENT IN BED OBTUNDED,NONVERBAL,ON MECHANICAL VENT, PRESCRIBED,HR 109.RIGHT UPPER EXTREMITY CONTRACTED,ON G-TUBE FEEDING NEPRO 45CC/HR FOR 20 HOURS.CHECKED PLACEMENT,IN PLACE NO RESIDUAL NOTED,KNUTSON CATH IN PLACE URINE DRAINING YELLOW BY GRAVITY,NEPHROSTOMY IN PLACE,WITH BLACK DRAINAGE,IV SITE IS LEFT UPPER MID LINE IN PLACE,IV NS 100CC/HR RUNNING,SAFETY MEASURE IMPLEMENT,HEAD OF THE BED ELEVATED,LEFT HAND SOFT RESTRAIN IN PLACE WILL CHECK EVERY 15MINS FOR SKIN BREAKDOWN,CIRCULATION,BED IN LOW POSITION AND LOCKED,CONTINUE TO MONITOR.
[2022-04-07 07:27] LABS: CALCIUM, SERUM 9.9 mg/dL (8.5-10.1); POTASSIUM 4.8 mmol/L (3.5-5.1)
[2022-04-07 07:38] LABS: HEMOGLOBIN 6.9 g/dL (13.5-17.5)
[2022-04-07] MEDS: PANTOPRAZOLE 40 MG/PACK PACK NG SCH ×2 (07:47→20:07)
--- NOTE | 2022-04-07 07:52 | NUR ---
RN NOTE RECEIVED CRITICAL LAB HEMOGLOBIN 6.9 HEMATOCRIT 23 NOTIFIED CHATA SÁNCHEZ CONTINUE TO MONITOR.
[2022-04-07 08:00] VITALS: BP 102/55
--- NOTE | 2022-04-07 08:13 | NUR ---
RN NOTE BUN [address] KOENIG HE SAID WILL COORDINATE WITH CLEANER WALL CONTINUE TO MONITOR.
[2022-04-07] MEDS: LINEZOLID 600 MG TABLET PO SCH ×2 (08:43→23:23)
[2022-04-07] MEDS: BUMETANIDE (1 MG) 1 MG TABLET GT SCH (08:43)
[2022-04-07] MEDS: MIDODRINE HCL (5MG) 5 MG TABLET PO SCH ×3 (08:43→17:38)
[2022-04-07] MEDS: MULTIVITAMINS,THERAGRAN 1 UDTAB TABLET GT SCH (08:43)
[2022-04-07] MEDS: DAKINS QUARTER STRENGTH (0.125%) 480 ML BOTTLE TOP SCH (08:45)
[2022-04-07] MEDS: THERAHONEY GEL 1.5 OZ TUBE TP SCH (08:45)
[2022-04-07] MEDS: MEROPENEM 500 MG in IV NS 0.9% 50 ML IV SCH ×2 (08:53→23:25)
[2022-04-07] MEDS: METOPROLOL TARTRATE 25 MG TABLET GT SCH ×2 (09:00→23:41)
[2022-04-07] MEDS ORDERED: IV NS 0.9% 1,000 ML IV PRN (09:38)
[2022-04-07] MEDS: LEVOFLOXACIN 500 MG /D5W 100ML 500 MG in PREMIX 1 EA IV SCH (09:39)
[2022-04-07] MEDS: IV 1/2NS 1000 ML 1,000 ML IV PRN (11:31)
[2022-04-07 12:00] VITALS: BP 115/67
[2022-04-07 16:00] VITALS: BP 110/64
[2022-04-07] MEDS: ASCORBIC ACID 500 MG TABLET GT SCH (17:38)
[2022-04-07 18:28] LABS: HEMOGLOBIN 7.3 g/dL (13.5-17.5)
--- NOTE | 2022-04-07 18:45 | NUR ---
RN NOTE PATIENT REMAINS ON CONTRACTED,OBTUNDED ON MEACHANICAL VENT,HEMOGLOBIN 7.3 HEMATOCRIT 24,ALL DUE MEDS GIVEN MD ORDERED KEPT CLEAN AND DRY,REPOSITIONED EVERY 2 HOURS,HEAD OF THE BED ELEVATED ALL THE TIME,WOUND TREATMENT DONE,ALL NEEDS MET WILL ENDORSE NEXT COMING SHIFT FOR CONTINUATION OF CARE.
--- NOTE | 2022-04-07 19:15 | NUR ---
RN NOTE RECEIVED PATIENT IN BED, OBTUNDED, IN NO ACUTE DISTRESS, ON TRACH SHILEY#6 TO MECHANICAL VENT WITH SETTINGS PRESCRIBED: AC 16, TV 400, FIO2 35%, PEEP 5, SATURATION AT 97%, ST ON THE MONITOR, HR IS 135. MAILE MIDLINE PATENT AND FLUSHING WELL WITH 1/2 NS AT 100 ML/HR. KNUTSON CATH DRAINING TO A CLEAR, YELLOW OUTPUT. NEPHROSTOMY TUBE INTACT. R SOFT WRIST RESTRAINTS IN PLACE, SKIN AND CIRCULATION CHECKED AND ARE WNL. SAFETY MEASURES IN PLACE, BED IS LOCKED AND AT LOWEST POSITION, BED ALARM ON, SIDE RAILS UP X 2, CALL LIGHT WITHIN REACH OF PATIENT. WILL CONT TO MONITOR AND REASSESS.
[2022-04-07 20:00] VITALS: BP 134/65
[2022-04-07] MEDS: HYDROCODONE/APAP 5/325MG TABLET GT PRN (21:25)
[2022-04-07 22:21] LABS: BAND % (MANUAL) 8 % (0.0-5.0); EOSINOPHILS % (MANUAL) 3 % (0-4); LYMPHOCYTES % (MANUAL) 7 % (16-48); MONOCYTES % (MANUAL) 3 % (0-11.0); NEUTROPHILS % (MANUAL) 79 (42-76)
[2022-04-08] VITALS (8 sets, daily range): BP systolic 93–129; BP diastolic 48–67
[2022-04-08] MEDS: BLOOD SUGAR DIAGNOSTIC 1 EACH STRIP IN SCH ×5 (00:59→23:49)
[2022-04-08] MEDS: IV 1/2NS 1000 ML 1,000 ML IV PRN (04:45)
[2022-04-08] MEDS: LANTHANUM CARBONATE 500 MG TAB.CHEW GT SCH ×3 (06:00→22:05)
[2022-04-08] MEDS: DILTIAZEM HCL 30 MG TABLET GT SCH ×3 (06:01→22:05)
[2022-04-08 06:21] LABS: CREATININE 2.4 mg/dL (0.6-1.3); POTASSIUM 4.5 mmol/L (3.5-5.1)
[2022-04-08] MEDS: NEPRO 1,000 ML BOTTLE GT PRN (07:10)
--- NOTE | 2022-04-08 07:36 | NUR ---
RN OPENING NOTE RECEIVED PATIENT IN BED, OBTUNDED, IN NO ACUTE DISTRESS, ON TRACH SHILEY#6 TO MECHANICAL VENT WITH SETTINGS PRESCRIBED: AC 16, TV 400, FIO2 35%, PEEP 5, SATURATION AT 97%, ST ON THE MONITOR, HR IS ABOVE 100 BPM. MAILE MIDLINE PATENT AND FLUSHING WELL WITH 1/2 NS AT 100 ML/HR. KNUTSON CATH DRAINING TO A CLEAR, YELLOW OUTPUT. NEPHROSTOMY TUBE INTACT. R SOFT WRIST RESTRAINTS IN PLACE, SKIN AND CIRCULATION CHECKED AND ARE WNL. SAFETY MEASURES IN PLACE, BED IS LOCKED AND AT LOWEST POSITION, BED ALARM ON, SIDE RAILS UP X 2, CALL LIGHT WITHIN REACH OF PATIENT. WILL CONTTINUE PLAN OF CARE AND ANTICIPATE NEEDS.
[2022-04-08] MEDS: PANTOPRAZOLE 40 MG/PACK PACK NG SCH ×2 (07:52→19:49)
[2022-04-08] MEDS: MEROPENEM 500 MG in IV NS 0.9% 50 ML IV SCH ×2 (08:35→22:04)
[2022-04-08] MEDS: MIDODRINE HCL (5MG) 5 MG TABLET PO SCH ×3 (08:35→18:59)
[2022-04-08] MEDS: MULTIVITAMINS,THERAGRAN 1 UDTAB TABLET GT SCH (08:36)
[2022-04-08] MEDS: BUMETANIDE (1 MG) 1 MG TABLET GT SCH (08:36)
[2022-04-08] MEDS: LINEZOLID 600 MG TABLET PO SCH ×2 (08:36→22:05)
[2022-04-08] MEDS: METOPROLOL TARTRATE 25 MG TABLET GT SCH ×2 (08:36→22:05)
[2022-04-08] MEDS: THERAHONEY GEL 1.5 OZ TUBE TP SCH (08:37)
[2022-04-08] MEDS: DAKINS QUARTER STRENGTH (0.125%) 480 ML BOTTLE TOP SCH (08:37)
[2022-04-08 08:45] LABS: BASOPHILS % (AUTO) 0.2 % (0.0-2.0); EOSINOPHILS % (AUTO) 0.9 % (0.0-6.0); HEMATOCRIT 21 % (39-51); LYMPHOCYTES # (AUTO) 1.9 K/uL (0.8-4.8); LYMPHOCYTES % (AUTO) 6.2 % (20.0-44.0); MEAN CORPUSCULAR HGB CONC 33 g/dl (31.0-36.0); MEAN CORPUSCULAR VOLUME 93 fL (80-96); MONOCYTES # (AUTO) 1.6 K/uL (0.1-1.30); MONOCYTES % (AUTO) 5.2 % (2.0-12.0); NEUTROPHILS # (AUTO) 27.6 K/uL (1.8-8.9); NEUTROPHILS % (AUTO) 87.5 % (43.0-81.0); PLATELET COUNT (AUTO) 326 K/uL (150-450); RED BLOOD CELL COUNT(AUTO) 2.25 MIL/uL (4.5-6.0)
[2022-04-08 08:56] LABS: HEMOGLOBIN 6.8 g/dL (13.5-17.5); WHITE BLOOD COUNT (AUTO) 31.5 K/uL (4.3-11.0)
[2022-04-08 12:23] LABS: BAND % (MANUAL) 5 % (0.0-5.0); LYMPHOCYTES % (MANUAL) 3 % (16-48); MONOCYTES % (MANUAL) 2 % (0-11.0); NEUTROPHILS % (MANUAL) 90 (42-76)
[2022-04-08 15:54] LABS: HEMOGLOBIN 6.8 g/dL (13.5-17.5)
--- NOTE | 2022-04-08 18:00 | NUR ---
RN NOTE CALLED LAB TO ASK ABOUT RBC, THEY SAID THEY ARE NOT READY YET. AND WILL LET US KNOW ONCE IT'S READY.
[2022-04-08] MEDS: ASCORBIC ACID 500 MG TABLET GT SCH (18:55)
[2022-04-08] MEDS: MICAFUNGIN SODIUM 100 MG in IV NS 0.9% 100 ML IV SCH (18:59)
--- NOTE | 2022-04-08 19:15 | NUR ---
RN NOTE RECEIVED PATIENT IN BED, OBTUNDED, IN NO ACUTE DISTRESS, ON TRACH SHILEY#6 TO MECHANICAL VENT WITH SETTINGS PRESCRIBED: AC 16, TV 400, FIO2 35%, PEEP 5, SATURATION AT 100%, SR ON THE MONITOR, HR IS 98. MAILE MIDLINE PATENT AND FLUSHING WELL, SALINE LOCKED. KNUTSON CATH DRAINING TO A CLEAR, YELLOW OUTPUT. NEPHROSTOMY TUBE INTACT. R SOFT WRIST RESTRAINTS IN PLACE, SKIN AND CIRCULATION CHECKED AND ARE WNL. SAFETY MEASURES IN PLACE, BED IS LOCKED AND AT LOWEST POSITION, BED ALARM ON, SIDE RAILS UP X 2, CALL LIGHT WITHIN REACH OF PATIENT. WILL CONT TO MONITOR AND REASSESS.
--- NOTE | 2022-04-08 19:40 | NUR ---
RN CLOSING NOTE PATIENT IN BED, EYES OPEN, NON VERBAL. VENT SETTINGS PRESCRIBED: AC 16, TV 400, FIO2 35%, PEEP 5, SATURATION AT 97%, ST ON THE MONITOR, HR IS ABOVE 100 BPM. MAILE MIDLINE PATENT AND FLUSHING WELL. KNUTSON CATH DRAINING TO A CLEAR, YELLOW OUTPUT. NEPHROSTOMY TUBE INTACT. R SOFT WRIST RESTRAINTS IN PLACE, SKIN AND CIRCULATION CHECKED AND ARE WNL. SAFETY MEASURES IN PLACE, BED IS LOCKED AND AT LOWEST POSITION, BED ALARM ON, SIDE RAILS UP X 2, CALL LIGHT WITHIN REACH OF PATIENT. WILL ENDORSE TO BUFFING MACHINE OPERATOR FOR CONTINUITY FO CARE.
[2022-04-08] MEDS: ACETAMINOPHEN 325 MG TABLET MC PRN (19:49)
[2022-04-09] VITALS (7 sets, daily range): BP systolic 125–153; BP diastolic 43–75
[2022-04-09] MEDS: ONDANSETRON HCL/PF 4 MG/2 ML VIAL IVP PRN (00:15)
[2022-04-09] MEDS: DILTIAZEM HCL 30 MG TABLET GT SCH ×3 (04:34→22:11)
[2022-04-09] MEDS: LANTHANUM CARBONATE 500 MG TAB.CHEW GT SCH ×3 (04:35→22:11)
[2022-04-09] MEDS: ACETAMINOPHEN 325 MG TABLET MC PRN (04:43)
[2022-04-09] MEDS: PANTOPRAZOLE 40 MG/PACK PACK NG SCH ×2 (06:45→20:23)
[2022-04-09] MEDS: BLOOD SUGAR DIAGNOSTIC 1 EACH STRIP IN SCH ×3 (06:45→17:33)
[2022-04-09 06:52] LABS: BASOPHILS % (AUTO) 0.1 % (0.0-2.0); EOSINOPHILS % (AUTO) 1.3 % (0.0-6.0); HEMATOCRIT 25 % (39-51); HEMOGLOBIN 8.5 g/dL (13.5-17.5); LYMPHOCYTES # (AUTO) 1.4 K/uL (0.8-4.8); LYMPHOCYTES % (AUTO) 5.3 % (20.0-44.0); MEAN CORPUSCULAR HGB CONC 34 g/dl (31.0-36.0); MEAN CORPUSCULAR VOLUME 89 fL (80-96); MONOCYTES # (AUTO) 1.1 K/uL (0.1-1.30); MONOCYTES % (AUTO) 4.3 % (2.0-12.0); NEUTROPHILS # (AUTO) 23.2 K/uL (1.8-8.9); PLATELET COUNT (AUTO) 259 K/uL (150-450)
[2022-04-09 07:19] LABS: CALCIUM, SERUM 8.2 mg/dL (8.5-10.1); CREATININE 1.9 mg/dL (0.6-1.3); POTASSIUM 3.8 mmol/L (3.5-5.1)
--- NOTE | 2022-04-09 07:30 | NUR ---
RN OPENING NOTE PATIENT IN BED, EYES OPEN, NON VERBAL. VENT SETTINGS PRESCRIBED: AC 16, TV 400, FIO2 35%, PEEP 5, SATURATION AT 97%, ST ON THE MONITOR, HR IS ABOVE 100 BPM. MAILE MIDLINE PATENT AND FLUSHING WELL. KNUTSON CATH DRAINING TO A CLEAR, YELLOW OUTPUT. NEPHROSTOMY TUBE INTACT. R SOFT WRIST RESTRAINTS IN PLACE, SKIN AND CIRCULATION CHECKED AND ARE WNL. SAFETY MEASURES IN PLACE, BED IS LOCKED AND AT LOWEST POSITION, BED ALARM ON, SIDE RAILS UP X 2, CALL LIGHT WITHIN REACH OF PATIENT. WILL CONTINUE PLAN OF CARE AND ANTICIPATE NEEDS.
[2022-04-09] MEDS: DAKINS QUARTER STRENGTH (0.125%) 480 ML BOTTLE TOP SCH (08:24)
[2022-04-09] MEDS: THERAHONEY GEL 1.5 OZ TUBE TP SCH (08:24)
[2022-04-09] MEDS: LEVOFLOXACIN 500 MG /D5W 100ML 500 MG in PREMIX 1 EA IV SCH (08:25)
[2022-04-09] MEDS: MEROPENEM 500 MG in IV NS 0.9% 50 ML IV SCH ×2 (08:25→22:11)
[2022-04-09] MEDS: LINEZOLID 600 MG TABLET PO SCH ×2 (08:26→22:12)
[2022-04-09] MEDS: BUMETANIDE (1 MG) 1 MG TABLET GT SCH (08:26)
[2022-04-09] MEDS: MIDODRINE HCL (5MG) 5 MG TABLET PO SCH ×3 (08:26→17:00)
[2022-04-09] MEDS: MULTIVITAMINS,THERAGRAN 1 UDTAB TABLET GT SCH (08:26)
[2022-04-09] MEDS: METOPROLOL TARTRATE 25 MG TABLET GT SCH ×2 (08:27→22:12)
[2022-04-09] MEDS: MICAFUNGIN SODIUM 100 MG in IV NS 0.9% 100 ML IV SCH (15:23)
[2022-04-09] MEDS: ASCORBIC ACID 500 MG TABLET GT SCH (17:33)
--- NOTE | 2022-04-09 18:51 | NUR ---
RN CLOSING NOTE PATIENT IN BED, EYES OPEN, NON VERBAL. VENT SETTINGS PRESCRIBED: AC 16, TV 400, FIO2 35%, PEEP 5, SATURATION AT 97%, ST ON THE MONITOR, HR IS ABOVE 100 BPM. MAILE MIDLINE PATENT AND FLUSHING WELL. KNUTSON CATH DRAINING TO A CLEAR, YELLOW OUTPUT 175 MLS DURING SHIFT. NEPHROSTOMY TUBE INTACT OUTPUT OF 50 MLS DURING SHIFT. R SOFT WRIST RESTRAINTS IN PLACE, SKIN AND CIRCULATION CHECKED AND ARE WNL. SAFETY MEASURES IN PLACE, BED IS LOCKED AND AT LOWEST POSITION, BED ALARM ON, SIDE RAILS UP X 2, CALL LIGHT WITHIN REACH OF PATIENT. WILL ENDORSE TO NIGHTSHIFT FOR CONTINUATION OF CARE.
[2022-04-10] VITALS: BP 134/51
[2022-04-10] MEDS: BLOOD SUGAR DIAGNOSTIC 1 EACH STRIP IN SCH ×4 (00:57→17:53)
[2022-04-10] MEDS: NEPRO 1,000 ML BOTTLE GT PRN (00:58)
[2022-04-10 04:00] VITALS: BP 137/66
[2022-04-10] MEDS: DILTIAZEM HCL 30 MG TABLET GT SCH ×3 (06:41→21:00)
[2022-04-10] MEDS: LANTHANUM CARBONATE 500 MG TAB.CHEW GT SCH ×3 (06:42→20:30)
[2022-04-10 07:18] LABS: CALCIUM, SERUM 8.1 mg/dL (8.5-10.1); CREATININE 1.8 mg/dL (0.6-1.3); POTASSIUM 3.5 mmol/L (3.5-5.1)
[2022-04-10 07:30] LABS: BASOPHILS # (AUTO) 0.1 K/uL (0.0-0.2); BASOPHILS % (AUTO) 0.2 % (0.0-2.0); EOSINOPHILS % (AUTO) 1.3 % (0.0-6.0); HEMATOCRIT 26 % (39-51); HEMOGLOBIN 8.6 g/dL (13.5-17.5); LYMPHOCYTES % (AUTO) 8.8 % (20.0-44.0); MEAN CORPUSCULAR HGB CONC 33 g/dl (31.0-36.0); MEAN CORPUSCULAR VOLUME 92 fL (80-96); MONOCYTES % (AUTO) 8.5 % (2.0-12.0); NEUTROPHILS # (AUTO) 18.9 K/uL (1.8-8.9); NEUTROPHILS % (AUTO) 81.2 % (43.0-81.0); PLATELET COUNT (AUTO) 154 K/uL (150-450); RED BLOOD CELL COUNT(AUTO) 2.84 MIL/uL (4.5-6.0); WHITE BLOOD COUNT (AUTO) 23.2 K/uL (4.3-11.0)
[2022-04-10 08:00] VITALS: BP 105/74
--- NOTE | 2022-04-10 08:00 | NUR ---
UNIVERSITY EXTENSION SPECIALIST NOTE RECEIVED PATIENT IN BED, OBTUNDED, IN NO ACUTE DISTRESS, ON TRACH SHILEY#6 TO MECHANICAL VENT WITH SETTINGS ORDERED SR ON THE MONITOR, HR IS 96 MAILE MIDLINE PATENT AND FLUSHING WELL, SALINE LOCKED. KNUTSON CATH DRAINING TO A CLEAR, YELLOW OUTPUT. NEPHROSTOMY TUBE INTACT. R SOFT WRIST RESTRAINTS IN PLACE, SKIN AND CIRCULATION CHECKED AND ARE WNL. SAFETY MEASURES IN PLACE, BED IS LOCKED AND AT LOWEST POSITION, BED ALARM ON, SIDE RAILS UP X 2, CALL LIGHT WITHIN REACH OF PATIENT. WILL CONT TO MONITOR AND REASSESS. WITH G TUBE FEEDING ORDERED , KEEP HOB ELEVATED AT ALL TIME
[2022-04-10] MEDS: MULTIVITAMINS,THERAGRAN 1 UDTAB TABLET GT SCH (08:30)
[2022-04-10] MEDS: BUMETANIDE (1 MG) 1 MG TABLET GT SCH (08:31)
[2022-04-10] MEDS: PANTOPRAZOLE 40 MG/PACK PACK NG SCH ×2 (08:31→20:29)
[2022-04-10] MEDS: LINEZOLID 600 MG TABLET PO SCH ×2 (08:31→20:29)
[2022-04-10] MEDS: MIDODRINE HCL (5MG) 5 MG TABLET PO SCH ×3 (08:31→17:26)
[2022-04-10] MEDS: METOPROLOL TARTRATE 25 MG TABLET GT SCH ×2 (08:32→21:00)
[2022-04-10] MEDS: MEROPENEM 500 MG in IV NS 0.9% 50 ML IV SCH ×2 (08:32→20:29)
[2022-04-10] MEDS: DAKINS QUARTER STRENGTH (0.125%) 480 ML BOTTLE TOP SCH (08:37)
[2022-04-10] MEDS: THERAHONEY GEL 1.5 OZ TUBE TP SCH (08:45)
--- NOTE | 2022-04-10 09:30 | NUR ---
OPERATIONS DISPATCHER NOTE HD STARTED ORDERED
--- NOTE | 2022-04-10 09:48 | NUR ---
MITTEN STITCHER NOTE NOTED ST HR 140 DURING HD HD NURSE CALLED TO [facility] TO STOP HD IN 10 MIN
--- NOTE | 2022-04-10 10:48 | NUR ---
DELI MANAGER NOTE HD STOPPED HR 122 BP 159\93 NO FLUIDS REMOVED
[2022-04-10 11:21] LABS: EOSINOPHILS % (MANUAL) 1 % (0-4); LYMPHOCYTES % (MANUAL) 12 % (16-48); MONOCYTES % (MANUAL) 10 % (0-11.0); NEUTROPHILS % (MANUAL) 77 (42-76)
[2022-04-10 12:00] VITALS: BP 121/70
[2022-04-10] MEDS: MORPHINE SULFATE INJ 2 MG/ML DISP.SYRIN IV PRN ×2 (12:09→17:21)
--- NOTE | 2022-04-10 12:14 | NUR ---
FORWARD AIR CONTROLLER/AIR OFFICER NOTE RR 52 RT AT BEDSIDE ,RT CHANGED FI02 50% SATURATION 94 % , DR OTERO NOTIFIED ,ORDERED ABG STAT , CHEST X RAY ALSO PER DR OTERO AND DR KOENIG OK TO GIVE MORPHINE 2 MG IVP WILL F\U
--- NOTE | 2022-04-10 12:15 | NUR ---
MARINE FIRER NOTE MORPHINE 2 MG IVP GIVEN BP 121/70 SATURATION 94%
--- NOTE | 2022-04-10 12:19 | NUR ---
NATIONAL PARK RANGER NOTE DR OTERO AT BEDSIDE SEEN PATIENT AWARE ANG AND CHEST XRAY , ORDERED ATIVAN 1 MG TIME ONE IF NOT BETTER POSSIBLE TO TRANSFER TO ICU
[2022-04-10] MEDS ORDERED: LORAZEPAM INJ 2 MG/ML VIAL IV STA (12:21)
--- NOTE | 2022-04-10 12:38 | NUR ---
LIQUEFACTION SUPERVISOR NOTE ATIVAN 1 MG IVP GIVEN, CHANGED FIO2 TO 50% ORDERED BY DR OTERO, JESSICA F\U
--- NOTE | 2022-04-10 12:40 | NUR ---
MUSICIAN INSTRUMENTAL NOTE DR OTERO AWARE THAT MORPHINE GIVEN 2 MG IVP STILL OK TO GIVE ATIVAN ,WILL F\U
--- NOTE | 2022-04-10 13:37 | NUR ---
PROFESSOR OF THEATER NOTE REPORTED TO DR KOENIG THAT BLOOD CS RT HEEL GRAM NEGATIVE ERROL LT HEEL KLEBSIELLA PNEUMONIAE, STATED THAT ID DOCTOR IS COMING WILL CHECK IT OUT
--- NOTE | 2022-04-10 13:50 | NUR ---
TIMBER BUYER NOTE T 102.[address] GUILLERMO OH AT AT BEDSIDE ORDERED OK TO GIVE TYLENOL ORDERED MOTRIN 400 MG VIA G TUBE TIME ONE,AND ORDERED BLOOD CX ,WILL F\U
[2022-04-10] MEDS: ACETAMINOPHEN 325 MG TABLET MC PRN (13:57)
[2022-04-10] MEDS ORDERED: IBUPROFEN 400 MG TABLET GT ONE (14:00)
--- NOTE | 2022-04-10 14:13 | NUR ---
CURRICULUM DESIGNER NOTE TYLENOL MOTRIN VIA G TUBE GIVEN ,COOLING MEASURE PROVIDED WILL MONITOR
[2022-04-10] MEDS: MICAFUNGIN SODIUM 100 MG in IV NS 0.9% 100 ML IV SCH (15:04)
[2022-04-10] MEDS: ONDANSETRON HCL/PF 4 MG/2 ML VIAL IVP PRN (15:05)
--- NOTE | 2022-04-10 15:11 | NUR ---
telecommunications network engineer note noted patent is vomiting, hold g tube feeding at this time Zofran ivp given as ordered
[2022-04-10 16:00] VITALS: BP 91/56
[2022-04-10] MEDS: LORAZEPAM INJ 2 MG/ML VIAL IV PRN (17:20)
[2022-04-10 17:26] LABS: ABG BASE EXCESS -4.7 mmol/L; ABG OXYGEN SATURATION 89.8 % (92.0-98.5); ABG PCO2 27.5 mmHg (35.0-45.0); ABG PH 7.442 (7.350-7.450); ABG PO2 57.7 mmHg (75.0-100.0); AaDO2 231.9 mmHg; COHb 0.4 % (0.5-1.5); MetHb 0.3 % (0.0-1.5); O2Hb 89.2 % (94.0-97.0); PEEP,BG 5 cm H2O; SITE, ABG Left Radial; VENT MODE, BG AC 45%; VT, ABG 400 mL
[2022-04-10] MEDS: ASCORBIC ACID 500 MG TABLET GT SCH (17:26)
--- NOTE | 2022-04-10 17:32 | NUR ---
telecommunicator supervisor note blood sugar 59 mg\dl d50% given as ordered also rr 33 will cont to monitor
[2022-04-10] MEDS: DEXTROSE 50%-WATER 50 ML DISP.SYRIN IV PRN (17:39)
--- NOTE | 2022-04-10 18:13 | NUR ---
television picture tube rebuilder note per dr franz if clinically does not settle down we will transfer to the ICU for closer observation. with propofol drip to start
--- NOTE | 2022-04-10 18:36 | NUR ---
UNDER CUTTING MACHINE OPERATOR NOTE PATIENT IN BED WITH TRACH TO VENT SETTING ORDERED FIO2 50% AT THIS TIME, SATURATION 95%, TRACH SUCTION DONE ,AFTER ATIVAN AND MORPHINE GIVEN RR 33 AT THIS TIME WILL MONITOR CLOSELY FOR RESPIRATORY DISTRESS, WITH KNUTSON CATH TO GRAVITY WITH YELLOW COLOR URINE ,RT SIDE NECROSECTOMY IN PLACE WITH DARK TORRES URINE NOTED STILL WITH RESTRAIN ADS ORDERED, UNABLE TO REMOVE AT RISK TO REMOVE ALL LINES, WITH G TUBE FEEDING ORDERED , KEEP HOB ELEVATED WILL MONITOR CLOSELY
[2022-04-10 20:00] VITALS: BP 88/54
--- NOTE | 2022-04-10 21:13 | NUR ---
RN NOTE DILTIAZEM AND METOPROLOL SCHEDULED FOR 2100 HELD D/T PT'S BP OF 88/54 HR 86.
--- NOTE | 2022-04-10 21:17 | NUR ---
RN NOTE MANUAL BP TAKEN 90/62
--- NOTE | 2022-04-10 22:59 | NUR ---
EPIC CADENCE ANALYST OPENING NOTE PT RECEIVED IN BED, OBTUNDED, OPENS EYES, NON-VERBAL. ON SHILEY #6, AC 16, TV 400, FI2O 50%, PEEP 5; CURRENT O2SAT OF 100% AND RR OF 26; PT CURRENTLY TOLERATING VENT SETTINGS. PT ATTACHED TO EXTERNAL MONITOR, SR WITH HR OF 86. PT NOTED TO HAVE KNUTSON AND RIGHT-SIDED NEPHROSTOMY; BOTH ARE INTACT AND PATENT, NO SIGNS OF LEAKING. NEPHROSTOMY IS DRAINING URINE THAT IS TORRES IN COLOR; KNUTSON IS DRAINING CLEAR AND YELLOW URINE. HD CATHETER ON RIGHT FEMORAL, DRESSING IS C/D/I. GTD C/D/I; PT RECEIVES NEPRO AT 45 ML/HR X20HRS; GTF HAS BEEN TURNED OFF AT 04/10. HILDA AND MAILE MIDLINE INTACT AND PATENT, FLUSHES EASILY WITH NO RESISTANCE. BED IN LOWEST POSITION, CALL LIGHT WITHIN REACH, SIDE RAILS UP X3. WILL CONTINUE TO MONITOR THROUGHOUT THE NIGHT. Addendum: 04/10/22 at 2307 by PRINCESS HARTLEY RN PT NOTED TO HAVE MITTEN ON LEFT HAND; NO S/S OF IMPAIRED SKIN OR CIRCULATION; WILL PROVIDE PT WITH RELEASE OF MITTEN, HYGIENE.
[2022-04-11] VITALS: BP 87/59
--- NOTE | 2022-04-11 00:06 | NUR ---
RN NOTE MANUAL BP TAKEN 90/70
[2022-04-11] MEDS: BLOOD SUGAR DIAGNOSTIC 1 EACH STRIP IN SCH ×5 (00:08→23:45)
[2022-04-11 04:00] VITALS: BP 110/65
[2022-04-11] MEDS: DILTIAZEM HCL 30 MG TABLET GT SCH ×3 (05:00→21:11)
[2022-04-11] MEDS: LANTHANUM CARBONATE 500 MG TAB.CHEW GT SCH ×3 (05:01→21:10)
--- NOTE | 2022-04-11 06:04 | NUR ---
RN NOTE DILTIAZEM SCHEDULED FOR 0500 NOT ADMINISTERED BP 110/65 HR 82.
[2022-04-11] MEDS: ONDANSETRON HCL/PF 4 MG/2 ML VIAL IVP PRN ×2 (06:15→19:35)
--- NOTE | 2022-04-11 06:15 | NUR ---
RN NOTE PT VOMITED. ZOFRAN ADMINISTERED. WILL MONITOR FOR EFFECTIVENESS.
--- NOTE | 2022-04-11 07:16 | NUR ---
PRODUCTION PLANNING MANAGER CLOSING NOTE PT REMAINS IN BED, OBTUNDED, OPENS EYES, NON-VERBAL. REMAINS ON SAME VENT SETTINGS; PT TOLERATED VENT SETTINGS WELL; O2SAT RANGED FROM 99%- 100% AND RR RANGED FROM 20S AND GOT HIGH 30S WHEN CLEANING. PT ATTACHED TO EXTERNAL MONITOR, SR WITH HR 82-89. KNUTSON AND RIGHT-SIDED NEPHROSTOMY; BOTH ARE INTACT AND PATENT, NO SIGNS OF LEAKING. NEPHROSTOMY IS DRAINING URINE THAT IS TORRES IN COLOR AMD SLIGHTLY THICK IN CONSISTENCY; KNUTSON IS DRAINING CLEAR AND YELLOW URINE. HD CATHETER ON RIGHT FEMORAL, DRESSING IS C/D/I. GTD C/D/I; PT NOTED TO HAVE VOMITING; PT WAS GIVEN ZOFRAN. HILDA AND MAILE MIDLINE INTACT AND PATENT, FLUSHES EASILY WITH NO RESISTANCE. LEFT HAND MITTEN REMAINS IN PLACE. ALL DUE MEDS ADMINISTERED DURING THE NIGHT. BED IN LOWEST POSITION, CALL LIGHT WITHIN REACH, SIDE RAILS UP X3. WILL ENDORSE TO DAYSHIFT NURSE TO CONINTUE CARE.
[2022-04-11 07:31] LABS: BASOPHILS % (AUTO) 0.1 % (0.0-2.0); EOSINOPHILS % (AUTO) 1.6 % (0.0-6.0); HEMATOCRIT 28 % (39-51); HEMOGLOBIN 8.9 g/dL (13.5-17.5); LYMPHOCYTES # (AUTO) 1.8 K/uL (0.8-4.8); MEAN CORPUSCULAR HGB CONC 32 g/dl (31.0-36.0); MEAN CORPUSCULAR VOLUME 92 fL (80-96); MONOCYTES # (AUTO) 2.3 K/uL (0.1-1.30); MONOCYTES % (AUTO) 6.2 % (2.0-12.0); NEUTROPHILS # (AUTO) 32.2 K/uL (1.8-8.9); NEUTROPHILS % (AUTO) 87.1 % (43.0-81.0); PLATELET COUNT (AUTO) 135 K/uL (150-450); RED BLOOD CELL COUNT(AUTO) 3.04 MIL/uL (4.5-6.0)
[2022-04-11 08:00] VITALS: BP 92/57
[2022-04-11] MEDS: MIDODRINE HCL (5MG) 5 MG TABLET PO SCH ×3 (08:02→17:42)
[2022-04-11] MEDS: PANTOPRAZOLE 40 MG/PACK PACK NG SCH (08:02)
[2022-04-11] MEDS: MULTIVITAMINS,THERAGRAN 1 UDTAB TABLET GT SCH (08:02)
[2022-04-11] MEDS: LINEZOLID 600 MG TABLET PO SCH ×2 (08:02→21:11)
[2022-04-11] MEDS: METOPROLOL TARTRATE 25 MG TABLET GT SCH ×2 (09:00→21:11)
[2022-04-11] MEDS: BUMETANIDE (1 MG) 1 MG TABLET GT SCH (09:00)
[2022-04-11] MEDS: ALBUMIN 25% 25 GM in PREMIX 1 EA IV PRN (09:07)
[2022-04-11 09:13] LABS: BAND % (MANUAL) 6 % (0.0-5.0); LYMPHOCYTES % (MANUAL) 4 % (16-48); METAMYELOCYTES % 1 % (0-0); MONOCYTES % (MANUAL) 4 % (0-11.0); MYELOCYTES % 1 % (0-0); NEUTROPHILS % (MANUAL) 84 (42-76)
[2022-04-11 09:50] LABS: CALCIUM, SERUM 8.4 mg/dL (8.5-10.1); CREATININE 2.5 mg/dL (0.6-1.3); POTASSIUM 3.8 mmol/L (3.5-5.1)
[2022-04-11 12:00] VITALS: BP 98/54
[2022-04-11] MEDS: PANTOPRAZOLE 40 MG VIAL IV SCH ×2 (12:08→21:10)
[2022-04-11] MEDS: MEROPENEM 500 MG in IV NS 0.9% 50 ML IV SCH ×2 (12:08→21:16)
[2022-04-11] MEDS: LEVOFLOXACIN 500 MG /D5W 100ML 500 MG in PREMIX 1 EA IV SCH (12:08)
[2022-04-11] MEDS: DAKINS QUARTER STRENGTH (0.125%) 480 ML BOTTLE TOP SCH (12:09)
[2022-04-11] MEDS: THERAHONEY GEL 1.5 OZ TUBE TP SCH (12:09)
[2022-04-11] MEDS ORDERED: MISCELLANEOUS MED 1 EA EA XX ONE (14:00)
[2022-04-11] MEDS ORDERED: DOSING PER PHARMACY-AMIKACI IV XX PRN (14:30)
[2022-04-11] MEDS ORDERED: AMIKACIN 500 MG in IV D5W 100 ML IV ONE (15:00)
[2022-04-11 16:00] VITALS: BP 100/51
[2022-04-11] MEDS: ASCORBIC ACID 500 MG TABLET GT SCH (17:42)
[2022-04-11] MEDS: MICAFUNGIN SODIUM 100 MG in IV NS 0.9% 100 ML IV SCH (17:43)
--- NOTE | 2022-04-11 18:53 | NUR ---
RN NOTE PT RESTING IN BED, TRACH IN PLACE WITH VENT SETTINGS TOLERATED WELL. PT NOT IN DISTRESS. CONT IN G TUBE FEEDING NEPRO @45CC/HR. WITH IV ACCESS ON MAILE AND HILDA MIDLINE IN PLACE AND PATENT. PT S/P POST HD WITH 1L FLUIDS REMOVED. DUE MEDICATIONS GIVEN. AM/PM CARE DONE. SAFETY AND ASPIRATION PREC FOLLOWED.
--- NOTE | 2022-04-11 19:36 | NUR ---
RN NOTE PT NOT TOLERATING FEEDING AND IS FOUND TO BE VOMITING. PT ADMINISTERED ZOFRAN. WILL MONITOR FOR EFFECTIVENESS.
[2022-04-11 20:00] VITALS: BP 122/47
--- NOTE | 2022-04-11 21:33 | NUR ---
BENCH MANAGER OPENING NOTE PT RECEIVED IN BED, OBTUNDED. ON SHILEY #6, AC 16, TV 400, FI2O 50%, PEEP 5; CURRENT O2SAT OF 100% AND RR OF 27; PT CURRENTLY TOLERATING VENT SETTINGS. PT ATTACHED TO EXTERNAL MONITOR, ST WITH HR OF 109. PT NOTED TO HAVE KNUTSON AND RIGHT-SIDED NEPHROSTOMY; BOTH ARE INTACT AND PATENT, NO SIGNS OF LEAKING. NEPHROSTOMY IS DRAINING URINE THAT IS TORRES IN COLOR; KNUTSON IS DRAINING CLEAR AND YELLOW URINE. HD CATHETER ON RIGHT FEMORAL, DRESSING IS C/D/I. GTD C/D/I; PT RECEIVES NEPRO AT 45 ML/HR X20HRS; NO RESIDUALS NOTED BUT PT FOUND TO BE VOMITING; ZOFRAN ADMINISTERED; GTF TURNED OFF AT 2020 AND WILL TURN BACK ON AT 0020. HILDA AND MAILE MIDLINE INTACT AND PATENT, FLUSHES EASILY WITH NO RESISTANCE. BED IN LOWEST POSITION, CALL LIGHT WITHIN REACH, SIDE RAILS UP X3; MEROPENEM CURRENTLY INFUSING AT 100 ML/HR. LEFT HAND MITTEN IN PLACE; NO SIGNS OF IMPAIRED SKIN OR CIRCULATION. WILL CONTINUE TO MONITOR THROUGHOUT THE NIGHT.
--- NOTE | 2022-04-11 22:37 | NUR ---
RN NOTE REPORT GIVEN TO ADAM THAKUR FOR HAMILTON.
[2022-04-11] MEDS: NEPRO 1,000 ML BOTTLE GT PRN (23:44)
[2022-04-12] VITALS: BP 102/47
--- NOTE | 2022-04-12 00:10 | NUR ---
RN NOTE BS CHECKED T 64 MG/DL, NO COVERAGE GIVEN PER SLIDING SCALE. RESUMED NGT FEEDING AT THIS TIME, NO RESIDUAL NOTED. WILL CONT TO MONITOR PATIENT.
[2022-04-12 04:00] VITALS: BP 130/59
[2022-04-12] MEDS: LANTHANUM CARBONATE 500 MG TAB.CHEW GT SCH ×3 (04:21→20:23)
[2022-04-12] MEDS: DILTIAZEM HCL 30 MG TABLET GT SCH ×3 (04:21→20:24)
[2022-04-12] MEDS: ACETAMINOPHEN 325 MG TABLET MC PRN (04:21)
[2022-04-12] MEDS ORDERED: AMIKACIN 350 MG in IV D5W 100 ML IV PRN (06:00)
--- NOTE | 2022-04-12 06:00 | NUR ---
ADAM NOTE BS CHECKED T MG/DL, NO COVERAGE GIVEN PER SLIDING SCALE. Addendum: 04/12/22 at 1942 by BLAZE JEAN RN BS CHECKED 92 MG/DL, NO COVERAGE GIVEN PER SLIDING SCALE.
[2022-04-12] MEDS: BLOOD SUGAR DIAGNOSTIC 1 EACH STRIP IN SCH ×3 (06:39→18:03)
[2022-04-12] MEDS: ALBUMIN 25% 25 GM in PREMIX 1 EA IV PRN (06:39)
--- NOTE | 2022-04-12 07:00 | NUR ---
SPRINKLER FITTER APPRENTICE CLOSING NOTE PT REMAINS IN BED, OBTUNDED, OPENS EYES, NON-VERBAL. REMAINS ON SAME VENT SETTINGS; PT TOLERATED VENT SETTINGS WELL; O2SAT AT 98% PT ATTACHED TO EXTERNAL MONITOR, SR WITH HR 85. KNUTSON AND RIGHT-SIDED NEPHROSTOMY; BOTH ARE INTACT AND PATENT, NO SIGNS OF LEAKING. NEPHROSTOMY IS DRAINING URINE THAT IS TORRES IN COLOR, KNUTSON IS DRAINING CLEAR AND YELLOW URINE. HD CATHETER ON RIGHT FEMORAL, DRESSING IS C/D/I. GTD C/D/I; PT NOTED TO HAVE VOMITING; GTUBE FEEDING STOPPED, WITH HILDA AND MAILE MIDLINE INTACT AND PATENT, FLUSHES EASILY WITH NO RESISTANCE. LEFT HAND MITTEN REMAINS IN PLACE. ALL DUE MEDS ADMINISTERED DURING THE NIGHT. BED IN LOWEST POSITION, CALL LIGHT WITHIN REACH, SIDE RAILS UP X3. WITH ONGOING HEMODIALYSIS AT THIS TIME, WILL ENDORSE TO DAYSHIFT NURSE.
[2022-04-12 07:02] LABS: BASOPHILS % (AUTO) 0.1 % (0.0-2.0); EOSINOPHILS % (AUTO) 1.6 % (0.0-6.0); HEMATOCRIT 22 % (39-51); HEMOGLOBIN 7.3 g/dL (13.5-17.5); LYMPHOCYTES # (AUTO) 1.4 K/uL (0.8-4.8); MEAN CORPUSCULAR HGB CONC 33 g/dl (31.0-36.0); MEAN CORPUSCULAR VOLUME 91 fL (80-96); MONOCYTES # (AUTO) 1.8 K/uL (0.1-1.30); MONOCYTES % (AUTO) 6.7 % (2.0-12.0); NEUTROPHILS # (AUTO) 23.5 K/uL (1.8-8.9); NEUTROPHILS % (AUTO) 86.6 % (43.0-81.0); PLATELET COUNT (AUTO) 129 K/uL (150-450); RED BLOOD CELL COUNT(AUTO) 2.42 MIL/uL (4.5-6.0); WHITE BLOOD COUNT (AUTO) 27.2 K/uL (4.3-11.0)
--- NOTE | 2022-04-12 07:20 | NUR ---
MEDIC TECHNICIAN OPENING NOTE RECEIVED PATIENT IN BED, OBTUNDED. ON SHILEY #6, AC 16, TV 400, FI2O 50%, PEEP 5; CURRENT O2SAT OF 100% PT CURRENTLY TOLERATING VENT SETTINGS. PT ATTACHED TO EXTERNAL MONITOR READING NSR. PT NOTED TO HAVE KNUTSON AND RIGHT-SIDED NEPHROSTOMY; BOTH ARE INTACT AND PATENT, NO SIGNS OF LEAKING. NEPHROSTOMY IS DRAINING URINE THAT IS TORRES IN COLOR; KNUTSON IS DRAINING CLEAR AND YELLOW URINE. HD CATHETER ON RIGHT FEMORAL, DRESSING IS C/D/I. GTD C/D/I; ON GT FEEDING RUNNING NEPRO AT 45 ML/HR X20HRS; NO RESIDUALS NOTED. HILDA AND MAILE MIDLINE INTACT AND PATENT, FLUSHES EASILY WITH NO RESISTANCE. NOTED WITH LEFT HAND MITTEN IN PLACE; NO SIGNS OF IMPAIRED SKIN OR CIRCULATION, WILL CONTINUE TO ASSESS ACCORDINGLY. PATIENT IS CURRENTLY RECEIVING HEMODIALYSIS. ALL SAFETY MEASURES IN PLACE; BED IN LOWEST LOCKED POSITION, CALL LIGHT WITHIN REACH, SIDE RAILS UP X3. WILL CONTINUE TO MONITOR THROUGHOUT SHIFT.
[2022-04-12 07:28] LABS: CALCIUM, SERUM 8.2 mg/dL (8.5-10.1); CREATININE 1.9 mg/dL (0.6-1.3); POTASSIUM 3.6 mmol/L (3.5-5.1)
[2022-04-12 08:00] VITALS: BP 96/55
[2022-04-12] MEDS: METOPROLOL TARTRATE 25 MG TABLET GT SCH ×2 (09:00→20:23)
--- NOTE | 2022-04-12 09:20 | NUR ---
RN NOTE HEMODIALYSIS COMPLETED, TOLERATED WELL BY PATIENT WITH 1L REMOVED. CURRENT BP IS 102/61 AND HR OF 80. NO SOB OR ANY RESPIRATORY DISTRESS NOTED AT THE TIME. BREATHING UNLABORED. ALL NEEDS ATTENDED.
[2022-04-12] MEDS: MULTIVITAMINS,THERAGRAN 1 UDTAB TABLET GT SCH (09:23)
[2022-04-12] MEDS: BUMETANIDE (1 MG) 1 MG TABLET GT SCH (09:23)
[2022-04-12] MEDS: PANTOPRAZOLE 40 MG VIAL IV SCH ×2 (09:23→20:23)
[2022-04-12] MEDS: MEROPENEM 500 MG in IV NS 0.9% 50 ML IV SCH ×2 (09:23→20:22)
[2022-04-12] MEDS: LINEZOLID 600 MG TABLET PO SCH ×2 (09:23→20:23)
[2022-04-12] MEDS: MIDODRINE HCL (5MG) 5 MG TABLET PO SCH ×3 (09:24→17:40)
[2022-04-12] MEDS: THERAHONEY GEL 1.5 OZ TUBE TP SCH (09:26)
[2022-04-12] MEDS: DAKINS QUARTER STRENGTH (0.125%) 480 ML BOTTLE TOP SCH (09:26)
[2022-04-12 12:00] VITALS: BP 98/58
[2022-04-12] MEDS: MICAFUNGIN SODIUM 100 MG in IV NS 0.9% 100 ML IV SCH (15:25)
[2022-04-12 16:00] VITALS: BP 109/68
[2022-04-12] MEDS: ASCORBIC ACID 500 MG TABLET GT SCH (17:40)
--- NOTE | 2022-04-12 19:42 | NUR ---
PLANT CONTROL OPERATOR OPENING NOTE RECEIVED PT IN BED, OBTUNDED. ON SHILEY #6, AC 16, TV 400, FI2O 50%, PEEP 5; CURRENT O2SAT OF 98% PT CURRENTLY TOLERATING VENT SETTINGS. PT ATTACHED TO EXTERNAL MONITOR, SR AT 97. PT NOTED TO HAVE KNUTSON AND RIGHT-SIDED NEPHROSTOMY; BOTH ARE INTACT AND PATENT, NO SIGNS OF LEAKING. HD CATHETER ON RIGHT FEMORAL, DRESSING IS C/D/I. GTD C/D/I; PT RECEIVES NEPRO AT 45 ML/HR X20HRS; NO RESIDUALS NOTED.WITH HILDA AND MAILE MIDLINE INTACT AND PATENT, FLUSHES EASILY WITH NO RESISTANCE. BED IN LOWEST AND LOCKED POSITION, CALL LIGHT WITHIN REACH, SIDE RAILS UP X3; LEFT HAND MITTEN IN PLACE; NO SIGNS OF IMPAIRED SKIN OR CIRCULATION. WILL CONTINUE TO MONITOR THROUGHOUT THE SHIFT.
--- NOTE | 2022-04-12 19:49 | NUR ---
RN CLOSING NOTES NO SIGNIFICANT CHANGES IN PATIENT CONDITION THROUGHOUT SHIFT. PATIENT IN BED, OBTUNDED. CURRENT O2SAT OF 100% PT AND CURRENTLY TOLERATING VENT SETTINGS. PT NOTED TO HAVE KNUTSON AND RIGHT-SIDED NEPHROSTOMY; BOTH ARE INTACT AND PATENT, NO SIGNS OF LEAKING. HD CATHETER ON RIGHT FEMORAL, DRESSING IS C/D/I. GTD C/D/I; ON GT FEEDING RUNNING NEPRO AT 45 ML/HR X20HRS; NO RESIDUALS NOTED. HILDA AND MAILE MIDLINE INTACT AND PATENT, FLUSHES EASILY WITH NO RESISTANCE. NOTED WITH LEFT HAND MITTEN IN PLACE; NO SIGNS OF IMPAIRED SKIN OR CIRCULATION THROUGHOUT SHIFT.ALL DUE MEDS GIVEN ORDERED. KEPT PATIENT CLEAN DRY AND COMFORTABLE. ALL NEEDS ATTENDED. WOUND CARE RENDERED AND TOELRATED WELL. ALL SAFETY MEASURES IN PLACE; BED IN LOWEST LOCKED POSITION, CALL LIGHT WITHIN REACH, SIDE RAILS UP X3. ENDORSED TO SALES AND PRODUCTION MANAGER NURSE FOR [facility].
[2022-04-12 20:00] VITALS: BP 160/77
[2022-04-13] VITALS: BP 115/65
--- NOTE | 2022-04-13 | NUR ---
RN NOTE BS CHECKED 84 MG/DL, NO COVERAGE GIVEN PER SLIDING SCALE. RESUMED GT FEEDING OF NEPHRO 1.8 @ 45 ML/HR AT THIS TIME.
[2022-04-13] MEDS: BLOOD SUGAR DIAGNOSTIC 1 EACH STRIP IN SCH ×4 (01:05→18:39)
[2022-04-13 04:00] VITALS: BP 108/64
[2022-04-13] MEDS: DILTIAZEM HCL 30 MG TABLET GT SCH ×3 (05:02→21:30)
[2022-04-13] MEDS: LANTHANUM CARBONATE 500 MG TAB.CHEW GT SCH ×3 (05:02→21:30)
--- NOTE | 2022-04-13 06:10 | NUR ---
RN NOTE BS CHECKED 108 MG/DL, NO COVERAGE GIVEN PER SLIDING SCALE. PATIENT ABLE TO TOLERATE GT FEEDING OF NEPHRO 1.8 @ 45 ML/HR, NO RESIDUAL NOTED. WILL CONT TO MONITOR.
--- NOTE | 2022-04-13 07:10 | NUR ---
OPENING NURSING NOTE RECEIVED PT IN BED, OBTUNDED. ON SHILEY #6, AC 16, TV 400, FI2O 50%, PEEP 5; WITH O2SAT OF 100% PT CURRENTLY TOLERATING VENT SETTINGS. PT ATTACHED TO EXTERNAL MONITOR, SR AT 76. PT NOTED TO HAVE KNUTSON AND RIGHT-SIDED NEPHROSTOMY; BOTH ARE INTACT AND PATENT, NO SIGNS OF LEAKING. HD CATHETER ON RIGHT FEMORAL, DRESSING IS C/D/I. GTD C/D/I; PT RECEIVES NEPRO AT 45 ML/HR X20HRS; NO RESIDUALS NOTED.WITH HILDA AND MAILE MIDLINE INTACT AND PATENT, FLUSHES EASILY WITH NO RESISTANCE. BED IN LOWEST AND LOCKED POSITION, CALL LIGHT WITHIN REACH, SIDE RAILS UP X3; LEFT HAND MITTEN IN PLACE; NO SIGNS OF IMPAIRED SKIN OR CIRCULATION. WILL CONTINUE TO MONITOR THROUGHOUT THE SHIFT.
[2022-04-13 07:12] LABS: BASOPHILS % (AUTO) 0.1 % (0.0-2.0); EOSINOPHILS % (AUTO) 1.7 % (0.0-6.0); HEMATOCRIT 25 % (39-51); HEMOGLOBIN 8.1 g/dL (13.5-17.5); LYMPHOCYTES % (AUTO) 8.2 % (20.0-44.0); MEAN CORPUSCULAR HGB CONC 32 g/dl (31.0-36.0); MEAN CORPUSCULAR VOLUME 92 fL (80-96); MONOCYTES # (AUTO) 1.8 K/uL (0.1-1.30); MONOCYTES % (AUTO) 7.3 % (2.0-12.0); NEUTROPHILS % (AUTO) 82.7 % (43.0-81.0); PLATELET COUNT (AUTO) 117 K/uL (150-450); WHITE BLOOD COUNT (AUTO) 24.1 K/uL (4.3-11.0)
[2022-04-13 07:39] LABS: CALCIUM, SERUM 8.3 mg/dL (8.5-10.1); CREATININE 1.8 mg/dL (0.6-1.3); POTASSIUM 3.4 mmol/L (3.5-5.1)
[2022-04-13 08:00] VITALS: BP 116/65
[2022-04-13] MEDS: BUMETANIDE (1 MG) 1 MG TABLET GT SCH (09:26)
[2022-04-13] MEDS: PANTOPRAZOLE 40 MG VIAL IV SCH ×2 (09:26→21:30)
[2022-04-13] MEDS: MEROPENEM 500 MG in IV NS 0.9% 50 ML IV SCH ×2 (09:26→21:29)
[2022-04-13] MEDS: LINEZOLID 600 MG TABLET PO SCH ×2 (09:26→21:29)
[2022-04-13] MEDS: METOPROLOL TARTRATE 25 MG TABLET GT SCH ×2 (09:27→21:30)
[2022-04-13] MEDS: MIDODRINE HCL (5MG) 5 MG TABLET PO SCH ×3 (09:28→16:57)
[2022-04-13] MEDS ORDERED: POTASSIUM CHLORIDE 20 MEQ POWDER PACKET GT SCH ×2 (10:00→13:00)
[2022-04-13] MEDS: ACETAMINOPHEN 325 MG TABLET MC PRN (11:10)
[2022-04-13 11:57] LABS: BAND % (MANUAL) 3 % (0.0-5.0); BASOPHILS % (MANUAL) 0 % (0.0-2.0); EOSINOPHILS % (MANUAL) 2 % (0-4); LYMPHOCYTES % (MANUAL) 9 % (16-48); MONOCYTES % (MANUAL) 6 % (0-11.0); NEUTROPHILS % (MANUAL) 80 (42-76)
[2022-04-13] MEDS: DAKINS QUARTER STRENGTH (0.125%) 480 ML BOTTLE TOP SCH (14:04)
[2022-04-13] MEDS: THERAHONEY GEL 1.5 OZ TUBE TP SCH (14:04)
[2022-04-13] MEDS: MULTIVITAMINS,THERAGRAN 1 UDTAB TABLET GT SCH (14:08)
[2022-04-13 14:31] VITALS: BP 116/69
--- NOTE | 2022-04-13 14:41 | NUR ---
tried off restraint ,pt. pulling trach,resumed hand mittens and soft wrist left hand as ordered,will continue to monitor.
[2022-04-13 16:00] VITALS: BP 106/62
[2022-04-13] MEDS: NEPRO 1,000 ML BOTTLE GT PRN (16:42)
[2022-04-13] MEDS: MICAFUNGIN SODIUM 100 MG in IV NS 0.9% 100 ML IV SCH (16:58)
[2022-04-13] MEDS: ASCORBIC ACID 500 MG TABLET GT SCH (18:23)
--- NOTE | 2022-04-13 19:20 | NUR ---
RN CLOSING NOTES PATIENT IN BED, OBTUNDED. CURRENT O2SAT OF 100% PT AND CURRENTLY TOLERATING VENT SETTINGS. KNUTSON AND RIGHT-SIDED NEPHROSTOMY ARE BOTH INTACT AND PATENT, NO SIGNS OF LEAKING. HD CATHETER ON RIGHT FEMORAL, DRESSING IS C/D/I. GTD C/D/I; ON GT FEEDING RUNNING NEPRO AT 45 ML/HR X20HRS; NO RESIDUALS NOTED. HILDA AND MAILE MIDLINE INTACT AND PATENT, FLUSHES EASILY WITH NO RESISTANCE. NOTED WITH LEFT HAND MITTEN IN PLACE; NO SIGNS OF IMPAIRED SKIN OR CIRCULATION THROUGHOUT SHIFT.ALL DUE MEDS GIVEN ORDERED. KEPT PATIENT CLEAN DRY AND COMFORTABLE. ALL NEEDS ATTENDED. WOUND CARE RENDERED AND TOLERATED WELL. ALL SAFETY MEASURES IN PLACE; BED IN LOWEST LOCKED POSITION, CALL LIGHT WITHIN REACH, SIDE RAILS UP X3. ENDORSED TO BOILER OR ENGINE OPERATOR
--- NOTE | 2022-04-13 19:30 | NUR ---
RECEIVED PT IN BED, OBTUNDED. ON VENT. PT CURRENTLY TOLERATING VENT SETTINGS. PT ATTACHED TO EXTERNAL MONITOR, SR AT 70'S. PT NOTED TO HAVE KNUTSON AND RIGHT-SIDED NEPHROSTOMY; BOTH ARE INTACT AND PATENT, NO SIGNS OF LEAKING. HD CATHETER ON RIGHT FEMORAL, DRESSING IS C/D/I. GTD C/D/I; PT RECEIVES NEPRO AT 45 ML/HR X20HRS; NO RESIDUALS NOTED.WITH HILDA AND MAILE MIDLINE INTACT AND PATENT, FLUSHES EASILY WITH NO RESISTANCE. BED IN LOWEST AND LOCKED POSITION, CALL LIGHT WITHIN REACH, SIDE RAILS UP X3; LEFT HAND MITTEN IN PLACE; NO SIGNS OF IMPAIRED SKIN OR CIRCULATION. WILL CONTINUE PLAN OF CARE.
[2022-04-13 20:00] VITALS: BP 133/69
[2022-04-14] VITALS: BP 160/87
[2022-04-14] MEDS: INSULIN REGULAR, HUMAN 100 UNIT/ML 3 ML VIAL SQ PRN ×4 (00:20→17:29)
[2022-04-14] MEDS: BLOOD SUGAR DIAGNOSTIC 1 EACH STRIP IN SCH ×4 (00:20→17:29)
[2022-04-14 04:00] VITALS: BP 150/87
[2022-04-14 05:52] LABS: BASOPHILS % (AUTO) 0.1 % (0.0-2.0); HEMATOCRIT 25 % (39-51); HEMOGLOBIN 8.4 g/dL (13.5-17.5); LYMPHOCYTES % (AUTO) 8.3 % (20.0-44.0); MEAN CORPUSCULAR HGB CONC 34 g/dl (31.0-36.0); MEAN CORPUSCULAR VOLUME 90 fL (80-96); MONOCYTES # (AUTO) 1.5 K/uL (0.1-1.30); NEUTROPHILS # (AUTO) 20.5 K/uL (1.8-8.9); NEUTROPHILS % (AUTO) 83.6 % (43.0-81.0); PLATELET COUNT (AUTO) 172 K/uL (150-450); RED BLOOD CELL COUNT(AUTO) 2.77 MIL/uL (4.5-6.0); WHITE BLOOD COUNT (AUTO) 24.4 K/uL (4.3-11.0)
[2022-04-14] MEDS: LANTHANUM CARBONATE 500 MG TAB.CHEW GT SCH ×3 (06:08→22:08)
[2022-04-14] MEDS: DILTIAZEM HCL 30 MG TABLET GT SCH ×3 (06:09→22:08)
[2022-04-14 06:10] LABS: CALCIUM, SERUM 8.5 mg/dL (8.5-10.1); CREATININE 2.2 mg/dL (0.6-1.3); POTASSIUM 3.7 mmol/L (3.5-5.1)
--- NOTE | 2022-04-14 07:15 | NUR ---
PT IN BED, ON VENT. PT CURRENTLY TOLERATING VENT SETTINGS. PT ATTACHED TO EXTERNAL MONITOR, SR AT 70'S. PT NOTED TO HAVE KNUTSON AND RIGHT-SIDED NEPHROSTOMY; BOTH ARE INTACT AND PATENT, NO SIGNS OF LEAKING. HD CATHETER ON RIGHT FEMORAL, DRESSING IS C/D/I. GTD C/D/I; PT RECEIVES NEPRO AT 45 ML/HR X20HRS; NO RESIDUALS NOTED.WITH HILDA AND MAILE MIDLINE INTACT AND PATENT, FLUSHES EASILY WITH NO RESISTANCE. BED IN LOWEST AND LOCKED POSITION, CALL LIGHT WITHIN REACH, SIDE RAILS UP X3; LEFT HAND MITTEN IN PLACE; NO SIGNS OF IMPAIRED SKIN OR CIRCULATION. WILL ENDORSE TO NEXT NURSE ON DUTY FOR CONTINUITY OF CARE.
[2022-04-14 08:00] VITALS: BP 115/64
[2022-04-14] MEDS: METOPROLOL TARTRATE 25 MG TABLET GT SCH ×2 (09:11→22:08)
[2022-04-14] MEDS: MIDODRINE HCL (5MG) 5 MG TABLET PO SCH ×3 (09:12→17:00)
[2022-04-14] MEDS: BUMETANIDE (1 MG) 1 MG TABLET GT SCH (09:13)
[2022-04-14] MEDS: MULTIVITAMINS,THERAGRAN 1 UDTAB TABLET GT SCH (09:13)
[2022-04-14] MEDS: MEROPENEM 500 MG in IV NS 0.9% 50 ML IV SCH (09:13)
[2022-04-14] MEDS: PANTOPRAZOLE 40 MG VIAL IV SCH ×2 (09:13→22:08)
[2022-04-14] MEDS: LINEZOLID 600 MG TABLET PO SCH ×2 (09:14→22:09)
[2022-04-14] MEDS: DAKINS QUARTER STRENGTH (0.125%) 480 ML BOTTLE TOP SCH (09:15)
[2022-04-14] MEDS ORDERED: MISCELLANEOUS MED 1 EA EA XX ONE (10:00)
[2022-04-14 12:00] VITALS: BP 139/68
[2022-04-14] MEDS: IV 1/2NS 1000 ML 1,000 ML IV PRN (13:05)
[2022-04-14] MEDS: THERAHONEY GEL 1.5 OZ TUBE TP SCH (13:05)
[2022-04-14] MEDS: CEFTAZIDIME/AVIBACTAM 0.94 GM in IV NS 0.9% 100 ML IV SCH (13:10)
[2022-04-14 16:00] VITALS: BP 140/73
[2022-04-14] MEDS: MICAFUNGIN SODIUM 100 MG in IV NS 0.9% 100 ML IV SCH (17:19)
[2022-04-14] MEDS: NEPRO 1,000 ML BOTTLE GT PRN (17:20)
[2022-04-14] MEDS: ASCORBIC ACID 500 MG TABLET GT SCH (17:20)
--- NOTE | 2022-04-14 18:25 | NUR ---
END OF SHIFT SUMMARY A/O TO SELF. NON VERBAL. PT CONNECTED TO MECHANICAL VENT, TOLERATING SETTINGS WELL. HOB ELEVATED AT ALL TIMES. KNUTSON CATHETER IN PLACE DRAINING YELLOW URINE, 350CC OUTPUT. R NEPHROSTOMY TUBE, 100 CC OUTPUT. TUBE FEEDING AT 45 ML/HR, TOLERATING WELL. MIDLINES ON HILDA AND MAILE, BOTH INTACT AND PATENT. R FEMORAL CATH DRESSING C/D/I. WOUND CARE DONE ORDERED. SAFETY MEASURES MAINTAINED. BED IN LOWEST POSITION, BRAKES LOCKED. SIDE RAILS UP X2. CALL LIGHT WITHIN REACH. WILL ENDORSE CONTINUITY OF CARE TO ONCOMING SHIFT.
--- NOTE | 2022-04-14 19:00 | NUR ---
RN NOTE RECEIVED PATIENT IN BED, OBTUNDED, IN NO ACUTE DISTRESS, ON TRACH SHILEY#6 TO MECHANICAL VENT WITH SETTINGS PRESCRIBED: AC 16, TV 400, FIO2 40%, PEEP 5, SATURATION AT 100%, SR ON THE MONITOR, HR IS 74. HILDA AND MAILE MIDLINE PATENT AND FLUSHING WELL, WITH 1/2 NS INFUSING AT 100 ML/HR. GTUBE IN PLACE, POSITIVE PLACEMENT NOTED, WITH ONGOING TUBE FEEDING OF NEPRO AT 45 ML/HR. KNUTSON CATH DRAINING TO A CLEAR, YELLOW OUTPUT. NEPHROSTOMY TUBE INTACT DRAINING TO GRAVITY. L SOFT WRIST RESTRAINTS IN PLACE, SKIN AND CIRCULATION CHECKED AND ARE WNL. SAFETY MEASURES IN PLACE, BED IS LOCKED AND AT LOWEST POSITION, BED ALARM ON, SIDE RAILS UP X 2, CALL LIGHT WITHIN REACH OF PATIENT. WILL CONT TO MONITOR AND REASSESS.
[2022-04-14 20:00] VITALS: BP 137/76
[2022-04-15] VITALS: BP 109/89
[2022-04-15] MEDS: BLOOD SUGAR DIAGNOSTIC 1 EACH STRIP IN SCH ×4 (00:21→19:07)
[2022-04-15] MEDS: IV 1/2NS 1000 ML 1,000 ML IV PRN ×2 (03:46→19:05)
[2022-04-15 04:00] VITALS: BP 153/75
[2022-04-15] MEDS: DILTIAZEM HCL 30 MG TABLET GT SCH ×3 (06:06→21:50)
[2022-04-15] MEDS: LANTHANUM CARBONATE 500 MG TAB.CHEW GT SCH ×3 (06:06→21:49)
[2022-04-15 06:35] LABS: BASOPHILS # (AUTO) 0.1 K/uL (0.0-0.2); BASOPHILS % (AUTO) 0.3 % (0.0-2.0); EOSINOPHILS % (AUTO) 2.6 % (0.0-6.0); HEMATOCRIT 29 % (39-51); HEMOGLOBIN 9.6 g/dL (13.5-17.5); LYMPHOCYTES # (AUTO) 3.1 K/uL (0.8-4.8); MEAN CORPUSCULAR HGB CONC 33 g/dl (31.0-36.0); MEAN CORPUSCULAR VOLUME 91 fL (80-96); MONOCYTES # (AUTO) 1.8 K/uL (0.1-1.30); NEUTROPHILS # (AUTO) 24.7 K/uL (1.8-8.9); NEUTROPHILS % (AUTO) 81.1 % (43.0-81.0); PLATELET COUNT (AUTO) 193 K/uL (150-450); RED BLOOD CELL COUNT(AUTO) 3.15 MIL/uL (4.5-6.0)
[2022-04-15 06:44] LABS: WHITE BLOOD COUNT (AUTO) 30.5 K/uL (4.3-11.0)
--- NOTE | 2022-04-15 06:45 | NUR ---
RN NOTES WBC 30.5; Primary RN Darrell aware; message sent to
[2022-04-15] MEDS: ONDANSETRON HCL/PF 4 MG/2 ML VIAL IVP PRN ×3 (06:48→16:45)
[2022-04-15 07:29] LABS: CALCIUM, SERUM 8.6 mg/dL (8.5-10.1); CREATININE 2.4 mg/dL (0.6-1.3); MAGNESIUM 2.1 mg/dL (1.8-2.4); POTASSIUM 3.8 mmol/L (3.5-5.1)
--- NOTE | 2022-04-15 07:37 | NUR ---
RN OPENING NOTE RECEIVED PATIENT IN BED, OBTUNDED, IN NO ACUTE DISTRESS, ON TRACH SHILEY#6 TO MECHANICAL VENT WITH SETTINGS PRESCRIBED: AC 16, TV 400, FIO2 40%, PEEP 5, SATURATION AT 100%, SR ON THE MONITOR, HR IS 74. HILDA AND MAILE MIDLINE PATENT AND FLUSHING WELL, WITH 1/2 NS INFUSING AT 100 ML/HR. GTUBE IN PLACE, POSITIVE PLACEMENT NOTED, WITH ONGOING TUBE FEEDING OF NEPRO AT 45 ML/HR. KNUTSON CATH DRAINING TO A CLEAR, YELLOW OUTPUT. NEPHROSTOMY TUBE INTACT DRAINING TO GRAVITY. L SOFT WRIST RESTRAINTS IN PLACE, SKIN AND CIRCULATION CHECKED AND ARE WNL. WILL CONTINUITY OF CARE THROUGHOUT SHIFT.
[2022-04-15 08:00] VITALS: BP 146/90
[2022-04-15] MEDS: MULTIVITAMINS,THERAGRAN 1 UDTAB TABLET GT SCH (08:34)
[2022-04-15] MEDS: PANTOPRAZOLE 40 MG VIAL IV SCH (08:34)
[2022-04-15] MEDS: MIDODRINE HCL (5MG) 5 MG TABLET PO SCH ×4 (08:34→19:06)
[2022-04-15] MEDS: METOPROLOL TARTRATE 25 MG TABLET GT SCH ×2 (08:35→21:49)
[2022-04-15] MEDS: LINEZOLID 600 MG TABLET PO SCH ×2 (08:35→21:50)
[2022-04-15] MEDS: BUMETANIDE (1 MG) 1 MG TABLET GT SCH (08:35)
[2022-04-15 09:25] LABS: BAND % (MANUAL) 6 % (0.0-5.0); EOSINOPHILS % (MANUAL) 1 % (0-4); LYMPHOCYTES % (MANUAL) 15 % (16-48); MONOCYTES % (MANUAL) 4 % (0-11.0); NEUTROPHILS % (MANUAL) 74 (42-76)
[2022-04-15] MEDS: DAKINS QUARTER STRENGTH (0.125%) 480 ML BOTTLE TOP SCH (11:08)
[2022-04-15] MEDS: THERAHONEY GEL 1.5 OZ TUBE TP SCH (11:09)
[2022-04-15 12:00] VITALS: BP 166/88
[2022-04-15] MEDS: CEFTAZIDIME/AVIBACTAM 0.94 GM in IV NS 0.9% 100 ML IV SCH (12:47)
[2022-04-15 16:00] VITALS: BP 134/80
[2022-04-15] MEDS: MICAFUNGIN SODIUM 100 MG in IV NS 0.9% 100 ML IV SCH (16:42)
[2022-04-15] MEDS: D5W IV SCH (19:05)
[2022-04-15] MEDS: AMIKACIN IV SCH (19:05)
[2022-04-15] MEDS: ASCORBIC ACID 500 MG TABLET GT SCH (19:06)
[2022-04-15] MEDS: PANTOPRAZOLE 40 MG/PACK PACK NG SCH (19:06)
--- NOTE | 2022-04-15 19:10 | NUR ---
RN NOTE RECEIVED PATIENT IN BED, OBTUNDED, IN NO ACUTE DISTRESS, ON TRACH SHILEY#6 TO MECHANICAL VENT WITH SETTINGS PRESCRIBED: AC 16, TV 400, FIO2 40%, PEEP 5, SATURATION AT 100%, SR ON THE MONITOR, HR IS 87. HILDA AND MAILE MIDLINE PATENT AND FLUSHING WELL, WITH 1/2 NS INFUSING AT 100 ML/HR. GTUBE IN PLACE, POSITIVE PLACEMENT NOTED, WITH ONGOING TUBE FEEDING OF NEPRO AT 45 ML/HR. KNUTSON CATH DRAINING TO A CLEAR, YELLOW OUTPUT. NEPHROSTOMY TUBE INTACT DRAINING TO GRAVITY. L SOFT WRIST RESTRAINTS IN PLACE, SKIN AND CIRCULATION CHECKED AND ARE WNL. SAFETY MEASURES IN PLACE, BED IS LOCKED AND AT LOWEST POSITION, BED ALARM ON, SIDE RAILS UP X 2, CALL LIGHT WITHIN REACH OF PATIENT. WILL CONT TO MONITOR AND REASSESS.
[2022-04-15 20:00] VITALS: BP 155/85
--- NOTE | 2022-04-15 20:00 | NUR ---
RN NOTE R FEMORAL HD CATH REMOVED AND PRESSURE DRESSING APPLIED BY HD RN. NO BLEEDING NOTED. WILL MONITOR
--- NOTE | 2022-04-15 20:46 | NUR ---
RN CLOSING NOTE PATIENT IN BED, OBTUNDED, IN NO ACUTE DISTRESS, ON TRACH SHILEY#6 TO MECHANICAL VENT WITH SETTINGS PRESCRIBED: AC 16, TV 400, FIO2 40%, PEEP 5, SATURATION AT 100%, SR ON THE MONITOR, HR IS 85. HILDA AND MAILE MIDLINE PATENT AND FLUSHING WELL, WITH 1/2 NS INFUSING AT 100 ML/HR. GTUBE INTACT AND PATENT, NO RESIDUAL VOLUME NOTED. KNUTSON CATH DRAINING TO A CLEAR, YELLOW OUTPUT. NEPHROSTOMY TUBE INTACT DRAINING TO GRAVITY. L SOFT WRIST RESTRAINTS IN PLACE, SKIN AND CIRCULATION CHECKED AND ARE WNL. WILL ENDORSE CONTINUITY OF CARE THROUGHOUT SHIFT.
--- NOTE | 2022-04-15 20:59 | NUR ---
Temporary HD catheter to Rt Femoral discontinued as ordered by Dr Tuttle, tip of catheter intact, pressure to Rt Femoral site applied X5 mins, hemostasis achieved pressure dressing applied secured with a paper tape. Darrell RN at bedside, instructed to check on rt fem site for hematoma/ bleeding, verbalized understanding.
[2022-04-16] VITALS: BP 153/78
[2022-04-16] MEDS: ONDANSETRON HCL/PF 4 MG/2 ML VIAL IVP PRN ×2 (00:38→21:09)
[2022-04-16] MEDS: BLOOD SUGAR DIAGNOSTIC 1 EACH STRIP IN SCH ×4 (00:38→17:27)
[2022-04-16 04:00] VITALS: BP 152/82
--- NOTE | 2022-04-16 04:22 | NUR ---
RT PT RECVD AWAKE ON ORDERED [facility] [place] VENT SETTINGS, TRACH IS PATENT, MIDLINE AND SECURED. SUCTION DONE Q2/PRN. NO SOB OR RESPIRATORY DISTRESS NOTED THROUGHOUT SHIFT. VENT IS PLUGGED INTO RED OUTLET WITH ALARMS ON AND AUDIBLE. SPARE TRACH AND AMBU BAG AT BEDSIDE. SPO2 >99% MAINTAINED.
[2022-04-16] MEDS: PANTOPRAZOLE 40 MG/PACK PACK NG SCH ×2 (04:53→17:03)
[2022-04-16] MEDS: LANTHANUM CARBONATE 500 MG TAB.CHEW GT SCH ×3 (04:53→21:08)
[2022-04-16] MEDS: DILTIAZEM HCL 30 MG TABLET GT SCH ×3 (04:54→21:08)
[2022-04-16] MEDS: IV 1/2NS 1000 ML 1,000 ML IV PRN ×2 (06:29→18:18)
[2022-04-16 07:05] LABS: BASOPHILS # (AUTO) 0.1 K/uL (0.0-0.2); BASOPHILS % (AUTO) 0.6 % (0.0-2.0); EOSINOPHILS % (AUTO) 3.5 % (0.0-6.0); HEMATOCRIT 23 % (39-51); HEMOGLOBIN 7.7 g/dL (13.5-17.5); LYMPHOCYTES # (AUTO) 2.3 K/uL (0.8-4.8); MEAN CORPUSCULAR HGB CONC 34 g/dl (31.0-36.0); MEAN CORPUSCULAR VOLUME 90 fL (80-96); MONOCYTES # (AUTO) 1.6 K/uL (0.1-1.30); MONOCYTES % (AUTO) 6.3 % (2.0-12.0); NEUTROPHILS # (AUTO) 20.7 K/uL (1.8-8.9); NEUTROPHILS % (AUTO) 80.6 % (43.0-81.0); PLATELET COUNT (AUTO) 193 K/uL (150-450); RED BLOOD CELL COUNT(AUTO) 2.51 MIL/uL (4.5-6.0); WHITE BLOOD COUNT (AUTO) 25.6 K/uL (4.3-11.0)
[2022-04-16 07:32] LABS: CALCIUM, SERUM 7.8 mg/dL (8.5-10.1); CREATININE 2.5 mg/dL (0.6-1.3); POTASSIUM 3.3 mmol/L (3.5-5.1)
[2022-04-16 08:00] VITALS: BP 132/71
[2022-04-16] MEDS: LINEZOLID 600 MG TABLET PO SCH ×2 (08:54→21:08)
[2022-04-16] MEDS: METOPROLOL TARTRATE 25 MG TABLET GT SCH ×2 (08:54→21:08)
[2022-04-16] MEDS: BUMETANIDE (1 MG) 1 MG TABLET GT SCH (08:55)
[2022-04-16] MEDS: THERAHONEY GEL 1.5 OZ TUBE TP SCH (08:55)
[2022-04-16] MEDS: MULTIVITAMINS,THERAGRAN 1 UDTAB TABLET GT SCH (08:55)
[2022-04-16] MEDS: DAKINS QUARTER STRENGTH (0.125%) 480 ML BOTTLE TOP SCH (08:55)
[2022-04-16] MEDS: CEFTAZIDIME/AVIBACTAM 0.94 GM in IV NS 0.9% 100 ML IV SCH (11:32)
[2022-04-16 12:00] VITALS: BP 159/70
[2022-04-16] MEDS: MIDODRINE HCL (5MG) 5 MG TABLET PO SCH ×2 (12:45→16:44)
--- NOTE | 2022-04-16 12:45 | NUR ---
RN NOTE BP 159/70. MIDODRINE HELD
[2022-04-16] MEDS: MICAFUNGIN SODIUM 100 MG in IV NS 0.9% 100 ML IV SCH (15:42)
[2022-04-16 16:00] VITALS: BP 141/78
[2022-04-16] MEDS: ASCORBIC ACID 500 MG TABLET GT SCH (17:03)
[2022-04-16] MEDS: AMIKACIN IV SCH (17:28)
[2022-04-16] MEDS: D5W IV SCH (17:28)
--- NOTE | 2022-04-16 19:15 | NUR ---
RN NOTE RECEIVED PATIENT IN BED, OBTUNDED, IN NO ACUTE DISTRESS, ON TRACH SHILEY#6 TO MECHANICAL VENT WITH SETTINGS PRESCRIBED: AC 16, TV 400, FIO2 40%, PEEP 5, SATURATION AT 100%, SR ON THE MONITOR, HR IS 85. HILDA AND MAILE MIDLINE PATENT AND FLUSHING WELL, WITH 1/2 NS INFUSING AT 100 ML/HR. GTUBE IN PLACE, POSITIVE PLACEMENT NOTED, WITH ONGOING TUBE FEEDING OF NEPRO AT 45 ML/HR. KNUTSON CATH DRAINING TO A CLEAR, YELLOW OUTPUT. NEPHROSTOMY TUBE INTACT DRAINING TO GRAVITY. L SOFT WRIST RESTRAINTS IN PLACE, SKIN AND CIRCULATION CHECKED AND ARE WNL. SAFETY MEASURES IN PLACE, BED IS LOCKED AND AT LOWEST POSITION, BED ALARM ON, SIDE RAILS UP X 2, CALL LIGHT WITHIN REACH OF PATIENT. WILL CONT TO MONITOR AND REASSESS.
[2022-04-16 20:00] VITALS: BP 137/83
[2022-04-17] VITALS: BP 113/62
[2022-04-17] MEDS: BLOOD SUGAR DIAGNOSTIC 1 EACH STRIP IN SCH ×4 (00:02→17:03)
[2022-04-17] MEDS: NEPRO 1,000 ML BOTTLE GT PRN (00:02)
[2022-04-17 04:00] VITALS: BP 157/93
[2022-04-17] MEDS: DILTIAZEM HCL 30 MG TABLET GT SCH ×3 (04:55→20:45)
[2022-04-17] MEDS: LANTHANUM CARBONATE 500 MG TAB.CHEW GT SCH ×3 (04:55→20:44)
[2022-04-17] MEDS: PANTOPRAZOLE 40 MG/PACK PACK NG SCH ×2 (04:56→17:10)
[2022-04-17] MEDS: IV 1/2NS 1000 ML 1,000 ML IV PRN ×2 (04:59→15:00)
[2022-04-17] MEDS: ONDANSETRON HCL/PF 4 MG/2 ML VIAL IVP PRN (05:04)
[2022-04-17 07:23] LABS: BASOPHILS # (AUTO) 0.1 K/uL (0.0-0.2); BASOPHILS % (AUTO) 0.5 % (0.0-2.0); EOSINOPHILS % (AUTO) 2.9 % (0.0-6.0); HEMATOCRIT 22 % (39-51); HEMOGLOBIN 7.6 g/dL (13.5-17.5); LYMPHOCYTES # (AUTO) 2.5 K/uL (0.8-4.8); LYMPHOCYTES % (AUTO) 9.9 % (20.0-44.0); MEAN CORPUSCULAR HGB CONC 34 g/dl (31.0-36.0); MEAN CORPUSCULAR VOLUME 90 fL (80-96); MONOCYTES # (AUTO) 1.8 K/uL (0.1-1.30); MONOCYTES % (AUTO) 7.2 % (2.0-12.0); NEUTROPHILS # (AUTO) 20.1 K/uL (1.8-8.9); NEUTROPHILS % (AUTO) 79.5 % (43.0-81.0); PLATELET COUNT (AUTO) 218 K/uL (150-450); RED BLOOD CELL COUNT(AUTO) 2.48 MIL/uL (4.5-6.0); WHITE BLOOD COUNT (AUTO) 25.2 K/uL (4.3-11.0)
[2022-04-17 07:48] LABS: CALCIUM, SERUM 8.3 mg/dL (8.5-10.1); CREATININE 2.5 mg/dL (0.6-1.3); POTASSIUM 3.4 mmol/L (3.5-5.1)
[2022-04-17 08:00] VITALS: BP 160/75
[2022-04-17] MEDS: MIDODRINE HCL (5MG) 5 MG TABLET PO SCH (09:00)
[2022-04-17] MEDS: LINEZOLID 600 MG TABLET PO SCH ×2 (09:03→20:44)
[2022-04-17] MEDS: BUMETANIDE (1 MG) 1 MG TABLET GT SCH (09:03)
[2022-04-17] MEDS: METOPROLOL TARTRATE 25 MG TABLET GT SCH ×2 (09:03→20:45)
[2022-04-17] MEDS: MULTIVITAMINS,THERAGRAN 1 UDTAB TABLET GT SCH (09:03)
[2022-04-17] MEDS: DAKINS QUARTER STRENGTH (0.125%) 480 ML BOTTLE TOP SCH (09:04)
[2022-04-17] MEDS: THERAHONEY GEL 1.5 OZ TUBE TP SCH (09:04)
[2022-04-17] MEDS: CEFTAZIDIME/AVIBACTAM 0.94 GM in IV NS 0.9% 100 ML IV SCH (10:25)
[2022-04-17 12:00] VITALS: BP 159/84
[2022-04-17] MEDS ORDERED: POTASSIUM CHLORIDE 20 MEQ POWDER PACKET GT ONE (12:30)
[2022-04-17] MEDS: MICAFUNGIN SODIUM 100 MG in IV NS 0.9% 100 ML IV SCH (15:00)
[2022-04-17 16:00] VITALS: BP 141/74
[2022-04-17] MEDS: ASCORBIC ACID 500 MG TABLET GT SCH (17:10)
[2022-04-17] MEDS: D5W IV SCH (17:39)
[2022-04-17] MEDS: AMIKACIN IV SCH (17:39)
--- NOTE | 2022-04-17 19:45 | NUR ---
SENIOR DIRECTOR FINANCE OPENING NOTE RECEIVED PT IN BED, OBTUNDED. ON SHILEY #6, AC 16, TV 400, FI2O 50%, PEEP 5; CURRENT O2SAT OF 98% PT CURRENTLY TOLERATING VENT SETTINGS. PT ATTACHED TO EXTERNAL MONITOR, SR AT 78. PT NOTED TO HAVE KNUTSON AND RIGHT-SIDED NEPHROSTOMY; BOTH ARE INTACT AND PATENT, NO SIGNS OF LEAKING. PT RECEIVES NEPRO VIA GT AT 45 ML/HR X 20HRS; NO RESIDUALS NOTED. WITH HILDA MIDLINE INTACT AND PATENT RUNNING 1/2 NS AT 100 ML/HR, NOTED MAILE ML GOT DISLODGED, WITH FLEXISEAL IN PLACED, WITH LEFT HAND MITTEN WITH RESTRAINTS; NO SIGNS OF IMPAIRED SKIN OR CIRCULATION. BED IN LOWEST AND LOCKED POSITION, CALL LIGHT WITHIN REACH, SIDE RAILS UP X3; WILL CONTINUE TO MONITOR THROUGHOUT THE SHIFT.
[2022-04-17 20:00] VITALS: BP 147/82
[2022-04-18] VITALS: BP 153/85
--- NOTE | 2022-04-18 | NUR ---
RN NOTES BS CHECKED AT 89 MG/DL, NO COVERAGE GIVEN PER SLIDING SCALE. RESUMED GT FEEDING AT THIS TIME.
[2022-04-18] MEDS: BLOOD SUGAR DIAGNOSTIC 1 EACH STRIP IN SCH ×4 (00:40→17:48)
[2022-04-18] MEDS: IV 1/2NS 1000 ML 1,000 ML IV PRN ×2 (02:30→14:37)
[2022-04-18 04:00] VITALS: BP 130/88
[2022-04-18] MEDS: DILTIAZEM HCL 30 MG TABLET GT SCH ×3 (04:35→20:35)
[2022-04-18] MEDS: LANTHANUM CARBONATE 500 MG TAB.CHEW GT SCH ×3 (04:36→20:35)
[2022-04-18] MEDS: NEPRO 1,000 ML BOTTLE GT PRN (04:50)
[2022-04-18] MEDS: PANTOPRAZOLE 40 MG/PACK PACK NG SCH ×2 (05:53→17:50)
--- NOTE | 2022-04-18 06:00 | NUR ---
RN NOTES BS CHECKED AT 79 MG/DL, NO COVERAGE GIVEN PER SLIDING SCALE.
--- NOTE | 2022-04-18 06:40 | NUR ---
WHEEL BRAIDER CLOSING NOTE NO SIGNIFICANT CHANGES THROUGHOUT THE SHIFT, PT IN BED, OBTUNDED. ON SHILEY #6, AC 16, TV 400, FI2O 50%, PEEP 5; CURRENT O2SAT OF 98% PT CURRENTLY TOLERATING VENT SETTINGS. PT ATTACHED TO EXTERNAL MONITOR, SR AT 78. PT NOTED TO HAVE KNUTSON AND RIGHT-SIDED NEPHROSTOMY; BOTH ARE INTACT AND PATENT, NO SIGNS OF LEAKING. PT RECEIVES NEPRO VIA GT AT 45 ML/HR X 20HRS; NO RESIDUALS NOTED. WITH HILDA MIDLINE INTACT AND PATENT RUNNING 1/2 NS AT 100 ML/HR, WITH FLEXISEAL IN PLACED, WITH LEFT HAND MITTEN WITH RESTRAINTS; NO SIGNS OF IMPAIRED SKIN OR CIRCULATION. ALL DUE MEDS GIVE, KEPT DRY AND CLEAN, BED IN LOWEST AND LOCKED POSITION, CALL LIGHT WITHIN REACH, SIDE RAILS UP X3; WILL ENDORSE TO AM SHIFT NURSE.
[2022-04-18 07:02] LABS: BASOPHILS # (AUTO) 0.1 K/uL (0.0-0.2); BASOPHILS % (AUTO) 0.5 % (0.0-2.0); EOSINOPHILS % (AUTO) 2.5 % (0.0-6.0); HEMATOCRIT 26 % (39-51); HEMOGLOBIN 8.5 g/dL (13.5-17.5); LYMPHOCYTES # (AUTO) 2.2 K/uL (0.8-4.8); LYMPHOCYTES % (AUTO) 7.5 % (20.0-44.0); MEAN CORPUSCULAR HGB CONC 34 g/dl (31.0-36.0); MEAN CORPUSCULAR VOLUME 90 fL (80-96); MONOCYTES # (AUTO) 1.2 K/uL (0.1-1.30); NEUTROPHILS # (AUTO) 25.3 K/uL (1.8-8.9); NEUTROPHILS % (AUTO) 85.5 % (43.0-81.0); PLATELET COUNT (AUTO) 243 K/uL (150-450); RED BLOOD CELL COUNT(AUTO) 2.84 MIL/uL (4.5-6.0); WHITE BLOOD COUNT (AUTO) 29.6 K/uL (4.3-11.0)
[2022-04-18 07:14] LABS: CALCIUM, SERUM 8.2 mg/dL (8.5-10.1); CREATININE 2.4 mg/dL (0.6-1.3)
[2022-04-18 08:00] VITALS: BP 138/76
[2022-04-18] MEDS: MULTIVITAMINS,THERAGRAN 1 UDTAB TABLET GT SCH (09:33)
[2022-04-18] MEDS: METOPROLOL TARTRATE 25 MG TABLET GT SCH ×2 (09:34→20:35)
[2022-04-18] MEDS: BUMETANIDE (1 MG) 1 MG TABLET GT SCH (09:37)
[2022-04-18] MEDS: LINEZOLID 600 MG TABLET PO SCH ×2 (09:38→20:35)
[2022-04-18] MEDS: DAKINS QUARTER STRENGTH (0.125%) 480 ML BOTTLE TOP SCH (09:39)
[2022-04-18] MEDS: THERAHONEY GEL 1.5 OZ TUBE TP SCH (09:39)
[2022-04-18 12:00] VITALS: BP 147/82
[2022-04-18] MEDS: CEFTAZIDIME/AVIBACTAM 0.94 GM in IV NS 0.9% 100 ML IV SCH (12:13)
[2022-04-18] MEDS: POTASSIUM CHLORIDE 20 MEQ POWDER PACKET GT SCH ×4 (12:13→16:20)
[2022-04-18] MEDS: INSULIN REGULAR, HUMAN 100 UNIT/ML 3 ML VIAL SQ PRN ×2 (12:24→18:06)
[2022-04-18 16:00] VITALS: BP 118/73
[2022-04-18] MEDS: AMIKACIN IV SCH (17:50)
[2022-04-18] MEDS: D5W IV SCH (17:50)
[2022-04-18] MEDS: ASCORBIC ACID 500 MG TABLET GT SCH (17:50)
--- NOTE | 2022-04-18 19:52 | NUR ---
POTATO CHIP PACKAGING MACHINE OPERATOR OPENING NOTE RECEIVED PT IN BED, OBTUNDED. ON SHILEY #6, AC 16, TV 400, FI2O 50%, PEEP 5; CURRENT O2SAT OF 100% PT CURRENTLY TOLERATING VENT SETTINGS. PT ATTACHED TO EXTERNAL MONITOR, SR AT 78. PT NOTED TO HAVE KNUTSON AND RIGHT-SIDED NEPHROSTOMY; BOTH ARE INTACT AND PATENT, NO SIGNS OF LEAKING. PT RECEIVES NEPRO VIA GT AT 45 ML/HR X 20HRS; NO RESIDUALS NOTED. WITH LAC IV INTACT AND PATENT RUNNING 1/2 NS AT 100 ML/HR, WITH FLEXISEAL IN PLACED, WITH LEFT HAND MITTEN WITH RESTRAINTS; NO SIGNS OF IMPAIRED SKIN OR CIRCULATION. BED IN LOWEST AND LOCKED POSITION, CALL LIGHT WITHIN REACH, SIDE RAILS UP X3; WILL CONTINUE TO MONITOR THROUGHOUT THE SHIFT.
[2022-04-18 20:00] VITALS: BP 143/78
[2022-04-19] VITALS: BP 127/71
--- NOTE | 2022-04-19 | NUR ---
RN NOTES BS CHECKED AT 81 MG/DL, NO COVERAGE GIVEN PER SLIDING SCALE. RESUMED GT FEEDING AT THIS TIME.
[2022-04-19] MEDS: IV 1/2NS 1000 ML 1,000 ML IV PRN ×3 (00:30→21:12)
[2022-04-19] MEDS: BLOOD SUGAR DIAGNOSTIC 1 EACH STRIP IN SCH ×4 (00:30→17:37)
[2022-04-19 04:00] VITALS: BP 145/77
[2022-04-19] MEDS: DILTIAZEM HCL 30 MG TABLET GT SCH ×3 (05:06→21:18)
[2022-04-19] MEDS: LANTHANUM CARBONATE 500 MG TAB.CHEW GT SCH ×3 (05:06→21:18)
[2022-04-19] MEDS: PANTOPRAZOLE 40 MG/PACK PACK NG SCH ×2 (05:06→17:43)
--- NOTE | 2022-04-19 05:48 | NUR ---
RN NOTES BS CHECKED AT 98 MG/DL, NO COVERAGE GIVEN PER SLIDING SCALE.
--- NOTE | 2022-04-19 06:29 | NUR ---
LEATHER SPLITTER CLOSING NOTE NO SIGNIFICANT CHANGES THROUGHOUT THE SHIFT, PT REMAINS IN BED, OBTUNDED. ON SHILEY #6, AC 16, TV 400, FI2O 50%, PEEP 5; CURRENT O2SAT OF 100% PT CURRENTLY TOLERATING VENT SETTINGS. PT ATTACHED TO EXTERNAL MONITOR, SR AT 88. PT NOTED TO HAVE KNUTSON AND RIGHT-SIDED NEPHROSTOMY; BOTH ARE INTACT AND PATENT, NO SIGNS OF LEAKING. PT RECEIVES NEPRO VIA GT AT 45 ML/HR X 20HRS; NO RESIDUALS NOTED. WITH HILDA MIDLINE INTACT AND PATENT RUNNING 1/2 NS AT 100 ML/HR, WITH FLEXISEAL IN PLACED, WITH LEFT HAND MITTEN WITH RESTRAINTS; NO SIGNS OF IMPAIRED SKIN OR CIRCULATION. ALL DUE MEDS GIVE, KEPT DRY AND CLEAN, BED IN LOWEST AND LOCKED POSITION, CALL LIGHT WITHIN REACH, SIDE RAILS UP X3; WILL ENDORSE TO AM SHIFT NURSE.
[2022-04-19 06:47] LABS: BASOPHILS # (AUTO) 0.1 K/uL (0.0-0.2); BASOPHILS % (AUTO) 0.3 % (0.0-2.0); EOSINOPHILS % (AUTO) 1.7 % (0.0-6.0); HEMATOCRIT 24 % (39-51); LYMPHOCYTES # (AUTO) 2.9 K/uL (0.8-4.8); LYMPHOCYTES % (AUTO) 8.4 % (20.0-44.0); MEAN CORPUSCULAR HGB CONC 33 g/dl (31.0-36.0); MEAN CORPUSCULAR VOLUME 92 fL (80-96); MONOCYTES # (AUTO) 1.7 K/uL (0.1-1.30); MONOCYTES % (AUTO) 4.9 % (2.0-12.0); NEUTROPHILS # (AUTO) 29.5 K/uL (1.8-8.9); NEUTROPHILS % (AUTO) 84.7 % (43.0-81.0); PLATELET COUNT (AUTO) 232 K/uL (150-450); RED BLOOD CELL COUNT(AUTO) 2.63 MIL/uL (4.5-6.0)
[2022-04-19 07:08] LABS: CALCIUM, SERUM 8.2 mg/dL (8.5-10.1); CREATININE 2.3 mg/dL (0.6-1.3); POTASSIUM 3.7 mmol/L (3.5-5.1)
--- NOTE | 2022-04-19 07:20 | NUR ---
PROJECT DRILLING ENGINEER OPENING NOTE: RECEIVED PT. RESTING IN BED, NON-VERBAL, OBTUNDED. NO VISIBLE SIGNS OF OF PAIN/DISCOMFORT AT THIS TIME. ON VENT/TRACH WITH TRACH SIZE SHILEY#6; AC MODE AT 16; VT - 400; FIO2 - 40%; PEEP - 5. TOLERATING WELL, NO S/S OF RESPIRATORY DISTRESS, ON TELE MONITORING CURRENTLY READING NSR WITH BB WITH HR AT 80 BPM AT THIS TIME. PT. HAS G-TUBE WITH NEPRO RUNNING AT 45 ML/HR. NO RESIDUAL NOTED. DRESSING C/D/I. PT. HAS F/C WITH CLEAR YELLOW URINE DRAINING VIA GRAVITY. HE ALSO HAS NEPHROSTOMY, PATENT, DRAINING CLEAR YELLOW/TORRES OUTPUT. DRESSING C/D/I. PT. ON FLEXI-SEAL, PATENT AND NO SIGNS OF LEAKAGE. IV LINE AT HILDA MIDLINE RUNNING NS AT 100 ML/HR. IV SITE DRESSING C/D/I, NO S/S OF INFECTION OR INFILTRATION. SAFETY MEASURES IN PLACE: BED IN LOWEST AND LOCKED POSITION, BED ALARM ON, HOB ELEVATED AT 30 DEGREES, SIDE RAILS UP X 3, WILL TURN AND REPOSITION AT LEAST Q2H, BED ALARM ON. WILL CONTINUE TO MONITOR PT. FOR ANY CHANGES.
[2022-04-19 07:53] LABS: WHITE BLOOD COUNT (AUTO) 34.8 K/uL (4.3-11.0)
[2022-04-19 08:00] VITALS: BP 138/74
--- NOTE | 2022-04-19 08:15 | NUR ---
WOVEN PAPER HAT MENDER NOTE: LAB REPORTED CRITICAL VALUE OF WBC - 34.8 AT 0752. YESTERDAY IT WAS 29.6. MD INFORMED AT 0812 AND ORDERED TO JUST CONTINUE CURRENT TREATMENT PLAN AND MONITOR.
[2022-04-19] MEDS: BUMETANIDE (1 MG) 1 MG TABLET GT SCH (09:32)
[2022-04-19] MEDS: THERAHONEY GEL 1.5 OZ TUBE TP SCH (09:32)
[2022-04-19] MEDS: LINEZOLID 600 MG TABLET PO SCH ×2 (09:32→21:18)
[2022-04-19] MEDS: MULTIVITAMINS,THERAGRAN 1 UDTAB TABLET GT SCH (09:32)
[2022-04-19] MEDS: METOPROLOL TARTRATE 25 MG TABLET GT SCH ×2 (09:33→21:18)
[2022-04-19] MEDS: DAKINS QUARTER STRENGTH (0.125%) 480 ML BOTTLE TOP SCH (09:48)
[2022-04-19] MEDS: CEFTAZIDIME/AVIBACTAM 0.94 GM in IV NS 0.9% 100 ML IV SCH (11:48)
[2022-04-19 11:51] LABS: BAND % (MANUAL) 9 % (0.0-5.0); LYMPHOCYTES % (MANUAL) 6 % (16-48); MONOCYTES % (MANUAL) 2 % (0-11.0); NEUTROPHILS % (MANUAL) 83 (42-76)
[2022-04-19 12:00] VITALS: BP 129/70
--- NOTE | 2022-04-19 12:00 | NUR ---
FLOOR COVERING PRINTERLUMP RECEIVER OF CARE NOTE: PT.CARE WILL BE TRANSFERRED NOW TO ADAM JARAMILLO. PT. REMAINS STABLE AND STATUS IS UNCHANGED SINCE START OF SHIFT. VENT SETTINGS REMAIN THE SAME. VS STABLE. ALL MEDS GIVEN ORDERED. TURNED AND REPOSITIONED AT LEAST Q2H. WOUND TREATMENT DONE ORDERED. HOB ELEVATED AT 30 DEGREES. PT. CLEAN AND DRY. SAFETY MEASURES MAINTAINED. WILL ENDORSE CONTINUITY OF CARE TO ADAM JARAMILLO AT BEDSIDE.
[2022-04-19] MEDS: NEPRO 1,000 ML BOTTLE GT PRN (15:37)
[2022-04-19 16:00] VITALS: BP 135/82
[2022-04-19] MEDS: ASCORBIC ACID 500 MG TABLET GT SCH (17:39)
--- NOTE | 2022-04-19 19:09 | NUR ---
RN CLOSING NOTE: PT RESTING IN BED, NON-VERBAL, OBTUNDED. NO VISIBLE SIGNS OF OF PAIN/DISCOMFORT AT THIS TIME. ON VENT/TRACH WITH TRACH SIZE SHILEY#6; AC MODE AT 16; VT - 400; FIO2 - 40%; PEEP - 5. TOLERATING WELL, NO S/S OF RESPIRATORY DISTRESS, ON TELE MONITORING CURRENTLY READING NSR WITH HR AT 91 BPM AT THIS TIME. PT HAS G-TUBE WITH NEPRO RUNNING AT 40 ML/HR. NO RESIDUAL NOTED. DRESSING C/D/I. PT HAS F/C WITH CLEAR YELLOW URINE DRAINING VIA GRAVITY. HE ALSO HAS NEPHROSTOMY, PATENT, DRAINING CLEAR YELLOW/TORRES OUTPUT. DRESSING C/D/I. PT. ON FLEXI-SEAL, PATENT AND NO SIGNS OF LEAKAGE. IV LINE AT HILDA MIDLINE RUNNING NS AT 100 ML/HR. IV SITE DRESSING C/D/I, NO S/S OF INFECTION OR INFILTRATION. SAFETY MEASURES IN PLACE: BED IN LOWEST AND LOCKED POSITION, BED ALARM ON, HOB ELEVATED AT 30 DEGREES, SIDE RAILS UP X 3, WILL TURN AND REPOSITION AT LEAST Q2H, BED ALARM ON. WILL ENDORSE CONTINUITY OF CARE TO GILL BOX FIXER NURSE.
--- NOTE | 2022-04-19 19:30 | NUR ---
SENIOR PHP SOFTWARE DEVELOPER OPENING NOTE: RECEIVED REPORT FROM ELLA FOR [facility]. PT IN BED, NON-VERBAL AND OBTUNDED. NO VISIBLE SIGNS OF OF PAIN/DISCOMFORT NOTED AT THIS TIME. ON VENT/TRACH WITH TRACH SIZE SHILEY#6; AC MODE AT 16; VT - 400; FIO2 - 40%; PEEP - 5. TOLERATING SETTINGS WELL, ON TELE MONITOR CURRENTLY READING NSR WITH HR AT 90 BPM. IV LINE FOUND AT HILDA MIDLINE RUNNING NS AT 100 ML/HR. IV SITE DRESSING C/D/I, NO S/S OF INFECTION OR INFILTRATION. LEFT MITTEN AND LEFT SOFT WRIST RESTRAINT NOTED. NO CIRCULATION ISSUES NOTED. PT HAS G-TUBE WITH NEPRO RUNNING AT 45 ML/HR. NO RESIDUAL. HAS F/C WITH CLEAR YELLOW URINE DRAINING VIA GRAVITY. NEPHROSTOMY NOTED, PATENT, DRAINING GREEN-AMANDA OUTPUT. ON FLEXI-SEAL, PATENT AND NO SIGNS OF LEAKAGE. ALL SAFETY MEASURES IN PLACE: BED IN LOWEST AND LOCKED POSITION, BED ALARM ON, HOB ELEVATED AT ALL TIMES, SIDE RAILS UP X 3, WILL TURN AND REPOSITION AT LEAST Q2H, BED ALARM ON. WILL CONTINUE TO MONITOR PT FOR ANY CHANGES.
[2022-04-19 20:00] VITALS: BP 156/96
[2022-04-20] VITALS: BP 149/82
[2022-04-20] MEDS: BLOOD SUGAR DIAGNOSTIC 1 EACH STRIP IN SCH ×5 (00:02→23:38)
[2022-04-20] MEDS: INSULIN REGULAR, HUMAN 100 UNIT/ML 3 ML VIAL SQ PRN ×4 (00:04→23:39)
[2022-04-20 04:00] VITALS: BP 158/90
[2022-04-20] MEDS: LANTHANUM CARBONATE 500 MG TAB.CHEW GT SCH ×3 (04:23→21:03)
[2022-04-20] MEDS: ACETAMINOPHEN 325 MG TABLET MC PRN (04:52)
[2022-04-20] MEDS: DILTIAZEM HCL 30 MG TABLET GT SCH ×3 (04:53→21:02)
[2022-04-20] MEDS: PANTOPRAZOLE 40 MG/PACK PACK NG SCH ×2 (05:05→17:02)
[2022-04-20 06:08] LABS: BASOPHILS # (AUTO) 0.2 K/uL (0.0-0.2); BASOPHILS % (AUTO) 0.6 % (0.0-2.0); EOSINOPHILS % (AUTO) 2.1 % (0.0-6.0); HEMATOCRIT 22 % (39-51); HEMOGLOBIN 7.4 g/dL (13.5-17.5); LYMPHOCYTES # (AUTO) 2.4 K/uL (0.8-4.8); LYMPHOCYTES % (AUTO) 6.9 % (20.0-44.0); MEAN CORPUSCULAR HGB CONC 34 g/dl (31.0-36.0); MEAN CORPUSCULAR VOLUME 91 fL (80-96); MONOCYTES % (AUTO) 5.8 % (2.0-12.0); NEUTROPHILS # (AUTO) 29.2 K/uL (1.8-8.9); NEUTROPHILS % (AUTO) 84.6 % (43.0-81.0); PLATELET COUNT (AUTO) 224 K/uL (150-450); RED BLOOD CELL COUNT(AUTO) 2.39 MIL/uL (4.5-6.0)
--- NOTE | 2022-04-20 06:26 | NUR ---
RN CLOSING NOTE PT REMAINED STABLE THROUGHOUT THE NIGHT. NO RESPIRATORY DISTRESS NOTED. DUE MEDS GIVEN. NEEDS ATTENDED TO. TURNED AND REPOSITIONED. RESTRAINTS STILL ON. WILL ENDORSE TO AM SHIFT NURSE FOR [facility].
[2022-04-20 06:41] LABS: CREATININE 2.2 mg/dL (0.6-1.3); MAGNESIUM 1.7 mg/dL (1.8-2.4); PHOSPHORUS 5.1 mg/dL (2.5-4.9); POTASSIUM 2.9 mmol/L (3.5-5.1)
[2022-04-20] MEDS: IV 1/2NS 1000 ML 1,000 ML IV PRN ×2 (07:04→18:55)
[2022-04-20 07:57] LABS: WHITE BLOOD COUNT (AUTO) 34.5 K/uL (4.3-11.0)
[2022-04-20 08:00] VITALS: BP 143/70
[2022-04-20] MEDS: BUMETANIDE (1 MG) 1 MG TABLET GT SCH (08:41)
[2022-04-20] MEDS: MULTIVITAMINS,THERAGRAN 1 UDTAB TABLET GT SCH (08:41)
[2022-04-20] MEDS: METOPROLOL TARTRATE 25 MG TABLET GT SCH ×2 (08:42→21:03)
[2022-04-20] MEDS: DAKINS QUARTER STRENGTH (0.125%) 480 ML BOTTLE TOP SCH (08:43)
[2022-04-20] MEDS: THERAHONEY GEL 1.5 OZ TUBE TP SCH (08:43)
[2022-04-20] MEDS: CEFTAZIDIME/AVIBACTAM 0.94 GM in IV NS 0.9% 100 ML IV SCH (10:41)
[2022-04-20] MEDS: POTASSIUM CHLORIDE 20 MEQ POWDER PACKET NG SCH ×2 (11:24→12:10)
[2022-04-20 12:00] VITALS: BP 164/87
[2022-04-20] MEDS ORDERED: Magnesium 1GM/D5W 100ML PREMIX 100 ML IV SCH (12:00)
[2022-04-20 13:34] LABS: IRON, SERUM 127 ug/dl (50-175); TOTAL IRON BINDING CAPACITY 173 ug/dl (250-450)
[2022-04-20 13:56] LABS: BAND % (MANUAL) 5 % (0.0-5.0); BASOPHILS % (MANUAL) 0 % (0.0-2.0); EOSINOPHILS % (MANUAL) 1 % (0-4); LYMPHOCYTES % (MANUAL) 7 % (16-48); MONOCYTES % (MANUAL) 4 % (0-11.0); NEUTROPHILS % (MANUAL) 83 (42-76)
[2022-04-20 14:09] LABS: FERRITIN 2891 ng/mL (8-388)
[2022-04-20 16:00] VITALS: BP 160/86
--- NOTE | 2022-04-20 16:41 | NUR ---
lab sent amicacin level around 1445 approximately. lab confirmed they will not have level for another few hours. Unable to give scheduled dose. holding drug as of now.
[2022-04-20] MEDS ORDERED: D5W IV SCH (17:00)
[2022-04-20] MEDS ORDERED: AMIKACIN IV SCH (17:00)
[2022-04-20] MEDS: ASCORBIC ACID 500 MG TABLET GT SCH (17:02)
--- NOTE | 2022-04-20 18:45 | NUR ---
RN CLOSING NOTE PT IS RESTING IN BED, OBTUNDED. PT ON ORDERED VENT SETTINGS SATING AT 100%. IV ACCESS AT HILDA MIDLINE 1/2 NS @ 100CC/HR. GTF RUNNING NEPRO AT 45ML/HR. TELE READS SR. ALL SAFETY MEASURES/ FALL/ ASPIRATION PRECAUTIONS IN PLACE. WILL ENDORSE TO CLOTH HAND RN FOR HAMILTON.
--- NOTE | 2022-04-20 19:30 | NUR ---
MOTOR VEHICLE PARTS INTERPRETER OPENING NOTE RECEIVED REPORT FROM EDWIGE FOR [facility]. PT IN BED, NON-VERBAL AND OBTUNDED. NO VISIBLE SIGNS OF OF PAIN/DISCOMFORT NOTED AT THIS TIME. ON VENT/TRACH WITH TRACH SIZE SHILEY#6; AC MODE AT 16; VT - 400; FIO2 - 40%; PEEP - 5. TOLERATING SETTINGS WELL, ON TELE MONITOR CURRENTLY READING ST WITH HR >100 BPM. IV ACCESS AT HILDA MIDLINE RUNNING 1/2 NS AT 100 ML/HR. IV SITE DRESSING C/D/I, NO S/S OF INFECTION OR INFILTRATION. LEFT MITTEN AND LEFT SOFT WRIST RESTRAINT NOTED. NO CIRCULATION ISSUES FOUND. PT HAS G-TUBE WITH NEPRO RUNNING AT 45 ML/HR. NO RESIDUAL. HAS F/C WITH CLEAR YELLOW URINE DRAINING VIA GRAVITY. NEPHROSTOMY NOTED, PATENT, DRAINING GREEN-AMANDA OUTPUT. ON FLEXI-SEAL, PATENT AND NO SIGNS OF LEAKAGE. ALL SAFETY MEASURES IN PLACE: BED IN LOWEST AND LOCKED POSITION, BED ALARM ON, HOB ELEVATED AT ALL TIMES, SIDE RAILS UP X 3, WILL TURN AND REPOSITION AT LEAST Q2H, BED ALARM ON. WILL CONTINUE TO MONITOR PT FOR ANY CHANGES.
--- NOTE | 2022-04-20 19:50 | NUR ---
RN NOTE RECEIVED CRITICAL LAB RESULT FOR AMIKACIN TROUGH - 16.2 NOTIFIED PHARMACY.
[2022-04-20 20:00] VITALS: BP 155/109
--- NOTE | 2022-04-20 20:01 | NUR ---
PT RCVD TRACHED WITH SIZE SHILEY 6 ON VENT WITH THE SETTINGS OF AC 16, VT 400,PEEP 5, FIO2 40% AND RICARDA WELL. TRACH IS PATENT AND SECURED. PT IS AWAKE AND NON VERBAL. SUCTION PRN ,VENT PLUGGED INTO RED OUTLET WITH ALARMS ON AND AUDIBLE. WILL CONTINUE TO MONITOR T/O SHIFT.
[2022-04-21] VITALS (7 sets, daily range): BP systolic 128–162; BP diastolic 69–94
--- NOTE | 2022-04-21 04:00 | NUR ---
RN NOTE FOUND PT WITH VOMITUS IN HIS MOUTH AND NECK. PT SHOWS NO SIGNS OF RESPIRATORY DISTRESS UPON ASSESSMENT. O2 SAT AT 100%. ADMINISTERED ZOFRAN PRN ORDERED. WILL CONTINUE TO MONITOR PT.
[2022-04-21] MEDS: IV 1/2NS 1000 ML 1,000 ML IV PRN ×2 (04:16→20:53)
[2022-04-21] MEDS: LANTHANUM CARBONATE 500 MG TAB.CHEW GT SCH ×3 (04:20→20:53)
[2022-04-21] MEDS: ONDANSETRON HCL/PF 4 MG/2 ML VIAL IVP PRN ×2 (04:20→20:53)
[2022-04-21] MEDS: PANTOPRAZOLE 40 MG/PACK PACK NG SCH ×2 (05:26→17:09)
[2022-04-21] MEDS: DILTIAZEM HCL 30 MG TABLET GT SCH ×3 (05:26→20:53)
[2022-04-21] MEDS: BLOOD SUGAR DIAGNOSTIC 1 EACH STRIP IN SCH ×4 (05:37→23:28)
[2022-04-21] MEDS: INSULIN REGULAR, HUMAN 100 UNIT/ML 3 ML VIAL SQ PRN (05:38)
--- NOTE | 2022-04-21 05:49 | NUR ---
RN CLOSING NOTE NO SIGNIFICANT CHANGE THROUGHOUT THE NIGHT. PT SHOWS ST ON TELE MONITOR, WITH HR >100 BPM. O2 SAT AT 100%. ALL DUE MEDS GIVEN. NEEDS ATTENDED TO. TURNED AND REPOSITIONED. WOUND CARE DONE. WILL ENDORSE TO AM SHIFT NURSE FOR [facility].
[2022-04-21 07:28] LABS: BASOPHILS # (AUTO) 0.2 K/uL (0.0-0.2); BASOPHILS % (AUTO) 0.4 % (0.0-2.0); EOSINOPHILS % (AUTO) 0.8 % (0.0-6.0); HEMATOCRIT 22 % (39-51); HEMOGLOBIN 7.1 g/dL (13.5-17.5); LYMPHOCYTES # (AUTO) 1.6 K/uL (0.8-4.8); LYMPHOCYTES % (AUTO) 3.3 % (20.0-44.0); MEAN CORPUSCULAR HGB CONC 33 g/dl (31.0-36.0); MEAN CORPUSCULAR VOLUME 93 fL (80-96); MONOCYTES # (AUTO) 1.8 K/uL (0.1-1.30); MONOCYTES % (AUTO) 3.8 % (2.0-12.0); NEUTROPHILS % (AUTO) 91.7 % (43.0-81.0); PLATELET COUNT (AUTO) 216 K/uL (150-450); RED BLOOD CELL COUNT(AUTO) 2.35 MIL/uL (4.5-6.0)
[2022-04-21 07:33] LABS: CALCIUM, SERUM 8.5 mg/dL (8.5-10.1); CREATININE 2.1 mg/dL (0.6-1.3); PHOSPHORUS 5.4 mg/dL (2.5-4.9); POTASSIUM 3.2 mmol/L (3.5-5.1)
[2022-04-21 07:39] LABS: WHITE BLOOD COUNT (AUTO) 46.9 K/uL (4.3-11.0)
--- NOTE | 2022-04-21 07:39 | NUR ---
PROFESSOR OF COMMUNICATION AND WRITING NOTE PATIENT IN BED AWAKE WITH TRACH TO VENT SETTING ORDERED, ON TELE MONITOR ST HR 120 AT THIS TIME BREATHING SLIGHT LABORED ON G TUBE FEEDING ORDERED, KEEP HOB ELEVATED AT ALL TIME, RT UPPER ARM MID LINE , ON IVF ORDERED , WITH RECTAL TUBER IN PLCE WILL CONT TO MONITOR
[2022-04-21] MEDS: METOPROLOL TARTRATE 25 MG TABLET GT SCH ×2 (08:20→20:53)
[2022-04-21] MEDS: BUMETANIDE (1 MG) 1 MG TABLET GT SCH (08:20)
[2022-04-21] MEDS: MULTIVITAMINS,THERAGRAN 1 UDTAB TABLET GT SCH (08:20)
[2022-04-21] MEDS: DAKINS QUARTER STRENGTH (0.125%) 480 ML BOTTLE TOP SCH (08:21)
[2022-04-21] MEDS: THERAHONEY GEL 1.5 OZ TUBE TP SCH (08:21)
[2022-04-21] MEDS ORDERED: POTASSIUM CHLORIDE 20 MEQ POWDER PACKET GT SCH (10:00)
--- NOTE | 2022-04-21 10:30 | NUR ---
telecommunications manager note spoke with dr bradshaw notified that wbc 46.9 hg 7.1 k 3.2 stated that need to monitor lab work aware that bun 56 creat 2.1
[2022-04-21] MEDS: POTASSIUM CL. PREMIX PERIPHER. 50 ML IV SCH ×3 (10:42→14:36)
--- NOTE | 2022-04-21 10:50 | NUR ---
telecommunications clerk note dr franz made rounds notified that wbc 46.9 no fever at this time,no new orders given at this time will monitor
--- NOTE | 2022-04-21 11:24 | NUR ---
n television mechanic note id doctor at bedside notified wbc 46.9
--- NOTE | 2022-04-21 12:38 | NUR ---
JUNIOR AUTOMATION ENGINEER NOTE STOOL FOR CDIF COLLECTED ORDERED, SENT TO LAB
[2022-04-21] MEDS: CEFTAZIDIME/AVIBACTAM 0.94 GM in IV NS 0.9% 100 ML IV SCH (12:40)
[2022-04-21] MEDS: NEPRO 1,000 ML BOTTLE GT PRN (12:46)
[2022-04-21 13:07] LABS: OCCULT BLOOD STOOL NEGATIVE (NEGATIVE)
[2022-04-21] MEDS: EPOETIN ALFA-EPBX 10,000 UNIT/ML VIAL IV SCH (14:57)
--- NOTE | 2022-04-21 15:51 | NUR ---
telegraph office manager note anamaria tejeda at bedside ,sacral debridement done ,keep clean dry , all needs attended, turn reposition
[2022-04-21] MEDS: ASCORBIC ACID 500 MG TABLET GT SCH (17:09)
--- NOTE | 2022-04-21 17:56 | NUR ---
CUT OFF TENDER GLASS NOTE TURN REPOSITION ,KEEP CLEAN DRY , RECTAL TUBE FLUSHED , ON IVF ORDERED ON G TUBE FEEDING ORDERED ,KEEP HOB ELEVATED AT ALL TIME
--- NOTE | 2022-04-21 18:24 | NUR ---
TIMBER INCISOR OPERATOR NOTE PATIENT IN BED , ALL NEEDS ATTENDED , WITH TRACH TO VENT SETTING ORDERED ,KEEP HOB ELEVATED AT ALL TIME, WITH G TUBE FEEDING ORDERED, WITH RECTAL TUBE IN PLACE , RT NEPHROSTOMY IN PLACE, WITH TORRES URINE COLOR, BED IN LOWEST AND LOCKED POSITION , CALL LIGHT WITHIN REACH, TRACH CARE DONE NO ,SUCTION F DONE
--- NOTE | 2022-04-21 19:15 | NUR ---
RN NOTE RECEIVED PATIENT IN BED ORIENTED TO NAME, IN NO ACUTE DISTRESS, ON TRACH SHILEY#6 TO MECHANICAL VENT WITH SETTINGS PRESCRIBED: AC 16, TV 400, FIO2 40%, PEEP 5, SATURATION AT 100%, ST ON THE MONITOR, HR IS 103. HILDA MIDLINE PATENT AND FLUSHING WELL, WITH 1/2 NS INFUSING AT 100 ML/HR. GTUBE IN PLACE, POSITIVE PLACEMENT NOTED, WITH ONGOING TUBE FEEDING OF NEPRO AT 45 ML/HR. KNUTSON CATH DRAINING TO A CLEAR, YELLOW OUTPUT. NEPHROSTOMY TUBE INTACT DRAINING TO GRAVITY. RECTAL TUBE IN PLACE. L SOFT WRIST RESTRAINTS IN PLACE, SKIN AND CIRCULATION CHECKED AND ARE WNL. SAFETY MEASURES IN PLACE, BED IS LOCKED AND AT LOWEST POSITION, BED ALARM ON, SIDE RAILS UP X 2, CALL LIGHT WITHIN REACH OF PATIENT. WILL CONT TO MONITOR AND REASSESS.
[2022-04-21 22:23] LABS: BAND % (MANUAL) 2 % (0.0-5.0); EOSINOPHILS % (MANUAL) 4 % (0-4); LYMPHOCYTES % (MANUAL) 7 % (16-48); MONOCYTES % (MANUAL) 3 % (0-11.0); NEUTROPHILS % (MANUAL) 84 (42-76)
[2022-04-22] VITALS (13 sets, daily range): BP systolic 117–155; BP diastolic 63–86
[2022-04-22] MEDS: DILTIAZEM HCL 30 MG TABLET GT SCH ×3 (06:30→21:03)
[2022-04-22] MEDS: BLOOD SUGAR DIAGNOSTIC 1 EACH STRIP IN SCH ×3 (06:31→18:10)
[2022-04-22] MEDS: PANTOPRAZOLE 40 MG/PACK PACK NG SCH ×2 (06:31→18:09)
[2022-04-22] MEDS: LANTHANUM CARBONATE 500 MG TAB.CHEW GT SCH ×3 (06:31→21:03)
[2022-04-22 07:12] LABS: BASOPHILS # (AUTO) 0.1 K/uL (0.0-0.2); BASOPHILS % (AUTO) 0.2 % (0.0-2.0); EOSINOPHILS % (AUTO) 1.3 % (0.0-6.0); LYMPHOCYTES # (AUTO) 1.6 K/uL (0.8-4.8); LYMPHOCYTES % (AUTO) 4.2 % (20.0-44.0); MEAN CORPUSCULAR HGB CONC 34 g/dl (31.0-36.0); MEAN CORPUSCULAR VOLUME 91 fL (80-96); MONOCYTES # (AUTO) 2.1 K/uL (0.1-1.30); MONOCYTES % (AUTO) 5.6 % (2.0-12.0); NEUTROPHILS # (AUTO) 32.9 K/uL (1.8-8.9); NEUTROPHILS % (AUTO) 88.7 % (43.0-81.0); PLATELET COUNT (AUTO) 188 K/uL (150-450); RED BLOOD CELL COUNT(AUTO) 2.13 MIL/uL (4.5-6.0)
[2022-04-22] MEDS: IV 1/2NS 1000 ML 1,000 ML IV PRN ×2 (07:30→22:34)
--- NOTE | 2022-04-22 07:30 | NUR ---
RN OPENING NOTE PATIENT IS IN BED, AWAKE, NON-VERBAL. WITH TRACHEOSTOMY TO MECHANICA VENTILATOR WITH THE FOLLOWING SETTINGS: AC MODE, RR 16, TV 400, FIO2 40%, PEEP 5. BREATHING UNLABORED AND NOT IN ANY FORM OF DISTRESS. SINUS TACHYCARDIA ON MARINE ELECTRONICS TECHNICIAN. KNUTSON CATHETER INTACT. FLEXI SEAL INTACT. NEPHROSTOMY TUBE INTACT. G-TUBE INTACT AND INFUSING WITH NEPRO AT 45 ML/HR. BED IS LOCKED IN LOWEST POSITION, 3 SIDE RAILS UP, CALL LIGHT WITHIN REACH. WILL CONTINUE TO MONITOR THROUGHOUT SHIFT.
[2022-04-22 07:45] LABS: HEMATOCRIT 19 % (39-51); HEMOGLOBIN 6.5 g/dL (13.5-17.5); WHITE BLOOD COUNT (AUTO) 37.1 K/uL (4.3-11.0)
[2022-04-22 07:48] LABS: CALCIUM, SERUM 8.5 mg/dL (8.5-10.1); MAGNESIUM 1.9 mg/dL (1.8-2.4); PHOSPHORUS 4.8 mg/dL (2.5-4.9); POTASSIUM 3.6 mmol/L (3.5-5.1)
[2022-04-22] MEDS: MULTIVITAMINS,THERAGRAN 1 UDTAB TABLET GT SCH (09:54)
[2022-04-22] MEDS: METOPROLOL TARTRATE 25 MG TABLET GT SCH ×2 (09:55→21:04)
[2022-04-22] MEDS: BUMETANIDE (1 MG) 1 MG TABLET GT SCH (09:55)
[2022-04-22] MEDS: DAKINS QUARTER STRENGTH (0.125%) 480 ML BOTTLE TOP SCH (09:56)
[2022-04-22] MEDS: THERAHONEY GEL 1.5 OZ TUBE TP SCH (09:56)
[2022-04-22] MEDS: CEFTAZIDIME/AVIBACTAM 0.94 GM in IV NS 0.9% 100 ML IV SCH (12:21)
[2022-04-22] MEDS: ONDANSETRON HCL/PF 4 MG/2 ML VIAL IVP PRN ×2 (13:42→21:04)
--- NOTE | 2022-04-22 14:00 | NUR ---
RN NOTE PATIENT HAD EPISODE OF VOMITING. ZOFRAN GIVEN ORDERED.
[2022-04-22 17:15] LABS: BAND % (MANUAL) 3 % (0.0-5.0); EOSINOPHILS % (MANUAL) 1 % (0-4); LYMPHOCYTES % (MANUAL) 6 % (16-48); NEUTROPHILS % (MANUAL) 90 (42-76)
--- NOTE | 2022-04-22 17:23 | NUR ---
RN NOTE 1 UNIT PRBC TRANSFUSION STARTED. WILL CONTINUE TO MONITOR FOR UNTOWARD SIGNS AND SYMPTOMS.
[2022-04-22] MEDS: ASCORBIC ACID 500 MG TABLET GT SCH (18:09)
--- NOTE | 2022-04-22 19:16 | NUR ---
RN CLOSING NOTE PATIENT REMAINED STABLE THROUGHOUT SHIFT. TOLERATES MECHANICAL VENTILATOR SETTINGS WITH O2 SAT AT 100%. STILL WITH ONGOING BLOOD TRANSFUSION, NO TRANSFUSION REACTION NOTED. KNUTSON CATHETER INTACT. IV LINE REMAINS INTACT AND PATENT. NEPHROSTOMY TUBE AND FLEXI SEAL REMAIN INTACT. ALL HOSPITAL SAFETY PRECAUTIONS IN PLACE. WILL ENDORSE TO CHILD CARE COUNSELOR NURSE.
--- NOTE | 2022-04-22 20:37 | NUR ---
RT NOTE Received pt on ordered vent settings. Patient asleep and does not appear to be in respiratory distress. RR in 30's, but seems to be baseline. SPO2 100% on assessment. Orally suctioned and tracheally suctioned x2. Trach is secured and patent. Emergency trach and ambu bag are bedside.
[2022-04-22] MEDS: ACETAMINOPHEN 325 MG TABLET MC PRN (21:21)
--- NOTE | 2022-04-22 23:50 | NUR ---
RN NOTE RECEIVED PATIENT IN BED ORIENTED TO NAME, IN NO ACUTE DISTRESS, ON TRACH SHILEY#6 TO MECHANICAL VENT WITH SETTINGS PRESCRIBED: AC 16, TV 400, FIO2 40%, PEEP 5, SATURATION AT 100%, ST ON THE MONITOR, HR IS 119. HILDA MIDLINE PATENT AND FLUSHING WELL, WITH ONGOING TRANSFUSION OF PRBC, NO TRANSFUSION REACTIONS NOTED. GTUBE IN PLACE, POSITIVE PLACEMENT NOTED, WITH ONGOING TUBE FEEDING OF NEPRO AT 45 ML/HR. KNUTSON CATH DRAINING TO A CLEAR, YELLOW OUTPUT. NEPHROSTOMY TUBE INTACT DRAINING TO GRAVITY. RECTAL TUBE IN PLACE. L SOFT WRIST RESTRAINTS IN PLACE, SKIN AND CIRCULATION CHECKED AND ARE WNL. SAFETY MEASURES IN PLACE, BED IS LOCKED AND AT LOWEST POSITION, BED ALARM ON, SIDE RAILS UP X 2, CALL LIGHT WITHIN REACH OF PATIENT. WILL CONT TO MONITOR AND REASSESS.
[2022-04-23] VITALS: BP 119/66
[2022-04-23] MEDS: BLOOD SUGAR DIAGNOSTIC 1 EACH STRIP IN SCH ×4 (00:08→18:53)
[2022-04-23 04:00] VITALS: BP 121/67
[2022-04-23] MEDS: PANTOPRAZOLE 40 MG/PACK PACK NG SCH ×2 (05:24→18:53)
[2022-04-23] MEDS: LANTHANUM CARBONATE 500 MG TAB.CHEW GT SCH ×3 (05:24→20:31)
[2022-04-23] MEDS: DILTIAZEM HCL 30 MG TABLET GT SCH ×3 (05:25→20:33)
[2022-04-23] MEDS: IV 1/2NS 1000 ML 1,000 ML IV PRN ×2 (06:32→22:33)
--- NOTE | 2022-04-23 07:30 | NUR ---
RN OPENING NOTE RECEIVED PATIENT IN BED, OBTUNDED. NO S/S OF OR SOB ACUTE DISTRESS, ON TRACH SHILEY#6 TO MECHANICAL VENT WITH SETTINGS PRESCRIBED: AC 16, TV 400, FIO2 40%, PEEP 5, SATURATION AT 100%, ST ON THE MONITOR, HR IS 99. HILDA MIDLINE PATENT AND FLUSHING WELL 1/2 NS @100MLS/HR. GTUBE IN PLACE, POSITIVE PLACEMENT NOTED, WITH ONGOING TUBE FEEDING OF NEPRO AT 45 ML/HR. KNUTSON CATH DRAINING TO A CLEAR, YELLOW OUTPUT. NEPHROSTOMY TUBE INTACT DRAINING TO GRAVITY. RECTAL TUBE IN PLACE. L SOFT WRIST RESTRAINTS IN PLACE, SKIN AND CIRCULATION CHECKED AND ARE WNL. SAFETY MEASURES IN PLACE, BED IS LOCKED AND AT LOWEST POSITION, BED ALARM ON, SIDE RAILS UP X 2, CALL LIGHT WITHIN REACH OF PATIENT. WILL CONT TO MONITOR AND REASSESS
[2022-04-23 07:42] LABS: BASOPHILS # (AUTO) 0.1 K/uL (0.0-0.2); BASOPHILS % (AUTO) 0.3 % (0.0-2.0); EOSINOPHILS % (AUTO) 0.8 % (0.0-6.0); HEMATOCRIT 26 % (39-51); HEMOGLOBIN 8.7 g/dL (13.5-17.5); LYMPHOCYTES # (AUTO) 0.7 K/uL (0.8-4.8); LYMPHOCYTES % (AUTO) 1.6 % (20.0-44.0); MEAN CORPUSCULAR HGB CONC 33 g/dl (31.0-36.0); MEAN CORPUSCULAR VOLUME 94 fL (80-96); MONOCYTES # (AUTO) 1.5 K/uL (0.1-1.30); MONOCYTES % (AUTO) 3.6 % (2.0-12.0); NEUTROPHILS # (AUTO) 38.3 K/uL (1.8-8.9); NEUTROPHILS % (AUTO) 93.7 % (43.0-81.0); PLATELET COUNT (AUTO) 153 K/uL (150-450); RED BLOOD CELL COUNT(AUTO) 2.79 MIL/uL (4.5-6.0)
[2022-04-23 07:50] LABS: WHITE BLOOD COUNT (AUTO) 40.8 K/uL (4.3-11.0)
[2022-04-23 08:00] VITALS: BP 111/77
[2022-04-23 08:14] LABS: CALCIUM, SERUM 8.8 mg/dL (8.5-10.1); PHOSPHORUS 4.2 mg/dL (2.5-4.9); POTASSIUM 3.5 mmol/L (3.5-5.1)
[2022-04-23] MEDS: BUMETANIDE (1 MG) 1 MG TABLET GT SCH (08:48)
[2022-04-23] MEDS: METOPROLOL TARTRATE 25 MG TABLET GT SCH ×2 (08:48→20:31)
[2022-04-23] MEDS: MULTIVITAMINS,THERAGRAN 1 UDTAB TABLET GT SCH (08:48)
[2022-04-23 10:07] LABS: LYMPHOCYTES % (MANUAL) 2 % (16-48); MONOCYTES % (MANUAL) 3 % (0-11.0); NEUTROPHILS % (MANUAL) 95 (42-76)
[2022-04-23] MEDS: THERAHONEY GEL 1.5 OZ TUBE TP SCH (11:54)
[2022-04-23] MEDS: DAKINS QUARTER STRENGTH (0.125%) 480 ML BOTTLE TOP SCH (11:54)
[2022-04-23] MEDS: CEFTAZIDIME/AVIBACTAM 0.94 GM in IV NS 0.9% 100 ML IV SCH (11:56)
[2022-04-23 12:00] VITALS: BP 128/77
[2022-04-23 16:00] VITALS: BP 98/71
[2022-04-23] MEDS: ACETAMINOPHEN 325 MG TABLET MC PRN (16:12)
[2022-04-23] MEDS ORDERED: AMIKACIN 250 MG in IV D5W 100 ML IV SCH (17:00)
--- NOTE | 2022-04-23 17:31 | NUR ---
RN NOTE SPOKE TO PHARMACY: HOLD AMIKACIN TODAY DUE TO HIGH LEVEL. CURRENTLY PENDING NEXT TROUGH LEVEL. PHARMACY WILL RE-DOSE IF NECESSARY.
[2022-04-23] MEDS: ASCORBIC ACID 500 MG TABLET GT SCH (18:53)
--- NOTE | 2022-04-23 19:20 | NUR ---
RN NOTE RECEIVED PATIENT IN BED ORIENTED TO NAME, IN NO ACUTE DISTRESS, ON TRACH SHILEY#6 TO MECHANICAL VENT WITH SETTINGS PRESCRIBED: AC 16, TV 400, FIO2 40%, PEEP 5, SATURATION AT 100%, ST ON THE MONITOR, HR IS 115. HILDA MIDLINE PATENT AND FLUSHING WELL, 1/2 NS INFUSING AT 100 ML/HR. GTUBE IN PLACE, POSITIVE PLACEMENT NOTED, CLAMPED. NOTED LEAKAGE AT MEDICATION PORT. KNUTSON CATH DRAINING TO A CLEAR, YELLOW OUTPUT. NEPHROSTOMY TUBE INTACT DRAINING TO GRAVITY. RECTAL TUBE IN PLACE. L SOFT WRIST RESTRAINTS IN PLACE, SKIN AND CIRCULATION CHECKED AND ARE WNL. SAFETY MEASURES IN PLACE, BED IS LOCKED AND AT LOWEST POSITION, BED ALARM ON, SIDE RAILS UP X 2, CALL LIGHT WITHIN REACH OF PATIENT. WILL CONT TO MONITOR AND REASSESS.
--- NOTE | 2022-04-23 19:27 | NUR ---
RN CLOSING NOTE PATIENT IN BED, OBTUNDED. NO S/S OF OR SOB ACUTE DISTRESS, ON TRACH SHILEY#6 TO MECHANICAL VENT WITH SETTINGS PRESCRIBED: AC 16, TV 400, FIO2 40%, PEEP 5, SATURATION AT 100%, ST ON THE MONITOR, HR IS 101. HILDA MIDLINE PATENT AND FLUSHING WELL 1/2 NS @100MLS/HR. GTUBE IN PLACE, DISCONTINUED FEEDING PER DR ORDER. KNUTSON CATH DRAINING TO A CLEAR, YELLOW OUTPUT. NEPHROSTOMY TUBE INTACT DRAINING TO GRAVITY. RECTAL TUBE IN PLACE. L SOFT WRIST RESTRAINTS IN PLACE, SKIN AND CIRCULATION CHECKED AND ARE WNL. SAFETY MEASURES IN PLACE, BED IS LOCKED AND AT LOWEST POSITION, BED ALARM ON, SIDE RAILS UP X 2, CALL LIGHT WITHIN REACH OF PATIENT. WILL ENDORSE CONTINUITY OF CARE TO TOOLING SPECIALIST NURSE.
--- NOTE | 2022-04-23 19:45 | NUR ---
Patient received on current vent settings. Patient is saturating well SpO2 100%, patient seems to be tachycardic and tachypneic RN aware. Airway patent and secured. Vent alarms on and functional, vent plugged in red outlet. Ambu bag at bedside. Will continue to monitor.
[2022-04-23 20:00] VITALS: BP 134/83
[2022-04-23] MEDS: LORAZEPAM INJ 2 MG/ML VIAL IV PRN (22:51)
[2022-04-24] VITALS: BP 124/86
[2022-04-24] MEDS ORDERED: DILTIAZEM HCL IV 125 MG in IV NS 0.9% 100 ML IV PRN ×2 (00:30→01:00)
--- NOTE | 2022-04-24 00:31 | NUR ---
RN NOTE NOTED PATIENT HR SUSTAINING AT 130-140'S, CALLED DR MOSLEY, MADE AWARE OF LEAKING GTUBE PENDING REPLACEMENT. ORDER RECEIVED TO START CARDIZEM DRIP AT FIXED RATE OF 10 MG/HR.
[2022-04-24] MEDS: BLOOD SUGAR DIAGNOSTIC 1 EACH STRIP IN SCH ×4 (00:33→18:00)
[2022-04-24] MEDS ORDERED: DILTIAZEM HCL 25 MG IV ONE ×2 (00:37→00:38)
[2022-04-24] MEDS: MORPHINE SULFATE INJ 2 MG/ML DISP.SYRIN IV PRN ×2 (00:48→10:14)
[2022-04-24] MEDS: DILTIAZEM HCL IV 125 MG in IV NS 0.9% 100 ML IV PRN ×2 (01:10→10:57)
[2022-04-24] MEDS: LORAZEPAM INJ 2 MG/ML VIAL IV PRN (03:19)
[2022-04-24 04:00] VITALS: BP 131/72
[2022-04-24] MEDS: LANTHANUM CARBONATE 500 MG TAB.CHEW GT SCH ×3 (04:42→21:33)
[2022-04-24] MEDS: PANTOPRAZOLE 40 MG/PACK PACK NG SCH ×2 (05:57→17:32)
--- NOTE | 2022-04-24 05:57 | NUR ---
RN NOTE UNABLE TO ADMINISTER MEDS VIA PEG, TUBE LEAKING PENDING CONSULT WITH GI FOR REPLACEMENT.
[2022-04-24 07:13] LABS: BASOPHILS # (AUTO) 0.1 K/uL (0.0-0.2); BASOPHILS % (AUTO) 0.4 % (0.0-2.0); EOSINOPHILS % (AUTO) 1.7 % (0.0-6.0); HEMATOCRIT 22 % (39-51); HEMOGLOBIN 7.3 g/dL (13.5-17.5); LYMPHOCYTES # (AUTO) 1.3 K/uL (0.8-4.8); LYMPHOCYTES % (AUTO) 5.7 % (20.0-44.0); MEAN CORPUSCULAR HGB CONC 34 g/dl (31.0-36.0); MEAN CORPUSCULAR VOLUME 93 fL (80-96); MONOCYTES # (AUTO) 1.8 K/uL (0.1-1.30); MONOCYTES % (AUTO) 7.9 % (2.0-12.0); NEUTROPHILS # (AUTO) 19.6 K/uL (1.8-8.9); NEUTROPHILS % (AUTO) 84.3 % (43.0-81.0); PLATELET COUNT (AUTO) 156 K/uL (150-450); RED BLOOD CELL COUNT(AUTO) 2.33 MIL/uL (4.5-6.0); WHITE BLOOD COUNT (AUTO) 23.2 K/uL (4.3-11.0)
[2022-04-24 07:50] LABS: CALCIUM, SERUM 8.5 mg/dL (8.5-10.1); CREATININE 2.1 mg/dL (0.6-1.3); PHOSPHORUS 3.6 mg/dL (2.5-4.9); POTASSIUM 3.1 mmol/L (3.5-5.1)
[2022-04-24 08:00] VITALS: BP 122/68
[2022-04-24] MEDS: METOPROLOL TARTRATE 25 MG TABLET GT SCH ×2 (10:12→21:34)
[2022-04-24] MEDS: BUMETANIDE (1 MG) 1 MG TABLET GT SCH (10:12)
[2022-04-24] MEDS: MULTIVITAMINS,THERAGRAN 1 UDTAB TABLET GT SCH (10:12)
[2022-04-24] MEDS: THERAHONEY GEL 1.5 OZ TUBE TP SCH (10:15)
[2022-04-24] MEDS: DAKINS QUARTER STRENGTH (0.125%) 480 ML BOTTLE TOP SCH (10:16)
[2022-04-24] MEDS: CEFTAZIDIME/AVIBACTAM 0.94 GM in IV NS 0.9% 100 ML IV SCH (10:55)
[2022-04-24] MEDS ORDERED: AMIKACIN 250 MG in IV D5W 100 ML IV SCH ×2 (11:00→13:00)
[2022-04-24] MEDS ORDERED: POTASSIUM CHLORIDE 10 MEQ TABLET.SA PO ONE (11:00)
[2022-04-24] MEDS: IV 1/2NS 1000 ML 1,000 ML IV PRN (11:10)
[2022-04-24 12:00] VITALS: BP 108/59
[2022-04-24] MEDS ORDERED: POTASSIUM CL. PREMIX PERIPHER. 50 ML IV SCH (12:00)
[2022-04-24] MEDS: DEXTROSE 50%-WATER 50 ML DISP.SYRIN IV PRN (12:41)
[2022-04-24 16:00] VITALS: BP 117/67
[2022-04-24] MEDS: POTASSIUM CL. PREMIX PERIPHER. 50 ML IV SCH ×3 (16:28→18:54)
[2022-04-24] MEDS: ASCORBIC ACID 500 MG TABLET GT SCH (17:32)
[2022-04-24 20:00] VITALS: BP 128/79
--- NOTE | 2022-04-24 22:52 | NUR ---
DASHA RN OPENING NOTE PT RECEIVED IN BED, NON-VERBAL, OBTUNDED, OPENS EYES. PT ON VENT WITH SETTINGS FOLLOWS: SHILEY #6, AC 16, TV 400, FIO2 40%, PEEP 5 WITH CURRENT O2SAT OF 100%; NO S/S OF RESP DISTRESS, NO SOB OR COUGH, NON-LABORED AND EQUAL BREATHING; APPEARS COMFORTABLE OVERALL. PT ATTACHED TO EXTERNAL MONITOR, CURRENTLY SR WITH HR OF 99. FLEXISEAL INTACT AND PATENT, NO SIGNS OF LEAKING, DRAINING STOOL THAT IS BROWN IN COLOR. KNUTSON AND RIGHT-SIDED NEPHROSTOMY INTACT AND PATENT, NO SIGNS OF LEAKING, DRAINING CLEAR AND YELLOW URINE. PT NOTED TO HAVE LEFT WRIST MITTEN; NO SIGNS OF IMPAIRED SKIN OR CIRCULATION; WILL PROVIDE PT WITH RELEASE OF RESTRAINTS AND HYGIENE. GTD C/D/I; GTF ON HOLD D/T TUBING LEAKING. HILDA MIDLINE INTACT AND PATENT, FLUSHES EASILY WITH NO RESISTANCE; CURRENTLY HAS POTASSIUM INFUSING AT 50 ML/HR AND CARDIZEM AT 10 MG/HR. BED IN LOWEST POSITION, CALL LIGHT WITHIN REACH, SIDE RAILS UP X3. WILL CONTINUE TO MONITOR THROUGHOUT THE NIGHT.
[2022-04-25] VITALS: BP 107/65
[2022-04-25] MEDS: BLOOD SUGAR DIAGNOSTIC 1 EACH STRIP IN SCH ×4 (00:08→17:10)
[2022-04-25] MEDS: DILTIAZEM HCL IV 125 MG in IV NS 0.9% 100 ML IV PRN ×2 (01:10→15:07)
[2022-04-25 04:00] VITALS: BP 120/67
[2022-04-25] MEDS: IV 1/2NS 1000 ML 1,000 ML IV PRN ×2 (04:21→15:24)
[2022-04-25] MEDS: LANTHANUM CARBONATE 500 MG TAB.CHEW GT SCH ×3 (04:23→21:00)
[2022-04-25] MEDS: PANTOPRAZOLE 40 MG/PACK PACK NG SCH ×2 (06:18→13:32)
--- NOTE | 2022-04-25 06:53 | NUR ---
DASHA RN CLOSING NOTE PT REMAINS IN BED, NON-VERBAL, OBTUNDED, OPENS EYES. PT REMAINS ON SAME VENT SETTINGS; TOLERATED VENT SETTINGS WELL; O2SAT RANGED FROM 99%- 100%; NO S/S OF RESP DISTRESS, NO SOB OR COUGH, NON-LABORED AND EQUAL BREATHING. PT ATTACHED TO EXTERNAL MONITOR, SR WITH HR RANGING FROM 83- 99. FLEXISEAL INTACT AND PATENT, NO SIGNS OF LEAKING, DRAINING STOOL THAT IS BROWN IN COLOR; FLEXISEAL BAG CHANGED. KNUTSON AND RIGHT-SIDED NEPHROSTOMY INTACT AND PATENT, NO SIGNS OF LEAKING; KNUTSON DRAINING CLEAR AND YELLOW URINE; NEPHROSTOMY DRAINING URINE THAT IS TORRES IN COLOR AND SLIGHTLY THICK IN CONSISTENCY. LEFT WRIST MITTEN AND LEFT SOFT WRIST RESTRAINT REMAIN IN PLACE WITH NO SIGNS OF IMPAIRED SKIN OR CIRCULATION; PROVIDED PT WITH RELEASE OF RESTRAINTS AND HYGIENE. GTD C/D/I; CONTINUES TO HAVE LEAK. HILDA MIDLINE INTACT AND PATENT, FLUSHES EASILY WITH NO RESISTANCE; 1/2 NS INFUSING AT 100 ML/HR AND CARDIZEM AT 10 MG/HR. ALL DUE MEDS ADMINISTERED DURING THE NIGHT. BED IN LOWEST POSITION, CALL LIGHT WITHIN REACH, SIDE RAILS UP X3. WILL ENDORSE TO DAYSHIFT NURSE TO CONTINUE CARE.
--- NOTE | 2022-04-25 07:30 | NUR ---
RN OPENING NOTE PT OBSERVED IN BED WITH HOB >30 AND ON MECHANICAL VENT WITH ALL PRESCRIBED SETTINGS TOLERATING WELL WITH NO SIGNS OF DISTRESS OR LABORED BREATHING O2 SAT 100%. PT IS A/OX1 AND NON VERBAL. PT IS ON TELE MONITOR AT THIS TIME SR 83 - [address] BPM. FLEXISE[address] IS IN PLACE AND FC IS IN PLACE DRAINING URINE TO GRAVITY. PT HAS SOFT LEFT WRIST RESTRAINT AND SOFT MITTEN. PT IS NPO AT THIS TIME EXCEPT MEDS DUE TO GTUBE LEAK IS AWARE AT THIS TIME NO FEEDING INFUSING. IV ACCESS R UA MIDLINE INFUSING WITH 1/2 NS @100ML/HR AND CARDIZEM @10ML/HR. BED IS LOCKED IN LOWEST POSITION X2 BED RAILS UP AND ALL HOSPITAL SAFETY MEASURES ARE IN PLACE. WILL CONTINUE TO MONITOR THIS SHIFT.
[2022-04-25 07:38] LABS: CALCIUM, SERUM 8.2 mg/dL (8.5-10.1); CREATININE 2.1 mg/dL (0.6-1.3); POTASSIUM 3.2 mmol/L (3.5-5.1)
[2022-04-25 07:44] LABS: BASOPHILS # (AUTO) 0.1 K/uL (0.0-0.2); BASOPHILS % (AUTO) 0.2 % (0.0-2.0); EOSINOPHILS % (AUTO) 3.7 % (0.0-6.0); HEMATOCRIT 21 % (39-51); LYMPHOCYTES # (AUTO) 1.2 K/uL (0.8-4.8); LYMPHOCYTES % (AUTO) 5.5 % (20.0-44.0); MEAN CORPUSCULAR HGB CONC 33 g/dl (31.0-36.0); MEAN CORPUSCULAR VOLUME 93 fL (80-96); MONOCYTES # (AUTO) 2.1 K/uL (0.1-1.30); MONOCYTES % (AUTO) 9.4 % (2.0-12.0); NEUTROPHILS # (AUTO) 17.9 K/uL (1.8-8.9); NEUTROPHILS % (AUTO) 81.2 % (43.0-81.0); PLATELET COUNT (AUTO) 183 K/uL (150-450); RED BLOOD CELL COUNT(AUTO) 2.27 MIL/uL (4.5-6.0)
[2022-04-25 07:54] LABS: MAGNESIUM 1.7 mg/dL (1.8-2.4); PHOSPHORUS 3.4 mg/dL (2.5-4.9)
[2022-04-25 08:00] VITALS: BP 100/61
[2022-04-25] MEDS: METOPROLOL TARTRATE 25 MG TABLET GT SCH ×2 (09:00→21:00)
[2022-04-25] MEDS: MULTIVITAMINS,THERAGRAN 1 UDTAB TABLET GT SCH (09:37)
[2022-04-25] MEDS: BUMETANIDE (1 MG) 1 MG TABLET GT SCH (09:37)
[2022-04-25] MEDS: DAKINS QUARTER STRENGTH (0.125%) 480 ML BOTTLE TOP SCH (09:47)
[2022-04-25] MEDS: THERAHONEY GEL 1.5 OZ TUBE TP SCH (09:47)
[2022-04-25] MEDS ORDERED: POTASSIUM CL. PREMIX PERIPHER. 50 ML IV SCH (11:30)
[2022-04-25] MEDS ORDERED: Magnesium 1GM/D5W 100ML PREMIX 100 ML IV SCH ×2 (11:30→15:00)
[2022-04-25] MEDS: CEFTAZIDIME/AVIBACTAM 0.94 GM in IV NS 0.9% 100 ML IV SCH (11:41)
[2022-04-25] MEDS: INSULIN REGULAR, HUMAN 100 UNIT/ML 3 ML VIAL SQ PRN ×2 (11:49→17:13)
[2022-04-25] MEDS: IV NS 0.9% 250 ML IV PRN (11:51)
[2022-04-25 12:00] VITALS: BP 108/64
[2022-04-25] MEDS: ASCORBIC ACID 500 MG TABLET GT SCH (13:32)
[2022-04-25 16:00] VITALS: BP 131/82
[2022-04-25] MEDS: POTASSIUM CL. PREMIX PERIPHER. 50 ML IV SCH ×3 (17:06→19:24)
--- NOTE | 2022-04-25 19:21 | NUR ---
RN CLOSING NOTE PT OBSERVED IN BED WITH HOB >30 AND ON MECHANICAL VENT WITH ALL PRESCRIBED SETTINGS TOLERATING WELL WITH NO SIGNS OF DISTRESS OR LABORED BREATHING O2 SAT 100%. PT IS A/OX1 AND NON VERBAL. PT IS ON TELE MONITOR AT THIS TIME SR 83 - 104 BPM. FLEXISEAL IS IN PLACE -40ML AND FC IS IN PLACE DRAINING URINE TO GRAVITY -700ML. PT HAS SOFT LEFT WRIST RESTRAINT AND SOFT MITTEN. PT IS NPO AT THIS TIME AND DID NOT ADMINISTER GTUBE MEDS AFTER MORNING MEDS DUE TO INCREASING LEAKAGE MD IS AWARE AT THIS TIME NO FEEDING INFUSING. IV ACCESS R UA MIDLINE INFUSING WITH 1/2 NS @100ML/HR AND CARDIZEM @10ML/HR. BED IS LOCKED IN LOWEST POSITION X2 BED RAILS UP AND ALL HOSPITAL SAFETY MEASURES ARE IN PLACE. WILL ENDORSE TO PATIENT ASSESSMENT COORDINATOR NURSE FOR HAMILTON.
[2022-04-25 20:00] VITALS: BP 101/58
[2022-04-25] MEDS: LORAZEPAM INJ 2 MG/ML VIAL IV PRN (23:32)
--- NOTE | 2022-04-25 23:36 | NUR ---
RN NOTE PT NOTED TO BE TACHYPNEIC WITH RR OF 54 AND APPEARS RESTLESS. PT ADMINISTERED ATIVAN. WILL MONITOR FOR EFFECTIVENESS.
[2022-04-26] VITALS (13 sets, daily range): BP systolic 91–126; BP diastolic 47–70
[2022-04-26] MEDS: BLOOD SUGAR DIAGNOSTIC 1 EACH STRIP IN SCH ×4 (00:53→18:30)
--- NOTE | 2022-04-26 00:53 | NUR ---
RN NOTE ALL MEDS SCHEDULED FOR 2100 HELD DUE TO GT LEAKING.
--- NOTE | 2022-04-26 01:06 | NUR ---
DASHA RN OPENING NOTE PT RECEIVED IN BED, NON-VERBAL, OBTUNDED, OPENS EYES. PT ON VENT WITH SETTINGS FOLLOWS: SHILEY #6, AC 16, TV 400, FIO2 40%, PEEP 5 WITH CURRENT O2SAT OF 100%; NO S/S OF RESP DISTRESS, NO SOB OR COUGH, NON-LABORED AND EQUAL BREATHING; APPEARS COMFORTABLE OVERALL. PT ATTACHED TO EXTERNAL MONITOR, CURRENTLY ST WITH HR OF 109. FLEXISEAL INTACT AND PATENT, NO SIGNS OF LEAKING, DRAINING STOOL THAT IS BROWN IN COLOR. KNUTSON AND RIGHT-SIDED NEPHROSTOMY INTACT AND PATENT, NO SIGNS OF LEAKING. PT NOTED TO HAVE LEFT WRIST MITTEN AND LEFT WRIST SOFT RESTRAINT; NO SIGNS OF IMPAIRED SKIN OR CIRCULATION; WILL PROVIDE PT WITH RELEASE OF RESTRAINTS AND HYGIENE. GTD C/D/I. HILDA MIDLINE INTACT AND PATENT, FLUSHES EASILY WITH NO RESISTANCE; CURRENTLY HAS CARDIZEM AT 10 MG/HR AND 1/2 NS AT 100 ML/HR. BED IN LOWEST POSITION, CALL LIGHT WITHIN REACH, SIDE RAILS UP X3. WILL CONTINUE TO MONITOR THROUGHOUT THE NIGHT.
[2022-04-26] MEDS: IV 1/2NS 1000 ML 1,000 ML IV PRN (02:06)
--- NOTE | 2022-04-26 03:46 | NUR ---
RT Received pt on ordered vent settings. Increased WOB, tachypneic (RR 45-50's), and has occasional tachycardia. HR drops to 90's when asleep. SPO2 100%. Pt suctioned with a moderate amount of secretions. Trach secured and patent. Emergency trach and Ambu-bag are at the bedside. Vent is plugged into a red outlet, and alarms are on and audible.
[2022-04-26] MEDS: LANTHANUM CARBONATE 500 MG TAB.CHEW GT SCH ×3 (05:00→21:00)
[2022-04-26] MEDS: DILTIAZEM HCL IV 125 MG in IV NS 0.9% 100 ML IV PRN (05:30)
[2022-04-26] MEDS: PANTOPRAZOLE 40 MG/PACK PACK NG SCH ×2 (06:00→16:56)
--- NOTE | 2022-04-26 06:03 | NUR ---
RN NOTE LANTHANUM CARBONATE SCHEDULED FOR 0500 AND PANTOPRAZOLE SCHEDULED FOR 0600 NON-ADMINISTERED D/T GT LEAKING AND PT'S NPO STATUS
[2022-04-26 06:04] LABS: BASOPHILS # (AUTO) 0.1 K/uL (0.0-0.2); BASOPHILS % (AUTO) 0.4 % (0.0-2.0); EOSINOPHILS % (AUTO) 2.7 % (0.0-6.0); HEMATOCRIT 21 % (39-51); LYMPHOCYTES # (AUTO) 1.5 K/uL (0.8-4.8); LYMPHOCYTES % (AUTO) 7.3 % (20.0-44.0); MEAN CORPUSCULAR HGB CONC 32 g/dl (31.0-36.0); MEAN CORPUSCULAR VOLUME 97 fL (80-96); MONOCYTES # (AUTO) 2.5 K/uL (0.1-1.30); NEUTROPHILS # (AUTO) 16.5 K/uL (1.8-8.9); NEUTROPHILS % (AUTO) 77.6 % (43.0-81.0); PLATELET COUNT (AUTO) 216 K/uL (150-450); RED BLOOD CELL COUNT(AUTO) 2.14 MIL/uL (4.5-6.0); WHITE BLOOD COUNT (AUTO) 21.2 K/uL (4.3-11.0)
[2022-04-26] MEDS: DEXTROSE 50%-WATER 50 ML DISP.SYRIN IV PRN ×2 (06:21→11:35)
--- NOTE | 2022-04-26 06:22 | NUR ---
RN NOTE PT NOTED TO HAVE BG OF 58 MG/DL. D50 ADMINISTERED. WILL MONITOR FOR EFFECTIVENESS.
[2022-04-26 06:33] LABS: CALCIUM, SERUM 8.3 mg/dL (8.5-10.1); CREATININE 2.4 mg/dL (0.6-1.3); POTASSIUM 4.1 mmol/L (3.5-5.1)
[2022-04-26 06:35] LABS: MAGNESIUM 2.2 mg/dL (1.8-2.4); PHOSPHORUS 4.9 mg/dL (2.5-4.9)
--- NOTE | 2022-04-26 06:56 | NUR ---
RN NOTE BG RECHECKED AND IS 155.
--- NOTE | 2022-04-26 07:05 | NUR ---
RN NOTES RECEIVED PT ON BED, OBTUNDED, NON-VERBAL.EYES OPEN AT TIMES, VENT/ TRACH DEPENDENT ,O2 SAT WNL, PT IS TACHYPNEIC RR IN 40'S , MD AWARE PER PERVIOUS SHIFT REPORT , FLEXISEAL INTACT AND PATENT, DRAINING STOOL THAT IS LOOSE AND BROWN IN COLOR. NEPHROSTOMY AND KNUTSON INTACT AND PATENT. LEFT WRIST RESTRAINT AND MITTEN REMAIN IN PLACE FOR PT SAFETY, NO SIGNS OF IMPAIRED SKIN OR CIRCULATION. GT REMAINS CLAMPED AND PT NPO D/T GT LEAKING. HILDA MIDLINE INTACT AND PATENT, 1/2 NS INFUSING AT 100 ML/HR AND CARDIZEM AT 10 MG/HR. BED IN LOWEST POSITION, CALL LIGHT WITHIN EASY REACH, SIDE RAILS UP X3. CONTINUE TO MONITOR .
--- NOTE | 2022-04-26 07:33 | NUR ---
DASHA RN CLOSING NOTE PT REMAINS IN BED, OBTUNDED, NON-VERBAL. REMAINS ON SAME VENT SETTINGS WITH O2SAT 98%-100%; NO S/S OF RESP DISTRESS BUT NOTED TO BE TACHYPNEIC WITH RR IN THE 40S-50S. ATTACHED TO EXTERNAL MONITOR, SR-ST WITH HR HIGH 111. FLEXISEAL INTACT AND PATENT, DRAINING STOOL THAT IS LOOSE AND BROWN IN COLOR. NEPHROSTOMY AND KNUTSON INTACT AND PATENT. LEFT WRIST RESTRAINT AND MITTEN REMAIN IN PLACE; NO SIGNS OF IMPAIRED SKIN OR CIRCULATION. GT REMAINS CLAMPED AND PT NPO D/T GT LEAKING. HILDA MIDLINE INTACT AND PATENT, 1/2 NS INFUSING AT 100 ML/HR AND CARDIZEM AT 10 MG/HR. BED IN LOWEST POSITION, CALL LIGHT WITHIN REACH, SIDE RAILS UP X3. WILL ENDORSE TO DAYSHIFT NURSE TO CONTINUE CARE.
[2022-04-26 07:48] LABS: HEMOGLOBIN 6.7 g/dL (13.5-17.5)
[2022-04-26] MEDS: METOPROLOL TARTRATE 25 MG TABLET GT SCH ×2 (08:58→21:00)
[2022-04-26] MEDS: MULTIVITAMINS,THERAGRAN 1 UDTAB TABLET GT SCH (08:59)
[2022-04-26] MEDS: DAKINS QUARTER STRENGTH (0.125%) 480 ML BOTTLE TOP SCH (08:59)
[2022-04-26] MEDS: BUMETANIDE (1 MG) 1 MG TABLET GT SCH (08:59)
[2022-04-26] MEDS: THERAHONEY GEL 1.5 OZ TUBE TP SCH (09:00)
--- NOTE | 2022-04-26 10:00 | NUR ---
RN NOTES PT IS TACHYPNEIC , HR IN 50'S, DR SHANNA SCHULTZFED, O2 SAT WNL, , NEW ORDER GIVEN ,
[2022-04-26 10:32] LABS: ABG OXYGEN SATURATION 97.1 % (92.0-98.5); ABG PCO2 26.5 mmHg (35.0-45.0); ABG PH 7.262 (7.350-7.450); ABG PO2 98.2 mmHg (75.0-100.0); AaDO2 156.5 mmHg; COHb 0.4 % (0.5-1.5); MetHb 0.4 % (0.0-1.5); O2Hb 96.3 % (94.0-97.0); PEEP,BG 5 cm H2O; SITE, ABG Left Radial; VT, ABG 400 mL
[2022-04-26] MEDS: LORAZEPAM INJ 2 MG/ML VIAL IV PRN ×2 (10:55→21:57)
[2022-04-26] MEDS: CEFTAZIDIME/AVIBACTAM 0.94 GM in IV NS 0.9% 100 ML IV SCH (10:55)
--- NOTE | 2022-04-26 11:00 | NUR ---
RN NOTES UNABLE TO GIVE MED FULLY, PEG TUBE BROKE ON ONE OF THE PORTS , DR OTERO AND SUSAN GARCIA NOTIFED .
[2022-04-26 11:52] LABS: BAND % (MANUAL) 8 % (0.0-5.0); EOSINOPHILS % (MANUAL) 2 % (0-4); LYMPHOCYTES % (MANUAL) 8 % (16-48); MONOCYTES % (MANUAL) 10 % (0-11.0); NEUTROPHILS % (MANUAL) 72 (42-76)
--- NOTE | 2022-04-26 12:08 | NUR ---
RN NOTES UNABLE TO GIVE GT MEDS , PEG TUBE IS BROKEN ON THE SIDE, ACOUSTIC SENSOR OPERATOR AWARE .
[2022-04-26] MEDS ORDERED: DIATR MEGLU/DIATRIZOATE SODIUM 30 ML BOTTLE (GASTROGRAPHIN) ONE (13:52)
--- NOTE | 2022-04-26 15:23 | NUR ---
RN NOTES PT IS NOT STABLE TO GO TO CT PER DR OTERO ORDER .
--- NOTE | 2022-04-26 15:58 | NUR ---
RN NOTES PT TRANSFERRED TO ICU ROOM [address] OTERO ORDER .
[2022-04-26] MEDS: Sodium Bicarbonate 100 MEQ in IV D5 / 0.2% NACL 1,000 ML IV SCH (16:13)
[2022-04-26] MEDS: ASCORBIC ACID 500 MG TABLET GT SCH (16:54)
--- NOTE | 2022-04-26 19:30 | NUR ---
RN OPENING NOTES RECEIVED CARE OF PATIENT FROM AM SHIFT NURSE, PATIENT IS OBTUNDED, OPENS EYES, DOES NOT FOLLOW COMMANDS. PATIENT WITH TRACH ON VENTILATOR WITH ORDERED SETTINGS, PATIENT NOTED TO BE TACHYPNEIC WITH RR BETWEEN 40-50, SHALLOW RESPIRATIONS NOTED. REPOSITIONED FOR COMFORT. SAFETY MEASURES KEPT IN PLACE PER HOSPITAL PROTOCOLS. WILL CARRY OUT PLAN OF CARE.
[2022-04-26] MEDS: MORPHINE SULFATE INJ 2 MG/ML DISP.SYRIN IV PRN (19:34)
[2022-04-26] MEDS ORDERED: ACETAMINOPHEN 650 MG/SUPP.RECT RC PRN (20:00)
--- NOTE | 2022-04-26 23:50 | NUR ---
RN NOTES 1 UNIT OF PRBC TRANSFUSION STARTED ORDERED WITHOUT COMPLICATIONS. NO ABNORMAL VITAL SIGNS OR FINDINGS PRIOR TO TRANSFUSION. HOSPITAL PROTOCOLS FOLLOWED.
[2022-04-27] VITALS (45 sets, daily range): BP systolic 97–148; BP diastolic 59–91
[2022-04-27] MEDS: BLOOD SUGAR DIAGNOSTIC 1 EACH STRIP IN SCH ×4 (00:13→17:33)
[2022-04-27] MEDS: INSULIN REGULAR, HUMAN 100 UNIT/ML 3 ML VIAL SQ PRN ×2 (00:14→06:26)
--- NOTE | 2022-04-27 02:44 | NUR ---
RN NOTES 1 UNIT PRBC TRANSFUSED WITHOUT COMPLICATIONS. NO ADVERSE REACTIONS NOTED THROUGHOUT TRANSFUSION, VITAL SIGNS REMAINED WNL, NO ACUTE CHANGES TO PATIENT'S CONDITION. HOSPITAL PROTOCOLS WERE FOLLOWED THROUGHOUT TRANSFUSION. VITAL SIGNS POST TRANSFUSION ARE WNL. WILL CONTINUE TO MONITOR PATIENT.
[2022-04-27 04:23] LABS: BASOPHILS % (AUTO) 0.2 % (0.0-2.0); EOSINOPHILS % (AUTO) 2.5 % (0.0-6.0); HEMATOCRIT 24 % (39-51); LYMPHOCYTES # (AUTO) 0.7 K/uL (0.8-4.8); LYMPHOCYTES % (AUTO) 4.8 % (20.0-44.0); MEAN CORPUSCULAR HGB CONC 33 g/dl (31.0-36.0); MEAN CORPUSCULAR VOLUME 92 fL (80-96); MONOCYTES # (AUTO) 1.4 K/uL (0.1-1.30); MONOCYTES % (AUTO) 8.9 % (2.0-12.0); NEUTROPHILS # (AUTO) 12.8 K/uL (1.8-8.9); NEUTROPHILS % (AUTO) 83.6 % (43.0-81.0); PLATELET COUNT (AUTO) 202 K/uL (150-450); RED BLOOD CELL COUNT(AUTO) 2.61 MIL/uL (4.5-6.0); WHITE BLOOD COUNT (AUTO) 15.3 K/uL (4.3-11.0)
[2022-04-27 04:48] LABS: CREATININE 2.8 mg/dL (0.6-1.3); MAGNESIUM 1.9 mg/dL (1.8-2.4); PHOSPHORUS 3.5 mg/dL (2.5-4.9); POTASSIUM 3.5 mmol/L (3.5-5.1)
[2022-04-27] MEDS: LANTHANUM CARBONATE 500 MG TAB.CHEW GT SCH ×3 (05:00→21:00)
[2022-04-27] MEDS: Sodium Bicarbonate 100 MEQ in IV D5 / 0.2% NACL 1,000 ML IV SCH ×2 (05:28→18:43)
[2022-04-27] MEDS: PANTOPRAZOLE 40 MG/PACK PACK NG SCH ×2 (05:43→18:00)
--- NOTE | 2022-04-27 07:24 | NUR ---
RN CLOSING NOTES ENDORSED CARE OF PATIENT TO AM SHIFT NURSE FOR CONTINUITY OF CARE. PATIENT REMAINS TACHYPNEIC, SHALLOW BREATHING, O2 SAT 98%. PATIENT IS TACHYCARDIC WITH HR CURRENTLY AT 131. SAFETY MEASURES KEPT IN PLACE PER HOSPITAL PROTOCOLS.
[2022-04-27 08:38] LABS: ABG PCO2 25.2 mmHg (35.0-45.0); ABG PH 7.407 (7.350-7.450); ABG PO2 95.4 mmHg (75.0-100.0); AaDO2 160.8 mmHg; COHb 0.3 % (0.5-1.5); MetHb 0.5 % (0.0-1.5); O2Hb 96.2 % (94.0-97.0); PEEP,BG 5 cm H2O; SITE, ABG Left Radial; VT, ABG 450 mL
[2022-04-27] MEDS: MULTIVITAMINS,THERAGRAN 1 UDTAB TABLET GT SCH (09:00)
[2022-04-27] MEDS: METOPROLOL TARTRATE 25 MG TABLET GT SCH ×2 (09:00→21:00)
[2022-04-27] MEDS: BUMETANIDE (1 MG) 1 MG TABLET GT SCH (09:00)
[2022-04-27] MEDS: DAKINS QUARTER STRENGTH (0.125%) 480 ML BOTTLE TOP SCH (09:04)
[2022-04-27] MEDS: THERAHONEY GEL 1.5 OZ TUBE TP SCH (09:08)
[2022-04-27] MEDS: IV NS 0.9% 1,000 ML IV PRN ×2 (10:52→20:16)
[2022-04-27] MEDS: IV NS 0.9% 250 ML IV PRN (11:07)
[2022-04-27] MEDS: CEFTAZIDIME/AVIBACTAM 0.94 GM in IV NS 0.9% 100 ML IV SCH (11:09)
--- NOTE | 2022-04-27 11:48 | NUR ---
ELIEL AT THE UNIT NOTIFIED OF THE HR RANGING 130s-147 FLUCTUATING; NO ORDER MADE.
--- NOTE | 2022-04-27 14:33 | NUR ---
FOLLOW-UP MADE TO THE LAB DEPT REGARDING AMIKACIN TROUGH AND SPOKE TO ELVIN-STAFF SHE STATES " RESULT STILL UNAVAILABLE," NOTIFIED PHARMACIST-TRISTON RELATED TO THE PENDING TROUGH LEVEL BECAUSE THERE IS DUE AMIKACIN IV @1300PM, AND SHE STATES " WE WILL JUST WAIT FOR THE LEVEL."
--- NOTE | 2022-04-27 16:37 | NUR ---
NOTIFIED PHARMACIST-TRISTON REGARDING AMIKACIN TROUGH LEVEL=6.0, RESULT JUST POSTED; PER INNIE DO NOT GIVE THE DOSE DUE TODAY.
[2022-04-27] MEDS ORDERED: IOHEXOL-300 100 ML VIAL IV ONE (17:48)
[2022-04-27] MEDS ORDERED: IV NS 0.9% 250 ML IV ONE (17:48)
--- NOTE | 2022-04-27 17:59 | NUR ---
ACCOMPANIED BY STAFF TO CT- SCAN DEPT. ;STABLE AT THIS TIME
[2022-04-27] MEDS: ASCORBIC ACID 500 MG TABLET GT SCH (18:00)
--- NOTE | 2022-04-27 18:20 | NUR ---
BACK FROM CT SCAN.CHARGE NURSE AWARE.
[2022-04-28] VITALS (28 sets, daily range): BP systolic 102–158; BP diastolic 52–121
[2022-04-28] MEDS: BLOOD SUGAR DIAGNOSTIC 1 EACH STRIP IN SCH ×5 (00:29→23:48)
[2022-04-28] MEDS: INSULIN REGULAR, HUMAN 100 UNIT/ML 3 ML VIAL SQ PRN ×2 (00:30→06:39)
[2022-04-28 04:22] LABS: BASOPHILS % (AUTO) 0.3 % (0.0-2.0); EOSINOPHILS % (AUTO) 5.6 % (0.0-6.0); HEMATOCRIT 23 % (39-51); HEMOGLOBIN 7.7 g/dL (13.5-17.5); LYMPHOCYTES # (AUTO) 0.6 K/uL (0.8-4.8); LYMPHOCYTES % (AUTO) 4.4 % (20.0-44.0); MEAN CORPUSCULAR HGB CONC 34 g/dl (31.0-36.0); MEAN CORPUSCULAR VOLUME 91 fL (80-96); MONOCYTES # (AUTO) 1.2 K/uL (0.1-1.30); MONOCYTES % (AUTO) 7.8 % (2.0-12.0); NEUTROPHILS # (AUTO) 12.1 K/uL (1.8-8.9); NEUTROPHILS % (AUTO) 81.9 % (43.0-81.0); PLATELET COUNT (AUTO) 196 K/uL (150-450); RED BLOOD CELL COUNT(AUTO) 2.51 MIL/uL (4.5-6.0); WHITE BLOOD COUNT (AUTO) 14.7 K/uL (4.3-11.0)
[2022-04-28] MEDS: LORAZEPAM INJ 2 MG/ML VIAL IV PRN (04:35)
[2022-04-28 04:50] LABS: CALCIUM, SERUM 7.2 mg/dL (8.5-10.1); CREATININE 2.9 mg/dL (0.6-1.3); MAGNESIUM 1.7 mg/dL (1.8-2.4); PHOSPHORUS 3.1 mg/dL (2.5-4.9)
[2022-04-28 04:58] LABS: POTASSIUM 2.7 mmol/L (3.5-5.1)
[2022-04-28] MEDS: LANTHANUM CARBONATE 500 MG TAB.CHEW GT SCH ×3 (05:00→21:00)
[2022-04-28] MEDS: PANTOPRAZOLE 40 MG/PACK PACK NG SCH ×2 (05:36→18:00)
[2022-04-28] MEDS: POTASSIUM CL. PREMIX PERIPHER. 50 ML IV SCH ×8 (06:45→22:16)
--- NOTE | 2022-04-28 07:46 | NUR ---
RN NOTE PT RECEIVED IN BED, TRACH IN PLACE WITH VENT SETTINGS TOLERATED WELL. PT NOTED TACHYPNIC WITH O2 SAT OF 99. PT STILL NOTED WITH ST 130. HILDA MIDLINE IN PLACE WITH IVF NaBicarb at 75cc/hr. KNUTSON CATH IN PLACE DRAINING WELL. PT REMAINS NPO STATUS. CONTACT PREC FOLLOWED. WILL CONT TO MONITOR.
[2022-04-28] MEDS: METRONIDAZOLE 500MG/ NS 100ML 500 MG in PREMIX 1 EA IV SCH ×3 (08:30→22:16)
[2022-04-28 08:36] LABS: ABG BASE EXCESS -4.2 mmol/L; ABG OXYGEN SATURATION 97.5 % (92.0-98.5); ABG PCO2 28.4 mmHg (35.0-45.0); ABG PH 7.446 (7.350-7.450); ABG PO2 105.9 mmHg (75.0-100.0); AaDO2 146.6 mmHg; COHb 0.3 % (0.5-1.5); MetHb 0.4 % (0.0-1.5); O2Hb 96.8 % (94.0-97.0); PEEP,BG 5 cm H2O; SITE, ABG Left Brachial; VENT MODE, BG AC 40%; VT, ABG 450 mL
[2022-04-28] MEDS: Sodium Bicarbonate 100 MEQ in IV D5 / 0.2% NACL 1,000 ML IV SCH (08:55)
[2022-04-28] MEDS: BUMETANIDE (1 MG) 1 MG TABLET GT SCH (09:00)
[2022-04-28] MEDS: MULTIVITAMINS,THERAGRAN 1 UDTAB TABLET GT SCH (09:00)
[2022-04-28] MEDS: METOPROLOL TARTRATE 25 MG TABLET GT SCH ×2 (09:00→21:00)
[2022-04-28] MEDS: DAKINS QUARTER STRENGTH (0.125%) 480 ML BOTTLE TOP SCH (10:24)
[2022-04-28] MEDS: THERAHONEY GEL 1.5 OZ TUBE TP SCH (10:24)
[2022-04-28] MEDS: CEFTAZIDIME/AVIBACTAM 0.94 GM in IV NS 0.9% 100 ML IV SCH (11:39)
[2022-04-28] MEDS ORDERED: ANESTHESIA TRAY IN PYXIS 1 EA TRAY MC ONE (12:11)
[2022-04-28] MEDS ORDERED: FENTANYL PF 100MCG/2ML AMPUL ONE (12:41)
[2022-04-28] MEDS ORDERED: MIDAZOLAM HCL 2 MG/2ML VIAL ONE (12:42)
[2022-04-28] MEDS ORDERED: ROCURONIUM BROMIDE 50 MG/5 ML ONE (12:56)
[2022-04-28] MEDS ORDERED: AMIKACIN 250 MG in IV D5W 100 ML IV SCH (13:00)
[2022-04-28] MEDS ORDERED: POTASSIUM CL. PREMIX PERIPHER. 50 ML IV SCH (14:00)
[2022-04-28] MEDS ORDERED: Magnesium 1GM/D5W 100ML PREMIX 100 ML IV SCH ×2 (14:00→19:00)
[2022-04-28] MEDS ORDERED: EPOETIN ALFA (10,000 UNIT) 10,000 UNIT/ML VIAL SQ SCH (14:00)
[2022-04-28] MEDS ORDERED: POTASSIUM CL. PREMIX PERIPHER. 50 ML IV ONE (17:00)
[2022-04-28] MEDS: DEXTROSE 50%-WATER 50 ML DISP.SYRIN IV PRN ×3 (17:24→23:57)
[2022-04-28] MEDS: ASCORBIC ACID 500 MG TABLET GT SCH (18:00)
[2022-04-28] MEDS: EPOETIN ALFA-EPBX 10,000 UNIT/ML VIAL IV SCH (18:36)
--- NOTE | 2022-04-28 19:47 | NUR ---
RN NOTE PT RESTING IN BED, TRACH IN PLACE WITH VENT SETTINGS TOLERATED WELL. PT NOTED TACHYPNIC WITH O2 SAT OF 99. PT STILL NOTED WITH ST 130. HILDA PICC LINE IN PLACE. NO IVF RUNNING. KNUTSON CATH IN PLACE DRAINING WELL. PT REMAINS NPO STATUS. CONTACT PREC FOLLOWED FOR ESBL IN URINE. WILL CONT TO MONITOR. DUE MEDICATIONS GIVEN. AM/PM CARE DONE.
--- NOTE | 2022-04-28 20:50 | NUR ---
ICU/RESTROOMS OR LOUNGES MAID BLOOD SUGAR RECHECK WAS 83. WILL MONITOR THIS PT'S SUGAR ORDERED.
--- NOTE | 2022-04-28 21:40 | NUR ---
ICU/AIRCONDITIONING PLANT OPERATOR 2100 MEDICATION OF FORRENOL AND LOPRESSOR NOT GIVEN DUE TO PT IS NPO FOR A MALFUNCTION G/TUBE. PT IS SUPPOSED TO GO TO PROCEDURE TO FIX THIS.
--- NOTE | 2022-04-28 23:30 | NUR ---
ICU/DOGMAN/WOMAN MORPHINE IVP WAS GIVEN FOR FLACC SCALE 10/10. INCREASED HEART RATE 120'S TO 130'S. WILL MONITOR THIS PT AND HIS PAIN
[2022-04-28] MEDS: MORPHINE SULFATE INJ 2 MG/ML DISP.SYRIN IV PRN (23:39)
[2022-04-29] VITALS (46 sets, daily range): BP systolic 84–176; BP diastolic 29–105
--- NOTE | 2022-04-29 00:12 | NUR ---
ICU/SUPERVISOR POST WAVE BLOOD SUGAR IS 63, WEALTH MANAGEMENT CONSULTANT WAS NOTIFED ABOUT THIS SAID TO COVER WITH D50, AND NO IVF DUE TO HD HASN'T BEEN GIVEN. WILL CHECK IT ORDERED
--- NOTE | 2022-04-29 02:00 | NUR ---
ICU/LAWN TECHNICIAN WOUND DOCUMENTATION WAS DONE ON THE PT.PT TOLERATED THIS WELL. PT TURNED AND REPOSITIONED FOR COMFORT AND CARE
[2022-04-29 04:16] LABS: BASOPHILS # (AUTO) 0.1 K/uL (0.0-0.2); BASOPHILS % (AUTO) 0.3 % (0.0-2.0); HEMATOCRIT 24 % (39-51); HEMOGLOBIN 7.8 g/dL (13.5-17.5); LYMPHOCYTES # (AUTO) 0.4 K/uL (0.8-4.8); LYMPHOCYTES % (AUTO) 2.6 % (20.0-44.0); MEAN CORPUSCULAR HGB CONC 33 g/dl (31.0-36.0); MEAN CORPUSCULAR VOLUME 92 fL (80-96); MONOCYTES # (AUTO) 0.8 K/uL (0.1-1.30); NEUTROPHILS # (AUTO) 14.3 K/uL (1.8-8.9); NEUTROPHILS % (AUTO) 87.1 % (43.0-81.0); PLATELET COUNT (AUTO) 178 K/uL (150-450); RED BLOOD CELL COUNT(AUTO) 2.55 MIL/uL (4.5-6.0); WHITE BLOOD COUNT (AUTO) 16.4 K/uL (4.3-11.0)
[2022-04-29 04:58] LABS: CALCIUM, SERUM 7.6 mg/dL (8.5-10.1); CREATININE 3.3 mg/dL (0.6-1.3); MAGNESIUM 2.1 mg/dL (1.8-2.4); PHOSPHORUS 3.8 mg/dL (2.5-4.9); POTASSIUM 4.3 mmol/L (3.5-5.1)
[2022-04-29] MEDS: LANTHANUM CARBONATE 500 MG TAB.CHEW GT SCH ×3 (05:00→20:44)
[2022-04-29] MEDS: METRONIDAZOLE 500MG/ NS 100ML 500 MG in PREMIX 1 EA IV SCH ×3 (05:24→21:01)
[2022-04-29] MEDS: PANTOPRAZOLE 40 MG/PACK PACK NG SCH ×2 (06:00→17:02)
[2022-04-29] MEDS: BLOOD SUGAR DIAGNOSTIC 1 EACH STRIP IN SCH ×4 (06:20→17:19)
--- NOTE | 2022-04-29 06:21 | NUR ---
ICU/CARBURETOR MECHANIC MEDICATION @0500 & 0600 WAS NOT GIVEN DUE TO PT IS NPO DUE TO MALFUNCTION OF G/TUBE
[2022-04-29 07:43] LABS: ABG BASE EXCESS -9.4 mmol/L; ABG OXYGEN SATURATION 98.1 % (92.0-98.5); ABG PCO2 32.6 mmHg (35.0-45.0); ABG PH 7.307 (7.350-7.450); ABG PO2 134.3 mmHg (75.0-100.0); AaDO2 113.4 mmHg; COHb 0.1 % (0.5-1.5); MetHb 0.3 % (0.0-1.5); O2Hb 97.7 % (94.0-97.0); PEEP,BG 5 cm H2O; SITE, ABG Left Radial; VT, ABG 450 mL
--- NOTE | 2022-04-29 08:00 | NUR ---
RN NOTES RECEIVED PATIENT TRACHEA/VENT DEPENDENT. PATIENT HADS NO ACUTE RESPIRATORY DISTRESS. PATIENT CONTRACTED, HAD MALFUNCTION OF GT, AND LIVER. PATIENT SCHEDULED LEFT PSOAS ABSCESS @1130. PATIENT NPO HELD SCHEDULED MEDICATION BECAUSE OF GT LEAKING. KNUTSON DRAINING VIA GRAVITY. RECTAL TUBRE INTACT. DRESSING CHANGED. ASSIST TURN AND REPOSTION Q 2 HR.
--- NOTE | 2022-04-29 08:50 | NUR ---
RT abg given to dr franz
[2022-04-29] MEDS: MULTIVITAMINS,THERAGRAN 1 UDTAB TABLET GT SCH (09:00)
[2022-04-29] MEDS: METOPROLOL TARTRATE 25 MG TABLET GT SCH ×2 (09:00→20:44)
[2022-04-29] MEDS: BUMETANIDE (1 MG) 1 MG TABLET GT SCH (09:00)
[2022-04-29] MEDS: DAKINS QUARTER STRENGTH (0.125%) 480 ML BOTTLE TOP SCH (10:21)
[2022-04-29] MEDS: THERAHONEY GEL 1.5 OZ TUBE TP SCH (10:21)
[2022-04-29] MEDS: CEFTAZIDIME/AVIBACTAM 0.94 GM in IV NS 0.9% 100 ML IV SCH (10:41)
--- NOTE | 2022-04-29 11:30 | NUR ---
RN NOTES PATIENT BLANK DRILLER FOR PROCEDURE AT THIS TIME.
--- NOTE | 2022-04-29 13:00 | NUR ---
RN NOTES PATIENT BACK FROM PROCEDURE AT THIS TIME WITH LEFT SIDE PSOAS ABSCESS DRAINAGE , SAND SPECIMEN TO THE LAB PATHOLOGY.
[2022-04-29] MEDS: DEXTROSE 50%-WATER 50 ML DISP.SYRIN IV PRN ×2 (13:16→17:11)
--- NOTE | 2022-04-29 13:16 | NUR ---
rn notes bs-38mg/dl administered dextrose 50% syringe via ismael picc line.
--- NOTE | 2022-04-29 13:17 | NUR ---
rn notes get new order via Dr Fitzpatrick start D5 1/2 ns @75 ml /hr order taken and carried out.
[2022-04-29] MEDS ORDERED: IV D5/0.45 NACL 1,000 ML IV ONE (13:30)
[2022-04-29] MEDS: ASCORBIC ACID 500 MG TABLET GT SCH (17:02)
--- NOTE | 2022-04-29 18:30 | NUR ---
RN NOTES PM CARE DONE, SUCTION, BS-66 MG/DL, HELD PO MEDICATION BECAUSE OF GT LEAKAGE. ASSIST TURN AND REPOSTION Q 2 HR. BEDSIDE MONITOR SHOWS HR 122. KEEP HOB ELEVATED, URINE OUTPUT WAS 300ML. ENDORSED ONCOMING NURSE FOLLOW HAMILTON..
--- NOTE | 2022-04-29 20:44 | NUR ---
ICU/BURLAP BAG SEWER 2100 MEDICATION WAS HELD DUE TO PT IS NPO, MALFUNCTION OF G/TUBE ABSCESS.
[2022-04-29] MEDS: MORPHINE SULFATE INJ 2 MG/ML DISP.SYRIN IV PRN (21:01)
--- NOTE | 2022-04-29 21:30 | NUR ---
ICU/CATH LAB RADIOLOGICAL TECHNOLOGIST PT WAS GIVEN MORPHINE FOR FLACC SCALE OF 10/10. INCREASED HEART RATE 120'S TO 130'S. ALSO INCREASED RR 30'S-40'S.WILL MONITOR THIS PT AND HIS PAIN.
[2022-04-30] VITALS (47 sets, daily range): BP systolic 101–168; BP diastolic 28–94
[2022-04-30] MEDS: BLOOD SUGAR DIAGNOSTIC 1 EACH STRIP IN SCH ×4 (00:34→17:28)
[2022-04-30] MEDS: LANTHANUM CARBONATE 500 MG TAB.CHEW GT SCH ×3 (05:00→21:00)
[2022-04-30] MEDS: METRONIDAZOLE 500MG/ NS 100ML 500 MG in PREMIX 1 EA IV SCH ×3 (05:14→21:26)
[2022-04-30] MEDS: MORPHINE SULFATE INJ 2 MG/ML DISP.SYRIN IV PRN ×2 (05:15→21:28)
[2022-04-30 05:27] LABS: BASOPHILS % (AUTO) 0.3 % (0.0-2.0); EOSINOPHILS % (AUTO) 10.2 % (0.0-6.0); HEMATOCRIT 23 % (39-51); HEMOGLOBIN 7.7 g/dL (13.5-17.5); LYMPHOCYTES # (AUTO) 0.7 K/uL (0.8-4.8); LYMPHOCYTES % (AUTO) 5.5 % (20.0-44.0); MEAN CORPUSCULAR HGB CONC 33 g/dl (31.0-36.0); MEAN CORPUSCULAR VOLUME 93 fL (80-96); MONOCYTES # (AUTO) 1.1 K/uL (0.1-1.30); MONOCYTES % (AUTO) 8.8 % (2.0-12.0); NEUTROPHILS # (AUTO) 9.1 K/uL (1.8-8.9); NEUTROPHILS % (AUTO) 75.2 % (43.0-81.0); PLATELET COUNT (AUTO) 160 K/uL (150-450); RED BLOOD CELL COUNT(AUTO) 2.51 MIL/uL (4.5-6.0)
[2022-04-30] MEDS: PANTOPRAZOLE 40 MG/PACK PACK NG SCH ×2 (05:41→17:19)
--- NOTE | 2022-04-30 05:42 | NUR ---
ICU/Rivet Hammer Machine Operator @0500 & 0600 MEDICATION WAS HELD DUE TO PT IS NPO, MALFUNCTION OF G/TUBE ABSCESS.
--- NOTE | 2022-04-30 05:43 | NUR ---
ICU/CUSTOMER RETENTION SPECIALIST PT WAS GIVEN MORPHINE FOR FLACC SCALE OF 10/10. INCREASED HEART RATE 120'S TO 130'S. ALSO INCREASED RR 30'S-40'S.WILL MONITOR THIS PT AND HIS PAIN.
[2022-04-30 05:54] LABS: CALCIUM, SERUM 7.9 mg/dL (8.5-10.1); CREATININE 3.2 mg/dL (0.6-1.3); PHOSPHORUS 4.2 mg/dL (2.5-4.9); POTASSIUM 3.8 mmol/L (3.5-5.1)
--- NOTE | 2022-04-30 07:55 | NUR ---
ICU/RN PT RECEIVED IN BED, OBTUNDED. PT ON MECHANICAL VENTILATOR WITH TRACH TUBE IN PLACE, FIO2 40% PEEP OF 5, SAT 100% ON BEDSIDE MONITOR. PT SINUS TACH AT 133 ON BEDSIDE MONITOR, METOPROLOL SCHEDULED FOR 0900. GTUBE IN PLACE, NO FEEDING RUNNING, DRAIN IN PLACE DRAINING PURULENT CLOUD WHITE DRAINING. KNUTSON CATH IN PLACE, PATENT AND DRAINING CLEAR URINE. PSOAS ABSCESS DRAIN ON THE LEFT SIDE PATENT AND DRAINING. FLEXISEAL IN PLACE. CHOLECYSTECTOMY ON THE RIGHT CHEST IN PLACE, PATENT. BED LOCKED AND IN LOWEST POSITION, CALL LIGHT WITHIN REACH, 3 SIDE RAILS UP.
[2022-04-30] MEDS: DAKINS QUARTER STRENGTH (0.125%) 480 ML BOTTLE TOP SCH (08:08)
[2022-04-30] MEDS: METOPROLOL TARTRATE 25 MG TABLET GT SCH ×2 (08:09→21:00)
[2022-04-30] MEDS: BUMETANIDE (1 MG) 1 MG TABLET GT SCH (08:09)
[2022-04-30] MEDS: MULTIVITAMINS,THERAGRAN 1 UDTAB TABLET GT SCH (08:09)
[2022-04-30] MEDS: THERAHONEY GEL 1.5 OZ TUBE TP SCH (08:11)
[2022-04-30] MEDS: CEFTAZIDIME/AVIBACTAM 0.94 GM in IV NS 0.9% 100 ML IV SCH (10:47)
[2022-04-30] MEDS: DEXTROSE 50%-WATER 50 ML DISP.SYRIN IV PRN ×2 (11:20→17:43)
[2022-04-30] MEDS ORDERED: NEPRO 1,000 ML BOTTLE GT PRN (13:00)
--- NOTE | 2022-04-30 15:55 | NUR ---
ICU/RN PT'S GTUBE CONTINUES TO HAVE WHITE CLOUDY DRAINAGE. DISTRICT SUPERVISOR ABIMAEL NOTIFIED. ORDERED TO CONTINUE TO HOLD FEEDING FROM NOW AND INITIATE TAMELA 10MG TID.
[2022-04-30] MEDS ORDERED: METOCLOPRAMIDE HCL 10 MG TABLET PO SCH (17:00)
[2022-04-30] MEDS: ASCORBIC ACID 500 MG TABLET GT SCH (17:19)
[2022-04-30] MEDS: METOCLOPRAMIDE HCL 10 MG/2 ML VIAL IV SCH (17:28)
--- NOTE | 2022-04-30 18:57 | NUR ---
ICU/RN PT REMAINS IN BED, OBTUNDED. PT ON MECHANICAL VENTILATOR WITH TRACH TUBE IN PLACE, FIO2 40% PEEP OF 5, SAT 100% ON BEDSIDE MONITOR. PT SINUS TACH AT 123 ON BEDSIDE MONITOR. GTUBE IN PLACE, NO FEEDING RUNNING, DRAIN IN PLACE DRAINING PURULENT CLOUD WHITE DRAINING. KNUTSON CATH IN PLACE, PATENT AND DRAINING CLOUDY URINE. PSOAS ABSCESS DRAIN ON THE LEFT SIDE PATENT AND DRAINING, 100ML DRAINED DURING SHIFT. FLEXISEAL IN PLACE. CHOLECYSTECTOMY ON THE RIGHT CHEST IN PLACE, PATENT. BED LOCKED AND IN LOWEST POSITION, CALL LIGHT WITHIN REACH, 3 SIDE RAILS UP.
--- NOTE | 2022-04-30 21:30 | NUR ---
ICU/FITNESS PLAN COORDINATOR PT WAS GIVEN PRN MORPHINE IVP BY TRADING MANAGER NURSE FOR FLACC SCALE OF 10/10. PT HAS INCREASED HEART RATE 140'S-130'S ALONG WITH INCREASED RR 40'S-30'S. WILL CONTINUE TO MONITOR THIS PT AND HIS PAIN.
--- NOTE | 2022-04-30 22:07 | NUR ---
ICU/FILM MAKER 2100 MEDICATION WAS HELD DUE TO G/TUBE MALFUNCTION AND ABSCESS.
[2022-05-01] VITALS (42 sets, daily range): BP systolic 108–162; BP diastolic 68–92
[2022-05-01] MEDS: BLOOD SUGAR DIAGNOSTIC 1 EACH STRIP IN SCH ×4 (00:12→17:13)
[2022-05-01 04:55] LABS: BASOPHILS # (AUTO) 0.1 K/uL (0.0-0.2); BASOPHILS % (AUTO) 0.5 % (0.0-2.0); EOSINOPHILS % (AUTO) 8.4 % (0.0-6.0); HEMATOCRIT 25 % (39-51); HEMOGLOBIN 8.1 g/dL (13.5-17.5); LYMPHOCYTES # (AUTO) 0.9 K/uL (0.8-4.8); LYMPHOCYTES % (AUTO) 6.3 % (20.0-44.0); MEAN CORPUSCULAR HGB CONC 33 g/dl (31.0-36.0); MEAN CORPUSCULAR VOLUME 93 fL (80-96); MONOCYTES # (AUTO) 1.3 K/uL (0.1-1.30); MONOCYTES % (AUTO) 9.1 % (2.0-12.0); NEUTROPHILS # (AUTO) 10.6 K/uL (1.8-8.9); NEUTROPHILS % (AUTO) 75.7 % (43.0-81.0); PLATELET COUNT (AUTO) 162 K/uL (150-450); RED BLOOD CELL COUNT(AUTO) 2.64 MIL/uL (4.5-6.0)
[2022-05-01] MEDS: LANTHANUM CARBONATE 500 MG TAB.CHEW GT SCH ×3 (05:00→21:00)
[2022-05-01 05:02] LABS: CALCIUM, SERUM 8.4 mg/dL (8.5-10.1); CREATININE 3.4 mg/dL (0.6-1.3); MAGNESIUM 2.1 mg/dL (1.8-2.4); PHOSPHORUS 4.9 mg/dL (2.5-4.9); POTASSIUM 3.7 mmol/L (3.5-5.1)
[2022-05-01] MEDS: DEXTROSE 50%-WATER 50 ML DISP.SYRIN IV PRN ×4 (05:12→23:42)
[2022-05-01] MEDS: METRONIDAZOLE 500MG/ NS 100ML 500 MG in PREMIX 1 EA IV SCH ×3 (05:19→21:32)
[2022-05-01] MEDS: PANTOPRAZOLE 40 MG/PACK PACK NG SCH ×2 (05:55→17:13)
--- NOTE | 2022-05-01 05:56 | NUR ---
ICU/CONCRETE BLOCK MASON\ 0500 & 0600 MEDICATION WAS HELD DUE TO G/TUBE MALFUNCTION AND ABSCESS.
[2022-05-01] MEDS: BUMETANIDE (1 MG) 1 MG TABLET GT SCH (08:18)
[2022-05-01] MEDS: METOPROLOL TARTRATE 25 MG TABLET GT SCH ×2 (08:18→21:00)
[2022-05-01] MEDS: METOCLOPRAMIDE HCL 10 MG/2 ML VIAL IV SCH ×3 (08:18→16:30)
[2022-05-01] MEDS: MORPHINE SULFATE INJ 2 MG/ML DISP.SYRIN IV PRN (08:18)
[2022-05-01] MEDS: MULTIVITAMINS,THERAGRAN 1 UDTAB TABLET GT SCH (08:19)
[2022-05-01] MEDS: THERAHONEY GEL 1.5 OZ TUBE TP SCH (08:19)
[2022-05-01] MEDS: DAKINS QUARTER STRENGTH (0.125%) 480 ML BOTTLE TOP SCH (08:19)
[2022-05-01] MEDS: CEFTAZIDIME/AVIBACTAM 0.94 GM in IV NS 0.9% 100 ML IV SCH (10:31)
--- NOTE | 2022-05-01 11:00 | NUR ---
ICU/RN PSOAS ABSCESS DRAIN BAG CHANGED PER SECURITY FLEX OFFICER WILSTEIN REQUEST.
[2022-05-01] MEDS ORDERED: AMIKACIN 250 MG in IV D5W 100 ML IV SCH (13:00)
[2022-05-01] MEDS: ASCORBIC ACID 500 MG TABLET GT SCH (17:13)
--- NOTE | 2022-05-01 21:33 | NUR ---
ICU/RETAIL WAREHOUSE ASSOCIATE 2100 MEDICATION WAS HELD DUE TO G/TUBE MALFUNCTION AND ABSCESS.
[2022-05-02] VITALS (24 sets, daily range): BP systolic 81–142; BP diastolic 55–98
[2022-05-02] MEDS: BLOOD SUGAR DIAGNOSTIC 1 EACH STRIP IN SCH ×4 (00:02→17:02)
[2022-05-02] MEDS: METRONIDAZOLE 500MG/ NS 100ML 500 MG in PREMIX 1 EA IV SCH ×3 (04:29→21:09)
[2022-05-02] MEDS: LANTHANUM CARBONATE 500 MG TAB.CHEW GT SCH ×3 (04:53→21:00)
[2022-05-02] MEDS: DEXTROSE 50%-WATER 50 ML DISP.SYRIN IV PRN ×4 (04:55→23:43)
[2022-05-02 05:04] LABS: BASOPHILS # (AUTO) 0.1 K/uL (0.0-0.2); BASOPHILS % (AUTO) 0.8 % (0.0-2.0); EOSINOPHILS % (AUTO) 10.1 % (0.0-6.0); HEMATOCRIT 26 % (39-51); HEMOGLOBIN 8.6 g/dL (13.5-17.5); LYMPHOCYTES # (AUTO) 1.2 K/uL (0.8-4.8); LYMPHOCYTES % (AUTO) 10.8 % (20.0-44.0); MEAN CORPUSCULAR HGB CONC 34 g/dl (31.0-36.0); MEAN CORPUSCULAR VOLUME 93 fL (80-96); MONOCYTES # (AUTO) 1.3 K/uL (0.1-1.30); MONOCYTES % (AUTO) 11.7 % (2.0-12.0); NEUTROPHILS # (AUTO) 7.6 K/uL (1.8-8.9); NEUTROPHILS % (AUTO) 66.6 % (43.0-81.0); PLATELET COUNT (AUTO) 162 K/uL (150-450); RED BLOOD CELL COUNT(AUTO) 2.76 MIL/uL (4.5-6.0); WHITE BLOOD COUNT (AUTO) 11.3 K/uL (4.3-11.0)
[2022-05-02 05:31] LABS: CALCIUM, SERUM 8.6 mg/dL (8.5-10.1); CREATININE 3.7 mg/dL (0.6-1.3); MAGNESIUM 1.9 mg/dL (1.8-2.4); PHOSPHORUS 4.9 mg/dL (2.5-4.9); POTASSIUM 3.4 mmol/L (3.5-5.1)
[2022-05-02] MEDS: PANTOPRAZOLE 40 MG/PACK PACK NG SCH ×2 (06:00→17:02)
--- NOTE | 2022-05-02 06:18 | NUR ---
ICU/CEMETERY WORKER 0600 MEDICATION WAS HELD DUE TO G/TUBE MALFUNCTION AND ABSCESS.
--- NOTE | 2022-05-02 07:24 | NUR ---
RN OPENING NOTE RECEIVED REPORT FROM NIGHTSHIFT RN. ON MECHANICAL VENT TOLERATING SETTINGS WELL. PATIENT RESTING IN BED, VITAL SIGNS STABLE. RESTRAINTS NOTED, CIRCULATION WITHIN NORMAL LIMITS. SAFETY MEASURES IMPLEMENTED. WILL CONTINUE PLAN OF CARE AND ANTICIPATE NEEDS.
[2022-05-02] MEDS: MULTIVITAMINS,THERAGRAN 1 UDTAB TABLET GT SCH (08:01)
[2022-05-02] MEDS: THERAHONEY GEL 1.5 OZ TUBE TP SCH (08:01)
[2022-05-02] MEDS: DAKINS QUARTER STRENGTH (0.125%) 480 ML BOTTLE TOP SCH (08:01)
[2022-05-02] MEDS: BUMETANIDE (1 MG) 1 MG TABLET GT SCH (08:01)
[2022-05-02] MEDS: METOPROLOL TARTRATE 25 MG TABLET GT SCH ×2 (08:01→21:00)
[2022-05-02] MEDS: METOCLOPRAMIDE HCL 10 MG/2 ML VIAL IV SCH ×3 (08:04→16:29)
[2022-05-02] MEDS: POTASSIUM CL. PREMIX PERIPHER. 50 ML IV SCH ×4 (08:32→11:42)
--- NOTE | 2022-05-02 09:00 | NUR ---
0900 MEDICATIONS HELD DUE TO G/TUBE MALFUNCTION AND ABSCESS.
[2022-05-02] MEDS: CEFTAZIDIME/AVIBACTAM 0.94 GM in IV NS 0.9% 100 ML IV SCH (12:30)
--- NOTE | 2022-05-02 12:56 | NUR ---
1300 MEDICATION HELD DUE TO G/TUBE MALFUNCTION AND ABSCESS.
[2022-05-02] MEDS: ASCORBIC ACID 500 MG TABLET GT SCH (17:02)
--- NOTE | 2022-05-02 18:47 | NUR ---
PATIENT IN STABLE CONDITION. SAFETY MEASURES IMPLEMENTED. WILL ENDORSE TO NIGHTSHIFT RN FOR CONTINUATION OF CARE
--- NOTE | 2022-05-02 19:40 | NUR ---
SPECIAL EFFECTS TECHNICIAN OPENING NOTES: RECEIVED PATIENT IN BED. OBTUNDED, OPEN BOTH EYES. ON TRACH TO MECHANICAL VENT SETTINGS AND PT TOLERATED WELL. IV ACCESS ON HILDA PICC INTACT AND PATENT. NO S/S OF INFILTRATIONS. NO FACIAL GRIMACING NOTED NO ACUTE DISTRESS. RESTRAINTS ON, KNUTSON CATHETER, FLEXI-SEAL AND ALL OTHER DRAINAGE BAG IN PLACE. DRAINING WELL. ALL SAFETY MEASURES IN PLACE. SIDE RAILS UP X3, BED IN LOWEST POSITION AND LOCKED. PLACE CALL LIGHT WITH IN REACH. WILL CONTINUE TO MONITOR.
--- NOTE | 2022-05-02 21:04 | NUR ---
RN NOTES: 2100 MEDICATIONS, FOSRENOL AND LOPRESSOR ON HOLD DUE TO GTUBE MALFUNCTION AND ABCESS.
[2022-05-02] MEDS ORDERED: LIDOCAINE 1%-EPI 1:100,000 20 ML VIAL TP ONE (21:30)
[2022-05-02] MEDS ORDERED: SILVER NITRATE APPLICATOR 1 EA BOX TP SCH (21:30)
[2022-05-02] MEDS: MORPHINE SULFATE INJ 2 MG/ML DISP.SYRIN IV PRN (22:04)
--- NOTE | 2022-05-02 22:13 | NUR ---
RN NOTES: NOTED PT FACIAL GRIMACING, IRRITABILITY, MOANING, RESTLESSNESS, V/S CHANGES. MORPHINE SULFATE GIVEN AND PT TOLERATED WELL. WILL CONTINUE TO MONITOR
[2022-05-03] VITALS (33 sets, daily range): BP systolic 90–141; BP diastolic 54–90
[2022-05-03] MEDS: BLOOD SUGAR DIAGNOSTIC 1 EACH STRIP IN SCH ×5 (00:01→23:42)
[2022-05-03] MEDS: INSULIN REGULAR, HUMAN 100 UNIT/ML 3 ML VIAL SQ PRN ×3 (00:02→23:44)
--- NOTE | 2022-05-03 00:03 | NUR ---
RN NOTES: PT'S BLOOD SUGAR 54. DEXTROSE GIVEN. NO S/S OF HYPER/HYPOGLYCEMIA. WILL CONTINUE TO MONITOR
--- NOTE | 2022-05-03 00:25 | NUR ---
RN NOTES: BLOOD SUGAR AT THIS MOMENT 164. NO S/S OF HYPER/HYPOGLYCEMIA. WILL CONTINUE TO MONITOR
[2022-05-03] MEDS: LORAZEPAM INJ 2 MG/ML VIAL IV PRN (02:06)
--- NOTE | 2022-05-03 02:13 | NUR ---
RN NOTES: PT NOTED WITH RESTLESSNESS, TACHYPNEA, AGITATION. ATIVAN 0.25 ML GIVEN PER PRN ORDER. WILL CONTINUE TO MONITOR
[2022-05-03 03:44] LABS: BASOPHILS # (AUTO) 0.1 K/uL (0.0-0.2); BASOPHILS % (AUTO) 0.6 % (0.0-2.0); EOSINOPHILS % (AUTO) 6.2 % (0.0-6.0); HEMATOCRIT 24 % (39-51); HEMOGLOBIN 7.8 g/dL (13.5-17.5); LYMPHOCYTES # (AUTO) 0.9 K/uL (0.8-4.8); LYMPHOCYTES % (AUTO) 8.6 % (20.0-44.0); MEAN CORPUSCULAR HGB CONC 33 g/dl (31.0-36.0); MEAN CORPUSCULAR VOLUME 92 fL (80-96); MONOCYTES # (AUTO) 1.5 K/uL (0.1-1.30); MONOCYTES % (AUTO) 14.6 % (2.0-12.0); NEUTROPHILS # (AUTO) 7.1 K/uL (1.8-8.9); PLATELET COUNT (AUTO) 155 K/uL (150-450); RED BLOOD CELL COUNT(AUTO) 2.59 MIL/uL (4.5-6.0); WHITE BLOOD COUNT (AUTO) 10.2 K/uL (4.3-11.0)
[2022-05-03 03:53] LABS: CALCIUM, SERUM 8.5 mg/dL (8.5-10.1); CREATININE 3.9 mg/dL (0.6-1.3); POTASSIUM 3.5 mmol/L (3.5-5.1)
[2022-05-03] MEDS: LANTHANUM CARBONATE 500 MG TAB.CHEW GT SCH ×3 (05:00→21:00)
[2022-05-03] MEDS: PANTOPRAZOLE 40 MG/PACK PACK NG SCH ×2 (05:39→18:00)
[2022-05-03] MEDS: METRONIDAZOLE 500MG/ NS 100ML 500 MG in PREMIX 1 EA IV SCH ×3 (05:41→21:38)
--- NOTE | 2022-05-03 05:48 | NUR ---
RN NOTES: PROTONIX AND FOSRENOL ON HOLD DUE TO GTUBE MALFUNCTION AND ABSCESS. WILL CONTINUE TO MONITOR
[2022-05-03] MEDS: DEXTROSE 50%-WATER 50 ML DISP.SYRIN IV PRN ×3 (06:12→23:43)
--- NOTE | 2022-05-03 06:17 | NUR ---
RN NOTES: PT'S BLOOD SUGAR 61. NOTIFIED DR. MOSLEY. ORDER TO D50. NO S/S OF HYPER/HYPOGLYCEMIA. WILL CONTINUE TO MONITOR
--- NOTE | 2022-05-03 07:30 | NUR ---
OPENING NOTE: REPORT RECEIVED FROM MADINA MEDINA. ORDERS AND LABS REVIEWED DURING REPORT. MULTIPLE DRAINS DISCUSSED DURING REPORT. PT IS OBTUNDED. PEG TUBE TO GRAVITY DRAINAGE D/T GASTROPARISIS, MD'S AWARE. ALL GT MEDS ARE HELD PER MD ORDERS. PT CHECKED ON HOURLY AND PRN BY NURSING STAFF.
[2022-05-03] MEDS: MULTIVITAMINS,THERAGRAN 1 UDTAB TABLET GT SCH (08:23)
[2022-05-03] MEDS: METOPROLOL TARTRATE 25 MG TABLET GT SCH ×2 (08:23→21:00)
[2022-05-03] MEDS: BUMETANIDE (1 MG) 1 MG TABLET GT SCH (08:23)
[2022-05-03] MEDS: THERAHONEY GEL 1.5 OZ TUBE TP SCH (09:04)
[2022-05-03] MEDS: METOCLOPRAMIDE HCL 10 MG/2 ML VIAL IV SCH ×3 (09:04→18:17)
[2022-05-03] MEDS: DAKINS QUARTER STRENGTH (0.125%) 480 ML BOTTLE TOP SCH (09:04)
[2022-05-03 09:21] LABS: ABG BASE EXCESS -1.9 mmol/L; ABG OXYGEN SATURATION 97.8 % (92.0-98.5); ABG PCO2 31.3 mmHg (35.0-45.0); ABG PH 7.457 (7.350-7.450); AaDO2 59.1 mmHg; COHb 0.1 % (0.5-1.5); MetHb 0.5 % (0.0-1.5); O2Hb 97.2 % (94.0-97.0); SITE, ABG Left Radial; VENT MODE, BG AC 24 450 30% +5
[2022-05-03] MEDS: CEFTAZIDIME/AVIBACTAM 0.94 GM in IV NS 0.9% 100 ML IV SCH (10:59)
[2022-05-03] MEDS: ASCORBIC ACID 500 MG TABLET GT SCH (18:00)
--- NOTE | 2022-05-03 18:01 | NUR ---
RT PATIENT REMAINS TRACHED ON [facility] V[facility] WITH ORDERED SETTINGS. FIO2 TITRATED DOWN TO 30%. PATIENT REMAINS TACHYCARDIC AND TACHYPNEIC. NO DISTRESS NOTED. PATIENT APPEARS AT BASE LINE. AMBU BAG AND BACK UP TRACH AT BEDSIDE Addendum: 05/03/22 at 1803 by BRANDIE MEZA RT Amended: Links added.
--- NOTE | 2022-05-03 19:16 | NUR ---
END OF SHIFT NOTE: NO SIGNIFICANT EVENTS THIS SHIFT. SEE I/O CHARTING FOR DRAIN OUTPUT. BLOOD SUGAR LOW X21 THIS SHIFT, D50 GIVEN PER MD ORDERS. SACRAL AND HIP WOUNDS DEBRIDED TODAY BY CRYSTAL GOLD. PT CHECKED ON HOURLY AND PRN BY NURSING STAFF.
--- NOTE | 2022-05-03 20:25 | NUR ---
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 PATIENT TRANSFERRED TO [facility] WITH ACLS PROTOCOL. PT OBTUNDED, OPEN BOTH EYES. ON TRACH TO MECHANICAL VENT SETTINGS AND PT TOLERATED WELL. IV ACCESS ON HILDA PICC INTACT AND PATENT. NO S/S OF INFILTRATIONS. NO FACIAL GRIMACING NOTED NO ACUTE DISTRESS. RESTRAINTS ON LEFT WRIST AND HAND MITTEN. KNUTSON CATHETER, FLEXI-SEAL AND ALL OTHER DRAINAGE BAG IN PLACE. DRAINING WELL. ALL SAFETY MEASURES IN PLACE. SIDE RAILS UP X3, BED IN LOWEST POSITION AND LOCKED. PLACE CALL LIGHT WITH IN REACH. WILL CONTINUE TO MONITOR.
--- NOTE | 2022-05-03 20:34 | NUR ---
PURCHASING AND FISCAL CLERK. TRANSFERRED THE PT TO ROOM 112. REPORT GIVEN TO RAMSES MEDINA.
[2022-05-03] MEDS: MORPHINE SULFATE INJ 2 MG/ML DISP.SYRIN IV PRN (21:41)
--- NOTE | 2022-05-03 21:48 | NUR ---
RN NOTES: FOSRENOL AND LOPRESSOR NOT GIVEN DUE TO GTUBE MALFUNCTION AND ABSCESS. MORPHINE 1 ML GIVEN PER PRN ORDER. NOTED PT WITH FACIAL GRIMACING, RESTLESSNESS, V/S CHANGES. PT TOLERATED WELL. WILL CONTINUE TO MONITOR
--- NOTE | 2022-05-03 23:50 | NUR ---
RN NOTES: PT'S BLOOD SUGAR 54. D50 GIVEN. NO S/S OF HYPER/HYPOGLYCEMIA. WILL CONTINUE TO MONITOR
[2022-05-04] VITALS: BP 123/69
--- NOTE | 2022-05-04 00:31 | NUR ---
RN NOTES: BLOOD SUGAR AT THIS MOMENT 171. NO S/S OF HYPER/HYPOGLYCEMIA. WILL CONTINUE TO MONITOR
[2022-05-04 04:00] VITALS: BP 98/61
[2022-05-04] MEDS: METRONIDAZOLE 500MG/ NS 100ML 500 MG in PREMIX 1 EA IV SCH (04:19)
[2022-05-04] MEDS: LANTHANUM CARBONATE 500 MG TAB.CHEW GT SCH ×3 (04:20→21:00)
[2022-05-04] MEDS: PANTOPRAZOLE 40 MG/PACK PACK NG SCH ×2 (05:09→17:10)
--- NOTE | 2022-05-04 05:11 | NUR ---
RN NOTES: PROTONIX AND FOSRENOL ON HOLD DUE TO GTUBE MALFUNCTION AND ABSCESS. WILL CONTINUE TO MONITOR
[2022-05-04] MEDS: BLOOD SUGAR DIAGNOSTIC 1 EACH STRIP IN SCH ×3 (05:54→17:09)
[2022-05-04] MEDS: INSULIN REGULAR, HUMAN 100 UNIT/ML 3 ML VIAL SQ PRN (05:55)
--- NOTE | 2022-05-04 05:56 | NUR ---
RN NOTES: BLOOD SUGAR AT THIS MOMENT 90. NO COVERAGE NEEDED. NO S/S OF HYPER/HYPOGLYCEMIA. WILL CONTINUE TO MONITOR
[2022-05-04 06:02] LABS: BASOPHILS # (AUTO) 0.1 K/uL (0.0-0.2); BASOPHILS % (AUTO) 0.5 % (0.0-2.0); EOSINOPHILS % (AUTO) 3.9 % (0.0-6.0); HEMATOCRIT 23 % (39-51); HEMOGLOBIN 7.5 g/dL (13.5-17.5); LYMPHOCYTES # (AUTO) 0.7 K/uL (0.8-4.8); LYMPHOCYTES % (AUTO) 6.2 % (20.0-44.0); MEAN CORPUSCULAR HGB CONC 33 g/dl (31.0-36.0); MEAN CORPUSCULAR VOLUME 93 fL (80-96); MONOCYTES # (AUTO) 1.1 K/uL (0.1-1.30); MONOCYTES % (AUTO) 9.6 % (2.0-12.0); NEUTROPHILS % (AUTO) 79.8 % (43.0-81.0); PLATELET COUNT (AUTO) 140 K/uL (150-450); RED BLOOD CELL COUNT(AUTO) 2.49 MIL/uL (4.5-6.0); WHITE BLOOD COUNT (AUTO) 11.2 K/uL (4.3-11.0)
--- NOTE | 2022-05-04 06:38 | NUR ---
RN CLOSING NOTES: PT IN BED OBTUNDED, OPEN BOTH EYES. ON TRACH TO MECHANICAL VENT SETTINGS AND PT TOLERATED WELL. O2 SAT 98%. IV ACCESS ON HILDA PICC INTACT AND PATENT. NO S/S OF INFILTRATIONS. NO FACIAL GRIMACING NOTED. NO ACUTE DISTRESS. RESTRAINTS ON LEFT WRIST AND HAND MITTEN. RELEASED Q 2HOURS TO CHECK CIRCULATIONS. KNUTSON CATHETER, FLEXI-SEAL AND ALL OTHER DRAINAGE BAG IN PLACE. MINIMAL DRAINING. ALL DUE MEDS GIVEN ORDERED. ALL SAFETY MEASURES IN PLACE. SIDE RAILS UP X3, BED IN LOWEST POSITION AND LOCKED. PLACE CALL LIGHT WITH IN REACH. YORDYORSE TO MORNING SHIFT NURSE.
[2022-05-04 07:02] LABS: CALCIUM, SERUM 8.3 mg/dL (8.5-10.1); CREATININE 4.3 mg/dL (0.6-1.3); MAGNESIUM 1.8 mg/dL (1.8-2.4); PHOSPHORUS 4.5 mg/dL (2.5-4.9); POTASSIUM 2.9 mmol/L (3.5-5.1)
--- NOTE | 2022-05-04 07:30 | NUR ---
TD RN AM NOTES: PT IN BED, OBTUNDED, WITH SH #6 TRACH TO MECHANICAL VENT WITH SETTINGS ORDERED: AC 24 TV 450 FIO2 30 PEEP 5 O2 SAT 100%. RESPIRATION UNLABORED, EVEN, NO DISTRESS NOTED, HOB UP 30DEG, SINUS TACH HR 118 ON MONITOR, NO SIGNS OF PAIN, AFEBRILE, HILDA PICC LINE, FLUSHES WELL, SITE CLEAR, CDI DRESSING, RESTRAINTS ON LEFT WRIST AND HAND MITTEN RELEASED AND CHECKED FOR CIRCULATION THEN Q 2 HOURS. GT CLAMPED AT THIS TIME. KNUTSON CATHETER, FLEXI-SEAL AND ALL OTHER DRAINAGE BAG IN PLACE. DRAINING WELL. SEE NURSING FLOWSHEET FOR SKIN ISSUES, WILL PERFORM PRESCRIBED WOUND TREATMENT IN A WHILE. WILL TURN AND REPOSITION Q 2 HOURS, OFFLOADING. ALL SAFETY MEASURES IN PLACE. SIDE RAILS UP X3, BED IN LOWEST POSITION AND LOCKED. PLACE CALL LIGHT WITH IN REACH. WILL CONTINUE TO MONITOR.
[2022-05-04 08:00] VITALS: BP 98/61
[2022-05-04] MEDS: MULTIVITAMINS,THERAGRAN 1 UDTAB TABLET GT SCH (09:00)
[2022-05-04] MEDS: BUMETANIDE (1 MG) 1 MG TABLET GT SCH (09:00)
[2022-05-04] MEDS: METOPROLOL TARTRATE 25 MG TABLET GT SCH ×2 (09:00→21:00)
[2022-05-04] MEDS: METOCLOPRAMIDE HCL 10 MG/2 ML VIAL IV SCH ×3 (09:28→17:13)
[2022-05-04] MEDS: DAKINS QUARTER STRENGTH (0.125%) 480 ML BOTTLE TOP SCH (09:30)
--- NOTE | 2022-05-04 09:30 | NUR ---
MARCY MEDINA NOTES DUE MEDS GIVEN Addendum: 05/04/22 at 1749 by ALISE BAUER RN CORRECTION: DUE MEDS GIVEN EXCEPT VIA GT ROUTE DUE TO GT MALFUNCTION.
[2022-05-04] MEDS: IV D5W 1,000 ML IV SCH (10:50)
[2022-05-04] MEDS: CEFTAZIDIME/AVIBACTAM 0.94 GM in IV NS 0.9% 100 ML IV SCH (10:50)
[2022-05-04] MEDS ORDERED: POTASSIUM CL. PREMIX PERIPHER. 50 ML IV SCH (11:30)
[2022-05-04] MEDS: POTASSIUM CL. PREMIX PERIPHER. 50 ML IV SCH ×4 (11:33→14:22)
[2022-05-04 12:00] VITALS: BP 94/58
[2022-05-04] MEDS: MEROPENEM 500 MG in IV NS 0.9% 50 ML IV SCH (13:50)
[2022-05-04] MEDS: MICAFUNGIN SODIUM 100 MG in IV NS 0.9% 100 ML IV SCH (14:23)
[2022-05-04] MEDS: ALBUTEROL FS 2.5 MG/0.5 ML VIAL.NEB NEB SCH ×2 (14:43→19:50)
[2022-05-04 16:00] VITALS: BP 121/75
[2022-05-04] MEDS: ASCORBIC ACID 500 MG TABLET GT SCH (17:10)
--- NOTE | 2022-05-04 18:34 | NUR ---
TD RN CLOSING NOTES: PT IN BED, OBTUNDED, WITH SH #6 TRACH TO MECHANICAL VENT WITH SETTINGS ORDERED: AC 24 TV 450 FIO2 30 PEEP 5 O2 SAT 100%. RESPIRATION UNLABORED, EVEN, NO DISTRESS NOTED, HOB UP 30DEG, SINUS TACH HR 122 ON MONITOR, NO SIGNS OF PAIN, AFEBRILE, HILDA PICC LINE, SITE CLEAR, CDI DRESSING, D5W INFUSING AT 75 ML/HR, RESTRAINTS ON LEFT WRIST AND HAND MITTEN RELEASED AND CHECKED FOR CIRCULATION THEN Q 2 HOURS. GT CLAMPED AT THIS TIME. KNUTSON CATHETER, FLEXI-SEAL AND ALL OTHER DRAINAGE BAG IN PLACE. DRAINING WELL. PERFORMED PRESCRIBED PM CARE AND WOUND TREATMENT, TURNED AND REPOSITIONED Q 2 HOURS, OFFLOADING. ALL SAFETY MEASURES IN PLACE. SIDE RAILS UP X3, BED IN LOWEST POSITION AND LOCKED. CALL LIGHT WITH IN REACH. HOB UP X 30DEG. NO OTHER SIGNIFICANT CHANGE IN CONDITION. WILL ENDORSE TO NEXT SHIFT FOR [place].
[2022-05-04 20:00] VITALS: BP 115/71
[2022-05-04] MEDS: MORPHINE SULFATE INJ 2 MG/ML DISP.SYRIN IV PRN (20:33)
[2022-05-05] VITALS: BP 107/82
[2022-05-05] MEDS: BLOOD SUGAR DIAGNOSTIC 1 EACH STRIP IN SCH ×5 (01:21→23:50)
[2022-05-05] MEDS: ALBUTEROL FS 2.5 MG/0.5 ML VIAL.NEB NEB SCH ×4 (02:04→20:18)
[2022-05-05] MEDS: MEROPENEM 500 MG in IV NS 0.9% 50 ML IV SCH ×2 (02:25→14:44)
[2022-05-05] MEDS: LORAZEPAM INJ 2 MG/ML VIAL IV PRN (03:54)
[2022-05-05 04:00] VITALS: BP 114/69
[2022-05-05] MEDS: IV D5W 1,000 ML IV SCH ×2 (04:18→13:04)
[2022-05-05] MEDS: LANTHANUM CARBONATE 500 MG TAB.CHEW GT SCH ×3 (04:51→21:00)
[2022-05-05] MEDS: PANTOPRAZOLE 40 MG/PACK PACK NG SCH ×2 (06:00→18:00)
--- NOTE | 2022-05-05 06:00 | NUR ---
RN NOTE: EYES OPEN. RESPONSIVE TO NON VERBAL STIMULI. MOIST ORAL MUCOSA. TRACH ATTACHED TO VENT WORKING AT PRESCRIBED SETTINGS. PICC LINE ON RIGHT UPPER ARM WITH NO S/S OF COMPLICATIONS IVF D5W AT 75 ML/HR. NO S/S OF FLUID OVERLOAD. BLOOD GLUCOSE CHECKED WITH NO COVERAGE. NO S/S OF HYPO OR HYPERGLYCEMIA. REMAINS NPO INCLUDING MEDICATIONS. THROUGHOUT SHIFT WITH EPISODES OF SINUS TACHY RANGING 120-140'S. ON PAIN MANAGEMENT WITH MORPHINE SULFATE AND EFFECTIVE, ATIVAN GIVEN ORDERED AND EFFECTIVE. KEPT CLEAN AND COMFORTABLE, TURNED AND REPOSITIONED WITH PILLOWS. GT CLAMPED ORDERED. ALL DRAINING TUBES IN PLACE. WOUND CARE PROVIDED. HOB ELEVATED AT SEMI-FOWLERS POSITION, BILATERAL HALF SIDE RAILS UP X2, BED IN LOW POSITION, BED IS LOCKED, EXIT ALARM ON , CALL LIGHT IN REACH.
--- NOTE | 2022-05-05 07:10 | NUR ---
RN NOTE RECEIVED PATIENT IN BED RESTING OBTUNDED,NON VERBAL,ON MECHANICAL VENT SETTING PRESCRIBED,TACHYCARDIA 118,NPO INCLUDED ALL PO MEDS GT CLAMPED,RECTAL TUBE IN PLACE,KNUTSON IN PLACE,IV SITE IS ON RIGHT UPPER ARM PICC LINE INTACT PATENT,ON D5W 75CC/HR,CHOLECYSTOMY DRAIN IN PLACE,SOFT LEFT WRIST RESTRAIN,IN PLACE WILL CHECK EVERY 15 MINS FOR SKIN BREAKDOWN,CIRCULATION,SAFETY MEASURE IMPLEMENT BED IN LOW POSITION AND LOCKED,HEAD OF THE BED ELEVATED CONTINUE TO MONITOR.
[2022-05-05 07:16] LABS: BASOPHILS % (AUTO) 0.2 % (0.0-2.0); EOSINOPHILS % (AUTO) 2.8 % (0.0-6.0); HEMATOCRIT 24 % (39-51); HEMOGLOBIN 7.5 g/dL (13.5-17.5); LYMPHOCYTES # (AUTO) 0.8 K/uL (0.8-4.8); LYMPHOCYTES % (AUTO) 5.7 % (20.0-44.0); MEAN CORPUSCULAR HGB CONC 32 g/dl (31.0-36.0); MEAN CORPUSCULAR VOLUME 93 fL (80-96); NEUTROPHILS % (AUTO) 84.3 % (43.0-81.0); PLATELET COUNT (AUTO) 125 K/uL (150-450); RED BLOOD CELL COUNT(AUTO) 2.53 MIL/uL (4.5-6.0); WHITE BLOOD COUNT (AUTO) 14.3 K/uL (4.3-11.0)
[2022-05-05 07:50] LABS: CALCIUM, SERUM 8.6 mg/dL (8.5-10.1); CREATININE 4.6 mg/dL (0.6-1.3); MAGNESIUM 1.8 mg/dL (1.8-2.4); PHOSPHORUS 4.6 mg/dL (2.5-4.9); POTASSIUM 3.1 mmol/L (3.5-5.1)
[2022-05-05 08:00] VITALS: BP 117/74
[2022-05-05] MEDS: BUMETANIDE (1 MG) 1 MG TABLET GT SCH (09:00)
[2022-05-05] MEDS: MULTIVITAMINS,THERAGRAN 1 UDTAB TABLET GT SCH (09:00)
[2022-05-05] MEDS: METOPROLOL TARTRATE 25 MG TABLET GT SCH ×2 (09:00→21:00)
[2022-05-05] MEDS: DAKINS QUARTER STRENGTH (0.125%) 480 ML BOTTLE TOP SCH (09:25)
[2022-05-05] MEDS: METOCLOPRAMIDE HCL 10 MG/2 ML VIAL IV SCH ×3 (09:29→17:16)
[2022-05-05 12:00] VITALS: BP 128/76
[2022-05-05] MEDS ORDERED: AMIKACIN 250 MG in IV D5W 100 ML IV SCH (13:00)
[2022-05-05] MEDS: MICAFUNGIN SODIUM 100 MG in IV NS 0.9% 100 ML IV SCH (14:44)
[2022-05-05] MEDS ORDERED: EPOETIN ALFA (10,000 UNIT) 10,000 UNIT/ML VIAL SQ SCH (15:00)
[2022-05-05] MEDS ORDERED: POTASSIUM CHLORIDE 10 MEQ/50 ML PREMIXED IVPB FOR PERIPHERAL LINE IV ONE ×4 (15:00→18:00)
[2022-05-05 16:00] VITALS: BP 115/68
[2022-05-05] MEDS: EPOETIN ALFA-EPBX 10,000 UNIT/ML VIAL IV SCH (16:08)
[2022-05-05] MEDS: ASCORBIC ACID 500 MG TABLET GT SCH (18:00)
--- NOTE | 2022-05-05 18:58 | NUR ---
RN NOTE PATIENT REMAINS OBTUNDED ON MECHANICAL VENT NO SOB NOT ACUTE DISTRESS NOTED,TACHYCARDIA,HR 118-121,ON IV HYDRATION D5W 75CC/HR ,NPO,NO PO MEDS,GT CLAMPED,ALL TUBES IN PLACE KEPT CLEAN AND DRY ALL THE TIME,REPOSITIONED EVERY 2 HOURS KEPT HEAD OF THE BED ELEVATED,REPLACED POTASSIUM,ENDORSE NEXT COMING SHIFT FOR CONTINUATION OF CARE.
[2022-05-05 20:00] VITALS: BP 125/78
--- NOTE | 2022-05-05 21:35 | NUR ---
RN NOTE MEDS VIA GTUBE NON ADMINISTERED GTUBE CONNECTED TO DRAIN.
[2022-05-06] VITALS: BP 117/78
--- NOTE | 2022-05-06 01:56 | NUR ---
RN NOTE Patient in bed, obtunded, in no acute distress, on trach to mechanical vent with prescribed settings, saturation at 95%, ST on the monitor, HR is 115. HILDA TL PICC in place, no sign of infection or bleeding. Gtube connected to drain in place. Nephrostomy tube, psoas drain, de anda catheter and flexiseal draining to gravity. Soft wrist restraints at L wrist in place, skin and circulation are WNL. Safety measures in place, will continue to monitor and reassess.
[2022-05-06] MEDS: ALBUTEROL FS 2.5 MG/0.5 ML VIAL.NEB NEB SCH ×4 (01:58→19:46)
[2022-05-06] MEDS: IV D5W 1,000 ML IV SCH ×2 (02:14→15:18)
[2022-05-06] MEDS: MEROPENEM 500 MG in IV NS 0.9% 50 ML IV SCH ×2 (02:14→13:53)
[2022-05-06 04:00] VITALS: BP 117/73
[2022-05-06] MEDS: LANTHANUM CARBONATE 500 MG TAB.CHEW GT SCH ×3 (05:00→21:00)
[2022-05-06 05:53] LABS: BASOPHILS % (AUTO) 0.2 % (0.0-2.0); HEMATOCRIT 24 % (39-51); HEMOGLOBIN 7.5 g/dL (13.5-17.5); LYMPHOCYTES # (AUTO) 0.8 K/uL (0.8-4.8); LYMPHOCYTES % (AUTO) 5.9 % (20.0-44.0); MEAN CORPUSCULAR HGB CONC 32 g/dl (31.0-36.0); MEAN CORPUSCULAR VOLUME 93 fL (80-96); MONOCYTES # (AUTO) 0.9 K/uL (0.1-1.30); MONOCYTES % (AUTO) 6.9 % (2.0-12.0); NEUTROPHILS # (AUTO) 11.1 K/uL (1.8-8.9); PLATELET COUNT (AUTO) 108 K/uL (150-450); RED BLOOD CELL COUNT(AUTO) 2.54 MIL/uL (4.5-6.0); WHITE BLOOD COUNT (AUTO) 13.3 K/uL (4.3-11.0)
[2022-05-06] MEDS: PANTOPRAZOLE 40 MG/PACK PACK NG SCH ×2 (06:00→18:00)
[2022-05-06] MEDS: INSULIN REGULAR, HUMAN 100 UNIT/ML 3 ML VIAL SQ PRN (06:10)
--- NOTE | 2022-05-06 06:13 | NUR ---
RT Pt recvd on ordered AC vent settings with alarms on and audible. Trach is patent and secured. Suction Q2/PRN. Neb tx given and patience well. No SOB or Respiratory Distress noted throughout shift. Vent plugged into red outlet, ambu and spare trach at bedside.
[2022-05-06 06:18] LABS: CALCIUM, SERUM 8.4 mg/dL (8.5-10.1); CREATININE 4.7 mg/dL (0.6-1.3); MAGNESIUM 1.7 mg/dL (1.8-2.4); PHOSPHORUS 4.5 mg/dL (2.5-4.9); POTASSIUM 3.6 mmol/L (3.5-5.1)
[2022-05-06] MEDS: BLOOD SUGAR DIAGNOSTIC 1 EACH STRIP IN SCH ×4 (06:22→23:49)
--- NOTE | 2022-05-06 07:30 | NUR ---
RN NOTE RECEIVED PATIENT IN BED OBTUNDED,ON MECHANICAL VENT SETTING PRESCIBED,NPO INCLUDED ALL PO MEDS NO EXCEPTION,G TUBE CONNECTED TO DRAIN IN PLACE NEPHROSTOMY TUBE PSOAS DRAIN,KNUTSON CATHETER AND FLEXISEAL DRAINING TO GRAVITY,LEFT WRIST SOFT RESTRAIN IN PLACE,SAFETY MEASURE IMPLEMENT BED IN LOW POSITION AND LOCKED,RIGHT UPPER ARM IV SITE INTACT PATENT ON D5W AT 75CC/HR HEAD OF THE BED ELEVATED CONTINUE OT MONITOR.
[2022-05-06] MEDS ORDERED: IV NS 0.9% 100 ML BAG IV ONE (07:44)
[2022-05-06 08:00] VITALS: BP 94/60
[2022-05-06] MEDS: METOCLOPRAMIDE HCL 10 MG/2 ML VIAL IV SCH ×3 (08:04→16:27)
[2022-05-06] MEDS: DAKINS QUARTER STRENGTH (0.125%) 480 ML BOTTLE TOP SCH (08:05)
[2022-05-06] MEDS: MULTIVITAMINS,THERAGRAN 1 UDTAB TABLET GT SCH (08:11)
[2022-05-06] MEDS: BUMETANIDE (1 MG) 1 MG TABLET GT SCH (08:11)
[2022-05-06] MEDS: METOPROLOL TARTRATE 25 MG TABLET GT SCH ×2 (08:21→21:00)
[2022-05-06 12:00] VITALS: BP 95/59
[2022-05-06] MEDS: MICAFUNGIN SODIUM 100 MG in IV NS 0.9% 100 ML IV SCH (14:04)
[2022-05-06] MEDS ORDERED: Magnesium 1GM/D5W 100ML PREMIX 100 ML IV SCH (15:00)
[2022-05-06 16:00] VITALS: BP 118/64
[2022-05-06] MEDS: ASCORBIC ACID 500 MG TABLET GT SCH (18:00)
--- NOTE | 2022-05-06 19:15 | NUR ---
RN NOTE Patient in bed, obtunded, in no acute distress, on trach to mechanical vent with prescribed settings, saturation at 99%, ST on the monitor, HR is 100. HILDA TL PICC in place, no sign of infection or bleeding. Gtube connected to drain in place. Nephrostomy tube, psoas drain, de anda catheter and flexiseal draining to gravity. Soft wrist restraints at L wrist in place, skin and circulation are WNL. Safety measures implemented, will continue to monitor and reassess. Addendum: 05/06/22 at 2157 by NEGRITA LANDEROS RN Cholecystostomy tube in place.
--- NOTE | 2022-05-06 19:19 | NUR ---
RN NOTE PATIENT REMAINS OBTUNDED ON VENT NO SOB NOT ACUTE DISTRESS NOTED KEPT CLEAN AND DRY ALL THE TIME,REPOSITIONED AND TURNED EVERY 2 HOURS,HEAD OF THE BED ELEVATED ALL THE TIME,ENDORSE NEXT COMING SHIFT FOR CONTINUATION OF CARE.
[2022-05-06 20:00] VITALS: BP 99/54
[2022-05-06] MEDS: PANTOPRAZOLE 40 MG VIAL IV SCH (21:03)
[2022-05-06] MEDS: ONDANSETRON HCL/PF 4 MG/2 ML VIAL IVP PRN (21:17)
[2022-05-07] VITALS: BP 100/59
[2022-05-07] MEDS: ALBUTEROL FS 2.5 MG/0.5 ML VIAL.NEB NEB SCH ×3 (01:29→12:46)
[2022-05-07] MEDS: MEROPENEM 500 MG in IV NS 0.9% 50 ML IV SCH ×2 (02:20→13:35)
[2022-05-07 04:00] VITALS: BP 111/69
[2022-05-07] MEDS: IV D5W 1,000 ML IV SCH (04:53)
[2022-05-07] MEDS: LANTHANUM CARBONATE 500 MG TAB.CHEW GT SCH ×3 (05:00→21:00)
[2022-05-07] MEDS: BLOOD SUGAR DIAGNOSTIC 1 EACH STRIP IN SCH ×3 (05:17→17:41)
[2022-05-07 06:48] LABS: BASOPHILS # (AUTO) 0.1 K/uL (0.0-0.2); BASOPHILS % (AUTO) 0.7 % (0.0-2.0); EOSINOPHILS % (AUTO) 4.5 % (0.0-6.0); HEMATOCRIT 22 % (39-51); LYMPHOCYTES # (AUTO) 1.3 K/uL (0.8-4.8); LYMPHOCYTES % (AUTO) 9.5 % (20.0-44.0); MEAN CORPUSCULAR HGB CONC 33 g/dl (31.0-36.0); MEAN CORPUSCULAR VOLUME 92 fL (80-96); MONOCYTES # (AUTO) 1.1 K/uL (0.1-1.30); MONOCYTES % (AUTO) 8.5 % (2.0-12.0); NEUTROPHILS # (AUTO) 10.1 K/uL (1.8-8.9); NEUTROPHILS % (AUTO) 76.8 % (43.0-81.0); PLATELET COUNT (AUTO) 99 K/uL (150-450); RED BLOOD CELL COUNT(AUTO) 2.34 MIL/uL (4.5-6.0); WHITE BLOOD COUNT (AUTO) 13.1 K/uL (4.3-11.0)
[2022-05-07 07:05] LABS: CALCIUM, SERUM 8.1 mg/dL (8.5-10.1); CREATININE 4.7 mg/dL (0.6-1.3); MAGNESIUM 1.9 mg/dL (1.8-2.4); POTASSIUM 3.3 mmol/L (3.5-5.1)
--- NOTE | 2022-05-07 07:30 | NUR ---
RN OPENING NOTE PATIENT IS IN BED, ASLEEP BUT EASILY AROUSABLE. WITH TRACHEOSTOMY TO MECHANICAL VENTILATOR WITH THE FOLLOWING SETTINGS: AC MODE, RR 24, TV 450, FIO2 30% , PEEP 5. SINUS TACHYCARDIA ON EMBROIDERY CUTTER. BREATHING UNLABORED AND NOT IN ANY FORM OF DISTRESS. RIGHT UPPER ARM PICC LINE INFUSING WITH D5W AT 75 ML/HR. FLEXISEAL INTACT, CHOLECYSTOSTOMY DRAIN INTACT AND DRAINING TO A BROWN COLORED FLUID. PSOAS DRAIN INTACT AND DRAINING TO A BROWN COLORED FLUID. G-TUBE INTACT AND CONNECTED TO DRAIN. KNUTSON CATHETER INTACT DRAINING TO A YELLOW COLORED URINE. AT PRESENT, TUBE FEEDING ON HOLD. ALL HOSPITAL SAFETY MEASURES IN PLACE. BED IS LOCKED IN LOWEST POSITION, 3 SIDE RAILS UP, CALL LIGHT WITHIN REACH. WILL CONTINUE TO MONITOR THROUGHOUT SHIFT.
[2022-05-07] MEDS: PANTOPRAZOLE 40 MG VIAL IV SCH ×2 (07:54→20:09)
[2022-05-07 08:06] VITALS: BP 112/58
--- NOTE | 2022-05-07 08:44 | NUR ---
RN NOTE MEDS VIA G-TUBE NOT GIVEN DUE TO G-TUBE CONNECTED TO DRAIN AND TUBE FEEDING ON HOLD.
[2022-05-07] MEDS: METOPROLOL TARTRATE 25 MG TABLET GT SCH ×2 (08:45→21:00)
[2022-05-07] MEDS: MULTIVITAMINS,THERAGRAN 1 UDTAB TABLET GT SCH (08:45)
[2022-05-07] MEDS: METOCLOPRAMIDE HCL 10 MG/2 ML VIAL IV SCH ×3 (08:51→17:41)
[2022-05-07] MEDS: DAKINS QUARTER STRENGTH (0.125%) 480 ML BOTTLE TOP SCH (08:58)
[2022-05-07] MEDS ORDERED: POTASSIUM CHLORIDE 20 MEQ POWDER PACKET NG SCH (09:00)
[2022-05-07] MEDS ORDERED: BUMETANIDE INJ 0.25 MG/ML VIAL IJ SCH (09:00)
[2022-05-07] MEDS: POTASSIUM CL. PREMIX PERIPHER. 50 ML IV SCH ×4 (09:29→12:19)
[2022-05-07] MEDS ORDERED: EPOETIN ALFA (10,000 UNIT) 10,000 UNIT/ML VIAL IV ONE (10:00)
[2022-05-07] MEDS: IV NS 0.9% 250 ML IV PRN (11:41)
[2022-05-07 12:00] VITALS: BP 118/68
--- NOTE | 2022-05-07 12:38 | NUR ---
RN NOTE MEDS VIA G-TUBE NOT GIVEN DUE TO G-TUBE CONNECTED TO DRAIN AND TUBE FEEDING ON HOLD.
[2022-05-07] MEDS: MICAFUNGIN SODIUM 100 MG in IV NS 0.9% 100 ML IV SCH (14:24)
--- NOTE | 2022-05-07 15:25 | NUR ---
RN NOTE RENDERED THE FOLLOWING TO THE PATIENT: WOUND CARE, TRACHEOSTOMY CARE, PEG CARE, AND ORAL CARE.
[2022-05-07 16:12] VITALS: BP 117/57
[2022-05-07] MEDS: DEXTROSE 50%-WATER 50 ML DISP.SYRIN IV PRN (17:29)
[2022-05-07] MEDS: ASCORBIC ACID 500 MG TABLET GT SCH (17:41)
--- NOTE | 2022-05-07 18:42 | NUR ---
RN CLOSING NOTE PATIENT REMAINED STABLE THROUGHOUT SHIFT. TOLERATES MECHANICAL VENTILATOR SETTINGS, WITH OXYGEN SATURATION AT 98%. BREATHING UNLABORED AND NOT IN ANY FORM OF DISTRESS. STILL NO FEEDING GIVEN VIA G-TUBE. POST CHOLECYSTOSTOMY WOUND DRAIN AND PSOAS WOUND DRAIN REMAIN INTACT. KNUTSON CATHETER REMAINS INTACT, RIGHT UPPER ARM PICC LINE INTACT AND PATENT. ALL HOSPITAL SAFETY PRECAUTIONS IN PLACE. WILL ENDORSE TO SALES AND OPERATIONS TRAINEE NURSE.
--- NOTE | 2022-05-07 19:15 | NUR ---
RN NOTE Patient in bed, obtunded, in no acute distress, on trach to mechanical vent with prescribed settings, saturation at 99%, ST on the monitor, HR is 100. HILDA TL PICC in place, no sign of infection or bleeding. Gtube connected to drain in place. Cholecystotomy tube, psoas drain, de anda catheter and flexiseal draining to gravity. Soft wrist restraints at L wrist in place, skin and circulation are WNL. Safety measures implemented, will continue to monitor and reassess.
--- NOTE | 2022-05-07 19:46 | NUR ---
RT PT RECVD ON ORDERED AC VENT SETTINGS, TRACH IS PATENT AND SECURED. NO SOB OR RESPIRATORY DISTRESS NOTED AT THIS TIME. SUCTION PRN, MINIMAL SECRETIONS. VENT IS PLUGGED INTO RED OUTLET WITH ALARMS ON AND AUDIBLE. SPARE TRACH AND AMBU AT BEDSIDE.
[2022-05-07 20:00] VITALS: BP 96/67
[2022-05-07] MEDS: LORAZEPAM INJ 2 MG/ML VIAL IV PRN (20:20)
[2022-05-08] VITALS: BP 116/75
[2022-05-08] MEDS: BLOOD SUGAR DIAGNOSTIC 1 EACH STRIP IN SCH ×5 (00:14→23:03)
[2022-05-08] MEDS: MEROPENEM 500 MG in IV NS 0.9% 50 ML IV SCH ×2 (02:08→13:07)
[2022-05-08 04:00] VITALS: BP 108/74
[2022-05-08] MEDS: LANTHANUM CARBONATE 500 MG TAB.CHEW GT SCH ×3 (05:00→20:36)
[2022-05-08 06:23] LABS: BASOPHILS # (AUTO) 0.1 K/uL (0.0-0.2); BASOPHILS % (AUTO) 0.7 % (0.0-2.0); HEMATOCRIT 21 % (39-51); LYMPHOCYTES # (AUTO) 0.8 K/uL (0.8-4.8); LYMPHOCYTES % (AUTO) 6.6 % (20.0-44.0); MEAN CORPUSCULAR HGB CONC 33 g/dl (31.0-36.0); MEAN CORPUSCULAR VOLUME 93 fL (80-96); MONOCYTES # (AUTO) 0.7 K/uL (0.1-1.30); MONOCYTES % (AUTO) 5.9 % (2.0-12.0); NEUTROPHILS # (AUTO) 9.6 K/uL (1.8-8.9); NEUTROPHILS % (AUTO) 82.8 % (43.0-81.0); PLATELET COUNT (AUTO) 85 K/uL (150-450); RED BLOOD CELL COUNT(AUTO) 2.28 MIL/uL (4.5-6.0); WHITE BLOOD COUNT (AUTO) 11.6 K/uL (4.3-11.0)
--- NOTE | 2022-05-08 06:43 | NUR ---
RN NOTE NOTED LATEST BLOOD GLUCOSE 64, PT NPO WITH GTUBE TO DRAIN, AND D5W WAS DC'D YESTERDAY. VITALS STABLE. DR SÁNCHEZ MADE AWARE. Addendum: 05/08/22 at 0704 by NEGRITA LANDEROS RN ORDER RECEIVED FOR D50 IVP X 1.
[2022-05-08 06:57] LABS: CALCIUM, SERUM 8.3 mg/dL (8.5-10.1); PHOSPHORUS 4.4 mg/dL (2.5-4.9); POTASSIUM 3.7 mmol/L (3.5-5.1); TOTAL PROTEIN, SERUM 6.1 g/dL (6.4-8.2)
[2022-05-08 07:14] LABS: HEMOGLOBIN 6.9 g/dL (13.5-17.5)
[2022-05-08] MEDS ORDERED: DEXTROSE 50%-WATER 50 ML DISP.SYRIN IVP ONE (07:30)
[2022-05-08 07:39] LABS: ALBUMIN 0.9 g/dL (3.4-5.0)
[2022-05-08 08:00] VITALS: BP 117/76
[2022-05-08 08:00] LABS: EOSINOPHILS % (MANUAL) 3 % (0-4); LYMPHOCYTES % (MANUAL) 7 % (16-48); MONOCYTES % (MANUAL) 6 % (0-11.0); NEUTROPHILS % (MANUAL) 84 (42-76)
--- NOTE | 2022-05-08 08:00 | NUR ---
OFFSET PRESS OPERATOR APPRENTICE NOTE PATIENT IN BED OBTUNDED ON VENT SETTING ORDERED, TOLERATES MECHANICAL VENTILATOR SETTINGS, WITH OXYGEN SATURATION AT 98%. BREATHING SLIGHTLY LABORED ,STILL NO FEEDING GIVEN VIA G-TUBE. POST CHOLECYSTOSTOMY WOUND DRAIN AND PSOAS WOUND DRAIN REMAIN INTACT. KNUTSON CATHETER REMAINS INTACT,WITH RECTAL FLEXISEAL TUNE IN PLACE ,RIGHT UPPER ARM PICC LINE INTACT AND PATENT. ALL HOSPITAL SAFETY PRECAUTIONS IN PLACE. ON TELE MONITOR SR HR 88
[2022-05-08] MEDS: PANTOPRAZOLE 40 MG VIAL IV SCH ×2 (08:31→20:35)
[2022-05-08] MEDS: MULTIVITAMINS,THERAGRAN 1 UDTAB TABLET GT SCH ×2 (08:31→08:37)
[2022-05-08] MEDS: METOCLOPRAMIDE HCL 10 MG/2 ML VIAL IV SCH ×3 (08:31→16:15)
[2022-05-08] MEDS: DAKINS QUARTER STRENGTH (0.125%) 480 ML BOTTLE TOP SCH (08:32)
[2022-05-08] MEDS: METOPROLOL TARTRATE 25 MG TABLET GT SCH ×3 (08:32→20:36)
--- NOTE | 2022-05-08 09:49 | NUR ---
BARK PRESS OPERATOR NOTE DR OTERO GUEST RELATIONS ASSOCIATE AT BEDSIDE NOTIFIED THAT STILL HAVE CHEST CONGESTION AND NOISY SOUND NEAR TRACH ,STATED DUE TO PRESSURE, CONT VENT SETTING ORDERED
--- NOTE | 2022-05-08 09:52 | NUR ---
VISUAL STYLIST NOTE PER DIETARY RECOMMENDATION OK TO HAVE TPN CALLED TO DR ALETHA COYLE TO START TPN , ALSO NOTIFIED HG 6.9 AWAITING FOR ORDER ABOUT HG 6.9
[2022-05-08] MEDS ORDERED: TPN/PPN PER PHARMACY IV PRN (10:00)
[2022-05-08] MEDS ORDERED: TPN BAG #1 IV SCH ×4 (11:00)
--- NOTE | 2022-05-08 11:02 | NUR ---
SUPERVISOR COMPUTER OPERATIONS NOTE PER DR PASCUAL TO ORDER 1 UNIT PRBC ,ORDER CARRIED OUT
[2022-05-08 11:18] LABS: HEMOGLOBIN 7.2 g/dL (13.5-17.5)
[2022-05-08 11:32] LABS: PREALBUMIN 7.2 MG/DL (18.0-35.7)
[2022-05-08 11:35] LABS: ALBUMIN 0.9 g/dL (3.4-5.0)
--- NOTE | 2022-05-08 12:00 | NUR ---
FINAL INSPECTION SUPERVISOR NOTE UNABLE TO REPOSITION,HEMODYNAMICALLY NOT STABLE, BP 92/59 SATURATION 89% , CALLED RT . TRACH SUCTION DONE , WILL MONITOR
--- NOTE | 2022-05-08 12:18 | NUR ---
television camera operator note hg rechecked now 7.2 ,reported to dr adam bryant to hold blood transfusion blood bank notified
[2022-05-08 12:33] VITALS: BP 99/59
[2022-05-08] MEDS: MICAFUNGIN SODIUM 100 MG in IV NS 0.9% 100 ML IV SCH (14:08)
--- NOTE | 2022-05-08 14:18 | NUR ---
NANNETTE MEDINA NOTE SATURATION 93% AT THIS TIME ,RT CHANGED FIO2 40% ,WILL MONITOR Addendum: 05/08/22 at 1537 by DANILO ALVARADO RN rt at bedside saturation 96% at this time
[2022-05-08 16:00] VITALS: BP 98/59
[2022-05-08] MEDS: ASCORBIC ACID 500 MG TABLET GT SCH (17:10)
--- NOTE | 2022-05-08 18:08 | NUR ---
CARPENTER MATE NOTE G TUBE DRAINAGE 150 ML OF DRAINAGE, CHOLECYSTOSTOMY DRAINAGE IS 50 ML , PSOAS DRAIN NO DRAINAGE
--- NOTE | 2022-05-08 18:43 | NUR ---
TELE R NOTE PATIENT IN BED , AWAKE ,BOTH EYES OPEN, NOT FOLLOW ANY COMMAND , WITH TRACH TO VENT SETTING ORDERED CURRENT SATURATION 96%, TRACH CARE AND ORAL CARE DONE , KEEP CLEAN DRY, WITH KNUTSON CATH TO GRAVITY WITH YELLOW COLOR URINE SMALL AMT ALSO WITH FLEXSEAL RECTAL TUBE IN PLACE FLUSHED WELL , G TUBE DRAIN IN PLACE WITH YELLOW COLOR NOTED , RT CHOLECYSTOMY DRAIN WITH DARK TORRES COLOR DRAINAGE NOTED, , NO DRAINAGE NOTED FROM LT PSOAS DRAIN , RT UPPER ARM PICC LINE IN PLACE, CONT ON TPN ORDERED , WITH LT MITTEN RESTRAIN IN PLACED ORDERED ,UNABLE TO REMOVE STILL AT RISK TO REMOVE ALL LINES AND TUBES , BED IN LOWEST AND LOCKED POSITION , CALL LIGHT WITHIN REACH , WILL CONT TO MONITOR
--- NOTE | 2022-05-08 19:30 | NUR ---
PT AWAKE IN BED, A/O X BOTH EYES OPEN, NON VERBAL AND DOES NOT FOLLOW ANY COMMAND, WITH TRACH TO VENT SETTING ORDERED CURRENT SATURATION 96%, WITH KNUTSON CATH TO GRAVITY WITH YELLOW COLOR URINE SMALL AMT ALSO WITH FLEXSEAL RECTAL TUBE IN PLACE FLUSHED WELL , G TUBE DRAIN IN PLACE WITH YELLOW COLOR NOTED, RT CHOLECYSTOMY DRAIN WITH DARK TORRES COLOR DRAINAGE NOTED, NO DRAINAGE NOTED FROM LT PSOAS DRAIN, RT UPPER ARM PICC LINE IN PLACE, CONT ON TPN ORDERED, WITH LT MITTEN RESTRAIN IN PLACE ORDERED, UNABLE TO REMOVE STILL AT RISK TO REMOVE ALL LINES AND TUBES, SAFETY MEASURES IN PLACE. BED IN LOWEST AND LOCKED POSITION, HEAD OF BED SLIGHTLY ELEVATED, SIDE RAILS UP X2, CALL LIGHT WITHIN REACH, WILL CONTINUE PLAN OF CARE.
[2022-05-08 20:00] VITALS: BP 111/67
[2022-05-08] MEDS: INSULIN REGULAR, HUMAN 100 UNIT/ML 3 ML VIAL SQ PRN (23:06)
[2022-05-09] VITALS (9 sets, daily range): BP systolic 90–126; BP diastolic 59–81
[2022-05-09] MEDS: MEROPENEM 500 MG in IV NS 0.9% 50 ML IV SCH ×2 (01:32→14:35)
[2022-05-09] MEDS: IV NS 0.9% 250 ML IV PRN (03:51)
[2022-05-09] MEDS: LANTHANUM CARBONATE 500 MG TAB.CHEW GT SCH ×2 (04:06→13:00)
[2022-05-09] MEDS: BLOOD SUGAR DIAGNOSTIC 1 EACH STRIP IN SCH ×3 (05:01→18:32)
[2022-05-09 06:10] LABS: BASOPHILS # (AUTO) 0.1 K/uL (0.0-0.2); BASOPHILS % (AUTO) 0.4 % (0.0-2.0); EOSINOPHILS % (AUTO) 1.9 % (0.0-6.0); LYMPHOCYTES # (AUTO) 0.6 K/uL (0.8-4.8); MEAN CORPUSCULAR HGB CONC 32 g/dl (31.0-36.0); MEAN CORPUSCULAR VOLUME 93 fL (80-96); MONOCYTES # (AUTO) 0.8 K/uL (0.1-1.30); MONOCYTES % (AUTO) 6.7 % (2.0-12.0); NEUTROPHILS # (AUTO) 10.4 K/uL (1.8-8.9); PLATELET COUNT (AUTO) 71 K/uL (150-450); RED BLOOD CELL COUNT(AUTO) 2.15 MIL/uL (4.5-6.0); WHITE BLOOD COUNT (AUTO) 12.2 K/uL (4.3-11.0)
[2022-05-09 06:45] LABS: HEMATOCRIT 20 % (39-51); HEMOGLOBIN 6.5 g/dL (13.5-17.5)
--- NOTE | 2022-05-09 06:54 | NUR ---
PT AWAKE IN BED, BOTH EYES OPEN, NON VERBAL AND DOES NOT FOLLOW ANY COMMAND, WITH TRACH TO VENT SETTING ORDERED CURRENT SATURATION 99%, WITH KNUTSON CATH TO GRAVITY WITH YELLOW COLOR URINE SMALL AMT ALSO WITH FLEXSEAL RECTAL TUBE IN PLACE FLUSHED WELL , G TUBE DRAIN IN PLACE WITH YELLOW COLOR NOTED, RT CHOLECYSTOMY DRAIN WITH DARK TORRES COLOR DRAINAGE NOTED, NO DRAINAGE NOTED FROM LT PSOAS DRAIN, RT UPPER ARM PICC LINE IN PLACE, CONT ON TPN ORDERED, WITH LT MITTEN RESTRAIN IN PLACE ORDERED, UNABLE TO REMOVE STILL AT RISK TO REMOVE ALL LINES AND TUBES, SAFETY MEASURES MAINTAINED. BED IN LOWEST AND LOCKED POSITION, HEAD OF BED SLIGHTLY ELEVATED, SIDE RAILS UP X2, CALL LIGHT WITHIN REACH, WILL ENDORSE TO NEXT NURSE ON DUTY FOR CONTINUITY OF CARE.
[2022-05-09 06:58] LABS: ALKALINE PHOSPHATASE 147 U/L (46-116); ASPARTATE AMINOTRANSFERASE 40 U/L (15-37); BILIRUBIN,TOTAL 1.8 mg/dL (0.2-1.0); CALCIUM, SERUM 8.2 mg/dL (8.5-10.1); CARBON DIOXIDE 27 mmol/L (21-32); CHLORIDE 106 mmol/L (98-107); CREATININE 5.2 mg/dL (0.6-1.3); GLUCOSE 151 mg/dL (74-106); MAGNESIUM 1.8 mg/dL (1.8-2.4); PHOSPHORUS 3.2 mg/dL (2.5-4.9); SODIUM SERUM 143 mmol/L (136-145); TOTAL PROTEIN, SERUM 5.8 g/dL (6.4-8.2); UREA NITROGEN, BLOOD 44 mg/dL (7-18)
[2022-05-09 07:03] LABS: ALBUMIN 0.8 g/dL (3.4-5.0)
[2022-05-09 07:14] LABS: CHOLESTEROL 51 mg/dL (<200); LDL 14 mg/dL (0-99); TRIGLYCERIDES 185 mg/dL (30-150)
--- NOTE | 2022-05-09 07:27 | NUR ---
DIELECTRIC TESTING MACHINE OPERATOR OPENING NOTES: RECEIVED PT IN BED RESTING COMFORTABLY. PATIENT IN NO S/SX OF ACUTE DISTRESS AT THIS TIME. NO SOB NOTED. PATIENT'S BREATHING IS EVEN AND UNLABORED. PATIENT ON MECHANICAL VENT; SETTINGS PRESCRIBED; PT TOLERATED WELL. AMBU BAG AT BED SIDE ALARMS SET PER PROTOCOL AND AUDIBLE. VENT PLUGGED IN TO RED OUTLET. NO DISTRESS NOTED. PATIENT ON TELE MONITORING READING SINUS RHYTHM HR. SITE CLEAN DRY AND INTACT.NOTED IV SITE ON R UA PICC LINE; PATENT, INTACT AND FLUSHING WELL; NO S/S OF INFECTION OR INFILTRATION. ON TPN RUNNING AT 40 ML/HR.KNUTSON CATH IN PLACE, MODERATE URINE OUTPUT NOTED. PT NOTED WITH GT CONNECTED TO DRAINAGE BAG GREENISH/BROWNISH COLOR,,PSOAS DRAINAING BAG, RIGHT ABDOMEN CHOLECYSTECTOMY DRAINING BAG AND RECTAL TUBE. SAFETY MEASURES HAVE BEEN PROVIDED AND IMPLEMENTED. PATIENT BED ALARM IS ON. HEAD OF BED ELEVATED. BED IS LOCKED, IN LOWEST POSITION AND SIDE RAILS UP. CALL LIGHT WITHIN REACH OF THE PATIENT. APPLICABLE ISOLATION PRECAUTIONS IN PLACE. WILL CONTINUE TO MONITOR AND REASSESS FOR ANY CHANGES AND WILL CARRY OUT ANY ONGOING AND ACTIVE MD ORDER.
[2022-05-09 07:46] LABS: ALANINE AMINOTRANSFERASE < 6 U/L (12-78)
[2022-05-09 07:55] LABS: HDL CHOLESTEROL < 10 mg/dL (40-60)
--- NOTE | 2022-05-09 08:36 | NUR ---
RN NOTES: STARTED BLOOD TRANSFUSION, PT NT IN ANY DISTRESS, NO FEVER NOTES, VSS, WILL MONITOR, HELD TPN
--- NOTE | 2022-05-09 08:36 | NUR ---
RN NOTES STARTED 1 BAG OF PRBC ORDERED. INITIAL VITAL SIGNS TAKEN AND NOTED TO BE WNL. INFUSED PER PROTOCOL. WILL CONTINUE TO MONITOR AND ASSESS FOR ANY BLOOD TRANSFUSION REACTION AND ADDRESS ACCORDINGLY. ARMORING MACHINE OPERATOR WELL AWARE.
[2022-05-09] MEDS: MULTIVITAMINS,THERAGRAN 1 UDTAB TABLET GT SCH (09:00)
[2022-05-09] MEDS: METOPROLOL TARTRATE 25 MG TABLET GT SCH (09:00)
[2022-05-09] MEDS: PANTOPRAZOLE 40 MG VIAL IV SCH ×2 (09:01→20:40)
[2022-05-09] MEDS: DAKINS QUARTER STRENGTH (0.125%) 480 ML BOTTLE TOP SCH (09:02)
[2022-05-09] MEDS: METOCLOPRAMIDE HCL 10 MG/2 ML VIAL IV SCH ×3 (09:02→17:10)
--- NOTE | 2022-05-09 09:54 | NUR ---
RN NOTES" PT REMAIN IN BED ASLEEP BUT OPEN HIS EYES OCCASIONALLY. NOT IN ANY DISTRESS. CONTINUE BLOOD TRANSFUSION ORDERED, NO ANY ADVERSE REACTION NOTED
[2022-05-09] MEDS ORDERED: POTASSIUM CHLORIDE 20 MEQ POWDER PACKET GT SCH (10:00)
[2022-05-09] MEDS ORDERED: Magnesium 1GM/D5W 100ML PREMIX 100 ML IV SCH (11:00)
[2022-05-09] MEDS ORDERED: TPN BAG #2 IV SCH ×4 (11:00)
--- NOTE | 2022-05-09 11:27 | NUR ---
RN NOTES: BLOOD TRANSFUSION COMPLETED WITHOUT ANY REACTION, VSS, TPN RESUMED WILL CONTINUE TO MONITOR
--- NOTE | 2022-05-09 11:43 | NUR ---
rn notes: spoke to DR Alegria mg 1.8 shall i administer iv magnesium she said no, order discontinued
[2022-05-09] MEDS ORDERED: POTASSIUM CL. PREMIX PERIPHER. 50 ML IV SCH (13:00)
[2022-05-09] MEDS: POTASSIUM CL. PREMIX PERIPHER. 50 ML IV SCH ×6 (13:17→18:32)
[2022-05-09] MEDS ORDERED: ACETAMINOPHEN 325 MG TABLET PO ONE (14:00)
--- NOTE | 2022-05-09 14:00 | NUR ---
1400 RN notes: spoke to Dr medina pt received blood transfusion today for hemoglobin 6.5 with order not to give any more blood transfusion today , tylenol was not given
--- NOTE | 2022-05-09 14:17 | NUR ---
RN NOTES: SPOKE TO DR POMPA PT IS NPO INCLUDING MEDS HE HAS MEDICINE TO GIVE VIA GT SHE SAID TO DISCONTINUE THEM AND START METOPROLOL 5 MG EVERY 6 HOURS IV , ORDER NOTED AND CARRIED OUT
[2022-05-09] MEDS ORDERED: METOPROLOL TARTRATE INJ 5 MG/5 ML AMPUL IVP SCH (14:30)
[2022-05-09] MEDS: MICAFUNGIN SODIUM 100 MG in IV NS 0.9% 100 ML IV SCH (14:39)
[2022-05-09 15:43] LABS: D-DIMER 2.76 mg/L(FEU (0.17-0.50)
--- NOTE | 2022-05-09 16:00 | NUR ---
RN NOTES PATIENT REMAINED TO BE IN NO SIGNS OF ACUTE RESPIRATORY DISTRESS , VITAL SIGNS STABLE AT THIS TIME. REGULAR TURNING AND REPOSITIONING DONE, SUCTIONING DONE, WOUND CARE AND PM PATIENT CARE RENDERED WILL CONTINUE TO MONITOR AND REASSESS FOR ANY CHANGES THROUGHOUT THE SHIFT
--- NOTE | 2022-05-09 18:18 | NUR ---
RN NOTES: GT DRAINING BAG HAS 28ML , PSOAS DRAIN HAS 0 ML,RECTAL TUBE 50 ML,KNUTSON CATHETER 100 ML,CHOLECYSTOSTOMY TUBE 42 ML IN THE WHOLE SHIFT
--- NOTE | 2022-05-09 19:21 | NUR ---
CLINICAL TRIAL ASSISTANT CLOSING NOTE: PATIENT REMAINS IN ROOM IN NO SIGNS OF RESPIRATORY DISTRESS, PATIENT STILL ON MECH VENT; SETTINGS PRESCRIBED;TOLERATING WELL SATURATING 100% SP02. SAFETY MEASURES IMPLEMENTED, BED IN LOWEST POSITION, LOCKED, SIDE RAILS UP, CALL LIGHT WITHIN REACH. ALL NEEDS AND ORDERS ADDRESSED DURING THE SHIFT. RIGHT UPPER ARM PICC LINE MAINTAINED INTACT, SECURED AND FLUSHING WELL. ALL DUE MEDS GIVEN ORDERED & SCHEDULED ; PATIENT TOLERATED WELL. HYPOKALEMIA WAS TREATED WITH 60 MEQ KCL OVER 6 HOURS, TPN RUNNING AT 40 ML/HR TOLERATED WELL. PATIENT KEPT CLEAN AND COMFORTABLE WITHIN THE SHIFT. PATIENT ENDORSED TO INCOMING SHIFT RN WITH STABLE VITAL SIGN AND FOR CONTINUITY OF CARE.
--- NOTE | 2022-05-09 19:30 | NUR ---
PT ASLEEP BUT EASILY AWAKENS. BOTH EYES OPEN, NON VERBAL AND DOES NOT FOLLOW ANY COMMAND, NO SIGNS OF RESPIRATORY DISTRESS, PATIENT STILL ON MECH VENT; SETTINGS PRESCRIBED;TOLERATING WELL SATURATING 99% SP02.WITH KNUTSON CATH TO GRAVITY WITH YELLOW COLOR URINE SMALL AMT ALSO WITH FLEXSEAL RECTAL TUBE IN PLACE FLUSHED WELL , G TUBE DRAIN IN PLACE WITH YELLOW COLOR NOTED, RT CHOLECYSTOMY DRAIN WITH DARK TORRES COLOR DRAINAGE NOTED, NO DRAINAGE NOTED FROM LT PSOAS DRAIN, RT UPPER ARM PICC LINE IN PLACE, CONT ON TPN ORDERED, WITH LT MITTEN RESTRAIN IN PLACE ORDERED, UNABLE TO REMOVE STILL AT RISK TO REMOVE ALL LINES AND TUBES, SAFETY MEASURES IN PLACE. BED IN LOWEST AND LOCKED POSITION, HEAD OF BED SLIGHTLY ELEVATED, SIDE RAILS UP X2, CALL LIGHT WITHIN REACH, WILL CONTINUE PLAN OF CARE.
[2022-05-09 19:31] LABS: BAND % (MANUAL) 13 % (0.0-5.0); LYMPHOCYTES % (MANUAL) 6 % (16-48); MONOCYTES % (MANUAL) 2 % (0-11.0); NEUTROPHILS % (MANUAL) 79 (42-76)
[2022-05-09] MEDS: METOPROLOL TARTRATE INJ 5 MG/5 ML AMPUL IVP SCH (20:55)
--- NOTE | 2022-05-09 22:07 | NUR ---
DISCHARGED PT VIA GURNEY TO TRANSFER TO [facility]. REPORT GIVEN TO PAOLA. PT NOT IN DISTRESS. NO SOB. IV ACCESS KEPT IN PLACE REQUESTED BY FAN MEDINA. TELE MONITOR REMOVED. REVIEWED DISCHARGE INSTRUCTION WITH PT. EXIT CARE PROVIDED WITH ALL FORMS. BELONGINS CHECKED. V/S STABLE. Addendum: 05/09/22 at 2215 by MARIANA MCBRIDE RN FOR DIFFERENT PT. PLEASE DISREGARD NOTE.
[2022-05-10] VITALS: BP 110/60
[2022-05-10] MEDS: BLOOD SUGAR DIAGNOSTIC 1 EACH STRIP IN SCH ×4 (00:39→17:45)
[2022-05-10] MEDS: MEROPENEM 500 MG in IV NS 0.9% 50 ML IV SCH ×2 (02:16→14:41)
[2022-05-10] MEDS: METOPROLOL TARTRATE INJ 5 MG/5 ML AMPUL IVP SCH ×4 (02:49→20:28)
[2022-05-10] MEDS ORDERED: TPN BAG #3 IV SCH ×2 (03:00)
[2022-05-10 04:00] VITALS: BP 107/70
[2022-05-10] MEDS: INSULIN REGULAR, HUMAN 100 UNIT/ML 3 ML VIAL SQ PRN (05:02)
[2022-05-10 06:00] LABS: BASOPHILS # (AUTO) 0.1 K/uL (0.0-0.2); BASOPHILS % (AUTO) 0.5 % (0.0-2.0); EOSINOPHILS % (AUTO) 4.8 % (0.0-6.0); HEMATOCRIT 28 % (39-51); HEMOGLOBIN 9.3 g/dL (13.5-17.5); LYMPHOCYTES % (AUTO) 8.1 % (20.0-44.0); MEAN CORPUSCULAR HGB CONC 34 g/dl (31.0-36.0); MEAN CORPUSCULAR VOLUME 90 fL (80-96); MONOCYTES % (AUTO) 8.2 % (2.0-12.0); NEUTROPHILS # (AUTO) 9.9 K/uL (1.8-8.9); NEUTROPHILS % (AUTO) 78.4 % (43.0-81.0); PLATELET COUNT (AUTO) 73 K/uL (150-450); RED BLOOD CELL COUNT(AUTO) 3.06 MIL/uL (4.5-6.0); WHITE BLOOD COUNT (AUTO) 12.6 K/uL (4.3-11.0)
[2022-05-10 06:14] LABS: CALCIUM, SERUM 8.2 mg/dL (8.5-10.1); CREATININE 4.9 mg/dL (0.6-1.3); MAGNESIUM 1.7 mg/dL (1.8-2.4); PHOSPHORUS 2.5 mg/dL (2.5-4.9)
--- NOTE | 2022-05-10 07:30 | NUR ---
RN NOTE RECEIVED PATIENT IN BED RESTING OBTUNDED OPEN EYES ON MECHANICAL VENT PRESCRIBED,IV SITE IS ON RIGHT UPPER ARM PICC LINE INTACT PATENT,KNUTSON CATH IN PLACE,RECTAL TUBE IN PLACE RIGHT CHOLECYSTOMY TUBE IN PLACE,LEFT PSOAS DRAIN IN PLACE,ON TPN FEEDING 80.88 CC/HR,SAFETY MEASURE IMPLEMENT BED IN LOW POSITION AND AND LOCKED,HEAD OF THE BED ELEVATED ALL THE TIME,LEFT WRIST RESTRAIN MITTEN IN PLACE WILL CHECK EVERY 15 MINS FOR SKIN BREAKDOWN AND CIRCULATION,CONTINUE TO MONITOR.
--- NOTE | 2022-05-10 07:39 | NUR ---
PT ASLEEP BUT EASILY AWAKENS. BOTH EYES OPEN, NON VERBAL AND DOES NOT FOLLOW ANY COMMAND, NO SIGNS OF RESPIRATORY DISTRESS, PATIENT STILL ON MECH VENT; SETTINGS PRESCRIBED;TOLERATING WELL SATURATING 99% SP02.WITH KNUTSON CATH TO GRAVITY WITH YELLOW COLOR URINE SMALL AMT ALSO WITH FLEXSEAL RECTAL TUBE IN PLACE FLUSHED WELL , G TUBE DRAIN IN PLACE WITH YELLOW COLOR NOTED, RT CHOLECYSTOMY DRAIN WITH DARK TORRES COLOR DRAINAGE NOTED, NO DRAINAGE NOTED FROM LT PSOAS DRAIN, RT UPPER ARM PICC LINE IN PLACE, CONT ON TPN ORDERED, WITH LT MITTEN RESTRAIN IN PLACE ORDERED, UNABLE TO REMOVE STILL AT RISK TO REMOVE ALL LINES AND TUBES, SAFETY MEASURES IN PLACE. BED IN LOWEST AND LOCKED POSITION, HEAD OF BED SLIGHTLY ELEVATED, SIDE RAILS UP X2, CALL LIGHT WITHIN REACH, WILL ENDORSE TO NEXT NURSE ON DUTY FOR CONTINUITY OF CARE.
[2022-05-10 08:00] VITALS: BP 138/72
[2022-05-10] MEDS: PANTOPRAZOLE 40 MG VIAL IV SCH ×2 (08:04→20:27)
[2022-05-10] MEDS: METOCLOPRAMIDE HCL 10 MG/2 ML VIAL IV SCH ×3 (08:05→17:10)
[2022-05-10] MEDS ORDERED: Magnesium 1GM/D5W 100ML PREMIX 100 ML IV SCH ×2 (08:30→22:00)
[2022-05-10] MEDS: DAKINS QUARTER STRENGTH (0.125%) 480 ML BOTTLE TOP SCH (09:13)
[2022-05-10] MEDS: Magnesium 1GM/D5W 100ML PREMIX 100 ML IV SCH ×2 (10:05→11:17)
[2022-05-10 11:59] LABS: BAND % (MANUAL) 22 % (0.0-5.0); EOSINOPHILS % (MANUAL) 4 % (0-4); LYMPHOCYTES % (MANUAL) 5 % (16-48); MONOCYTES % (MANUAL) 6 % (0-11.0); NEUTROPHILS % (MANUAL) 63 (42-76)
[2022-05-10 12:00] VITALS: BP 139/75
[2022-05-10] MEDS ORDERED: AMIKACIN 250 MG in IV D5W 100 ML IV SCH (13:00)
[2022-05-10] MEDS: MICAFUNGIN SODIUM 100 MG in IV NS 0.9% 100 ML IV SCH (14:42)
[2022-05-10] MEDS ORDERED: TPN BAG #4 IV SCH ×4 (15:00)
[2022-05-10 16:00] VITALS: BP 132/86
--- NOTE | 2022-05-10 19:19 | NUR ---
RN NOTE PATENT REMAINS OBTUNDED ON MECHANICAL VENT NOT ACUTE DISTRESS NOTED,ON TPN,ALL IV MEDS GIVEN MD ORDERED KEPT CLEAN AND DRY ALL THE TIME,REPOSITIONED AND TURNED EVERY 2 HOURS BY STAFF,KEPT HEAD OF THE BED ELEVATED ALL THE TIME,ALL NEEDS MET ENDORSE NEXT COMING SHIFT FOR CONTINUATION OF CARE
--- NOTE | 2022-05-10 19:30 | NUR ---
PT RECEIVED AWAKE. BOTH EYES OPEN, NON VERBAL AND DOES NOT FOLLOW ANY COMMAND, NO SIGNS OF RESPIRATORY DISTRESS, PATIENT STILL ON MECH VENT; SETTINGS PRESCRIBED; TOLERATING WELL SATURATING 99% SP02.WITH KNUTSON CATH TO GRAVITY WITH YELLOW COLOR URINE SMALL AMT ALSO WITH FLEXSEAL RECTAL TUBE IN PLACE, G TUBE DRAIN IN PLACE, RT CHOLECYSTOMY DRAIN WITH DARK TORRES COLOR DRAINAGE NOTED, LT PSOAS DRAIN IN PLACE, RT UPPER ARM PICC LINE IN PLACE, CONT ON TPN ORDERED, WITH LT MITTEN RESTRAIN IN PLACE ORDERED, UNABLE TO REMOVE STILL AT RISK TO REMOVE ALL LINES AND TUBES, SAFETY MEASURES IN PLACE. BED IN LOWEST AND LOCKED POSITION, HEAD OF BED SLIGHTLY ELEVATED, SIDE RAILS UP X2, CALL LIGHT WITHIN REACH, WILL CONTINUE PLAN OF CARE.
[2022-05-10 20:00] VITALS: BP 130/86
[2022-05-11] VITALS: BP 110/74
[2022-05-11] MEDS: BLOOD SUGAR DIAGNOSTIC 1 EACH STRIP IN SCH ×4 (00:21→18:01)
[2022-05-11] MEDS: INSULIN REGULAR, HUMAN 100 UNIT/ML 3 ML VIAL SQ PRN ×2 (00:22→05:36)
[2022-05-11] MEDS: IV NS 0.9% 250 ML IV PRN (01:07)
[2022-05-11] MEDS: MEROPENEM 500 MG in IV NS 0.9% 50 ML IV SCH ×2 (01:57→18:19)
[2022-05-11] MEDS ORDERED: TPN BAG #5 IV SCH ×2 (03:00)
[2022-05-11] MEDS: METOPROLOL TARTRATE INJ 5 MG/5 ML AMPUL IVP SCH ×4 (03:49→21:16)
[2022-05-11 04:00] VITALS: BP 121/76
[2022-05-11 06:15] LABS: CALCIUM, SERUM 7.8 mg/dL (8.5-10.1); CREATININE 4.6 mg/dL (0.6-1.3); MAGNESIUM 1.9 mg/dL (1.8-2.4); PHOSPHORUS 1.3 mg/dL (2.5-4.9); POTASSIUM 3.4 mmol/L (3.5-5.1)
--- NOTE | 2022-05-11 06:50 | NUR ---
PT ASLEEP BUT EASILY AWAKENS, BOTH EYES OPEN, NON VERBAL AND DOES NOT FOLLOW ANY COMMAND, NO SIGNS OF RESPIRATORY DISTRESS, PATIENT STILL ON MECH VENT; SETTINGS PRESCRIBED; TOLERATING WELL SATURATING 99% SP02.WITH KNUTSON CATH TO GRAVITY WITH YELLOW COLOR URINE SMALL AMT ALSO WITH FLEXSEAL RECTAL TUBE IN PLACE, G TUBE DRAIN IN PLACE, RT CHOLECYSTOMY DRAIN WITH DARK TORRES COLOR DRAINAGE NOTED, LT PSOAS DRAIN IN PLACE, RT UPPER ARM PICC LINE IN PLACE, CONT ON TPN ORDERED, WITH LT MITTEN RESTRAIN IN PLACE ORDERED, UNABLE TO REMOVE STILL AT RISK TO REMOVE ALL LINES AND TUBES, DUE MEDS GIVEN ORDERED. WOUND CARE PROVIDED. SAFETY MEASURES MAINTAINED. BED IN LOWEST AND LOCKED POSITION, HEAD OF BED SLIGHTLY ELEVATED, SIDE RAILS UP X2, CALL LIGHT WITHIN REACH, WILL ENDORSE TO NEXT NURSE ON DUTY FOR CONTINUITY OF CARE.
--- NOTE | 2022-05-11 07:37 | NUR ---
RN OPENING NOTE PT ASLEEP BUT EASILY AWAKENS, BOTH EYES OPEN, NON VERBAL AND DOES NOT FOLLOW ANY COMMANDS. NO SIGNS OF RESPIRATORY DISTRESS, PATIENT STILL ON MECH VENT; SETTINGS PRESCRIBED; TOLERATING WELL SATURATING 99% SP02.WITH KNUTSON CATH TO GRAVITY WITH YELLOW COLOR URINE. FLEXSEAL RECTAL TUBE IN PLACE. G TUBE DRAIN IN PLACE, RT CHOLECYSTOMY DRAIN WITH DARK TORRES COLOR DRAINAGE NOTED. LT PSOAS DRAIN IN PLACE. RT UPPER ARM PICC LINE IN PLACE, CONT ON TPN ORDERED, WITH LT MITTEN RESTRAIN IN PLACE ORDERED, CIRCULATION WNL. SAFETY MEASURES MAINTAINED. BED IN LOWEST AND LOCKED POSITION, HEAD OF BED ELEVATED, SIDE RAILS UP X2, CALL LIGHT WITHIN REACH, WILL CONTINUE PLAN OF CARE AND ANTICIPATE NEEDS.
[2022-05-11] MEDS: DAKINS QUARTER STRENGTH (0.125%) 480 ML BOTTLE TOP SCH (08:18)
[2022-05-11] MEDS: PANTOPRAZOLE 40 MG VIAL IV SCH ×2 (08:26→21:15)
[2022-05-11] MEDS: METOCLOPRAMIDE HCL 10 MG/2 ML VIAL IV SCH ×3 (08:27→16:01)
[2022-05-11 09:40] VITALS: BP 120/70
[2022-05-11] MEDS ORDERED: AMIKACIN 250 MG in IV D5W 100 ML IV PRN (11:30)
[2022-05-11 12:00] VITALS: BP 129/77
[2022-05-11] MEDS: Sodium Phosphate 15 MMOL in IV NS 0.9% 245 ML IV SCH ×2 (13:49→18:53)
[2022-05-11] MEDS: MICAFUNGIN SODIUM 100 MG in IV NS 0.9% 100 ML IV SCH (14:17)
[2022-05-11] MEDS ORDERED: TPN BAG #6 IV SCH ×4 (15:00)
[2022-05-11 16:00] VITALS: BP 134/79
--- NOTE | 2022-05-11 18:56 | NUR ---
RN CLOSING NOTE PT ASLEEP BUT EASILY AWAKENS, BOTH EYES OPEN, NON VERBAL AND DOES NOT FOLLOW ANY COMMANDS. NO SIGNS OF RESPIRATORY DISTRESS, PATIENT STILL ON MECH VENT; SETTINGS PRESCRIBED; TOLERATING WELL SATURATING 99% SP02.WITH KNUTSON CATH TO GRAVITY WITH YELLOW COLOR URINE. FLEXSEAL RECTAL TUBE IN PLACE. G TUBE DRAIN IN PLACE, RT CHOLECYSTOMY DRAIN WITH DARK TORRES COLOR DRAINAGE NOTED. LT PSOAS DRAIN IN PLACE. RT UPPER ARM PICC LINE IN PLACE, CONT ON TPN ORDERED, WITH LT MITTEN RESTRAIN IN PLACE ORDERED, CIRCULATION WNL. SAFETY MEASURES MAINTAINED. BED IN LOWEST AND LOCKED POSITION, HEAD OF BED ELEVATED, SIDE RAILS UP X2, CALL LIGHT WITHIN REACH, WILL ENDORSE TO NIGHTSHIFT FOR CONTINUATION OF CARE.
[2022-05-11 20:00] VITALS: BP 114/69
--- NOTE | 2022-05-11 22:54 | NUR ---
INFRASTRUCTURE TECHNICIAN OPENING NOTE PT RECEIVED IN BED, OBTUNDED, NON-VERBAL, OPENS EYES. PT ON SHILEY #6, AC 24, TV 425, FIO2 40%, PEEP 5 WITH CURRENT O2SAT OF 100%; NO S/S OF RESP DISTRESS, NO SOB OR COUGH, NON-LABORED AND EQUAL BREATHING. PT ATTACHED TO EXTERNAL MONITOR, SR WITH HR OF 63. KNUTSON INTACT AND PATENT, DRAINING CLOUDY AND YELLOW URINE. FLEXISEAL INTACT AND PATENT, DRAINING STOOL THAT IS BROWN AND THIN IN CONSISTENCY. PT ALSO NOTED TO HAVE PSOAS DRAIN AND CHOLECYSTECTOMY THAT'S DRAINING FLUIDS BROWN IN COLOR. LEFT SOFT WRIST AND LEFT MITTEN IN PLACE WITH NO SIGNS OF IMPAIRED SKIN AND CIRCULATION; WILL PROVIDE PT WITH RELEASE OF RESTRAINTS AND HYGIENE. BED IN LOWEST POSITION, CALL LIGHT WITHIN REACH, SIDE RAILS UP X3. WILL CONTINUE TO MONITOR THROUGHOUT THE NIGHT.
--- NOTE | 2022-05-11 23:08 | NUR ---
RN NOTE UNABLE TO OBTAIN PO OR AXILLARY TEMPERATURE. RECTAL TEMPERATURE CHECKED WITH TEMP OF 92.1 F; ORDER PLACED FOR LIZ HUGGER; LIZ HUGGER APPLIED TO PT.
[2022-05-12] VITALS: BP 127/76
[2022-05-12] MEDS: BLOOD SUGAR DIAGNOSTIC 1 EACH STRIP IN SCH ×4 (00:17→18:44)
[2022-05-12] MEDS: MEROPENEM 500 MG in IV NS 0.9% 50 ML IV SCH ×2 (02:01→14:44)
[2022-05-12] MEDS ORDERED: TPN BAG #7 IV SCH ×2 (03:00)
--- NOTE | 2022-05-12 03:26 | NUR ---
RT pt received on mechanical vent. settings: AC 24 425 30% +5. vent plugged in to red outlet. ambu bag at bedside. spare trach at bedside. trach secure and patent. no sob, no resp distress. shift uneventful.
[2022-05-12 04:00] VITALS: BP 117/74
[2022-05-12] MEDS: METOPROLOL TARTRATE INJ 5 MG/5 ML AMPUL IVP SCH ×4 (04:37→21:49)
[2022-05-12 05:55] LABS: BASOPHILS # (AUTO) 0.1 K/uL (0.0-0.2); BASOPHILS % (AUTO) 0.4 % (0.0-2.0); EOSINOPHILS % (AUTO) 5.7 % (0.0-6.0); HEMATOCRIT 22 % (39-51); HEMOGLOBIN 7.2 g/dL (13.5-17.5); LYMPHOCYTES # (AUTO) 0.9 K/uL (0.8-4.8); LYMPHOCYTES % (AUTO) 6.3 % (20.0-44.0); MEAN CORPUSCULAR HGB CONC 33 g/dl (31.0-36.0); MEAN CORPUSCULAR VOLUME 91 fL (80-96); MONOCYTES # (AUTO) 1.2 K/uL (0.1-1.30); MONOCYTES % (AUTO) 7.9 % (2.0-12.0); NEUTROPHILS % (AUTO) 79.7 % (43.0-81.0); PLATELET COUNT (AUTO) 74 K/uL (150-450)
[2022-05-12 06:36] LABS: CREATININE 4.3 mg/dL (0.6-1.3); MAGNESIUM 1.7 mg/dL (1.8-2.4); PHOSPHORUS 4.1 mg/dL (2.5-4.9)
[2022-05-12 06:42] LABS: POTASSIUM 2.9 mmol/L (3.5-5.1)
[2022-05-12 06:43] LABS: D-DIMER 5.17 mg/L(FEU (0.17-0.50)
--- NOTE | 2022-05-12 07:10 | NUR ---
SPORTS TEACHER OPENING NOTES: RECEIVED PT IN BED RESTING COMFORTABLY. PATIENT IN NO S/SX OF ACUTE DISTRESS AT THIS TIME. NO SOB NOTED. PATIENT'S BREATHING IS EVEN AND UNLABORED. PATIENT ON MECHANICAL VENT; SETTINGS PRESCRIBED; PT TOLERATED WELL. AMBU BAG AT BED SIDE ALARMS SET PER PROTOCOL AND AUDIBLE. VENT PLUGGED IN TO RED OUTLET. NO DISTRESS NOTED. PATIENT ON TELE MONITORING READING SINUS RHYTHM HR. SITE CLEAN DRY AND INTACT.NOTED IV SITE ON R UA PICC LINE; PATENT, INTACT AND FLUSHING WELL; NO S/S OF INFECTION OR INFILTRATION. ON TPN RUNNING AT 79.1 ML/HR.KNUTSON CATH IN PLACE, MODERATE URINE OUTPUT NOTED. PT NOTED WITH GT CONNECTED TO DRAINAGE BAG GREENISH/BROWNISH COLOR,,PSOAS DRAINAING BAG, RIGHT ABDOMEN CHOLECYSTECTOMY DRAINING BAG AND RECTAL TUBE. SAFETY MEASURES HAVE BEEN PROVIDED AND IMPLEMENTED.pt has ashly hugger for hypothermia. PATIENT BED ALARM IS ON. HEAD OF BED ELEVATED. BED IS LOCKED, IN LOWEST POSITION AND SIDE RAILS UP. CALL LIGHT WITHIN REACH OF THE PATIENT. APPLICABLE ISOLATION PRECAUTIONS IN PLACE. WILL CONTINUE TO MONITOR AND REASSESS FOR ANY CHANGES AND WILL CARRY OUT ANY ONGOING AND ACTIVE MD ORDER.
--- NOTE | 2022-05-12 07:26 | NUR ---
DINNER COOK CLOSING NOTE PT REMAINS IN BED, OBTUNDED, NON-VERBAL, OPENS EYES; NO SIGNIFICANT CHANGES TO NEURO STATUS. PT ON SHILEY #6, AC 24, TV 425, FIO2 40%, PEEP 5 TOLERATING VENT SETTINGS WELL;; WITH O2SAT RANGED FROM 97%- 100%; NO S/S OF RESP DISTRESS, NO SOB OR COUGH, NON-LABORED AND EQUAL BREATHING. PT ATTACHED TO EXTERNAL MONITOR, SR WITH HR OF 63 WITH EPISODE OF SB EARLIER IN SHIFT BUT HAS RETURNED TO NSR. KNUTSON INTACT AND PATENT, DRAINING CLOUDY AND YELLOW URINE. FLEXISEAL INTACT AND PATENT, DRAINING STOOL THAT IS BROWN AND THIN IN CONSISTENCY. PT ALSO NOTED TO HAVE PSOAS DRAIN AND CHOLECYSTOSTOMY THAT'S DRAINING FLUIDS BROWN IN COLOR; PSOAS DRAIN HAD 0 ML OUTPUT. LEFT MITTEN IN PLACE WITH NO SIGNS OF IMPAIRED SKIN AND CIRCULATION; PROVIDED PT WITH RELEASE OF RESTRAINTS AND HYGIENE. ALL DUE MEDS ADMINISTERED DURING THE NIGHT. BED IN LOWEST POSITION, CALL LIGHT WITHIN REACH, SIDE RAILS UP X3. WILL ENDORSE TO DAYSHIFT NURSE TO CONTINUE CARE.
[2022-05-12 08:00] VITALS: BP 130/79
[2022-05-12] MEDS: PANTOPRAZOLE 40 MG VIAL IV SCH ×2 (08:51→21:48)
[2022-05-12] MEDS: METOCLOPRAMIDE HCL 10 MG/2 ML VIAL IV SCH ×3 (08:51→16:21)
[2022-05-12] MEDS: DAKINS QUARTER STRENGTH (0.125%) 480 ML BOTTLE TOP SCH (09:35)
[2022-05-12] MEDS ORDERED: EPOETIN ALFA (20,000 UNIT) 20,000 UNIT/ML VIAL IV ONE (10:00)
[2022-05-12] MEDS ORDERED: Magnesium 1GM/D5W 100ML PREMIX 100 ML IV SCH (10:00)
[2022-05-12] MEDS: POTASSIUM CL. PREMIX PERIPHER. 50 ML IV SCH ×6 (10:32→15:49)
[2022-05-12 12:00] VITALS: BP 101/66
[2022-05-12 12:24] LABS: BAND % (MANUAL) 23 % (0.0-5.0); NEUTROPHILS % (MANUAL) 64 (42-76)
[2022-05-12 12:25] LABS: BASOPHILS % (MANUAL) 0 % (0.0-2.0); EOSINOPHILS % (MANUAL) 6 % (0-4); LYMPHOCYTES % (MANUAL) 3 % (16-48); MONOCYTES % (MANUAL) 4 % (0-11.0)
--- NOTE | 2022-05-12 13:53 | NUR ---
RN NOTES: FIBRINOPGEN 372, NO TRANSFUSION NEEDED AT THIS TIME, PT CONTINUE WITH WARM BLANKET DUE TO HYPOTHERMIA
--- NOTE | 2022-05-12 14:30 | NUR ---
RN NOTES: CALLED RT PT IS HYPERVENTILATED, SUCTION DONE BY RT, O2 SAT 96%
[2022-05-12] MEDS: MICAFUNGIN SODIUM 100 MG in IV NS 0.9% 100 ML IV SCH (14:44)
[2022-05-12] MEDS ORDERED: TPN BAG #8 IV SCH ×4 (15:00)
--- NOTE | 2022-05-12 15:30 | NUR ---
RN NOTES: SEEN BY CRYSTAL WOUND CARE CONSULT WEB RETAILER DUE TO MULTIPLE OPEN ABDOMEN AND RIGHT THIGH OPEN BLISTER WHO SAID TO DO TREATMENT WITH THERAHONEY, APPLY OIL EMULSION AND COVER WITH ABDOMINAL PAD, TX DONE
[2022-05-12 16:00] VITALS: BP 95/76
[2022-05-12 20:00] VITALS: BP 107/61
[2022-05-12] MEDS: THERAHONEY GEL 1.5 OZ TUBE TP SCH (21:49)
--- NOTE | 2022-05-12 23:30 | NUR ---
VIDEO GAME TECHNICIAN OPENING NOTE PT RECEIVED IN BED, OBTUNDED, NON-VERBAL, OPENS EYES. PT ON SHILEY #6, AC 24, TV 425, FIO2 40%, PEEP 5 WITH CURRENT O2SAT OF 94%; NO S/S OF RESP DISTRESS, NO SOB OR COUGH, NON-LABORED AND EQUAL BREATHING. PT ATTACHED TO EXTERNAL MONITOR, ST WITH HR OF 107. KNUTSON INTACT AND PATENT, DRAINING CLOUDY AND YELLOW URINE. FLEXISEAL INTACT AND PATENT, DRAINING STOOL THAT IS BROWN AND THIN IN CONSISTENCY. PT ALSO NOTED TO HAVE PSOAS DRAIN AND CHOLECYSTECTOMY THAT'S DRAINING FLUIDS BROWN IN COLOR. LEFT SOFT WRIST AND LEFT MITTEN IN PLACE WITH NO SIGNS OF IMPAIRED SKIN AND CIRCULATION; WILL PROVIDE PT WITH RELEASE OF RESTRAINTS AND HYGIENE. BED IN LOWEST POSITION, CALL LIGHT WITHIN REACH, SIDE RAILS UP X3. WILL CONTINUE TO MONITOR THROUGHOUT THE NIGHT.
[2022-05-13] VITALS: BP 116/78
[2022-05-13] MEDS: BLOOD SUGAR DIAGNOSTIC 1 EACH STRIP IN SCH ×5 (00:25→23:51)
[2022-05-13] MEDS: MEROPENEM 500 MG in IV NS 0.9% 50 ML IV SCH ×2 (02:46→13:42)
[2022-05-13] MEDS ORDERED: TPN BAG #9 IV SCH ×2 (03:00)
[2022-05-13 04:00] VITALS: BP 113/80
[2022-05-13] MEDS: METOPROLOL TARTRATE INJ 5 MG/5 ML AMPUL IVP SCH ×4 (04:49→21:00)
[2022-05-13 05:55] LABS: BASOPHILS % (AUTO) 0.1 % (0.0-2.0); EOSINOPHILS % (AUTO) 4.5 % (0.0-6.0); HEMATOCRIT 31 % (39-51); LYMPHOCYTES % (AUTO) 9.1 % (20.0-44.0); MEAN CORPUSCULAR HGB CONC 33 g/dl (31.0-36.0); MEAN CORPUSCULAR VOLUME 91 fL (80-96); MONOCYTES # (AUTO) 1.1 K/uL (0.1-1.30); MONOCYTES % (AUTO) 9.8 % (2.0-12.0); NEUTROPHILS # (AUTO) 8.6 K/uL (1.8-8.9); NEUTROPHILS % (AUTO) 76.5 % (43.0-81.0); PLATELET COUNT (AUTO) 69 K/uL (150-450); RED BLOOD CELL COUNT(AUTO) 3.36 MIL/uL (4.5-6.0); WHITE BLOOD COUNT (AUTO) 11.2 K/uL (4.3-11.0)
--- NOTE | 2022-05-13 07:15 | NUR ---
REWORK OPERATOR OPENING NOTES: RECEIVED PT IN BED, NON VERBAL, ASLEEP EASILY AWAKE BY STIMULI. [facility] WITH CURRENT SETTING OF SHILEY #6, AC 24, TV 425, FIO2 40%, PEEP 5 WITH CURRENT O2SAT OF 94%; NO SOB OR CARDIAC DSITRESS NOTED.PT ON EXTERNAL COMPUTER SYSTEMS TECHNICIAN, ST WITH HR OF 97. KNUTSON INTACT AND PATENT, DRAINING CLOUDY AND YELLOW URINE. WITH COLOSTOMY INTACT AND PATENT, DRAINING STOOL THAT IS BROWN AND THIN IN CONSISTENCY. PT ALSO NOTED TO HAVE PSOAS DRAIN AND CHOLECYSTECTOMY THAT'S DRAINING FLUIDS BROWN IN COLOR. LEFT SOFT WRIST AND LEFT MITTEN IN PLACE WITH NO SIGNS OF IMPAIRED SKIN AND CIRCULATION. SAFETY PRECAUTIONS MAINTAINED: BED IN LOCKED AND LOWEST POSITION, CALL LIGHT WITHIN REACH, SIDE RAILS UP X3. WILL CONTINUE TO MONITOR . KEPT RESTED AND COMFORTABLE.
[2022-05-13] MEDS: PANTOPRAZOLE 40 MG VIAL IV SCH ×2 (07:27→20:15)
[2022-05-13 08:00] VITALS: BP 136/89
[2022-05-13 08:16] LABS: CALCIUM, SERUM 8.3 mg/dL (8.5-10.1); CREATININE 3.9 mg/dL (0.6-1.3); MAGNESIUM 1.9 mg/dL (1.8-2.4); PHOSPHORUS 2.6 mg/dL (2.5-4.9); POTASSIUM 3.3 mmol/L (3.5-5.1)
[2022-05-13 09:41] LABS: BAND % (MANUAL) 4 % (0.0-5.0); EOSINOPHILS % (MANUAL) 4 % (0-4); LYMPHOCYTES % (MANUAL) 8 % (16-48); MONOCYTES % (MANUAL) 14 % (0-11.0); NEUTROPHILS % (MANUAL) 70 (42-76)
[2022-05-13] MEDS: METOCLOPRAMIDE HCL 10 MG/2 ML VIAL IV SCH ×3 (09:45→16:23)
[2022-05-13] MEDS: DAKINS QUARTER STRENGTH (0.125%) 480 ML BOTTLE TOP SCH (09:46)
[2022-05-13] MEDS: THERAHONEY GEL 1.5 OZ TUBE TP SCH (09:47)
[2022-05-13] MEDS ORDERED: POTASSIUM CL. PREMIX PERIPHER. 50 ML IV SCH (11:30)
[2022-05-13 12:00] VITALS: BP 154/93
[2022-05-13] MEDS ORDERED: Sodium Phosphate 15 MMOL in IV NS 0.9% 245 ML IV SCH (12:00)
[2022-05-13] MEDS: MICAFUNGIN SODIUM 100 MG in IV NS 0.9% 100 ML IV SCH (13:42)
[2022-05-13] MEDS ORDERED: TPN BAG #10 IV SCH ×4 (15:00)
--- NOTE | 2022-05-13 15:00 | NUR ---
RN NOTES: TPN SETTING @80 ML/HR.
[2022-05-13 16:00] VITALS: BP 140/85
[2022-05-13] MEDS: INSULIN REGULAR, HUMAN 100 UNIT/ML 3 ML VIAL SQ PRN (17:40)
--- NOTE | 2022-05-13 18:00 | NUR ---
RN NOTES: WOUND CARE TREATMENT DONE, SUCTIONED PT. DRAINED ALL THE TUBES/CATHETER.
--- NOTE | 2022-05-13 18:57 | NUR ---
WHEAT COMBINE DRIVER CLOSING NOTES: PT IN BED, NON VERBAL, ASLEEP EASILY AWAKE BY STIMULI. [facility] WITH CURRENT SETTING OF SHILEY #6, AC 24, TV 425, FIO2 40%, PEEP 5 WITH CURRENT O2SAT OF 94%; NO SOB OR CARDIAC DISTRESS NOTED.PT ON EXTERNAL DRIVER EDUCATION ROAD INSTRUCTOR, ST WITH HR OF 78BPM. KNUTSON INTACT AND PATENT, DRAINING CLEAR AND YELLOW URINE. WITH COLOSTOMY INTACT AND PATENT, DRAINING STOOL THAT IS BROWN AND THIN IN CONSISTENCY. PT ALSO NOTED TO HAVE PSOAS DRAIN AND CHOLECYSTECTOMY THAT'S DRAINING FLUIDS BROWN IN COLOR. LEFT SOFT WRIST AND LEFT MITTEN IN PLACE WITH NO SIGNS OF IMPAIRED SKIN AND CIRCULATION. SAFETY PRECAUTIONS MAINTAINED: BED IN LOCKED AND LOWEST POSITION, CALL LIGHT WITHIN REACH, SIDE RAILS UP X3. WILL CONTINUE TO MONITOR . KEPT RESTED AND COMFORTABLE. ENDORSED TO NOC SHIFT FOR HAMILTON.
--- NOTE | 2022-05-13 19:45 | NUR ---
DOUGH CATCHER OPENING NOTE RECEIVED PT IN BED, OBTUNDED, NON-VERBAL, OPENS EYES. PT ON SHILEY #6, AC 24, TV 425, FIO2 40%, PEEP 5 WITH CURRENT O2SAT OF 94%; NO S/S OF RESP DISTRESS, NO SOB OR COUGH, NON-LABORED AND EQUAL BREATHING. PT ATTACHED TO EXTERNAL MONITOR, SR WITH HR OF 78. KNUTSON INTACT AND PATENT, DRAINING CLOUDY AND YELLOW URINE. FLEXISEAL INTACT AND PATENT, DRAINING STOOL THAT IS BROWN AND THIN IN CONSISTENCY. PT ALSO NOTED TO HAVE PSOAS DRAIN AND CHOLECYSTECTOMY THAT'S DRAINING FLUIDS BROWN IN COLOR. LEFT SOFT WRIST WITH MITTEN IN PLACE WITH NO SIGNS OF IMPAIRED SKIN AND CIRCULATION; WILL PROVIDE PT WITH RELEASE OF RESTRAINTS AND HYGIENE. BED IN LOWEST POSITION, CALL LIGHT WITHIN REACH, SIDE RAILS UP X3. WILL CONTINUE TO MONITOR THROUGHOUT THE NIGHT.
[2022-05-13 20:00] VITALS: BP 59/23
--- NOTE | 2022-05-13 20:02 | NUR ---
RN NOTE NOTED BP LOW AT 59/28 HR AT 72. INFORMED CAR RESTORER ADRI, SHE THEN ORDERED NS 1000 BOLUS AND SOLU-CORTEF 10 MG IV ONCE, ORDER TAKEN AND CARRIED OUT. WILL CONT TO MONITOR.
[2022-05-13] MEDS ORDERED: HYDROCORTISONE SOD SUCCINATE 100 MG/2 ML VIAL IV ONE (20:30)
[2022-05-13] MEDS ORDERED: IV NS 0.9% 1,000 ML IV ONE (20:30)
--- NOTE | 2022-05-13 21:30 | NUR ---
RN NOTE RECHECKED PT BP AT 149/88 HR AT 77, SR ON THE TELE MONITOR. WILL CONT TO MONITOR PT.
--- NOTE | 2022-05-13 23:52 | NUR ---
RN NOTE BS CHECKED AT 101 MG/DL, NO COVERAGE GIVEN PER SLIDING SCALE.
[2022-05-14] VITALS: BP 149/65
[2022-05-14] MEDS: MEROPENEM 500 MG in IV NS 0.9% 50 ML IV SCH ×2 (02:30→13:36)
[2022-05-14] MEDS: METOPROLOL TARTRATE INJ 5 MG/5 ML AMPUL IVP SCH ×4 (02:43→20:07)
[2022-05-14] MEDS ORDERED: TPN BAG #11 IV SCH ×2 (03:00)
[2022-05-14 04:00] VITALS: BP 142/65
[2022-05-14] MEDS: INSULIN REGULAR, HUMAN 100 UNIT/ML 3 ML VIAL SQ PRN ×4 (06:30→23:56)
[2022-05-14] MEDS: BLOOD SUGAR DIAGNOSTIC 1 EACH STRIP IN SCH ×4 (06:31→23:55)
--- NOTE | 2022-05-14 07:10 | NUR ---
HARNESS AND BAG INSPECTOR OPENING NOTES: RECEIVED PT IN BED RESTING COMFORTABLY. PATIENT IN NO S/SX OF ACUTE DISTRESS AT THIS TIME. NO SOB NOTED. PATIENT'S BREATHING IS EVEN AND UNLABORED. PATIENT ON MECHANICAL VENT; SETTINGS PRESCRIBED; PT TOLERATED WELL. AMBU BAG AT BED SIDE ALARMS SET PER PROTOCOL AND AUDIBLE. VENT PLUGGED IN TO RED OUTLET. NO DISTRESS NOTED. PATIENT ON TELE MONITORING READING SINUS RHYTHM .NOTED IV SITE ON R UA PICC LINE; PATENT, INTACT AND FLUSHING WELL; NO S/S OF INFECTION OR INFILTRATION. ON TPN RUNNING AT 79.1 ML/HR.KNUTSON CATH IN PLACE, MODERATE URINE OUTPUT NOTED. PT NOTED WITH GT CONNECTED TO DRAINAGE BAG GREENISH/BROWNISH COLOR,,PSOAS DRAINING BAG, RIGHT ABDOMEN CHOLECYSTECTOMY DRAINING BAG AND RECTAL TUBE. SAFETY MEASURES HAVE BEEN PROVIDED AND IMPLEMENTED.pt has ashly hugger for hypothermia. PATIENT BED ALARM IS ON. HEAD OF BED ELEVATED. BED IS LOCKED, IN LOWEST POSITION AND SIDE RAILS UP. CALL LIGHT WITHIN REACH OF THE PATIENT. APPLICABLE ISOLATION PRECAUTIONS IN PLACE. WILL CONTINUE TO MONITOR AND REASSESS FOR ANY CHANGES AND WILL CARRY OUT ANY ONGOING AND ACTIVE MD ORDER.
--- NOTE | 2022-05-14 07:33 | NUR ---
CHROME POLISHER CLOSING NOTES: PT IN BED, NON VERBAL, ASLEEP EASILY AWAKE BY STIMULI. [facility] WITH CURRENT SETTING OF SHILEY #6, AC 24, TV 425, FIO2 40%, PEEP 5 WITH CURRENT O2SAT OF 94%; NO SOB OR CARDIAC DISTRESS NOTED.PT ON EXTERNAL BOOTH USHER, ST WITH HR OF 80 BPM. KNUTSON INTACT AND PATENT, DRAINING CLEAR AND YELLOW URINE. WITH COLOSTOMY INTACT AND PATENT, DRAINING STOOL THAT IS BROWN AND THIN IN CONSISTENCY. PT ALSO NOTED TO HAVE PSOAS DRAIN AND CHOLECYSTECTOMY THAT'S DRAINING FLUIDS BROWN IN COLOR. LEFT SOFT WRIST AND LEFT MITTEN IN PLACE WITH NO SIGNS OF IMPAIRED SKIN AND CIRCULATION.ALL DUE MEDS GIVEN, KEPT DRY AND CLEAN, SAFETY PRECAUTIONS MAINTAINED: BED IN LOCKED AND LOWEST POSITION, CALL LIGHT WITHIN REACH, SIDE RAILS UP X3. WILL CONTINUE TO MONITOR . KEPT RESTED AND COMFORTABLE. WILL ENDORSE TO AM SHIFT NURSE FOR CONTINUITY OF CARE.
[2022-05-14] MEDS: METOCLOPRAMIDE HCL 10 MG/2 ML VIAL IV SCH ×3 (08:00→16:21)
[2022-05-14] MEDS: PANTOPRAZOLE 40 MG VIAL IV SCH ×2 (08:01→20:08)
[2022-05-14 08:12] VITALS: BP 149/92
[2022-05-14 08:18] LABS: CREATININE 3.5 mg/dL (0.6-1.3); MAGNESIUM 1.6 mg/dL (1.8-2.4); PHOSPHORUS 3.4 mg/dL (2.5-4.9)
[2022-05-14 08:43] LABS: POTASSIUM 2.6 mmol/L (3.5-5.1)
[2022-05-14] MEDS: DAKINS QUARTER STRENGTH (0.125%) 480 ML BOTTLE TOP SCH (08:51)
[2022-05-14] MEDS: THERAHONEY GEL 1.5 OZ TUBE TP SCH (08:52)
[2022-05-14 09:50] LABS: BASOPHILS % (AUTO) 0.2 % (0.0-2.0); EOSINOPHILS % (AUTO) 0.1 % (0.0-6.0); HEMATOCRIT 26 % (39-51); HEMOGLOBIN 8.3 g/dL (13.5-17.5); LYMPHOCYTES # (AUTO) 0.3 K/uL (0.8-4.8); LYMPHOCYTES % (AUTO) 3.4 % (20.0-44.0); MEAN CORPUSCULAR HGB CONC 32 g/dl (31.0-36.0); MEAN CORPUSCULAR VOLUME 95 fL (80-96); MONOCYTES # (AUTO) 0.1 K/uL (0.1-1.30); NEUTROPHILS # (AUTO) 8.1 K/uL (1.8-8.9); NEUTROPHILS % (AUTO) 95.3 % (43.0-81.0); PLATELET COUNT (AUTO) 66 K/uL (150-450); RED BLOOD CELL COUNT(AUTO) 2.74 MIL/uL (4.5-6.0); WHITE BLOOD COUNT (AUTO) 8.4 K/uL (4.3-11.0)
[2022-05-14 09:59] LABS: PREALBUMIN 15.7 MG/DL (18.0-35.7)
[2022-05-14] MEDS: POTASSIUM CL. PREMIX PERIPHER. 50 ML IV SCH ×2 (10:04→11:04)
[2022-05-14 10:43] LABS: BILIRUBIN,DIRECT 1.9 mg/dL (0.0-0.2); BILIRUBIN,TOTAL 2.6 mg/dL (0.2-1.0); TOTAL PROTEIN, SERUM 6.8 g/dL (6.4-8.2)
--- NOTE | 2022-05-14 11:20 | NUR ---
RN NOTES: LAB CALLED TO REPORT ALBUMIN 1.0 SPOKE TO AYRA SÁNCHEZ DOUBLE BASS PLAYER MADE AWARE WITH NO NEW ORDER
[2022-05-14 12:00] VITALS: BP 159/72
[2022-05-14] MEDS: Magnesium 1GM/D5W 100ML PREMIX 100 ML IV SCH ×2 (13:48→14:54)
[2022-05-14] MEDS: MICAFUNGIN SODIUM 100 MG in IV NS 0.9% 100 ML IV SCH (14:25)
[2022-05-14] MEDS ORDERED: TPN BAG #12 IV SCH ×4 (15:00)
[2022-05-14 16:00] VITALS: BP 146/90
[2022-05-14 18:46] LABS: BAND % (MANUAL) 3 % (0.0-5.0); LYMPHOCYTES % (MANUAL) 5 % (16-48); MONOCYTES % (MANUAL) 1 % (0-11.0); NEUTROPHILS % (MANUAL) 91 (42-76)
--- NOTE | 2022-05-14 19:10 | NUR ---
BILINGUAL INSIDE SALES REPRESENTATIVE CLOSING NOTE: PATIENT REMAINS IN ROOM IN NO SIGNS OF RESPIRATORY DISTRESS, PATIENT STILL ON MECH VENT; SETTINGS PRESCRIBED;TOLERATING WELL SATURATING 100% SP02. SAFETY MEASURES IMPLEMENTED, BED IN LOWEST POSITION, LOCKED, SIDE RAILS UP, CALL LIGHT WITHIN REACH. ALL NEEDS AND ORDERS ADDRESSED DURING THE SHIFT. RIGHT UPPER ARM PICC LINE MAINTAINED INTACT, SECURED AND FLUSHING WELL. ALL DUE MEDS GIVEN ORDERED & SCHEDULED ; PATIENT TOLERATED WELL. HYPOKALEMIA WAS TREATED WITH 60 MEQ KCL OVER 6 HOURS, TPN RUNNING AT 80 ML/HR TOLERATED WELL. PATIENT KEPT CLEAN AND COMFORTABLE WITHIN THE SHIFT. PATIENT ENDORSED TO INCOMING SHIFT RN WITH STABLE VITAL SIGN AND FOR CONTINUITY OF CARE.
--- NOTE | 2022-05-14 19:30 | NUR ---
SALESPERSON STEREO EQUIPMENT OPENING NOTE RECEIVED REPORT FROM ADAM CRAFT FOR HAMILTON. PT IN BED, AWAKE, RESTING COMFORTABLY. ON MECHANICAL VENT; SETTINGS PRESCRIBED; PT TOLERATING WELL. O2 SAT AT 100%. NO S/SX OF ACUTE RESPI DISTRESS NOTED AT THIS TIME. NO SOB NOTED. PATIENT'S BREATHING IS EVEN AND UNLABORED. ON TELE MONITORING READING SINUS RHYTHM. IV SITE ON HILDA PICC LINE; PATENT, INTACT AND FLUSHING WELL; NO S/SX OF INFECTION OR INFILTRATION. ON TPN RUNNING AT 80 ML/HR. KNUTSON CATH IN PLACE, MODERATE URINE OUTPUT NOTED. PT NOTED WITH GT CONNECTED TO DRAINAGE BAG WITH GREENISH/BROWNISH COLOR, PSOAS DRAINING BAG, RIGHT ABDOMEN CHOLECYSTECTOMY DRAINING BAG AND RECTAL TUBE, ALL NOTED. SAFETY MEASURES IN PLACE: BED ALARM IS ON. HEAD OF BED ELEVATED. BED LOCKED, IN LOWEST POSITION, SIDE RAILS UP X 3. CALL LIGHT WITHIN REACH. WILL CONTINUE TO MONITOR AND REASSESS FOR ANY CHANGES AND WILL CARRY OUT ANY ONGOING AND ACTIVE MD ORDER.
--- NOTE | 2022-05-14 19:41 | NUR ---
RT PT RCVD TRACHED WITH SIZE SHILEY 6 ON ORDERED VENT SETTINGS AND RICARDA WELL. TRACH IS PATENT AND SECURED. PT IS AWAKE AND NON VERBAL. SUCTION PRN ,VENT PLUGGED INTO RED OUTLET WITH ALARMS ON AND AUDIBLE. WILL CONTINUE TO MONITOR T/O SHIFT.
[2022-05-14 20:00] VITALS: BP 151/94
[2022-05-15] VITALS: BP 144/95
[2022-05-15] MEDS: MEROPENEM 500 MG in IV NS 0.9% 50 ML IV SCH ×2 (01:02→14:15)
[2022-05-15] MEDS: METOPROLOL TARTRATE INJ 5 MG/5 ML AMPUL IVP SCH ×4 (02:28→20:13)
[2022-05-15] MEDS ORDERED: TPN BAG #13 IV SCH ×2 (03:00)
[2022-05-15 04:00] VITALS: BP 143/84
[2022-05-15] MEDS: BLOOD SUGAR DIAGNOSTIC 1 EACH STRIP IN SCH ×4 (05:23→23:57)
[2022-05-15] MEDS: INSULIN REGULAR, HUMAN 100 UNIT/ML 3 ML VIAL SQ PRN ×2 (05:31→18:14)
--- NOTE | 2022-05-15 06:28 | NUR ---
MOSS PICKER CLOSING NOTE NO SIGNIFICANT CHANGE T/O THE NIGHT. PT HAD A LOT OF SECRETIONS IN HIS TRACH AND MOUTH. SUCTIONED FREQUENTLY. CURRENTLY SR WITH HR IN THE 60s. NO S/SX OF RESPI DISTRESS NOTED. ALL DUE MEDS GIVEN. NEEDS ATTENDED TO. TURNED AND REPOSITIONED. WILL ENDORSE TO AM SHIFT NURSE FOR HAMILTON.
--- NOTE | 2022-05-15 07:10 | NUR ---
RN NOTE RECEIVED PATIENT IN BED RESTING OBTUNDED ON MECHANICAL VENT,SETTING PRESCRIBED EYES OPEN,NON VERBAL,IV SITE IS ON RIGHT UPPER ARM PICC LINE INTACT PATENT,ON TPN 100CC/HR,RECTAL TUBE IN PLACE,GT CLAMPED, AND CONNECTED TO DRAINING BAG,PSOAS BAG IN PLACE,CHOLECYSTOMY BAG IS CONNECTED,KNUTSON CATH IN PLACE URINE DRAINING BY GRAVITY,LEFT WRIST RESTRAIN IN PLACE WILL CHECK EVERY 15 MIN FOR SKIN BREAKDOWN, AND CIRCULATION,HEAD OF THE BED ELEVATED,BED IN LOW POSITION AND LOCKED CONTINUE TO MONITOR.
[2022-05-15 07:18] LABS: CHOLESTEROL 100 mg/dL (<200); HDL CHOLESTEROL 13 mg/dL (40-60); LDL 45 mg/dL (0-99); TRIGLYCERIDES 282 mg/dL (30-150)
[2022-05-15 07:18] LABS: CALCIUM, SERUM 8.6 mg/dL (8.5-10.1); MAGNESIUM 2.1 mg/dL (1.8-2.4); PHOSPHORUS 2.6 mg/dL (2.5-4.9)
[2022-05-15 07:25] LABS: POTASSIUM 2.4 mmol/L (3.5-5.1)
[2022-05-15 08:00] VITALS: BP 126/72
[2022-05-15] MEDS: PANTOPRAZOLE 40 MG VIAL IV SCH ×2 (08:05→20:13)
[2022-05-15] MEDS: METOCLOPRAMIDE HCL 10 MG/2 ML VIAL IV SCH ×3 (08:05→17:05)
[2022-05-15 08:49] LABS: BASOPHILS % (AUTO) 0.2 % (0.0-2.0); EOSINOPHILS % (AUTO) 1.1 % (0.0-6.0); HEMATOCRIT 26 % (39-51); HEMOGLOBIN 8.5 g/dL (13.5-17.5); LYMPHOCYTES % (AUTO) 9.4 % (20.0-44.0); MEAN CORPUSCULAR HGB CONC 33 g/dl (31.0-36.0); MEAN CORPUSCULAR VOLUME 93 fL (80-96); MONOCYTES # (AUTO) 0.8 K/uL (0.1-1.30); MONOCYTES % (AUTO) 7.8 % (2.0-12.0); NEUTROPHILS # (AUTO) 8.5 K/uL (1.8-8.9); NEUTROPHILS % (AUTO) 81.5 % (43.0-81.0); PLATELET COUNT (AUTO) 78 K/uL (150-450); RED BLOOD CELL COUNT(AUTO) 2.76 MIL/uL (4.5-6.0); WHITE BLOOD COUNT (AUTO) 10.4 K/uL (4.3-11.0)
--- NOTE | 2022-05-15 09:00 | NUR ---
RN NOTE POTASSIUM 2.[address] VELAZQUEZ HE ORDERED 40MEQ POTASSIUM IV NOTED AND CARRIED OUT.ALSO ALBUMIN 1.2 NOTIFIED DNP ARYA WITH NO NEW ORDER CONTINUE TO MONITOR
[2022-05-15] MEDS: DAKINS QUARTER STRENGTH (0.125%) 480 ML BOTTLE TOP SCH (09:20)
[2022-05-15 09:22] LABS: PREALBUMIN 20.5 MG/DL (18.0-35.7)
[2022-05-15 09:29] LABS: ALBUMIN 1.2 g/dL (3.4-5.0)
[2022-05-15] MEDS: THERAHONEY GEL 1.5 OZ TUBE TP SCH (09:51)
[2022-05-15] MEDS ORDERED: POTASSIUM CHLORIDE 10 MEQ/50 ML PREMIXED IVPB FOR PERIPHERAL LINE IV ONE ×6 (10:00→15:00)
[2022-05-15 12:00] VITALS: BP 141/73
[2022-05-15] MEDS ORDERED: TPN BAG #14 IV SCH ×4 (13:00)
[2022-05-15] MEDS: MICAFUNGIN SODIUM 100 MG in IV NS 0.9% 100 ML IV SCH (14:37)
[2022-05-15] MEDS: POTASSIUM CL. PREMIX PERIPHER. 50 ML IV SCH ×9 (14:48→22:51)
[2022-05-15 16:00] VITALS: BP 133/83
--- NOTE | 2022-05-15 19:11 | NUR ---
RN NOTE PATIENT REMAINS OBTUNDED ON MECHANICAL VENT,WITH A LOT OF SECRETION, MULTI TIMES SANCTIONING,REPOSITIONED AND TURNED, REPLACED POTASSIUM PER DR MCINTOSH ORDER,HEAD OF THE BED ELEVATED ALL THE TIME,ENDORSE NEXT COMING SHIFT FOR CONTINUATION OF CARE
--- NOTE | 2022-05-15 19:30 | NUR ---
DRESS FINISHER OPENING NOTE RECEIVED REPORT FROM ADAM HEADLEY FOR HAMILTON. PT IN BED, AWAKE, RESTING COMFORTABLY. ON MECHANICAL VENT; SETTINGS PRESCRIBED; PT TOLERATING WELL. O2 SAT AT 100%. NO S/SX OF ACUTE RESPI DISTRESS NOTED AT THIS TIME. NO SOB NOTED. PATIENT'S BREATHING IS EVEN AND UNLABORED. ON TELE MONITORING READING SINUS RHYTHM. IV SITE ON HILDA PICC LINE; PATENT, INTACT AND FLUSHING WELL; NO S/SX OF INFECTION OR INFILTRATION. ON TPN RUNNING AT 100 ML/HR. KNUTSON CATH IN PLACE, MODERATE URINE OUTPUT NOTED. PT NOTED WITH GT CONNECTED TO DRAINAGE BAG WITH GREENISH/BROWNISH COLOR, PSOAS DRAINING BAG, RIGHT ABDOMEN CHOLECYSTECTOMY DRAINING BAG AND RECTAL TUBE, ALL NOTED. SAFETY MEASURES IN PLACE: BED ALARM IS ON. HEAD OF BED ELEVATED. BED LOCKED, IN LOWEST POSITION, SIDE RAILS UP X 3. CALL LIGHT WITHIN REACH. WILL CONTINUE TO MONITOR AND REASSESS FOR ANY CHANGES AND WILL CARRY OUT ANY ONGOING AND ACTIVE MD ORDER.
[2022-05-15 20:00] VITALS: BP 142/92
--- NOTE | 2022-05-15 20:45 | NUR ---
RN NOTE PT HAD LOW TEMP AT 95.1 PT IS IN NO RESPI DISTRESS UPON ASSESSMENT. HOOKED PT UP TO LIZ PANIAGUA. WILL MONITOR PT CLOSELY.
[2022-05-15] MEDS ORDERED: TPN BAG #15 IV SCH ×2 (23:00)
[2022-05-16] VITALS (14 sets, daily range): BP systolic 101–147; BP diastolic 60–86
[2022-05-16] MEDS: MEROPENEM 500 MG in IV NS 0.9% 50 ML IV SCH ×2 (01:10→14:11)
[2022-05-16] MEDS: METOPROLOL TARTRATE INJ 5 MG/5 ML AMPUL IVP SCH ×4 (02:14→20:21)
[2022-05-16] MEDS: BLOOD SUGAR DIAGNOSTIC 1 EACH STRIP IN SCH ×3 (05:47→18:13)
[2022-05-16] MEDS: INSULIN REGULAR, HUMAN 100 UNIT/ML 3 ML VIAL SQ PRN ×2 (05:47)
[2022-05-16 05:57] LABS: BASOPHILS % (AUTO) 0.2 % (0.0-2.0); EOSINOPHILS % (AUTO) 2.8 % (0.0-6.0); HEMATOCRIT 28 % (39-51); HEMOGLOBIN 8.8 g/dL (13.5-17.5); LYMPHOCYTES # (AUTO) 0.9 K/uL (0.8-4.8); LYMPHOCYTES % (AUTO) 5.2 % (20.0-44.0); MEAN CORPUSCULAR HGB CONC 32 g/dl (31.0-36.0); MEAN CORPUSCULAR VOLUME 95 fL (80-96); MONOCYTES # (AUTO) 1.2 K/uL (0.1-1.30); MONOCYTES % (AUTO) 6.6 % (2.0-12.0); NEUTROPHILS # (AUTO) 14.8 K/uL (1.8-8.9); NEUTROPHILS % (AUTO) 85.2 % (43.0-81.0); PLATELET COUNT (AUTO) 132 K/uL (150-450); WHITE BLOOD COUNT (AUTO) 17.4 K/uL (4.3-11.0)
--- NOTE | 2022-05-16 06:32 | NUR ---
RN CLOSING NOTE PT TEMP WENT UP TO NORMAL RANGE AFTER MONITORING T/O THE NIGHT. PT STILL WITH LIZ HUGGER. TELE MONITOR READS ST WITH HR IN THE LOW 100s. O2 SAT >95%. KNUTSON CATH DRAINED WITH BLOOD TINGED URINE. MD AWARE. ALL DUE MEDS GIVEN. AM/PM CARE DONE. TURNED AND REPOSITIONED. WILL ENDORSE TO AM SHIFT NURSE FOR HAMILTON.
[2022-05-16 06:53] LABS: CALCIUM, SERUM 8.6 mg/dL (8.5-10.1); CREATININE 2.8 mg/dL (0.6-1.3); MAGNESIUM 1.7 mg/dL (1.8-2.4); PHOSPHORUS 1.7 mg/dL (2.5-4.9); POTASSIUM 3.6 mmol/L (3.5-5.1)
--- NOTE | 2022-05-16 07:30 | NUR ---
EGG BREAKING MACHINE OPERATOR AM NOTES: PT IN BED, OBTUNDED, WITH SH #6 TRACH TO MECHANICAL VENT WITH SETTINGS ORDERED: AC 24 TV 425 FIO2 40 PEEP 5 O2 SAT 93%. RESPIRATION UNLABORED, EVEN, NO DISTRESS NOTED, HOB UP 30DEG, SINUS TACH HR 105 ON MONITOR, NO SIGNS OF PAIN, AFEBRILE, HILDA PICC LINE, FLUSHES WELL, SITE CLEAR, CDI DRESSING, RESTRAINTS ON LEFT WRIST, HAND MITTEN RELEASED AND CHECKED FOR CIRCULATION THEN Q 2 HOURS. GT CLAMPED AT THIS TIME. KNUTSON CATHETER, FLEXI-SEAL AND ALL OTHER DRAINAGE BAG IN PLACE. DRAINING WELL. SEE NURSING FLOWSHEET FOR SKIN ISSUES, WILL PERFORM PRESCRIBED WOUND TREATMENT IN A WHILE. WILL TURN AND REPOSITION Q 2 HOURS, OFFLOADING. ALL SAFETY MEASURES IN PLACE. SIDE RAILS UP X3, BED IN LOWEST POSITION AND LOCKED. PLACE CALL LIGHT WITH IN REACH. WILL CONTINUE TO MONITOR.
[2022-05-16] MEDS: METOCLOPRAMIDE HCL 10 MG/2 ML VIAL IV SCH ×3 (08:29→17:50)
[2022-05-16] MEDS: PANTOPRAZOLE 40 MG VIAL IV SCH ×2 (08:29→20:20)
[2022-05-16 08:40] LABS: BAND % (MANUAL) 9 % (0.0-5.0); BASOPHILS % (MANUAL) 0 % (0.0-2.0); EOSINOPHILS % (MANUAL) 3 % (0-4); LYMPHOCYTES % (MANUAL) 8 % (16-48); MONOCYTES % (MANUAL) 5 % (0-11.0); NEUTROPHILS % (MANUAL) 75 (42-76)
[2022-05-16] MEDS ORDERED: TPN BAG #16 IV SCH ×8 (09:00→11:00)
--- NOTE | 2022-05-16 09:30 | NUR ---
RN NOTES DUE MEDS GIVEN
[2022-05-16] MEDS: DAKINS QUARTER STRENGTH (0.125%) 480 ML BOTTLE TOP SCH (10:06)
[2022-05-16] MEDS: THERAHONEY GEL 1.5 OZ TUBE TP SCH (10:07)
[2022-05-16] MEDS ORDERED: Magnesium 1GM/D5W 100ML PREMIX 100 ML IV SCH (11:00)
[2022-05-16 11:26] LABS: ABG BASE EXCESS -12.3 mmol/L; ABG OXYGEN SATURATION 92.6 % (92.0-98.5); ABG PCO2 35.2 mmHg (35.0-45.0); ABG PH 7.227 (7.350-7.450); ABG PO2 68.8 mmHg (75.0-100.0); AaDO2 103.7 mmHg; COHb 0.3 % (0.5-1.5); MetHb 0.4 % (0.0-1.5); SITE, ABG Right Radial; VENT MODE, BG ac 24 425 +5 30%
--- NOTE | 2022-05-16 12:50 | NUR ---
RN NOTES PER DR. OTERO, TRANSFER TO ICU, INCREASE TV TO 450, ABG IN 1 HOURS. REPEAT CXR.
[2022-05-16] MEDS ORDERED: Sodium Phosphate 15 MMOL in IV NS 0.9% 245 ML IV SCH (13:00)
--- NOTE | 2022-05-16 13:11 | NUR ---
RN NOTES PATIENT TRANSFERED TO ICU 259. BEDISIDE REPORT GIVEN TO LUISITO MEDINA FOR HAMILTON.
--- NOTE | 2022-05-16 13:45 | NUR ---
RN NOTE PT ARRIVED FROM [facility] ACCOMPANIED BY ADAM CARRERO AND CARTON COUNTER FEEDER. PT CLEANED UP, PLACED ON THE MONITOR, WOUND CARE PERFORMED. ALL 5 RESERVOIRS PLACED BELOW PATIENT TO DRAIN BY GRAVITY. R UA PICC IS PATIENT AND INTACT. TPN PROMPTLY STARTED. RN WILL CONTINUE CARE PLAN AND ANTICIPATE NEEDS.
[2022-05-16] MEDS: MICAFUNGIN SODIUM 100 MG in IV NS 0.9% 100 ML IV SCH (14:56)
[2022-05-16 15:15] LABS: ABG OXYGEN SATURATION 96.7 % (92.0-98.5); ABG PCO2 23.8 mmHg (35.0-45.0); ABG PH 7.333 (7.350-7.450); ABG PO2 89.3 mmHg (75.0-100.0); AaDO2 96.6 mmHg; COHb 0.3 % (0.5-1.5); MetHb 0.4 % (0.0-1.5); SITE, ABG Left Radial
[2022-05-16 15:17] LABS: VENT MODE, BG ac 24 450 +5 30%
[2022-05-16] MEDS: VANCOMYCIN HCL 0.75 GM in IV D5W 250 ML IV SCH (15:50)
[2022-05-16] MEDS ORDERED: TPN BAG #17 IV SCH ×4 (19:00)
--- NOTE | 2022-05-16 19:30 | NUR ---
RN NOTES PT FOUND SEMI FOWLERS DISPLAYING NO S/S OF DISTRESS, FLACC = 0 AND BILATERAL RISE AND FALL OF THE CHEST OBSERVED. TACHYPNEA REMAINS. RESERVOIRS BELOW PATIENT DRAINING BY GRAVITY. R MITTEN ON, PULSE PALPATED PROXIMALLY TO MITTEN. SBAR AND REPORT GIVEN TO DEVELOPMENT ADMINISTRATOR RN. SAFETY MEASURES IN PLACE, BED LOCKED AND IN LOWEST POSITION, SIDE RAILS UPX2, CALL LIGHT WITHIN REACH, BED ALARM ARMED.
--- NOTE | 2022-05-16 19:31 | NUR ---
RN OPENING NOTES RECEIVED PATIENT ON BED, OBTUNDED. PT. ON TRACH, WITH VENT SETTINGS AC-24, TV- 450, FIO2-30%, PEEP- 5, SATING AT 99%. PATIENT APPEARS TO BE TACHYPNEIC, RR- 45 BPM. AFEBRILE, NO S/S OF DISTRESS NOTED. WITH HILDA PICC LINE, PATENT, INTACT, FLUSHED WITH NS. NO S/S OF INFILTRATION NOTED. WITH TPN @ 100 ML/HR. GTUBE PATENT AND INTACT, CONNECTED TO CATHETER BAG FOR ABSCESS COLLECTION, RIGHT CHOLECYSTOSTOMY CONNECTED TO DRAINAGE BAG, LEFT PSOAS DRAIN CONNECTED TO DRAINAGE BAG. FLEXISEAL PATENT INTACT WITH BROWN LIQUID STOOL. KNUTSON CATHETER PATENT INTACT DRAINING WITH CLEAR YELLOW URINE VIA GRAVITY. REPOSITION PATIENT EVERY 2 HRS. ALL SAFETY PRECAUTION PROVIDED, BED IN LOWEST POSITION, LOCKED. BED ALARM ARMED. CALL LIGHT WITH IN REACH. CONTINUE TO MONITOR.
--- NOTE | 2022-05-16 19:45 | NUR ---
RN NOTES PATIENT NOTED TO BE TACHYPNEIC, RR- MID 40'S, DNP ADRI HAHN NOTIFIED WITH NEW ORDER ABG NOTED AND CARRIED OUT.
[2022-05-16] MEDS: LORAZEPAM INJ 2 MG/ML VIAL IV PRN (20:40)
--- NOTE | 2022-05-16 20:40 | NUR ---
RN NOTES PATIENT STILL TACHYPNEIC, RR- MID 40'S, ATIVAN 0.5MG IVP GIVEN
[2022-05-16] MEDS: MORPHINE SULFATE INJ 2 MG/ML DISP.SYRIN IV PRN (23:25)
[2022-05-17] VITALS (55 sets, daily range): BP systolic 71–131; BP diastolic 41–79
[2022-05-17] MEDS ORDERED: IV 1/2NS 1000 ML 1,000 ML IV ONE
[2022-05-17] MEDS: BLOOD SUGAR DIAGNOSTIC 1 EACH STRIP IN SCH ×4 (00:39→17:40)
[2022-05-17] MEDS: INSULIN REGULAR, HUMAN 100 UNIT/ML 3 ML VIAL SQ PRN ×2 (00:45→06:12)
[2022-05-17] MEDS: IV NS 0.9% 250 ML IV PRN (01:24)
[2022-05-17] MEDS: MEROPENEM 500 MG in IV NS 0.9% 50 ML IV SCH ×2 (01:39→13:39)
[2022-05-17] MEDS: VANCOMYCIN HCL 0.75 GM in IV D5W 250 ML IV SCH (02:59)
[2022-05-17] MEDS: METOPROLOL TARTRATE INJ 5 MG/5 ML AMPUL IVP SCH ×4 (03:00→21:00)
[2022-05-17 03:28] LABS: BASOPHILS % (AUTO) 0.1 % (0.0-2.0); EOSINOPHILS % (AUTO) 1.7 % (0.0-6.0); HEMATOCRIT 24 % (39-51); HEMOGLOBIN 7.6 g/dL (13.5-17.5); LYMPHOCYTES # (AUTO) 1.4 K/uL (0.8-4.8); LYMPHOCYTES % (AUTO) 7.2 % (20.0-44.0); MEAN CORPUSCULAR HGB CONC 32 g/dl (31.0-36.0); MEAN CORPUSCULAR VOLUME 96 fL (80-96); MONOCYTES # (AUTO) 1.2 K/uL (0.1-1.30); MONOCYTES % (AUTO) 6.4 % (2.0-12.0); NEUTROPHILS # (AUTO) 15.9 K/uL (1.8-8.9); NEUTROPHILS % (AUTO) 84.6 % (43.0-81.0); PLATELET COUNT (AUTO) 118 K/uL (150-450); WHITE BLOOD COUNT (AUTO) 18.8 K/uL (4.3-11.0)
[2022-05-17 03:42] LABS: CALCIUM, SERUM 8.4 mg/dL (8.5-10.1); CREATININE 2.5 mg/dL (0.6-1.3); MAGNESIUM 1.8 mg/dL (1.8-2.4)
[2022-05-17 03:55] LABS: POTASSIUM 2.8 mmol/L (3.5-5.1)
--- NOTE | 2022-05-17 04:10 | NUR ---
RN NOTES NOTIFIED CHATA HAHN REGARDING PATIENT LATEST POTASSIUM- 2.8 WITH NEW ORDER GIVE POTASSIUM 60 MEQ IV NOTED AND CARRIED OUT.
[2022-05-17 04:45] LABS: BAND % (MANUAL) 9 % (0.0-5.0); BASOPHILS % (MANUAL) 0 % (0.0-2.0); EOSINOPHILS % (MANUAL) 2 % (0-4); LYMPHOCYTES % (MANUAL) 8 % (16-48); MONOCYTES % (MANUAL) 5 % (0-11.0); NEUTROPHILS % (MANUAL) 76 (42-76)
[2022-05-17] MEDS: POTASSIUM CL. PREMIX PERIPHER. 50 ML IV SCH ×6 (04:58→11:22)
[2022-05-17] MEDS ORDERED: TPN BAG #18 IV SCH ×2 (05:00)
--- NOTE | 2022-05-17 06:13 | NUR ---
RN NOTES BLOOD SUGAR 103 mg/dL. NO INSULIN COVERAGE PER SLIDING SCALE, NO S/S OF HYPO GLYCEMIA NOTED.
--- NOTE | 2022-05-17 07:10 | NUR ---
CUTTING MACHINE OFFBEARER OPENING NOTE: RECEIVED PATIENT IN BED, OBTUNDED. PT. ON TRACH, SHILEY #6, WITH VENT SETTINGS AC-24, TV- 450, FIO2-30%, PEEP- 5, SATURATING AT 100%. PT. IS TACHYPNEIC, RR- 39 BPM. SOCIAL SERVICES READS NSR, WITH HR OF 88 BPM. NO S/S OF DISTRESS NOTED. PT. ON LIZ HUGGER. TEMP AT 0400 IS AT 97.3 F. WILL CONTINUE TO MONITOR TEMP. ON L HAND SOFT RESTRAINTS, PALPABLE PULSES NOTED WITH CAP REFILL < 3 SECS IN ALL EXTREMITIES. WITH HILDA PICC LINE, PATENT, INTACT, FLUSHED WITH NS. NO S/S OF INFILTRATION NOTED. WITH TPN @ 100 ML/HR. GTUBE PATENT AND INTACT, CONNECTED TO CATHETER BAG FOR DRAINAGE, RIGHT CHOLECYSTOSTOMY CONNECTED TO DRAINAGE BAG, LEFT PSOAS CONNECTED TO DRAINAGE BAG. FLEXISEAL PATENT INTACT WITH BROWN LIQUIDY STOOL NOTED IN BAG. KNUTSON CATHETER PATENT INTACT DRAINING WITH CLOUDY YELLOW URINE VIA GRAVITY. MULTIPLE SKIN ISSUES NOTED. WILL DO WOUND TREATMENT ORDERED. SAFETY MEASURES IN PLACE: BED IN LOWEST POSITION, LOCKED. HOB ELEVATED AT 30 DEGREES. BED ALARM ON. CALL LIGHT WITH IN REACH. WILL REPOSITION PATIENT AT LEAST EVERY 2 HRS. WILL CONTINUE TO MONITOR PT. FOR ANY CHANGES.
--- NOTE | 2022-05-17 07:12 | NUR ---
RN NOTES PATIENT SLEEPING, AROUSABLE. REMAIN AFEBRILE, NO S/S OF DISTRESS NOTED. WITH TPN @ 100 ML/HR. GTUBE PATENT AND INTACT, CONNECTED TO CATHETER BAG FOR ABSCESS COLLECTION, RIGHT CHOLECYSTOSTOMY CONNECTED TO DRAINAGE BAG, LEFT PSOAS DRAIN CONNECTED TO DRAINAGE BAG. FLEXISEAL PATENT INTACT WITH BROWN LIQUID STOOL. KNUTSON CATHETER PATENT INTACT DRAINING WITH CLEAR YELLOW URINE VIA GRAVITY. REPOSITION PATIENT EVERY 2 HRS. ALL DUE MEDS GIVEN. WOUND CARE DONE, TOLERATED WELL. ALL SAFETY PRECAUTION PROVIDED, BED IN LOWEST POSITION, LOCKED. BED ALARM ARMED. CALL LIGHT WITH IN REACH. REPORT GIVEN TO MORNING SHIFT NURSE FOR CONTINUITY OF CARE.
[2022-05-17] MEDS: PANTOPRAZOLE 40 MG VIAL IV SCH ×2 (07:39→20:38)
[2022-05-17] MEDS: MORPHINE SULFATE INJ 2 MG/ML DISP.SYRIN IV PRN (07:40)
--- NOTE | 2022-05-17 07:50 | NUR ---
MAINTENANCE MECHANIC TELEPHONE NOTE: MORPHINE 1 MG IV GIVEN AT 0740 FOR TACHYPNEA AT 39-42 BREATHS PER MIN. SATURATING AT 99-100% WITH SAME VENT SETTINGS. WILL CONTINUE TO MONITOR PT.'S RESPIRATORY RATE.
[2022-05-17] MEDS ORDERED: POTASSIUM CL. PREMIX PERIPHER. 50 ML IV SCH (08:00)
[2022-05-17] MEDS: THERAHONEY GEL 1.5 OZ TUBE TP SCH (08:22)
[2022-05-17] MEDS: METOCLOPRAMIDE HCL 10 MG/2 ML VIAL IV SCH ×3 (08:23→17:10)
[2022-05-17] MEDS: LORAZEPAM INJ 2 MG/ML VIAL IV PRN (08:49)
[2022-05-17] MEDS ORDERED: Magnesium 1GM/D5W 100ML PREMIX 100 ML IV SCH (09:00)
--- NOTE | 2022-05-17 09:00 | NUR ---
PLAYGROUND ATTENDANT NOTE: PT. STILL TACHYPNEIC AT 45 BPM EVEN AFTER GIVING MORPHINE. ATIVAN 0.5MG IV GIVEN AT 0849. SATURATING AT 99% WITH SAME VENT SETTINGS AT THIS TIME. WILL CONTINUE TO MONITOR PT.'S RESPIRATORY RATE.
[2022-05-17] MEDS ORDERED: Sodium Phosphate 15 MMOL in IV NS 0.9% 245 ML IV SCH (10:00)
--- NOTE | 2022-05-17 10:00 | NUR ---
RN NOTES PHARMACY FORGOT TO DELIVER PATIENT TPN DUE @ 0100 05/18/22, NOTIFIED PSYCHIATRIST SUSAN VARGHESE, PER SUSAN, OK TO HOLD IT, PATIENT ALREADY HAVE D5W WITH BICARD. WILL F/U WITH PHARMACY IN MORNING.
[2022-05-17 10:04] LABS: ABG BASE EXCESS -15.5 mmol/L; ABG OXYGEN SATURATION 96.2 % (92.0-98.5); ABG PCO2 26.6 mmHg (35.0-45.0); ABG PH 7.223 (7.350-7.450); ABG PO2 89.5 mmHg (75.0-100.0); AaDO2 93.1 mmHg; COHb 0.3 % (0.5-1.5); MetHb 0.3 % (0.0-1.5); O2Hb 95.6 % (94.0-97.0); SITE, ABG Right Radial
[2022-05-17] MEDS: DAKINS QUARTER STRENGTH (0.125%) 480 ML BOTTLE TOP SCH (10:07)
[2022-05-17] MEDS ORDERED: SODIUM BICARBONATE SYR 50 MEQ/50 ML DISP.SYRIN IV ONE (11:00)
[2022-05-17] MEDS: PROPOFOL 100 ML IV PRN ×4 (11:52→23:36)
[2022-05-17] MEDS: Sodium Bicarbonate 150 MEQ in IV D5W 1,000 ML IV SCH (11:52)
--- NOTE | 2022-05-17 12:00 | NUR ---
FAMILY SUPPORT WORKER NOTE: PT.'S LATEST ABG SHOWS BICARB AT 10.7 MMOL/L. DR. OTERO ORDERED 50MEQ OF SODIUM BICARB IV ONCE, AND D5W WITH 150 MEQ SODIUM BICARB IVF TO RUN AT 60 ML/HR. ADMINISTERED MEDS AND IVF ORDERED. WILL CONTINUE TO MONITOR PT. FOR ANY CHANGES.
--- NOTE | 2022-05-17 12:02 | NUR ---
LOCOMOTIVE OILER NOTE: PT.'S TEMP IS NOW AT 98.1F. WILL KEEP PT. ON LIZ HUGGER. PT. ALSO STARTED ON DIPRIVAN DRIP DUE TO PERSISTENT TACHYPNEA, NOW AT 45 BPM. WILL CONTINUE TO MONITOR PT.'S TEMP AND RESPIRATORY RATE.
[2022-05-17 13:31] LABS: TOTAL IRON BINDING CAPACITY 159 ug/dl (250-450)
[2022-05-17] MEDS: MICAFUNGIN SODIUM 100 MG in IV NS 0.9% 100 ML IV SCH (13:39)
[2022-05-17 13:56] LABS: IRON, SERUM 74 ug/dl (50-175)
[2022-05-17 14:27] LABS: FERRITIN 4976 ng/mL (8-388)
[2022-05-17] MEDS ORDERED: TPN BAG #19 IV SCH ×4 (15:00)
[2022-05-17] MEDS: PHENYLEPHRINE 50 MG in IV NS 0.9% 245 ML IV PRN ×2 (15:01→22:14)
--- NOTE | 2022-05-17 15:05 | NUR ---
BUSINESS ANALYSIS CONSULTANT NOTE: NEOSYNEPHRINE DRIP STARTED AT 1501 DUE TO BP OF 82/46. STARTED DRIP AT 0.5 MCG/KG/MIN PER PROTOCOL. DR. OTERO ORDERED TO TITRATE DRIP TO MAINTAIN SBP >90. WILL CONTINUE TO MONITOR PT.'S BP.
--- NOTE | 2022-05-17 15:10 | NUR ---
TUMBLER OPERATOR NOTE: LOPRESSOR 5MG IVP SCHEDULED AT 1500 HELD DUE TO BP OF 81/49 AND HR - 109. WILL CONTINUE TO MONITOR PT.'S BP.
[2022-05-17 15:48] LABS: BILIRUBIN,URINE NEGATIVE (NEGATIVE); COLOR,URINE YELLOW (YELLOW); LEUKOCYTE ESTERASE ,URINE MODERATE (NEGATIVE); NITRITE, URINE NEGATIVE (NEGATIVE); PROTEIN,URINE 30 mg/dl (NEGATIVE); UGLUCOSE NEGATIVE (NEGATIVE); UROBILINOGEN,URINE 0.2 EU/dL (0.2)
[2022-05-17 16:04] LABS: BACTERIA,URINE Few /HPF (None Seen); SQUAMOUS EPITHELIAL CELL,UR Few /HPF (None Seen)
--- NOTE | 2022-05-17 19:05 | NUR ---
RESEARCH PROJECT MANAGER CLOSING NOTE: PATIENT REMAINS IN BED, SEDATED. PT. ON TRACH, SHILEY #6, WITH VENT SETTINGS AC-24, TV- 450, FIO2-50%, PEEP- 5, SATURATING AT 95%. PT. IS STILL TACHYPNEIC BUT IMPROVED AND NOW HAS RR- 26 BPM. ROCK STAR READS SINUS TACH, WITH HR OF 114 BPM AT THIS TIME. PT. STILL ON LIZ HUGGER. LAST TEMP AT 1600 IS 98.1F. ON L HAND SOFT RESTRAINTS, PALPABLE PULSES NOTED WITH CAP REFILL < 3 SECS IN ALL EXTREMITIES. IV ACCESS HILDA PICC LINE, PATENT, INTACT. NO S/S OF INFILTRATION NOTED. WITH TPN @ 100 ML/HR. IVF OF D5W WITH 150 MEQ BICARB RUNNING AT 60ML/HR; NEOSYNEPHRINE DRIP AT 2.4 MCG/KG/MIN; DIPRIVAN DRIP AT 100 MCG/KG/MIN. GTUBE PATENT AND INTACT, CONNECTED TO CATHETER BAG FOR DRAINAGE WITH TOTAL OUTPUT OF 100 ML THIS SHIFT, RIGHT CHOLECYSTOSTOMY CONNECTED TO DRAINAGE BAG WITH TOTAL OUTPUT OF 150 ML, LEFT PSOAS CONNECTED TO DRAINAGE BAG, WITH NO OUTPUT THIS SHIFT. FLEXISEAL PATENT INTACT. KNUTSON CATHETER PATENT INTACT DRAINING WITH CLOUDY YELLOW URINE WITH SEDIMENT VIA GRAVITY, TOTAL OUTPUT OF 750 ML THIS SHIFT. WOUND TREATMENT DONE ORDERED. SAFETY MEASURES MAINTAINED: BED IN LOWEST POSITION, LOCKED. HOB ELEVATED AT 30 DEGREES. BED ALARM ON. CALL LIGHT WITH IN REACH. REPOSITIONED PATIENT AT LEAST EVERY 2 HRS. ENDORSED CONTINUITY OF CARE TO STORY WRITER RN.
--- NOTE | 2022-05-17 19:10 | NUR ---
RN OPENING NOTES RECEIVED PATIENT ON BED, SEDATED. PT. ON TRACH, WITH VENT SETTINGS AC-24, TV- 450, FIO2-50%, PEEP- 5, SATING AT 97%. AFEBRILE, NO S/S OF DISTRESS NOTED. WITH HILDA PICC LINE, PATENT, INTACT, FLUSHED WITH NS. NO S/S OF INFILTRATION NOTED. WITH TPN @ 100 ML/HR, BICARD @ 60 ML/HR, JUANA @ 2.4 MCG/KG/MIN AND PROPOFOL @ 100 MCG/KG/MIN. GTUBE PATENT AND INTACT, CONNECTED TO CATHETER BAG FOR ABSCESS COLLECTION, RIGHT CHOLECYSTOSTOMY CONNECTED TO DRAINAGE BAG, LEFT PSOAS DRAIN CONNECTED TO DRAINAGE BAG. FLEXISEAL PATENT INTACT WITH BROWN LIQUID STOOL. KNUTSON CATHETER PATENT INTACT DRAINING WITH CLEAR YELLOW URINE VIA GRAVITY. REPOSITION PATIENT EVERY 2 HRS. ALL SAFETY PRECAUTION PROVIDED, BED IN LOWEST POSITION, LOCKED. BED ALARM ARMED. CALL LIGHT WITH IN REACH. CONTINUE TO MONITOR.
[2022-05-18] VITALS (94 sets, daily range): BP systolic 72–119; BP diastolic 42–67
[2022-05-18] MEDS: BLOOD SUGAR DIAGNOSTIC 1 EACH STRIP IN SCH ×4 (00:04→18:27)
[2022-05-18] MEDS: INSULIN REGULAR, HUMAN 100 UNIT/ML 3 ML VIAL SQ PRN ×3 (00:06→11:46)
[2022-05-18] MEDS: MEROPENEM 500 MG in IV NS 0.9% 50 ML IV SCH ×2 (01:34→13:03)
[2022-05-18] MEDS: PROPOFOL 100 ML IV PRN ×8 (02:05→23:01)
[2022-05-18] MEDS: VANCOMYCIN HCL 0.75 GM in IV D5W 250 ML IV SCH (02:55)
[2022-05-18] MEDS: METOPROLOL TARTRATE INJ 5 MG/5 ML AMPUL IVP SCH ×4 (03:00→20:32)
[2022-05-18 03:27] LABS: BASOPHILS # (AUTO) 0.1 K/uL (0.0-0.2); BASOPHILS % (AUTO) 0.2 % (0.0-2.0); EOSINOPHILS % (AUTO) 0.7 % (0.0-6.0); HEMATOCRIT 24 % (39-51); LYMPHOCYTES # (AUTO) 2.7 K/uL (0.8-4.8); LYMPHOCYTES % (AUTO) 7.4 % (20.0-44.0); MEAN CORPUSCULAR HGB CONC 33 g/dl (31.0-36.0); MEAN CORPUSCULAR VOLUME 97 fL (80-96); MONOCYTES # (AUTO) 2.9 K/uL (0.1-1.30); MONOCYTES % (AUTO) 7.9 % (2.0-12.0); NEUTROPHILS # (AUTO) 30.9 K/uL (1.8-8.9); NEUTROPHILS % (AUTO) 83.8 % (43.0-81.0); PLATELET COUNT (AUTO) 176 K/uL (150-450)
[2022-05-18 03:39] LABS: WHITE BLOOD COUNT (AUTO) 36.9 K/uL (4.3-11.0)
[2022-05-18 03:43] LABS: CALCIUM, SERUM 8.4 mg/dL (8.5-10.1); CREATININE 2.5 mg/dL (0.6-1.3); MAGNESIUM 1.9 mg/dL (1.8-2.4); POTASSIUM 3.3 mmol/L (3.5-5.1)
[2022-05-18] MEDS: PHENYLEPHRINE 50 MG in IV NS 0.9% 245 ML IV PRN ×5 (04:00→23:14)
[2022-05-18 04:15] LABS: BAND % (MANUAL) 4 % (0.0-5.0); BASOPHILS % (MANUAL) 0 % (0.0-2.0); EOSINOPHILS % (MANUAL) 0 % (0-4); LYMPHOCYTES % (MANUAL) 11 % (16-48); MONOCYTES % (MANUAL) 5 % (0-11.0); NEUTROPHILS % (MANUAL) 74 (42-76); REACTIVE LYMPHOCYTES 0 % (0-0)
--- NOTE | 2022-05-18 05:30 | NUR ---
RN NOTES NOTIFIED CAP PARTS CUTTER SUSAN VARGHESE REGARDING PATIENT LATEST WBC- 36.9, FIBRINOGEN- 865 AND ALSO INFORMED HER ABOUT THE DECREASED URINE OUTPUT, NO NEW ORDER.
--- NOTE | 2022-05-18 06:20 | NUR ---
RN NOTES RN NOTES BLOOD SUGAR 117 mg/dL. NO INSULIN COVERAGE PER SLIDING SCALE, NO S/S OF HYPO GLYCEMIA NOTED.
[2022-05-18] MEDS: Sodium Bicarbonate 150 MEQ in IV D5W 1,000 ML IV SCH (06:38)
--- NOTE | 2022-05-18 06:45 | NUR ---
RN NOTES CALLED PHARMACY REGARDING PATIENT TPN, PER PHARMACY THEY WILL MAKE IT RIGHT AWAY.
--- NOTE | 2022-05-18 06:54 | NUR ---
RN NOTES PATIENT STILL SEDATED. AFEBRILE, NO S/S OF DISTRESS NOTED. WITH TPN @ 100 ML/HR, BICARD @ 60 ML/HR, JUANA @ 2.9 MCG/KG/MIN AND PROPOFOL @ 100 MCG/KG/MIN. GTUBE PATENT AND INTACT, CONNECTED TO CATHETER BAG FOR ABSCESS COLLECTION, RIGHT CHOLECYSTOSTOMY CONNECTED TO DRAINAGE BAG, LEFT PSOAS DRAIN CONNECTED TO DRAINAGE BAG. FLEXISEAL PATENT INTACT WITH BROWN LIQUID STOOL. KNUTSON CATHETER PATENT INTACT DRAINING WITH CLEAR YELLOW URINE VIA GRAVITY. REPOSITION PATIENT EVERY 2 HRS. ALL DUE MEDS GIVEN. ALL SAFETY PRECAUTION PROVIDED, BED IN LOWEST POSITION, LOCKED. BED ALARM ARMED. CALL LIGHT WITH IN REACH. REPORT GIVEN TO MORNING SHIFT NURSE FOR CONTINUITY OF CARE.
--- NOTE | 2022-05-18 07:10 | NUR ---
SALES ASSOCIATE KEY HOLDER OPENING NOTE: RECEIVED PATIENT IN BED, SEDATED. PT. ON TRACH, SHILEY #6, WITH VENT SETTINGS AC-24, TV- 450, FIO2-50%, PEEP- 5, SATURATING AT 99%. PT. IS TACHYPNEIC, RR- 26 BPM. RECREATION THERAPY AIDES TEACHER READS NSR, WITH HR OF 92 BPM. NO S/S OF DISTRESS NOTED. ON L HAND SOFT RESTRAINTS, PALPABLE PULSES NOTED WITH CAP REFILL < 3 SECS IN ALL EXTREMITIES. WITH HILDA PICC LINE, PATENT, INTACT. NO S/S OF INFILTRATION NOTED. WITH TPN @ 100 ML/HR, NEOSYNEPHRINE AT 2.9MCG/KG/MIN, DIPRIVAN AT 100MCG/KG/MIN, BICARB AT 60ML/HR. GTUBE PATENT AND INTACT, CONNECTED TO CATHETER BAG FOR DRAINAGE, RIGHT CHOLECYSTOSTOMY CONNECTED TO DRAINAGE BAG, LEFT PSOAS TUBING CONNECTED TO DRAINAGE BAG. FLEXISEAL PATENT INTACT WITH BROWN LIQUIDY STOOL NOTED IN BAG. KNUTSON CATHETER PATENT INTACT DRAINING WITH CLOUDY YELLOW URINE WITH SEDIMENTS VIA GRAVITY. MULTIPLE SKIN ISSUES NOTED. WILL DO WOUND TREATMENT ORDERED. SAFETY MEASURES IN PLACE: BED IN LOWEST POSITION, LOCKED. HOB ELEVATED AT 30 DEGREES. BED ALARM ON. CALL LIGHT WITHIN REACH. WILL REPOSITION PATIENT AT LEAST EVERY 2 HRS. WILL CONTINUE TO MONITOR PT. FOR ANY CHANGES.
[2022-05-18] MEDS: TPN BAG #20 IV SCH ×4 (07:29→11:00)
[2022-05-18] MEDS: PANTOPRAZOLE 40 MG VIAL IV SCH ×2 (08:35→20:32)
[2022-05-18] MEDS: METOCLOPRAMIDE HCL 10 MG/2 ML VIAL IV SCH ×3 (08:36→17:58)
[2022-05-18] MEDS: DAKINS QUARTER STRENGTH (0.125%) 480 ML BOTTLE TOP SCH (08:36)
[2022-05-18] MEDS: THERAHONEY GEL 1.5 OZ TUBE TP SCH (08:37)
[2022-05-18 08:52] LABS: ABG BASE EXCESS -16.7 mmol/L; ABG OXYGEN SATURATION 98.1 % (92.0-98.5); ABG PCO2 51.4 mmHg (35.0-45.0); ABG PH 7.031 (7.350-7.450); ABG PO2 113.7 mmHg (75.0-100.0); COHb 0.5 % (0.5-1.5); MetHb 0.4 % (0.0-1.5); O2Hb 97.2 % (94.0-97.0); SITE, ABG Left Radial
--- NOTE | 2022-05-18 10:00 | NUR ---
BICYCLE COURIER NOTE: SPOKE WITH DR. OTERO REGARDING UNSTABLE BP. ORDERED TO KEEP MAP > 65. PT.'S NOW MAX ON NEOSYNEPHRINE AT 3 MCG/KG/MIN. WILL CONTINUE TO MONITOR PT.'S BP.
[2022-05-18] MEDS ORDERED: TPN BAG #21 IV SCH ×8 (11:00→17:00)
[2022-05-18] MEDS ORDERED: POTASSIUM CL. PREMIX PERIPHER. 50 ML IV SCH (11:00)
--- NOTE | 2022-05-18 11:00 | NUR ---
ACCOUNTS RECEIVABLE SUPERVISOR NOTE: TPN SCHEDULED AT 1100 NOT ADMINISTERED. BAG ALREADY SCANNED AND ADMINISTERED AT 0729.
[2022-05-18 11:29] LABS: ABG BASE EXCESS -14.8 mmol/L; ABG OXYGEN SATURATION 92.3 % (92.0-98.5); ABG PCO2 42.6 mmHg (35.0-45.0); ABG PH 7.121 (7.350-7.450); ABG PO2 66.8 mmHg (75.0-100.0); AaDO2 241.8 mmHg; COHb 0.3 % (0.5-1.5); MetHb 0.6 % (0.0-1.5); O2Hb 91.5 % (94.0-97.0); SITE, ABG Left Radial
[2022-05-18 12:14] LABS: PREALBUMIN 22.9 MG/DL (18.0-35.7)
[2022-05-18] MEDS: MICAFUNGIN SODIUM 100 MG in IV NS 0.9% 100 ML IV SCH (13:04)
[2022-05-18 13:26] LABS: ALBUMIN 1.2 g/dL (3.4-5.0)
--- NOTE | 2022-05-18 13:30 | NUR ---
EGG PASTEURIZER NOTE: RT CHANGED TRACH TUBE FROM SHILEY #[address] OTERO'S ORDER. VT ALSO TITRATED DOWN FROM 500 TO 400 ML. WILL CONTINUE TO MONITOR PT.'S RESPIRATORY STATUS.
--- NOTE | 2022-05-18 13:40 | NUR ---
VEGETABLE FARM MANAGER NOTE: LAB CALLED TO REPORT CRITICAL LAB VALUE OF ALBUMIN OF 1.[address] GALARZA NOTIFIED AT 1336. AWAITING ORDERS.
[2022-05-18 14:52] LABS: HEMOGLOBIN 8.1 g/dL (13.5-17.5)
--- NOTE | 2022-05-18 15:00 | NUR ---
INCOMING INSPECTOR NOTE: NOTICED A POOL OF BLOOD ON PT.'S NECK DOWN TO THE BACK. BLOOD WAS TRACED FROM THE TRACHEOSTOMY STOMA. PT. CLEANED. NOT ACTIVELY BLEEDING AT THIS TIME. RT AND WOOD CUTTER NOTIFIED. WILL CONTINUE TO MONITOR FOR BLEEDING AND S/S OF HYPOVOLEMIA.
[2022-05-18] MEDS ORDERED: IV NS 0.9% 500 ML IV ONE (17:17)
[2022-05-18] MEDS ORDERED: NOREPINEPHRINE 8 MG in IV NS 0.9% 242 ML IV PRN (18:30)
--- NOTE | 2022-05-18 18:45 | NUR ---
LIVING SUPERVISOR NOTE: PT.'S BP IS AT 72/44 WITH HR OF 107 BPM. RESPIRATION AT 29 BPM SATURATING AT 98%. DR. OTERO NOTIFIED AND ORDERED TO START LEVOPHED DRIP. WILL FOLLOW ORDERS AND CONTINUE TO MONITOR PT.'S BP.
--- NOTE | 2022-05-18 19:05 | NUR ---
BARREL POLISHER INSIDE CLOSING NOTE: PATIENT REMAINS IN BED, SEDATED. PT. ON TRACH, SHILEY #XLT, WITH VENT SETTINGS AC-28, TV- 400, FIO2-50%, PEEP- 5, SATURATING AT 98%. PT. IS STILL TACHYPNEIC AT 30 BPM. BARIATRIC NURSE READS SINUS TACH, WITH HR OF 109 BPM AT THIS TIME. PT. WAS PUT ON LIZ HUGGER SINCE THIS MORNING DUE TO LOW ORAL TEMP. LAST TEMP AT 1600 IS 98.9F. ON L HAND SOFT RESTRAINTS, PALPABLE PULSES NOTED WITH CAP REFILL < 3 SECS IN ALL EXTREMITIES. IV ACCESS HILDA PICC LINE, PATENT, INTACT. NO S/S OF INFILTRATION NOTED. STILL ON TPN @ 101.1 ML/HR. IVF OF D5W WITH 150 MEQ BICARB RUNNING AT 60ML/HR; NEOSYNEPHRINE DRIP AT 3 MCG/KG/MIN; DIPRIVAN DRIP AT 100 MCG/KG/MIN, LEVOPHED AT 0.1 MCG/KG/MIN. GTUBE PATENT AND INTACT, CONNECTED TO CATHETER BAG FOR DRAINAGE WITH TOTAL OUTPUT OF 125 ML THIS SHIFT, RIGHT CHOLECYSTOSTOMY CONNECTED TO DRAINAGE BAG WITH TOTAL OUTPUT OF 75 ML, LEFT PSOAS CONNECTED TO DRAINAGE BAG, WITH NO OUTPUT THIS SHIFT. FLEXISEAL PATENT INTACT WITH 10 ML BROWN LIQUIDY STOOL OUTPUT. HEMATURIA NOTED IN KNUTSON CATHETER, PATENT. INTACT, DRAINING WITH CLOUDY RED URINE WITH SEDIMENT VIA GRAVITY, TOTAL OUTPUT OF ONLY 40 ML THIS SHIFT. WOUND TREATMENT DONE ORDERED. SAFETY MEASURES MAINTAINED: BED IN LOWEST POSITION, LOCKED. HOB ELEVATED AT 30 DEGREES. BED ALARM ON. CALL LIGHT WITH IN REACH. REPOSITIONED PATIENT AT LEAST EVERY 2 HRS. ENDORSED CONTINUITY OF CARE TO LACTATION NURSE RN.
--- NOTE | 2022-05-18 19:53 | NUR ---
RN OPENING NOTES RECEIVED CARE OF PATIENT FROM AM SHIFT NURSE, PATIENT IS SEDATED WITH PROPOFOL AT 100 MCG/KG/MIN PER MD ORDERS FOR TACHYPNEA, PATIENT'S CURRENT RR IS 30 BREATHS PER MINUTE. PATIENT HAS A TRACH UNDER MECHANICAL VENTILATION WITH ORDERED SETTINGS, TOLERATING WELL, NO SOB NOTED, O2 SAT 99%. TELE MONITOR READS SINUS TACH WITH HR OF 119 BPM. PATIENT IS ON MULTIPLE DRIPS FOR BP CONTROL, PATIENT IS ON TPN, SODIUM BICARB. SAFETY MEASURES IMPLEMENTED PER HOSPITAL PROTOCOLS. WILL CARRY OUT PLAN OF CARE.
[2022-05-19] VITALS (96 sets, daily range): BP systolic 74–147; BP diastolic 44–84
[2022-05-19] MEDS: INSULIN REGULAR, HUMAN 100 UNIT/ML 3 ML VIAL SQ PRN ×5 (00:19→23:27)
[2022-05-19] MEDS: BLOOD SUGAR DIAGNOSTIC 1 EACH STRIP IN SCH ×5 (00:20→23:31)
[2022-05-19] MEDS: MEROPENEM 500 MG in IV NS 0.9% 50 ML IV SCH ×2 (01:25→13:45)
[2022-05-19] MEDS: PROPOFOL 100 ML IV PRN ×3 (01:31→07:38)
[2022-05-19] MEDS: Sodium Bicarbonate 150 MEQ in IV D5W 1,000 ML IV SCH ×2 (02:36→21:21)
[2022-05-19] MEDS: VANCOMYCIN HCL 0.75 GM in IV D5W 250 ML IV SCH (03:00)
[2022-05-19] MEDS: METOPROLOL TARTRATE INJ 5 MG/5 ML AMPUL IVP SCH ×5 (03:00→21:00)
[2022-05-19] MEDS ORDERED: TPN BAG #22 IV SCH ×2 (03:00)
--- NOTE | 2022-05-19 03:23 | NUR ---
RN NOTES VANCO TROUGH= 29. WILL HOLD SCHEDULED VANCOMYCIN ADMINISTRATION PER PROTOCOL TO HOLD DOSE IF VANCO TROUGH IS GREATER THAN 20.
[2022-05-19] MEDS: PHENYLEPHRINE 50 MG in IV NS 0.9% 245 ML IV PRN ×4 (04:10→21:22)
[2022-05-19 05:05] LABS: CALCIUM, SERUM 8.1 mg/dL (8.5-10.1); CREATININE 2.7 mg/dL (0.6-1.3); MAGNESIUM 1.6 mg/dL (1.8-2.4); PHOSPHORUS 2.8 mg/dL (2.5-4.9)
[2022-05-19 05:19] LABS: POTASSIUM 3.4 mmol/L (3.5-5.1)
--- NOTE | 2022-05-19 07:05 | NUR ---
FORWARDER OPERATOR OPENING NOTE: RECEIVED PATIENT IN BED, SEDATED. PT. ON TRACH, SHILEY XLT, WITH VENT SETTINGS AC-28 TV- 400, FIO2-50%, PEEP- 5, SATURATING AT 100%. PT. IS TACHYPNEIC, RR- 30 BPM. FACILITIES MAINTENANCE SUPERVISOR READS SINUS TACHYCARDIA, WITH HR OF 123 BPM. NO S/S OF DISTRESS NOTED. ON L HAND SOFT RESTRAINTS, PALPABLE PULSES NOTED WITH CAP REFILL < 3 SECS IN ALL EXTREMITIES. WITH HILDA PICC LINE, PATENT, INTACT. NO S/S OF INFILTRATION NOTED. WITH TPN @ 100 ML/HR, NEOSYNEPHRINE AT 3 MCG/KG/MIN, LEVOPHED AT 0.1 MCG/KG/MIN, DIPRIVAN AT 100MCG/KG/MIN, BICARB AT 60ML/HR. GTUBE PATENT AND INTACT, CONNECTED TO CATHETER BAG FOR DRAINAGE, RIGHT CHOLECYSTOSTOMY CONNECTED TO DRAINAGE BAG, LEFT PSOAS TUBING CONNECTED TO DRAINAGE BAG. FLEXISEAL PATENT INTACT WITH BROWN LIQUIDY STOOL NOTED IN BAG. KNUTSON CATHETER PATENT INTACT DRAINING WITH CLOUDY TEA COLORED URINE WITH SEDIMENTS VIA GRAVITY. MULTIPLE SKIN ISSUES NOTED. WILL DO WOUND TREATMENT ORDERED. SAFETY MEASURES IN PLACE: BED IN LOWEST POSITION, LOCKED. HOB ELEVATED AT 30 DEGREES. BED ALARM ON. CALL LIGHT WITHIN REACH. WILL REPOSITION PATIENT AT LEAST EVERY 2 HRS. WILL CONTINUE TO MONITOR PT. FOR ANY CHANGES.
--- NOTE | 2022-05-19 07:37 | NUR ---
RN NOTES ENDORSED CARE OF PATIENT TO AM NURSE. NO SIGNIFICANT CHANGES TO PATIENT'S CONDITION THROUGHOUT SHIFT. NO SIGNIFICANT FINDINGS UPON ALL NURSING ASSESSMENTS. PLAN OF CARE CARRIED OUT. SAFETY MEASURES IMPLEMENTED PER HOSPITAL PROTOCOLS. ENDORSED CARE OF PATIENT TO AM NURSE FOR [place].
[2022-05-19] MEDS: PANTOPRAZOLE 40 MG VIAL IV SCH ×2 (09:00→20:12)
[2022-05-19] MEDS ORDERED: Magnesium 1GM/D5W 100ML PREMIX 100 ML IV SCH (09:00)
[2022-05-19] MEDS: METOCLOPRAMIDE HCL 10 MG/2 ML VIAL IV SCH ×3 (09:00→18:30)
[2022-05-19] MEDS ORDERED: POTASSIUM CL. PREMIX PERIPHER. 50 ML IV SCH (09:00)
[2022-05-19] MEDS: DAKINS QUARTER STRENGTH (0.125%) 480 ML BOTTLE TOP SCH (09:01)
[2022-05-19] MEDS: THERAHONEY GEL 1.5 OZ TUBE TP SCH (09:02)
[2022-05-19] MEDS ORDERED: MIDAZOLAM HCL 50 MG in IV NS 0.9% 40 ML IV PRN (10:00)
[2022-05-19] MEDS: MIDAZOLAM HCL 100 MG in IV NS 0.9% 80 ML IV PRN (10:50)
[2022-05-19] MEDS: FENTANYL CITRAT IV 2,500 MCG in IV NS 0.9% 200 ML IV PRN (10:51)
[2022-05-19 10:53] LABS: BASOPHILS # (AUTO) 0.2 K/uL (0.0-0.2); BASOPHILS % (AUTO) 0.6 % (0.0-2.0); EOSINOPHILS % (AUTO) 1.8 % (0.0-6.0); HEMATOCRIT 23 % (39-51); HEMOGLOBIN 7.5 g/dL (13.5-17.5); LYMPHOCYTES # (AUTO) 2.3 K/uL (0.8-4.8); LYMPHOCYTES % (AUTO) 7.4 % (20.0-44.0); MEAN CORPUSCULAR HGB CONC 33 g/dl (31.0-36.0); MEAN CORPUSCULAR VOLUME 96 fL (80-96); MONOCYTES # (AUTO) 2.2 K/uL (0.1-1.30); NEUTROPHILS # (AUTO) 26.1 K/uL (1.8-8.9); NEUTROPHILS % (AUTO) 83.2 % (43.0-81.0); PLATELET COUNT (AUTO) 182 K/uL (150-450); RED BLOOD CELL COUNT(AUTO) 2.36 MIL/uL (4.5-6.0)
[2022-05-19 10:58] LABS: WHITE BLOOD COUNT (AUTO) 31.4 K/uL (4.3-11.0)
[2022-05-19 11:05] LABS: PREALBUMIN 17.1 MG/DL (18.0-35.7)
[2022-05-19] MEDS ORDERED: SILVER NITRATE APPLICATOR 1 EA BOX TP STA (11:50)
[2022-05-19] MEDS ORDERED: LIDOCAINE 1%-EPI 1:100,000 20 ML VIAL TP STA (11:50)
[2022-05-19] MEDS ORDERED: TPN BAG #23 IV SCH ×4 (13:00)
[2022-05-19] MEDS: MICAFUNGIN SODIUM 100 MG in IV NS 0.9% 100 ML IV SCH (13:44)
--- NOTE | 2022-05-19 15:00 | NUR ---
SUPERVISOR COMPRESSED YEAST NOTE: WOUND DEBRIDEMENT DONE AT BEDSIDE. PT. TOLERATED WELL. PT. NOTED TO HAVE SMALL LACERATION ON RIGHT NECK UNDER THE TRACH COLLAR. PHOTO IN CHART. SCANT SANGUINOUS DRAINAGE NOTED. ASIF AGUILAR APPLIED SILVER NITRATE, BLEEDING STOPPED. MEPILEX ALSO APPLIED UNDER TRACH COLLAR TO PROTECT WOUND. WILL CONTINUE TO MONITOR BLEEDING.
[2022-05-19] MEDS: EPOETIN ALFA-EPBX 20,000 UNIT/ML VIAL SQ SCH (15:35)
--- NOTE | 2022-05-19 15:57 | NUR ---
LACERATION OBSERVED ON BACK OF PTS NECK. CHARGE NURSE INFORMED. TRACH TIE & GAUZE CHANGED. BLEEDING SUBSIDED. WILL CONT TO MONITOR
[2022-05-19 16:05] LABS: BAND % (MANUAL) 8 % (0.0-5.0); EOSINOPHILS % (MANUAL) 7 % (0-4); LYMPHOCYTES % (MANUAL) 16 % (16-48); METAMYELOCYTES % 2 % (0-0); MONOCYTES % (MANUAL) 4 % (0-11.0); NEUTROPHILS % (MANUAL) 61 (42-76); REACTIVE LYMPHOCYTES 2 % (0-0)
--- NOTE | 2022-05-19 19:05 | NUR ---
INTERFACE CONTROL OFFICER CLOSING NOTE: PATIENT REMAINS IN BED, SEDATED. PT. ON TRACH, SHILEY #XLT, WITH VENT SETTINGS AC-28, TV- 425, FIO2-50%, PEEP- 0, SATURATING AT 100%. CONE SEWER READS SINUS TACH, WITH HR OF 107 BPM AT THIS TIME. ON L HAND SOFT RESTRAINTS, PALPABLE PULSES NOTED WITH CAP REFILL < 3 SECS IN ALL EXTREMITIES. IV ACCESS HILDA PICC LINE, PATENT, INTACT. NO S/S OF INFILTRATION NOTED. STILL ON TPN @ 101.1 ML/HR. IVF OF D5W WITH 150 MEQ BICARB RUNNING AT 60ML/HR; NEOSYNEPHRINE DRIP AT 2.5 MCG/KG/MIN; DIPRIVAN DRIP DC'ED DUE TO TRIGLYCERIDES AT 806, REPLACED WITH VERSED RUNNING AT 2MG/HR AND FENTANYL AT 25 MCG/HR. LEVOPHED OFF. GTUBE PATENT AND INTACT, CONNECTED TO CATHETER BAG FOR DRAINAGE WITH TOTAL OUTPUT OF 80 ML THIS SHIFT, RIGHT CHOLECYSTOSTOMY CONNECTED TO DRAINAGE BAG WITH TOTAL OUTPUT OF 125 ML, LEFT PSOAS CONNECTED TO DRAINAGE BAG, WITH NO OUTPUT THIS SHIFT. FLEXISEAL PATENT INTACT WITH 25 ML BROWN LIQUIDY STOOL OUTPUT. HEMATURIA NOTED IN KNUTSON CATHETER, PATENT. INTACT, DRAINING WITH CLOUDY RED URINE WITH SEDIMENT VIA GRAVITY, TOTAL OUTPUT OF ONLY 30 ML THIS SHIFT. WOUND TREATMENT DONE ORDERED. SAFETY MEASURES MAINTAINED: BED IN LOWEST POSITION, LOCKED. HOB ELEVATED AT 30 DEGREES. BED ALARM ON. CALL LIGHT WITH IN REACH. REPOSITIONED PATIENT AT LEAST EVERY 2 HRS. ENDORSED CONTINUITY OF CARE TO SURVEILLANCE INSPECTOR RN.
--- NOTE | 2022-05-19 19:20 | NUR ---
RN NOTE Patient in bed, obtunded, in no acute distress, on trach to mechanical vent with prescribed settings, saturation at 100%, ST on the monitor, HR is 106. HILDA TL PICC in place, no sign of infection or bleeding, with Na Bicarbonate infusing at 60 ml/hr, Corona at 2.5 mcg/kg/min, Fentanyl at 25 mcg/hr, and Versed at 2 mg/hr. Gtube connected to drain in place. Cholecystotomy tube, psoas drain, de anda catheter and flexiseal draining to gravity. Soft wrist restraints at L wrist in place, skin and circulation are WNL. Safety measures implemented, will continue to monitor and reassess.
--- NOTE | 2022-05-19 20:05 | NUR ---
RN NOTE Per pharmacy, administer adjusted dose of Vancomycin 500 mg as scheduled.
[2022-05-19] MEDS ORDERED: TPN BAG #24 IV SCH ×2 (23:00)
--- NOTE | 2022-05-19 23:43 | NUR ---
RN NOTE Sputum for culture ordered by Dr Salazar collected, lab notified.
[2022-05-20] VITALS (98 sets, daily range): BP systolic 84–149; BP diastolic 53–93
[2022-05-20] MEDS: MEROPENEM 500 MG in IV NS 0.9% 50 ML IV SCH ×2 (02:11→15:14)
[2022-05-20] MEDS: METOPROLOL TARTRATE INJ 5 MG/5 ML AMPUL IVP SCH ×5 (02:58→21:00)
[2022-05-20] MEDS ORDERED: VANCOMYCIN 500 MG in IV D5W 100ml IV SCH (03:00)
[2022-05-20] MEDS: PHENYLEPHRINE 50 MG in IV NS 0.9% 245 ML IV PRN ×3 (03:57→16:36)
[2022-05-20 05:02] LABS: CALCIUM, SERUM 8.4 mg/dL (8.5-10.1); CREATININE 2.8 mg/dL (0.6-1.3); MAGNESIUM 1.7 mg/dL (1.8-2.4); POTASSIUM 3.1 mmol/L (3.5-5.1)
[2022-05-20] MEDS: BLOOD SUGAR DIAGNOSTIC 1 EACH STRIP IN SCH ×3 (06:28→17:53)
--- NOTE | 2022-05-20 07:20 | NUR ---
WOUND CARE CONSULT: PT SEEN FOR RT SIDE OF NECK DISCOLORATION WITH OPEN SKIN AND FOR LEFT BUTTOCK DISCOLORATION WITH SCARRING. LEFT BUTTOCK SCARRING/DISCOLORATION WAS NOTED TO BE PRESENT IN ADMISSION PHOTO. FOAM DRESSINGS IN PLACE FOR NECK AND LEFT BUTTOCK. PT TENDS TO KEEP HIS HEAD TURNED TO RT SIDE, MAKING NECK OFFLOADING DIFFICULT. DISCUSSED SKIN PROTECTION WITH NURSING STAFF AND SURGICAL TEAM CURRENTLY ON CASE. PT NOTED TO HAVE MULTIPLE AREAS OF SKIN DISCOLORATION AND BLISTERS WITH EDEMA INCLUDING FEET. FOOT DISCOLORATIONS NOTED TO BE PRESENT ON ADMISSION. DR TEJEDA TO BE CALLED THIS AM FOR DPM CONSULT REQUEST. PT NOTED TO HAVE MULTIPLE CO-MORBIDITIES INCLUDING CHRONIC RESPIRATORY FAILURE (VENTILATOR DEPENDENT), SEPSIS, ANEMIA, DIABETES, HISTORY OF INTRACRANIAL HEMORRHAGE (S/P CRANIECTOMY), CHRONIC KIDNEY DISEASE (STARTING HEMODIALYSIS), HISTORY OF STROKE WITH RT HEMIPLEGIA, HYPOKALEMIA AND MALNUTRITION. DETERIORATION NOTED ON ALL LEVELS PER PULMONARY MD. GENERALIZED EDEMA NOTED WITH SOME WEEPING EDEMA TO PERINEUM. CONTRACTURES NOTED. DUE TO MULTIPLE CO-MORBIDITIES, FURTHER SKIN BREAKDOWN MAY BE UNAVOIDABLE. ALL SKIN PROTECTION MEASURES IN PLACE INCLUDING FIRST STEP CIRRUS LOW AIRLOSS MATTRESS.
--- NOTE | 2022-05-20 07:30 | NUR ---
OPENING NOTE: REPORT RECEIVED FROM NEGRITA MEDINA. NEW HD CATHETER PLACED IN RIGHT FEM LAST NIGHT PER REPORT. ORDERS AND LABS REVIEWED DURING REPORT. AM MEDS HELD D/T AM HD EXCEPT CONTINUOUSLY INFUSING MEDS. PT CHECKED ON HOURLY AND PRN BY NURSING STAFF.
[2022-05-20] MEDS ORDERED: TPN BAG #25 IV SCH ×4 (09:00)
[2022-05-20] MEDS: FENTANYL CITRAT IV 2,500 MCG in IV NS 0.9% 200 ML IV PRN (09:38)
[2022-05-20] MEDS: MIDAZOLAM HCL 100 MG in IV NS 0.9% 80 ML IV PRN (09:39)
--- NOTE | 2022-05-20 10:05 | NUR ---
oxygen titration. fio2 decreased from 50% to 40% due to 150 pao2 and 100% spo2. Addendum: 05/20/22 at 1006 by FARTUN HALE RT Amended: Links added.
[2022-05-20 10:09] LABS: ABG BASE EXCESS -10.9 mmol/L; ABG PCO2 32.2 mmHg (35.0-45.0); ABG PH 7.281 (7.350-7.450); ABG PO2 150.2 mmHg (75.0-100.0); AaDO2 170.1 mmHg; COHb 0.3 % (0.5-1.5); MetHb 0.5 % (0.0-1.5); O2Hb 98.2 % (94.0-97.0); PEEP,BG 0 cm H2O; SITE, ABG Right Radial; VT, ABG 425 mL
[2022-05-20 10:09] LABS: ABG BASE EXCESS -15.4 mmol/L; ABG OXYGEN SATURATION 98.4 % (92.0-98.5); ABG PCO2 34.6 mmHg (35.0-45.0); ABG PH 7.159 (7.350-7.450); ABG PO2 119.2 mmHg (75.0-100.0); AaDO2 198.4 mmHg; COHb 0.1 % (0.5-1.5); MetHb 0.7 % (0.0-1.5); O2Hb 97.6 % (94.0-97.0); PEEP,BG 5 cm H2O; SITE, ABG Right Radial; VENT MODE, BG AC 50%; VT, ABG 400 mL
[2022-05-20] MEDS: THERAHONEY GEL 1.5 OZ TUBE TP SCH (10:13)
[2022-05-20] MEDS: DAKINS QUARTER STRENGTH (0.125%) 480 ML BOTTLE TOP SCH (10:13)
--- NOTE | 2022-05-20 11:23 | NUR ---
vent changes below per dr. franz: decreased tidal volume from 425 to 400 ml. Addendum: 05/20/22 at 1124 by FARTUN HALE RT Amended: Links added.
[2022-05-20] MEDS ORDERED: POTASSIUM CL. PREMIX PERIPHER. 50 ML IV SCH (12:00)
[2022-05-20] MEDS: METOCLOPRAMIDE HCL 10 MG/2 ML VIAL IV SCH ×3 (13:00→17:35)
[2022-05-20] MEDS ORDERED: Magnesium 1GM/D5W 100ML PREMIX 100 ML IV SCH (13:00)
[2022-05-20] MEDS: PANTOPRAZOLE 40 MG VIAL IV SCH ×2 (13:28→20:00)
[2022-05-20 15:26] LABS: BASOPHILS # (AUTO) 0.2 K/uL (0.0-0.2); BASOPHILS % (AUTO) 0.5 % (0.0-2.0); EOSINOPHILS % (AUTO) 2.1 % (0.0-6.0); LYMPHOCYTES # (AUTO) 0.8 K/uL (0.8-4.8); LYMPHOCYTES % (AUTO) 2.1 % (20.0-44.0); MEAN CORPUSCULAR HGB CONC 32 g/dl (31.0-36.0); MEAN CORPUSCULAR VOLUME 97 fL (80-96); MONOCYTES # (AUTO) 1.5 K/uL (0.1-1.30); MONOCYTES % (AUTO) 3.9 % (2.0-12.0); NEUTROPHILS # (AUTO) 35.3 K/uL (1.8-8.9); NEUTROPHILS % (AUTO) 91.4 % (43.0-81.0); PLATELET COUNT (AUTO) 140 K/uL (150-450)
[2022-05-20] MEDS: MICAFUNGIN SODIUM 100 MG in IV NS 0.9% 100 ML IV SCH (15:44)
[2022-05-20 15:48] LABS: RED BLOOD CELL COUNT(AUTO) 1.83 MIL/uL (4.5-6.0)
[2022-05-20 15:50] LABS: WHITE BLOOD COUNT (AUTO) 38.6 K/uL (4.3-11.0)
[2022-05-20 15:51] LABS: HEMATOCRIT 18 % (39-51); HEMOGLOBIN 5.7 g/dL (13.5-17.5)
--- NOTE | 2022-05-20 16:00 | NUR ---
CRITICAL LABS WBC 38.6 H/H 5.7/18. SUZY MACHINE REBUILDER NOTIFIED. ORDERS GIVEN FOR 1 UNITS PRBCS, CBC AFTER BLOOD INFUSED.
[2022-05-20] MEDS: Sodium Bicarbonate 150 MEQ in IV D5W 1,000 ML IV SCH (16:10)
--- NOTE | 2022-05-20 18:20 | NUR ---
END OF SHIFT NOTE: NO SIGNIFICANT CHANGES THIS SHIFT. VENT CHANGES O2 DOWN TO 40%, TV TO 400. JUANA-SYNEPHRINE CURRENTLY INFUSING AT 1.9 MCG/KG/MIN. NO CHANGES TO FENT OR VERSED GTTS. TPN AND BICARB GTT CONTINUES TO INFUSE PER MD ORDERS. 1 UNIT PRBCS PENDING FROM BLOOD BANK, NO READY OF THIS TIME, WILL ENDORSE TO HEALTH COMPANION. PT CHECKED ON HOURLY AND PRN BY NURSING STAFF.
[2022-05-20] MEDS ORDERED: TPN BAG #26 IV SCH ×4 (19:00)
--- NOTE | 2022-05-20 22:25 | NUR ---
GAMING HOST NOTES INITIATED BLOOD TRANSFUSION FOR PRIMARY RNJING. BASELINE V/S WNL. PRAMRY RN WILL FOLLOW THROUGH BLOOD TRANSFUSION UNTIL COMPLETION. GIS ADMINISTRATOR MADE AWARE.
[2022-05-20 22:46] LABS: BAND % (MANUAL) 10 % (0.0-5.0); EOSINOPHILS % (MANUAL) 3 % (0-4); LYMPHOCYTES % (MANUAL) 7 % (16-48); METAMYELOCYTES % 2 % (0-0); MONOCYTES % (MANUAL) 7 % (0-11.0); NEUTROPHILS % (MANUAL) 71 (42-76)
[2022-05-21] VITALS (97 sets, daily range): BP systolic 90–150; BP diastolic 54–104
[2022-05-21] MEDS: INSULIN REGULAR, HUMAN 100 UNIT/ML 3 ML VIAL SQ PRN ×4 (00:32→23:31)
[2022-05-21] MEDS: PHENYLEPHRINE 50 MG in IV NS 0.9% 245 ML IV PRN ×2 (01:15→13:49)
[2022-05-21] MEDS: MEROPENEM 500 MG in IV NS 0.9% 50 ML IV SCH ×2 (02:45→13:26)
[2022-05-21] MEDS: METOPROLOL TARTRATE INJ 5 MG/5 ML AMPUL IVP SCH ×3 (03:00→15:00)
[2022-05-21 04:45] LABS: BASOPHILS # (AUTO) 0.1 K/uL (0.0-0.2); BASOPHILS % (AUTO) 0.1 % (0.0-2.0); EOSINOPHILS % (AUTO) 1.8 % (0.0-6.0); HEMATOCRIT 23 % (39-51); HEMOGLOBIN 7.6 g/dL (13.5-17.5); LYMPHOCYTES # (AUTO) 0.9 K/uL (0.8-4.8); LYMPHOCYTES % (AUTO) 2.2 % (20.0-44.0); MEAN CORPUSCULAR HGB CONC 33 g/dl (31.0-36.0); MEAN CORPUSCULAR VOLUME 92 fL (80-96); MONOCYTES # (AUTO) 1.8 K/uL (0.1-1.30); MONOCYTES % (AUTO) 4.6 % (2.0-12.0); NEUTROPHILS # (AUTO) 36.5 K/uL (1.8-8.9); NEUTROPHILS % (AUTO) 91.3 % (43.0-81.0); PLATELET COUNT (AUTO) 128 K/uL (150-450); RED BLOOD CELL COUNT(AUTO) 2.54 MIL/uL (4.5-6.0)
[2022-05-21 04:56] LABS: CALCIUM, SERUM 7.9 mg/dL (8.5-10.1); MAGNESIUM 1.6 mg/dL (1.8-2.4); POTASSIUM 2.9 mmol/L (3.5-5.1)
[2022-05-21] MEDS ORDERED: TPN BAG #27 IV SCH ×2 (05:00)
[2022-05-21] MEDS: BLOOD SUGAR DIAGNOSTIC 1 EACH STRIP IN SCH ×5 (06:00→23:15)
--- NOTE | 2022-05-21 06:00 | NUR ---
1999--599--RECEIVED PT NON-VERBAL ON VENT VIA ETT. PT RICARDA WELL WITH POX OF 100-98%. PT RICARDA RTX AND SX WELL. IVS I/P VIA RIGHT ARM PICC-LINE(TLC). PT ALSO HAS RIGHT FEM. HD CATH WITH PIGTAIL. PT HAS VERSED, FENT AND NEOSYN. DRIP INFUSING WELL. BP WENT UP TO 150 SYST THEN DROPPED TO 95 SYST. BP HAS BEEN LABILE AT TIMES. LOPRESSOR MED HELD DUE TO LABILE BP. CN ED IS AWARE. PT ALSO HAS TPN@ 101CC/HR AND BICARB. DRIP @60CC/HR. PT HAS MULTIPLE DRAINS-LEFT G-TUBE DRAIN-HAS MOD AMT(DARK TORRES COLOR). RIGHT SIDE DRAIN HAD 50CC OUT(ALSO DARK TORRES). PT HAS F/C WITH 500CC U/O--URINE IS HEMATURIC. PT RECEIVED 1UPC EARLIER FOR HCT OF 5.7. PT RICARDA WELL WITH NO S/S OF RXN. PT IS CONTRACTED AND DOESN'T FOLLOW SIMPLE COMMDS. PT OPEN EYES SPONT-SCLERAE IS JAUNDICE. PT HAS SACRAL AND R/L DECUB DRSGS ARE D/I. AM LABS DONE. BATH AND AM CARE DONE. PT ALSO IS IN CONTACT ISOL. FOR URINE AND WOUNDS. PT ALSO HAS RECTAL TUBE WITH APPROX 100CC OUT(TUBE IRRIGATED-LEAKING AT TIMES). PT ENDORSED TO ADAM WHITEHEAD. GEN COND HAS BEEN STABLE BUT GUARDED. SHERLEY MEDINA
--- NOTE | 2022-05-21 07:30 | NUR ---
OPENING NOTE: REPORT RECEIVED FROM SHERLEY MEDINA. ORDERS AND LABS REVIEWED DURING REPORT. PER REPORT 1 UNIT OF PRBC'S GIVEN PER MD ORDERS. NA BICARB GTT, JUANA-SYNEPHRINE, TPN, FENTANYLM AND VERSED INFUSING PER MD ORDERS. PT CHECKED ON HOURLY AND PRN BY NURSING STAFF.
[2022-05-21] MEDS: MIDAZOLAM HCL 100 MG in IV NS 0.9% 80 ML IV PRN (09:24)
[2022-05-21] MEDS: FENTANYL CITRAT IV 2,500 MCG in IV NS 0.9% 200 ML IV PRN (09:24)
[2022-05-21 09:46] LABS: EOSINOPHILS % (MANUAL) 7 % (0-4); LYMPHOCYTES % (MANUAL) 4 % (16-48); MONOCYTES % (MANUAL) 5 % (0-11.0); NEUTROPHILS % (MANUAL) 84 (42-76)
[2022-05-21] MEDS: Sodium Bicarbonate 150 MEQ in IV D5W 1,000 ML IV SCH ×2 (11:16→23:15)
[2022-05-21] MEDS: DAKINS QUARTER STRENGTH (0.125%) 480 ML BOTTLE TOP SCH (11:17)
[2022-05-21] MEDS: THERAHONEY GEL 1.5 OZ TUBE TP SCH (11:17)
[2022-05-21] MEDS: METOCLOPRAMIDE HCL 10 MG/2 ML VIAL IV SCH ×3 (13:00→17:24)
[2022-05-21] MEDS: PANTOPRAZOLE 40 MG VIAL IV SCH ×2 (13:25→20:07)
[2022-05-21] MEDS: MICAFUNGIN SODIUM 100 MG in IV NS 0.9% 100 ML IV SCH (14:02)
[2022-05-21] MEDS ORDERED: TPN BAG #28 IV SCH ×4 (15:00)
[2022-05-21 16:46] LABS: D-DIMER 6.85 mg/L(FEU (0.17-0.50)
[2022-05-21] MEDS: Magnesium 1GM/D5W 100ML PREMIX 100 ML IV SCH ×2 (17:23→18:25)
[2022-05-21] MEDS ORDERED: Sodium Phosphate 30 MMOL in IV NS 0.9% 250 ML IV SCH (18:00)
--- NOTE | 2022-05-21 19:37 | NUR ---
END OF SHIFT NOTE: PT HAD HD TODAY, 1L OFF. JUANA-SYNEPHRINE CURRENTLY INFUSING AT 1MCG/KG/MIN, TITRATED PER MD ORDERS. FENTANYL, VERSED, NA BICARB AND TPN ALL INFUSING PER MD ORDERS. NO FAMILY CALLED OR VISITED TODAY. PT CHECKED ON HOURLY AND PRN BY NURSING STAFF.
[2022-05-21] MEDS: IV NS 0.9% 250 ML IV PRN (20:05)
--- NOTE | 2022-05-21 21:40 | NUR ---
CAREER CONSULTANT CALLED AND REQUESTED SHE BE CALLED WHEN PT WAKES UP; EDUCATED ON PTS STATUS AND SAID "OH CALL ME WHEN HE WAKES UP THEN."
--- NOTE | 2022-05-21 21:46 | NUR ---
OYSTER FLOATER MEDICAL RECEPTIONIST MEDICAL ASSISTANT AT BEDSIDE FOR MONCHO
[2022-05-21] MEDS ORDERED: SODIUM BICARBONATE SYR 50 MEQ/50 ML DISP.SYRIN ONE (22:47)
[2022-05-22] VITALS (84 sets, daily range): BP systolic 74–151; BP diastolic 44–94
[2022-05-22] MEDS ORDERED: TPN BAG #29 IV SCH ×2 (01:00)
[2022-05-22 04:53] LABS: BASOPHILS # (AUTO) 0.1 K/uL (0.0-0.2); BASOPHILS % (AUTO) 0.3 % (0.0-2.0); EOSINOPHILS % (AUTO) 1.8 % (0.0-6.0); HEMATOCRIT 21 % (39-51); LYMPHOCYTES # (AUTO) 0.7 K/uL (0.8-4.8); LYMPHOCYTES % (AUTO) 2.4 % (20.0-44.0); MEAN CORPUSCULAR HGB CONC 34 g/dl (31.0-36.0); MEAN CORPUSCULAR VOLUME 91 fL (80-96); MONOCYTES # (AUTO) 1.4 K/uL (0.1-1.30); NEUTROPHILS # (AUTO) 25.3 K/uL (1.8-8.9); NEUTROPHILS % (AUTO) 90.5 % (43.0-81.0); PLATELET COUNT (AUTO) 73 K/uL (150-450); RED BLOOD CELL COUNT(AUTO) 2.27 MIL/uL (4.5-6.0)
[2022-05-22 04:54] LABS: MAGNESIUM 1.7 mg/dL (1.8-2.4)
[2022-05-22 04:56] LABS: CALCIUM, SERUM 7.4 mg/dL (8.5-10.1); CREATININE 1.5 mg/dL (0.6-1.3)
[2022-05-22 04:58] LABS: ALBUMIN 0.5 g/dL (3.4-5.0)
[2022-05-22 05:12] LABS: D-DIMER 7.55 mg/L(FEU (0.17-0.50)
[2022-05-22 05:18] LABS: HEMOGLOBIN 6.9 g/dL (13.5-17.5)
[2022-05-22 05:19] LABS: POTASSIUM 2.4 mmol/L (3.5-5.1)
[2022-05-22] MEDS: BLOOD SUGAR DIAGNOSTIC 1 EACH STRIP IN SCH ×3 (05:57→17:13)
[2022-05-22 08:36] LABS: ABG OXYGEN SATURATION 96.7 % (92.0-98.5); ABG PCO2 39.5 mmHg (35.0-45.0); ABG PH 7.455 (7.350-7.450); ABG PO2 88.5 mmHg (75.0-100.0); AaDO2 151.3 mmHg; COHb 0.4 % (0.5-1.5); MetHb 0.1 % (0.0-1.5); O2Hb 96.2 % (94.0-97.0); PEEP,BG 0 cm H2O; SITE, ABG Left Radial; VT, ABG 400 mL
[2022-05-22] MEDS: Sodium Bicarbonate 150 MEQ in IV D5W 1,000 ML IV SCH (08:52)
--- NOTE | 2022-05-22 09:10 | NUR ---
RN/ICU PT IS IN BED VENT TRACH BREATHING EVENLY AND UNLABORED NO S/S OF RESPIRATORY DISTRESS. PT IS AFEBRILE, RECENTLY TITRATED OFF JUANA, BP IN THE LOW 90'S WILL BE MONITORING BP FOR REINSTITUTION. DIALYSIS IS SCHEDULED FOR TODAY MEDS WILL BE HELD TO PREVENT MEDS TO BE DIALYZED OUT. D5W+NAHCO3 RUNNING AT 100ML/H [place] RUNNING AT 3, FENTYNL @ 25 , TPN AT 100ML/H. GT DRAINAGE TUBE PATENT AND DRAINING, KNUTSON CATH PATENT AND DRAINING. PSOAS DRAIN NO DRAINAGE REORDERED, CHOLECYSTOMY PATENT AND DRAINING
[2022-05-22] MEDS: DAKINS QUARTER STRENGTH (0.125%) 480 ML BOTTLE TOP SCH (09:30)
[2022-05-22] MEDS: THERAHONEY GEL 1.5 OZ TUBE TP SCH (09:30)
[2022-05-22] MEDS: FENTANYL CITRAT IV 2,500 MCG in IV NS 0.9% 200 ML IV PRN (09:50)
[2022-05-22] MEDS: MIDAZOLAM HCL 100 MG in IV NS 0.9% 80 ML IV PRN (09:51)
[2022-05-22 10:35] LABS: BAND % (MANUAL) 12 % (0.0-5.0); BASOPHILS % (MANUAL) 0 % (0.0-2.0); EOSINOPHILS % (MANUAL) 1 % (0-4); LYMPHOCYTES % (MANUAL) 3 % (16-48); MONOCYTES % (MANUAL) 6 % (0-11.0); NEUTROPHILS % (MANUAL) 78 (42-76)
[2022-05-22] MEDS ORDERED: TPN BAG #30 IV SCH ×4 (11:00)
[2022-05-22] MEDS: METOCLOPRAMIDE HCL 10 MG/2 ML VIAL IV SCH ×3 (13:00→17:02)
[2022-05-22] MEDS: PANTOPRAZOLE 40 MG VIAL IV SCH ×2 (13:28→20:30)
[2022-05-22] MEDS: MEROPENEM 500 MG in IV NS 0.9% 50 ML IV SCH (13:29)
[2022-05-22] MEDS: IV NS 0.9% 1,000 ML IV PRN (13:54)
[2022-05-22] MEDS: VANCOMYCIN POST DIALYSIS 500MG IV PRN ×4 (14:16→16:11)
[2022-05-22] MEDS: Magnesium 1GM/D5W 100ML PREMIX 100 ML IV SCH ×2 (14:18→15:35)
[2022-05-22] MEDS: MICAFUNGIN SODIUM 100 MG in IV NS 0.9% 100 ML IV SCH (14:18)
[2022-05-22] MEDS: POTASSIUM CL. PREMIX PERIPHER. 50 ML IV SCH ×4 (17:02→20:30)
[2022-05-22] MEDS: INSULIN REGULAR, HUMAN 100 UNIT/ML 3 ML VIAL SQ PRN (17:30)
--- NOTE | 2022-05-22 17:34 | NUR ---
RT PATIENT REMAINS TRACHED ON [facility] VENT WITH ORDERED SETTINGS. ETT SECURE AND IN PROPER POSITION. AIRWAY SUCTIONED AND PATENT. PATIENT IN CRITICAL CONDITION. AMBU BAG AT [facility]. CONT CURRENT PLAN OF CARE. Addendum: 05/22/22 at 1735 by BRANDIE MEZA RT Amended: Links added.
--- NOTE | 2022-05-22 19:15 | NUR ---
SASH FINISHER SWELLING NOTED TO RIGHT EYE; OFFLOADED Addendum: 05/23/22 at 0030 by DAREN MERRITT RN SCLERA IS YELLOW
[2022-05-22] MEDS: PHENYLEPHRINE 50 MG in IV NS 0.9% 245 ML IV PRN (19:20)
--- NOTE | 2022-05-22 19:29 | NUR ---
RN/ICU PT IN BED BREATHING IS EVEN AND UNLABORED NO S/S OF RESPIRATORY DISTRESS. VITAL SIGNS WNL. PICC LINE IN PLACE NO S/S OF INFILTRATION HOB 45 DEGREES. Addendum: 05/22/22 at 1937 by SANDRA AYALA RN PT SUCTIONED NS @60 ML/HR, K+ RUNNING, AND JUANA RESTARTED AT 0.5 DOSE RATE
[2022-05-22] MEDS ORDERED: Sodium Phosphate 30 MMOL in IV NS 0.9% 250 ML IV SCH (21:00)
[2022-05-22] MEDS ORDERED: TPN BAG #31 IV SCH ×2 (21:00)
[2022-05-23] VITALS (51 sets, daily range): BP systolic 77–122; BP diastolic 42–79
[2022-05-23] MEDS: BLOOD SUGAR DIAGNOSTIC 1 EACH STRIP IN SCH ×5 (00:25→23:32)
[2022-05-23 03:59] LABS: BASOPHILS % (AUTO) 0.1 % (0.0-2.0); EOSINOPHILS % (AUTO) 1.1 % (0.0-6.0); HEMATOCRIT 25 % (39-51); HEMOGLOBIN 8.3 g/dL (13.5-17.5); LYMPHOCYTES # (AUTO) 0.4 K/uL (0.8-4.8); LYMPHOCYTES % (AUTO) 1.4 % (20.0-44.0); MEAN CORPUSCULAR HGB CONC 34 g/dl (31.0-36.0); MEAN CORPUSCULAR VOLUME 92 fL (80-96); MONOCYTES # (AUTO) 0.9 K/uL (0.1-1.30); MONOCYTES % (AUTO) 2.9 % (2.0-12.0); NEUTROPHILS # (AUTO) 28.8 K/uL (1.8-8.9); NEUTROPHILS % (AUTO) 94.5 % (43.0-81.0); RED BLOOD CELL COUNT(AUTO) 2.71 MIL/uL (4.5-6.0)
[2022-05-23 04:14] LABS: CALCIUM, SERUM 7.5 mg/dL (8.5-10.1); CREATININE 1.3 mg/dL (0.6-1.3); MAGNESIUM 1.9 mg/dL (1.8-2.4); PHOSPHORUS 2.9 mg/dL (2.5-4.9)
[2022-05-23 04:21] LABS: D-DIMER 7.28 mg/L(FEU (0.17-0.50)
[2022-05-23 04:25] LABS: PLATELET COUNT (AUTO) 45 K/uL (150-450); POTASSIUM 2.6 mmol/L (3.5-5.1); WHITE BLOOD COUNT (AUTO) 30.5 K/uL (4.3-11.0)
[2022-05-23 05:06] LABS: BAND % (MANUAL) 13 % (0.0-5.0); BASOPHILS % (MANUAL) 0 % (0.0-2.0); EOSINOPHILS % (MANUAL) 1 % (0-4); LYMPHOCYTES % (MANUAL) 9 % (16-48); MONOCYTES % (MANUAL) 6 % (0-11.0); NEUTROPHILS % (MANUAL) 71 (42-76)
[2022-05-23] MEDS: PANTOPRAZOLE 40 MG VIAL IV SCH ×2 (07:43→20:16)
--- NOTE | 2022-05-23 08:00 | NUR ---
RN NOTES PATIENT TRACHEA/VENT DEPENDENT, SETTINGS ARE AC-28,FIO2-40%, TV-400, AND PEEP-0, PATIENT HAS NO ACUTE RESPIRATORY DISTRESS,BEDSIDE MONITOR SHOWS HR-75, APPLIED BEAR HUGGER, PICC LINE INTACT ON RIGHT FEMORAL, AND HILDA INFUSING FENTANYL 25MCG/KG/MIN, VERSED 3MG/KG/HR, TPN @80ML/HR, NS@60ML/HR, AND TKO@10ML/HR. PATIENT HAS GENERALIZED EDEMA. 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 REVIEWED LAB VALUES. ASSIST TURN AND REPOSITION. WILL FOLLOW UP.
[2022-05-23] MEDS: MEROPENEM 500 MG in IV NS 0.9% 50 ML IV SCH (08:31)
[2022-05-23] MEDS: METOCLOPRAMIDE HCL 10 MG/2 ML VIAL IV SCH ×3 (08:43→17:14)
[2022-05-23] MEDS: DAKINS QUARTER STRENGTH (0.125%) 480 ML BOTTLE TOP SCH (08:44)
[2022-05-23] MEDS: THERAHONEY GEL 1.5 OZ TUBE TP SCH (08:45)
[2022-05-23] MEDS ORDERED: TPN BAG #32 IV SCH ×4 (09:00)
[2022-05-23] MEDS: MIDAZOLAM HCL 100 MG in IV NS 0.9% 80 ML IV PRN (10:00)
[2022-05-23] MEDS: FENTANYL CITRAT IV 2,500 MCG in IV NS 0.9% 200 ML IV PRN (10:12)
--- NOTE | 2022-05-23 10:40 | NUR ---
rn notes get microbiology lab for blood culture result BUDDING YEAST SEEN ON GRAM STAIN, hospitalist notified Dr. Bernardo. ................ ALSO SEE BLOOD CULTURE # [id number] Organism 1 FILEMON PARAPSILOSIS ONE BOTTLE OF SET * This is a corrected result. * A prior result that was reported as final has been changed. BLOOD CULTURE Final (changed) 05/22/22-1150 BUDDING YEAST SEEN ON GRAM STAIN ................ ALSO SEE BLOOD CULTURE # [id number] Organism 1 FILEMON PARAPSILOSIS ONE BOTTLE OF SET
[2022-05-23 12:58] LABS: HEMOGLOBIN 7.6 g/dL (13.5-17.5)
[2022-05-23] MEDS ORDERED: FAT EMULSION 20% 500 ML in PREMIX 1 EA IV PRN (13:00)
[2022-05-23] MEDS: IV NS 0.9% 1,000 ML IV PRN (13:11)
[2022-05-23] MEDS: IV NS 0.9% 250 ML IV PRN (13:12)
[2022-05-23] MEDS: MICAFUNGIN SODIUM 100 MG in IV NS 0.9% 100 ML IV SCH (13:19)
--- NOTE | 2022-05-23 13:33 | NUR ---
rn notes get lab critical albumin 0.4 , notified hospitalist Dr Mcginnis , and no new order. continue monitoring.
[2022-05-23 13:34] LABS: ALBUMIN 0.4 g/dL (3.4-5.0)
[2022-05-23 13:45] LABS: PREALBUMIN 10.2 MG/DL (18.0-35.7)
[2022-05-23] MEDS ORDERED: NEPRO 1,000 ML BOTTLE GT PRN (14:17)
--- NOTE | 2022-05-23 14:30 | NUR ---
rn notes get order per hospitalist Dr Mcginnis Start NG tube feeding, taper off TPN. patient Aspiration precaution, bs- 121 mg/dl.
--- NOTE | 2022-05-23 14:36 | NUR ---
rn notes started ngt feeding @50ml/hr 20 hr per order, titrated versed per protocol.
[2022-05-23] MEDS: QUETIAPINE FUMARATE 25 MG TABLET PO SCH ×2 (14:57→17:15)
[2022-05-23] MEDS: POTASSIUM CL. PREMIX PERIPHER. 50 ML IV SCH ×6 (14:57→22:12)
[2022-05-23] MEDS: PHENYLEPHRINE 50 MG in IV NS 0.9% 245 ML IV PRN (18:41)
--- NOTE | 2022-05-23 18:41 | NUR ---
rn notes Started norsynephrine at this time 0.5 mcg/kg/min, because of bp 78/49, p-102. patient has no acute respiratory distress, pm care done. suction, mouth care. running Nepro @50ml/hr , bs-100mg/dl, infusing fentanyl 25mcg/kg/min, NS @60ml/hr. urine output was 400ml, cholecystomy drain 100ml, psoas drained 0ml , flexiceal -0ml. assist turn and reposition q 2 hr. patient has draining perineal, and abdominal areas of blisters. keep hob elevated. endorsed oncoming nurse yvon.
[2022-05-23] MEDS ORDERED: TPN BAG #33 IV SCH ×8 (19:00→21:00)
--- NOTE | 2022-05-23 19:30 | NUR ---
HUMAN RESOURCE ADVISER OPENING NOTE RECEIVED PT IN BED CURRENTLY ON [facility] VENT/TRACH, BREATHING EVENLY AND UNLABORED. NO S/SX OF RESPIRATORY DISTRESS NOTED AT THIS TIME. HILDA PICC LINE NOTED RUNNING NS @ 60 CC/HR, JUANA @ 0.5 MCG/HR. R FEMORAL CATH NOTED INFUSING FENTANYL @ 25 MCG/KG/MIN. PT IS ON LIZ HUGGER, TEMP NOTED AT 97.4. BP IN THE LOW 90'S WILL BE MONITORING CLOSELY. GT DRAINAGE TUBE PATENT AND DRAINING, KNUTSON CATH PATENT AND DRAINING. PSOAS DRAIN NO DRAINAGE, CHOLECYSTOMY PATENT AND DRAINING, FLEXISEAL NOTED. WILL CONTINUE TO MONITOR PT.
--- NOTE | 2022-05-23 20:10 | NUR ---
RN NOTE NGT RESIDUAL IS AT 180 CC. STOPPED NGT FEEDING. WILL RESUME TPN.
[2022-05-23] MEDS: MEROPENEM 1 G in IV NS 0.9% 100 ML IV SCH (20:16)
--- NOTE | 2022-05-23 22:10 | NUR ---
RN NOTE NGT FEEDING RESUMED AT 20 CC/HR. RESIDUAL LESS THAN 50 CC.
[2022-05-23] MEDS: INSULIN REGULAR, HUMAN 100 UNIT/ML 3 ML VIAL SQ PRN (23:33)
[2022-05-24] VITALS (64 sets, daily range): BP systolic 81–112; BP diastolic 43–66
--- NOTE | 2022-05-24 02:15 | NUR ---
RN NOTE RESIDUAL OF 30 CC NOTED AT THIS TIME. INCREASED NGT FEEDING @ 30 CC/HR. WILL RECHECK AFTER 4 HRS.
[2022-05-24 04:38] LABS: BASOPHILS # (AUTO) 0.2 K/uL (0.0-0.2); BASOPHILS % (AUTO) 0.5 % (0.0-2.0); HEMATOCRIT 24 % (39-51); HEMOGLOBIN 7.3 g/dL (13.5-17.5); LYMPHOCYTES # (AUTO) 0.7 K/uL (0.8-4.8); LYMPHOCYTES % (AUTO) 2.2 % (20.0-44.0); MEAN CORPUSCULAR HGB CONC 31 g/dl (31.0-36.0); MEAN CORPUSCULAR VOLUME 100 fL (80-96); MONOCYTES % (AUTO) 3.4 % (2.0-12.0); NEUTROPHILS % (AUTO) 91.9 % (43.0-81.0); RED BLOOD CELL COUNT(AUTO) 2.34 MIL/uL (4.5-6.0); WHITE BLOOD COUNT (AUTO) 29.3 K/uL (4.3-11.0)
[2022-05-24 04:44] LABS: PLATELET COUNT (AUTO) 44 K/uL (150-450)
[2022-05-24] MEDS: IV NS 0.9% 1,000 ML IV PRN (04:48)
[2022-05-24 04:49] LABS: MAGNESIUM 1.6 mg/dL (1.8-2.4); PHOSPHORUS 2.7 mg/dL (2.5-4.9)
--- NOTE | 2022-05-24 05:05 | NUR ---
RN NOTE RECEIVED LAB REPORT FOR PLATELET: 44 CRUSHING MACHINE OPERATOR ABIMAEL MADE AWARE. NO NEW ORDER GIVEN.
[2022-05-24 05:15] LABS: BAND % (MANUAL) 9 % (0.0-5.0); BASOPHILS % (MANUAL) 0 % (0.0-2.0); EOSINOPHILS % (MANUAL) 1 % (0-4); LYMPHOCYTES % (MANUAL) 6 % (16-48); MONOCYTES % (MANUAL) 3 % (0-11.0); NEUTROPHILS % (MANUAL) 81 (42-76)
[2022-05-24] MEDS: BLOOD SUGAR DIAGNOSTIC 1 EACH STRIP IN SCH ×3 (05:28→18:07)
[2022-05-24] MEDS: INSULIN REGULAR, HUMAN 100 UNIT/ML 3 ML VIAL SQ PRN (05:29)
--- NOTE | 2022-05-24 06:19 | NUR ---
RN NOTE NO SIGNIFICANT CHANGE T/O THE NIGHT. PT TEMP WENT UP TO 98.1, LIZ HUGGER REMOVED. TPN RESUMED AT 100 CC/HR, NGT FEEDING RESTARTED GRADUALLY FROM 20 CC/HR TO 40 CC/HR AT THE MOMENT, <[address] ON TELE MONITOR. O2 SAT AT 90%. ALL SAFETY MEASURES IN PLACE. WILL ENDORSE TO AM SHIFT NURSE FOR HAMILTON.
[2022-05-24] MEDS ORDERED: TPN BAG #34 IV SCH ×2 (07:00)
[2022-05-24] MEDS: MEROPENEM 1 G in IV NS 0.9% 100 ML IV SCH ×2 (08:05→21:33)
[2022-05-24] MEDS: PANTOPRAZOLE 40 MG VIAL IV SCH ×2 (08:05→21:33)
[2022-05-24] MEDS: DAKINS QUARTER STRENGTH (0.125%) 480 ML BOTTLE TOP SCH (08:06)
[2022-05-24] MEDS: THERAHONEY GEL 1.5 OZ TUBE TP SCH (08:07)
[2022-05-24] MEDS ORDERED: QUETIAPINE FUMARATE 25 MG TABLET PO SCH (09:00)
[2022-05-24 10:11] LABS: CALCIUM, SERUM 7.7 mg/dL (8.5-10.1); CREATININE 1.5 mg/dL (0.6-1.3); POTASSIUM 3.4 mmol/L (3.5-5.1)
[2022-05-24] MEDS: METOCLOPRAMIDE HCL 10 MG/2 ML VIAL IV SCH ×2 (12:39→21:33)
[2022-05-24] MEDS: MICAFUNGIN SODIUM 100 MG in IV NS 0.9% 100 ML IV SCH (13:21)
[2022-05-24 15:47] LABS: ABG BASE EXCESS -3.4 mmol/L; ABG OXYGEN SATURATION 94.8 % (92.0-98.5); ABG PH 7.261 (7.350-7.450); ABG PO2 77.9 mmHg (75.0-100.0); AaDO2 216.7 mmHg; COHb 1.6 % (0.5-1.5); MetHb 0.1 % (0.0-1.5); O2Hb 93.2 % (94.0-97.0); SITE, ABG Left Radial
--- NOTE | 2022-05-24 18:02 | NUR ---
RT PATIENT REMAINS TRACHED ON [facility] VENT WITH ORDERED SETTINGS RICARDA WELL. VENT ALARMS CHECKED + AUDIBLE. TRACH SECURE AND PATENT. AMBU BAG AT HOB. CONT CURRENT PLAN CARE. Addendum: 05/24/22 at 1804 by BRANDIE MEZA RT Amended: Links added.
--- NOTE | 2022-05-24 20:39 | NUR ---
CRIMPER ASSEMBLER. INITIAL ASSESSMENT. RECEIVED THE PT REST IN BED, TRACH TO VENT CONNECTED. TIMBO#[id number]. AC 28, TV 400,FIO2 50%,PEEP 0. SAT 98%. NO ACUTE DISTRESS NOTED. TECHNICAL SUPPORT AGENT SHOWING NSR, IV RT FEN HD CATH, RT UPPER ARM PICC LINE, JUANA 0.1MCG/KG/MIN, HOB ELEVBATED. NGT INTACT. NEPRO 50 ML/H, FC PATENT. JAKE UPPER ABDOMEN CHOLECYSTOSTOMY CATH INTACT.HOB ELEVATED. TEMPERATURE 35. LIZ HUGGER PLACED. WILL CONTINUE TO MONITOR VITALS
[2022-05-24] MEDS: QUETIAPINE FUMARATE 25 MG TABLET PO SCH (21:00)
--- NOTE | 2022-05-24 21:59 | NUR ---
VP EMERGING MEDIA. SEROQUEL NOT GIVEN. RISK ASSESSMENT ANALYST ARYA MADE AWARE. NO GAG NO COUGH REFLEX.
[2022-05-25] VITALS (70 sets, daily range): BP systolic 81–123; BP diastolic 45–77
[2022-05-25] MEDS: BLOOD SUGAR DIAGNOSTIC 1 EACH STRIP IN SCH ×5 (01:46→23:31)
--- NOTE | 2022-05-25 03:00 | NUR ---
AM CARE GIVEN. REMAINING SAME VENT SETTING ON. HOB ELEVATED. NGT FEEDING NOT TOLERATED . FEEDING COMING FROM NGT, AROUND TRACH,AND NOSE. STOPPED FEEDING. JAKE DRAIN INTACT, PT IS VERY UNSTABLE, WILL CONTINUE TO MONITOR
[2022-05-25 03:59] LABS: BASOPHILS % (AUTO) 0.1 % (0.0-2.0); EOSINOPHILS % (AUTO) 1.1 % (0.0-6.0); HEMATOCRIT 24 % (39-51); HEMOGLOBIN 7.9 g/dL (13.5-17.5); LYMPHOCYTES # (AUTO) 0.4 K/uL (0.8-4.8); LYMPHOCYTES % (AUTO) 1.3 % (20.0-44.0); MEAN CORPUSCULAR HGB CONC 34 g/dl (31.0-36.0); MEAN CORPUSCULAR VOLUME 94 fL (80-96); MONOCYTES # (AUTO) 0.9 K/uL (0.1-1.30); MONOCYTES % (AUTO) 2.9 % (2.0-12.0); NEUTROPHILS # (AUTO) 30.2 K/uL (1.8-8.9); NEUTROPHILS % (AUTO) 94.6 % (43.0-81.0); RED BLOOD CELL COUNT(AUTO) 2.52 MIL/uL (4.5-6.0)
[2022-05-25 04:19] LABS: PLATELET COUNT (AUTO) 41 K/uL (150-450); WHITE BLOOD COUNT (AUTO) 31.9 K/uL (4.3-11.0)
[2022-05-25 04:41] LABS: CALCIUM, SERUM 8.3 mg/dL (8.5-10.1); CREATININE 1.3 mg/dL (0.6-1.3); MAGNESIUM 1.8 mg/dL (1.8-2.4); PHOSPHORUS 2.9 mg/dL (2.5-4.9); POTASSIUM 2.9 mmol/L (3.5-5.1)
[2022-05-25 05:39] LABS: D-DIMER 8.6 mg/L(FEU (0.17-0.50)
[2022-05-25 05:48] LABS: BAND % (MANUAL) 11 % (0.0-5.0); BASOPHILS % (MANUAL) 0 % (0.0-2.0); EOSINOPHILS % (MANUAL) 0 % (0-4); LYMPHOCYTES % (MANUAL) 5 % (16-48); MONOCYTES % (MANUAL) 1 % (0-11.0); NEUTROPHILS % (MANUAL) 83 (42-76)
[2022-05-25] MEDS: METOCLOPRAMIDE HCL 10 MG/2 ML VIAL IV SCH ×3 (06:33→21:01)
[2022-05-25] MEDS: DEXTROSE 50%-WATER 50 ML DISP.SYRIN IV PRN (06:44)
[2022-05-25] MEDS ORDERED: IV 10% DEXTROSE 1,000 ML IV SCH (07:00)
--- NOTE | 2022-05-25 07:03 | NUR ---
PT BLOOD SUGAR IS 48. D50 GIVEN.PT NOT TOLERATED FEEDING. MD MCINTOSH D10@ 40 ML/H. STARTED,
--- NOTE | 2022-05-25 07:28 | NUR ---
INVENTORY ADMINISTRATOR. RT SIDE DRAIN 100ML/ LT SIDE 0.
[2022-05-25] MEDS: MEROPENEM 1 G in IV NS 0.9% 100 ML IV SCH ×2 (08:33→21:12)
[2022-05-25] MEDS: PANTOPRAZOLE 40 MG VIAL IV SCH ×2 (08:34→21:01)
[2022-05-25] MEDS: IV NS 0.9% 250 ML IV PRN (08:34)
[2022-05-25] MEDS: DAKINS QUARTER STRENGTH (0.125%) 480 ML BOTTLE TOP SCH (08:35)
[2022-05-25] MEDS: THERAHONEY GEL 1.5 OZ TUBE TP SCH (08:35)
[2022-05-25] MEDS: QUETIAPINE FUMARATE 25 MG TABLET PO SCH ×2 (08:38→21:01)
[2022-05-25] MEDS: PHENYLEPHRINE 50 MG in IV NS 0.9% 245 ML IV PRN ×2 (09:51→21:58)
[2022-05-25] MEDS ORDERED: TPN/PPN PER PHARMACY XX PRN (12:00)
[2022-05-25] MEDS ORDERED: TPN BAG #1 IV SCH ×4 (12:00)
[2022-05-25] MEDS ORDERED: TPN/PPN PER PHARMACY IV PRN (12:00)
[2022-05-25] MEDS: VANCOMYCIN POST DIALYSIS 500MG IV PRN ×2 (12:13)
--- NOTE | 2022-05-25 12:35 | NUR ---
NOTIFIED RESP.THER. DEPT. REGARDING SPUTUM CX COLLECTION ORDER.
[2022-05-25] MEDS: MICAFUNGIN SODIUM 100 MG in IV NS 0.9% 100 ML IV SCH (14:33)
[2022-05-25] MEDS: POTASSIUM CL. PREMIX PERIPHER. 50 ML IV SCH ×4 (15:33→22:07)
--- NOTE | 2022-05-25 19:00 | NUR ---
TOTAL OUTPUT : RIGHT ABD DRAIN= 50ML LEFT SIDE DRAIN= 30ML
--- NOTE | 2022-05-25 19:38 | NUR ---
research agricultural engineer. initial assessment, received the pt rest in bed. IPAP/EPAP 24/8 , rate 22,fio2 40%. sat 99%. no acute distress noted. brewery representative showing S TACH. pt is very lethargic, pt responding name. hob elevated. IV RT AND LT HAND 20. IVF NS 100 ML/H. FC PATENT. URINE Draining. will continue to monitor vitals. Addendum: 05/25/22 at 2006 by LIBBY GARCIA RN WRONG PTS
--- NOTE | 2022-05-25 19:47 | NUR ---
EXHAUST AND MUFFLER REPAIRER. ABG DONE. PER MD MIN. NOTIFIED.
--- NOTE | 2022-05-25 20:19 | NUR ---
BULB BRANDER. INITIAL ASSESSMENT. RECEIVED THE PT REST IN BED. TRACH TO VENT CONNECTED, TRACH SHILEY#[id number], AC 28,TV 400,FIO2 50%,PEEP 0. SAT 95%, MANAGER HEMATOLOGY SHOWING S TACH. HOB ELEVATED. NGT AND GT INTACT. CLAMPED. LARGE AMOUNT OF SECREATION FROM MOUTH , NOSE, AND AROUND THE TRACH,IV RT UPPERARM PICC LINE. TPN 60 ML/H, FC PATENT, FLEXA SEAL INTACT. JAKE DRAIN INTACT. GENERALIZED EDEMA 4 +. MULTIPLE WOUND. PT IS CRITICAL.WILL CONTINUE TO MONITOR.
[2022-05-26] VITALS (65 sets, daily range): BP systolic 91–144; BP diastolic 47–81
--- NOTE | 2022-05-26 02:40 | NUR ---
horticultural farmer. am care given. remaining same vent settings on. sat 907%. front desk monitor showing s tach. IV RT upper arm picc line. TPN 60 ML/H JUANA 1.1 MCG/KG/MIN. FC PATENT. JAKE SURGICAL TUBE INTACT. HOB ELEVATED, TURN AND REPOSITION Q2H. WILL CONTINUE TO MONITOR VITALS.
[2022-05-26 04:10] LABS: BASOPHILS % (AUTO) 0.1 % (0.0-2.0); HEMATOCRIT 23 % (39-51); HEMOGLOBIN 7.7 g/dL (13.5-17.5); LYMPHOCYTES # (AUTO) 0.6 K/uL (0.8-4.8); LYMPHOCYTES % (AUTO) 2.4 % (20.0-44.0); MEAN CORPUSCULAR HGB CONC 33 g/dl (31.0-36.0); MEAN CORPUSCULAR VOLUME 94 fL (80-96); MONOCYTES # (AUTO) 1.2 K/uL (0.1-1.30); MONOCYTES % (AUTO) 4.9 % (2.0-12.0); NEUTROPHILS # (AUTO) 22.1 K/uL (1.8-8.9); NEUTROPHILS % (AUTO) 91.6 % (43.0-81.0); RED BLOOD CELL COUNT(AUTO) 2.48 MIL/uL (4.5-6.0); WHITE BLOOD COUNT (AUTO) 24.1 K/uL (4.3-11.0)
[2022-05-26 04:17] LABS: PLATELET COUNT (AUTO) 34 K/uL (150-450)
[2022-05-26 04:26] LABS: BILIRUBIN,TOTAL 7.1 mg/dL (0.2-1.0); CALCIUM, SERUM 9.2 mg/dL (8.5-10.1); CREATININE 1.6 mg/dL (0.6-1.3); MAGNESIUM 1.9 mg/dL (1.8-2.4); PHOSPHORUS 4.2 mg/dL (2.5-4.9); POTASSIUM 3.6 mmol/L (3.5-5.1); TOTAL PROTEIN, SERUM 5.8 g/dL (6.4-8.2)
[2022-05-26 04:31] LABS: D-DIMER 9.36 mg/L(FEU (0.17-0.50)
[2022-05-26 04:34] LABS: ALBUMIN 0.9 g/dL (3.4-5.0)
[2022-05-26] MEDS ORDERED: TPN BAG #2 IV SCH ×2 (04:50)
[2022-05-26 05:02] LABS: BAND % (MANUAL) 14 % (0.0-5.0); BASOPHILS % (MANUAL) 0 % (0.0-2.0); EOSINOPHILS % (MANUAL) 0 % (0-4); LYMPHOCYTES % (MANUAL) 2 % (16-48); MONOCYTES % (MANUAL) 5 % (0-11.0); NEUTROPHILS % (MANUAL) 79 (42-76)
[2022-05-26] MEDS: BLOOD SUGAR DIAGNOSTIC 1 EACH STRIP IN SCH ×3 (05:50→17:52)
[2022-05-26] MEDS: METOCLOPRAMIDE HCL 10 MG/2 ML VIAL IV SCH ×3 (05:51→20:30)
--- NOTE | 2022-05-26 07:30 | NUR ---
RN NOTES PT FOUND HIGH FOWLERS DISPLAYING NO S/S OF ACUTE DISTRESS, FLACC = 0 AND BILATERAL RISE AND FALL OF THE CHEST OBSERVED. PT STARTED NOSE BLEED OF R NARE. BLOOD APPEARS FROTHY AND BRIGHT RED.. 1X1 DIONNE APPLIED. THIS OCCURRED WHEN DR MCINTOSH WAS DOING ROUNDING. NGT CLAMPED. R UA PICC IS PATENT AND INTACT. GENERALIZED EDEMA AND WEEPING NOTED. DRAINAGE RESERVOIRS NOTED, RYAN AND URASIL. FLEXISEAL RESERVOIR BELOW PATIENT DRAINING BY GRAVITY. KNUTSON CATH RESERVOIR BELOW PATIENT DRAINING BY GRAVITY. RN WILL CONTINUE CARE PLAN AND ANTICIPATE NEEDS. SAFETY MEASURES IN PLACE, BED LOCKED AND IN LOWEST POSITION, SIDE RAILS UPX2, CALL LIGHT WITHIN REACH, BED ALARM ARMED.
[2022-05-26] MEDS: QUETIAPINE FUMARATE 25 MG TABLET PO SCH ×2 (08:41→21:00)
[2022-05-26] MEDS: PANTOPRAZOLE 40 MG VIAL IV SCH ×2 (08:41→20:30)
[2022-05-26] MEDS: MEROPENEM 1 G in IV NS 0.9% 100 ML IV SCH ×2 (08:41→20:30)
[2022-05-26] MEDS: DAKINS QUARTER STRENGTH (0.125%) 480 ML BOTTLE TOP SCH ×2 (08:42→20:49)
[2022-05-26] MEDS: THERAHONEY GEL 1.5 OZ TUBE TP SCH (08:42)
[2022-05-26] MEDS: HYDROCORTISONE SOD SUCCINATE 100 MG/2 ML VIAL IV SCH ×3 (11:11→20:30)
[2022-05-26] MEDS: PHENYLEPHRINE 50 MG in IV NS 0.9% 245 ML IV PRN (12:16)
--- NOTE | 2022-05-26 13:00 | NUR ---
NURSES NOTES DR GARCIA VISITED PT, PERFORMED ASSESSMENT. RN INFORMED MD OF BLOOD. MD GAVE ORDERS: LOW INTERMITTENT SUCTIONING OF NGT. RN ACKNOWLEDGED AND WILL EXECUTE ORDER.
[2022-05-26] MEDS: MICAFUNGIN SODIUM 100 MG in IV NS 0.9% 100 ML IV SCH (13:48)
[2022-05-26] MEDS: EPOETIN ALFA-EPBX 20,000 UNIT/ML VIAL SQ SCH (15:29)
[2022-05-26] MEDS ORDERED: TPN BAG #3 IV SCH ×4 (17:00)
--- NOTE | 2022-05-26 17:00 | NUR ---
RN NOTE RN GAVE SBAR AND REPORT TO ADAM OLIVER. ALL QUESTIONS ANSWERED.
--- NOTE | 2022-05-26 17:05 | NUR ---
BALLISTIC TECHNICIANYEAST STACKER OF CARE NOTE: PT. HANDED OVER FROM ADAM MCCONNELL AT 1700. REPORT GIVEN AT BEDSIDE. RECEIVED PATIENT IN BED, OBTUNDED. PT. ON TRACH, SHILEY XLT, WITH VENT SETTINGS AC-28 TV- 400, FIO2-50%, PEEP- 0, SATURATING AT 98%. PT. IS TACHYPNEIC, RR- 35 BPM. WEB PRODUCTION DESIGNER READS SINUS TACHYCARDIA, WITH HR OF 113 BPM. NO S/S OF DISTRESS NOTED. IV ACCESS ON HILDA PICC LINE, PATENT, INTACT. NO S/S OF INFILTRATION NOTED. WITH TPN @ 100 ML/HR, NEOSYNEPHRINE AT 1.1 MCG/KG/MIN. GTUBE PATENT AND INTACT, CONNECTED TO CATHETER BAG FOR DRAINAGE, RIGHT CHOLECYSTOSTOMY CONNECTED TO DRAINAGE BAG, LEFT PSOAS TUBING CONNECTED TO DRAINAGE BAG. FLEXISEAL PATENT INTACT WITH BROWN LIQUIDY STOOL NOTED IN BAG. KNUTSON CATHETER PATENT INTACT DRAINING WITH CLOUDY YELLOW COLORED URINE VIA GRAVITY. R FEMORAL HD CATH, PATENT. DIALYSIS ON GOING AT THIS TIME. PT. HAS R NARE NG TUBE, ON LOW INTERMITTENT SUCTION. MULTIPLE SKIN ISSUES NOTED. WILL DO WOUND TREATMENT ORDERED. SAFETY MEASURES IN PLACE: BED IN LOWEST POSITION, LOCKED. HOB ELEVATED AT 30 DEGREES. BED ALARM ON. CALL LIGHT WITHIN REACH. WILL REPOSITION PATIENT AT LEAST EVERY 2 HRS. WILL CONTINUE TO MONITOR PT. FOR ANY CHANGES.
--- NOTE | 2022-05-26 19:15 | NUR ---
MOTION PICTURE PRINTER CLOSING NOTE: PT. ON SAME VENT SETTINGS. NO S/S OF RESPIRATORY DISTRESS. HD FINISHED AT 1830 WITH OUTPUT OF 2 LITERS. PT. IS TACHYPNEIC, RR- 34 BPM. MACHINE TOOL DRESSER READS SINUS TACHYCARDIA, WITH HR OF 113 BPM. NO S/S OF DISTRESS NOTED. IV ACCESS ON HILDA PICC LINE, PATENT, INTACT. NO S/S OF INFILTRATION NOTED. WITH TPN @ 100 ML/HR, NEOSYNEPHRINE AT 1.1 MCG/KG/MIN. GTUBE PATENT AND INTACT, CLAMPED, RIGHT CHOLECYSTOSTOMY CONNECTED TO DRAINAGE BAG WITH OUTPUT OF 150ML, LEFT PSOAS TUBING CONNECTED TO DRAINAGE BAG, NO OUTPUT. FLEXISEAL PATENT INTACT WITH BROWN LIQUIDY STOOL TOTAL OUTPUT OF 100ML. KNUTSON CATHETER PATENT INTACT DRAINING WITH CLOUDY YELLOW COLORED URINE VIA GRAVITY, TOTAL OUTPUT OF 350 ML. R FEMORAL HD CATH, DRESSING C/D/I. PT. HAS R NARE NG TUBE, ON LOW INTERMITTENT SUCTION WITH PINKISH GASTRIC RESIDUAL NOTED. WOUND TREATMENT DONE ORDERED. SAFETY MEASURES MAINTAINED: BED IN LOWEST POSITION, LOCKED. HOB ELEVATED AT 30 DEGREES. BED ALARM ON. CALL LIGHT WITHIN REACH. TURNED AND REPOSITIONED PATIENT AT LEAST EVERY 2 HRS. ENDORSED CONTINUITY OF CARE TO HIRED HELP RN.
[2022-05-26] MEDS: VANCOMYCIN POST DIALYSIS 500MG IV PRN ×2 (23:25)
[2022-05-27] VITALS (34 sets, daily range): BP systolic 93–149; BP diastolic 48–83
[2022-05-27] MEDS: BLOOD SUGAR DIAGNOSTIC 1 EACH STRIP IN SCH ×5 (00:01→23:22)
[2022-05-27] MEDS: INSULIN REGULAR, HUMAN 100 UNIT/ML 3 ML VIAL SQ PRN ×5 (00:14→23:23)
[2022-05-27] MEDS ORDERED: TPN BAG #4 IV SCH ×2 (03:00)
[2022-05-27 04:10] LABS: CALCIUM, SERUM 9.9 mg/dL (8.5-10.1); CREATININE 1.8 mg/dL (0.6-1.3); MAGNESIUM 1.8 mg/dL (1.8-2.4); PHOSPHORUS 4.6 mg/dL (2.5-4.9); POTASSIUM 3.7 mmol/L (3.5-5.1)
[2022-05-27 04:12] LABS: BASOPHILS % (AUTO) 0.1 % (0.0-2.0); HEMATOCRIT 23 % (39-51); HEMOGLOBIN 7.4 g/dL (13.5-17.5); LYMPHOCYTES # (AUTO) 0.4 K/uL (0.8-4.8); LYMPHOCYTES % (AUTO) 2.3 % (20.0-44.0); MEAN CORPUSCULAR HGB CONC 33 g/dl (31.0-36.0); MEAN CORPUSCULAR VOLUME 94 fL (80-96); MONOCYTES # (AUTO) 0.5 K/uL (0.1-1.30); MONOCYTES % (AUTO) 2.5 % (2.0-12.0); NEUTROPHILS # (AUTO) 17.3 K/uL (1.8-8.9); NEUTROPHILS % (AUTO) 95.1 % (43.0-81.0); RED BLOOD CELL COUNT(AUTO) 2.39 MIL/uL (4.5-6.0); WHITE BLOOD COUNT (AUTO) 18.2 K/uL (4.3-11.0)
[2022-05-27 04:37] LABS: PLATELET COUNT (AUTO) 25 K/uL (150-450)
[2022-05-27] MEDS: HYDROCORTISONE SOD SUCCINATE 100 MG/2 ML VIAL IV SCH ×3 (05:08→21:15)
[2022-05-27] MEDS: METOCLOPRAMIDE HCL 10 MG/2 ML VIAL IV SCH ×3 (05:08→21:15)
--- NOTE | 2022-05-27 07:15 | NUR ---
LAMP DECORATOR OPENING NOTE: RECEIVED PATIENT IN BED, OBTUNDED. PT. ON TRACH, SHILEY XLT, WITH VENT SETTINGS AC-28 TV- 400, FIO2-50%, PEEP- 0, SATURATING AT 98%. PT. IS TACHYPNEIC, RR- 37 BPM. CANOE INSPECTOR FINAL READS SINUS TACHYCARDIA, WITH HR OF 115 BPM. NO S/S OF DISTRESS NOTED. IV ACCESS ON HILDA PICC LINE, PATENT, INTACT. NO S/S OF INFILTRATION NOTED. WITH TPN @ 100 ML/HR. GTUBE CLAMPED, RIGHT CHOLECYSTOSTOMY CONNECTED TO DRAINAGE BAG, LEFT PSOAS TUBING CONNECTED TO DRAINAGE BAG. FLEXISEAL PATENT INTACT WITH BROWN LIQUIDY STOOL NOTED IN BAG. KNUTSON CATHETER PATENT INTACT DRAINING WITH CLOUDY YELLOW COLORED URINE WITH SEDIMENTS VIA GRAVITY. R FEMORAL HD CATH NOTED, DRESSING C/D/I. PT. HAS R NARE NG TUBE, ON LOW INTERMITTENT SUCTION WITH PINKISH GASTRIC OUTPUT NOTED. MULTIPLE SKIN ISSUES NOTED. WILL DO WOUND TREATMENT ORDERED. SAFETY MEASURES IN PLACE: BED IN LOWEST POSITION, LOCKED. HOB ELEVATED AT 30 DEGREES. BED ALARM ON. CALL LIGHT WITHIN REACH. WILL REPOSITION PATIENT AT LEAST EVERY 2 HRS. WILL CONTINUE TO MONITOR PT. FOR ANY CHANGES.
[2022-05-27] MEDS: PANTOPRAZOLE 40 MG VIAL IV SCH ×2 (08:04→20:54)
[2022-05-27] MEDS: MEROPENEM 1 G in IV NS 0.9% 100 ML IV SCH ×2 (08:04→21:09)
[2022-05-27] MEDS: THERAHONEY GEL 1.5 OZ TUBE TP SCH (08:05)
[2022-05-27] MEDS: IV NS 0.9% 250 ML IV PRN (08:09)
[2022-05-27 08:53] LABS: BAND % (MANUAL) 6 % (0.0-5.0); LYMPHOCYTES % (MANUAL) 2 % (16-48); MONOCYTES % (MANUAL) 2 % (0-11.0); NEUTROPHILS % (MANUAL) 90 (42-76)
[2022-05-27] MEDS: QUETIAPINE FUMARATE 25 MG TABLET PO SCH ×2 (11:24→21:00)
[2022-05-27] MEDS ORDERED: TPN BAG 5 IV SCH ×8 (13:00)
[2022-05-27] MEDS: MICAFUNGIN SODIUM 100 MG in IV NS 0.9% 100 ML IV SCH (13:06)
--- NOTE | 2022-05-27 16:30 | NUR ---
RN NOTE PT TRANSFERRED FROM ICU UNIT TO ROOM 115-1 VIA HIS BED ACCOMPANIED BY BHUMI RN, AND KENROY RT AT 1630. PT IS OBTUNDED. BREATHING ON TRACH, SHILEY XLT, WITH VENT SETTINGS AC-28 TV- 400, FIO2-50%, PEEP- 0, SATURATING AT 97%. PT. IS TACHYPNEIC, RR- 45 BPM. VS: BP: 104/59. AXILLARY TEMP OF 98.7 F. PUBLIC FINANCE SPECIALIST READS SINUS TACHYCARDIA, WITH HR OF 120 BPM. IV ACCESS ON HILDA PICC LINE, PATENT, INTACT. NO S/S OF INFILTRATION NOTED RUNNING TPN @ 100 ML/HR. G-TUBE CLAMPED, RIGHT CHOLECYSTOSTOMY CONNECTED TO DRAINAGE BAG, LEFT PSOAS TUBING CONNECTED TO DRAINAGE BAG. FLEXISEAL PATENT INTACT WITH BROWN LIQUIDY STOOL NOTED IN BAG. KNUTSON CATHETER PATENT INTACT DRAINING WITH CLOUDY YELLOW COLORED URINE WITH SEDIMENTS VIA GRAVITY. R FEMORAL HD CATH NOTED, DRESSING C/D/I. PT. HAS R NARE NG TUBE, ON LOW INTERMITTENT SUCTION WITH PINKISH GASTRIC OUTPUT NOTED. MULTIPLE SKIN ISSUES NOTED. WILL CONTINUE WOUND TREATMENT ORDERED. ALL SAFETY MEASURES IN PLACE: BED LOCKED IN LOWEST POSITION. HOB ELEVATED AT 30 DEGREES. BED ALARM ON. CALL LIGHT WITHIN REACH. WILL CONTINUE TO MONITOR PATIENT THROUGHOUT SHIFT.
--- NOTE | 2022-05-27 16:45 | NUR ---
PLATE WORKERMOSAIC TILER NOTE: TRANSFERRED PT TO [facility] ROOM # 115-1 VIA HOSPITAL BED. REPORT GIVEN TO [facility] RNELLA AT BEDSIDE.PATIENT IN BED, OBTUNDED. PT. ON TRACH, SHILEY XLT, WITH VENT SETTINGS AC-28 TV- 400, FIO2-50%, PEEP- 0, SATURATING AT 99%. PT. IS TACHYPNEIC, RR- 32 BPM. AUTOMATIC FOLDER SEAMER READS SINUS TACHYCARDIA, WITH HR OF 115 BPM. NO S/S OF DISTRESS NOTED. IV ACCESS ON HILDA PICC LINE, PATENT, INTACT. NO S/S OF INFILTRATION NOTED. WITH TPN RUNNING @ 100 ML/HR. GTUBE CLAMPED, RIGHT CHOLECYSTOSTOMY OUTPUT OF 150 ML THIS SHIFT, LEFT PSOAS TUBING CONNECTED TO DRAINAGE BAG, NO OUTPUT NOTED. FLEXISEAL TOTAL OUTPUT OF 125ML BROWN LIQUIDY STOOL. KNUTSON CATHETER PATENT INTACT DRAINING WITH CLOUDY YELLOW COLORED URINE WITH SEDIMENTS, TOTAL OUTPUT OF 125 ML. R FEMORAL HD CATH DRESSING C/D/I. PT. HAS R NARE NG TUBE, ON LOW INTERMITTENT SUCTION WITH PINKISH GASTRIC OUTPUT OF 30 ML THIS SHIFT. WOUND TREATMENT DONE ORDERED. SAFETY MEASURES MAINTAINED: BED IN LOWEST POSITION, LOCKED. HOB ELEVATED AT 30 DEGREES. BED ALARM ON. CALL LIGHT WITHIN REACH. REPOSITIONED PATIENT AT LEAST EVERY 2 HRS. PT. MEDS AND CHART HANDED OVER AT BEDSIDE TO [facility] RN. ENDORSED CONTINUITY OF CARE.
[2022-05-27] MEDS: LORAZEPAM INJ 2 MG/ML VIAL IV PRN (17:38)
--- NOTE | 2022-05-27 19:20 | NUR ---
RN NOTE RECEIVED PT FOR CONTINUITY OF CARE. PATIENT A/OX0; OBTUNDED IN NO S/SX OF ACUTE DISTRESS AT THIS TIME; CURRENTLY ON MECHANICAL VENT; SETTING PRESCRIBED, WITH 02 SAT >95% AT THIS TIME. WITH IV ACCESS ON R UA PICC LINE PATENT, INTACT AND FLUSHING WELL. TPN RUNNING ORDERED. ALSO HAVE R FEM HD CATH INTACT. NGT ON R NARE CONNECTED TO LIS. WITH SECURED AND INTACT DRAINS ON THE FOLLOWING: R PERCUTANEOUS CHOLECYSTOTOMY ARGON DRAIN AND L PSOAS ABSCESS DRAIN; URESIL. ALSO HAVE KNUTSON CATH AND FELXISEAL BOTH DRAINING AND INTACT, WILL ENSURE SAFETY MEASURES WITHIN THE SHIFT. PATIENT BED ALARM IS ON. HEAD OF BED ELEVATED. BED IS LOCKED, IN LOWEST POSITION AND SIDE RAILS UP. CALL LIGHT WITHIN REACH OF THE PATIENT. APPLICABLE ISOLATION PRECAUTIONS IN PLACE. WILL CONTINUE TO MONITOR AND REASSESS FOR ANY CHANGES AND WILL CARRY OUT ANY ONGOING AND ACTIVE MD ORDER.
--- NOTE | 2022-05-27 19:38 | NUR ---
RN CLOSING NOTE PT IN BED OBTUNDED. BREATHING ON TRACH, SHILEY6 XLT, WITH VENT SETTINGS AC-28 TV- 400, FIO2-50%, PEEP- 0, SATURATING AT 97%. PMONITOR READS SINUS TACHYCARDIA, WITH HR OF 120 BPM. IV ACCESS ON HILDA PICC LINE, PATENT, INTACT. NO S/S OF INFILTRATION NOTED RUNNING TPN @ 100 ML/HR. G-TUBE CLAMPED, RIGHT CHOLECYSTOSTOMY CONNECTED TO DRAINAGE BAG, LEFT PSOAS TUBING CONNECTED TO DRAINAGE BAG. FLEXISEAL PATENT INTACT WITH BROWN LIQUIDY STOOL NOTED IN BAG. KNUTSON CATHETER PATENT INTACT DRAINING WITH CLOUDY YELLOW COLORED URINE WITH SEDIMENTS VIA GRAVITY. R FEMORAL HD CATH NOTED, DRESSING C/D/I. PT. HAS R NARES NG TUBE, ON LOW INTERMITTENT SUCTION WITH PINKISH GASTRIC OUTPUT NOTED. ALL SAFETY MEASURES IN PLACE: BED LOCKED IN LOWEST POSITION. HOB ELEVATED AT 30 DEGREES. BED ALARM ON. CALL LIGHT WITHIN REACH. WILL ENDORSE CONTINUITY OF CARE TO DIRECTOR PHONE NURSE.
--- NOTE | 2022-05-27 21:24 | NUR ---
RN NOTES HELD SCHEDULED SEROQUEL BASED ON NSG ASSESSMENT, PT OBTUNDED.
[2022-05-27] MEDS ORDERED: TPN BAG #6 IV SCH ×2 (23:00)
[2022-05-28] VITALS: BP 121/76
[2022-05-28 04:00] VITALS: BP 139/86
[2022-05-28] MEDS ORDERED: TPN BAG #9 IV SCH ×2 (05:00)
[2022-05-28] MEDS: HYDROCORTISONE SOD SUCCINATE 100 MG/2 ML VIAL IV SCH ×3 (05:20→20:54)
[2022-05-28] MEDS: METOCLOPRAMIDE HCL 10 MG/2 ML VIAL IV SCH ×3 (05:20→20:54)
[2022-05-28] MEDS: BLOOD SUGAR DIAGNOSTIC 1 EACH STRIP IN SCH ×3 (05:25→18:37)
[2022-05-28] MEDS: INSULIN REGULAR, HUMAN 100 UNIT/ML 3 ML VIAL SQ PRN ×2 (05:26→18:18)
--- NOTE | 2022-05-28 06:37 | NUR ---
RN CLOSING NOTE: PATIENT REMAINS IN ROOM IN NO SIGNS OF RESPIRATORY DISTRESS, PATIENT STILL ON MECH VENT; SETTINGS PRESCRIBED;TOLERATING WELL SATURATING @ >95% SP02. STILL ON NPO. SR-ST ON MONITOR DURING THE SHIFT. SAFETY MEASURES IMPLEMENTED, BED IN LOWEST POSITION, LOCKED, SIDE RAILS UP, CALL LIGHT WITHIN REACH. ALL NEEDS AND ORDERS ADDRESSED DURING THE SHIFT. IV ACCESS MAINTAINED INTACT, SECURED AND FLUSHING WELL. ALL DUE MEDS GIVEN ORDERED & SCHEDULED ; PATIENT TOLERATED WELL. TPN RUNNING ORDERED. ALL DRAINS INTACT AND SECURED, PLS REFER TO I&O SPREADSHEET FOR DETAILS. PATIENT KEPT CLEAN AND COMFORTABLE WITHIN THE SHIFT. PATIENT ENDORSED TO INCOMING SHIFT RN WITH STABLE VITAL SIGN AND FOR CONTINUITY OF CARE.
[2022-05-28 07:43] LABS: BASOPHILS # (AUTO) 0.1 K/uL (0.0-0.2); BASOPHILS % (AUTO) 0.7 % (0.0-2.0); HEMATOCRIT 25 % (39-51); HEMOGLOBIN 7.9 g/dL (13.5-17.5); LYMPHOCYTES # (AUTO) 0.5 K/uL (0.8-4.8); LYMPHOCYTES % (AUTO) 2.9 % (20.0-44.0); MEAN CORPUSCULAR HGB CONC 32 g/dl (31.0-36.0); MEAN CORPUSCULAR VOLUME 96 fL (80-96); MONOCYTES # (AUTO) 0.6 K/uL (0.1-1.30); MONOCYTES % (AUTO) 3.6 % (2.0-12.0); NEUTROPHILS # (AUTO) 14.4 K/uL (1.8-8.9); NEUTROPHILS % (AUTO) 92.8 % (43.0-81.0); RED BLOOD CELL COUNT(AUTO) 2.56 MIL/uL (4.5-6.0); WHITE BLOOD COUNT (AUTO) 15.5 K/uL (4.3-11.0)
[2022-05-28 07:54] LABS: PLATELET COUNT (AUTO) 29 K/uL (150-450)
[2022-05-28 08:00] VITALS: BP 144/76
--- NOTE | 2022-05-28 08:07 | NUR ---
RN NOTE RECEIVED PT IN BED, TRACH IN PLACE WITH VENT SETTINGS TOLERATING WELL. PT OBTUNDED. PT WITH GENERALIZED EDEMA. WITH KNUTSON AND FLEXISEAL IN PLACE DRAINING WELL. HILDA PICC LINE IN PLACE WITH TPN RUNNING @100/HR. PT ON NGT WITH LOW INTERMITTENT SUCTION, DRAINING BRIGHT RED BLOOD. CHOLECYSTOTOMY DRAIN AND L PSOAS ABSCESS DRAIN. SAFETY MAINTAINED WILL CONTINUE TO MONITOR.
[2022-05-28 08:23] LABS: CALCIUM, SERUM 10.1 mg/dL (8.5-10.1); CREATININE 2.1 mg/dL (0.6-1.3); MAGNESIUM 1.8 mg/dL (1.8-2.4); PHOSPHORUS 5.2 mg/dL (2.5-4.9); POTASSIUM 3.8 mmol/L (3.5-5.1)
[2022-05-28] MEDS ORDERED: TPN BAG #7 IV SCH ×4 (09:00)
[2022-05-28] MEDS: QUETIAPINE FUMARATE 25 MG TABLET PO SCH ×2 (09:00→20:56)
[2022-05-28] MEDS: PANTOPRAZOLE 40 MG VIAL IV SCH ×2 (09:19→20:38)
[2022-05-28] MEDS: MEROPENEM 1 G in IV NS 0.9% 100 ML IV SCH ×2 (09:34→20:54)
[2022-05-28] MEDS: DAKINS QUARTER STRENGTH (0.125%) 480 ML BOTTLE TOP SCH (09:35)
[2022-05-28] MEDS: THERAHONEY GEL 1.5 OZ TUBE TP SCH (09:35)
[2022-05-28] MEDS ORDERED: EPOETIN ALFA-EPBX 10,000 UNIT/ML VIAL SQ ONE (10:30)
[2022-05-28 12:00] VITALS: BP 134/71
[2022-05-28 12:26] LABS: LYMPHOCYTES % (MANUAL) 6 % (16-48); MONOCYTES % (MANUAL) 1 % (0-11.0); NEUTROPHILS % (MANUAL) 93 (42-76)
[2022-05-28] MEDS: MICAFUNGIN SODIUM 100 MG in IV NS 0.9% 100 ML IV SCH (14:25)
[2022-05-28 16:00] VITALS: BP 127/69
--- NOTE | 2022-05-28 18:58 | NUR ---
RN NOTE PT LYING IN BED, TRACH IN PLACE WITH VENT SETTINGS TOLERATING WELL. PT OBTUNDED. PT WITH GENERALIZED EDEMA. WITH KNUTSON AND FLEXISEAL IN PLACE DRAINING WELL. HILDA PICC LINE IN PLACE WITH TPN RUNNING @100/HR. PT ON NGT WITH LOW INTERMITTENT SUCTION, DRAINING BRIGHT RED BLOOD. CHOLECYSTOTOMY DRAIN AND L PSOAS ABSCESS DRAIN. DUE MEDICATIONS TAKEN, AM/PM CARE DONE. SAFETY MAINTAINED WILL CONTINUE TO MONITOR.
[2022-05-28] MEDS ORDERED: TPN BAG #8 IV SCH ×2 (19:00)
[2022-05-28 20:00] VITALS: BP 126/65
--- NOTE | 2022-05-28 20:56 | NUR ---
RN NOTES HELD SCHEDULED SEROQUEL BASED ON NSG ASSESSMENT, PT OBTUNDED NO SIGNS OF RESTLESSNESS.
[2022-05-29] VITALS: BP 116/64
[2022-05-29] MEDS: BLOOD SUGAR DIAGNOSTIC 1 EACH STRIP IN SCH ×4 (00:08→18:06)
[2022-05-29] MEDS: INSULIN REGULAR, HUMAN 100 UNIT/ML 3 ML VIAL SQ PRN ×4 (00:09→18:09)
[2022-05-29 04:00] VITALS: BP 114/61
[2022-05-29] MEDS ORDERED: TPN BAG #9 IV SCH ×2 (05:00)
[2022-05-29] MEDS: HYDROCORTISONE SOD SUCCINATE 100 MG/2 ML VIAL IV SCH ×3 (05:04→20:34)
[2022-05-29] MEDS: METOCLOPRAMIDE HCL 10 MG/2 ML VIAL IV SCH ×3 (05:05→20:34)
[2022-05-29 06:15] LABS: BASOPHILS # (AUTO) 0.1 K/uL (0.0-0.2); BASOPHILS % (AUTO) 0.4 % (0.0-2.0); HEMATOCRIT 26 % (39-51); HEMOGLOBIN 8.5 g/dL (13.5-17.5); LYMPHOCYTES # (AUTO) 0.5 K/uL (0.8-4.8); LYMPHOCYTES % (AUTO) 3.2 % (20.0-44.0); MEAN CORPUSCULAR HGB CONC 33 g/dl (31.0-36.0); MEAN CORPUSCULAR VOLUME 95 fL (80-96); MONOCYTES # (AUTO) 0.8 K/uL (0.1-1.30); MONOCYTES % (AUTO) 4.7 % (2.0-12.0); NEUTROPHILS # (AUTO) 15.1 K/uL (1.8-8.9); NEUTROPHILS % (AUTO) 91.7 % (43.0-81.0); RED BLOOD CELL COUNT(AUTO) 2.77 MIL/uL (4.5-6.0); WHITE BLOOD COUNT (AUTO) 16.5 K/uL (4.3-11.0)
[2022-05-29 06:30] LABS: PLATELET COUNT (AUTO) 28 K/uL (150-450)
--- NOTE | 2022-05-29 06:35 | NUR ---
RN CLOSING NOTE: PATIENT REMAINS IN ROOM IN NO SIGNS OF RESPIRATORY DISTRESS, PATIENT STILL ON MECH VENT; SETTINGS PRESCRIBED;TOLERATING WELL SATURATING @ >95% SP02. STILL ON NPO. SR ON MONITOR. WITH NOTED GENERALIZED EDEMA, WEEPING. SAFETY MEASURES IMPLEMENTED, BED IN LOWEST POSITION, LOCKED, SIDE RAILS UP, CALL LIGHT WITHIN REACH. ALL NEEDS AND ORDERS ADDRESSED DURING THE SHIFT. IV ACCESS MAINTAINED INTACT, SECURED AND FLUSHING WELL. ALL DUE MEDS GIVEN ORDERED & SCHEDULED ; PATIENT TOLERATED WELL. TPN RUNNING ORDERED. ALL DRAINS INTACT AND SECURED, PLS REFER TO I&O SPREADSHEET FOR DETAILS. PATIENT KEPT CLEAN AND COMFORTABLE WITHIN THE SHIFT. PATIENT ENDORSED TO INCOMING SHIFT RN WITH STABLE VITAL SIGN AND FOR CONTINUITY OF CARE.
[2022-05-29 07:00] LABS: BILIRUBIN,TOTAL 6.3 mg/dL (0.2-1.0); CALCIUM, SERUM 9.8 mg/dL (8.5-10.1); CREATININE 2.2 mg/dL (0.6-1.3); MAGNESIUM 1.7 mg/dL (1.8-2.4); POTASSIUM 3.6 mmol/L (3.5-5.1); TOTAL PROTEIN, SERUM 6.8 g/dL (6.4-8.2)
--- NOTE | 2022-05-29 07:10 | NUR ---
RN OPENING NOTE PT IS OBTUNDED. PT ON [facility] VENT; WITH ORDERED SETTINGS TOLERATING WELL AT 02 ABOVE >95% PT IS ON TELE MONITOR SINUS TEDDY/SINUS RHYTHM. PT HAS GENERALIZED EDEMA. PT HAS RIGHT UA PICC LINE. IV PATENT. TPN CURRENTLY RUNNING WITH ORDERED RATE. PT HAS KNUTSON CATHETER, FLEXI SEAL. ALL OTHER DRAINS INTACT AND SECURED. ALL SAFETY MEASURES IN PLACE. CALL LIGHT WITHIN REACH, BED LOCKED AT LOWEST POSITION. SIDE RAILS UP X2.
[2022-05-29 07:49] LABS: PHOSPHORUS 5.6 mg/dL (2.5-4.9)
[2022-05-29 08:00] VITALS: BP 105/66
[2022-05-29] MEDS ORDERED: Magnesium 1GM/D5W 100ML PREMIX 100 ML IV SCH (08:30)
[2022-05-29] MEDS: QUETIAPINE FUMARATE 25 MG TABLET PO SCH ×3 (09:00→20:44)
[2022-05-29] MEDS: DAKINS QUARTER STRENGTH (0.125%) 480 ML BOTTLE TOP SCH (09:00)
[2022-05-29] MEDS: PANTOPRAZOLE 40 MG VIAL IV SCH ×2 (09:19→20:34)
[2022-05-29] MEDS: MEROPENEM 1 G in IV NS 0.9% 100 ML IV SCH ×2 (09:19→20:35)
--- NOTE | 2022-05-29 09:34 | NUR ---
rn note notiifed nursing fitting room supervisor that picc is dislodged and if ok insert picc. said notify doc and get consent
--- NOTE | 2022-05-29 09:39 | NUR ---
rn note notified that picc line is dislodged. and if ok to insert picc line. said ok to order
--- NOTE | 2022-05-29 09:45 | NUR ---
rn note dr. portillo said ok for picc line. received telephone consent from patient's
--- NOTE | 2022-05-29 11:39 | NUR ---
rn note received blood culture results from [facility] from [facility]. blood culture results show yeast in the culture.pt has hx of yeast in blood culture
[2022-05-29 12:00] VITALS: BP 108/65
--- NOTE | 2022-05-29 12:39 | NUR ---
rn note notified pharmacy that pt blood sugar is 323. pharmacy said to give insulin coverage based on sliding scale
[2022-05-29] MEDS: THERAHONEY GEL 1.5 OZ TUBE TP SCH (14:14)
[2022-05-29] MEDS: MICAFUNGIN SODIUM 100 MG in IV NS 0.9% 100 ML IV SCH (14:19)
[2022-05-29] MEDS ORDERED: TPN BAG #10 IV SCH ×4 (15:00)
[2022-05-29 16:00] VITALS: BP 135/61
--- NOTE | 2022-05-29 17:30 | NUR ---
rn note called pharmacy to bring up yudi
--- NOTE | 2022-05-29 19:00 | NUR ---
rn note right upper arm picc line, has some bleeding but picc line intact, and flushes well
--- NOTE | 2022-05-29 19:05 | NUR ---
RN NOTE NOTIFIED JANET PADILLA THAT HGB IS 8.5, SEVERE BLEEDING FROM NOSE, MOUTH, BLEEDING IN SCLERA
--- NOTE | 2022-05-29 19:40 | NUR ---
RN OPENING NOTES: RECEIVED PT IN OBTUNDED. ON TRACH MECH VENT SETTINGS AND PT TOLERATING WELL. IV ACCESS ON HILDA PICC LINE NOTED WITH BLEEDING BUT STILL INTACT IN PLACE. TPN RUNNING ORDERED. RT FEMORAL HD CATH. NO FACIAL GRIMACING NOTED. NOTED WITH GENERALIZED EDEMA. KNUTSON CATHETER, FLEXI SEAL IN PLACE. MULTIPLE DRAINAGE BAGS INTACT AND SECURED. ALL SAFETY MEASURES IN PLACE. BED IN LOWEST POSITION AND LOCKED. SIDE RAILS UP X3, WILL CONTINUE TO MONITOR
[2022-05-29 20:00] VITALS: BP 100/60
--- NOTE | 2022-05-29 20:11 | NUR ---
RN CLOSING NOTE PT IS OBTUNDED. PT ON [facility] VENT; WITH ORDERED SETTINGS TOLERATING WELL AT 02 ABOVE >95% PT TELE MONITOR SINUS TEDDY/SINUS RHYTHM. PT HAS GENERALIZED EDEMA. PT HAS RIGHT UA PICC LINE INTACT AND PATENT. TPN CURRENTLY RUNNING WITH ORDERED RATE. PT HAS KNUTSON CATHETER, FLEXI SEAL. ALL OTHER DRAINS INTACT AND SECURED. CHANGED WOUND DRESSING. KEPT CLEAN AND DRY. ALL SAFETY MEASURES IN PLACE. CALL LIGHT WITHIN REACH, BED LOCKED AT LOWEST POSITION. SIDE RAILS UP X2.
--- NOTE | 2022-05-29 20:46 | NUR ---
RN NOTES: SEROQUEL 50 MG MISTAKENLY TOOK OUT FROM [facility] CELL AND CRUSHED. WASTED THE MEDICATION.
--- NOTE | 2022-05-29 21:00 | NUR ---
RN NOTES: UNABLE TO CHECK TEMP. APPLIED LIZ HUGGER. WILL CONTINUE TO MONITOR
[2022-05-30] VITALS (31 sets, daily range): BP systolic 85–136; BP diastolic 40–70
[2022-05-30] MEDS: BLOOD SUGAR DIAGNOSTIC 1 EACH STRIP IN SCH ×4 (00:20→17:19)
[2022-05-30] MEDS: INSULIN REGULAR, HUMAN 100 UNIT/ML 3 ML VIAL SQ PRN ×3 (00:23→17:32)
[2022-05-30] MEDS ORDERED: TPN BAG #11 IV SCH ×2 (01:00)
[2022-05-30] MEDS: HYDROCORTISONE SOD SUCCINATE 100 MG/2 ML VIAL IV SCH ×4 (05:10→21:58)
[2022-05-30] MEDS: METOCLOPRAMIDE HCL 10 MG/2 ML VIAL IV SCH ×3 (05:10→21:58)
--- NOTE | 2022-05-30 06:36 | NUR ---
RN CLOSING NOTES: PT IN OBTUNDED. ON TRACH MECH VENT SETTINGS AND PT TOLERATING WELL. IV ACCESS ON HILDA PICC LINE, STILL NOTED BLEEDING BUT IN PLACE. TPN RUNNING 100 CC/HR ORDERED. RT FEMORAL HD CATH IN PLACE. NO FACIAL GRIMACING NOTED. NOTED WITH GENERALIZED EDEMA. KNUTSON CATHETER, FLEXI SEAL IN PLACE. MULTIPLE DRAINAGE BAGS INTACT AND SECURED. ALL DUE MEDS GIVEN ORDERED. ALL SAFETY MEASURES IN PLACE. BED IN LOWEST POSITION AND LOCKED. SIDE RAILS UP X3, WILL ENDORSE TO MORNING SHIFT NURSE.
--- NOTE | 2022-05-30 06:40 | NUR ---
RN NOTES: PT'S BLOOD SUGAR 192. 3 UNITS GIVEN ORDERED. NO S/S OF HYPER/HYPOGLYCEMIA. WILL CONTINUE TO MONITOR
--- NOTE | 2022-05-30 07:19 | NUR ---
RN OPENING NOTES: RECEIVED PT IN OBTUNDED. ON TRACH MECH VENT SETTINGS AND PT TOLERATING WELL. RESPIRATION IS LABORED ON VENT ORDERED,WITH EXCESSIVE SECRETIONS SUCTIONING DONE.IV ACCESS ON HILDA PICC LINE NOTED WITH BLEEDING BUT STILL INTACT IN PLACE. TPN RUNNING ORDERED. RT FEMORAL HD CATH. NO FACIAL GRIMACING NOTED. NOTED WITH GENERALIZED EDEMA. KNUTSON CATHETER, FLEXI SEAL IN PLACE. MULTIPLE DRAINAGE BAGS INTACT AND SECURED. ALL SAFETY MEASURES IN PLACE. BED IN LOWEST POSITION AND LOCKED. SIDE RAILS UP X3, WILL CONTINUE TO MONITOR
[2022-05-30] MEDS: MEROPENEM 1 G in IV NS 0.9% 100 ML IV SCH ×2 (08:26→22:01)
[2022-05-30] MEDS: PANTOPRAZOLE 40 MG VIAL IV SCH ×2 (08:26→21:58)
[2022-05-30] MEDS: LORAZEPAM INJ 2 MG/ML VIAL IV PRN (08:26)
[2022-05-30] MEDS: THERAHONEY GEL 1.5 OZ TUBE TP SCH (09:00)
[2022-05-30] MEDS: DAKINS QUARTER STRENGTH (0.125%) 480 ML BOTTLE TOP SCH (09:00)
[2022-05-30] MEDS: QUETIAPINE FUMARATE 25 MG TABLET PO SCH ×2 (09:00→21:00)
--- NOTE | 2022-05-30 09:00 | NUR ---
RN notes: noted a lot of blood at picc line dressing dressing changed and wrapped with kerlex, will monitor
[2022-05-30] MEDS ORDERED: TPN BAG #12 IV SCH ×4 (11:00)
[2022-05-30 11:12] LABS: ABG BASE EXCESS -12.7 mmol/L; ABG OXYGEN SATURATION 98.1 % (92.0-98.5); ABG PCO2 56.4 mmHg (35.0-45.0); ABG PH 7.086 (7.350-7.450); ABG PO2 127.5 mmHg (75.0-100.0); AaDO2 529.1 mmHg; COHb 0.8 % (0.5-1.5); MetHb 0.3 % (0.0-1.5); SITE, ABG Right Radial; VENT MODE, BG AC 28 400 +0 100%
--- NOTE | 2022-05-30 11:20 | NUR ---
RN NOTES: AT 1050 NOTED WITH LABORED BREATHING AND EXCESSIVE BLEEDING OF RIGHT UPPER ARM PICC LINE, BP 85/40 INCREASE 02 TO 100% O2 SAT 90%,,ALSO SUCTIONIG BLOOD,NGT CONNECTED TO SUCTION IS SUCTIONING BLOOD. INITIATED RAPID RESPONSE CALLED DR JANET ULLOA WITH ORDER TO TRANSFER TO ICU, TRANSFERRED TO ICU, REPORT GIVEN TO HONEY MEDINA
[2022-05-30 12:03] LABS: CALCIUM, SERUM 9.5 mg/dL (8.5-10.1); CREATININE 2.1 mg/dL (0.6-1.3); MAGNESIUM 1.7 mg/dL (1.8-2.4); PHOSPHORUS 4.8 mg/dL (2.5-4.9); POTASSIUM 3.2 mmol/L (3.5-5.1)
[2022-05-30 12:04] LABS: BASOPHILS # (AUTO) 0.1 K/uL (0.0-0.2); BASOPHILS % (AUTO) 0.2 % (0.0-2.0); HEMATOCRIT 24 % (39-51); HEMOGLOBIN 7.6 g/dL (13.5-17.5); LYMPHOCYTES # (AUTO) 0.6 K/uL (0.8-4.8); LYMPHOCYTES % (AUTO) 2.1 % (20.0-44.0); MEAN CORPUSCULAR HGB CONC 31 g/dl (31.0-36.0); MEAN CORPUSCULAR VOLUME 96 fL (80-96); NEUTROPHILS # (AUTO) 25.9 K/uL (1.8-8.9); NEUTROPHILS % (AUTO) 90.7 % (43.0-81.0); RED BLOOD CELL COUNT(AUTO) 2.51 MIL/uL (4.5-6.0); WHITE BLOOD COUNT (AUTO) 28.6 K/uL (4.3-11.0)
--- NOTE | 2022-05-30 12:05 | NUR ---
ICU/RN PT IS TRANSFERRED POST SOFT TILE SETTER TO ICU.PT IS CHRONIC TACH ON THE VENT AC MODE.PLACED TO 100% FIO2.PT HAS BLEEDING FROM THE TRACHEOSTOMY,FROM PICC LINE SIDE AND MOUTH , PRESSURE DRESSING APPLIED .PT HAS RIGHT FEMORAL HD CATHETER WITH PICC TAIL.GENERALIZED EDEMA PRESENT.MULTIPLY WOUNDS AND SKIN TEARS NOTED ALL OVER THE BODY. F/C IN PLACE WITH MINIMAL AMOUNT OF URINE.RECTAL TUBE DRAINING WITH YELLOW LIQUID STOOL.LABS REVIEW. PLT-27. MD NOTIFIED.WOUND DRESSING DONE ORDERED.REPOSITION FOR COMFORT.CONTINUE MONITORING,
[2022-05-30 12:35] LABS: PLATELET COUNT (AUTO) 27 K/uL (150-450)
[2022-05-30 12:50] LABS: BAND % (MANUAL) 14 % (0.0-5.0); LYMPHOCYTES % (MANUAL) 4 % (16-48); METAMYELOCYTES % 1 % (0-0); MONOCYTES % (MANUAL) 6 % (0-11.0); MYELOCYTES % 1 % (0-0); NEUTROPHILS % (MANUAL) 74 (42-76)
[2022-05-30] MEDS: MICAFUNGIN SODIUM 100 MG in IV NS 0.9% 100 ML IV SCH (13:38)
[2022-05-30] MEDS: NOREPINEPHRINE 8 MG in IV NS 0.9% 242 ML IV PRN ×2 (13:50→23:21)
--- NOTE | 2022-05-30 14:09 | NUR ---
ICU/RN BP DECREASED.LEVOPHED DRIP STARTED ORDERED.
[2022-05-30] MEDS ORDERED: PHYTONADIONE INJ 10 MG/1 ML AMPUL SQ ONE (15:00)
[2022-05-30 16:09] LABS: HEMOGLOBIN 7.4 g/dL (13.5-17.5)
[2022-05-30] MEDS: Sodium Bicarbonate 100 MEQ in IV D5 / 0.2% NACL 1,000 ML IV SCH (17:09)
[2022-05-30] MEDS: PROPOFOL 100 ML IV PRN ×2 (17:10→23:20)
[2022-05-30] MEDS: Magnesium 1GM/D5W 100ML PREMIX 100 ML IV SCH ×2 (17:19→18:19)
[2022-05-30 17:20] LABS: D-DIMER 22.74 mg/L(FEU (0.17-0.50)
--- NOTE | 2022-05-30 17:52 | NUR ---
RN NOTES STARTED BLOOD TRANSFUSION 1 UNIT PRBC BY HEMODIALYSIS NURSE. V/S TAKEN AND RECORDED AND WITH NORMAL LIMITS.
--- NOTE | 2022-05-30 19:05 | NUR ---
RN OPENING NOTES RECEIVED PATIENT ON BED, SEDATED. PT. ON TRACH, WITH VENT SETTINGS AC-28, TV- 400, FIO2-40%, PEEP- 0, SATING AT 96%. AFEBRILE, NO S/S OF DISTRESS NOTED. PATIENT NOTED WITH GENERALIZED EDMA, BLEEDING FROM TRACHEOSTOMY, PICC LINE SITE, AND MOUTH. MULTIPLE WOUND ALL OVER THE BODY. WITH HILDA PICC LINE, PATENT, INTACT, FLUSHED WITH NS. NO S/S OF INFILTRATION NOTED. WITH TPN @ 100 ML/HR, BICARD @ 50 ML/HR, LEVO @ 0.2 MCG/KG/MIN AND PROPOFOL @ 30 MCG/KG/MIN. RIGHT FEMORAL HD SITE. GTUBE CLAMPED, RIGHT CHOLECYSTOSTOMY CONNECTED TO DRAINAGE BAG, LEFT PSOAS DRAIN CONNECTED TO DRAINAGE BAG. FLEXISEAL PATENT INTACT WITH YELLOW LIQUID STOOL. KNUTSON CATHETER PATENT INTACT DRAINING WITH SCANTY URINE OUTPUT VIA GRAVITY. REPOSITION PATIENT EVERY 2 HRS. ALL SAFETY PRECAUTION PROVIDED, BED IN LOWEST POSITION, LOCKED. BED ALARM ARMED. CALL LIGHT WITH IN REACH. CONTINUE TO MONITOR.
--- NOTE | 2022-05-30 19:15 | NUR ---
RN NOTES HD STARTED, V/S WITH IN NORMAL LIMITS
[2022-05-30] MEDS ORDERED: POTASSIUM CHLORIDE 20 MEQ TAB.PRT.SR PO SCH (20:00)
[2022-05-30] MEDS ORDERED: POTASSIUM CL. PREMIX PERIPHER. 50 ML IV SCH (20:00)
[2022-05-30] MEDS ORDERED: TPN BAG #13 IV SCH ×2 (21:00)
--- NOTE | 2022-05-30 21:00 | NUR ---
RN NOTES BLOOD TRANSFUSION END, NO S/S OF ADVERSE REACTION NOTED. TEMP- 97.8, P- 109, RR- 28, BP- 136/60.
--- NOTE | 2022-05-30 21:30 | NUR ---
RN NOTES HD DONE WITH 1160ML OUTPUT, PATIENT STABLE. V/S TAKEN AND RECORDED.
--- NOTE | 2022-05-30 23:43 | NUR ---
rt called to pt bedside at approximately 2315. pt spo2 measuring below 80% with good wive form. pt placed on 100%. spo2 increased to 98%. pt suctioned and lavaged. suctioned a large amount of blood. pt remains on 100% fio2 at this time spo2 98% Addendum: 05/30/22 at 2346 by WINDY MCCRAY RT Amended: Links added.
--- NOTE | 2022-05-30 23:45 | NUR ---
STOCKROOM WORKERDISHROOM ATTENDANT FIXTURE RELAMPER TALKED TO NEXT OF KIN MATTHEW PERRY, SON /[phone]/ UPDATED PT'S CONDITION & PROGNOSIS.FAMILY AGREED TO PLACE PT ON DNR CODE. RADHA SÁNCHEZ WAS NOTIFIED, ORDER COSIGNED BY ADAM HELMS.
[2022-05-31] VITALS (98 sets, daily range): BP systolic 80–146; BP diastolic 29–84
[2022-05-31] MEDS: BLOOD SUGAR DIAGNOSTIC 1 EACH STRIP IN SCH ×5 (00:24→23:55)
[2022-05-31] MEDS: INSULIN REGULAR, HUMAN 100 UNIT/ML 3 ML VIAL SQ PRN ×5 (00:27→23:57)
[2022-05-31] MEDS: METOCLOPRAMIDE HCL 10 MG/2 ML VIAL IV SCH ×3 (05:03→21:11)
[2022-05-31] MEDS: HYDROCORTISONE SOD SUCCINATE 100 MG/2 ML VIAL IV SCH ×3 (05:03→21:11)
[2022-05-31 05:18] LABS: BASOPHILS # (AUTO) 0.3 K/uL (0.0-0.2); BASOPHILS % (AUTO) 0.7 % (0.0-2.0); HEMATOCRIT 26 % (39-51); HEMOGLOBIN 8.3 g/dL (13.5-17.5); LYMPHOCYTES # (AUTO) 0.5 K/uL (0.8-4.8); LYMPHOCYTES % (AUTO) 1.2 % (20.0-44.0); MEAN CORPUSCULAR HGB CONC 32 g/dl (31.0-36.0); MEAN CORPUSCULAR VOLUME 94 fL (80-96); MONOCYTES # (AUTO) 1.6 K/uL (0.1-1.30); MONOCYTES % (AUTO) 3.6 % (2.0-12.0); NEUTROPHILS # (AUTO) 41.5 K/uL (1.8-8.9); NEUTROPHILS % (AUTO) 94.5 % (43.0-81.0); RED BLOOD CELL COUNT(AUTO) 2.72 MIL/uL (4.5-6.0)
[2022-05-31 05:23] LABS: CALCIUM, SERUM 8.6 mg/dL (8.5-10.1); CREATININE 1.5 mg/dL (0.6-1.3); MAGNESIUM 1.9 mg/dL (1.8-2.4); PHOSPHORUS 3.3 mg/dL (2.5-4.9)
[2022-05-31 05:26] LABS: PLATELET COUNT (AUTO) 30 K/uL (150-450)
[2022-05-31 05:28] LABS: POTASSIUM 2.5 mmol/L (3.5-5.1)
--- NOTE | 2022-05-31 06:00 | NUR ---
RN NOTES NOTIFIED CHATA SÁNCHEZ REGARDING PATIENT LATEST, WBC-44, PALATELETS 30, POTASSIUM 2.5 WITH NEW ORDER POTASSIUM 40MEQ IV NOTED AND CARRIED OUT.
[2022-05-31] MEDS: POTASSIUM CL. PREMIX PERIPHER. 50 ML IV SCH ×6 (06:29→21:54)
[2022-05-31] MEDS: PROPOFOL 100 ML IV PRN ×2 (06:32→22:01)
[2022-05-31] MEDS ORDERED: TPN BAG #14 IV SCH ×2 (07:00)
--- NOTE | 2022-05-31 07:00 | NUR ---
RN NOTES RECEIVED PT ON BED, TRACH / VENT DEPENDENT, FIO2 %100 , O2 SAT WNL, TRACH CARE DONE, ON TELE SR-ST, IV SITE CDI, PT ON BICARB DRIP AT 50CC/HR , LEVO AT .2 MCG/KG/MIN, DIPRIVAN AT 30 MCG/KG/MIN AND TPN AT 98.912 CC/HR RUNNING . SR UP x3, CALL LIGHT WITHIN EASY REACH , BED LOCKED AND IN LOWEST POSITION CONTINUE TO MONITOR.
[2022-05-31] MEDS: NOREPINEPHRINE 8 MG in IV NS 0.9% 242 ML IV PRN ×3 (07:28→15:46)
[2022-05-31] MEDS: PANTOPRAZOLE 40 MG VIAL IV SCH ×2 (07:40→21:11)
[2022-05-31] MEDS: QUETIAPINE FUMARATE 25 MG TABLET PO SCH ×2 (08:25→21:00)
--- NOTE | 2022-05-31 08:26 | NUR ---
RN NOTES PT ON DIPRIVAN , SEDATED, SEROQUEL HELD PER MD ORDER .
[2022-05-31] MEDS: MEROPENEM 1 G in IV NS 0.9% 100 ML IV SCH ×2 (08:27→21:17)
[2022-05-31] MEDS: DAKINS QUARTER STRENGTH (0.125%) 480 ML BOTTLE TOP SCH (08:29)
[2022-05-31] MEDS: THERAHONEY GEL 1.5 OZ TUBE TP SCH (08:30)
[2022-05-31] MEDS ORDERED: MORPHINE SULFATE INJ 2 MG/ML DISP.SYRIN IVP STA (08:39)
[2022-05-31 08:45] LABS: ABG BASE EXCESS -2.7 mmol/L; ABG OXYGEN SATURATION 92.5 % (92.0-98.5); ABG PCO2 68.5 mmHg (35.0-45.0); ABG PH 7.194 (7.350-7.450); ABG PO2 69.5 mmHg (75.0-100.0); COHb 0.4 % (0.5-1.5); MetHb 0.6 % (0.0-1.5); O2Hb 91.6 % (94.0-97.0); SITE, ABG Other
--- NOTE | 2022-05-31 09:00 | NUR ---
RN NOTES NO SEDATION VACATION PER DR OTERO ORDER .
--- NOTE | 2022-05-31 09:00 | NUR ---
RN NOTES MODERATED AMOUNT OF BLOODY DRAINAGE NOTED , FORM PT MOUTH AND NOSE, DR OTERO NOTIFED, PT IS DNR PER FAMILY REQUEST . CONTINUE TO MONITOR .
--- NOTE | 2022-05-31 09:25 | NUR ---
RT PATIENT REC'D TRACHED ON MECH VENT WITH ORDERED SETTINGS. PER DR OTERO VT LOWERED TO 375. PATIENT IN CRITICAL CONDITION. TRACH SUCTIONED WITH LARGE AMOUNT OF BRIGHT RED BLOOD. PEAK PRESSURES ON MECH VENT ARE 90. DR OTERO AWARE. Addendum: 05/31/22 at 0927 by BRANDIE MEZA RT Amended: Links added.
[2022-05-31] MEDS ORDERED: SILVER NITRATE APPLICATOR 1 EA BOX TP PRN (09:56)
[2022-05-31 11:40] LABS: BAND % (MANUAL) 20 % (0.0-5.0); LYMPHOCYTES % (MANUAL) 4 % (16-48); METAMYELOCYTES % 1 % (0-0); MONOCYTES % (MANUAL) 5 % (0-11.0); MYELOCYTES % 1 % (0-0); NEUTROPHILS % (MANUAL) 69 (42-76)
[2022-05-31] MEDS ORDERED: PHENYLEPHRINE 100 MG in IV NS 0.9% 240 ML IV PRN (12:30)
--- NOTE | 2022-05-31 12:43 | NUR ---
RN NOTES ONE UNIT OF PLT INFUSED PER ORDER , NO COMPLICATION NOTED, CONTINUE TO MONITOR.
--- NOTE | 2022-05-31 13:00 | NUR ---
RN NOTES PT OFF SEDATION , NO SIGNIFCANT CHANGES NOTED, DR OTERO AWARE,
[2022-05-31] MEDS: MICAFUNGIN SODIUM 100 MG in IV NS 0.9% 100 ML IV SCH (14:27)
[2022-05-31] MEDS ORDERED: TPN BAG #15 IV SCH ×4 (15:00)
[2022-05-31 15:49] LABS: D-DIMER 19.23 mg/L(FEU (0.17-0.50)
[2022-05-31] MEDS ORDERED: NOREPINEPHRINE 32 MG in IV NS 0.9% 218 ML IV PRN (16:00)
--- NOTE | 2022-05-31 16:00 | NUR ---
RN NOTS PTT 96.4 , AERIAL ERECTOR NOITIFED, ORDER RECEIVED TO TRANSFUSE ON UNIT OF FFP.
[2022-05-31] MEDS: Sodium Bicarbonate 100 MEQ in IV D5 / 0.2% NACL 1,000 ML IV SCH (16:34)
--- NOTE | 2022-05-31 18:00 | NUR ---
RN NOTES PT OBTUNDED, ON 100% FIO2, LEVO AT .2MCG/KG/MIN. TPN AT 80 CC/HR, BICARB AT 50CC/HR , NO DRAINING NOTED FROM DRAIN BAGS ON THIS SHIFT, PT RECEIVED HD TODAY , PT DNR , SR UP x3, CALL LIGHT WITHIN EASY REACH, BED LOCKED AND IN LOWEST POSITION, WILL ENDORSE TO GENERAL HELPER NURSE FOR CONTINUITY OF CARE .
--- NOTE | 2022-05-31 19:30 | NUR ---
RN/ICU-RECEIVED PT. FROM DAYSHIFT ADAM SANDHU, UNRESPONSIVE, ALL EXTREMITIES ARE FLACCID AND STIFF, WITH RIGHT UE CONTRACTED.ON THE VENT PER TRACHE#6 XLT W/ THE FOLLOWING SETTINGS:AC-28, FIO2-100%, VT-375, SATS.NOT TRACKING TACHYPNEIC, RR-40/MIN..EKG SR W/ HR-90/MIN. BP-110/59.ON LEVOPHED DRIP AT 0.2 MCG/KG/MIN., WILL TITRATE TO KEEP SBP 90.. ON TPN BAG# 15 AT 80ML/HR., NOTED FRESH BLOOD AROUND AND INSIDE THE TRACHE..PT. IS TO RECEIVED 1 UNIT FFP SOON AVAILABLE.(PTT-96.4).ANURIC, AFEBRILE,TEMPT.-97.5/ORALLY.CODE STATUS"DO NOT RESUSCITATE.".
[2022-05-31] MEDS ORDERED: MEROPENEM 1 G VIAL IV ONE (21:16)
--- NOTE | 2022-05-31 21:36 | NUR ---
RN/ICU-I UNIT OF FFP TRANSFUSED W/ NO REACTION
--- NOTE | 2022-05-31 22:02 | NUR ---
RN/ICU-PT. REMAINS VERY TACHYPNEIC, RR ON THE 40'S PER MINUTE, DIPRIVAN DRIP RESTARTED AT 5 MCG/KG/MIN. PER PROTOCOL.WILL TITRATE ACCORDINGLY
[2022-06-01] VITALS (24 sets, daily range): BP systolic 47–111; BP diastolic 18–63
--- NOTE | 2022-06-01 02:00 | NUR ---
RN/ICU- WOUND CARE AND TREATMENT DONE PER MD ORDER.
[2022-06-01] MEDS ORDERED: TPN BAG #16 IV SCH ×2 (03:00)
[2022-06-01] MEDS: IV NS 0.9% 250 ML IV PRN (03:51)
[2022-06-01 04:15] LABS: CALCIUM, SERUM 8.2 mg/dL (8.5-10.1); CREATININE 1.7 mg/dL (0.6-1.3); MAGNESIUM 2.1 mg/dL (1.8-2.4); PHOSPHORUS 6.5 mg/dL (2.5-4.9); POTASSIUM 4.5 mmol/L (3.5-5.1)
[2022-06-01] MEDS: HYDROCORTISONE SOD SUCCINATE 100 MG/2 ML VIAL IV SCH (05:15)
[2022-06-01] MEDS: METOCLOPRAMIDE HCL 10 MG/2 ML VIAL IV SCH (05:16)
[2022-06-01] MEDS: INSULIN REGULAR, HUMAN 100 UNIT/ML 3 ML VIAL SQ PRN (05:44)
[2022-06-01] MEDS: BLOOD SUGAR DIAGNOSTIC 1 EACH STRIP IN SCH (05:44)
--- NOTE | 2022-06-01 06:26 | NUR ---
RN/ICU- PT. REMAINS VERY UNSTABLE, BP-75/55, HR-60 REGULAR, JUNCTIONAL,REMAINS TACHYPNEIC, AFTER PUTTING DIPRIVAN ON HOLD DUE TO LOW BP, REMAINS ON LEVOPHED AT 0.7 MCG/KG/MIN. WILL CONTINUE TO MONITOR CLOSELY.REMAINS A "DNR" STATUS.
--- NOTE | 2022-06-01 07:30 | NUR ---
RECEIVED REPORT FROM [facility]. PATIENT IN UNSTABLE CONDITION. SAFETY MEASURES IN PLACE. COPIOUS SECRETIONS NOTED, WILL SUCTION NEEDED. TELEMETRY MONITORING READING JUNCTIONAL RYTHYM. WILL CONTINUE PLAN OF CARE AND ANTICIPATE NEEDS. DNR STATUS NOTED.
[2022-06-01] MEDS: PANTOPRAZOLE 40 MG VIAL IV SCH (07:55)
--- NOTE | 2022-06-01 08:17 | NUR ---
PATIENT NOTED ASYTOLE ON MONITOR. NO PALPABLE PERIPHERAL PULSES. NO HEART TONE. PUPILS FIXED AND DILATED. NO SPONTANEOUS BREATHING OVER THE VENT. PATIENT DNR. PRONOUNCED.
--- NOTE | 2022-06-01 08:29 | NUR ---
ICU/RN RN UNABLE TO OBTAIN BLOOD PRESSURE FROM THE PATIENT, ATTEMPTED SEVERAL TIMES. HR LOWERING TO 40S. PT BECAME ASYSTOLE, NO PULSE PALPABLE ON FEMORAL ARTERIES, CAROTID ARTERIES AND APICAL. PT IS DNR STATUS. TIME OF CALLED AT 0817.
--- NOTE | 2022-06-01 08:31 | NUR ---
ICU/RN ATTEMPTED TO CONTACT FAMILY MATTHEW PERRY AT [phone], CALLED TWICE, NO RESPONSE, MESSAGE LEFT. ATTEMPTED TO CALL MORELIA PERRY AT [phone], CALLED TWICE, NO RESPONSE, VOICEMAIL IS NOT SET UP, UNABLE TO LEAVE MESSAGE. [facility] RESIDED PREVIOUSLY TO OBTAIN FURTHER FAMILY MEMBERS.
--- NOTE | 2022-06-01 08:32 | NUR ---
ICU/RN [facility] CALLED AT 0825. . TALKED TO KRISTI Hightower
--- NOTE | 2022-06-01 08:54 | NUR ---
ICU/N TALKED TO SISTER RADHIKA PERRY. SISTER NOTIFIED OF PT'S PASSING. RN INFORMED FAMILY OF PROCESS OF CLAIMING BODY. SISTER RADHIKA STATES SHE WILL CALL SON MATTHEW TO COME CLAIM PT'S BODY. RN INFORMED SISTER THAT THE BODY WILL BE MOVED TO THE [facility] WITHIN 2HOURS OF PASSING.
--- NOTE | 2022-06-01 09:42 | NUR ---
ICU/GENERAL MANAGER [facility] CALLED FOR [facility] SPECIAL[facility] OF THE BODY. BODY PICKED UP AT 0942 BY HOSPITAL SECURITY STAFF.
[2022-06-01 11:41] LABS: D-DIMER 25.47 mg/L(FEU (0.17-0.50)
[2022-06-02] MEDS ORDERED: EPOETIN ALFA-EPBX 20,000 UNIT/ML VIAL SQ SCH (15:00)
== END 2022-06-01 08:17 | DRG 710 ==
LOC: ER 17:57 → TRANSITION 21:53 → TELE1 03-27 19:22 → TELE-TD 03-28 21:05 → TELE1 03-29 08:49 → TELE-TD 04-24 22:46 → ICU 04-26 16:01 → TELE-TD 05-03 20:21 → TELE1 05-06 07:45 → ICU 05-16 12:55 → TELE-TD 05-27 15:50 → ICU 05-30 11:15
PROVIDERS: ADMIT Nurse Practitioner Acute Care; ATTEND Nurse Practitioner Acute Care
PROC: 5A1955Z Respiratory Ventilation, Greater than 96 Consecutive Hours (ICD-10-PCS; principal; 2022-03-26)
PROC: 30233N1 Transfusion of Nonautologous Red Blood Cells into Peripheral Vein, Percutaneous Approach (ICD-10-PCS; 2022-03-26)
PROC: 0KBN0ZZ Excision of Right Hip Muscle, Open Approach (ICD-10-PCS; 2022-03-30)
PROC: 0QB10ZZ Excision of Sacrum, Open Approach (ICD-10-PCS; 2022-03-30)
PROC: 0QB10ZZ Excision of Sacrum, Open Approach (ICD-10-PCS; 2022-04-06)
PROC: 0KBN0ZZ Excision of Right Hip Muscle, Open Approach (ICD-10-PCS; 2022-04-06)
PROC: 5A1D70Z Performance of Urinary Filtration, Intermittent, Less than 6 Hours Per Day (ICD-10-PCS; 2022-04-07)
PROC: 06HY33Z Insertion of Infusion Device into Lower Vein, Percutaneous Approach (ICD-10-PCS; 2022-04-07)
PROC: 05H933Z Insertion of Infusion Device into Right Brachial Vein, Percutaneous Approach (ICD-10-PCS; 2022-04-10)
PROC: 0QB10ZZ Excision of Sacrum, Open Approach (ICD-10-PCS; 2022-04-14)
PROC: 0QB10ZZ Excision of Sacrum, Open Approach (ICD-10-PCS; 2022-04-21)
PROC: 02HV33Z Insertion of Infusion Device into Superior Vena Cava, Percutaneous Approach (ICD-10-PCS; 2022-04-28)
PROC: B548ZZA Ultrasonography of Superior Vena Cava, Guidance (ICD-10-PCS; 2022-04-28)
PROC: 0K9P30Z Drainage of Left Hip Muscle with Drainage Device, Percutaneous Approach (ICD-10-PCS; 2022-04-29)
PROC: 0QB10ZZ Excision of Sacrum, Open Approach (ICD-10-PCS; 2022-05-03)
PROC: 0KBN0ZZ Excision of Right Hip Muscle, Open Approach (ICD-10-PCS; 2022-05-03)
PROC: 0QB10ZZ Excision of Sacrum, Open Approach (ICD-10-PCS; 2022-05-11)
PROC: 0KBN0ZZ Excision of Right Hip Muscle, Open Approach (ICD-10-PCS; 2022-05-11)
PROC: 0KBP0ZZ Excision of Left Hip Muscle, Open Approach (ICD-10-PCS; 2022-05-19)
PROC: 0KBN0ZZ Excision of Right Hip Muscle, Open Approach (ICD-10-PCS; 2022-05-19)
PROC: 06HY33Z Insertion of Infusion Device into Lower Vein, Percutaneous Approach (ICD-10-PCS; 2022-05-20)
PROC: 02HV33Z Insertion of Infusion Device into Superior Vena Cava, Percutaneous Approach (ICD-10-PCS; 2022-05-29)
PROC: B548ZZA Ultrasonography of Superior Vena Cava, Guidance (ICD-10-PCS; 2022-05-29)
PROC: 30233R1 Transfusion of Nonautologous Platelets into Peripheral Vein, Percutaneous Approach (ICD-10-PCS; 2022-05-30)
PROC: 30233K1 Transfusion of Nonautologous Frozen Plasma into Peripheral Vein, Percutaneous Approach (ICD-10-PCS; 2022-05-31)
DX: A41.50 Gram-negative sepsis, unspecified (principal); J96.21 Acute and chronic respiratory failure with hypoxia; N17.0 Acute kidney failure with tubular necrosis; G92.8 Other toxic encephalopathy; J95.851 Ventilator associated pneumonia; D61.89 Other specified aplastic anemias and other bone marrow failure syndromes; E43 Unspecified severe protein-calorie malnutrition; R64 Cachexia; B49 Unspecified mycosis; B37.7 Candidal sepsis; J15.6 Pneumonia due to other Gram-negative bacteria; I13.2 Hypertensive heart and chronic kidney disease with heart failure and with stage 5 chronic kidney disease, or end stage renal disease; K68.12 Psoas muscle abscess; K81.0 Acute cholecystitis; L89.893 Pressure ulcer of other site, stage 3; L89.154 Pressure ulcer of sacral region, stage 4; L89.314 Pressure ulcer of right buttock, stage 4; D68.59 Other primary thrombophilia; Y84.8 Other medical procedures as the cause of abnormal reaction of the patient, or of later complication, without mention of misadventure at the time of the procedure; Z20.822 Contact with and (suspected) exposure to COVID-19; Z99.11 Dependence on respirator [ventilator] status; Z99.2 Dependence on renal dialysis; Z90.49 Acquired absence of other specified parts of digestive tract; Z66 Do not resuscitate; Z51.5 Encounter for palliative care; E11.69 Type 2 diabetes mellitus with other specified complication; E11.36 Type 2 diabetes mellitus with diabetic cataract; E11.43 Type 2 diabetes mellitus with diabetic autonomic (poly)neuropathy; I50.9 Heart failure, unspecified; M46.28 Osteomyelitis of vertebra, sacral and sacrococcygeal region; I69.351 Hemiplegia and hemiparesis following cerebral infarction affecting right dominant side; G40.909 Epilepsy, unspecified, not intractable, without status epilepticus; Z98.890 Other specified postprocedural states; K22.70 Barrett's esophagus without dysplasia; M62.461 Contracture of muscle, right lower leg; M62.421 Contracture of muscle, right upper arm; E11.22 Type 2 diabetes mellitus with diabetic chronic kidney disease; Z95.1 Presence of aortocoronary bypass graft; Z79.4 Long term (current) use of insulin; Z79.899 Other long term (current) drug therapy; Y95 Nosocomial condition; K21.9 Gastro-esophageal reflux disease without esophagitis; Z74.09 Other reduced mobility; D17.79 Benign lipomatous neoplasm of other sites; E78.5 Hyperlipidemia, unspecified; E78.1 Pure hyperglyceridemia; K31.84 Gastroparesis; K82.8 Other specified diseases of gallbladder; N18.6 End stage renal disease; N28.89 Other specified disorders of kidney and ureter; Z16.24 Resistance to multiple antibiotics; R53.2 Functional quadriplegia; N20.0 Calculus of kidney; E87.20 Acidosis, unspecified; E87.6 Hypokalemia; N39.0 Urinary tract infection, site not specified; B86 Scabies; L89.326 Pressure-induced deep tissue damage of left buttock; J39.8 Other specified diseases of upper respiratory tract; I48.92 Unspecified atrial flutter; E88.09 Other disorders of plasma-protein metabolism, not elsewhere classified; K94.23 Gastrostomy malfunction; Y83.3 Surgical operation with formation of external stoma as the cause of abnormal reaction of the patient, or of later complication, without mention of misadventure at the time of the procedure; Y92.230 Patient room in hospital as the place of occurrence of the external cause; B96.1 Klebsiella pneumoniae [K. pneumoniae] as the cause of diseases classified elsewhere; B95.2 Enterococcus as the cause of diseases classified elsewhere; B95.7 Other staphylococcus as the cause of diseases classified elsewhere; D72.820 Lymphocytosis (symptomatic); D72.821 Monocytosis (symptomatic); Z68.1 Body mass index [BMI] 19.9 or less, adult; D63.1 Anemia in chronic kidney disease; E87.0 Hyperosmolality and hypernatremia; E87.1 Hypo-osmolality and hyponatremia; Z16.12 Extended spectrum beta lactamase (ESBL) resistance; D69.6 Thrombocytopenia, unspecified; Y92.129 Unspecified place in nursing home as the place of occurrence of the external cause; L89.626 Pressure-induced deep tissue damage of left heel; L89.616 Pressure-induced deep tissue damage of right heel; B96.20 Unspecified Escherichia coli [E. coli] as the cause of diseases classified elsewhere; J93.82 Other air leak
CPT/HCPCS: 31720; 36410; 36415; 36569; 36600; 71045-TC; 73700-TC; 74018; 74178; 75989-TC; 76700-TC; 76856-TC; 80048-TC; 80053-TC; 80061-TC; 80076-TC; 80150; 80202-TC; 81001; 82040-TC; 82272-TC; 82533; 82728-TC; 82803-TC; 82962-TC; 83540-TC; 83605-TC; 83615-TC; 83735-TC; 83880; 84100-TC; 84134-TC; 84478-TC; 84484-TC; 85025-TC; 85027-TC; 85385-TC; 85396; 85610-TC; 85730-TC; 86704; 86705; 86706; 86709-TC; 86850-TC; 87040-TC; 87070-TC; 87081-TC; 87086-TC; 87186-TC; 87340; 90935-TC; 93307-TC; 94002-TC; 94003-TC; 94640-TC; 94760-TC; 94762-TC; 94799-TC; 99082-TC; A4215; A4216; A4623; A6253; A6403; A7526; A9563; C9113; C9803; G0378; J0278; J0885; J1720; J1815; J1956; J2060; J2185; J2248; J2250; J2270; J2370; J2405; J2765; J3010; J3370; J3430; J3475; J3480; J3490; J7030; J7040; J7050; J7060; J7070; P9016; P9017; P9034; P9047; Q9963; Q9967